=== PATIENT | male | born 1935 | race Caucasian/White ===

== ENCOUNTER → 2016-07-27 | Outpatient (CLI) | payer OTHER ==
[~2016-07-27] MED LIST: ALFU10TA30 PO; AMR2 PO; ASPEC81 PO; ASPI81TA28 PO; ATEN50TA8 PO; ATOR-24 PO; BICA50TA2 PO; BMX1 PO; BUME1TAB PO; CALC500C2 PO; CIPR-255 PO; CLCC1250 PO; CLOP1TAB15 PO; CSD50 PO; DTR5 PO; DUTA0.5C PO; GLIM2TAB PO; GLUC15002 PO; HYDC25 PO; HYDR25TA4 PO; HYDR25TA5 PO; ISOS120T5 PO; ISOS60TA25 PO; LOSA100T65 PO; LOSA1TAB38 PO; LPT40 PO; METF-384 PO; METF1000 PO; MULT-506 PO; NIAC1TAB5 PO; NITR0.4S UT; NXM/40 PO; OXYBUTYNIN PO; OXYC-652 PO; OXYC1TAB3 PO; OXYSR/10 PO; POTA-74 PO; POTA10CA28 PO; SAW450CA5 PO; SULF800T23 PO; TAMS0.4C38 PO; TNR50 PO
[2016-07-27 11:22] LABS: CHOLESTEROL/HDL RATIO 3.1
[2016-07-27 11:40] LABS: ESTIMATED AVERAGE GLUCOSE 183 mg/dl; HA1C FLAG Normal (Normal)
== END | disposition home or self-care (01) ==
LOC: C.LABBC 08:32
PROVIDERS: ATTEND Internal Medicine Cardiovascular Disease
DX: D64.9 Anemia, unspecified (principal); N50.89 Other specified disorders of the male genital organs; W19.XXXA Unspecified fall, initial encounter; E11.9 Type 2 diabetes mellitus without complications; I25.10 Atherosclerotic heart disease of native coronary artery without angina pectoris

== ENCOUNTER → 2016-08-17 | Outpatient (CLI) | payer OTHER ==
[2016-08-17 11:14] LABS: BLOOD UREA NITROGEN 30 mg/dl (7-18); BUN/CREATININE RATIO 21.6 (10-20); CALCIUM 9.1 mg/dl (8.5-10.1); CARBON DIOXIDE 28 mmol/L (21-32); CHLORIDE 101 mmol/L (98-107); GLUCOSE 258 mg/dl (70-99); MAGNESIUM 1.4 mg/dl (1.8-2.4); POTASSIUM 4.5 mmol/L (3.5-5.1); SODIUM 139 mmol/L (136-145)
== END | disposition home or self-care (01) ==
LOC: C.LABBC 08:40
PROVIDERS: ATTEND Internal Medicine
DX: I51.9 Heart disease, unspecified (principal)

== ENCOUNTER 2016-11-09 08:36 | Emergency (ER) | payer OTHER ==
[~2016-11-09] VITALS: Ht 175.3 cm; Wt 125.0 kg
[~2016-11-09 08:36] MED LIST changes: -ALFU10TA30 PO; -ASPI81TA28 PO; -BICA50TA2 PO; -BMX1 PO; -BUME1TAB PO; -CALC500C2 PO; -CIPR-255 PO; -CLOP1TAB15 PO; -CSD50 PO; -DTR5 PO; -DUTA0.5C PO; -GLIM2TAB PO; -GLUC15002 PO; -HYDR25TA4 PO; -HYDR25TA5 PO; -ISOS120T5 PO; -LOSA100T65 PO; -LPT40 PO; -METF-384 PO; -METF1000 PO; -MULT-506 PO; -NIAC1TAB5 PO; -NITR0.4S UT; -NXM/40 PO; -OXYBUTYNIN PO; -OXYC-652 PO; -OXYC1TAB3 PO; -OXYSR/10 PO; -POTA-74 PO; -SAW450CA5 PO; -SULF800T23 PO; -TAMS0.4C38 PO; -TNR50 PO
[2016-11-09 08:42] VITALS: TEMP 36.4; Ht 175.3 cm; Wt 125.0 kg
[2016-11-09] MEDS ORDERED: OXYSR/10 PO (09:27)
[2016-11-09] MEDS ORDERED: GLIM2TAB PO (09:27)
[2016-11-09] MEDS ORDERED: BUME1TAB PO (09:27)
[2016-11-09] MEDS ORDERED: HYDR25TA4 PO (09:27)
[2016-11-09 09:43] LABS: BASO % 0.4 %; BASO ABS # 0.02 K/uL (0-0.2); COMPLETE YES; EOS % 1.9 %; HEMATOCRIT 35.1 % (42-52); IG% 0.4 %; LYMPH % 24.1 %; LYMPH ABS # 1.37 K/uL (1.2-3.4); MEAN CELL VOLUME 94.9 fL (80-100); MEAN CORPUSCULAR HEMOGLOBIN 30.5 pg (25-34); MEAN CORPUSCULAR HGB CONC 32.2 g/dl (32-36); MEAN PLATELET VOLUME 10.7 fL (7.4-10.4); MONO % 7.7 %; NEUT % 65.5 %; PLATELET COUNT 241 K/uL (130-400); WHITE BLOOD COUNT 5.69 K/uL (4.8-10.8)
[2016-11-09 10:12] LABS: URINE APPEARANCE CLEAR (CLEAR); URINE BILIRUBIN NEG (NEG); URINE COLOR YELLOW; URINE NITRITE NEG (NEG); URINE SPECIFIC GRAVITY 1.018 (1.000-1.030); UROBILINOGEN NEG (NEG)
[2016-11-09 10:15] LABS: MANUAL MICROSCOPIC REQUIRED? NO; REVIEW REQ? NO
[2016-11-09 10:19] LABS: ALKALINE PHOSPHATASE 74 U/L (45-117); ALT/SGPT 25 U/L (12-78); AST/SGOT 25 U/L (15-37)
--- NOTE | 2016-11-09 11:01 | EMERGENCY ROOM VISIT NOTE ---
ED Visit Note First contact with patient: 09:06 The patient was seen and examined with Jensen Maier PA-C. I agree with the history, physical and findings. Please see the note for disposition and details.
[2016-11-09 12:13] VITALS: BP 179/73; PULSE 65; O2SAT 94
--- NOTE | 2016-11-10 12:12 | EMERGENCY ROOM VISIT NOTE ---
ED Visit Note First contact with patient: 09:06 Chief Complaint: I'm having problems urinating. History of Present Illness: Mr. Hallman is an 81-year-old white male who ambulates with a walker into the emergency department accompanied by his complaining of urinary urgency and dysuria. Historically patient reports he has a history of urinary retention after surgery and has benign prostatic hypertrophy. Patient reports for the 3-4 days he has been having sensation of urinary urgency and when he attempts to go to the bathroom he is only able to dribble and when he is done he has feelings of incomplete voiding. He reports initially these feelings were mild but has gradually increased over the last 3- 4 days. Associated with the symptoms he reports that he has a pressure-like sensation in the suprapubic area. He rates this discomfort 5/10. The pain is nonradiating. The pain worsens with palpation, sitting in a bumpy car or do her urination. He has not identified any alleviating factors related to the discomfort. He has not taken any medications for his discomfort prior to arrival at the hospital. He denies any associated fevers, chills, sweats, skin eruptions, skin color changes, upper respiratory tract symptoms, shortness of breath, chest pain, upper abdominal pain, nausea, vomiting, back/flank pain, hematuria, urinary burning. Review of Systems: As noted above in history of present illness. All body systems were reviewed and found to be negative as noted above. Past Medical History: (1) Anemia (2) Angina (3) Benign hypertension (4) Cellulitis (5) Coronary artery bypass grafting (6) Diabetes mellitus (7) Hyperlipidemia (8) Left ventricular diastolic dysfunction (9) Myocardial infarction (10) Obesity (11) Osteoarthritis (12) REFLUX ESOPHAGITIS Current Medications: Medications Dose Route/Sig Max Daily Dose Days Date Category Dose Instructions Glucophage (Metformin Hcl) 1,000 Mg Tab 500 Mg PO QDL 11/09/16 Reported [place] (Saw [place] (Serenoa Repens)) 450 Mg Cap 1 Cap PO DAILY 11/09/16 Reported Glucosamine 1500 Complex (Dzhicpteliv-Biengibbgyx-Iih C-) 1 Cap Cap 2 Cap PO DAILY 11/09/16 Reported Bumex (Bumetanide) 1 Mg Tab 2 Tab PO DAILY 11/09/16 Reported Oxycontin (Oxycodone HCl) 10 Mg Tabcr 1 Tab PO BID 11/09/16 Reported Hctz (Hydrochlorothiazide) 25 Mg Tab 25 Mg PO QAM 11/09/16 Reported Amaryl (Glimepiride) 2 Mg Tab 2 Mg PO BID 11/09/16 Reported Antacid (Calcium Carbonate (Antacid)) 500 Mg Chw 250 Mg PO BID 11/09/16 Reported Aspirin Ec (Aspirin) 81 Mg Tab 81 Mg PO DAILY 11/09/16 Reported Uroxatral (Alfuzosin HCl) 10 Mg Tab 10 Mg PO DAILY 05/04/16 Reported Plavix (Clopidogrel Bisulfate) 75 Mg Tab 75 Mg PO DAILY 05/04/16 Reported Micro-K Ext Rel (Potassium Chloride) 10 Meq Capcr 2 Tab PO DAILY 05/21/14 Reported Lipitor (Atorvastatin Calcium) 40 Mg Tab 40 Mg PO HS 02/24/14 Reported Nitrostat (Nitroglycerin) 0.4 Mg Sub 0.4 Mg UT PRN 11/24/12 Reported Niacin 500 Mg Tab 1,000 Mg PO QPM 11/24/12 Reported Avodart (Dutasteride) 0.5 Mg Cap 0.5 Mg PO QAM 11/24/12 Reported Cozaar (Losartan Potassium) 100 Mg Tab 100 Mg PO QAM 11/24/12 Reported Glucophage (Metformin Hcl) 1,000 Mg Tab 1,000 Mg PO BID 11/24/12 Reported AM AND SUPPER Multivitamin (Multivitamins) Tab 1 Tab PO QAM 11/22/07 Reported Imdur Ext Rel (Isosorbide Mononitrate) 60 Mg Ertab 120 Mg PO QAM 11/22/07 Reported Nexium (Esomeprazole Magnesium) 40 Mg Capcr 40 Mg PO QPM 03/27/06 Reported Tenormin (Atenolol) 50 Mg Tab 50 Mg PO QAM 03/27/06 Reported Allergies to Medications: Amoxicillin, celecoxib, diclofenac and naproxen. Social History: Patient is not employed; he lives with his and feels safe in his home environment; he denies tobacco use. Physical Examination: Vital Signs: Date Time Temp Pulse Resp B/P Pulse Ox O2 Delivery O2 Flow Rate FiO2 11/09/16 12:13 65 18 179/73 94 11/09/16 11:22 52 18 129/75 94 Room Air 11/09/16 08:42 36.4 66 18 116/61 93 Room Air GENERAL: 81-year-old male in mild distress due to pain, nontoxic-appearing, afebrile and hemodynamically stable. NEUROLOGICAL: Awake, alert and oriented to person, place and time. Answering questions appropriately and following commands. Good hand eye coordination. No focal motor sensory deficits. SKIN: Warm, dry and pink. No soft tissue eruptions or trauma noted. HEENT: Atraumatic and normocephalic. PERRLA. Sclera white and conjunctiva pink. Airway patent. Speech normal. No lymphadenopathy. Trachea midline. No jugular venous distention. BACK: No tenderness over the bony cervical, thoracic and lumbar spine. No CVA tenderness. THORAX: Lungs sounds are clear to auscultation and equal bilaterally with symmetrical chest wall. No wheezing, rales or rhonchi. HEART: Regular rate and rhythm. No gallops, rubs or murmurs are appreciated. ABDOMEN: Large and protuberant, soft with mild diffuse tenderness throughout the abdomen slightly more pronounced in the suprapubic area. Positive bowel sounds in all quadrants. No guarding, rigidity or organomegaly. EXTREMITIES: Moves all extremities well on command and with purpose. All distal neurovascular statuses are intact and equal bilaterally. Moderate to severe dependent lymphedema in the legs with prominence of the right leg. When questioned patient reports this was normal and has not worsened. ED Course: Patient is assessed as noted above. Laboratory Testing: Test 11/09/16 09:30 11/09/16 09:45 Range/Units White Blood Count 5.69 4.8-10.8 K/uL Red Blood Count 3.70 4.7-6.1 M/uL Hemoglobin 11.3 14.0-18.0 g/dL Hematocrit 35.1 42-52 % Mean Corpuscular Volume 94.9 80-100 fL Mean Corpuscular Hemoglobin 30.5 25-34 pg Mean Corpuscular Hemoglobin Concent 32.2 32-36 g/dl Platelet Count 241 130-400 K/uL Mean Platelet Volume 10.7 7.4-10.4 fL Neutrophils (%) (Auto) 65.5 % Lymphocytes (%) (Auto) 24.1 % Monocytes (%) (Auto) 7.7 % Eosinophils (%) (Auto) 1.9 % Basophils (%) (Auto) 0.4 % Neutrophils # (Auto) 3.73 1.4-6.5 K/uL Lymphocytes # (Auto) 1.37 1.2-3.4 K/uL Monocytes # (Auto) 0.44 0.11-0.59 K/uL Eosinophils # (Auto) 0.11 0-0.5 K/uL Basophils # (Auto) 0.02 0-0.2 K/uL RDW Standard Deviation 49.0 36.4-46.3 fL RDW Coefficient of Variation 14.2 11.5-14.5 % Immature Granulocyte % (Auto) 0.4 % Immature Granulocyte # (Auto) 0.02 0.00-0.02 K/uL Total Bilirubin 0.6 0.2-1 mg/dl Direct Bilirubin 0-0.2 mg/dl Aspartate Amino Transf (AST/SGOT) 25 15-37 U/L Alanine Aminotransferase (ALT/SGPT) 25 12-78 U/L Alkaline Phosphatase 74 45-117 U/L Total Protein 6.3 6.4-8.2 gm/dl Albumin 3.4 3.4-5.0 gm/dl Lipase 132 73-393 U/L Urine Color YELLOW Urine Appearance CLEAR CLEAR Urine pH 6.0 4.5-7.5 Urine Specific [place] 1.018 1.000-1.030 Urine Protein NEG NEG Urine Glucose (UA) TRACE NEG Urine Ketones NEG NEG Urine Occult Blood NEG NEG Urine Nitrite NEG NEG Urine Bilirubin NEG NEG Urine Urobilinogen NEG NEG Urine Leukocyte Esterase NEG NEG Urine Culture - Preliminary, NO GROWTH - LESS THAN 1,000 COLONIES/ ... Bladder Scan: 350 mL of urine. A Funk catheter was placed by nursing staff and left to drain; just prior to discharge I checked the bag and was approximately 750 mL in the bag. Patient was hydrated with normal saline; he was offered pain medications and refused. Patient was reassessed multiple times during his stay in the emergency department. Patient's case was reviewed with Dr. Delaney; he independently assessed the patient we agreed on diagnostic approach, treatment, disposition and plan. Patient sure on that her was switched to a leg bag. Patient are educated about tonight's findings and instructed on his treatment plan; they verbalized understanding and agreement with this plan. Clinical Impression: Acute urinary retention. Decision-Making: Initially my differential diagnosis I considered urinary retention, urinary tract infection, kidney stone and other causes. Disposition: Patient discharged home in stable condition accompanied by his ; prior to departure he was reassessed and subjectively reported he was pain and symptom-free. Plan: Patient was encouraged to continue his current medications as prescribed. Patient was encouraged to call his family doctor and his urologist for follow- up care and treatment and catheter removal. Patient was encouraged return the ED for any fevers, worsening abdominal discomfort, bloody urine, vomiting or any new/concerning symptoms.
[2016-11-20] MEDS ORDERED: SAW450CA5 PO (09:27)
[2016-11-20] MEDS ORDERED: CALC500C2 PO (09:27)
[2016-11-20] MEDS ORDERED: ASPI81TA28 PO (09:27)
[2016-11-20] MEDS ORDERED: GLUC15002 PO (09:27)
[2016-11-20] MEDS ORDERED: METF-384 PO (09:29)
[2016-11-20] MEDS ORDERED: MULT-506 PO (10:00)
[2016-11-20] MEDS ORDERED: CLOP1TAB15 PO (10:38)
[2016-11-20] MEDS ORDERED: ALFU10TA2 PO (10:40)
[2016-11-20] MEDS ORDERED: NXM/40 PO (15:58)
[2016-11-27] MEDS ORDERED: DTR5 PO (11:13)
[2017-03-18] MEDS ORDERED: OXYC1TAB3 PO (14:42)
== END 2016-11-09 12:14 | disposition home or self-care (01) ==
LOC: C.EDB 08:37
DX: R33.9 Retention of urine, unspecified (principal); I10 Essential (primary) hypertension; E11.9 Type 2 diabetes mellitus without complications; E78.5 Hyperlipidemia, unspecified; I25.2 Old myocardial infarction; K21.0 Gastro-esophageal reflux disease with esophagitis; M19.90 Unspecified osteoarthritis, unspecified site; Z98.61 Coronary angioplasty status; Z79.82 Long term (current) use of aspirin; Z79.899 Other long term (current) drug therapy; Z88.1 Allergy status to other antibiotic agents; Z88.8 Allergy status to other drugs, medicaments and biological substances

== ENCOUNTER 2016-11-16 20:37 | Emergency (ER) | payer OTHER ==
[~2016-11-16] VITALS: Ht 172.7 cm; Wt 127.3 kg
[~2016-11-16 20:37] MED LIST changes: -AMR2 PO; -ASPEC81 PO; +BUME1TAB PO; -CLCC1250 PO; +GLIM2TAB PO; -HYDC25 PO; +HYDR25TA4 PO; +OXYSR/10 PO
[2016-11-16 20:42] VITALS: TEMP 37; Ht 172.7 cm; Wt 127.3 kg
--- NOTE | 2016-11-16 21:22 | EMERGENCY ROOM VISIT NOTE ---
History Report prepared by Rosalinda: Sun Abraham Under the Supervision of: Dr. Julius Villanueva M.D. First contact with patient: 21:15 Chief Complaint: UNABLE TO VOID Stated Complaint: UNABLE TO URINATE,PAINFUL History of Present Illness The patient is a 81 year old male who presents to the Emergency Room with complaints of constant inability to void beginning 2 days ago. The patient states that he was seen here last week for similar symptoms and does not have an appointment with his urologist until the end of the month. He complains of dysuria. He denies any back pain. The patient reports that he did have an episode of incontinence just as he arrived to his room in the ED. Source of History: patient Onset: 2 days ago Position: other (urinary) Quality: other (inability to void) Timing: constant Associated Symptoms: + urinary symptoms, No abdominal pain Note: Pt notes incontinence. Review of Systems See HPI for pertinent positives & negatives. A total of 10 systems reviewed and were otherwise negative. Past Medical & Surgical Medical Problems: (1) Anemia (2) Angina (3) Benign hypertension (4) Cellulitis (5) Coronary artery bypass grafting (6) Diabetes mellitus (7) Hyperlipidemia (8) Left ventricular diastolic dysfunction (9) Myocardial infarction (10) Obesity (11) Osteoarthritis (12) REFLUX ESOPHAGITIS Family History Diabetes mellitus FH: prostate cancer FHx: colon cancer Hypertension Social History Smoking Status: Former Smoker Drug Use: none Marital Status: Housing Status: lives with family Occupation Status: retired Current/Historical Medications Scheduled Alfuzosin Hcl (Uroxatral), 10 MG PO DAILY Aspirin (Aspirin Ec), 81 MG PO DAILY Atenolol (Tenormin), 50 MG PO QAM Atorvastatin (Lipitor), 40 MG PO HS Bumetanide (Bumex), 2 TAB PO DAILY Calcium Carbonate (Antacid) (Antacid), 250 MG PO BID Clopidogrel (Plavix), 75 MG PO DAILY Dutasteride (Avodart), 0.5 MG PO QAM Esomeprazole Magnesium (Nexium), 40 MG PO QPM Glimepiride (Amaryl), 2 MG PO BID Kcibpeqjlsx-Gndhiunlsbh-Hyt C- (Glucosamine 1500 Complex), 2 CAP PO DAILY Hydrochlorothiazide (Hctz), 25 MG PO QAM Isosorbide Mononitrate Ext Rel (Imdur Ext Rel), 120 MG PO QAM Losartan Potassium (Cozaar), 100 MG PO QAM Metformin Hcl (Glucophage), 1,000 MG PO BID Metformin Hcl (Glucophage), 500 MG PO QDL Multivitamin (Multivitamin), 1 TAB PO QAM Niacin (Niacin), 1,000 MG PO QPM Nitroglycerin (Nitrostat), 0.4 MG UT PRN Oxycodone HCl (Oxycontin), 1 TAB PO BID Potassium Chloride (Micro-K Ext Rel), 2 TAB PO DAILY Saw [place] (Serenoa Repens) (Saw [place]), 1 CAP PO DAILY Sulfamethoxazole-Trimethoprim (Bactrim Ds 800MG/160MG), 1 TAB PO BID Allergies Coded Allergies: Adhesives (Verified Allergy, Unknown, DRAPES TORE PT'S SKIN OFF, 11/16/16) Bee Venom (Verified Allergy, Unknown, SWELLING, 11/16/16) Diclofenac (Verified Allergy, Unknown, 11/16/16) Naproxen (Verified Allergy, Unknown, 11/16/16) Amoxicillin (Verified Adverse Reaction, Unknown, CAUSES DIARRHEA, 11/16/16) Celecoxib (Verified Adverse Reaction, Unknown, gi bleed, 11/16/16) Physical Exam Vital Signs Date Time Temp Pulse Resp B/P Pulse Ox O2 Delivery O2 Flow Rate FiO2 11/16/16 20:42 37.0 66 18 179/86 90 Room Air Physical Exam GENERAL: Patient is a healthy-appearing well-nourished HEAD: Normocephalic atraumatic EYES: Ocular movements intact pupils equal and react to light OROPHARYNX mucous membranes are moist no exudates present no erythema or edema present NECK: Supple no nuchal rigidity CHEST: Good equal expansion LUNGS: Clear and equal to auscultation CARDIAC: Normal S1 and S2 ABDOMEN: Soft nontender no guarding BACK: No CVA tenderness, no evidence of tenderness to the back. EXTREMITIES: No pain upon palpation normal muscle strength in all groups no clubbing cyanosis or edema. NEURO: Patient is following commands is answering questions appropriately. Alert and oriented x3 Cranial Nerves 2-12 grossly intact. No evidence of saddle anesthesia. Medical Decision & Procedures Laboratory Results Test 11/16/16 22:18 Urine Color YELLOW Urine Appearance CLEAR (CLEAR) Urine pH 5.0 (4.5-7.5) Urine Specific [place] 1.010 (1.000-1.030) Urine Protein NEG (NEG) Urine Glucose (UA) 1+ (NEG) Urine Ketones NEG (NEG) Urine Occult Blood TRACE (NEG) Urine Nitrite NEG (NEG) Urine Bilirubin NEG (NEG) Urine Urobilinogen NEG (NEG) Urine Leukocyte Esterase TRACE (NEG) Urine WBC (Auto) 1-5 /hpf (0-5) Urine RBC (Auto) 0-4 /hpf (0-4) Urine Hyaline Casts (Auto) 1-5 /lpf (0-5) Urine Epithelial Cells (Auto) 5-10 /lpf (0-5) Urine Bacteria (Auto) NEG (NEG) Labs reviewed by ED physician. Medications Administered Medications (Trade) Dose Ordered Sig/Jez Route Start Time Stop Time Status Last Admin Dose Admin Tamsulosin HCl (Flomax Cap) 0.4 mg NOW STAT PO 11/16/16 22:16 11/16/16 22:17 DC 11/16/16 22:43 0.4 MG ED Course 2114: Past medical records reviewed. The patient was evaluated in room B11B. A complete history and physical examination was performed. Medical Decision This is an 81-year-old male who presents emergency department complaining of urinary retention. The patient on bladder scan has 480 present. However with a Funk placed the patient has more than 800 out. Based on these findings I believe the patient was having overflow incontinence. He is feeling much better with the Funk in place. I feel he can be safely discharged home for follow-up with urology. Patient was in agreement with the treatment plan. Impression Primary Impression: Urinary retention Scribe Attestation The scribe's documentation has been prepared under my direction and personally reviewed by me in its entirety. I confirm that the note above accurately reflects all work, treatment, procedures, and medical decision making performed by me. Departure Information Dispostion Home / Self-Care Referrals Kori Parmar D.O. (PCP) Patient Instructions My [facility]
[2016-11-16] MEDS ORDERED: TAMSULOSIN HCL 0.4 MG CAP PO STA (22:16)
[2016-11-16] MEDS ORDERED: TAMS0.4C38 PO (22:17)
[2016-11-16 22:40] VITALS: BP 120/58; PULSE 60; O2SAT 93
[2016-11-16 22:46] LABS: URINE APPEARANCE CLEAR (CLEAR); URINE BILIRUBIN NEG (NEG); URINE COLOR YELLOW; URINE NITRITE NEG (NEG); UROBILINOGEN NEG (NEG); ZZURINE CULT IF INDIC CATH NO
[2016-11-16 22:48] LABS: MANUAL MICROSCOPIC REQUIRED? NO; REVIEW REQ? NO
[2016-11-20] MEDS ORDERED: GLUC15002 PO (09:27)
[2016-11-20] MEDS ORDERED: CALC500C2 PO (09:27)
[2016-11-20] MEDS ORDERED: SAW450CA5 PO (09:27)
[2016-11-20] MEDS ORDERED: ASPI81TA28 PO (09:27)
[2016-11-20] MEDS ORDERED: METF-384 PO (09:29)
[2016-11-20] MEDS ORDERED: MULT-506 PO (10:00)
[2016-11-20] MEDS ORDERED: CLOP1TAB15 PO (10:38)
[2016-11-20] MEDS ORDERED: ALFU10TA2 PO (10:40)
[2016-11-20] MEDS ORDERED: NXM/40 PO (15:58)
[2016-11-27] MEDS ORDERED: DTR5 PO (11:13)
[2017-03-18] MEDS ORDERED: OXYC1TAB3 PO (14:42)
== END 2016-11-16 22:41 | disposition home or self-care (01) ==
LOC: C.EDB 20:38
DX: R33.9 Retention of urine, unspecified (principal); I10 Essential (primary) hypertension; E78.5 Hyperlipidemia, unspecified; E11.9 Type 2 diabetes mellitus without complications; I25.2 Old myocardial infarction; K21.9 Gastro-esophageal reflux disease without esophagitis; M19.90 Unspecified osteoarthritis, unspecified site; Z98.61 Coronary angioplasty status; Z87.891 Personal history of nicotine dependence; Z79.82 Long term (current) use of aspirin; Z79.4 Long term (current) use of insulin; Z79.899 Other long term (current) drug therapy; Z88.1 Allergy status to other antibiotic agents; Z88.8 Allergy status to other drugs, medicaments and biological substances; Z91.030 Bee allergy status; Z91.09 Other allergy status, other than to drugs and biological substances; Z83.3 Family history of diabetes mellitus; Z82.49 Family history of ischemic heart disease and other diseases of the circulatory system; Z80.9 Family history of malignant neoplasm, unspecified; Z80.42 Family history of malignant neoplasm of prostate

== ENCOUNTER 2016-11-20 17:25 | Inpatient (IN) | payer OTHER ==
[~2016-11-20] VITALS: Ht 175.3 cm; Wt 128.6 kg
[~2016-11-20 17:25] MED LIST changes: +ALFU10TA2 PO; +ASPI81TA28 PO; +CALC500C2 PO; +CLOP1TAB15 PO; +GLUC15002 PO; +METF-384 PO; +MULT-506 PO; +NXM/40 PO; +SAW450CA5 PO
[2016-11-20] MEDS ORDERED: LPT40 PO (18:26)
[2016-11-20] MEDS ORDERED: AMR2 PO (18:26)
[2016-11-20] MEDS ORDERED: POTA-74 PO (18:26)
[2016-11-20] MEDS ORDERED: TNR50 PO (18:26)
[2016-11-20] MEDS ORDERED: LOSA100T65 PO (18:26)
[2016-11-20] MEDS ORDERED: ISOS120T5 PO (18:26)
[2016-11-20] MEDS ORDERED: OXYC-738 PO (18:26)
[2016-11-20] MEDS ORDERED: BMX1 PO (18:35)
[2016-11-20] MEDS ORDERED: HYDR25TA5 PO (18:35)
[2016-11-20 18:47] LABS: BASO % 0.8 %; BASO ABS # 0.05 K/uL (0-0.2); COMPLETE YES; EOS % 3.2 %; HEMATOCRIT 35.5 % (42-52); IG% 0.3 %; LYMPH % 30.2 %; LYMPH ABS # 1.97 K/uL (1.2-3.4); MEAN CELL VOLUME 93.9 fL (80-100); MEAN PLATELET VOLUME 10.4 fL (7.4-10.4); MONO % 6.3 %; NEUT % 59.2 %; PLATELET COUNT 244 K/uL (130-400); RED BLOOD COUNT 3.78 M/uL (4.7-6.1); WHITE BLOOD COUNT 6.53 K/uL (4.8-10.8)
--- NOTE | 2016-11-20 18:57 | DIAGNOSTIC IMAGING REPORT ---
CT SCAN OF THE ABDOMEN AND PELVIS WITHOUT CONTRAST CLINICAL HISTORY: Hematuria. Inability to void. COMPARISON STUDY: No previous studies for comparison. TECHNIQUE: CT scan of the abdomen and pelvis was performed from the lung bases to the proximal femurs. Images are reviewed in the axial, sagittal, and coronal planes. IV contrast was not administered for this examination. CT DOSE: 1903.48 mGy.cm FINDINGS: Lower chest: There are mild basilar atelectatic changes. There is a small hiatal hernia. Liver: There is a 2 cm left lobe hypodensity, likely representing a cyst. Gallbladder: Unremarkable. Spleen: Normal in size and attenuation. Pancreas: Unremarkable. Adrenal glands: There is minor nodular thickening of the left adrenal gland. Kidneys: No renal, ureteral, or bladder calculi are visualized. There is a 3 cm upper pole right renal cyst. Bowel: There are no transition zones to indicate bowel obstruction. There is extensive colonic diverticulosis. There are no acute peridiverticular inflammatory changes present. There are no findings to indicate acute appendicitis. Peritoneum: There is no intraperitoneal free air or abdominal ascites. There is a small fat-containing umbilical hernia. There multiple additional fat-containing upper abdominal ventral hernias. Vasculature: The abdominal aorta is normal in course and caliber. Adenopathy: None. Pelvic viscera: There is indwelling Funk catheter present. The prostate is enlarged measuring 5.9 cm transversely. There is air within the bladder, likely iatrogenic. There is increased density within the bladder, likely are presenting hemorrhage. There is mild bladder wall thickening. Several small diverticula are suspected. Skeletal structures: There are postsurgical changes of a total right hip arthroplasty. There are moderately advanced multilevel degenerative changes present within the spine area there is epidural gas at the L5-S1 level, likely secondary to degenerative disc disease/disc herniation. IMPRESSION: 1. No evidence of bowel obstruction. No evidence of free air 2. Pandiverticulosis. No evidence of acute diverticulitis 3. Multiple fat-containing ventral hernias 4. Enlarged prostate 5. Presumed hemorrhage within the bladder. Mild bladder wall thickening with several small bladder diverticula. Electronically signed by: Jimmy Catalan M.D. 11/20/2016 6:55 PM Dictated Date/Time: 11/20/2016 6:48 PM
[2016-11-20 19:05] LABS: ALT/SGPT 30 U/L (12-78); AST/SGOT 20 U/L (15-37); BLOOD UREA NITROGEN 32 mg/dl (7-18); BUN/CREATININE RATIO 21.1 (10-20); CALCIUM 9.5 mg/dl (8.5-10.1); CARBON DIOXIDE 30 mmol/L (21-32); CHLORIDE 101 mmol/L (98-107); GLUCOSE 162 mg/dl (70-99); POTASSIUM 4.3 mmol/L (3.5-5.1); SODIUM 139 mmol/L (136-145)
[2016-11-20 19:07] LABS: ALKALINE PHOSPHATASE 80 U/L (45-117)
[2016-11-20] MEDS ORDERED: NIACIN 500 MG TAB IMMEDIATE RELEASE PO STA (19:24)
[2016-11-20] MEDS ORDERED: ATORVASTATIN 40 MG TAB PO STA (19:24)
[2016-11-20] MEDS ORDERED: METFORMIN HCL 500 MG TAB PO STA (19:24)
[2016-11-20] MEDS ORDERED: SULFAMETHOXAZOLE/TRIMETHOPRIM DS 800/160MG TAB PO STA (19:24)
[2016-11-20] MEDS ORDERED: OXYCODONE HCL IR 5 MG TAB (IMMEDIATE RELEASE) PO STA (19:24)
[2016-11-20] MEDS ORDERED: CALCIUM CARBONATE 500 MG CHEWABLE PO STA (19:24)
[2016-11-20] MEDS ORDERED: GLIMEPIRIDE 2 MG TAB PO STA (19:24)
--- NOTE | 2016-11-20 19:37 | EMERGENCY ROOM VISIT NOTE ---
History Report prepared by Rosalinda: Ronny Pacheco Under the Supervision of: Dr. Julius Villanueva M.D. First contact with patient: 17:39 Chief Complaint: UNABLE TO VOID Stated Complaint: UNABLE TO VOID,BLEED Nursing Triage Summary: Pt states "I think my catheter is blocked and it's bloody". last noticed it draining around noon. Was told by PCP to stop Plavix. Pt has been having urinary difficulty ongoing te last 10 days. per unable to get in to see a Urologist History of Present Illness The patient is a 81 year old male who presents to the Emergency Room with complaints of constant blocked catheter beginning 6 hours ago. He has a catheter in place chronically and states that is has not been draining. He states that there is bleeding in the area. The patient spoke with his PCP and was told to stop his Plavix. He notes that has had some difficulty urinating the past 10 days. He also complains of abdominal and groin pain. Nothing has improved his symptoms. Source of History: patient Onset: 6 hours ago Quality: other (blocked catheter) Timing: constant Modifying Factors (Relieving): other (none) Associated Symptoms: + abdominal pain Note: The patient also complains of groin pain. Review of Systems See HPI for pertinent positives & negatives. A total of 10 systems reviewed and were otherwise negative. Past Medical & Surgical Medical Problems: (1) Anemia (2) Angina (3) Benign hypertension (4) Cellulitis (5) Coronary artery bypass grafting (6) Diabetes mellitus (7) Gross hematuria (8) Hyperlipidemia (9) Left ventricular diastolic dysfunction (10) Myocardial infarction (11) Obesity (12) Osteoarthritis (13) REFLUX ESOPHAGITIS Family History Diabetes mellitus FH: prostate cancer FHx: colon cancer Hypertension Social History Smoking Status: Never Smoker Drug Use: none Marital Status: Housing Status: lives with family Occupation Status: retired Current/Historical Medications Scheduled Alfuzosin Hcl (Uroxatral), 10 MG PO DAILY Aspirin (Aspirin Ec), 81 MG PO DAILY Atenolol (Atenolol), 50 MG PO QAM Atorvastatin (Atorvastatin Calcium), 40 MG PO HS Bumetanide (Bumetanide), 2 MG PO DAILY Calcium Carbonate (Antacid) (Antacid), 250 MG PO BID Clopidogrel (Plavix), 75 MG PO UD Dutasteride (Avodart), 0.5 MG PO QAM Esomeprazole Magnesium (Nexium), 40 MG PO QPM Glimepiride (Glimepiride), 2 MG PO BID Dpgcapcodxx-Wmsmoutlsja-Zpc C- (Glucosamine 1500 Complex), 2 CAP PO DAILY Hydrochlorothiazide (Hydrochlorothiazide), 25 MG PO QAM Isosorbide Mononitrate Ext Rel (Imdur Ext Rel), 120 MG PO QPM Losartan Potassium (Cozaar), 100 MG PO QAM Metformin Hcl (Glucophage), 1,000 MG PO BID Metformin Hcl (Glucophage), 500 MG PO WITH LUNCH Multivitamin (Multivitamin), 1 TAB PO QAM Niacin (Niacin), 1,000 MG PO QPM Oxycodone HCl (Oxycodone HCl ER), 10 MG PO BID Potassium Chloride (Potassium Chloride Er), 10 MEQ PO DAILY Saw [place] (Serenoa Repens) (Saw [place]), 450 MG PO DAILY Sulfamethoxazole-Trimethoprim (Bactrim Ds 800MG/160MG), 1 TAB PO BID Scheduled PRN Nitroglycerin (Nitrostat), 0.4 MG UT UD PRN for Chest Pain Allergies Coded Allergies: Adhesives (Verified Allergy, Unknown, DRAPES TORE PT'S SKIN OFF, 11/16/16) Bee Venom (Verified Allergy, Unknown, SWELLING, 11/16/16) Diclofenac (Verified Allergy, Unknown, 11/16/16) Naproxen (Verified Allergy, Unknown, 11/16/16) Amoxicillin (Verified Adverse Reaction, Unknown, CAUSES DIARRHEA, 11/16/16) Celecoxib (Verified Adverse Reaction, Unknown, gi bleed, 11/16/16) Physical Exam Vital Signs Date Time Temp Pulse Resp B/P Pulse Ox O2 Delivery O2 Flow Rate FiO2 11/20/16 19:55 60 18 92 11/20/16 19:39 58 11/20/16 19:36 58 18 136/72 95 Room Air 11/20/16 19:34 136/72 11/20/16 17:33 36.8 66 18 160/74 95 Room Air Physical Exam GENERAL: Patient is a healthy-appearing well-nourished HEAD: Normocephalic atraumatic EYES: Ocular movements intact pupils equal and react to light OROPHARYNX mucous membranes are moist no exudates present no erythema or edema present NECK: Supple no nuchal rigidity CHEST: Good equal expansion LUNGS: Clear and equal to auscultation CARDIAC: Normal S1 and S2 ABDOMEN: Soft nontender no guarding : Funk catheter in place. Large amount of blood in the Funk. BACK: No CVA tenderness EXTREMITIES: No pain upon palpation normal muscle strength in all groups no clubbing cyanosis or edema NEURO: Patient is following commands is answering questions appropriately. Alert and oriented x3 Cranial Nerves 2-12 grossly intact Medical Decision & Procedures ER Provider Diagnostic Interpretation: CT results as stated below per my review and radiologist interpretation: CT SCAN OF THE ABDOMEN AND PELVIS WITHOUT CONTRAST FINDINGS: Lower chest: There are mild basilar atelectatic changes. There is a small hiatal hernia. Liver: There is a 2 cm left lobe hypodensity, likely representing a cyst. Gallbladder: Unremarkable. Spleen: Normal in size and attenuation. Pancreas: Unremarkable. Adrenal glands: There is minor nodular thickening of the left adrenal gland. Kidneys: No renal, ureteral, or bladder calculi are visualized. There is a 3 cm upper pole right renal cyst. Bowel: There are no transition zones to indicate bowel obstruction. There is extensive colonic diverticulosis. There are no acute peridiverticular inflammatory changes present. There are no findings to indicate acute appendicitis. Peritoneum: There is no intraperitoneal free air or abdominal ascites. There is a small fat-containing umbilical hernia. There multiple additional fat-containing upper abdominal ventral hernias. Vasculature: The abdominal aorta is normal in course and caliber. Adenopathy: None. Pelvic viscera: There is indwelling Funk catheter present. The prostate is enlarged measuring 5.9 cm transversely. There is air within the bladder, likely iatrogenic. There is increased density within the bladder, likely are presenting hemorrhage. There is mild bladder wall thickening. Several small diverticula are suspected. Skeletal structures: There are postsurgical changes of a total right hip arthroplasty. There are moderately advanced multilevel degenerative changes present within the spine area there is epidural gas at the L5-S1 level, likely secondary to degenerative disc disease/disc herniation. IMPRESSION: 1. No evidence of bowel obstruction. No evidence of free air 2. Pandiverticulosis. No evidence of acute diverticulitis 3. Multiple fat-containing ventral hernias 4. Enlarged prostate 5. Presumed hemorrhage within the bladder. Mild bladder wall thickening with several small bladder diverticula. Electronically signed by: Jimmy Catalan M.D. Laboratory Results 11/20/16 18:35 Red Blood Count 3.78, Mean Corpuscular Volume 93.9, Mean Corpuscular Hemoglobin 31.0, Mean Corpuscular Hemoglobin Concent 33.0, Mean Platelet Volume 10.4, Neutrophils (%) (Auto) 59.2, Lymphocytes (%) (Auto) 30.2, Monocytes (%) (Auto) 6.3, Eosinophils (%) (Auto) 3.2, Basophils (%) (Auto) 0.8, Neutrophils # (Auto) 3.87, Lymphocytes # (Auto) 1.97, Monocytes # (Auto) 0.41, Eosinophils # (Auto) 0.21, Basophils # (Auto) 0.05 11/20/16 18:35 Test 11/20/16 18:30 11/20/16 18:35 Activated Partial Thromboplast Time 30.1 SECONDS (21.0-31.0) Partial Thromboplastin Ratio 1.2 White Blood Count 6.53 K/uL (4.8-10.8) Red Blood Count 3.78 M/uL (4.7-6.1) Hemoglobin 11.7 g/dL (14.0-18.0) Hematocrit 35.5 % (42-52) Mean Corpuscular Volume 93.9 fL (80-100) Mean Corpuscular Hemoglobin 31.0 pg (25-34) Mean Corpuscular Hemoglobin Concent 33.0 g/dl (32-36) Platelet Count 244 K/uL (130-400) Mean Platelet Volume 10.4 fL (7.4-10.4) Neutrophils (%) (Auto) 59.2 % Lymphocytes (%) (Auto) 30.2 % Monocytes (%) (Auto) 6.3 % Eosinophils (%) (Auto) 3.2 % Basophils (%) (Auto) 0.8 % Neutrophils # (Auto) 3.87 K/uL (1.4-6.5) Lymphocytes # (Auto) 1.97 K/uL (1.2-3.4) Monocytes # (Auto) 0.41 K/uL (0.11-0.59) Eosinophils # (Auto) 0.21 K/uL (0-0.5) Basophils # (Auto) 0.05 K/uL (0-0.2) RDW Standard Deviation 47.0 fL (36.4-46.3) RDW Coefficient of Variation 13.7 % (11.5-14.5) Immature Granulocyte % (Auto) 0.3 % Immature Granulocyte # (Auto) 0.02 K/uL (0.00-0.02) Prothrombin Time 10.8 SECONDS (9.0-12.0) Prothromb Time International Ratio 1.0 (0.9-1.1) Anion Gap 8.0 mmol/L (3-11) Est Creatinine Clear Calc Drug Dose 50.3 ml/min Estimated GFR () 49.5 Estimated GFR (Non- 42.7 BUN/Creatinine Ratio 21.1 (10-20) Calcium Level 9.5 mg/dl (8.5-10.1) Total Bilirubin 0.4 mg/dl (0.2-1) Direct Bilirubin 0.1 mg/dl (0-0.2) Aspartate Amino Transf (AST/SGOT) 20 U/L (15-37) Alanine Aminotransferase (ALT/SGPT) 30 U/L (12-78) Alkaline Phosphatase 80 U/L (45-117) Troponin I < 0.015 ng/ml (0-0.045) Total Protein 7.2 gm/dl (6.4-8.2) Albumin 3.5 gm/dl (3.4-5.0) Lipase 152 U/L (73-393) Labs reviewed by ED physician. Medications Administered Medications (Trade) Dose Ordered Sig/Jez Route Start Time Stop Time Status Last Admin Dose Admin Glimepiride (Amaryl Tab) 2 mg NOW STAT PO 11/20/16 19:24 11/20/16 19:29 DC 11/20/16 20:03 2 MG Atorvastatin Calcium (Lipitor Tab) 40 mg NOW STAT PO 11/20/16 19:24 11/20/16 19:29 DC 11/20/16 20:03 40 MG Oxycodone HCl (Roxicodone Immediate Rel Tab) 10 mg NOW STAT PO 11/20/16 19:24 11/20/16 19:29 DC 11/20/16 20:02 10 MG Trimethoprim/ Sulfamethoxazole (Septra Ds 800/ 160MG Tab) 1 tab NOW STAT PO 11/20/16 19:24 11/20/16 19:29 DC 11/20/16 20:00 1 TAB Calcium Carbonate (Tums Chew Tab) 500 mg NOW STAT PO 11/20/16 19:24 11/20/16 19:29 DC 11/20/16 20:05 500 MG Niacin (Niacin Tab) 500 mg NOW STAT PO 11/20/16 19:24 11/20/16 19:29 DC 11/20/16 20:04 500 MG Metformin HCl (Glucophage Tab) 1,000 mg NOW STAT PO 11/20/16 19:24 11/20/16 19:29 DC 11/20/16 20:06 1,000 MG ED Course 1743: Past medical records reviewed. The patient was evaluated in room B7. A complete history and physical examination was performed. 1923: Ordered Glucophage Tab 1000 mg PO, Niacin Tab 500 mg PO, Tums chew Tab 500 mg PO, Septra Ds 800/160 mg 1 tab PO, Roxicodone Immediate Rel Tab 10 mg PO , Lipitor Tab 40 mg PO, Amaryl Tab 2 mg PO. 1929: Upon reexamination the patient is resting comfortably. I discussed results and treatment plan with the patient. He verbalizes agreement and understanding. I spoke with Dr. Rock from the [facility] Hospitalist Service. The patient will be evaluated for further management. Medical Decision This is an 81-year-old male who presents emergency department complaining of being unable to PE. The patient has a Funk in place and it is blocked. We tried irrigating the Funk and sucked out several large clots however we are still unable to drain the patient's bladder. For this reason a triple-lumen Funk was placed to begin continuous irrigation. I did discuss the case with urology who asked that patient be admitted to the hospitalist service. The patient was sent for CT of the abdomen and pelvis which was concerning for diverticulosis of the bladder. Patient and are in agreement with the treatment plan. Consults Time Called: 1909 Consulting Physician: Dr. Regalado -Urology Returned Call: 1912 I discussed the patient's case with Dr. Regalado. He recommends that the patient be admitted to the hospital for observation. Additional Consults: Time Called: 1919 Consulted Physician: Dr. Rock -[facility] Returned Call: 1929 Additional Comments: I discussed the patient's case with Dr. Rock, he has agreed to evaluate the patient for further management and care. Impression Primary Impression: Funk catheter problem Scribe Attestation The scribe's documentation has been prepared under my direction and personally reviewed by me in its entirety. I confirm that the note above accurately reflects all work, treatment, procedures, and medical decision making performed by me. Departure Information Dispostion Being Evaluated By Hospitalist Referrals Kori Parmar D.O. (PCP) Patient Instructions My [facility] Problem Qualifiers Primary Impression: Funk catheter problem Encounter type: initial encounter Qualified Codes: T83.9XXA - Unspecified complication of genitourinary prosthetic device, implant and graft, initial encounter
[2016-11-20 19:47] LABS: PROTHROMBIN TIME (PATIENT) 10.8 SECONDS (9.0-12.0)
[2016-11-20] MEDS ORDERED: GLUCOSE 10 TABS/TUBE PO PRN (20:15)
[2016-11-20] MEDS ORDERED: ONDANSETRON INJ 2 MG/ML 2 ML VIAL IV PRN (20:15)
[2016-11-20] MEDS ORDERED: ACETAMINOPHEN 325 MG TAB PO PRN (20:15)
[2016-11-20] MEDS ORDERED: GLUCOSE 40% GEL 15 GM TUBE PO PRN (20:15)
[2016-11-20] MEDS ORDERED: DC ALL PREVIOUSLY ORDERED DIABETES MEDS ONE (20:15)
[2016-11-20] MEDS ORDERED: GLUCAGON FOR INJ 1 MG VIAL SQ PRN (20:15)
[2016-11-20] MEDS ORDERED: NITROGLYCERIN 0.4 MG SL PER TAB CHARGE UT PRN (20:15)
[2016-11-20] MEDS ORDERED: DEXTROSE 50% 50 ML SYR IV PRN (20:15)
[2016-11-20] MEDS ORDERED: ISOSORBIDE MONONITRATE 60 MG TABCR PO STA (20:16)
[2016-11-20] MEDS ORDERED: NITR0.4S UT (20:22)
[2016-11-20] MEDS ORDERED: DUTA0.5C PO (20:22)
[2016-11-20] MEDS ORDERED: METF1000 PO (20:22)
[2016-11-20] MEDS ORDERED: NIAC1TAB5 PO (20:22)
[2016-11-20 20:23] LABS: PARTIAL THROMBOPLASTIN RATIO 1.2
--- NOTE | 2016-11-20 20:50 | History and Physical ---
History & Physical Date & Time of Service: November 20, 2016 at 20:34 Chief Complaint: Unable To Void,Bleed Primary Care Physician: Kori Parmar D.O. History of Present Illness Source: patient, clinic records, hospital records Mr Hallman is an 81 year old male with extensive smoking history and BPH presents with gross hematuria in his kyle catheter for 2 days. He has been having urinary problems over the last 2 weeks starting with being urinary urgency and dysuria. He was unable to see his urologist so came to the ER on November 09 and was noted to be in urinary retention. A kyle catheter was inserted and he was discharged with Outpatient urology follow up. UA just showed glucose and no blood at that visit, urine culture was negative. His catheter was removed at his urologist office on November 15 but he was unable to pass urine therefore came back to the ER the following day and was again in urinary retention and catheterized. He was followed up by his PCP and placed on Bactrim since 16 November. Today he felt like his bladder was filling up despite the kyle catheter, phoned his urologist and was advised to come to the ER. This is on a background of BPH for 12 years. He had a cystoscopy 12 years ago his he reports was normal. He also reports previous negative prostate biopsies but this was many years ago. In the ER his vital signs and anemia have been stable. He denies any chest pain , dizziness, shortness of breath on exertion (more so than his chronic problems related to his heart) or vision disturbance. He denies any fever, chills or acute back pain. CT A/P showed enlarged prostate and presumed hemorrhage within the bladder, mild bladder wall thickening with several small bladder diverticula. He had a triple lumen urinary catheter placed and has been passing clots. Case was discussed by the ER doctor with urology who advised for inpatient admission under medicine. Past Medical/Surgical History Medical Problems: (1) Anemia Status: Chronic (2) Angina Status: Chronic (3) Benign hypertension Status: Chronic (4) Cellulitis Status: Chronic (5) Coronary artery bypass grafting Status: Resolved (6) Diabetes mellitus Status: Chronic (7) Hyperlipidemia Status: Chronic (8) Left ventricular diastolic dysfunction Status: Chronic (9) Myocardial infarction Status: Chronic (10) Obesity Status: Chronic (11) Osteoarthritis Status: Chronic (12) REFLUX ESOPHAGITIS Status: Chronic Family History Diabetes mellitus FH: prostate cancer FHx: colon cancer Hypertension Social History Smoking Status: Former Smoker (120 pack-years, quit in ) Smokeless Tobacco Use: No Alcohol Use: none Drug Use: none Marital Status: Housing status: lives with family 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) Immunizations History of Influenza Vaccine: No History of Tetanus Vaccine?: Unknown History of Pneumococcal: Yes Pneumococcal Date: Apr 26, 2004 History of Hepatitis B Vaccine: No Multi-Drug Resistant Organisms History of MDRO: No Allergies Coded Allergies: Adhesives (Verified Allergy, Unknown, DRAPES TORE PT'S SKIN OFF, 11/16/16) Bee Venom (Verified Allergy, Unknown, SWELLING, 11/16/16) Diclofenac (Verified Allergy, Unknown, 11/16/16) Naproxen (Verified Allergy, Unknown, 11/16/16) Amoxicillin (Verified Adverse Reaction, Unknown, CAUSES DIARRHEA, 11/16/16) Celecoxib (Verified Adverse Reaction, Unknown, gi bleed, 11/16/16) Home Medications Scheduled Alfuzosin Hcl (Uroxatral), 10 MG PO DAILY Aspirin (Aspirin Ec), 81 MG PO DAILY Atenolol (Atenolol), 50 MG PO QAM Atorvastatin (Atorvastatin Calcium), 40 MG PO HS Bumetanide (Bumetanide), 2 MG PO DAILY Calcium Carbonate (Antacid) (Antacid), 250 MG PO BID Clopidogrel (Plavix), 75 MG PO UD Dutasteride (Avodart), 0.5 MG PO QAM Esomeprazole Magnesium (Nexium), 40 MG PO QPM Glimepiride (Glimepiride), 2 MG PO BID Cdzbhsdwqao-Oparnganlzb-Nef C- (Glucosamine 1500 Complex), 2 CAP PO DAILY Hydrochlorothiazide (Hydrochlorothiazide), 25 MG PO QAM Isosorbide Mononitrate Ext Rel (Imdur Ext Rel), 120 MG PO QPM Losartan Potassium (Cozaar), 100 MG PO QAM Metformin Hcl (Glucophage), 1,000 MG PO BID Metformin Hcl (Glucophage), 500 MG PO WITH LUNCH Multivitamin (Multivitamin), 1 TAB PO QAM Niacin (Niacin), 1,000 MG PO QPM Oxycodone HCl (Oxycodone HCl ER), 10 MG PO BID Potassium Chloride (Potassium Chloride Er), 10 MEQ PO DAILY Saw [place] (Serenoa [place]ens) (Saw [place]), 450 MG PO DAILY Sulfamethoxazole-Trimethoprim (Bactrim Ds 800MG/160MG), 1 TAB PO BID Scheduled PRN Nitroglycerin (Nitrostat), 0.4 MG UT UD PRN for Chest Pain Review of Systems Constitutional: No chills, No fever Physical Exam Vital Signs Date Time Temp Pulse Resp B/P Pulse Ox O2 Delivery O2 Flow Rate FiO2 11/20/16 19:39 58 11/20/16 19:36 58 18 136/72 95 Room Air 11/20/16 17:33 36.8 66 18 160/74 95 Room Air General Appearance: WD/WN, no apparent distress Head: normocephalic, atraumatic Eyes: EOMI, sclerae normal Neck: supple, no JVD, trachea midline, + pertinent finding (large neck) Respiratory/Chest: chest non-tender, lungs clear, normal breath sounds, no respiratory distress, no accessory muscle use Cardiovascular: regular rate, rhythm, no murmur, normal peripheral pulses Abdomen/GI: normal bowel sounds, non tender, soft Genitourinary - Male: + pertinent finding (gross hematuria present in kyle catheter bag) Back: no CVA tenderness Extremities/Musculoskelatal: no calf tenderness, normal capillary refill, + pedal edema (L > R chronic s/p CABG saphenous vein graft and TKA) Neurologic/Psych: no motor/sensory deficits (grossly moving all 4 limbs, RLE movement more difficult secondary to edema) Skin: normal color, warm/dry, no rash Diagnostics Laboratory Results Results Past 24 Hours Test 11/20/16 18:30 11/20/16 18:35 Range/Units Activated Partial Thromboplast Time 30.1 21.0-31.0 SECONDS Partial Thromboplastin Ratio 1.2 White Blood Count 6.53 4.8-10.8 K/uL Red Blood Count 3.78 4.7-6.1 M/uL Hemoglobin 11.7 14.0-18.0 g/dL Hematocrit 35.5 42-52 % Mean Corpuscular Volume 93.9 80-100 fL Mean Corpuscular Hemoglobin 31.0 25-34 pg Mean Corpuscular Hemoglobin Concent 33.0 32-36 g/dl Platelet Count 244 130-400 K/uL Mean Platelet Volume 10.4 7.4-10.4 fL Neutrophils (%) (Auto) 59.2 % Lymphocytes (%) (Auto) 30.2 % Monocytes (%) (Auto) 6.3 % Eosinophils (%) (Auto) 3.2 % Basophils (%) (Auto) 0.8 % Neutrophils # (Auto) 3.87 1.4-6.5 K/uL Lymphocytes # (Auto) 1.97 1.2-3.4 K/uL Monocytes # (Auto) 0.41 0.11-0.59 K/uL Eosinophils # (Auto) 0.21 0-0.5 K/uL Basophils # (Auto) 0.05 0-0.2 K/uL RDW Standard Deviation 47.0 36.4-46.3 fL RDW Coefficient of Variation 13.7 11.5-14.5 % Immature Granulocyte % (Auto) 0.3 % Immature Granulocyte # (Auto) 0.02 0.00-0.02 K/uL Prothrombin Time 10.8 9.0-12.0 SECONDS Prothromb Time International Ratio 1.0 0.9-1.1 Sodium Level 139 136-145 mmol/L Potassium Level 4.3 3.5-5.1 mmol/L Chloride Level 101 98-107 mmol/L Carbon Dioxide Level 30 21-32 mmol/L Anion Gap 8.0 3-11 mmol/L Blood Urea Nitrogen 32 7-18 mg/dl Creatinine 1.50 0.60-1.40 mg/dl Est Creatinine Clear Calc Drug Dose 50.3 ml/min Estimated GFR () 49.5 Estimated GFR (Non- 42.7 BUN/Creatinine Ratio 21.1 10-20 Random Glucose 162 70-99 mg/dl Calcium Level 9.5 8.5-10.1 mg/dl Total Bilirubin 0.4 0.2-1 mg/dl Direct Bilirubin 0.1 0-0.2 mg/dl Aspartate Amino Transf (AST/SGOT) 20 15-37 U/L Alanine Aminotransferase (ALT/SGPT) 30 12-78 U/L Alkaline Phosphatase 80 45-117 U/L Total Protein 7.2 6.4-8.2 gm/dl Albumin 3.5 3.4-5.0 gm/dl Lipase 152 73-393 U/L Diagnostic Radiology CT SCAN OF THE ABDOMEN AND PELVIS WITHOUT CONTRAST CLINICAL HISTORY: Hematuria. Inability to void. COMPARISON STUDY: No previous studies for comparison. TECHNIQUE: CT scan of the abdomen and pelvis was performed from the lung bases to the proximal femurs. Images are reviewed in the axial, sagittal, and coronal planes. IV contrast was not administered for this examination. CT DOSE: 1903.48 mGy.cm FINDINGS: Lower chest: There are mild basilar atelectatic changes. There is a small hiatal hernia. Liver: There is a 2 cm left lobe hypodensity, likely representing a cyst. Gallbladder: Unremarkable. Spleen: Normal in size and attenuation. Pancreas: Unremarkable. Adrenal glands: There is minor nodular thickening of the left adrenal gland. Kidneys: No renal, ureteral, or bladder calculi are visualized. There is a 3 cm upper pole right renal cyst. Bowel: There are no transition zones to indicate bowel obstruction. There is extensive colonic diverticulosis. There are no acute peridiverticular inflammatory changes present. There are no findings to indicate acute appendicitis. Peritoneum: There is no intraperitoneal free air or abdominal ascites. There is a small fat-containing umbilical hernia. There multiple additional fat-containing upper abdominal ventral hernias. Vasculature: The abdominal aorta is normal in course and caliber. Adenopathy: None. Pelvic viscera: There is indwelling Kyle catheter present. The prostate is enlarged measuring 5.9 cm transversely. There is air within the bladder, likely iatrogenic. There is increased density within the bladder, likely are presenting hemorrhage. There is mild bladder wall thickening. Several small diverticula are suspected. Skeletal structures: There are postsurgical changes of a total right hip arthroplasty. There are moderately advanced multilevel degenerative changes present within the spine area there is epidural gas at the L5-S1 level, likely secondary to degenerative disc disease/disc herniation. IMPRESSION: 1. No evidence of bowel obstruction. No evidence of free air 2. Pandiverticulosis. No evidence of acute diverticulitis 3. Multiple fat-containing ventral hernias 4. Enlarged prostate 5. Presumed hemorrhage within the bladder. Mild bladder wall thickening with several small bladder diverticula. Electronically signed by: Jimmy Catalan M.D. 11/20/2016 6:55 PM Dictated Date/Time: 11/20/2016 6:48 PM Impression Assessment and Plan 81 year old male with gross hematuria after having a kyle catheter inserted Gross hematuria - most likely traumatic from catheter insertion vs. hemorrhagic cystitis, vs. diverticuli bleed vs bladder ca (given smoking Hx) - currently appears hemodynamically stable and anemia at baseline but will admit to telemetry given previous heart history - hold aspirin and plavix - switch bactrim to ciprofloxacin given extent of clots therefore has a medium for infection - UA + micro + culture - continuous irrigation of triple lumen overnight - NPO after midnight with IVF in case cystoscopy needed in morning. - Consult urology to see in morning BPH - Continue alfuzosin and saw carlton Coronary artery disease - holding ASA and plavix secondary to gross hematuria, CABG in ' therefore he is far enough out from his operation at this point to stop in the short term - Continue imdur at night as gets angina otherwise - Continue atenolol and losartan - Continue atorvastatin - hold calcium supplementation Hypertension - Continue outpatient medications: atenolol, HZCT, losartan, bumex Type 2 diabetes - stop outpatient medications - ACHS BSG while eating, Q6H while not eating - Insulin sliding scale written VTE Prophylaxis - chemical contraindicated given gross hematuria - SCDs and ENID ordered Code - Discussed with patient and his and he wishes to be for full resuscitation Disposition - admit to telemetry given heart history and potential for worsening anemia given ongoing bleeding Level of Care Telemetry Resuscitation Status FULL RESUSCITATION VTE Prophylaxis VTE Risk Assessment Done? Y/N: Yes Risk Level: Moderate Given or contraindicated: SCD's, Contraindicated Resident Tracking Resident Involvement: Resident Care Provided Care Provided: Adult [facility] Medicine Assessment and Plan Attending Addendum: I have physically seen and examined this patient, have directed their medical care, have supervised the medical residents activities, and agree with the H&P as noted above, with the following changes: NONE
[2016-11-20] MEDS ORDERED: SULFAMETHOXAZOLE/TRIMETHOPRIM DS 800/160MG TAB PO SCH (21:00)
[2016-11-20] MEDS: INSULIN HUMAN REGULAR SC SCH (21:00)
[2016-11-20] MEDS ORDERED: CALCIUM CARBONATE 500 MG CHEWABLE PO SCH (21:00)
[2016-11-20] MEDS ORDERED: SULF800T23 PO (21:14)
[2016-11-20 21:34] VITALS: BP 144/68; PULSE 70; TEMP 37; O2SAT 92; Ht 175.3 cm; Wt 128.6 kg
[2016-11-20] MEDS: ATORVASTATIN 40 MG TAB PO SCH (22:02)
[2016-11-20] MEDS: CIPROFLOXACIN / D5W 400 MG in PREMIXED IN D5W 200 ML IV SCH (22:08)
[2016-11-20] MEDS: SODIUM CHLORIDE 0.9% 1000ML 1,000 ML IV SCH (22:08)
[2016-11-20] MEDS: OXYCODONE HCL 10 MG TABCR (OXYCONTIN) PO SCH (22:08)
[2016-11-20 23:04] VITALS: BP 108/62; PULSE 59; TEMP 36.7; O2SAT 92
[2016-11-20 23:59] VITALS: O2SAT 92
[2016-11-21] VITALS (9 sets, daily range): BP systolic 93–166; BP diastolic 52–88; PULSE 51–61; TEMP 36.2–36.7; O2SAT 91–96
[2016-11-21 06:42] LABS: HEMATOCRIT 32.3 % (42-52)
[2016-11-21] MEDS: INSULIN HUMAN REGULAR SC SCH ×4 (07:00→20:39)
[2016-11-21 07:17] LABS: BUN/CREATININE RATIO 21.9 (10-20); CALCIUM 8.8 mg/dl (8.5-10.1); CREATININE 1.3 mg/dl (0.60-1.40); POTASSIUM 3.9 mmol/L (3.5-5.1)
[2016-11-21] MEDS: LOSARTAN POTASSIUM 50 MG TAB PO SCH (07:49)
[2016-11-21] MEDS: OXYCODONE HCL 10 MG TABCR (OXYCONTIN) PO SCH ×2 (07:56→20:39)
[2016-11-21] MEDS ORDERED: HYDROmorphone INJ 1 MG/ML SYR ONE (08:05)
[2016-11-21] MEDS: POTASSIUM CHLORIDE 20 MEQ TABCR PO SCH (08:07)
[2016-11-21] MEDS: PANTOprazole SOD 40 MG TAB PO SCH (08:07)
[2016-11-21] MEDS: BUMETANIDE 1 MG TAB PO SCH (08:08)
[2016-11-21] MEDS: ALFUZosin TAB 10 MG TAB PO SCH (08:08)
[2016-11-21] MEDS: MULTIVITAMIN TAB PO SCH (08:08)
[2016-11-21] MEDS ORDERED: LIDOCAINE HCL 2% JELLY 30 ML TUBE EXT PRN (08:30)
--- NOTE | 2016-11-21 08:44 | Urology Consultation ---
History General Date of Service: November 21, 2016. Chief Complaint: gross hematuria Primary Care Physician: Kori Parmar D.O. Pt seen a urologist before?: Yes (Dr. Shaw) If yes, why?: BPH History of Present Illness 81 yo male with a hx of BPH and UR presents to [facility] with c/o gross hematuria that started 2 days ago. Initially developed UR on 11-09, and have kyle catheter placed by the ED. Attempted TOV in our office on 11-15, but the pt again developed retention, and returned to the ED on 11-16 to have kyle replaced. He reports developing hematuria with clot retention of the catheter yesterday, which brought him to the ED. He has a long hx of BPH for which he has been on Avodart and Uroxatral for years. Sees Dr. Shaw for this issue. H&H this morning is 10.4 and 32.3 dropped slightly from 11.7 and 35.5 on admission. Cr has improved to 1.3 from 1.[address] scan showing possible clot in the bladder. 20Fr 3-way kyle catheter has been placed, and CBI initiated. Per RN, kyle irrigated overnight for clot. Previously on ASA and Plavix, which has been stopped this admission d/t hematuria. Imaging Imaging: CT Laboratory Last 24 Hours Test 11/20/16 18:30 11/20/16 18:35 11/21/16 06:18 11/21/16 06:24 Activated Partial Thromboplast Time 30.1 SECONDS Partial Thromboplastin Ratio 1.2 White Blood Count 6.53 K/uL Red Blood Count 3.78 M/uL Hemoglobin 11.7 g/dL 10.4 g/dL Hematocrit 35.5 % 32.3 % Mean Corpuscular Volume 93.9 fL Mean Corpuscular Hemoglobin 31.0 pg Mean Corpuscular Hemoglobin Concent 33.0 g/dl Platelet Count 244 K/uL Mean Platelet Volume 10.4 fL Neutrophils (%) (Auto) 59.2 % Lymphocytes (%) (Auto) 30.2 % Monocytes (%) (Auto) 6.3 % Eosinophils (%) (Auto) 3.2 % Basophils (%) (Auto) 0.8 % Neutrophils # (Auto) 3.87 K/uL Lymphocytes # (Auto) 1.97 K/uL Monocytes # (Auto) 0.41 K/uL Eosinophils # (Auto) 0.21 K/uL Basophils # (Auto) 0.05 K/uL RDW Standard Deviation 47.0 fL RDW Coefficient of Variation 13.7 % Immature Granulocyte % (Auto) 0.3 % Immature Granulocyte # (Auto) 0.02 K/uL Prothrombin Time 10.8 SECONDS Prothromb Time International Ratio 1.0 Sodium Level 139 mmol/L 141 mmol/L Potassium Level 4.3 mmol/L 3.9 mmol/L Chloride Level 101 mmol/L 103 mmol/L Carbon Dioxide Level 30 mmol/L 31 mmol/L Anion Gap 8.0 mmol/L 7.0 mmol/L Blood Urea Nitrogen 32 mg/dl 28 mg/dl Creatinine 1.50 mg/dl 1.30 mg/dl Est Creatinine Clear Calc Drug Dose 50.3 ml/min 58.2 ml/min Estimated GFR () 49.5 58.9 Estimated GFR (Non- 42.7 50.8 BUN/Creatinine Ratio 21.1 21.9 Random Glucose 162 mg/dl 114 mg/dl Calcium Level 9.5 mg/dl 8.8 mg/dl Total Bilirubin 0.4 mg/dl Direct Bilirubin 0.1 mg/dl Aspartate Amino Transf (AST/SGOT) 20 U/L Alanine Aminotransferase (ALT/SGPT) 30 U/L Alkaline Phosphatase 80 U/L Troponin I < 0.015 ng/ml Total Protein 7.2 gm/dl Albumin 3.5 gm/dl Lipase 152 U/L Bedside Glucose 106 mg/dl Problem List Medical Problems: (1) Cellulitis of left lower leg Status: Acute (2) Kyle catheter problem Status: Acute (3) Urinary retention Status: Acute (4) Urinary retention Status: Acute (5) Wound infection Status: Acute Past History angina, BPH, coronary artery disease, diabetes, high cholesterol, myocardial infarction, other (morbid obesity, reflux esophagitis, cellulitis) Past Surgical History: angioplasty without stent (coronary artery), coronary bypass surgery, orthopedic surgery (foot surgery), THR, TKR Family History Diabetes mellitus FH: prostate cancer FHx: colon cancer Hypertension Social History Hx Tobacco Use In Past Year?: No Smoking: non-smoker, other (quit 1970s-120 pack-years) Alcohol: never Drug use: none Marital status: Housing status: lives with family 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) Immunizations History of Influenza Vaccine: No History of Tetanus Vaccine?: Unknown History of Pneumococcal: Yes Pneumococcal Date: Apr 26, 2004 History of Hepatitis B Vaccine: No History of MDRO No Allergies Coded Allergies: Adhesives (Verified Allergy, Unknown, DRAPES TORE PT'S SKIN OFF, 11/16/16) Bee Venom (Verified Allergy, Unknown, SWELLING, 11/16/16) Diclofenac (Verified Allergy, Unknown, 11/16/16) Naproxen (Verified Allergy, Unknown, 11/16/16) Amoxicillin (Verified Adverse Reaction, Unknown, CAUSES DIARRHEA, 11/16/16) Celecoxib (Verified Adverse Reaction, Unknown, gi bleed, 11/16/16) Medications Home Medications: Home Meds and Scripts Medications Dose Route/Sig Max Daily Dose Days Date Category Dose Instructions Bumetanide 1 Mg Tab 2 Mg PO DAILY 11/20/16 Reported Hydrochlorothiazide 25 Mg Tab 25 Mg PO QAM 11/20/16 Reported Imdur Ext Rel (Isosorbide Mononitrate) 120 Mg Ertab 120 Mg PO QPM 11/20/16 Reported Glimepiride 2 Mg Tab 2 Mg PO BID 11/20/16 Reported Atorvastatin Calcium (Atorvastatin) 40 Mg Tab 40 Mg PO HS 11/20/16 Reported Atenolol 50 Mg Tab 50 Mg PO QAM 11/20/16 Reported Potassium Chloride Er (Potassium Chloride) 10 Meq Tab 10 Meq PO DAILY 11/20/16 Reported Cozaar (Losartan Potassium) 100 Mg Tab 100 Mg PO QAM 11/20/16 Reported Oxycodone HCl ER (Oxycodone HCl) 10 Mg Tab 10 Mg PO BID 11/20/16 Reported Bactrim Ds 800MG/160MG (Sulfamethoxazole-Trimethoprim) 1 Tab Tab 1 Tab PO BID 10 11/16/16 Reported PRESCRIBED 11/15/16, TAKE DIRECTED FOR 10 DAYS Glucophage (Metformin Hcl) 1,000 Mg Tab 500 Mg PO WITH LUNCH 11/09/16 Reported TAKE HALF A TABLET (500 MG) DAILY WITH LUNCH Saw Sussex (Saw Sussex (Serenoa Repens)) 450 Mg Cap 450 Mg PO DAILY 11/09/16 Reported Glucosamine 1500 Complex (Ceyzqospcol-Toqryfctgcd-Hcj C-) 1 Cap Cap 2 Cap PO DAILY 11/09/16 Reported Antacid (Calcium Carbonate (Antacid)) 500 Mg Chw 250 Mg PO BID 11/09/16 Reported Aspirin Ec (Aspirin) 81 Mg Tab 81 Mg PO DAILY 11/09/16 Reported Uroxatral (Alfuzosin HCl) 10 Mg Tab 10 Mg PO DAILY 05/04/16 Reported Plavix (Clopidogrel Bisulfate) 75 Mg Tab 75 Mg PO UD 05/04/16 Reported ON 11/21/2016 HOLD THIS MEDICATION UNTIL OTHERWISE DIRECTED TO TAKE BY DOCTOR Nitrostat (Nitroglycerin) 0.4 Mg Sub 0.4 Mg UT UD PRN 11/24/12 Reported Niacin 500 Mg Tab 1,000 Mg PO QPM 11/24/12 Reported Avodart (Dutasteride) 0.5 Mg Cap 0.5 Mg PO QAM 11/24/12 Reported Glucophage (Metformin Hcl) 1,000 Mg Tab 1,000 Mg PO BID 11/24/12 Reported TAKE THIS MEDICATION WITH MORNING AND EVENING MEALS Multivitamin (Multivitamins) Tab 1 Tab PO QAM 11/22/07 Reported Nexium (Esomeprazole Magnesium) 40 Mg Capcr 40 Mg PO QPM 03/27/06 Reported Inpatient Medications: Current Inpatient Medications Medications (Trade) Dose Ordered Sig/Jez Route Start Time Stop Time Status Last Admin Dose Admin Acetaminophen (Tylenol Tab) 650 mg Q4H PRN PO 11/20/16 20:15 12/20/16 20:14 Ondansetron HCl (Zofran Inj) 4 mg Q6H PRN IV 11/20/16 20:15 12/20/16 20:14 Alfuzosin HCl (Uroxatral Tab) 10 mg DAILY PO 11/21/16 09:00 12/21/16 08:59 11/21/16 08:08 10 MG Atenolol (Tenormin Tab) 50 mg QAM PO 11/21/16 09:00 12/21/16 08:59 11/21/16 07:48 50 MG Atorvastatin Calcium (Lipitor Tab) 40 mg HS PO 11/20/16 21:00 12/20/16 20:59 Bumetanide (Bumex Tab) 2 mg DAILY PO 11/21/16 09:00 12/21/16 08:59 11/21/16 08:08 2 MG Isosorbide Mononitrate (Imdur Ext Rel Tab) 120 mg HS PO 11/21/16 21:00 12/21/16 20:59 Losartan Potassium (coZAAR TAB) 100 mg QAM PO 11/21/16 09:00 12/21/16 08:59 11/21/16 07:49 100 MG Multivitamins (Multivitamin Tab) 1 tab QAM PO 11/21/16 09:00 12/21/16 08:59 11/21/16 08:08 1 TAB Nitroglycerin (Nitrostat Tab) 0.4 mg UD PRN UT 11/20/16 20:15 12/20/16 20:14 Oxycodone HCl (Oxycontin Tab) 10 mg BID PO 11/20/16 21:00 12/04/16 20:59 11/21/16 07:56 10 MG Pantoprazole Sodium (Protonix Tab) 40 mg QAM PO 11/21/16 09:00 12/21/16 08:59 11/21/16 08:07 40 MG Potassium Chloride (Klor-Con Tab) 20 meq QAM PO 11/21/16 09:00 12/21/16 08:59 11/21/16 08:07 20 MEQ Insulin Human Regular (novoLIN-R) SLIDING SCALE IF C... ACHS SC 11/20/16 21:00 12/20/16 20:59 Glucose (Glucose 40% Gel) 15-30 GRAMS 15 GRAMS... UD PRN PO 11/20/16 20:15 12/20/16 20:14 Glucose (Glucose Chew Tab) 4-8 Tablets 4 Tabl... UD PRN PO 11/20/16 20:15 12/20/16 20:14 Dextrose (Dextrose 50% 50ML Syringe) 25-50ML OF 50% DW IV FOR... UD PRN IV 11/20/16 20:15 12/20/16 20:14 Glucagon 1 mg 1 mg UD PRN SQ 11/20/16 20:15 12/20/16 20:14 Ciprofloxacin/ Dextrose 400 mg/ Prmx 200 ml @ 100 mls/hr Q12H IV 11/20/16 22:00 11/30/16 21:59 11/20/16 22:08 100 MLS/HR Sodium Chloride (Nss 1000ml) 1,000 ml @ 80 mls/hr [id number] IV 11/20/16 21:45 12/20/16 21:44 11/20/16 22:08 80 MLS/HR Finasteride (Proscar Tab) 5 mg QAM PO 11/21/16 09:00 12/21/16 08:59 Review of Systems Review of Systems Constitutional: No chills, No fever Eyes: No double vision Neurological: No dizzy Endocrine: No excessive thirst Gastrointestinal: No abdominal pain, No nausea, No vomiting Cardiovascular: No chest pain Respiratory: No shortness of breath Skin: No rash Musculoskeletal: + arthritis, + joint pain Blood / Lymphatic: + bleed easily Male : + blood in urine, + urinary retention Physical Exam Vital Signs: Vital Signs Past 12 Hours Date Time Temp Pulse Resp B/P Pulse Ox O2 Delivery O2 Flow Rate FiO2 11/21/16 07:14 36.2 61 19 166/88 96 Room Air 11/21/16 04:00 93 Room Air 11/21/16 03:46 36.4 61 18 123/71 93 Room Air 11/20/16 23:59 92 Room Air 11/20/16 23:04 36.7 59 20 108/62 92 Room Air 11/20/16 21:34 37.0 70 18 144/68 92 Room Air 11/20/16 20:43 36.8 61 18 141/77 95 Physical Exam: General Appearance: no apparent distress, + obese Eyes: bilateral eyes normal inspection ENT: hearing grossly normal Neck: no JVD Respiratory/Chest: no respiratory distress, no accessory muscle use Cardiovascular: no JVD Extremities: normal inspection Neurologic/Psychiatric: alert, normal mood/affect, oriented x 3 Skin: normal color Assessment & Plan Assessment & Plan A/P: Gross hematuria, urinary retention, BPH Attempted to irrigate kyle catheter with 700ml sterile NSS this morning. I was able to remove some very small clot and 500ml return of instilled sterile NSS. CBI then restarted, and draining light pink urine. Continue CBI and observation for now. Will have the nursing staff hand irrigate the kyle catheter qshift with 60- 120ml sterile NSS. Remain off Plavix and ASA until hematuria resolved. Continue to monitor H&H. He will remain NPO until assessed by Dr. Martinez later this morning. Continue Uroxatral. Will start him on finasteride while inpatient as Avodart not available per hospital formulary. Thanks for the consult. Will continue to follow along with primary service at this time. Pt seen at 1230 pm and urine pink on slow cbi . Pt has been on avodart for years . Last psa was 2.34 in 2002. Ordered psa . Think pt will need to be off plavix until a cysto to r/o tumor in office bunless worse here . Will keep npo but if not worse will feed is evening . Hernandez Martinez
[2016-11-21] MEDS ORDERED: HYDROCHLOROTHIAZIDE 25 MG TAB PO SCH (09:00)
[2016-11-21] MEDS: FINASTERIDE 5 MG TAB PO SCH (09:49)
[2016-11-21] MEDS: CIPROFLOXACIN / D5W 400 MG in PREMIXED IN D5W 200 ML IV SCH ×2 (09:49→20:39)
[2016-11-21] MEDS: SODIUM CHLORIDE 0.9% 1000ML 1,000 ML IV SCH ×2 (09:50→20:45)
--- NOTE | 2016-11-21 13:20 | Family Medicine Progress Note ---
Progress Note Date of Service November 21, 2016. Subjective Pt evaluation today including: conversation w/ patient, physical exam, chart review, lab review, review of studies Pain: 0/10 PO Intake: WNL Voiding: kyle catheter in place Patient states that his lower abdominal pain has resolved and the only time the patient gets any sort of pain is if the irrigation is clogged Hematuria is improving Constitutional: No fever Eyes: No worsening of vision ENT: No hearing loss Respiratory: No cough, No dyspnea on exertion, No shortness of breath, No sputum, No wheezing Cardiovascular: No chest pain Abdomen: No constipation, No diarrhea, No nausea, No pain, No vomiting Musculoskeletal: + swelling (bilat left > right BL), No joint pain, No muscle pain Male : + hematuria, No dysuria Neurologic: No balance problems, No weakness Psychiatric: No anxiety Endo: No fatigue Skin: No rash Medications Medications Administered Medications (Trade) Dose Ordered Sig/Jez Route Start Time Stop Time Status Last Admin Dose Admin Glimepiride (Amaryl Tab) 2 mg NOW STAT PO 11/20/16 19:24 11/20/16 19:29 DC 11/20/16 20:03 2 MG Atorvastatin Calcium (Lipitor Tab) 40 mg NOW STAT PO 11/20/16 19:24 11/20/16 19:29 DC 11/20/16 20:03 40 MG Oxycodone HCl (Roxicodone Immediate Rel Tab) 10 mg NOW STAT PO 11/20/16 19:24 11/20/16 19:29 DC 11/20/16 20:02 10 MG Trimethoprim/ Sulfamethoxazole (Septra Ds 800/ 160MG Tab) 1 tab NOW STAT PO 11/20/16 19:24 11/20/16 19:29 DC 11/20/16 20:00 1 TAB Calcium Carbonate (Tums Chew Tab) 500 mg NOW STAT PO 11/20/16 19:24 11/20/16 19:29 DC 11/20/16 20:05 500 MG Niacin (Niacin Tab) 500 mg NOW STAT PO 11/20/16 19:24 11/20/16 19:29 DC 11/20/16 20:04 500 MG Metformin HCl (Glucophage Tab) 1,000 mg NOW STAT PO 11/20/16 19:24 11/20/16 19:29 DC 11/20/16 20:06 1,000 MG Ondansetron HCl (Zofran Inj) 4 mg Q6H PRN IV 11/20/16 20:15 12/20/16 20:14 11/21/16 09:53 4 MG Alfuzosin HCl (Uroxatral Tab) 10 mg DAILY PO 11/21/16 09:00 12/21/16 08:59 11/21/16 08:08 10 MG Atenolol (Tenormin Tab) 50 mg QAM PO 11/21/16 09:00 12/21/16 08:59 11/21/16 07:48 50 MG Bumetanide (Bumex Tab) 2 mg DAILY PO 11/21/16 09:00 12/21/16 08:59 11/21/16 08:08 2 MG Losartan Potassium (coZAAR TAB) 100 mg QAM PO 11/21/16 09:00 12/21/16 08:59 11/21/16 07:49 100 MG Multivitamins (Multivitamin Tab) 1 tab QAM PO 11/21/16 09:00 12/21/16 08:59 11/21/16 08:08 1 TAB Oxycodone HCl (Oxycontin Tab) 10 mg BID PO 11/20/16 21:00 12/04/16 20:59 11/21/16 07:56 10 MG Pantoprazole Sodium (Protonix Tab) 40 mg QAM PO 11/21/16 09:00 12/21/16 08:59 11/21/16 08:07 40 MG Potassium Chloride (Klor-Con Tab) 20 meq QAM PO 11/21/16 09:00 12/21/16 08:59 11/21/16 08:07 20 MEQ Insulin Human Regular (novoLIN-R) SLIDING SCALE IF C... ACHS SC 11/20/16 21:00 12/20/16 20:59 11/21/16 12:32 2 UNITS Miscellaneous Information (Dc All Previously Ordered Diabetes Meds) 1 ea ONE ONCE N/A 11/20/16 20:15 11/20/16 21:30 DC 11/20/16 23:57 1 EA Isosorbide Mononitrate 120 mg 120 mg NOW STAT PO 11/20/16 20:16 11/20/16 20:17 DC 11/20/16 20:41 120 MG Ciprofloxacin/ Dextrose 400 mg/ Prmx 200 ml @ 100 mls/hr Q12H IV 11/20/16 22:00 11/30/16 21:59 11/21/16 09:49 100 MLS/HR Sodium Chloride (Nss 1000ml) 1,000 ml @ 80 mls/hr [id number] IV 11/20/16 21:45 12/20/16 21:44 11/21/16 09:50 80 MLS/HR Finasteride (Proscar Tab) 5 mg QAM PO 11/21/16 09:00 12/21/16 08:59 11/21/16 09:49 5 MG Hydromorphone HCl (Dilaudid Inj) 1 mg STK-MED ONCE .ROUTE 11/21/16 08:05 11/21/16 08:06 DC 11/21/16 08:09 1 MG Objective Vital Signs Date Time Temp Pulse Resp B/P Pulse Ox O2 Delivery O2 Flow Rate FiO2 11/21/16 12:29 36.5 55 18 94/57 92 Room Air 11/21/16 11:27 36.7 51 19 91 11/21/16 10:32 36.7 51 19 93/58 91 Room Air 11/21/16 08:00 Room Air 11/21/16 07:14 36.2 61 19 166/88 96 Room Air 11/21/16 04:00 93 Room Air 11/21/16 03:46 36.4 61 18 123/71 93 Room Air 11/20/16 23:59 92 Room Air 11/20/16 23:04 36.7 59 20 108/62 92 Room Air 11/20/16 21:34 37.0 70 18 144/68 92 Room Air 11/20/16 20:43 36.8 61 18 141/77 95 11/20/16 20:25 61 18 141/77 95 11/20/16 19:55 60 18 92 11/20/16 19:39 58 11/20/16 19:36 58 18 136/72 95 Room Air 11/20/16 19:34 136/72 11/20/16 17:33 36.8 66 18 160/74 95 Room Air Physical Exam General Appearance: no apparent distress Eyes: normal inspection ENT: normal ENT inspection Neck: supple Respiratory/Chest: normal breath sounds, no respiratory distress, no accessory muscle use Cardiovascular: regular rate, rhythm, no murmur Abdomen: normal bowel sounds, non tender, soft Extremities: normal range of motion, non-tender, + pedal edema (+4 in right LE which is BL for the patient and very mild reythema which is also BL, the left has +1 LE edema which is also BL for the patient ) Neurologic/Psychiatric: alert, normal mood/affect, oriented x 3 Skin: normal color, warm/dry, no rash Lymphatic: no adenopathy Laboratory Results Results Past 24 Hours Test 11/20/16 18:30 11/20/16 18:35 11/21/16 06:18 11/21/16 06:24 Range/Units Activated Partial Thromboplast Time 30.1 21.0-31.0 SECONDS Partial Thromboplastin Ratio 1.2 White Blood Count 6.53 4.8-10.8 K/uL Red Blood Count 3.78 4.7-6.1 M/uL Hemoglobin 11.7 10.4 14.0-18.0 g/dL Hematocrit 35.5 32.3 42-52 % Mean Corpuscular Volume 93.9 80-100 fL Mean Corpuscular Hemoglobin 31.0 25-34 pg Mean Corpuscular Hemoglobin Concent 33.0 32-36 g/dl Platelet Count 244 130-400 K/uL Mean Platelet Volume 10.4 7.4-10.4 fL Neutrophils (%) (Auto) 59.2 % Lymphocytes (%) (Auto) 30.2 % Monocytes (%) (Auto) 6.3 % Eosinophils (%) (Auto) 3.2 % Basophils (%) (Auto) 0.8 % Neutrophils # (Auto) 3.87 1.4-6.5 K/uL Lymphocytes # (Auto) 1.97 1.2-3.4 K/uL Monocytes # (Auto) 0.41 0.11-0.59 K/uL Eosinophils # (Auto) 0.21 0-0.5 K/uL Basophils # (Auto) 0.05 0-0.2 K/uL RDW Standard Deviation 47.0 36.4-46.3 fL RDW Coefficient of Variation 13.7 11.5-14.5 % Immature Granulocyte % (Auto) 0.3 % Immature Granulocyte # (Auto) 0.02 0.00-0.02 K/uL Prothrombin Time 10.8 9.0-12.0 SECONDS Prothromb Time International Ratio 1.0 0.9-1.1 Sodium Level 139 141 136-145 mmol/L Potassium Level 4.3 3.9 3.5-5.1 mmol/L Chloride Level 101 103 98-107 mmol/L Carbon Dioxide Level 30 31 21-32 mmol/L Anion Gap 8.0 7.0 3-11 mmol/L Blood Urea Nitrogen 32 28 7-18 mg/dl Creatinine 1.50 1.30 0.60-1.40 mg/dl Est Creatinine Clear Calc Drug Dose 50.3 58.2 ml/min Estimated GFR () 49.5 58.9 Estimated GFR (Non- 42.7 50.8 BUN/Creatinine Ratio 21.1 21.9 10-20 Random Glucose 162 114 70-99 mg/dl Calcium Level 9.5 8.8 8.5-10.1 mg/dl Total Bilirubin 0.4 0.2-1 mg/dl Direct Bilirubin 0.1 0-0.2 mg/dl Aspartate Amino Transf (AST/SGOT) 20 15-37 U/L Alanine Aminotransferase (ALT/SGPT) 30 12-78 U/L Alkaline Phosphatase 80 45-117 U/L Troponin I < 0.015 0-0.045 ng/ml Total Protein 7.2 6.4-8.2 gm/dl Albumin 3.5 3.4-5.0 gm/dl Lipase 152 73-393 U/L Bedside Glucose 106 70-99 mg/dl Test 11/21/16 11:55 Range/Units Bedside Glucose 193 70-99 mg/dl Assessment and Plan 81 year old male with gross hematuria after having a kyle catheter inserted. Patient has a history of BPH and has requiring catheterizations recently and plan was for an outpt follow up with urology. Gross hematuria - most likely traumatic from catheter insertion vs. hemorrhagic cystitis, vs. diverticuli bleed vs bladder ca - monitor HH q 6 h until hematuria resolves - hold aspirin and plavix - [facility] consult to discuss holding these medications - switch bactrim to ciprofloxacin - UA + micro + culture - continuous irrigation of triple lumen until hematuria resolves - Diet as plan for outpt cystoscopy - Consult urology - appreciate input BPH - Finasteride while inpt Coronary artery disease - holding ASA and plavix secondary to gross hematuria - Continue imdur at night as gets angina otherwise - Continue atenolol and losartan - Continue atorvastatin Hypertension - Continue outpatient medications: atenolol, HZCT, losartan, bumex - slightly hypotensive and constantin, will hold atenolol tomorrow am Type 2 diabetes - hold outpatient medications - ACHS BSG - Insulin sliding scale written VTE Prophylaxis - chemical contraindicated given gross hematuria - SCDs and ENID ordered Code - Discussed with patient and his and he wishes to be for full resuscitation Disposition - transfer to med surg because hemodynamically stable Resident Physician Supervision Note: I interviewed and examined the patient. Discussed with Dr. Anderson and agree with findings and plan as documented in the note. Any exceptions or clarifications are listed here: None Documented By: Maximiliano Lee hematuria no other acute complaints at the time i see him ros otherwise negative except for as above vitals noted nad breathing unlabored urine lama red hematuria - ongoing vigilance, irrigation, urology assistance, otherwise as above Continued [facility] stay due to: other Discharge planning: uncertain
--- NOTE | 2016-11-21 14:33 | CARDIOLOGY CONSULTATION ---
DATE OF CONSULTATION: 11/21/2016 DATE OF CONSULTATION: 11/21/2016. PERTINENT HISTORY: Mr. Hallman was admitted yesterday with gross hematuria. This consultation was ordered to assist in his cardiac management. The patient's recent history began several days ago when he developed urinary retention. A Funk catheter was placed, but then, the patient started to develop a significant hematuria within the catheter. He was sent to the Emergency Room for further care on the day of admission. The patient has a longstanding history of coronary artery disease. He had angioplasty performed in 1989 at [facility]. In 1994, he underwent a 4-vessel bypass procedure which was also performed at [facility]. In approximately 2004, the patient developed an acute coronary syndrome and had a repeat cardiac catheterization performed. These films were evaluated at both [place] and [facility] and the patient was deemed inoperable. He has done well from medical management since that time. He was experiencing nocturnal angina pectoris 2-3 times each week. His long acting nitrate was then changed to at bedtime dosing and his symptoms have resolved completely. He has not requiring a sublingual nitroglycerin in many months. The patient does not exercise routinely. He is able to carry out activities of daily life with the assistance of a wheeled walker. He does not experience exertional anginal pectoris or limiting dyspnea. He further denies syncope, presyncope, PND, orthopnea, palpitations, changes of lower extremity edema, and claudication. Currently, the patient is resting comfortably in bed without complaints. PAST MEDICAL HISTORY: 1. Coronary artery disease. 2. CABG x4 -- 1994. 3. Subsequently deemed inoperative CAD -- 2004. 4. Hypertension. 5. Hypercholesterolemia. 6. Diabetes mellitus. 7. Chronic stable pectoris. 8. BPH. 9. History of polio. 10. History of left foot fusion. 11. Right hip replacement -- 1998. 12. Right TKR -- May 2014. 13. Left TKR -- November 2014. 14. Right breast cyst removal. MEDICATIONS: 1. Atenolol 50 mg daily. 2. Losartan 100 mg per day. 3. Imdur 120 mg per day. 4. Bumex 2 mg daily. 5. Potassium 20 mEq daily. 6. Proscar 5 mg daily. 7. Uroxatral 10 mg daily. 8. Lipitor 40 mg at bedtime. 9. Protonix 40 mg per day. 10. Multivitamin 1 per day. 11. Sliding scale insulin. 12. Aspirin 81 mg daily -- on hold. 13. Plavix 75 mg per day -- on hold. ALLERGIES: 1. ADHESIVES. 2. AMOXICILLIN. 3. CELEBREX. 4. NAPROXEN. 5. DICLOFENAC. 6. BEE VENOM. SOCIAL HISTORY: The patient is and lives with his . 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 Does not use tobacco or alcohol. FAMILY HISTORY: No early coronary artery disease. REVIEW OF SYSTEMS: A 10-point review of systems was negative except for that described above. PHYSICAL EXAMINATION: GENERAL: This is an obese white male lying supine in bed without complaints. VITAL SIGNS: Blood pressure is 100/60 with a regular pulse of 55. Respiratory rate is 18. The patient is afebrile at 36.7 degrees Celsius. Saturation is 91% on room air. HEAD, EYES, EARS, NOSE, AND THROAT EXAMINATION: Negative. NECK: Supple with full carotid upstrokes. There are no carotid bruits. Jugular venous pressure is flat at 90 degrees. There is no thyromegaly. CARDIOVASCULAR EXAMINATION: Reveals a nonpalpable PMI and a regular rhythm with a normal S1 and S2. No S3, S4, or murmurs are noted. LUNGS: Clear without rales, rhonchi, or wheezes. ABDOMEN: Obese without bruits. EXTREMITIES: Reveal intact radial artery pulses bilaterally. 2+ pretibial edema is seen on the left, 1+ on right. LABORATORY DATA: CBC notes hemoglobin of 10.4, hematocrit 32.3, white count 6.5, platelet count 244,000. Electrolytes note a sodium of 141, potassium 3.9, chloride 103, bicarbonate 31, BUN 28, creatinine 1.3, glucose 114. Troponin I level is undetectable at less than 0.015. INR is 1.0. 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 This is unchanged from a tracing done in October 2014. IMPRESSION: Mr. Hallman was admitted with gross hematuria. His aspirin and Plavix were appropriately placed on hold. Would remain off his antiplatelet agents until the etiology of his bleeding is identified. PLAN: 1. Agree with holding aspirin and Plavix. 2. Continue all other cardiac medications as you are. 3. Further recommendations depending on his clinical course.
[2016-11-21] MEDS: ISOSORBIDE MONONITRATE 60 MG TABCR PO SCH (20:40)
[2016-11-21] MEDS: ATORVASTATIN 40 MG TAB PO SCH (20:40)
[2016-11-21 20:41] LABS: MANUAL MICROSCOPIC REQUIRED? NO; REVIEW REQ? NO; URINE APPEARANCE CLEAR (CLEAR); URINE BILIRUBIN NEG (NEG); URINE COLOR RED; URINE EPITHELIAL CELL AUTO 0-5 /lpf (0-5); URINE NITRITE NEG (NEG); URINE PH 5.5 (4.5-7.5); URINE SPECIFIC GRAVITY 1.007 (1.000-1.030); UROBILINOGEN NEG (NEG); ZZURINE CULT IF INDIC CATH NO
[2016-11-21 20:52] LABS: HEMATOCRIT 31.5 % (42-52)
[2016-11-22] VITALS: BP 124/65; PULSE 59; TEMP 36.4; O2SAT 91; O2SAT 94
[2016-11-22] MEDS ORDERED: ZOLPIDEM TARTRATE 5 MG TAB ONE
[2016-11-22] MEDS: INSULIN HUMAN REGULAR SC SCH ×4 (06:30→21:28)
[2016-11-22 07:30] VITALS: BP 154/77; PULSE 57; TEMP 36.7; O2SAT 92
[2016-11-22] MEDS: LOSARTAN POTASSIUM 50 MG TAB PO SCH (07:38)
[2016-11-22] MEDS: MULTIVITAMIN TAB PO SCH (07:38)
[2016-11-22] MEDS: BUMETANIDE 1 MG TAB PO SCH (07:38)
[2016-11-22] MEDS: PANTOprazole SOD 40 MG TAB PO SCH (07:38)
[2016-11-22] MEDS: ALFUZosin TAB 10 MG TAB PO SCH (07:39)
[2016-11-22] MEDS: FINASTERIDE 5 MG TAB PO SCH (07:39)
[2016-11-22] MEDS: POTASSIUM CHLORIDE 20 MEQ TABCR PO SCH (07:39)
[2016-11-22] MEDS: OXYCODONE HCL 10 MG TABCR (OXYCONTIN) PO SCH ×2 (07:42→21:30)
[2016-11-22 07:44] LABS: BASO % 0.4 %; BASO ABS # 0.03 K/uL (0-0.2); COMPLETE YES; EOS % 3.3 %; HEMATOCRIT 31.5 % (42-52); IG% 0.1 %; LYMPH % 26.6 %; LYMPH ABS # 1.87 K/uL (1.2-3.4); MEAN CELL VOLUME 95.7 fL (80-100); MEAN CORPUSCULAR HGB CONC 32.4 g/dl (32-36); MEAN PLATELET VOLUME 10.3 fL (7.4-10.4); NEUT % 59.6 %; PLATELET COUNT 219 K/uL (130-400); RED BLOOD COUNT 3.29 M/uL (4.7-6.1); WHITE BLOOD COUNT 7.02 K/uL (4.8-10.8)
[2016-11-22 08:23] LABS: BUN/CREATININE RATIO 19.2 (10-20); CREATININE 1.3 mg/dl (0.60-1.40); POTASSIUM 4.1 mmol/L (3.5-5.1)
[2016-11-22 08:45] LABS: CALCIUM 8.9 mg/dl (8.5-10.1)
[2016-11-22 08:51] LABS: HEMATOCRIT 32.9 % (42-52)
[2016-11-22] MEDS: CIPROFLOXACIN / D5W 400 MG in PREMIXED IN D5W 200 ML IV SCH (10:11)
--- NOTE | 2016-11-22 11:45 | Family Medicine Progress Note ---
Progress Note Date of Service November 22, 2016. Subjective Pt evaluation today including: conversation w/ patient, physical exam, chart review, lab review Pain: 0/10 PO Intake: NPO Voiding: kyle catheter in place States that he continues to not have recurrence in the lower abdominal pain Anticipating a potential cystoscopy today Constitutional: No fever Eyes: No worsening of vision ENT: No hearing loss Respiratory: No cough, No dyspnea on exertion, No shortness of breath, No sputum, No wheezing Cardiovascular: No chest pain Abdomen: No constipation, No diarrhea, No nausea, No pain, No vomiting Musculoskeletal: + swelling (L>R but baseline), No joint pain, No muscle pain Male : + hematuria, No dysuria Neurologic: No balance problems, No weakness Endo: No fatigue Medications Medications Administered Medications (Trade) Dose Ordered Sig/Jez Route Start Time Stop Time Status Last Admin Dose Admin Glimepiride (Amaryl Tab) 2 mg NOW STAT PO 11/20/16 19:24 11/20/16 19:29 DC 11/20/16 20:03 2 MG Atorvastatin Calcium (Lipitor Tab) 40 mg NOW STAT PO 11/20/16 19:24 11/20/16 19:29 DC 11/20/16 20:03 40 MG Oxycodone HCl (Roxicodone Immediate Rel Tab) 10 mg NOW STAT PO 11/20/16 19:24 11/20/16 19:29 DC 11/20/16 20:02 10 MG Trimethoprim/ Sulfamethoxazole (Septra Ds 800/ 160MG Tab) 1 tab NOW STAT PO 11/20/16 19:24 11/20/16 19:29 DC 11/20/16 20:00 1 TAB Calcium Carbonate (Tums Chew Tab) 500 mg NOW STAT PO 11/20/16 19:24 11/20/16 19:29 DC 11/20/16 20:05 500 MG Niacin (Niacin Tab) 500 mg NOW STAT PO 11/20/16 19:24 11/20/16 19:29 DC 11/20/16 20:04 500 MG Metformin HCl (Glucophage Tab) 1,000 mg NOW STAT PO 11/20/16 19:24 11/20/16 19:29 DC 11/20/16 20:06 1,000 MG Ondansetron HCl (Zofran Inj) 4 mg Q6H PRN IV 11/20/16 20:15 6/15/17 20:14 11/21/16 09:53 4 MG Alfuzosin HCl (Uroxatral Tab) 10 mg DAILY PO 11/21/16 09:00 12/21/16 08:59 11/22/16 07:39 10 MG Atenolol (Tenormin Tab) 50 mg QAM PO 11/21/16 09:00 12/21/16 08:59 11/22/16 07:38 50 MG Atorvastatin Calcium (Lipitor Tab) 40 mg HS PO 11/20/16 21:00 12/20/16 20:59 11/21/16 20:40 40 MG Bumetanide (Bumex Tab) 2 mg DAILY PO 11/21/16 09:00 12/21/16 08:59 11/22/16 07:38 2 MG Isosorbide Mononitrate (Imdur Ext Rel Tab) 120 mg HS PO 11/21/16 21:00 12/21/16 20:59 11/21/16 20:40 120 MG Losartan Potassium (coZAAR TAB) 100 mg QAM PO 11/21/16 09:00 12/21/16 08:59 11/22/16 07:38 100 MG Multivitamins (Multivitamin Tab) 1 tab QAM PO 11/21/16 09:00 12/21/16 08:59 11/22/16 07:38 1 TAB Oxycodone HCl (Oxycontin Tab) 10 mg BID PO 11/20/16 21:00 12/04/16 20:59 11/22/16 07:42 10 MG Pantoprazole Sodium (Protonix Tab) 40 mg QAM PO 11/21/16 09:00 12/21/16 08:59 11/22/16 07:38 40 MG Potassium Chloride (Klor-Con Tab) 20 meq QAM PO 11/21/16 09:00 12/21/16 08:59 11/22/16 07:39 20 MEQ Insulin Human Regular (novoLIN-R) SLIDING SCALE IF C... ACHS SC 11/20/16 21:00 12/20/16 20:59 11/21/16 17:59 2 UNITS Miscellaneous Information (Dc All Previously Ordered Diabetes Meds) 1 ea ONE ONCE N/A 11/20/16 20:15 11/20/16 21:30 DC 11/20/16 23:57 1 EA Isosorbide Mononitrate 120 mg 120 mg NOW STAT PO 11/20/16 20:16 11/20/16 20:17 DC 11/20/16 20:41 120 MG Ciprofloxacin/ Dextrose 400 mg/ Prmx 200 ml @ 100 mls/hr Q12H IV 11/20/16 22:00 11/30/16 21:59 11/22/16 10:11 100 MLS/HR Sodium Chloride (Nss 1000ml) 1,000 ml @ 80 mls/hr [id number] IV 11/20/16 21:45 12/20/16 21:44 11/21/16 20:45 80 MLS/HR Finasteride (Proscar Tab) 5 mg QAM PO 11/21/16 09:00 12/21/16 08:59 11/22/16 07:39 5 MG Hydromorphone HCl (Dilaudid Inj) 1 mg STK-MED ONCE .ROUTE 11/21/16 08:05 11/21/16 08:06 DC 11/21/16 08:09 1 MG Zolpidem Tartrate (Ambien Tab) 5 mg STK-MED ONCE .ROUTE 11/22/16 00:00 11/22/16 00:01 DC 11/22/16 00:26 5 MG Objective Vital Signs Date Time Temp Pulse Resp B/P Pulse Ox O2 Delivery O2 Flow Rate FiO2 11/22/16 07:30 36.7 57 20 154/77 92 Room Air 11/22/16 00:00 94 Room Air 11/22/16 00:00 36.4 59 20 124/65 91 Room Air 11/21/16 20:47 57 127/71 91 Room Air 11/21/16 16:13 94 Room Air 11/21/16 15:22 36.5 54 18 104/52 94 Room Air 11/21/16 12:29 36.5 55 18 94/57 92 Room Air Physical Exam General Appearance: no apparent distress Eyes: normal inspection ENT: normal ENT inspection Neck: supple Respiratory/Chest: normal breath sounds, no respiratory distress, no accessory muscle use Cardiovascular: regular rate, rhythm, no murmur Abdomen: normal bowel sounds, non tender, soft Extremities: no calf tenderness, + pedal edema (left LE has +4 and right has + 2) Neurologic/Psychiatric: alert, normal mood/affect, oriented x 3 Skin: normal color, warm/dry, no rash Lymphatic: no adenopathy Laboratory Results Results Past 24 Hours Test 11/21/16 11:55 11/21/16 16:34 11/21/16 20:18 11/21/16 20:20 Range/Units Bedside Glucose 193 128 70-99 mg/dl Urine Color RED Urine Appearance CLEAR CLEAR Urine pH 5.5 4.5-7.5 Urine Specific [place] 1.007 1.000-1.030 Urine Protein NEG NEG Urine Glucose (UA) NEG NEG Urine Ketones NEG NEG Urine Occult Blood 3+ NEG Urine Nitrite NEG NEG Urine Bilirubin NEG NEG Urine Urobilinogen NEG NEG Urine Leukocyte Esterase TRACE NEG Urine WBC (Auto) 1-5 0-5 /hpf Urine RBC (Auto) >30 0-4 /hpf Urine Hyaline Casts (Auto) 0 0-5 /lpf Urine Epithelial Cells (Auto) 0-5 0-5 /lpf Urine Bacteria (Auto) NEG NEG Hemoglobin 10.3 14.0-18.0 g/dL Hematocrit 31.5 42-52 % Test 11/21/16 20:36 11/22/16 07:03 11/22/16 08:43 Range/Units Bedside Glucose 139 70-99 mg/dl White Blood Count 7.02 4.8-10.8 K/uL Red Blood Count 3.29 4.7-6.1 M/uL Hemoglobin 10.2 10.6 14.0-18.0 g/dL Hematocrit 31.5 32.9 42-52 % Mean Corpuscular Volume 95.7 80-100 fL Mean Corpuscular Hemoglobin 31.0 25-34 pg Mean Corpuscular Hemoglobin Concent 32.4 32-36 g/dl Platelet Count 219 130-400 K/uL Mean Platelet Volume 10.3 7.4-10.4 fL Neutrophils (%) (Auto) 59.6 % Lymphocytes (%) (Auto) 26.6 % Monocytes (%) (Auto) 10.0 % Eosinophils (%) (Auto) 3.3 % Basophils (%) (Auto) 0.4 % Neutrophils # (Auto) 4.18 1.4-6.5 K/uL Lymphocytes # (Auto) 1.87 1.2-3.4 K/uL Monocytes # (Auto) 0.70 0.11-0.59 K/uL Eosinophils # (Auto) 0.23 0-0.5 K/uL Basophils # (Auto) 0.03 0-0.2 K/uL RDW Standard Deviation 48.3 36.4-46.3 fL RDW Coefficient of Variation 13.9 11.5-14.5 % Immature Granulocyte % (Auto) 0.1 % Immature Granulocyte # (Auto) 0.01 0.00-0.02 K/uL Sodium Level 140 136-145 mmol/L Potassium Level 4.1 3.5-5.1 mmol/L Chloride Level 103 98-107 mmol/L Carbon Dioxide Level 29 21-32 mmol/L Anion Gap 8.0 3-11 mmol/L Blood Urea Nitrogen 25 7-18 mg/dl Creatinine 1.30 0.60-1.40 mg/dl Est Creatinine Clear Calc Drug Dose 58.2 ml/min Estimated GFR () 58.9 Estimated GFR (Non- 50.8 BUN/Creatinine Ratio 19.2 10-20 Random Glucose 142 70-99 mg/dl Calcium Level 8.9 8.5-10.1 mg/dl Microbiology Results 11/21/16 Urine Culture, Received Pending Assessment and Plan 81 year old male with gross hematuria after having a kyle catheter inserted. Patient has a history of BPH and has requiring catheterizations recently and plan was for an outpt follow up with urology for cystoscopy vs inpatient Gross hematuria - most likely traumatic from catheter insertion vs. hemorrhagic cystitis, vs. diverticuli bleed vs bladder ca - monitor HH q 6 h until hematuria resolves- stable - hold aspirin and plavix - [facility] consult to discuss holding these medications - switch bactrim to ciprofloxacin - UA + micro + culture - continuous irrigation of triple lumen until hematuria resolves - Diet as plan for cystoscopy - Consult urology - appreciate input BPH - Finasteride while inpt Coronary artery disease - holding ASA and plavix secondary to gross hematuria - Continue imdur at night as gets angina otherwise - Continue atenolol and losartan - Continue atorvastatin Hypertension - Continue outpatient medications: atenolol, HZCT, losartan, bumex - slightly hypotensive and constantin, will hold atenolol tomorrow am Type 2 diabetes - hold outpatient medications - ACHS BSG - Insulin sliding scale written VTE Prophylaxis - chemical contraindicated given gross hematuria - SCDs and ENID ordered Code - Discussed with patient and his and he wishes to be for full resuscitation Resident Physician Supervision Note: I interviewed and examined the patient. Discussed with Dr. Anedrson and agree with findings and plan as documented in the note. Any exceptions or clarifications are listed here: None Documented By: Maximiliano Lee feeling about the same, hoping for cysto today no new complaints. ros otherwise negative except for as above vitals noted nad breahing unlabored, urine still red hematuria - irrigation, anticipate cysto in near future Continued [facility] stay due to: other Discharge planning: uncertain
--- NOTE | 2016-11-22 12:34 | Progress Note ---
Subjective Date of Service: November 22, 2016. Subjective Pt evaluation today including: conversation w/ patient, chart review, lab review Voiding: kyle catheter in place 81 yo male with BPH, urinary retention, and gross hematuria. Kyle draining light lama colored urine in bag and clear urine in drainage tube with CBI running this afternoon. Pt reports one episode of clotting off since yesterday. Otherwise feels well, and denies pain. We have discussed the possibility of TURP in the future this morning. He reports he would like his hydrocele fixed as he feels this is affecting his urination and making it difficult to visualize his penis. Denies pain with the hydrocele. H&H stable at 10.6 and 32.9 this morning. Cr has improved to 1.3. PSA noted to be elevated at 14.1. UC&S pending. Problem List Medical Problems: (1) Cellulitis of left lower leg Status: Acute (2) Kyle catheter problem Status: Acute (3) Urinary retention Status: Acute (4) Urinary retention Status: Acute (5) Wound infection Status: Acute Review of Systems Constitutional: No chills, No fever Respiratory: No shortness of breath Cardiac: No chest pain Abdomen: No nausea, No pain, No vomiting Male : + hematuria Heme: + abnormal bleeding/bruising Objective Vital Signs Date Time Temp Pulse Resp B/P Pulse Ox O2 Delivery O2 Flow Rate FiO2 11/22/16 08:00 Room Air 11/22/16 07:30 36.7 57 20 154/77 92 Room Air 11/22/16 00:00 94 Room Air 11/22/16 00:00 36.4 59 20 124/65 91 Room Air 11/21/16 20:47 57 127/71 91 Room Air 11/21/16 16:13 94 Room Air 11/21/16 15:22 36.5 54 18 104/52 94 Room Air 11/21/16 12:29 36.5 55 18 94/57 92 Room Air Physical Exam General Appearance: no apparent distress, + obese Eyes: normal inspection ENT: hearing grossly normal Neck: no JVD Respiratory/Chest: no respiratory distress, no accessory muscle use Cardiovascular: no JVD Extremities: normal inspection Neurologic/Psychiatric: alert, normal mood/affect, oriented x 3 Skin: normal color Comments: Normal penis and scrotum on exam today. Minimal left hydrocele noted. Some right epididymal tenderness noted as well. Laboratory Results Last 24 Hours Test 11/21/16 16:34 11/21/16 20:18 11/21/16 20:20 11/21/16 20:36 Bedside Glucose 128 mg/dl 139 mg/dl Urine Color RED Urine Appearance CLEAR Urine pH 5.5 Urine Specific [place] 1.007 Urine Protein NEG Urine Glucose (UA) NEG Urine Ketones NEG Urine Occult Blood 3+ Urine Nitrite NEG Urine Bilirubin NEG Urine Urobilinogen NEG Urine Leukocyte Esterase TRACE Urine WBC (Auto) 1-5 /hpf Urine RBC (Auto) >30 /hpf Urine Hyaline Casts (Auto) 0 /lpf Urine Epithelial Cells (Auto) 0-5 /lpf Urine Bacteria (Auto) NEG Hemoglobin 10.3 g/dL Hematocrit 31.5 % Test 11/22/16 07:03 11/22/16 08:43 11/22/16 12:00 White Blood Count 7.02 K/uL Red Blood Count 3.29 M/uL Hemoglobin 10.2 g/dL 10.6 g/dL Hematocrit 31.5 % 32.9 % Mean Corpuscular Volume 95.7 fL Mean Corpuscular Hemoglobin 31.0 pg Mean Corpuscular Hemoglobin Concent 32.4 g/dl Platelet Count 219 K/uL Mean Platelet Volume 10.3 fL Neutrophils (%) (Auto) 59.6 % Lymphocytes (%) (Auto) 26.6 % Monocytes (%) (Auto) 10.0 % Eosinophils (%) (Auto) 3.3 % Basophils (%) (Auto) 0.4 % Neutrophils # (Auto) 4.18 K/uL Lymphocytes # (Auto) 1.87 K/uL Monocytes # (Auto) 0.70 K/uL Eosinophils # (Auto) 0.23 K/uL Basophils # (Auto) 0.03 K/uL RDW Standard Deviation 48.3 fL RDW Coefficient of Variation 13.9 % Immature Granulocyte % (Auto) 0.1 % Immature Granulocyte # (Auto) 0.01 K/uL Sodium Level 140 mmol/L Potassium Level 4.1 mmol/L Chloride Level 103 mmol/L Carbon Dioxide Level 29 mmol/L Anion Gap 8.0 mmol/L Blood Urea Nitrogen 25 mg/dl Creatinine 1.30 mg/dl Est Creatinine Clear Calc Drug Dose 58.2 ml/min Estimated GFR () 58.9 Estimated GFR (Non- 50.8 BUN/Creatinine Ratio 19.2 Random Glucose 142 mg/dl Calcium Level 8.9 mg/dl Assessment and Plan 1. Gross hematuria Hematuria improving. Recommend continuing CBI through today. If urine remains clear tomorrow, can try clamping CBI. Continue hand irrigation of kyle catheter by nursing staff qshift. Continue to monitor H&H. Supportive management with transfusions PRN per primary service. Remain off Plavix and ASA while actively bleeding. UC&S and cytology pending. Will need outpatient cysto for further evaluation. 2. BPH, urinary retention Continue finasteride and alfuzosin. Pt previously failed 1 TOV. Will leave kyle in place for now. Will consider a TURP as an outpatient in the future. Will need outpatient cysto for further evaluation. 3. Elevated PSA PSA of 14.1. May be elevated in the setting of urinary retention. Will likely need repeated in 4-6 weeks. May consider outpatient prostate bx if PSA remains elevated. 4. Left hydrocele Minimal hydrocele on exam today. I did discuss with the pt that his hydrocele is not a cause for his difficult urination, and a hydrocelectomy will likely only cause increased swelling and pain. Obesity is the most likely cause his penis seems buried to him. A hydrocelectomy will not improve this problem. BPH the most likely cause for his urinary retention, and hydrocele is unrelated to this as well. However, will obtain a testicular u/s while inpatient to confirm the presence of hydrocele and no other abnormal pathology. Will continue to follow along with primary service. Continued [facility] stay due to: other Discharge planning: uncertain
[2016-11-22] MEDS: SODIUM CHLORIDE 0.9% 1000ML 1,000 ML IV SCH ×2 (12:38→23:29)
[2016-11-22 12:43] LABS: HEMATOCRIT 32.8 % (42-52)
--- NOTE | 2016-11-22 14:09 | DIAGNOSTIC IMAGING REPORT ---
TESTICULAR ULTRASOUND CLINICAL HISTORY: Hydrocele COMPARISON STUDY: No previous studies for comparison. FINDINGS: The right testis measures 22 x 21 x 19 mm. The left testis measures 21 x 19 x 18 mm. No intratesticular masses are visualized. There is no evidence of testicular torsion. There is a large left-sided hydrocele and moderate right-sided hydrocele. IMPRESSION: 1. No evidence of intratesticular mass 2. No evidence of testicular torsion 3. Bilateral hydroceles Electronically signed by: Jimmy Catalan M.D. 11/22/2016 2:08 PM Dictated Date/Time: 11/22/2016 2:06 PM
[2016-11-22 16:04] LABS: HEMATOCRIT 33.4 % (42-52)
[2016-11-22 16:10] VITALS: O2SAT 94
[2016-11-22 16:28] VITALS: BP 109/67; PULSE 59; TEMP 36.9; O2SAT 93
[2016-11-22 20:29] LABS: HEMATOCRIT 32.1 % (42-52)
[2016-11-22] MEDS: ISOSORBIDE MONONITRATE 60 MG TABCR PO SCH (21:23)
[2016-11-22] MEDS: CIPROFLOXACIN 500 MG TAB PO SCH (21:24)
[2016-11-22] MEDS: ATORVASTATIN 40 MG TAB PO SCH (21:24)
[2016-11-22] MEDS: ZOLPIDEM TARTRATE 5 MG TAB PO PRN (21:29)
[2016-11-22] MEDS: LIDOCAINE HCL 2% JELLY 30 ML TUBE EXT SCH (21:30)
[2016-11-23] VITALS: BP 119/66; PULSE 55; TEMP 36.5; O2SAT 91; O2SAT 94
[2016-11-23 07:35] VITALS: PULSE 60
[2016-11-23] MEDS: OXYCODONE HCL 10 MG TABCR (OXYCONTIN) PO SCH ×2 (07:37→20:53)
[2016-11-23] MEDS: MULTIVITAMIN TAB PO SCH (07:41)
[2016-11-23] MEDS: POTASSIUM CHLORIDE 20 MEQ TABCR PO SCH (07:41)
[2016-11-23] MEDS: CIPROFLOXACIN 500 MG TAB PO SCH ×2 (07:42→20:54)
[2016-11-23] MEDS: BUMETANIDE 1 MG TAB PO SCH (07:42)
[2016-11-23] MEDS: LOSARTAN POTASSIUM 50 MG TAB PO SCH (07:43)
[2016-11-23] MEDS: PANTOprazole SOD 40 MG TAB PO SCH (07:43)
[2016-11-23] MEDS: FINASTERIDE 5 MG TAB PO SCH (07:43)
[2016-11-23] MEDS: ALFUZosin TAB 10 MG TAB PO SCH (07:43)
[2016-11-23] MEDS: LIDOCAINE HCL 2% JELLY 30 ML TUBE EXT SCH ×2 (08:00→20:00)
[2016-11-23 08:04] LABS: HEMATOCRIT 30.2 % (42-52)
[2016-11-23 08:15] VITALS: BP 161/81; PULSE 80; TEMP 36.5; O2SAT 92
[2016-11-23] MEDS: INSULIN HUMAN REGULAR SC SCH ×4 (08:36→20:58)
--- NOTE | 2016-11-23 08:47 | Family Medicine Progress Note ---
Progress Note Date of Service November 23, 2016. Subjective Pt evaluation today including: conversation w/ patient, physical exam, chart review, lab review, review of studies Pain: 0/10 PO Intake: NPO Voiding: kyle catheter in place patient is anticipating cystoscopy today, hematuria is ongoing questions addressed Constitutional: No fever Eyes: No worsening of vision ENT: No hearing loss Respiratory: No cough, No dyspnea on exertion, No shortness of breath, No sputum, No wheezing Cardiovascular: No chest pain Abdomen: No constipation, No diarrhea, No nausea, No pain, No vomiting Musculoskeletal: + swelling (L>R no change from BL), No joint pain, No muscle pain Male : + hematuria, No dysuria Neurologic: No balance problems, No weakness Psychiatric: No anxiety Endo: No fatigue Medications Medications Administered Medications (Trade) Dose Ordered Sig/Jez Route Start Time Stop Time Status Last Admin Dose Admin Glimepiride (Amaryl Tab) 2 mg NOW STAT PO 11/20/16 19:24 11/20/16 19:29 DC 11/20/16 20:03 2 MG Atorvastatin Calcium (Lipitor Tab) 40 mg NOW STAT PO 11/20/16 19:24 11/20/16 19:29 DC 11/20/16 20:03 40 MG Oxycodone HCl (Roxicodone Immediate Rel Tab) 10 mg NOW STAT PO 11/20/16 19:24 11/20/16 19:29 DC 11/20/16 20:02 10 MG Trimethoprim/ Sulfamethoxazole (Septra Ds 800/ 160MG Tab) 1 tab NOW STAT PO 11/20/16 19:24 11/20/16 19:29 DC 11/20/16 20:00 1 TAB Calcium Carbonate (Tums Chew Tab) 500 mg NOW STAT PO 11/20/16 19:24 11/20/16 19:29 DC 11/20/16 20:05 500 MG Niacin (Niacin Tab) 500 mg NOW STAT PO 11/20/16 19:24 11/20/16 19:29 DC 11/20/16 20:04 500 MG Metformin HCl (Glucophage Tab) 1,000 mg NOW STAT PO 11/20/16 19:24 11/20/16 19:29 DC 11/20/16 20:06 1,000 MG Ondansetron HCl (Zofran Inj) 4 mg Q6H PRN IV 11/20/16 20:15 12/20/16 20:14 11/21/16 09:53 4 MG Alfuzosin HCl (Uroxatral Tab) 10 mg DAILY PO 11/21/16 09:00 12/21/16 08:59 11/23/16 07:43 10 MG Atenolol (Tenormin Tab) 50 mg QAM PO 11/21/16 09:00 12/21/16 08:59 11/23/16 07:43 50 MG Atorvastatin Calcium (Lipitor Tab) 40 mg HS PO 11/20/16 21:00 12/20/16 20:59 11/22/16 21:24 40 MG Bumetanide (Bumex Tab) 2 mg DAILY PO 11/21/16 09:00 12/21/16 08:59 11/23/16 07:42 2 MG Isosorbide Mononitrate (Imdur Ext Rel Tab) 120 mg HS PO 11/21/16 21:00 12/21/16 20:59 11/22/16 21:23 120 MG Losartan Potassium (coZAAR TAB) 100 mg QAM PO 11/21/16 09:00 12/21/16 08:59 11/23/16 07:43 100 MG Multivitamins (Multivitamin Tab) 1 tab QAM PO 11/21/16 09:00 12/21/16 08:59 11/23/16 07:41 1 TAB Oxycodone HCl (Oxycontin Tab) 10 mg BID PO 11/20/16 21:00 12/04/16 20:59 11/23/16 07:37 10 MG Pantoprazole Sodium (Protonix Tab) 40 mg QAM PO 11/21/16 09:00 12/21/16 08:59 11/23/16 07:43 40 MG Potassium Chloride (Klor-Con Tab) 20 meq QAM PO 11/21/16 09:00 12/21/16 08:59 11/23/16 07:41 20 MEQ Insulin Human Regular (novoLIN-R) SLIDING SCALE IF C... ACHS SC 11/20/16 21:00 12/20/16 20:59 11/23/16 08:36 1 UNITS Miscellaneous Information (Dc All Previously Ordered Diabetes Meds) 1 ea ONE ONCE N/A 11/20/16 20:15 11/20/16 21:30 DC 11/20/16 23:57 1 EA Isosorbide Mononitrate 120 mg 120 mg NOW STAT PO 11/20/16 20:16 11/20/16 20:17 DC 11/20/16 20:41 120 MG Ciprofloxacin/ Dextrose 400 mg/ Prmx 200 ml @ 100 mls/hr Q12H IV 11/20/16 22:00 11/22/16 14:15 DC 11/22/16 10:11 100 MLS/HR Sodium Chloride (Nss 1000ml) 1,000 ml @ 80 mls/hr [id number] IV 11/20/16 21:45 12/20/16 21:44 11/22/16 23:29 80 MLS/HR Finasteride (Proscar Tab) 5 mg QAM PO 11/21/16 09:00 12/21/16 08:59 11/23/16 07:43 5 MG Hydromorphone HCl (Dilaudid Inj) 1 mg STK-MED ONCE .ROUTE 11/21/16 08:05 11/21/16 08:06 DC 11/21/16 08:09 1 MG Zolpidem Tartrate (Ambien Tab) 5 mg HS PRN PO 11/22/16 00:00 12/22/16 00:00 11/22/16 21:29 5 MG Zolpidem Tartrate (Ambien Tab) 5 mg STK-MED ONCE .ROUTE 11/22/16 00:00 11/22/16 00:01 DC 11/22/16 00:26 5 MG Lidocaine HCl (Xylocaine Jelly 2%) 1 ml BID EXT 11/22/16 20:00 12/22/16 19:59 11/22/16 21:30 1 ML Ciprofloxacin (Cipro Tab) 500 mg BID PO 11/22/16 20:00 11/30/16 21:59 11/23/16 07:42 500 MG Objective Vital Signs Date Time Temp Pulse Resp B/P Pulse Ox O2 Delivery O2 Flow Rate FiO2 11/23/16 08:15 36.5 80 20 161/81 92 Room Air 11/23/16 07:47 Room Air 11/23/16 07:35 60 11/23/16 00:00 36.5 55 20 119/66 91 Room Air 11/23/16 00:00 94 Room Air 11/22/16 16:28 36.9 59 22 109/67 93 Room Air 11/22/16 16:10 94 Room Air Physical Exam General Appearance: no apparent distress Eyes: normal inspection ENT: normal ENT inspection Neck: supple Respiratory/Chest: normal breath sounds, no respiratory distress, no accessory muscle use Cardiovascular: regular rate, rhythm, no murmur Abdomen: normal bowel sounds, non tender, soft Extremities: normal inspection, no calf tenderness, + pedal edema (L is +4 and Rt is +2) Neurologic/Psychiatric: alert, normal mood/affect, oriented x 3 Skin: normal color, warm/dry, no rash, + pertinent finding (mild erythema on the left LE is unchanged) Lymphatic: no adenopathy Laboratory Results Results Past 24 Hours Test 11/22/16 11:58 11/22/16 12:14 11/22/16 15:55 11/22/16 17:08 Range/Units Bedside Glucose 189 151 70-99 mg/dl Hemoglobin 10.5 11.1 14.0-18.0 g/dL Hematocrit 32.8 33.4 42-52 % Test 11/22/16 20:23 11/22/16 21:10 11/23/16 07:45 Range/Units Hemoglobin 10.6 10.0 14.0-18.0 g/dL Hematocrit 32.1 30.2 42-52 % Bedside Glucose 188 70-99 mg/dl Assessment and Plan 81 year old male with gross hematuria after having a kyle catheter inserted. Patient has a history of BPH and has requiring catheterizations recently and plan was for an outpt follow up with urology for cystoscopy vs inpatient. Gross hematuria - most likely traumatic from catheter insertion vs. hemorrhagic cystitis, vs. diverticuli bleed vs bladder ca - monitor HH q 6 h until hematuria resolves- stable - hold aspirin and plavix - [facility] consult to discuss holding these medications - switch bactrim to ciprofloxacin - UA + micro + culture - continuous irrigation of triple lumen until hematuria resolves - Diet as plan for cystoscopy - Consult urology - appreciate input BPH - Finasteride while inpt Coronary artery disease - holding ASA and plavix secondary to gross hematuria - Continue imdur at night as gets angina otherwise - Continue atenolol and losartan - Continue atorvastatin Hypertension - Continue outpatient medications: atenolol, HZCT, losartan, bumex Type 2 diabetes - hold outpatient medications - ACHS BSG - Insulin sliding scale written VTE Prophylaxis - chemical contraindicated given gross hematuria - SCDs and ENID ordered Code - Discussed with patient and his and he wishes to be for full resuscitation Resident Physician Supervision Note: I interviewed and examined the patient. Discussed with Dr. Anderson and agree with findings and plan as documented in the note. Any exceptions or clarifications are listed here: None Documented By: Maximiliano Lee feeling about the same, no new complaints. d/w dr almanza - waiting on cysto due to having been on plavix vitals noted nad breathing unlabored no pallor or icterus urine still red but maybe clearing some hematuria - ongoing irrigation -- then cysto at some point in future depending on ongoing bleeding / plavix / irrigation Resident Tracking Resident Involvement: Resident Care Provided Care Provided: Adult Hospital Medicine
--- NOTE | 2016-11-23 09:05 | Progress Note ---
Subjective Date of Service: November 23, 2016. (Felecia Alanis CRNP) Subjective Pt evaluation today including: conversation w/ patient, physical exam, chart review, lab review Voiding: kyle catheter in place Hematuria continues. CBI running - urine is currently lama colored without clots. Pt reports he is feeling better. Nurse reports over night was troublesome- he went through 13 bags of CBI and needed frequent hand irrigation with significant clot return. AFVSS- Hgb and Hct have dropped slightly. Creatinine stable He has been NPO after midnight for possible surgery. Preliminary urine culture is showing no growth. (Felecia Alanis CRNP) Problem List Medical Problems: (1) Cellulitis of left lower leg Status: Acute (2) Kyle catheter problem Status: Acute (3) Urinary retention Status: Acute (4) Urinary retention Status: Acute (5) Wound infection Status: Acute (Felecia Alanis CRNP) Review of Systems Constitutional: No chills, No fever Eyes: No worsening of vision ENT: No hearing loss Respiratory: No cough, No shortness of breath Cardiac: No chest pain Abdomen: No pain, No vomiting Musculoskeletal: No joint pain Male : + see HPI Psychiatric: No depression symptoms Heme: + see HPI Endo: No fatigue (Felecia Alanis CRNP) Objective Vital Signs Date Time Temp Pulse Resp B/P Pulse Ox O2 Delivery O2 Flow Rate FiO2 11/23/16 08:15 36.5 80 20 161/81 92 Room Air 11/23/16 07:47 Room Air 11/23/16 07:35 60 11/23/16 00:00 36.5 55 20 119/66 91 Room Air 11/23/16 00:00 94 Room Air 11/22/16 16:28 36.9 59 22 109/67 93 Room Air 11/22/16 16:10 94 Room Air (Felecia Alanis CRNP) Physical Exam General Appearance: WD/WN, no apparent distress ENT: hearing grossly normal Neck: no JVD Respiratory/Chest: no respiratory distress, no accessory muscle use Abdomen: soft Extremities: no calf tenderness Neurologic/Psychiatric: alert, normal mood/affect, oriented x 3 Skin: normal color, warm/dry (Felecia Alanis CRNP) Laboratory Results Last 24 Hours Test 11/22/16 08:43 11/22/16 11:58 11/22/16 12:14 11/22/16 15:55 Hemoglobin 10.6 g/dL 10.5 g/dL 11.1 g/dL Hematocrit 32.9 % 32.8 % 33.4 % Bedside Glucose 189 mg/dl Test 11/22/16 17:08 11/22/16 20:23 11/22/16 21:10 11/23/16 07:45 Bedside Glucose 151 mg/dl 188 mg/dl Hemoglobin 10.6 g/dL 10.0 g/dL Hematocrit 32.1 % 30.2 % (Felecia Alanis CRNP) Assessment and Plan Gross Hematuria. Unfortunately he had bleeding w/ clots overnight- needing 13 bags of CBI and frequent hand irrigation. Currently urine is lama and clot free. He is feeling well. Discussed case with Dr. Martinez- Keep pt NPO, will continue to monitor, he will be over this afternoon to re-evaluate pt's need for surgery. Continue CBI for now, hand irrigate qshift and prn. Will continue to follow closely. Continued [facility] stay due to: other Discharge planning: uncertain (Felecia Alanis CRNP) urine clear light lama on slow cbi . No need for irrigation today . Discussed w pharmacy and confirmed it would be best to wait 5 days for intervention off plavix from bleeding POV. Started alum bladder irrigation . Will observe npo and recheck this pm . If not worse will let him eat but make npo after midnite and reassess in am . Discussed with Dr. Greene. PSA is 14 on avodart or 28 adjusted which raises concern for prostate cancer. May be able to biopsy if can wait til Saturday . Have not metcalf maxine for fear of making bleeding worse. Will continue to follow closely Rush Martinez (Rush Martinez M.D.)
[2016-11-23] MEDS ORDERED: AMMONIUM ALUM IR PRN (12:15)
[2016-11-23] MEDS ORDERED: SODIUM CHLORIDE 0.9% IR PRN (12:15)
[2016-11-23] MEDS: SODIUM CHLORIDE 0.9% 1000ML 1,000 ML IV SCH (12:46)
[2016-11-23 15:32] VITALS: BP 133/77; PULSE 57; TEMP 36.3; O2SAT 92
[2016-11-23] MEDS: ISOSORBIDE MONONITRATE 60 MG TABCR PO SCH (20:55)
[2016-11-23] MEDS: ATORVASTATIN 40 MG TAB PO SCH (20:56)
[2016-11-23] MEDS: ZOLPIDEM TARTRATE 5 MG TAB PO PRN (22:31)
[2016-11-23 23:53] VITALS: BP 119/66; PULSE 61; TEMP 36.8; O2SAT 93
[2016-11-24] MEDS: SODIUM CHLORIDE 0.9% 1000ML 1,000 ML IV SCH ×2 (00:45→13:14)
[2016-11-24 07:38] LABS: HEMATOCRIT 31.6 % (42-52); MEAN CELL VOLUME 95.5 fL (80-100); MEAN CORPUSCULAR HEMOGLOBIN 31.1 pg (25-34); MEAN CORPUSCULAR HGB CONC 32.6 g/dl (32-36); MEAN PLATELET VOLUME 10.5 fL (7.4-10.4); PLATELET COUNT 209 K/uL (130-400); RED BLOOD COUNT 3.31 M/uL (4.7-6.1); WHITE BLOOD COUNT 7.64 K/uL (4.8-10.8)
[2016-11-24 07:55] VITALS: BP 142/71; PULSE 62; TEMP 36.6; O2SAT 93
[2016-11-24] MEDS: LIDOCAINE HCL 2% JELLY 30 ML TUBE EXT SCH ×2 (08:00→20:00)
[2016-11-24] MEDS: CIPROFLOXACIN 500 MG TAB PO SCH ×2 (08:02→20:26)
[2016-11-24] MEDS: FINASTERIDE 5 MG TAB PO SCH (08:02)
[2016-11-24] MEDS: ALFUZosin TAB 10 MG TAB PO SCH (08:02)
[2016-11-24] MEDS: PANTOprazole SOD 40 MG TAB PO SCH (08:02)
[2016-11-24] MEDS: POTASSIUM CHLORIDE 20 MEQ TABCR PO SCH (08:02)
[2016-11-24] MEDS: BUMETANIDE 1 MG TAB PO SCH (08:02)
[2016-11-24] MEDS: LOSARTAN POTASSIUM 50 MG TAB PO SCH (08:02)
[2016-11-24] MEDS: MULTIVITAMIN TAB PO SCH (08:02)
[2016-11-24] MEDS: OXYCODONE HCL 10 MG TABCR (OXYCONTIN) PO SCH ×2 (08:07→20:26)
[2016-11-24 08:08] LABS: BUN/CREATININE RATIO 22.8 (10-20); CREATININE 1.2 mg/dl (0.60-1.40); POTASSIUM 3.7 mmol/L (3.5-5.1)
[2016-11-24] MEDS: INSULIN HUMAN REGULAR SC SCH ×4 (08:11→20:44)
[2016-11-24 08:26] LABS: CALCIUM 8.5 mg/dl (8.5-10.1)
--- NOTE | 2016-11-24 12:30 | Progress Note ---
Subjective Date of Service: November 24, 2016. Subjective Pt evaluation today including: conversation w/ patient, conversation w/ family , physical exam, chart review, lab review, review of studies, conversation w/ oracle application consultant Spent 45 minutes reviewing patients past urologic history and another 30 discussing his problems and options and concerns with the patient and his by phone at the same time. The pt has a long history of bph and has had 2 prostate biopsies and a brother with prostate cancer . His biopsies were in 1999 and 2002 and they were negative for cancer . 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 His psa in 2002 was 2.34 and in 2006 the last I see it was 3.45. His current psa on avodart which was started around 2006 is 14.1 adjusted for avodart it is 28.2 or worrisome for cancer. He has a distant hx of heavy smoking and his last cysto was 12 years ago which makes bladder cancer a possibility .The pt is a long time diabetic and has a history of cardiac disease which makes anesthesia high risk . In addition being off plavix clearly increases his cardiac risk but at this point his urine is still pink on moderate cbi improved from yesterday but bloodier when irrigation is stopped. I attempted to initiate alum irrigation yesterday but the pt could not tolerate secondary to a suprapubic burning sensation. Given this history tomorrow is his fifth day off plavix which is the first day I would feel comfortable considering a cystoscopy and possible TURBT. If no tumor is seen then the question becomes should a limited turp be attempted to see if the pt who has failed two recent voiding trials could be weaned off his kyle . I have explained the size of his gland makes an aggressive resection difficult and he would have to be off plavix at least several weeks because of a risk off delayed bleeding . Given the pt overall health ,his CAD and use of aspirin and plavix , and the unknown and complex nature of his gu pathology ther are no easy or safe choices . If his urine clears it may not be unreasonable to do an outpt cysto and possibly a prostate biopsy to define his problems but this means ongoing indwelling kyle and risk of bleeding and infection and more time off plavix . We agreed to consider a cysto and possible turbt and possible limited turp in am if he requires ongoing cbi . Of note his hct is stable and slightly up to 31 today . If urine has cleared will stop cbi and wath to see if he can be discharged with a kyle to have outpt w/u off plavix Problem List Medical Problems: (1) Cellulitis of left lower leg Status: Acute (2) Kyle catheter problem Status: Acute (3) Urinary retention Status: Acute (4) Urinary retention Status: Acute (5) Wound infection Status: Acute Objective Vital Signs Date Time Temp Pulse Resp B/P Pulse Ox O2 Delivery O2 Flow Rate FiO2 11/24/16 08:00 Room Air 11/24/16 07:55 36.6 62 20 142/71 93 Room Air 11/24/16 07:09 Room Air 11/24/16 01:42 Room Air 11/23/16 23:53 36.8 61 20 119/66 93 Room Air 11/23/16 19:52 Room Air 11/23/16 16:00 Room Air 11/23/16 15:32 36.3 57 20 133/77 92 Laboratory Results Last 24 Hours Test 11/23/16 16:45 11/23/16 19:55 11/24/16 07:03 11/24/16 07:39 Bedside Glucose 174 mg/dl 179 mg/dl 176 mg/dl White Blood Count 7.64 K/uL Red Blood Count 3.31 M/uL Hemoglobin 10.3 g/dL Hematocrit 31.6 % Mean Corpuscular Volume 95.5 fL Mean Corpuscular Hemoglobin 31.1 pg Mean Corpuscular Hemoglobin Concent 32.6 g/dl RDW Standard Deviation 48.2 fL RDW Coefficient of Variation 13.9 % Platelet Count 209 K/uL Mean Platelet Volume 10.5 fL Sodium Level 141 mmol/L Potassium Level 3.7 mmol/L Chloride Level 104 mmol/L Carbon Dioxide Level 30 mmol/L Anion Gap 7.0 mmol/L Blood Urea Nitrogen 27 mg/dl Creatinine 1.20 mg/dl Est Creatinine Clear Calc Drug Dose 63.0 ml/min Estimated GFR () 64.9 Estimated GFR (Non- 56.0 BUN/Creatinine Ratio 22.8 Random Glucose 172 mg/dl Calcium Level 8.5 mg/dl Assessment and Plan Possible cysto and turbt or limited turp in am if bleeding persists Discussed risks and benefits and complexity of the situation at [facility] w pt and and answered all questions regarding consent Continued [facility] stay due to: other Discharge planning: uncertain
--- NOTE | 2016-11-24 14:34 | DIAGNOSTIC IMAGING REPORT ---
CHEST 2 VIEWS ROUTINE CLINICAL HISTORY: preop preoperative evaluation COMPARISON STUDY: 07/11/2014. FINDINGS: Mild stable cardiomegaly. Prior median sternotomy. Chronic platelike atelectasis right base. Lungs are clear. IMPRESSION: Chronic and postoperative change. No acute process. Electronically signed by: Garry Bell M.D. 11/24/2016 2:32 PM Dictated Date/Time: 11/24/2016 2:31 PM
[2016-11-24 14:58] VITALS: BP 91/55; PULSE 65; TEMP 36.5; O2SAT 94
--- NOTE | 2016-11-24 16:44 | Progress Note ---
Subjective Date of Service: November 24, 2016. Subjective Pt evaluation today including: conversation w/ patient, physical exam, chart review, lab review, review of studies, review of inpatient medication list Pain: no pain reported Voiding: kyle catheter in place Pt is seen and examined by me. pt is comfortably lying in bed, denies any complain at present.blood in the urine is improved, slightly pain in the bladder area when he urinate.waiting for cystoscopy. Problem List Medical Problems: (1) Cellulitis of left lower leg Status: Acute (2) Kyle catheter problem Status: Acute (3) Urinary retention Status: Acute (4) Urinary retention Status: Acute (5) Wound infection Status: Acute Review of Systems Constitutional: No fever Eyes: No worsening of vision ENT: No hearing loss Respiratory: No cough, No dyspnea on exertion, No shortness of breath, No sputum, No wheezing Cardiovascular: No chest pain Abdomen: No constipation, No diarrhea, No nausea, No pain, No vomiting Musculoskeletal: + swelling (L>R no change from BL), No joint pain, No muscle pain Male : + hematuria, No dysuria Neurologic: No balance problems, No weakness Psychiatric: No anxiety Endo: No fatigue Medications Last Resulted CBC 11/24/16 07:03 Last Resulted BMP 11/24/16 07:03 Objective Vital Signs Date Time Temp Pulse Resp B/P Pulse Ox O2 Delivery O2 Flow Rate FiO2 11/24/16 14:58 36.5 65 20 91/55 94 Room Air 11/24/16 08:00 Room Air 11/24/16 07:55 36.6 62 20 142/71 93 Room Air 11/24/16 07:09 Room Air 11/24/16 01:42 Room Air 11/23/16 23:53 36.8 61 20 119/66 93 Room Air 11/23/16 19:52 Room Air Physical Exam Comments: eneral Appearance: no apparent distress Eyes: normal inspection ENT: normal ENT inspection Neck: supple Respiratory/Chest: normal breath sounds, no respiratory distress, no accessory muscle use Cardiovascular: regular rate, rhythm, no murmur Abdomen: normal bowel sounds, non tender, soft Extremities: normal inspection, no calf tenderness, + pedal edema (L is +4 and Rt is +2) Neurologic/Psychiatric: alert, normal mood/affect, oriented x 3 Skin: normal color, warm/dry, no rash, + pertinent finding (mild erythema on the left LE is unchanged) Lymphatic: no adenopathy Laboratory Results Last 24 Hours Test 11/23/16 16:45 11/23/16 19:55 11/24/16 07:03 11/24/16 07:39 Bedside Glucose 174 mg/dl 179 mg/dl 176 mg/dl White Blood Count 7.64 K/uL Red Blood Count 3.31 M/uL Hemoglobin 10.3 g/dL Hematocrit 31.6 % Mean Corpuscular Volume 95.5 fL Mean Corpuscular Hemoglobin 31.1 pg Mean Corpuscular Hemoglobin Concent 32.6 g/dl RDW Standard Deviation 48.2 fL RDW Coefficient of Variation 13.9 % Platelet Count 209 K/uL Mean Platelet Volume 10.5 fL Sodium Level 141 mmol/L Potassium Level 3.7 mmol/L Chloride Level 104 mmol/L Carbon Dioxide Level 30 mmol/L Anion Gap 7.0 mmol/L Blood Urea Nitrogen 27 mg/dl Creatinine 1.20 mg/dl Est Creatinine Clear Calc Drug Dose 63.0 ml/min Estimated GFR () 64.9 Estimated GFR (Non- 56.0 BUN/Creatinine Ratio 22.8 Random Glucose 172 mg/dl Calcium Level 8.5 mg/dl Test 11/24/16 11:23 Bedside Glucose 186 mg/dl Assessment and Plan 81 year old male with gross hematuria after having a kyle catheter inserted. Patient has a history of BPH and has requiring catheterizations recently and plan was for an outpt follow up with urology for cystoscopy vs inpatient. Gross hematuria - most likely traumatic from catheter insertion vs. hemorrhagic cystitis, vs. diverticuli bleed vs bladder ca - improved - monitor HH q 6 h until hematuria resolves- stable at 10.3. - continue to hold aspirin and plavix - [facility] consult to discuss holding these medications - Continue ciprofloxacin - UA + micro + culture - continuous irrigation of triple lumen until hematuria resolves - Diet as plan for cystoscopy - Consult urology - appreciate input possible cysto and possible limited turp in am if he requires ongoing cbi. BPH - Finasteride while inpt Coronary artery disease - holding ASA and plavix secondary to gross hematuria - Continue imdur at night as gets angina otherwise - Continue atenolol and losartan - Continue atorvastatin Hypertension - Continue outpatient medications: atenolol, HZCT, losartan, bumex Type 2 diabetes - hold outpatient medications - ACHS BSG - Insulin sliding scale written VTE Prophylaxis - chemical contraindicated given gross hematuria - SCDs and ENID ordered Continued [facility] stay due to: other Discharge planning: uncertain
[2016-11-24 18:38] LABS: HEMATOCRIT 34.2 % (42-52)
[2016-11-24 20:33] VITALS: BP 144/83
[2016-11-24] MEDS: ISOSORBIDE MONONITRATE 60 MG TABCR PO SCH (20:35)
[2016-11-24] MEDS: ATORVASTATIN 40 MG TAB PO SCH (20:35)
[2016-11-24] MEDS: ZOLPIDEM TARTRATE 5 MG TAB PO PRN (21:49)
[2016-11-24 22:37] VITALS: BP 109/63; PULSE 63; TEMP 36.4; O2SAT 94
[2016-11-25] MEDS: SODIUM CHLORIDE 0.9% 1000ML 1,000 ML IV SCH ×2 (01:21→13:30)
[2016-11-25 07:12] VITALS: BP 180/89; PULSE 69; TEMP 36.5; O2SAT 93
[2016-11-25] MEDS: POTASSIUM CHLORIDE 20 MEQ TABCR PO SCH (07:19)
[2016-11-25] MEDS: FINASTERIDE 5 MG TAB PO SCH (07:19)
[2016-11-25] MEDS: ALFUZosin TAB 10 MG TAB PO SCH (07:20)
[2016-11-25] MEDS: PANTOprazole SOD 40 MG TAB PO SCH (07:20)
[2016-11-25] MEDS: LOSARTAN POTASSIUM 50 MG TAB PO SCH (07:20)
[2016-11-25] MEDS: MULTIVITAMIN TAB PO SCH (07:20)
[2016-11-25] MEDS: BUMETANIDE 1 MG TAB PO SCH (07:21)
[2016-11-25] MEDS: CIPROFLOXACIN 500 MG TAB PO SCH ×2 (07:21→20:03)
[2016-11-25] MEDS: INSULIN HUMAN REGULAR SC SCH ×4 (07:23→21:46)
[2016-11-25] MEDS: OXYCODONE HCL 10 MG TABCR (OXYCONTIN) PO SCH ×2 (07:32→20:02)
[2016-11-25] MEDS: LIDOCAINE HCL 2% JELLY 30 ML TUBE EXT SCH ×2 (07:33→20:00)
[2016-11-25 08:00] VITALS: O2SAT 93
--- NOTE | 2016-11-25 09:42 | Progress Note ---
Subjective Date of Service: November 25, 2016. Subjective Pt evaluation today including: conversation w/ patient, conversation w/ family , physical exam, chart review, lab review, conversation w/ wireless consultant Overnight the urine has cleared to a trace of pink. Discussed case with anesthesia who feel he is not a candidate for a spinal until 7 days off plavix. Because bleeding has resolved and his hct is up to 34 it no longer appears urgent to proceed today . Discussed stopping cbi and discharging the patient in the morning if he does well . Will try to arrange cysto Saturday and possibly Turp or turbt pending the schedule. Discussed the unavoidable risk of being off plavix for now and for several weeks after a turp if we proceed with this . Also discussed the possibility for a prostate biopsy but will feel prostate Saturday and Dr. Shaw did not note induration several months ago. Will empirically start casodex to help shrink prostate cancer .Primary problem is retention and cysto will help r/o bladder cancer. Pt says he has a low pain threshold for pain which would make TUNA not an option as outpt. Problem List Medical Problems: (1) Cellulitis of left lower leg Status: Acute (2) Funk catheter problem Status: Acute (3) Urinary retention Status: Acute (4) Urinary retention Status: Acute (5) Wound infection Status: Acute Objective Vital Signs Date Time Temp Pulse Resp B/P Pulse Ox O2 Delivery O2 Flow Rate FiO2 11/25/16 07:12 36.5 69 20 180/89 93 Room Air 11/24/16 22:37 36.4 63 20 109/63 94 Room Air 11/24/16 20:33 144/83 11/24/16 16:00 Room Air 11/24/16 14:58 36.5 65 20 91/55 94 Room Air Laboratory Results Last 24 Hours Test 11/24/16 11:23 11/24/16 16:47 11/24/16 17:43 11/24/16 19:47 Bedside Glucose 186 mg/dl 200 mg/dl 247 mg/dl Hemoglobin 11.1 g/dL Hematocrit 34.2 % Test 11/25/16 07:18 Bedside Glucose 174 mg/dl Assessment and Plan met with pt daughter and his and reviewed all the possible etiologies of bleeding including plavix and retention with catheter trauma, bladder tumor with distant smoking history, and also the risk of being off plavix which at this point seems unavoidable. Also explained that if turp done the cauterized surface would be at high risk to bleed for up to a month precluding plavix for at least 7 to10 days . Two risks cannot be simultaneously mitigated. Will try to expidite w/u by discharging pt in am if he does ok off cbi and doing cysto Saturday and possibly turp . Turp does not address the high likelihood of cancer of the prostate . Will start casodex empirically and will nee to consider whether a biopsy before tur would make sense Continued [facility] stay due to: other Discharge planning: home with home health, uncertain
--- NOTE | 2016-11-25 11:37 | Progress Note ---
Subjective Date of Service: November 25, 2016. Subjective Pt evaluation today including: conversation w/ patient, conversation w/ family , physical exam, chart review, lab review, review of studies, conversation w/ child development consultant, review of inpatient medication list Pain: no pain reported Voiding: kyle catheter in place Pt is seen and examining by me. Pt denies Cp, SOB, dizziness, palpitation and LOC. Pt denies abdominal pain and her kyle cath is draining urine with out blood. We discuss the case with Urology and per recommendation no inpatient procedure needed. Pt can be discharge after 24 hour observation to follow with Urology as out patient.Cont to hold for plavix, risk was discussed with pt in detail. Pt urologist Dr Martinez is well aware of holding Plavix for longer time.anesthesia want to hold Plavix at least seven day as per Dr Martinez. Problem List Medical Problems: (1) Cellulitis of left lower leg Status: Acute (2) Kyle catheter problem Status: Acute (3) Urinary retention Status: Acute (4) Urinary retention Status: Acute (5) Wound infection Status: Acute Review of Systems All Other Systems: Reviewed and Negative Objective Vital Signs Date Time Temp Pulse Resp B/P Pulse Ox O2 Delivery O2 Flow Rate FiO2 11/25/16 07:12 36.5 69 20 180/89 93 Room Air 11/24/16 22:37 36.4 63 20 109/63 94 Room Air 11/24/16 20:33 144/83 11/24/16 16:00 Room Air 11/24/16 14:58 36.5 65 20 91/55 94 Room Air Physical Exam General Appearance: no apparent distress Neck: supple Respiratory/Chest: lungs clear, normal breath sounds, no respiratory distress Cardiovascular: regular rate, rhythm, no edema, no gallop Abdomen: normal bowel sounds, soft, no organomegaly Extremities: non-tender, no pedal edema, no calf tenderness Neurologic/Psychiatric: alert, normal mood/affect, oriented x 3 Skin: no rash Lymphatic: no adenopathy Laboratory Results Last 24 Hours Test 11/24/16 16:47 11/24/16 17:43 11/24/16 19:47 11/25/16 07:18 Bedside Glucose 200 mg/dl 247 mg/dl 174 mg/dl Hemoglobin 11.1 g/dL Hematocrit 34.2 % Assessment and Plan 81 year old male with gross hematuria after having a kyle catheter inserted. Patient has a history of BPH and has requiring catheterizations recently and plan was for an outpt follow up with urology for cystoscopy vs inpatient. Gross hematuria - most likely traumatic from catheter insertion vs. hemorrhagic cystitis, vs. diverticula bleed vs bladder ca - Resolved - discharge in morning. - continue to hold aspirin and plavix - [facility] consult to discuss holding these medications - Continue ciprofloxacin - Urine culture negative no growth. - Resume Diabetic diet, - Consult urology - appreciate input no cysto and limited turp inpatient, stop ongoing cbi. BPH - Finasteride while inpt Coronary artery disease - holding ASA and plavix secondary to gross hematuria - Continue imdur at night as gets angina otherwise - Continue atenolol and losartan - Continue atorvastatin Hypertension - Continue outpatient medications: atenolol, HZCT, losartan, bumex Type 2 diabetes - hold outpatient medications - ACHS BSG - Insulin sliding scale written VTE Prophylaxis - chemical contraindicated given gross hematuria - SCDs and ENID ordered Continued [facility] stay due to: other Discharge planning: home with home health
[2016-11-25 14:39] VITALS: BP 109/66; PULSE 60; TEMP 36.5; O2SAT 93
[2016-11-25] MEDS: ATORVASTATIN 40 MG TAB PO SCH (21:45)
[2016-11-25] MEDS: ISOSORBIDE MONONITRATE 60 MG TABCR PO SCH (21:45)
[2016-11-25] MEDS: ZOLPIDEM TARTRATE 5 MG TAB PO PRN (23:01)
[2016-11-26 00:07] VITALS: BP 125/75; PULSE 61; TEMP 36.7; O2SAT 91
[2016-11-26] MEDS: SODIUM CHLORIDE 0.9% 1000ML 1,000 ML IV SCH (02:26)
[2016-11-26 07:05] VITALS: BP 159/85; PULSE 65; TEMP 36.4; O2SAT 91
--- NOTE | 2016-11-26 07:15 | Progress Note ---
Subjective Date of Service: November 26, 2016. Subjective Pt evaluation today including: conversation w/ patient, chart review Voiding: kyle catheter in place (patent draining clear, yellow urine with CBI running) 81 yo male with gross hematuria and urinary retention. Pt denies any clotting off of the catheter since yesterday afternoon. Urine is currently clear, yellow. Denies pain this morning. Problem List Medical Problems: (1) Cellulitis of left lower leg Status: Acute (2) Kyle catheter problem Status: Acute (3) Urinary retention Status: Acute (4) Urinary retention Status: Acute (5) Wound infection Status: Acute Review of Systems Constitutional: No chills, No fever Respiratory: No shortness of breath Cardiac: No chest pain Abdomen: No nausea, No pain, No vomiting Male : No hematuria Heme: No abnormal bleeding/bruising Objective Vital Signs Date Time Temp Pulse Resp B/P Pulse Ox O2 Delivery O2 Flow Rate FiO2 11/26/16 00:07 36.7 61 18 125/75 91 Room Air 11/26/16 00:00 Room Air 11/25/16 20:00 Room Air 11/25/16 16:00 Room Air 11/25/16 14:39 36.5 60 20 109/66 93 Room Air 11/25/16 08:00 93 Room Air 11/25/16 07:12 36.5 69 20 180/89 93 Room Air Physical Exam General Appearance: no apparent distress, + obese Eyes: normal inspection ENT: hearing grossly normal Neck: no JVD Respiratory/Chest: no respiratory distress, no accessory muscle use Cardiovascular: no JVD Extremities: normal inspection Neurologic/Psychiatric: alert, normal mood/affect, oriented x 3 Skin: normal color Laboratory Results Last 24 Hours Test 11/25/16 07:18 11/25/16 11:33 11/25/16 16:45 11/25/16 20:12 Bedside Glucose 174 mg/dl 292 mg/dl 194 mg/dl 244 mg/dl Assessment and Plan 1. Gross hematuria Hematuria improved. Will clamp CBI today. If urine remains clear, OK for d/c home from [facility]. Remain off Plavix and ASA while actively bleeding. UC&S negative. Cytology negative for high grade urothelial carcinoma. Will plan for outpatient cysto with Dr. Martinez tomorrow. Will arrange. 2. BPH, urinary retention Continue finasteride and alfuzosin. Pt previously failed 1 TOV. Will leave kyle in place for now. Possible TURP this 11-[address] Martinez as an outpatient. 3. Elevated PSA PSA of 14.1. The pt has been started on Casodex by Dr. Martinez. May consider outpatient prostate bx in the future. 4. 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 Obesity is the most likely cause his penis seems buried to him. A hydrocelectomy will not improve this problem. BPH the most likely cause for his urinary retention, and hydrocele is unrelated to this as well. Would not recommend an outpatient hydrocelectomy if not causing pain or significant swelling at this time. Will continue to follow along with primary service. Discharge planning: home with home health
[2016-11-26] MEDS: LIDOCAINE HCL 2% JELLY 30 ML TUBE EXT SCH ×2 (08:00→20:00)
[2016-11-26] MEDS: CIPROFLOXACIN 500 MG TAB PO SCH ×2 (08:13→20:01)
[2016-11-26] MEDS: BUMETANIDE 1 MG TAB PO SCH (08:13)
[2016-11-26] MEDS: POTASSIUM CHLORIDE 20 MEQ TABCR PO SCH (08:13)
[2016-11-26] MEDS: LOSARTAN POTASSIUM 50 MG TAB PO SCH (08:13)
[2016-11-26] MEDS: ALFUZosin TAB 10 MG TAB PO SCH (08:14)
[2016-11-26] MEDS: PANTOprazole SOD 40 MG TAB PO SCH (08:14)
[2016-11-26] MEDS: FINASTERIDE 5 MG TAB PO SCH (08:14)
[2016-11-26] MEDS: MULTIVITAMIN TAB PO SCH (08:14)
[2016-11-26] MEDS: OXYCODONE HCL 10 MG TABCR (OXYCONTIN) PO SCH ×2 (08:16→20:01)
[2016-11-26] MEDS: INSULIN HUMAN REGULAR SC SCH ×4 (08:19→21:53)
[2016-11-26] MEDS: BICALUTAMIDE 50 MG TAB PO SCH (08:20)
[2016-11-26] MEDS ORDERED: CSD50 PO (08:51)
--- NOTE | 2016-11-26 08:55 | Discharge Instructions ---
Discharge Instructions Date of Service November 26, 2016. Admission Reason for Admission: Gross Hematuria Discharge Discharge Diagnosis / Problem: hematuria, urinary retention Discharge Goals Goal(s): Therapeutic intervention Activity Recommendations Activity Limitations: resume your previous activity . Instructions / Follow-Up Instructions / Follow-Up You have been treated in the hospital for difficulty urinating and blood in your urine. A Ufnk catheter has been inserted. This will stay in place until you follow up with urology Please follow-up with urology as scheduled Please also follow up with your primary care physician within one week The following changes/additions have been made to your medication list: -Begin Casodex 50 mg once daily -PLEASE STOP ASPIRIN -PLEASE STOP PLAVIX You should have repeat blood work (CBC and BMP) in 1 week Call your doctor or return to the emergency department if you have any of the following symptoms: -Fever of 101F or greater -severe lower abdominal pain -large amount of blood in urine -Persistent vomiting - Persistent diarrhea -Lethargy -Chest pain -Shortness of breath -severe dizziness -weakness on one side of your body Current Hospital Diet Patient's current hospital diet: Diabetes Type 2 Diet Discharge Diet Recommended Diet: AHA Diet (Heart Healthy), Diabetes Type 2 Diet Pending Studies Studies pending at discharge: no Laboratory Results Test 11/26/16 07:37 Bedside Glucose 174 mg/dl (70-99) Medical Emergencies . Who to Call and When: Medical Emergencies: If at any time you feel your situation is an emergency, please call 911 immediately. . Non-Emergent Contact Non-Emergency issues call your: Primary Care Provider . . "Provider Documentation" section prepared by Tricia Lala . VTE Core Measure Inpt VTE Proph given/why not?: SCD's, Contraindicated
--- NOTE | 2016-11-26 12:30 | Hospitalist Progress Note ---
Hospitalist Progress Note Date of Service November 26, 2016. Subjective Pt evaluation today including: conversation w/ patient, conversation w/ family , physical exam, chart review, lab review, review of studies, conversation w/ automotive internet sales consultant, review of inpatient medication list Patient reports intermittent severe pain in lower abdomen. He thinks that they are blockages associated with his urine. He is very nervous about going home. The CBI was clamped this morning. Urine has remained yellow/clear Additional Comments: 6 system review performed and negative unless otherwise noted Objective Vital Signs Date Time Temp Pulse Resp B/P Pulse Ox O2 Delivery O2 Flow Rate FiO2 11/26/16 08:00 Room Air 11/26/16 07:05 36.4 65 17 159/85 91 Room Air 11/26/16 00:07 36.7 61 18 125/75 91 Room Air 11/26/16 00:00 Room Air 11/25/16 20:00 Room Air 11/25/16 16:00 Room Air 11/25/16 14:39 36.5 60 20 109/66 93 Room Air Physical Exam General Appearance: no apparent distress Eyes: EOMI Neck: no JVD Respiratory/Chest: lungs clear Cardiovascular: regular rate, rhythm Abdomen: normal bowel sounds, non tender, soft Extremities: + pertinent finding (nonpitting edema noted in the left lower extremity) Neurologic/Psychiatric: no motor/sensory deficits, oriented x 3 Skin: warm/dry Laboratory Results Test 11/26/16 07:37 Bedside Glucose 174 mg/dl (70-99) Last 24 Hours Test 11/25/16 16:45 11/25/16 20:12 11/26/16 07:37 Bedside Glucose 194 mg/dl 244 mg/dl 174 mg/dl Assessment and Plan 81 year old male with gross hematuria and severe lower abdominal pain Gross hematuria - traumatic from catheter insertion vs. diverticula bleed vs bladder or prostate ca -CBI clamped this am-->still having severe intermittent pain. Urine clear -started on Casodex empirically -will d/w urology about possible inpt cystoscopy -Will try trial of oxybutynin BPH - Finasteride while inpt Coronary artery disease - holding ASA and plavix secondary to gross hematuria - Continue imdur, atenolol, losartan and atorvastatin Hypertension-BP stable - Continue outpatient medications: atenolol, HZCT, losartan, bumex Type 2 diabetes - holding metformin and glyburide -BSG q 6 h - Tighten Insulin sliding scale today DVT prophylaxis -TEDS, SCDs CODE STATUS -LEVEL I FULL CODE
[2016-11-26] MEDS: OXYBUTYNIN CHLORIDE 5 MG TAB PO PRN ×2 (15:24→21:47)
[2016-11-26] MEDS ORDERED: NURSING VERBAL MED ORDER ONE (15:30)
[2016-11-26 15:42] VITALS: BP 101/58; PULSE 56; TEMP 36.5; O2SAT 94
[2016-11-26] MEDS ORDERED: OXYBUTYNIN CHLORIDE 5 MG TAB PO SCH (20:00)
[2016-11-26] MEDS: ATORVASTATIN 40 MG TAB PO SCH (20:02)
[2016-11-26] MEDS: ISOSORBIDE MONONITRATE 60 MG TABCR PO SCH (20:02)
[2016-11-26] MEDS: ZOLPIDEM TARTRATE 5 MG TAB PO PRN (21:47)
[2016-11-26 23:59] VITALS: BP 122/67; PULSE 63; TEMP 36.4; O2SAT 92
[2016-11-27] MEDS: OXYBUTYNIN CHLORIDE 5 MG TAB PO PRN ×2 (06:08→11:24)
[2016-11-27 07:08] LABS: BASO % 0.4 %; BASO ABS # 0.03 K/uL (0-0.2); COMPLETE YES; EOS % 4.5 %; HEMATOCRIT 29.8 % (42-52); IG% 0.1 %; LYMPH % 27.3 %; LYMPH ABS # 1.87 K/uL (1.2-3.4); MEAN CELL VOLUME 94.6 fL (80-100); MEAN CORPUSCULAR HEMOGLOBIN 30.8 pg (25-34); MEAN CORPUSCULAR HGB CONC 32.6 g/dl (32-36); MEAN PLATELET VOLUME 9.8 fL (7.4-10.4); MONO % 9.8 %; NEUT % 57.9 %; PLATELET COUNT 239 K/uL (130-400); RED BLOOD COUNT 3.15 M/uL (4.7-6.1); WHITE BLOOD COUNT 6.86 K/uL (4.8-10.8)
[2016-11-27 07:36] LABS: BUN/CREATININE RATIO 23.8 (10-20); CALCIUM 8.2 mg/dl (8.5-10.1); CREATININE 1.2 mg/dl (0.60-1.40); POTASSIUM 3.7 mmol/L (3.5-5.1)
[2016-11-27 07:38] VITALS: BP 153/87; PULSE 74; TEMP 36.4; O2SAT 94
--- NOTE | 2016-11-27 07:59 | Progress Note ---
Subjective Date of Service: November 27, 2016. Subjective Pt evaluation today including: conversation w/ patient, chart review, lab review Voiding: kyle catheter in place (patent, draining clear, yellow urine with some sediment) 81 yo male with urinary retention and gross hematuria. Continues to have bladder spasms despite oxybutynin. Otherwise feels well. No hematuria or clots overnight. Problem List Medical Problems: (1) Cellulitis of left lower leg Status: Acute (2) Kyle catheter problem Status: Acute (3) Urinary retention Status: Acute (4) Urinary retention Status: Acute (5) Wound infection Status: Acute Review of Systems Constitutional: No chills, No fever Respiratory: No shortness of breath Cardiac: No chest pain Abdomen: No nausea, No pain, No vomiting Male : No hematuria Heme: No abnormal bleeding/bruising Objective Vital Signs Date Time Temp Pulse Resp B/P Pulse Ox O2 Delivery O2 Flow Rate FiO2 11/27/16 07:38 36.4 74 18 153/87 94 Room Air 11/26/16 23:59 36.4 63 18 122/67 92 Room Air 11/26/16 23:30 Room Air 11/26/16 16:00 Room Air 11/26/16 15:42 36.5 56 18 101/58 94 Room Air 11/26/16 08:00 Room Air Physical Exam General Appearance: no apparent distress, + obese Eyes: normal inspection ENT: hearing grossly normal Neck: no JVD Respiratory/Chest: no respiratory distress, no accessory muscle use Cardiovascular: no JVD Extremities: normal inspection Neurologic/Psychiatric: alert, normal mood/affect, oriented x 3 Skin: normal color Laboratory Results Last 24 Hours Test 11/26/16 11:30 11/26/16 16:40 11/26/16 20:00 11/27/16 06:48 Bedside Glucose 272 mg/dl 237 mg/dl 239 mg/dl White Blood Count 6.86 K/uL Red Blood Count 3.15 M/uL Hemoglobin 9.7 g/dL Hematocrit 29.8 % Mean Corpuscular Volume 94.6 fL Mean Corpuscular Hemoglobin 30.8 pg Mean Corpuscular Hemoglobin Concent 32.6 g/dl Platelet Count 239 K/uL Mean Platelet Volume 9.8 fL Neutrophils (%) (Auto) 57.9 % Lymphocytes (%) (Auto) 27.3 % Monocytes (%) (Auto) 9.8 % Eosinophils (%) (Auto) 4.5 % Basophils (%) (Auto) 0.4 % Neutrophils # (Auto) 3.97 K/uL Lymphocytes # (Auto) 1.87 K/uL Monocytes # (Auto) 0.67 K/uL Eosinophils # (Auto) 0.31 K/uL Basophils # (Auto) 0.03 K/uL RDW Standard Deviation 48.0 fL RDW Coefficient of Variation 14.0 % Immature Granulocyte % (Auto) 0.1 % Immature Granulocyte # (Auto) 0.01 K/uL Sodium Level 141 mmol/L Potassium Level 3.7 mmol/L Chloride Level 104 mmol/L Carbon Dioxide Level 31 mmol/L Anion Gap 6.0 mmol/L Blood Urea Nitrogen 29 mg/dl Creatinine 1.20 mg/dl Est Creatinine Clear Calc Drug Dose 63.0 ml/min Estimated GFR () 64.9 Estimated GFR (Non- 56.0 BUN/Creatinine Ratio 23.8 Random Glucose 149 mg/dl Calcium Level 8.2 mg/dl Assessment and Plan 1. Gross hematuria Hematuria resolved. No longer needing CBI. Remain off Plavix and ASA for now. Possible TURP this with Dr. Martinez. UC&S negative. Cytology negative for high grade urothelial carcinoma. Plan for outpatient cysto today at 12:30pm with Dr. Martinez. Please d/c pt home this morning so that he may attend this appt. 2. BPH, urinary retention Continue finasteride and alfuzosin. Pt previously failed 1 TOV. Will leave kyle in place for now. Possible TURP this 11-[address] Martinez as an outpatient. 3. Elevated PSA PSA of 14.1. The pt has been started on Casodex by Dr. Martinez. May consider outpatient prostate bx in the future. 4. 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 Obesity is the most likely cause his penis seems buried to him. A hydrocelectomy will not improve this problem. BPH the most likely cause for his urinary retention, and hydrocele is unrelated to this as well. Would not recommend an outpatient hydrocelectomy if not causing pain or significant swelling at this time. Pt OK for d/c home from [facility]. Plan for outpatient cysto at 1230 today. Discharge planning: home with home health
[2016-11-27] MEDS: LIDOCAINE HCL 2% JELLY 30 ML TUBE EXT SCH (08:00)
[2016-11-27] MEDS: CIPROFLOXACIN 500 MG TAB PO SCH (08:27)
[2016-11-27] MEDS: OXYCODONE HCL 10 MG TABCR (OXYCONTIN) PO SCH (08:27)
[2016-11-27] MEDS: BUMETANIDE 1 MG TAB PO SCH (08:27)
[2016-11-27] MEDS: FINASTERIDE 5 MG TAB PO SCH (08:27)
[2016-11-27] MEDS: PANTOprazole SOD 40 MG TAB PO SCH (08:27)
[2016-11-27] MEDS: POTASSIUM CHLORIDE 20 MEQ TABCR PO SCH (08:28)
[2016-11-27] MEDS: MULTIVITAMIN TAB PO SCH (08:28)
[2016-11-27] MEDS: LOSARTAN POTASSIUM 50 MG TAB PO SCH (08:28)
[2016-11-27] MEDS: ALFUZosin TAB 10 MG TAB PO SCH (08:28)
[2016-11-27] MEDS: INSULIN HUMAN REGULAR SC SCH ×2 (08:34→11:00)
[2016-11-27] MEDS: BICALUTAMIDE 50 MG TAB PO SCH (08:35)
[2016-11-27] MEDS ORDERED: DTR5 PO (11:13)
[2016-11-27 11:34] VITALS: BP 153/87; PULSE 74; TEMP 36.4; O2SAT 94
[2016-11-27] MEDS ORDERED: OXYBUTYNIN PO (16:30)
[2016-11-27] MEDS ORDERED: BICA50TA2 PO (16:30)
[2016-11-27] MEDS ORDERED: ASPI81TA28 PO (16:32)
[2016-11-27] MEDS ORDERED: CLOP1TAB15 PO (16:32)
--- NOTE | 2016-11-27 17:51 | Discharge Summary ---
Discharge Summary Date of Service November 27, 2016. Discharge Summary Admission Date: November 20, 2016 at 20:08 Discharge Date: November 26, 2016 Discharge Disposition: Home Principal Diagnosis: Gross hematuria Problems/Secondary Diagnoses: BPH Coronary artery disease Hypertension- Type 2 diabetes Immunizations: Have You Had Influenza Vaccine: No History of Tetanus Vaccine?: Unknown History of Pneumococcal: Yes Pneumococcal Date: Apr 26, 2004 History of Hepatitis B Vaccine: No Procedures: No Consultations: Urologist Medication Reconciliation Continued Medications: Alfuzosin Hcl (Uroxatral) 10 Mg Tab 10 MG PO QAM, TAB Atenolol (Atenolol) 50 Mg Tab 50 MG PO QAM Atorvastatin (Atorvastatin Calcium) 40 Mg Tab 40 MG PO HS Bumetanide (Bumetanide) 1 Mg Tab 2 MG PO QAM Calcium Carbonate (Antacid) (Antacid) 500 Mg Chw 250 MG PO BID Dutasteride (Avodart) 0.5 Mg Cap 0.5 MG PO QAM, CAP Esomeprazole Magnesium (Nexium) 40 Mg Capcr 40 MG PO QPM Glimepiride (Glimepiride) 2 Mg Tab 2 MG PO BID Kowtlclgnow-Ljupqvuynmx-Pzw C- (Glucosamine 1500 Complex) 1 Cap Cap 2 CAP PO DAILY Hydrochlorothiazide (Hydrochlorothiazide) 25 Mg Tab 25 MG PO QAM Isosorbide Mononitrate Ext Rel (Imdur Ext Rel) 120 Mg Ertab 120 MG PO QPM Losartan Potassium (Cozaar) 100 Mg Tab 100 MG PO QAM Metformin Hcl (Glucophage) 1,000 Mg Tab 1000 MG PO BID, TAB TAKE THIS MEDICATION WITH MORNING AND EVENING MEALS Metformin Hcl (Glucophage) 1,000 Mg Tab 500 MG PO WITH LUNCH, TAB TAKE HALF A TABLET (500 MG) DAILY WITH LUNCH Multivitamin (Multivitamin) Tab 1 TAB PO QAM Niacin (Niacin) 500 Mg Tab 1000 MG PO QPM Nitroglycerin (Nitrostat) 0.4 Mg Sub 0.4 MG UT UD PRN for Chest Pain, BTL Oxycodone HCl (Oxycodone HCl ER) 10 Mg Tab 10 MG PO BID Potassium Chloride (Potassium Chloride Er) 10 Meq Tab 10 MEQ PO QAM [place] ([place]) (Saw [place]) 450 Mg Cap 450 MG PO QAM Discontinued Medications: Aspirin (Aspirin Ec) 81 Mg Tab 81 MG PO DAILY Clopidogrel (Plavix) 75 Mg Tab 75 MG PO UD, TAB ON 11/21/2016 HOLD THIS MEDICATION UNTIL OTHERWISE DIRECTED TO TAKE BY DOCTOR Sulfamethoxazole-Trimethoprim (Bactrim Ds 800MG/160MG) 1 Tab Tab 1 TAB PO BID for 10 Days, #20 TAB PRESCRIBED 11/15/16, TAKE DIRECTED FOR 10 DAYS Discharge Exam Doing okay, out off bed to chair, complaining about spasm, comes and goes Review of Systems: Constitutional: No chills, No fatigue, No fever, No problem reported, No sweats, No weakness, No weight loss Eyes: No diplopia, No discharge, No eye pain, No problem reported, No redness, No worsening of vision ENT: No dental problems, No hearing loss, No nasal symptoms, No problem reported, No sore throat, No tinnitus, No trouble swallowing, No unusual epistaxis Respiratory: No cough, No dyspnea at rest, No dyspnea on exertion, No hemoptysis, No problem reported, No shortness of breath, No sputum, No wheezing Cardiovascular: No PND, No chest pain, No claudication, No edema, No orthopnea, No palpitations, No problem reported Abdomen: + problem reported (see the above commands), No GI bleeding, No constipation, No diarrhea, No nausea, No pain, No vomiting Musculoskeletal: No calf pain, No joint pain, No muscle pain, No problem reported, No swelling Genitourinary - Male: + dysuria Neurologic: No balance problems, No memory loss, No numbness/tingling, No paralysis, No problem reported, No vertigo, No weakness Psychiatric: No anhedonism, No anxiety, No depression symptoms, No insomnia , No problem reported, No substance abuse Endocrine: No excessive thirst, No excessive urination, No fatigue, No problem reported Hematologic / Lymphatic: No abnormal bleeding/bruising, No clotting problems , No night sweats, No problem reported, No swollen lymph nodes Integumentary: No bleeding, No color change, No itch, No new/changing skin lesions, No problem reported, No rash Physical Exam: General Appearance: WD/WN, no apparent distress, + pertinent finding ( pleasant and smiling) Eyes: normal inspection, PERRL, EOMI ENT: normal ENT inspection, hearing grossly normal, TMs normal Neck: supple, no adenopathy, thyroid normal Respiratory/Chest: chest non-tender, lungs clear, normal breath sounds, no respiratory distress, no accessory muscle use Cardiovascular: regular rate, rhythm, no edema, no gallop, no JVD, no murmur Abdomen / GI: normal bowel sounds, non tender, soft, + pertinent finding ( Funk catheter in place with normal color urine) Extremities: normal inspection, no calf tenderness, normal capillary refill , no pedal edema, normal range of motion Neurologic/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 diverticula bleed vs bladder or prostate ca , totally resolved -CBI clamped this am-->still having severe intermittent pain. Urine clear -started on Casodex empirically - urology planned outpatient cystoscopy -Is getting oxybutynin for the spasm, urology increased from twice a day to 3 times a day as needed BPH Coronary artery disease - holding ASA and plavix secondary to gross hematuria Hypertension-BP stable - Continue outpatient medications: atenolol, HZCT, losartan, bumex Type 2 diabetes - holding metformin and glyburide -BSG q 6 h - Tighten Insulin sliding scale today The above condition is stable, discharge plan will be per urology recommendation Discharge instruction You have been treated in the hospital for difficulty urinating and blood in your urine. A Funk catheter has been inserted. This will stay in place until you follow up with urology Please follow-up with urology as scheduled Please also follow up with your primary care physician within one week The following changes/additions have been made to your medication list: -Begin Casodex 50 mg once daily -PLEASE STOP ASPIRIN -PLEASE STOP PLAVIX You should have repeat blood work (CBC and BMP) in 1 week Call your doctor or return to the emergency department if you have any of the following symptoms: -Fever of 101F or greater -severe lower abdominal pain -large amount of blood in urine -Persistent vomiting - Persistent diarrhea -Lethargy -Chest pain -Shortness of breath -severe dizziness -weakness on one side of your body Please follow-up with urology as instructed Total Time Spent: Less than 30 minutes This includes examination of the patient, discharge planning, medication reconciliation, and communication with other providers. Discharge Instructions Please refer to the electronic Patient Visit Report (Discharge Instructions) for additional information. Additional Copies To Rush Martinez M.D.; Kori Parmar D.O.
[2017-03-18] MEDS ORDERED: OXYC1TAB3 PO (14:42)
== END 2016-11-27 12:13 | disposition home health service (06) | DRG 699 ==
LOC: ENRESERVTM → ENRESERVDT → C.EDB 17:27 → C.2T 20:08 → C.MS4W 11-21 11:47
PROVIDERS: ADMIT Hospitalist; ATTEND Hospitalist
PROC: 0TP Urinary System, Removal (ICD-10-PCS; principal; 2016-11-20)
PROC: 0T9B70Z Drainage of Bladder with Drainage Device, Via Natural or Artificial Opening (ICD-10-PCS; principal; 2016-11-20)
DX: T83.83XA Hemorrhage due to genitourinary prosthetic devices, implants and grafts, initial encounter (principal); S37.99XA Other injury of unspecified urinary and pelvic organ, initial encounter; Z68.41 Body mass index [BMI] 40.0-44.9, adult; R31.0 Gross hematuria; T83.091A Other mechanical complication of indwelling urethral catheter, initial encounter; C61 Malignant neoplasm of prostate; I10 Essential (primary) hypertension; E78.5 Hyperlipidemia, unspecified; I25.2 Old myocardial infarction; K21.9 Gastro-esophageal reflux disease without esophagitis; N40.1 Benign prostatic hyperplasia with lower urinary tract symptoms; N32.3 Diverticulum of bladder; E66.9 Obesity, unspecified; Z83.3 Family history of diabetes mellitus; Z79.82 Long term (current) use of aspirin; I25.10 Atherosclerotic heart disease of native coronary artery without angina pectoris; Y84.6 Urinary catheterization as the cause of abnormal reaction of the patient, or of later complication, without mention of misadventure at the time of the procedure; Z95.1 Presence of aortocoronary bypass graft; Y92.009 Unspecified place in unspecified non-institutional (private) residence as the place of occurrence of the external cause; Y92.239 Unspecified place in hospital as the place of occurrence of the external cause; R86.0 Abnormal level of enzymes in specimens from male genital organs; N43.3 Hydrocele, unspecified; Z80.42 Family history of malignant neoplasm of prostate; N48.83 Acquired buried penis; E11.9 Type 2 diabetes mellitus without complications

== ENCOUNTER 2016-11-29 05:31 | Observation (INO) | payer OTHER ==
[2016-11-26 13:33] VITALS: BMI 43.0
[2016-11-29] VITALS (9 sets, daily range): BP systolic 116–152; BP diastolic 63–80; PULSE 45–64; TEMP 36.4–36.9; O2SAT 93–98; Ht 172.7 cm; Wt 127.3 kg
[~2016-11-29] VITALS: Ht 172.7 cm; Wt 127.3 kg
[~2016-11-29 05:31] MED LIST changes: +AMR2 PO; -ATEN50TA8 PO; -ATOR-24 PO; +BICA50TA2 PO; +BMX1 PO; -BUME1TAB PO; +DUTA0.5C PO; -GLIM2TAB PO; -HYDR25TA4 PO; +HYDR25TA5 PO; +ISOS120T5 PO; -ISOS60TA25 PO; +LOSA100T65 PO; -LOSA1TAB38 PO; +LPT40 PO; +METF1000 PO; +NIAC1TAB5 PO; +NITR0.4S UT; +OXYBUTYNIN PO; +OXYC-738 PO; -OXYSR/10 PO; +POTA-74 PO; -POTA10CA28 PO; +TNR50 PO
[2016-11-29] MEDS ORDERED: GENTAMICIN INJ 160 MG in DEXTROSE 5% 100ML 100 ML IV SCH (06:00)
[2016-11-29] MEDS ORDERED: LACTATED RINGER'S 1000ML 1,000 ML IV SCH (06:00)
[2016-11-29] MEDS ORDERED: CIPROFLOXACIN / D5W 400 MG IV SCH (06:00)
[2016-11-29] MEDS ORDERED: PROPOFOL IV EMULSION 10 MG/ML 20 ML VIAL IV ONE ×2 (06:23→08:13)
[2016-11-29] MEDS ORDERED: LIDOCAINE HCL 2% 2 ML VIAL (20MG/ML) ONE (06:23)
[2016-11-29] MEDS ORDERED: ONDANSETRON INJ 2 MG/ML 2 ML VIAL ONE (06:23)
[2016-11-29] MEDS ORDERED: FENTANYL CITRATE INJ 50 MCG/1 ML 2 ML VIAL ONE (06:24)
[2016-11-29] MEDS ORDERED: BUPIVACAINE 0.5 % 5 MG/1 ML PF 10ML VIAL ONE (07:06)
[2016-11-29] MEDS ORDERED: MIDAZOLAM HCL 1 MG/ML 2ML VIAL ONE ×2 (07:17→07:58)
--- NOTE | 2016-11-29 07:20 | History & Physical Bridge Note ---
H&P Re-Evaluation Bridge Note: I have examined the patient, reviewed the History & Physical and in the interval since the performance of the History & Physical I have noted the following changes of clinical significance: No changes noted
[2016-11-29] MEDS ORDERED: HYDROmorphone INJ 1 MG/ML SYR IV PRN (09:30)
[2016-11-29] MEDS ORDERED: FENTANYL CITRATE INJ 50 MCG/1 ML 2 ML VIAL IV PRN (09:30)
[2016-11-29] MEDS ORDERED: EpHEDrine SULFATE INJ 50 MG/ML AMP IV PRN (09:30)
[2016-11-29] MEDS ORDERED: MEPERIDINE HCL 25 MG/ML CARP IV PRN (09:30)
[2016-11-29] MEDS ORDERED: ATROPINE SULFATE 0.1 MG/ML 5ML SYR IV PRN (09:30)
[2016-11-29] MEDS ORDERED: ONDANSETRON INJ 2 MG/ML 2 ML VIAL IV PRN ×2 (09:30→10:15)
[2016-11-29] MEDS ORDERED: LABETALOL HCL IV 5 MG/ML 20ML IV PRN (09:30)
[2016-11-29] MEDS ORDERED: EpHEDrine SULFATE 50MG/5ML SYR ONE (09:36)
--- NOTE | 2016-11-29 10:07 | [facility] Post Operative Brief Note ---
Immediate Operative Summary Operative Date November 29, 2016. Pre-Operative Diagnosis Benign Prostatic Hyperplasia, Urinary Obstruction, Urinary Retention. Post-Operative Diagnosis Same as preoperative Procedure(s) Performed Cystoscopy, Transurethral Resection Prostate, Transrectal Prostate Biopsy. Surgeon Patient Placement Coordinator Surgeon(s) None Estimated Blood Loss 50ml Findings bladder irritation significantly better than earlier this week False passage in bulbar urethra after attempting catheter placement Specimens [place] specimens A. Right [place] Prostate Drains [address] Anesthesia spinal Complication(s) false passage placing kyle at end of turp had to replace cystoscope and place [place] tip kyle over a wire
[2016-11-29 10:56] LABS: BASO % 0.5 %; BASO ABS # 0.03 K/uL (0-0.2); COMPLETE YES; EOS % 3.3 %; HEMATOCRIT 27.9 % (42-52); IG% 0.2 %; LYMPH % 26.4 %; LYMPH ABS # 1.68 K/uL (1.2-3.4); MEAN CELL VOLUME 94.9 fL (80-100); MEAN CORPUSCULAR HGB CONC 33.7 g/dl (32-36); MEAN PLATELET VOLUME 9.7 fL (7.4-10.4); MONO % 7.5 %; NEUT % 62.1 %; PLATELET COUNT 213 K/uL (130-400); RED BLOOD COUNT 2.94 M/uL (4.7-6.1); WHITE BLOOD COUNT 6.37 K/uL (4.8-10.8)
--- NOTE | 2016-11-29 10:59 | Anesthesiology Progress Note ---
Anesthesia Post Op Note Date & Time November 29, 2016 at 10:59 Vital Signs Pain Intensity: 0 Vital Signs Past 12 Hours Date Time Temp Pulse Resp B/P Pulse Ox O2 Delivery O2 Flow Rate FiO2 11/29/16 10:50 50 16 113/54 94 Nasal Cannula 3 11/29/16 10:40 52 16 110/56 94 Nasal Cannula 3 11/29/16 10:30 36.1 48 16 112/58 95 Nasal Cannula 3 11/29/16 10:20 46 16 119/57 96 Nasal Cannula 3 11/29/16 10:10 45 16 100/53 95 Nasal Cannula 3 11/29/16 10:04 36.3 54 18 100/57 97 Nasal Cannula 3 11/29/16 06:16 36.8 49 20 125/63 93 Room Air Notes Mental Status: alert / awake / arousable, participated in evaluation Pt Amnestic to Procedure: Yes Nausea / Vomiting: adequately controlled Pain: adequately controlled Airway Patency, RR, SpO2: stable & adequate BP & HR: stable & adequate Hydration State: stable & adequate Neuraxial Anesthesia: was administered, sensory block is resolving Anesthetic Complications: no major complications apparent
[2016-11-29] MEDS ORDERED: IV FLUIDS COMPLETED PRN (11:45)
[2016-11-29] MEDS: SODIUM CHLORIDE 0.9% 1000ML 1,000 ML IV SCH ×2 (12:23→22:14)
[2016-11-29] MEDS: HYDROCODONE/ACETAMOPHEN 5/325MG TAB PO PRN ×3 (13:51→23:52)
[2016-11-29] MEDS: MoRPHine SULFATE 2 MG/ML CARP IV PRN (16:09)
[2016-11-29] MEDS ORDERED: NURSING VERBAL MED ORDER ONE (18:30)
[2016-11-29] MEDS ORDERED: OXYBUTYNIN CHLORIDE 5 MG TAB PO PRN (19:00)
[2016-11-29] MEDS ORDERED: NITROGLYCERIN 0.4 MG SL PER TAB CHARGE SL PRN (19:00)
[2016-11-29] MEDS: AVODART~ORDER AWAITING ACTION SCH ×2 (19:51→23:48)
[2016-11-29] MEDS: CIPROFLOXACIN / D5W 400 MG in PREMIXED IN D5W 200 ML IV SCH (20:35)
[2016-11-29] MEDS: OXYCODONE HCL 10 MG TABCR (OXYCONTIN) PO SCH (20:37)
[2016-11-29] MEDS: CALCIUM CARBONATE 500 MG CHEWABLE PO SCH (20:38)
[2016-11-29] MEDS: ATORVASTATIN 40 MG TAB PO SCH (20:39)
[2016-11-29] MEDS: ISOSORBIDE MONONITRATE 60 MG TABCR PO SCH (20:39)
--- NOTE | 2016-11-29 20:53 | Medical Consult ---
Consultation Date of Consultation: November 29, 2016. Attending Physician: Rush Martinez M.D. Reason for Consultation: Medical management History of Present Illness 81 y/o M who is s/p TURP with Dr. Martinez. Pt states he passed bright red blood x2 this afternoon, but doing well otherwise. Ate without issue. Pt denies fever, SOB, chest pain, abd pain, n/v/c/d, LE pain or swelling. ROS as noted above, otherwise neg. Past Medical/Surgical History Medical Problems: (1) Cellulitis of left lower leg Status: Acute (2) Funk catheter problem Status: Acute (3) Urinary retention Status: Acute (4) Urinary retention Status: Acute (5) Wound infection Status: Acute Family History Diabetes mellitus FH: prostate cancer FHx: colon cancer Hypertension Social History Smoking Status: Former Smoker Drug Use: none Marital Status: Housing Status: lives with family Occupation Status: retired Allergies Coded Allergies: Adhesives (Verified Allergy, Unknown, DRAPES TORE PT'S SKIN OFF, 11/29/16) Bee Venom (Verified Allergy, Unknown, SWELLING, 11/29/16) Diclofenac (Verified Allergy, Unknown, 11/29/16) Naproxen (Verified Allergy, Unknown, 11/29/16) Amoxicillin (Verified Adverse Reaction, Unknown, CAUSES DIARRHEA, 11/16/16) Celecoxib (Verified Adverse Reaction, Unknown, gi bleed, 11/29/16) Current Inpatient Medications Current Inpatient Medications Medications (Trade) Dose Ordered Sig/Jez Route Start Time Stop Time Status Last Admin Dose Admin Sodium Chloride (Nss 1000ml) 1,000 ml @ 80 mls/hr [id number] IV 11/29/16 10:08 12/29/16 10:07 11/29/16 12:23 80 MLS/HR Ondansetron HCl (Zofran Inj) 4 mg Q4H PRN IV 11/29/16 10:15 12/29/16 10:14 Acetaminophen/ Hydrocodone Bitart ([place] 5/325 Tab) 1 tab Q4H PRN PO 11/29/16 10:15 12/13/16 10:14 11/29/16 18:30 1 TAB Morphine Sulfate 2 mg 2 mg Q1H PRN IV 11/29/16 10:15 12/13/16 10:14 11/29/16 16:09 2 MG Ciprofloxacin/ Dextrose/Prmx (Cipro / D5W/ Premixed D5W) 200 ml @ 100 mls/hr Q12 IV 11/29/16 21:00 11/30/16 20:59 11/29/16 20:35 100 MLS/HR Miscellaneous (Iv Fluids Completed) 1 ea PRN PRN N/A 11/29/16 11:45 11/29/17 11:44 Atenolol (Tenormin Tab) 50 mg QAM PO 11/30/16 09:00 12/30/16 08:59 Atorvastatin Calcium (Lipitor Tab) 40 mg PM PO 11/29/16 21:00 12/29/16 20:59 11/29/16 20:39 40 MG Bicalutamide (Casodex Tab) 50 mg QAM PO 11/30/16 09:00 12/30/16 08:59 Pantoprazole Sodium (Protonix Tab) 40 mg QAM PO 11/30/16 09:00 12/30/16 08:59 Glimepiride (Amaryl Tab) 2 mg BIDM PO 11/30/16 08:30 12/30/16 08:29 Hydrochlorothiazide (Hydrochlorothiazide Tab) 25 mg QAM PO 11/30/16 09:00 12/30/16 08:59 Isosorbide Mononitrate (Imdur Ext Rel Tab) 120 mg PM PO 11/29/16 21:00 12/29/16 20:59 11/29/16 20:39 120 MG Losartan Potassium (coZAAR TAB) 50 mg QAM PO 11/30/16 09:00 12/30/16 08:59 Metformin HCl (Glucophage Tab) 1,000 mg BID@0830,1745 PO 11/30/16 08:30 12/30/16 08:29 Metformin HCl (Glucophage Tab) 500 mg QDL PO 11/30/16 12:30 12/30/16 12:29 Nitroglycerin (Nitrostat Tab) 0.4 mg UD PRN SL 11/29/16 19:00 12/29/16 18:59 Oxycodone HCl (Oxycontin Tab) 10 mg Q12 PO 11/29/16 21:00 12/13/16 20:59 11/29/16 20:37 10 MG Potassium Chloride (Klor-Con M10) 10 meq QAM PO 11/30/16 09:00 12/30/16 08:59 Oxybutynin Chloride (Ditropan Tab) 5 mg TID PRN PO 11/29/16 19:00 12/29/16 18:59 Bumetanide (Bumex Tab) 2 mg QAM PO 11/30/16 09:00 12/30/16 08:59 Calcium Carbonate (Tums Chew Tab) 150 mg BID PO 11/29/16 21:00 12/29/16 20:59 11/29/16 20:38 150 MG Miscellaneous Information (Order Awaiting Action) 1 ea QS N/A 11/29/16 20:00 12/29/16 19:59 Physical Exam Date Time Temp Pulse Resp B/P Pulse Ox O2 Delivery O2 Flow Rate FiO2 11/29/16 16:00 93 Room Air 11/29/16 15:40 36.9 58 16 136/80 93 Room Air 11/29/16 14:00 36.5 64 16 124/72 95 3.0 11/29/16 13:00 36.4 52 18 129/72 95 Nasal Cannula 3.0 11/29/16 12:03 36.4 49 16 120/64 97 3.0 11/29/16 11:35 45 16 119/70 98 3.0 11/29/16 11:00 Nasal Cannula 3.0 11/29/16 11:00 36.5 52 18 116/66 94 Nasal Cannula 3.0 11/29/16 11:00 94 Nasal Cannula 3.0 11/29/16 10:50 50 16 113/54 94 Nasal Cannula 3 11/29/16 10:40 52 16 110/56 94 Nasal Cannula 3 11/29/16 10:30 36.1 48 16 112/58 95 Nasal Cannula 3 11/29/16 10:20 46 16 119/57 96 Nasal Cannula 3 11/29/16 10:10 45 16 100/53 95 Nasal Cannula 3 11/29/16 10:04 36.3 54 18 100/57 97 Nasal Cannula 3 11/29/16 06:16 36.8 49 20 125/63 93 Room Air General Appearance: WD/WN, no apparent distress Respiratory/Chest: normal breath sounds, no respiratory distress Cardiovascular: regular rate, rhythm, no edema Abdomen/GI: non tender, soft Extremities/Musculoskelatal: no calf tenderness, no pedal edema Neurologic/Psych: alert, normal mood/affect, oriented x 3 Skin: normal color, warm/dry Laboratory Results Last 24 Hours Test 11/29/16 05:55 11/29/16 10:09 11/29/16 10:40 11/29/16 11:51 Bedside Glucose 180 mg/dl 218 mg/dl 198 mg/dl White Blood Count 6.37 K/uL Red Blood Count 2.94 M/uL Hemoglobin 9.4 g/dL Hematocrit 27.9 % Mean Corpuscular Volume 94.9 fL Mean Corpuscular Hemoglobin 32.0 pg Mean Corpuscular Hemoglobin Concent 33.7 g/dl Platelet Count 213 K/uL Mean Platelet Volume 9.7 fL Neutrophils (%) (Auto) 62.1 % Lymphocytes (%) (Auto) 26.4 % Monocytes (%) (Auto) 7.5 % Eosinophils (%) (Auto) 3.3 % Basophils (%) (Auto) 0.5 % Neutrophils # (Auto) 3.96 K/uL Lymphocytes # (Auto) 1.68 K/uL Monocytes # (Auto) 0.48 K/uL Eosinophils # (Auto) 0.21 K/uL Basophils # (Auto) 0.03 K/uL RDW Standard Deviation 48.4 fL RDW Coefficient of Variation 14.0 % Immature Granulocyte % (Auto) 0.2 % Immature Granulocyte # (Auto) 0.01 K/uL Test 11/29/16 17:11 Bedside Glucose 203 mg/dl Assessment & Plan 81 y/o M who was admitted earlier today s/p TURP s/p TURP: as per urology resume anticoagulation as their discretion DM: Tolerating PO without issue Resume home PO meds No current insulin use HTN/CAD: resume home meds anticoags on hold s/p procedure, these should be resumed as soon as possible given SC hx
[2016-11-29] MEDS ORDERED: METFORMIN HCL 500 MG TAB PO SCH (21:00)
[2016-11-29] MEDS ORDERED: NITROGLYCERIN 0.4 MG SL PER TAB CHARGE UT PRN (21:00)
[2016-11-29] MEDS ORDERED: GLIMEPIRIDE 2 MG TAB PO SCH (21:00)
[2016-11-29] MEDS ORDERED: OXYCODONE HCL 10 MG TABCR (OXYCONTIN) PO SCH (21:00)
[2016-11-29] MEDS ORDERED: OXYBUTYNIN 5 MG PO PRN (21:00)
[2016-11-29] MEDS ORDERED: ISOSORBIDE MONONITRATE 60 MG TABCR PO SCH (21:00)
[2016-11-29] MEDS ORDERED: CALCIUM CARBONATE 500 MG CHEWABLE PO SCH (21:00)
[2016-11-29] MEDS ORDERED: NON-FORMULARY MEDICATION (Esomeprazole Magnesium (Nexium) 40 MG) PO SCH (21:00)
[2016-11-29] MEDS ORDERED: ATORVASTATIN 40 MG TAB PO SCH (21:00)
[2016-11-29] MEDS ORDERED: INSULIN ASPART 100 UNITS/ML 3 ML PEN SC ONE (22:00)
[2016-11-29] MEDS ORDERED: GLUCAGON FOR INJ 1 MG VIAL SQ PRN (22:15)
[2016-11-29] MEDS ORDERED: DEXTROSE 50% 50 ML SYR IV PRN (22:15)
[2016-11-29] MEDS ORDERED: GLUCOSE 40% GEL 15 GM TUBE PO PRN (22:15)
[2016-11-29] MEDS ORDERED: GLUCOSE 10 TABS/TUBE PO PRN (22:15)
[2016-11-30] MEDS: MoRPHine SULFATE 2 MG/ML CARP IV PRN ×3 (01:21→11:32)
[2016-11-30 03:40] VITALS: BP 135/75; PULSE 68; TEMP 36.4; O2SAT 94
[2016-11-30] MEDS: HYDROCODONE/ACETAMOPHEN 5/325MG TAB PO PRN ×5 (04:15→23:35)
--- NOTE | 2016-11-30 07:46 | OPERATIVE REPORT ---
DATE OF OPERATION: 11/29/2016 PREOPERATIVE DIAGNOSIS: Urinary retention with history of gross hematuria and elevated PSA and history of catheter trauma. POSTOPERATIVE DIAGNOSIS: Urinary retention with history of gross hematuria and elevated PSA. PROCEDURE PERFORMED: Cystoscopy, transrectal biopsy of the prostate, transurethral resection of the prostate. SURGEON: Rush Martinez MD ANESTHESIA: Spinal with sedation. INDICATIONS: The patient is an 81-year-old male who has a long history of an elevated PSA, question of BPH, previous negative biopsies with no PSA until recently, on long-term finasteride. His PSA was 14 or 28 adjusted. He also developed retention which required catheterization. He failed a voiding trial and had to go back to the Emergency Room, and after replacement of his catheter several days later, he developed severe gross hematuria. The patient is on Plavix. This hematuria required hospitalization, and we stopped the Plavix, and eventually, the bleeding stopped. The patient was discharged to home, came to the office and had a cystoscopy and did not have any definite tumor and had what appeared to be catheter trauma. Because of his elevated PSA, we scheduled him for an attempted ultrasound and biopsy prior to a transurethral resection of the prostate. Because the patient could not tolerate the catheter with Plavix without bleeding, the catheter posed a life-threatening problem for the patient. We agreed to do the procedure, and he knows he is going to need to be off Plavix for several weeks post procedure, but there did not appear to be any choice in the matter. The patient understood the risks and agreed to proceed. DESCRIPTION OF THE PROCEDURE: The patient was taken to the operating room. He had Venodyne stockings placed and was given preoperative gentamicin and Cipro. He had a spinal anesthesia administered. He was placed in dorsal lithotomy position. Unfortunately, the sonogram that we had did not have the proper probe. It was a new probe and the machine was old and did not function properly. The other sonogram machine was then used in another room for brachytherapy, so I did several biopsies transrectally, but he was having some bleeding from this, and so I decided that this was not the primary goal and to terminate this and did proceed to the TURP. I did pass a resectoscope with a 24-Bhutanese resectoscope with an obturator. The bladder did not appear to have anywhere near the catheter trauma, so I decided not to do a biopsy as it appeared that most of the catheter trauma was resolving. I then proceeded to the transurethral resection of the prostate with bipolar button. After an hour and half of doing this procedure, the patient did have a channel from the verumontanum into the bladder. It was clear that more tissue could be taken, but I estimated his prostate to be over 120 g and it would have required more time. I felt that the spinal began to wear off, and I did have good control of the bleeding, so again I could see the good channel from the verumontanum into the bladder and terminated the procedure. I attempted to pass a 22-Bhutanese Funk catheter because the patient did not appear to have a severe bladder neck, but unfortunately, it appeared not to be placed properly and he began to have some bleeding around the catheter, so I was concerned that the catheter had undermined either the trigone or created a false passage. It did create a false passage in the bulbar urethra. I passed the scope into the bladder, passed a wire through into the bladder and then created a Councill tip catheter with a pole punch and passed the catheter into the bladder, got good flow of urine that was relatively clear and then transferred the patient to the recovery room in stable condition. Estimated blood loss initially was 50 mL, but he last another 100 mL from the false passage that was created by the attempted catheter placement without the guidewire. I attest to the content of the Intraoperative Record and any orders documented therein. Any exceptio ns are noted below.
[2016-11-30 08:12] VITALS: BP 144/75; PULSE 68; TEMP 36.6; O2SAT 93
--- NOTE | 2016-11-30 08:26 | Anesthesiology Progress Note ---
Anesthesia Post Op Note Date & Time November 30, 2016 at 08:26 Vital Signs Pain Intensity: 4.0 Vital Signs Past 12 Hours Date Time Temp Pulse Resp B/P Pulse Ox O2 Delivery O2 Flow Rate FiO2 11/30/16 08:12 36.6 68 16 144/75 93 Room Air 11/30/16 03:40 36.4 68 18 135/75 94 Room Air 11/29/16 23:45 Room Air 11/29/16 23:00 36.9 64 16 152/78 93 Room Air Notes Mental Status: alert / awake / arousable, participated in evaluation Pt Amnestic to Procedure: Yes Nausea / Vomiting: adequately controlled Pain: adequately controlled Airway Patency, RR, SpO2: stable & adequate BP & HR: stable & adequate Hydration State: stable & adequate Neuraxial Anesthesia: was administered, sensory block resolved Anesthetic Complications: no major complications apparent
[2016-11-30] MEDS ORDERED: NON-FORMULARY MEDICATION (Dutasteride (Avodart) 0.5 MG) PO SCH (09:00)
[2016-11-30] MEDS ORDERED: BUMETANIDE 1 MG TAB PO SCH (09:00)
[2016-11-30] MEDS ORDERED: BICALUTAMIDE 50 MG TAB PO SCH (09:00)
[2016-11-30] MEDS ORDERED: PANTOprazole SOD 40 MG TAB PO SCH ×2 (09:00→21:00)
[2016-11-30] MEDS ORDERED: LOSARTAN POTASSIUM 50 MG TAB PO SCH (09:00)
[2016-11-30] MEDS ORDERED: METFORMIN HCL 500 MG TAB PO SCH (09:00)
[2016-11-30] MEDS ORDERED: NON-FORMULARY MEDICATION (Potassium Chloride (Potassium Chloride Er) 10 MEQ) PO SCH (09:00)
[2016-11-30] MEDS ORDERED: HYDROCHLOROTHIAZIDE 25 MG TAB PO SCH (09:00)
[2016-11-30] MEDS: MULTIVITAMIN TAB PO SCH (09:30)
[2016-11-30] MEDS: AVODART~ORDER AWAITING ACTION SCH ×3 (09:31→23:26)
[2016-11-30] MEDS: POTASSIUM CHLORIDE 10 MEQ TABCR PO SCH (09:31)
[2016-11-30] MEDS: HYDROCHLOROTHIAZIDE 25 MG TAB PO SCH (09:32)
[2016-11-30] MEDS: METFORMIN HCL 500 MG TAB PO SCH ×3 (09:33→18:31)
[2016-11-30] MEDS: BUMETANIDE 1 MG TAB PO SCH (09:34)
[2016-11-30] MEDS: LOSARTAN POTASSIUM 50 MG TAB PO SCH (09:34)
[2016-11-30] MEDS: GLIMEPIRIDE 2 MG TAB PO SCH ×2 (09:35→18:30)
[2016-11-30] MEDS: CIPROFLOXACIN / D5W 400 MG in PREMIXED IN D5W 200 ML IV SCH (09:36)
[2016-11-30] MEDS: CALCIUM CARBONATE 500 MG CHEWABLE PO SCH ×2 (09:36→20:57)
[2016-11-30] MEDS: BICALUTAMIDE 50 MG TAB PO SCH (09:47)
[2016-11-30] MEDS: INSULIN ASPART 100 UNITS/ML 3 ML PEN SC SCH ×4 (09:47→20:55)
[2016-11-30] MEDS: OXYCODONE HCL 10 MG TABCR (OXYCONTIN) PO SCH ×2 (09:48→20:55)
[2016-11-30] MEDS: SODIUM CHLORIDE 0.9% 1000ML 1,000 ML IV SCH (09:49)
[2016-11-30] MEDS ORDERED: NURSING VERBAL MED ORDER ONE (10:00)
--- NOTE | 2016-11-30 10:27 | Progress Note ---
Subjective Date of Service: November 30, 2016. Subjective Pt evaluation today including: conversation w/ patient, physical exam, chart review, lab review Voiding: kyle catheter in place 81 year old male POD #[address] Martinez. Hx of gross hematuria d/t BPH in need of TURP. Kyle intact draining lama urine - no clots. Otherwise doing well post op. Tolerating diet. Not ambulating much- BLE edema normal for pt. AFVSS. He has been off of his plavix Problem List Medical Problems: (1) Cellulitis of left lower leg Status: Acute (2) Kyle catheter problem Status: Acute (3) Urinary retention Status: Acute (4) Urinary retention Status: Acute (5) Wound infection Status: Acute Review of Systems Constitutional: No chills, No fever Eyes: No worsening of vision ENT: No hearing loss Respiratory: No cough, No shortness of breath Cardiac: No chest pain Abdomen: No nausea, No pain Musculoskeletal: No joint pain Male : + see HPI Neurologic: No memory loss, No weakness Psychiatric: No depression symptoms Heme: + see HPI Endo: No fatigue Skin: No rash Objective Vital Signs Date Time Temp Pulse Resp B/P Pulse Ox O2 Delivery O2 Flow Rate FiO2 11/30/16 08:12 36.6 68 16 144/75 93 Room Air 11/30/16 03:40 36.4 68 18 135/75 94 Room Air 11/29/16 23:45 Room Air 11/29/16 23:00 36.9 64 16 152/78 93 Room Air 11/29/16 16:00 93 Room Air 11/29/16 15:40 36.9 58 16 136/80 93 Room Air 11/29/16 14:00 36.5 64 16 124/72 95 3.0 11/29/16 13:00 36.4 52 18 129/72 95 Nasal Cannula 3.0 11/29/16 12:03 36.4 49 16 120/64 97 3.0 11/29/16 11:35 45 16 119/70 98 3.0 11/29/16 11:00 Nasal Cannula 3.0 11/29/16 11:00 36.5 52 18 116/66 94 Nasal Cannula 3.0 11/29/16 11:00 94 Nasal Cannula 3.0 11/29/16 10:50 50 16 113/54 94 Nasal Cannula 3 11/29/16 10:40 52 16 110/56 94 Nasal Cannula 3 11/29/16 10:30 36.1 48 16 112/58 95 Nasal Cannula 3 11/29/16 10:20 46 16 119/57 96 Nasal Cannula 3 Physical Exam General Appearance: WD/WN, no apparent distress Eyes: normal inspection ENT: hearing grossly normal Neck: no JVD Respiratory/Chest: no respiratory distress, no accessory muscle use Abdomen: soft Extremities: non-tender, + pedal edema, + swelling Neurologic/Psychiatric: alert, normal mood/affect, oriented x 3 Skin: normal color, warm/dry Laboratory Results Last 24 Hours Test 11/29/16 10:40 11/29/16 11:51 11/29/16 17:11 11/29/16 21:02 White Blood Count 6.37 K/uL Red Blood Count 2.94 M/uL Hemoglobin 9.4 g/dL Hematocrit 27.9 % Mean Corpuscular Volume 94.9 fL Mean Corpuscular Hemoglobin 32.0 pg Mean Corpuscular Hemoglobin Concent 33.7 g/dl Platelet Count 213 K/uL Mean Platelet Volume 9.7 fL Neutrophils (%) (Auto) 62.1 % Lymphocytes (%) (Auto) 26.4 % Monocytes (%) (Auto) 7.5 % Eosinophils (%) (Auto) 3.3 % Basophils (%) (Auto) 0.5 % Neutrophils # (Auto) 3.96 K/uL Lymphocytes # (Auto) 1.68 K/uL Monocytes # (Auto) 0.48 K/uL Eosinophils # (Auto) 0.21 K/uL Basophils # (Auto) 0.03 K/uL RDW Standard Deviation 48.4 fL RDW Coefficient of Variation 14.0 % Immature Granulocyte % (Auto) 0.2 % Immature Granulocyte # (Auto) 0.01 K/uL Bedside Glucose 198 mg/dl 203 mg/dl 262 mg/dl Assessment and Plan S/P TURP Kyle with hematuria. No clots Per Dr. Martinez will keep to monitor blood in urine. Will be d/c home with kyle- TOV in office in 10 days- our office will call for appt Continue to stay off Plavix until seen by Dr. Martinez. Ok to restart ASA 81 mg if urine remains clear for 7 days. Will d/c home on macrodantin for 10 days. Encourage ambulation. Appreciate hospitalist input for diabetes and resume home meds care. Hopeful for discharge tomorrow.
--- NOTE | 2016-11-30 13:45 | Progress Note ---
Subjective Date of Service: November 30, 2016. Subjective Pt evaluation today including: conversation w/ patient, conversation w/ family , physical exam, chart review, lab review, review of studies, conversation w/ property consultant, review of inpatient medication list Doing well, sitting up for lunch, no complaining, Kyle in place, no blood clot , report has one time spasm in this morning when inquiry Problem List Medical Problems: (1) Cellulitis of left lower leg Status: Acute (2) Kyle catheter problem Status: Acute (3) Urinary retention Status: Acute (4) Urinary retention Status: Acute (5) Wound infection Status: Acute Review of Systems Constitutional: No chills, No fatigue, No fever, No problem reported, No sweats , No weakness, No weight loss Eyes: No diplopia, No discharge, No eye pain, No redness, No worsening of vision ENT: No dental problems, No hearing loss, No nasal symptoms, No sore throat, No tinnitus, No trouble swallowing, No unusual epistaxis Respiratory: No cough, No dyspnea at rest, No dyspnea on exertion, No hemoptysis, No shortness of breath, No sputum, No wheezing Cardiac: No PND, No chest pain, No claudication, No edema, No orthopnea, No palpitations Abdomen: No constipation, No diarrhea, No nausea, No pain, No vomiting Musculoskeletal: No calf pain, No joint pain, No muscle pain, No swelling Male : No dysuria, No hematuria, No incontinence, No nocturia more than once/ night, No slowing stream, No urinary frequency Neurologic: No balance problems, No memory loss, No numbness/tingling, No paralysis, No vertigo, No weakness Psychiatric: No anhedonism, No anxiety, No depression symptoms, No insomnia, No substance abuse Heme: No abnormal bleeding/bruising, No clotting problems, No night sweats, No swollen lymph nodes Endo: No excessive thirst, No excessive urination, No fatigue Skin: No bleeding, No color change, No itch, No new/changing skin lesions, No rash Objective Vital Signs Date Time Temp Pulse Resp B/P Pulse Ox O2 Delivery O2 Flow Rate FiO2 11/30/16 08:12 36.6 68 16 144/75 93 Room Air 11/30/16 07:21 Room Air 11/30/16 03:40 36.4 68 18 135/75 94 Room Air 11/29/16 23:45 Room Air 11/29/16 23:00 36.9 64 16 152/78 93 Room Air 11/29/16 16:00 93 Room Air 11/29/16 15:40 36.9 58 16 136/80 93 Room Air 11/29/16 14:00 36.5 64 16 124/72 95 3.0 Physical Exam General Appearance: WD/WN, no apparent distress, + obese, + pertinent finding ( mild pale) Eyes: normal inspection, PERRL, EOMI, sclerae normal ENT: normal ENT inspection, hearing grossly normal, pharynx normal Neck: supple, no adenopathy, thyroid normal, no JVD, no carotid bruits, trachea midline Respiratory/Chest: chest non-tender, lungs clear, normal breath sounds, no respiratory distress, no accessory muscle use Cardiovascular: regular rate, rhythm, no edema, no gallop, no JVD, no murmur Abdomen: normal bowel sounds, non tender, soft, no organomegaly, no pulsatile mass, + pertinent finding (Kyle in place) Extremities: normal range of motion, non-tender, normal inspection, no pedal edema, no calf tenderness, normal capillary refill, pelvis stable Neurologic/Psychiatric: 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 Martinez will keep to monitor blood in urine. Will be d/c home with kyle- TOV in office in 10 days Continue to stay off Plavix until seen by Dr. Martinez. Ok to restart ASA 81 mg if urine remains clear for 7 days. Urologist of November plan d/c home on macrodantin for 10 days. DM: Tolerating PO without issue Resume home PO meds No current insulin use HTN/CAD/hx of [place] : resume home meds Discussed with patient and , SCD for DVT prophylaxis Continued [facility] stay due to: home environment unsafe for pt Discharge planning: home
[2016-11-30 15:52] VITALS: BP 112/53; PULSE 62; TEMP 37; O2SAT 92
[2016-11-30] MEDS: ISOSORBIDE MONONITRATE 60 MG TABCR PO SCH (20:56)
[2016-11-30] MEDS: ATORVASTATIN 40 MG TAB PO SCH (20:56)
[2016-11-30 22:55] VITALS: BP 121/78; PULSE 56; TEMP 36.4; O2SAT 92
[2016-12-01 05:56] LABS: BASO % 0.6 %; BASO ABS # 0.05 K/uL (0-0.2); COMPLETE YES; EOS % 4.8 %; HEMATOCRIT 29.6 % (42-52); IG% 0.1 %; LYMPH % 24.7 %; LYMPH ABS # 1.94 K/uL (1.2-3.4); MEAN CELL VOLUME 95.8 fL (80-100); MEAN CORPUSCULAR HGB CONC 33.4 g/dl (32-36); MEAN PLATELET VOLUME 10.1 fL (7.4-10.4); MONO % 10.7 %; NEUT % 59.1 %; PLATELET COUNT 271 K/uL (130-400); RED BLOOD COUNT 3.09 M/uL (4.7-6.1); WHITE BLOOD COUNT 7.84 K/uL (4.8-10.8)
[2016-12-01 06:33] LABS: BUN/CREATININE RATIO 15.5 (10-20); CALCIUM 8.3 mg/dl (8.5-10.1); CREATININE 1.2 mg/dl (0.60-1.40); MAGNESIUM 1.7 mg/dl (1.8-2.4); POTASSIUM 3.2 mmol/L (3.5-5.1)
[2016-12-01] MEDS: METFORMIN HCL 500 MG TAB PO SCH ×2 (07:30→11:48)
[2016-12-01] MEDS: HYDROCHLOROTHIAZIDE 25 MG TAB PO SCH (07:30)
[2016-12-01] MEDS: MULTIVITAMIN TAB PO SCH (07:30)
[2016-12-01] MEDS: GLIMEPIRIDE 2 MG TAB PO SCH (07:31)
[2016-12-01] MEDS: BICALUTAMIDE 50 MG TAB PO SCH (07:33)
[2016-12-01] MEDS: LOSARTAN POTASSIUM 50 MG TAB PO SCH (07:33)
[2016-12-01] MEDS: POTASSIUM CHLORIDE 10 MEQ TABCR PO SCH (07:33)
[2016-12-01] MEDS: CALCIUM CARBONATE 500 MG CHEWABLE PO SCH (07:34)
[2016-12-01] MEDS: BUMETANIDE 1 MG TAB PO SCH (07:34)
[2016-12-01] MEDS: AVODART~ORDER AWAITING ACTION SCH (07:39)
[2016-12-01] MEDS: OXYCODONE HCL 10 MG TABCR (OXYCONTIN) PO SCH (07:39)
[2016-12-01 07:59] VITALS: BP 175/91; PULSE 68; TEMP 36.9; O2SAT 92
[2016-12-01] MEDS ORDERED: POTASSIUM CHLORIDE 10 MEQ TABCR PO STA (08:03)
[2016-12-01] MEDS ORDERED: CIPR-255 PO (08:43)
[2016-12-01] MEDS ORDERED: MAGNESIUM SULFATE 1GM / D5W 1 GM in PREMIXED IN D5W 100 ML IV ONE (08:45)
--- NOTE | 2016-12-01 08:45 | Discharge Instructions ---
Discharge Instructions Date of Service December 01, 2016. Admission Reason for Admission: Benign Prostatic Hypertrophy Discharge Discharge Diagnosis / Problem: BPH s/p TURP Discharge Goals Goal(s): Improve function, Improve disease control, Therapeutic intervention Activity Recommendations Activity Limitations: per Instructions/Follow-up section Lifting Limitations: no more than 25 pounds, gradually increase as tolerated ( over the next 5 days) Exercise/Sports Limitations: rest today, gradually increase as tolerated (over the next 5 days) May Resume Sexual Activity: after follow-up appointment Shower/Bathe: tomorrow (no tub bath) Driving or Machine Use: resume 3 days after discharge . Instructions / Follow-Up Instructions / Follow-Up Funk to gravity as instructed Current Hospital Diet Hospital Diet(s): Diabetes Type 2 Diet Discharge Diet Recommended Diet: Regular Diet (good fluid intake) Procedures Procedures Performed: Cystoscopy, Transurethral Resection Prostate, Transrectal Prostate Biopsy. Pending Studies Studies pending at discharge: yes List of pending studies: Path report Medical Emergencies . Who to Call and When: Medical Emergencies: If at any time you feel your situation is an emergency, please call 911 immediately. . Non-Emergent Contact Non-Emergency issues call your: Urologist Call Non-Emergent contact if: you have a fever, temperature is above 101, your pain is not controlled, your pain is worsening, your pain is unusual for you, your pain is concerning you, wound has increased drainage, wound has increased redness, you have any medication questions . . "Provider Documentation" section prepared by Adam Montes. . VTE Core Measure Inpt VTE Proph given/why not?: SCD's
--- NOTE | 2016-12-01 08:49 | Progress Note ---
Subjective Date of Service: December 01, 2016. Subjective Pt evaluation today including: conversation w/ patient, physical exam, chart review, lab review, review of inpatient medication list Pain: Denies PO Intake: Dani reg diet Voiding: kyle catheter in place (urine clear yellow) 81 yo male POD#2 s/p TURP and prostate biopsy. He is doing well - comfortable, dani reg diet, ambulatory and urine is completely clear. No new complaints, past records reviewed. Problem List Medical Problems: (1) Cellulitis of left lower leg Status: Acute (2) Kyle catheter problem Status: Acute (3) Urinary retention Status: Acute (4) Urinary retention Status: Acute (5) Wound infection Status: Acute Review of Systems Constitutional: No chills, No fever Eyes: No worsening of vision ENT: No hearing loss, No sore throat Respiratory: No shortness of breath, No wheezing Cardiac: No chest pain Abdomen: No nausea, No vomiting Male : + see HPI, No hematuria Neurologic: No memory loss, No weakness Psychiatric: No depression symptoms Endo: No excessive thirst Skin: No new/changing skin lesions Objective Vital Signs Date Time Temp Pulse Resp B/P Pulse Ox O2 Delivery O2 Flow Rate FiO2 12/01/16 07:59 36.9 68 18 175/91 92 Room Air 11/30/16 23:30 Room Air 11/30/16 22:55 36.4 56 18 121/78 92 Room Air 11/30/16 15:52 37.0 62 18 112/53 92 Room Air 11/30/16 15:10 Room Air Physical Exam General Appearance: no apparent distress, + obese Eyes: normal inspection ENT: normal ENT inspection, hearing grossly normal Neck: supple, no adenopathy Respiratory/Chest: no respiratory distress, no accessory muscle use Cardiovascular: no JVD Abdomen: non tender, soft Extremities: non-tender Neurologic/Psychiatric: alert, oriented x 3 Skin: normal color Laboratory Results Last 24 Hours Test 11/30/16 12:21 11/30/16 17:16 11/30/16 20:39 12/01/16 05:30 Bedside Glucose 227 mg/dl 80 mg/dl 149 mg/dl White Blood Count 7.84 K/uL Red Blood Count 3.09 M/uL Hemoglobin 9.9 g/dL Hematocrit 29.6 % Mean Corpuscular Volume 95.8 fL Mean Corpuscular Hemoglobin 32.0 pg Mean Corpuscular Hemoglobin Concent 33.4 g/dl Platelet Count 271 K/uL Mean Platelet Volume 10.1 fL Neutrophils (%) (Auto) 59.1 % Lymphocytes (%) (Auto) 24.7 % Monocytes (%) (Auto) 10.7 % Eosinophils (%) (Auto) 4.8 % Basophils (%) (Auto) 0.6 % Neutrophils # (Auto) 4.62 K/uL Lymphocytes # (Auto) 1.94 K/uL Monocytes # (Auto) 0.84 K/uL Eosinophils # (Auto) 0.38 K/uL Basophils # (Auto) 0.05 K/uL RDW Standard Deviation 49.3 fL RDW Coefficient of Variation 14.2 % Immature Granulocyte % (Auto) 0.1 % Immature Granulocyte # (Auto) 0.01 K/uL Sodium Level 140 mmol/L Potassium Level 3.2 mmol/L Chloride Level 102 mmol/L Carbon Dioxide Level 31 mmol/L Anion Gap 7.0 mmol/L Blood Urea Nitrogen 19 mg/dl Creatinine 1.20 mg/dl Est Creatinine Clear Calc Drug Dose 61.7 ml/min Estimated GFR () 64.9 Estimated GFR (Non- 56.0 BUN/Creatinine Ratio 15.5 Random Glucose 127 mg/dl Calcium Level 8.3 mg/dl Magnesium Level 1.7 mg/dl Test 12/01/16 08:18 Bedside Glucose 135 mg/dl Assessment and Plan A/P 81 yo male POD#2 s/p TURP and PBx Doing well Stable for DC home with kyle in place Outpatient TOV in place with Dr. Martinez, hold Plavix until Dr. Martinez clears him Rx for Cipro, short postop course. Has pain meds and Pyridium at home Discharge planning: home
[2016-12-01] MEDS: INSULIN ASPART 100 UNITS/ML 3 ML PEN SC SCH (08:56)
[2016-12-01] MEDS ORDERED: ALFUZosin TAB 10 MG TAB PO SCH (09:00)
[2016-12-01] MEDS ORDERED: MAGNESIUM OXIDE 400 MG TAB PO SCH (09:00)
[2016-12-01 10:44] VITALS: BP 175/91; PULSE 68; TEMP 36.9; O2SAT 92
--- NOTE | 2016-12-01 11:27 | Progress Note ---
Subjective Date of Service: December 01, 2016. Subjective Pt evaluation today including: conversation w/ patient, physical exam, chart review, lab review, review of studies, conversation w/ cycle consultant, review of inpatient medication list Doing well, out of bed to chair, eating food, no complaining Problem List Medical Problems: (1) Cellulitis of left lower leg Status: Acute (2) Kyle catheter problem Status: Acute (3) Urinary retention Status: Acute (4) Urinary retention Status: Acute (5) Wound infection Status: Acute Review of Systems Constitutional: + fatigue, No chills, No fever, No problem reported, No sweats , No weakness, No weight loss Eyes: No diplopia, No discharge, No eye pain, No redness, No worsening of vision ENT: No dental problems, No hearing loss, No nasal symptoms, No sore throat, No tinnitus, No trouble swallowing, No unusual epistaxis Respiratory: No cough, No dyspnea at rest, No dyspnea on exertion, No hemoptysis, No shortness of breath, No sputum, No wheezing Cardiac: No PND, No chest pain, No claudication, No edema, No orthopnea, No palpitations Abdomen: No constipation, No diarrhea, No nausea, No pain, No vomiting Musculoskeletal: No calf pain, No joint pain, No muscle pain, No swelling Male : No dysuria, No hematuria, No incontinence, No nocturia more than once/ night, No slowing stream, No urinary frequency Neurologic: No balance problems, No memory loss, No numbness/tingling, No paralysis, No vertigo, No weakness Psychiatric: No anhedonism, No anxiety, No depression symptoms, No insomnia, No substance abuse Heme: No abnormal bleeding/bruising, No clotting problems, No night sweats, No swollen lymph nodes Endo: No excessive thirst, No excessive urination, No fatigue Skin: No bleeding, No color change, No itch, No new/changing skin lesions, No rash Objective Vital Signs Date Time Temp Pulse Resp B/P Pulse Ox O2 Delivery O2 Flow Rate FiO2 12/01/16 10:44 36.9 68 18 92 Nasal Cannula 12/01/16 08:00 Room Air 12/01/16 07:59 36.9 68 18 175/91 92 Room Air 11/30/16 23:30 Room Air 11/30/16 22:55 36.4 56 18 121/78 92 Room Air 11/30/16 15:52 37.0 62 18 112/53 92 Room Air 11/30/16 15:10 Room Air Physical Exam General Appearance: WD/WN, no apparent distress Eyes: normal inspection, PERRL, EOMI, sclerae normal ENT: normal ENT inspection, hearing grossly normal, pharynx normal Neck: supple, no adenopathy, thyroid normal, no JVD, no carotid bruits, trachea midline Respiratory/Chest: chest non-tender, normal breath sounds, no respiratory distress, no accessory muscle use, + decreased breath sounds Cardiovascular: regular rate, rhythm, no edema, no gallop, no JVD, no murmur Abdomen: normal bowel sounds, non tender, soft, no organomegaly, no pulsatile mass, + pertinent finding (Kyle catheter in place with good urine output) Extremities: normal range of motion, non-tender, normal inspection, no pedal edema, no calf tenderness, normal capillary refill, pelvis stable Neurologic/Psychiatric: 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, no motor/sensory deficits, alert, normal mood/affect, oriented x 3 Skin: normal color, warm/dry, no rash Lymphatic: no adenopathy Laboratory Results Last 24 Hours Test 11/30/16 12:21 11/30/16 17:16 11/30/16 20:39 12/01/16 05:30 Bedside Glucose 227 mg/dl 80 mg/dl 149 mg/dl White Blood Count 7.84 K/uL Red Blood Count 3.09 M/uL Hemoglobin 9.9 g/dL Hematocrit 29.6 % Mean Corpuscular Volume 95.8 fL Mean Corpuscular Hemoglobin 32.0 pg Mean Corpuscular Hemoglobin Concent 33.4 g/dl Platelet Count 271 K/uL Mean Platelet Volume 10.1 fL Neutrophils (%) (Auto) 59.1 % Lymphocytes (%) (Auto) 24.7 % Monocytes (%) (Auto) 10.7 % Eosinophils (%) (Auto) 4.8 % Basophils (%) (Auto) 0.6 % Neutrophils # (Auto) 4.62 K/uL Lymphocytes # (Auto) 1.94 K/uL Monocytes # (Auto) 0.84 K/uL Eosinophils # (Auto) 0.38 K/uL Basophils # (Auto) 0.05 K/uL RDW Standard Deviation 49.3 fL RDW Coefficient of Variation 14.2 % Immature Granulocyte % (Auto) 0.1 % Immature Granulocyte # (Auto) 0.01 K/uL Sodium Level 140 mmol/L Potassium Level 3.2 mmol/L Chloride Level 102 mmol/L Carbon Dioxide Level 31 mmol/L Anion Gap 7.0 mmol/L Blood Urea Nitrogen 19 mg/dl Creatinine 1.20 mg/dl Est Creatinine Clear Calc Drug Dose 61.7 ml/min Estimated GFR () 64.9 Estimated GFR (Non- 56.0 BUN/Creatinine Ratio 15.5 Random Glucose 127 mg/dl Calcium Level 8.3 mg/dl Magnesium Level 1.7 mg/dl Test 12/01/16 08:18 Bedside Glucose 135 mg/dl Assessment and Plan 81 y/o M who was admitted earlier today s/p TURP s/p TURP: as per urology Per Dr. Martinez will keep to monitor blood in urine. Will be d/c home with kyle- TOV in office in 10 days Continue to stay off Plavix until seen by Dr. Martinez. Ok to restart ASA 81 mg if urine remains clear for 7 days. Urologist of November plan d/c home on macrodantin for 10 days. DM: Tolerating PO without issue Resume home PO meds No current insulin use HTN/CAD/hx of [place] : resume home meds Hypomagnesemia and hypokinemia, replaced, consult patient about magnesium and potassium rich diet, and advise to see PCP to follow up BMP regularly, next check maybe 3-4 week Discussed with patient and , SCD for DVT prophylaxis Discharge planning: home
--- NOTE | 2016-12-12 22:46 | DISCHARGE SUMMARY ---
REASON FOR THE ADMISSION: 1. Acute urinary retention and elevated PSA. 2. TURP and prostate biopsy. HISTORY OF ADMISSION AND HOSPITAL COURSE: The patient was admitted after having a long episode of gross hematuria after urinary retention and Funk catheter placement. He had been on Plavix. This was stopped for 10 days and he was scheduled for TURP, because of his urinary retention. Patient had a known large prostate and an elevated PSA. The day of the procedure, it was agreed that we would do a prostate biopsy as well as a TURP so that the patient could be free of the catheter. The patient was admitted on the day of the procedure. Please refer to the operative report for this procedure. Postoperatively, he did have some hematuria, which lasted the next day. Because of his concerns of previous urinary clot retention, we kept him for the next few days and his urine cleared. He was discharged to home with a Funk catheter and placed on antibiotics.
[2017-03-18] MEDS ORDERED: OXYC1TAB3 PO (14:42)
== END 2016-12-01 13:37 | disposition home or self-care (01) ==
LOC: ENRESERVTM → ENRESERVDT → C.ACU 05:31 → C.MSW 10:15
PROVIDERS: ADMIT Urology; ATTEND Urology
DX: C61 Malignant neoplasm of prostate (principal); N40.0 Benign prostatic hyperplasia without lower urinary tract symptoms; E87.6 Hypokalemia; E83.42 Hypomagnesemia; I10 Essential (primary) hypertension; I25.10 Atherosclerotic heart disease of native coronary artery without angina pectoris; E11.9 Type 2 diabetes mellitus without complications; I25.2 Old myocardial infarction; Z87.891 Personal history of nicotine dependence; Z83.3 Family history of diabetes mellitus; Z80.0 Family history of malignant neoplasm of digestive organs; Z82.49 Family history of ischemic heart disease and other diseases of the circulatory system

== ENCOUNTER → 2016-12-17 | Outpatient (CLI) | payer OTHER ==
[~2016-12-17] MED LIST changes: +CIPR-255 PO; +OXYC1TAB3 PO
--- NOTE | 2016-12-17 15:01 | DIAGNOSTIC IMAGING REPORT ---
BONE SCAN WHOLE BODY CLINICAL HISTORY: C61 Neoplasm of prostate, [id number] Urethral strictureNUCL6 COMPARISON STUDY: CT scan dated 11/20/2016 FINDINGS: The patient was injected with 24.9 mCi of technetium 99m MDP. Three-hour delayed whole body images were acquired. There are photopenic defects involving the left hip and both knees consistent with joint arthroplasties. There is increased activity within the left shoulder, a finding which is felt to be degenerative. There is a linear increased activity in the region of the right femoral neck. This is not the typical distribution for metastatic disease. This likely relates to postsurgical changes related to the joint placement, possibly relating to developing heterotopic ossification. Moderately intense increased activity in the left hip is felt to be arthritic. Within the lumbar spine there is increased activity at the L2-3 level. This is likely degenerative. IMPRESSION: Multifocal areas of abnormal uptake, likely related to degenerative change and joint replacements. There are no findings viewed as suspicious for metastatic disease. Electronically signed by: Jimmy Catalan M.D. 12/17/2016 3:00 PM Dictated Date/Time: 12/17/2016 2:55 PM
== END | disposition home or self-care (01) ==
LOC: C.NUCL 10:52
PROVIDERS: ATTEND Urology
DX: C61 Malignant neoplasm of prostate (principal); N35.9 Urethral stricture, unspecified

== ENCOUNTER → 2016-12-21 | Outpatient (CLI) | payer OTHER | END | disposition home or self-care (01) | LOC: C.LABSPEC 14:37 | PROVIDERS: ATTEND Urology | DX: N40.1 Benign prostatic hyperplasia with lower urinary tract symptoms (principal); C61 Malignant neoplasm of prostate ==

== ENCOUNTER → 2017-01-30 | Outpatient (CLI) | payer OTHER ==
[~2017-01-30] MED LIST changes: -ALFU10TA2 PO; +ALFU10TA30 PO; -CALC500C2 PO; -CIPR-255 PO; +OXYC-652 PO; -OXYC-738 PO
[2017-01-30 16:52] LABS: HEMATOCRIT 34.5 % (42-52); MEAN CORPUSCULAR HEMOGLOBIN 29.4 pg (25-34); MEAN CORPUSCULAR HGB CONC 31.6 g/dl (32-36); MEAN PLATELET VOLUME 10.7 fL (7.4-10.4); PLATELET COUNT 266 K/uL (130-400); RED BLOOD COUNT 3.71 M/uL (4.7-6.1); WHITE BLOOD COUNT 6.26 K/uL (4.8-10.8)
[2017-01-30 17:04] LABS: PROSTATE SPECIFIC ANTIGEN 1.44 ng/ml (0.000-4.000)
== END | disposition home or self-care (01) ==
LOC: C.LABBC 14:36
PROVIDERS: ATTEND Urology
DX: R97.20 Elevated prostate specific antigen [PSA] (principal); C61 Malignant neoplasm of prostate; N35.9 Urethral stricture, unspecified; N40.1 Benign prostatic hyperplasia with lower urinary tract symptoms

== ENCOUNTER → 2017-05-16 | Outpatient (CLI) | payer OTHER ==
[~2017-05-16] MED LIST changes: +ALFU10TA2 PO; -ALFU10TA30 PO; -BMX1 PO; -OXYC-652 PO; +OXYC-738 PO
--- NOTE | 2017-05-16 14:49 | DIAGNOSTIC IMAGING REPORT ---
LEFT KNEE 3 VIEWS CLINICAL HISTORY: Left knee pain. FINDINGS: AP, crosstable lateral, and sunrise views of left knee are compared to study dated 12/20/2014. The skeletal structures are osteopenic. A left knee arthroplasty is in near-anatomic alignment. There is been undersurface remodeling of the patella. No periprosthetic lucency is identified. No fracture is seen. There is no large joint effusion. Prepatellar soft tissue edema is noted. Advanced atherosclerotic calcification is present in the popliteal artery. Numerous surgical clips are present posterior to the knee. IMPRESSION: 1. Prepatellar soft tissue swelling with no acute bony abnormality seen in the left knee. 2. Osteopenia and left knee arthroplasty as above. Electronically signed by: Thiago Padilla M.D. 05/16/2017 2:48 PM Dictated Date/Time: 05/16/2017 2:46 PM
== END | disposition home or self-care (01) ==
LOC: C.RDSM 14:20
PROVIDERS: ATTEND Physician Assistant
DX: M25.562 Pain in left knee (principal)

== ENCOUNTER → 2017-05-28 | Outpatient (CLI) | payer OTHER | END | disposition home or self-care (01) | LOC: C.LABSPEC 10:46 | PROVIDERS: ATTEND Nurse Practitioner Adult Health | DX: R33.9 Retention of urine, unspecified (principal); R30.0 Dysuria ==

== ENCOUNTER 2017-06-05 07:03 | Inpatient (IN) | payer OTHER ==
[~2017-06-05] VITALS: Ht 172.7 cm; Wt 126.0 kg
[~2017-06-05 07:03] MED LIST changes: +NITROGLYCERIN 0.4 MG SL PER TAB CHARGE UT PRN; +PHARMACY GLYCEMIC MGMT CONSULT PRN
[2017-06-05 07:23] VITALS: BP 127/70; PULSE 65; TEMP 36.7; O2SAT 92; Ht 172.7 cm; Wt 126.0 kg
[2017-06-05 07:43] LABS: BASO % 0.7 %; BASO ABS # 0.03 K/uL (0-0.2); COMPLETE YES; EOS % 2.6 %; HEMATOCRIT 30.7 % (42-52); IG% 0.2 %; MEAN CELL VOLUME 94.5 fL (80-100); MEAN CORPUSCULAR HEMOGLOBIN 30.8 pg (25-34); MEAN CORPUSCULAR HGB CONC 32.6 g/dl (32-36); MEAN PLATELET VOLUME 9.4 fL (7.4-10.4); MONO % 8.4 %; NEUT % 76.1 %; PLATELET COUNT 181 K/uL (130-400); RED BLOOD COUNT 3.25 M/uL (4.7-6.1); WHITE BLOOD COUNT 4.16 K/uL (4.8-10.8)
[2017-06-05] MEDS: AVODART-ORDER AWAITING ACTION SCH ×2 (08:00→15:42)
[2017-06-05 08:07] LABS: BUN/CREATININE RATIO 22.2 (10-20); CREATININE 1.25 mg/dl (0.60-1.40); POTASSIUM 4.1 mmol/L (3.5-5.1)
--- NOTE | 2017-06-05 08:55 | History and Physical ---
History Date of Service: Jun 05, 2017. Chief Complaint: dysuria, UTI Primary Care Physician: Kori Parmar D.O. Pt seen a urologist before?: Yes (Dr. Martinez) If yes, why?: prostate cancer, BPH, hydrocele, nephrolithiasis History of Present Illness 82 yo male directly admitted by Dr. Martinez to [facility] for Jodi Glabrata UTI requiring amphotericin B bladder instillations. Pt c/o dysuria x 1 week. Denies gross hematuria. + urge incontinence. Denies f/c or n/v. He has a hx of prostate cancer, BPH, hydrocele, and nephrolithiasis for which he sees Dr. Martinez. He has a hx of XRT and Casodex for treatment of his prostate cancer. Advised to d/c Casodex by Dr. Martinez at his OV on 05-08. The pt also has multiple comorbid issues including diabetes, obesity, HTN, high cholesterol, and CAD with hx of MA and CABG. He reports he walks with a walker at home, and has home PT to help as he has bursitis of the hip. Laboratory Last 24 Hours Test 06/05/17 07:27 White Blood Count 4.16 K/uL Red Blood Count 3.25 M/uL Hemoglobin 10.0 g/dL Hematocrit 30.7 % Mean Corpuscular Volume 94.5 fL Mean Corpuscular Hemoglobin 30.8 pg Mean Corpuscular Hemoglobin Concent 32.6 g/dl Platelet Count 181 K/uL Mean Platelet Volume 9.4 fL Neutrophils (%) (Auto) 76.1 % Lymphocytes (%) (Auto) 12.0 % Monocytes (%) (Auto) 8.4 % Eosinophils (%) (Auto) 2.6 % Basophils (%) (Auto) 0.7 % Neutrophils # (Auto) 3.16 K/uL Lymphocytes # (Auto) 0.50 K/uL Monocytes # (Auto) 0.35 K/uL Eosinophils # (Auto) 0.11 K/uL Basophils # (Auto) 0.03 K/uL RDW Standard Deviation 52.3 fL RDW Coefficient of Variation 15.2 % Immature Granulocyte % (Auto) 0.2 % Immature Granulocyte # (Auto) 0.01 K/uL Sodium Level 137 mmol/L Potassium Level 4.1 mmol/L Chloride Level 102 mmol/L Carbon Dioxide Level 28 mmol/L Anion Gap 7.0 mmol/L Blood Urea Nitrogen 28 mg/dl Creatinine 1.25 mg/dl Est Creatinine Clear Calc Drug Dose 57.9 ml/min Estimated GFR () 61.3 Estimated GFR (Non- 52.9 BUN/Creatinine Ratio 22.2 Random Glucose 193 mg/dl Calcium Level 9.0 mg/dl Problem List Medical Problems: (1) Cellulitis of left lower leg Status: Acute (2) Kyle catheter problem Status: Acute (3) Urinary retention Status: Acute (4) Urinary retention Status: Acute (5) Wound infection Status: Acute Past History Past Medical History: angina, BPH, cancer - prostate, coronary artery disease, diabetes, high cholesterol, hypertension, kidney stones, myocardial infarction, other (anemia, chronic tension headaches, hydrocele, hypomagnesemia, diastolic dysfunction-left ventricle, hip bursitis) Past Surgical History: angioplasty without stent, coronary bypass surgery, orthopedic surgery (foot surgery), THR, TKR Family History Diabetes mellitus FH: prostate cancer FHx: colon cancer Hypertension Social History Hx Tobacco Use In Past Year?: No Smoking: non-smoker, other (former smoker) Alcohol: never Drug use: none Marital status: Housing status: lives with family Occupation status: retired Immunizations History of Influenza Vaccine: No History of Tetanus Vaccine?: Unknown History of Pneumococcal: Yes Pneumococcal Date: Apr 26, 2004 History of Hepatitis B Vaccine: No History of MDRO No Allergies Coded Allergies: Adhesives (Verified Allergy, Unknown, DRAPES TORE PT'S SKIN OFF, 11/29/16) Bee Venom (Verified Allergy, Unknown, SWELLING, 11/29/16) Diclofenac (Verified Allergy, Unknown, 11/29/16) Naproxen (Verified Allergy, Unknown, 11/29/16) Amoxicillin (Verified Adverse Reaction, Unknown, CAUSES DIARRHEA, 11/16/16) Celecoxib (Verified Adverse Reaction, Unknown, gi bleed, 11/29/16) Medications Home Medications: Home Meds and Scripts Medications Dose Route/Sig Max Daily Dose Days Date Category Dose Instructions Roxicodone Ir (Oxycodone HCl) 5 Mg Tab 5 Mg PO Q6H PRN 03/18/17 Reported Plavix (Clopidogrel Bisulfate) 75 Mg Tab 75 Mg PO DAILY 11/27/16 Reported Aspirin Ec (Aspirin) 81 Mg Tab 81 Mg PO QAM 11/27/16 Reported [Oxybutynin] 2.5 Mg PO TID PRN 11/27/16 Reported Hydrochlorothiazide 25 Mg Tab 25 Mg PO QAM 11/20/16 Reported Imdur Ext Rel (Isosorbide Mononitrate) 120 Mg Ertab 180 Mg PO QPM 11/20/16 Reported Glimepiride 2 Mg Tab 2 Mg PO BID 11/20/16 Reported Atorvastatin Calcium (Atorvastatin) 40 Mg Tab 40 Mg PO HS 11/20/16 Reported Atenolol 50 Mg Tab 50 Mg PO QAM 11/20/16 Reported Potassium Chloride Er (Potassium Chloride) 10 Meq Tab 10 Meq PO QAM 11/20/16 Reported Cozaar (Losartan Potassium) 100 Mg Tab 100 Mg PO QAM 11/20/16 Reported Oxycodone HCl ER (Oxycodone HCl) 10 Mg Tab 10 Mg PO BID 11/20/16 Reported Glucophage (Metformin Hcl) 1,000 Mg Tab 500 Mg PO WITH LUNCH 11/09/16 Reported TAKE HALF A TABLET (500 MG) DAILY WITH LUNCH [place] ([place] ([place])) 450 Mg Cap 450 Mg PO QAM 11/09/16 Reported Glucosamine 1500 Complex (Aclyrrhvzrs-Ldpoxyyidtd-Hwc C-) 1 Cap Cap 2 Cap PO DAILY 11/09/16 Reported Uroxatral (Alfuzosin HCl) 10 Mg Tab 10 Mg PO QAM 05/04/16 Reported Nitrostat (Nitroglycerin) 0.4 Mg Sub 0.4 Mg UT UD PRN 11/24/12 Reported Niacin 500 Mg Tab 1,000 Mg PO QPM 11/24/12 Reported Avodart (Dutasteride) 0.5 Mg Cap 0.5 Mg PO QAM 11/24/12 Reported Glucophage (Metformin Hcl) 1,000 Mg Tab 1,000 Mg PO BID 11/24/12 Reported TAKE THIS MEDICATION WITH MORNING AND EVENING MEALS Multivitamin (Multivitamins) Tab 1 Tab PO QAM 11/22/07 Reported Nexium (Esomeprazole Magnesium) 40 Mg Capcr 40 Mg PO QPM 03/27/06 Reported Inpatient Medications: Current Inpatient Medications Medications (Trade) Dose Ordered Sig/Jez Route Start Time Stop Time Status Last Admin Dose Admin Amphotericin B 50 mg/Sterile Water 1,000 ml @ 41.667 mls/ hr DAILY@0800 IR 06/05/17 08:00 06/10/17 07:59 Alfuzosin HCl (Uroxatral Tab) 10 mg QAM PO 06/05/17 09:00 07/05/17 08:59 Aspirin (Ecotrin Tab) 81 mg QAM PO 06/05/17 09:00 07/05/17 08:59 Atenolol (Tenormin Tab) 50 mg QAM PO 06/05/17 09:00 07/05/17 08:59 Atorvastatin Calcium (Lipitor Tab) 40 mg HS PO 06/05/17 21:00 07/05/17 20:59 Bicalutamide (Casodex Tab) 50 mg QAM PO 06/05/17 09:00 07/05/17 08:59 Hydrochlorothiazide (Hydrochlorothiazide Tab) 25 mg QAM PO 06/05/17 09:00 07/05/17 08:59 Isosorbide Mononitrate (Imdur Ext Rel Tab) 180 mg QPM PO 06/05/17 21:00 07/05/17 20:59 Losartan Potassium (coZAAR TAB) 100 mg QAM PO 06/05/17 09:00 07/05/17 08:59 Multivitamins (Multivitamin Tab) 1 tab QAM PO 06/05/17 09:00 07/05/17 08:59 Nitroglycerin (Nitrostat Tab) 0.4 mg UD PRN UT 06/05/17 07:00 07/05/17 06:59 Oxycodone HCl (Roxicodone Immediate Rel Tab) 5 mg Q6H PRN PO 06/05/17 09:00 06/19/17 08:59 Miscellaneous Information (Order Awaiting Action) 1 ea QS N/A 06/05/17 08:00 07/05/17 07:59 Pantoprazole Sodium (Protonix Tab) 40 mg QPM PO 06/05/17 21:00 07/05/17 20:59 Potassium Chloride (Klor-Con M10) 10 meq QAM PO 06/05/17 09:00 07/05/17 08:59 Miscellaneous Information (Order Awaiting Action) 1 ea QS N/A 06/05/17 00:00 07/05/17 00:00 Docusate Sodium (coLACE CAP) 100 mg BID PO 06/05/17 09:00 07/05/17 08:59 Miscellaneous Information (Consult Glycemic Management Pharmacy) 1 ea UD PRN N/A 06/04/17 20:14 07/04/17 20:13 Clopidogrel Bisulfate (plAVix TAB) 75 mg DAILY PO 06/05/17 09:00 07/05/17 08:59 Oxybutynin Chloride (Ditropan Tab) 5 mg TID PRN PO 06/05/17 08:30 07/05/17 08:29 UNV Review of Systems Review of Systems Constitutional: No fever, No chills Eyes: No double vision Neurological: No dizzy Endocrine: No excessive thirst Gastrointestinal: No abdominal pain, No nausea, No vomiting Cardiovascular: No chest pain Respiratory: No shortness of breath Skin: No rash Musculoskeletal: + arthritis, + problem reported (hip pain ) Male : + painful urination Physical Exam Vital Signs: Vital Signs Past 12 Hours Date Time Temp Pulse Resp B/P (MAP) Pulse Ox O2 Delivery O2 Flow Rate FiO2 06/05/17 07:23 36.7 65 16 127/70 92 Room Air Physical Exam: General Appearance: no apparent distress Eyes: bilateral eyes normal inspection ENT: hearing grossly normal Neck: no JVD Respiratory/Chest: lungs clear, normal breath sounds, no respiratory distress, no accessory muscle use Cardiovascular: regular rate, rhythm, no JVD Gastrointestinal: Abdomen: pertinent finding (non-tender on exam, bowel sounds present in all 4 quadrants) Extremities: + swelling (BLE ) Neurologic/Psychiatric: alert, normal mood/affect, oriented x 3 Skin: normal color Assessment & Plan Assessment & Plan A/P: Jodi Glabrata UTI AFVSS. The pt will be admitted for 5 days of amphotericin B bladder instillations q6hrs as recommended by Dr. Martinez and discussed with Dr. Miller. Will place a kyle catheter while inpatient for ease of instillation. Will also repeat a UC&S. Will order PT/OT eval to aid in ambulation while inpatient as I would like to the pt remain as active as possible. Will consult hospitalist for aid in his multiple co-morbid issues. Should hopefully not need too many adjustments from home therapy. Currently plan for d/c home on Saturday, June 10 after completing amphotericin B bladder instillations.
[2017-06-05] MEDS: DOCUSATE SODIUM 100 MG CAP PO SCH ×2 (09:00→20:55)
[2017-06-05] MEDS: MULTIVITAMIN TAB PO SCH (09:00)
[2017-06-05] MEDS: CLOPIDOGREL BISULFATE 75 MG TAB PO SCH (09:00)
[2017-06-05] MEDS ORDERED: BICALUTAMIDE 50 MG TAB PO SCH (09:00)
[2017-06-05] MEDS: OXYCODONE HCL 10 MG TABCR (OXYCONTIN) PO SCH ×2 (09:00→20:58)
[2017-06-05] MEDS: ALFUZosin TAB 10 MG TAB PO SCH (09:00)
[2017-06-05] MEDS: ASPIRIN 81 MG ECTAB PO SCH (09:00)
[2017-06-05] MEDS: POTASSIUM CHLORIDE 10 MEQ TABCR PO SCH (09:00)
[2017-06-05] MEDS: HYDROCHLOROTHIAZIDE 25 MG TAB PO SCH (09:00)
[2017-06-05] MEDS: LOSARTAN POTASSIUM 50 MG TAB PO SCH (09:00)
[2017-06-05] MEDS ORDERED: GLUCOSAMINE CHONDROITIN VIT C PO SCH (09:00)
[2017-06-05] MEDS ORDERED: INSULIN GLARGINE SOLOSTAR 100 UNITS/ML 3 ML PEN SC ONE ×2 (09:15→21:00)
[2017-06-05] MEDS ORDERED: INSULIN ASPART 100 UNITS/ML 3 ML PEN SC SCH (09:15)
--- NOTE | 2017-06-05 10:16 | Medical Consult ---
Consultation Date of Consultation: Jun 05, 2017. Attending Physician: Rush Martinez M.D. History of Present Illness Mr. Hallman was a direct admission from Dr. Martinez fungal infection. He began having symptoms of UTI a week and a half ago and was put on Cipro. He completed the course yesterday but was still symptomatic with burning, dysuria and incontinence. He has had difficulty with incontinence since receiving radiation for prostate CA. He has a past medical history of CAD, GERD, HTN, HLD , adenocarcinoma s/p TURP and radiation, BPH, DMII, lymphedema bilateral lower extremities - left persists with edema. He uses a walker and wheelchair to get around. He lives at home with his and he has caretakers who come in to help bathe and dress three times a week. He feels he has no stamina but this is chronic ROS Constitutional: no chills, aches, sweats or fever Respiratory: no sob,cough, sputum, or wheezing Cardiac: no chest pain, palpitations, edema, orthopnea or lightheadedness GI: no abdominal pain, nausea, vomiting, diarrhea or constipation : no dysuria or hesitancy Extremities: no joint pain or weakness Skin: no rash Past Medical/Surgical History Medical Problems: (1) Cellulitis of left lower leg Status: Acute (2) Funk catheter problem Status: Acute (3) Urinary retention Status: Acute (4) Urinary retention Status: Acute (5) Wound infection Status: Acute Family History Diabetes mellitus FH: prostate cancer FHx: colon cancer Hypertension Social History Smoking Status: Former Smoker Drug Use: none Marital Status: Housing Status: lives with family Occupation Status: retired Allergies Coded Allergies: Adhesives (Verified Allergy, Unknown, DRLINSEY ARCEO PT'S SKIN OFF, 11/29/16) Bee Venom (Verified Allergy, Unknown, SWELLING, 11/29/16) Diclofenac (Verified Allergy, Unknown, 11/29/16) Naproxen (Verified Allergy, Unknown, 11/29/16) Amoxicillin (Verified Adverse Reaction, Unknown, CAUSES DIARRHEA, 11/16/16) Celecoxib (Verified Adverse Reaction, Unknown, gi bleed, 11/29/16) Current Inpatient Medications Current Inpatient Medications Medications (Trade) Dose Ordered Sig/Jez Route Start Time Stop Time Status Last Admin Dose Admin Amphotericin B 50 mg/Sterile Water 1,000 ml @ 41.667 mls/ hr DAILY@0800 IR 06/05/17 08:00 06/10/17 07:59 Alfuzosin HCl (Uroxatral Tab) 10 mg QAM PO 06/05/17 09:00 07/05/17 08:59 Aspirin (Ecotrin Tab) 81 mg QAM PO 06/05/17 09:00 07/05/17 08:59 Atenolol (Tenormin Tab) 50 mg QAM PO 06/05/17 09:00 07/05/17 08:59 Atorvastatin Calcium (Lipitor Tab) 40 mg HS PO 06/05/17 21:00 07/05/17 20:59 Hydrochlorothiazide (Hydrochlorothiazide Tab) 25 mg QAM PO 06/05/17 09:00 07/05/17 08:59 Isosorbide Mononitrate (Imdur Ext Rel Tab) 180 mg QPM PO 06/05/17 21:00 07/05/17 20:59 Losartan Potassium (coZAAR TAB) 100 mg QAM PO 06/05/17 09:00 07/05/17 08:59 Multivitamins (Multivitamin Tab) 1 tab QAM PO 06/05/17 09:00 07/05/17 08:59 Nitroglycerin (Nitrostat Tab) 0.4 mg UD PRN UT 06/05/17 07:00 07/05/17 06:59 Oxycodone HCl (Roxicodone Immediate Rel Tab) 5 mg Q6H PRN PO 06/05/17 09:00 06/19/17 08:59 Miscellaneous Information (Order Awaiting Action) 1 ea QS N/A 06/05/17 08:00 07/05/17 07:59 Pantoprazole Sodium (Protonix Tab) 40 mg QPM PO 06/05/17 21:00 07/05/17 20:59 Potassium Chloride (Klor-Con M10) 10 meq QAM PO 06/05/17 09:00 07/05/17 08:59 Miscellaneous Information (Order Awaiting Action) 1 ea QS N/A 06/05/17 00:00 07/05/17 00:00 Docusate Sodium (coLACE CAP) 100 mg BID PO 06/05/17 09:00 07/05/17 08:59 Miscellaneous Information (Consult Glycemic Management Pharmacy) 1 ea UD PRN N/A 06/04/17 20:14 07/04/17 20:13 Clopidogrel Bisulfate (plAVix TAB) 75 mg DAILY PO 06/05/17 09:00 07/05/17 08:59 Oxybutynin Chloride (Ditropan Tab) 5 mg TID PRN PO 06/05/17 08:30 07/05/17 08:29 Insulin Aspart (novoLOG ASPART) SLIDING SCALE If C... ACHS SC 06/05/17 12:00 07/05/17 11:59 Oxycodone HCl (Oxycontin Tab) 10 mg BID PO 06/05/17 09:00 06/19/17 08:59 Hydromorphone HCl (Dilaudid Inj) 1 mg Q2H PRN IV 06/05/17 09:00 06/19/17 08:59 Insulin Aspart (novoLOG ASPART) SLIDING SCALE If C... 0915 [place] 06/05/17 09:15 06/05/17 10:15 Review of Systems Endocrine: + fatigue Hematologic / Lymphatic: + problem reported (chronic lymphedema left lower extremity) Allergic / Immunologic: + problem reported (multiple allergies to medications) Physical Exam Date Time Temp Pulse Resp B/P (MAP) Pulse Ox O2 Delivery O2 Flow Rate FiO2 06/05/17 07:23 36.7 65 16 127/70 92 Room Air General: no distress Eyes: normal inspection, PERLL Respiratory: chest non tender, clear to auscultation, normal breath sounds, no respiratory distress, no accessory muscle use Cardiac: regular rate and rhythm, no rub or gallop, no murmur, no edema, no jvd GI/: active bowel sounds, no abd pain or tenderness, soft, non distended Extremities: normal range of motion, normal strength, non tender, left leg non pitting edema > R (patient states this is baseline) Neuro/Psych: alert and oriented x 3, normal mood and affect Skin: normal color, dry Laboratory Results Last 24 Hours Test 06/05/17 07:27 White Blood Count 4.16 K/uL Red Blood Count 3.25 M/uL Hemoglobin 10.0 g/dL Hematocrit 30.7 % Mean Corpuscular Volume 94.5 fL Mean Corpuscular Hemoglobin 30.8 pg Mean Corpuscular Hemoglobin Concent 32.6 g/dl Platelet Count 181 K/uL Mean Platelet Volume 9.4 fL Neutrophils (%) (Auto) 76.1 % Lymphocytes (%) (Auto) 12.0 % Monocytes (%) (Auto) 8.4 % Eosinophils (%) (Auto) 2.6 % Basophils (%) (Auto) 0.7 % Neutrophils # (Auto) 3.16 K/uL Lymphocytes # (Auto) 0.50 K/uL Monocytes # (Auto) 0.35 K/uL Eosinophils # (Auto) 0.11 K/uL Basophils # (Auto) 0.03 K/uL RDW Standard Deviation 52.3 fL RDW Coefficient of Variation 15.2 % Immature Granulocyte % (Auto) 0.2 % Immature Granulocyte # (Auto) 0.01 K/uL Sodium Level 137 mmol/L Potassium Level 4.1 mmol/L Chloride Level 102 mmol/L Carbon Dioxide Level 28 mmol/L Anion Gap 7.0 mmol/L Blood Urea Nitrogen 28 mg/dl Creatinine 1.25 mg/dl Est Creatinine Clear Calc Drug Dose 57.9 ml/min Estimated GFR () 61.3 Estimated GFR (Non- 52.9 BUN/Creatinine Ratio 22.2 Random Glucose 193 mg/dl Calcium Level 9.0 mg/dl Assessment & Plan Mr. Hallman is an 82 year old man here for five days of amphotericin B bladder instillation for Jodi Glabrata UTI per urology. He has a past medical history of CAD s/p SC and CABG, GERD, HTN, HLD, adenocarcinoma s/p TURP and radiation, BPH, DMII, lymphedema bilateral lower extremities - left persists with edema. Fungal UTI - per primary care amphotericin B bladder instillations - Funk catheter in place - pain control per primary care CAD/HTN/HLD - continue atenolol, asa, losartan, isosorbide, clopidogrel, statin DMII - held home metoprolol, Actos and glimepride - SS, bsg ac&hs GERD - continue protonix Lymphedema - patient usually has his release engineer who has been trained by a lymphedema specialist wrap his left leg but he feels he will be ok without it for his time in the hospital - keep extremity elevated when resting
[2017-06-05] MEDS: AMPHOTERICIN B IRRIGATION INJ 50 MG in STERILE WATER 1000 ML 1,000 ML IR SCH ×2 (11:09→21:52)
[2017-06-05] MEDS: OXYBUTYNIN CHLORIDE 5 MG TAB PO PRN ×2 (11:13→20:53)
[2017-06-05] MEDS: OXYCODONE HCL IR 5 MG TAB (IMMEDIATE RELEASE) PO PRN ×2 (13:01→19:06)
--- NOTE | 2017-06-05 13:20 | Pharmacy Progress Note ---
Glycemic Control Intl Consult Date of Service Jun 05, 2017. Scope Glycemic Pharmacist consulted by Mukesh PAGE on 06/04/17 for glycemic control and to write orders per [facility] inpatient glycemic control protocol Objective Weight (Kilograms): 126.000 Accuchecks BSG (last 24hrs): Test 06/05/17 07:27 Random Glucose 193 mg/dl (70-99) Laboratory Data (last 24hrs) Test 06/05/17 07:27 Anion Gap 7.0 mmol/L BUN/Creatinine Ratio 22.2 Blood Urea Nitrogen 28 mg/dl Creatinine 1.25 mg/dl Potassium Level 4.1 mmol/L Sodium Level 137 mmol/L White Blood Count 4.16 K/uL Red Blood Count 3.25 M/uL Hemoglobin 10.0 g/dL Hematocrit 30.7 % Mean Corpuscular Volume 94.5 fL Mean Corpuscular Hemoglobin 30.8 pg Mean Corpuscular Hemoglobin Concent 32.6 g/dl Platelet Count 181 K/uL Mean Platelet Volume 9.4 fL Neutrophils (%) (Auto) 76.1 % Lymphocytes (%) (Auto) 12.0 % Monocytes (%) (Auto) 8.4 % Eosinophils (%) (Auto) 2.6 % Basophils (%) (Auto) 0.7 % Neutrophils # (Auto) 3.16 K/uL Lymphocytes # (Auto) 0.50 K/uL Monocytes # (Auto) 0.35 K/uL Eosinophils # (Auto) 0.11 K/uL Basophils # (Auto) 0.03 K/uL Recent Pertinent Medications Outpatient Anti-diabetic Regimen: * Glimepiride 2 mg po BID + metformin 1 gm BID and 500 mg with lunch * A1c = 8.0 % 07/27/16 Assessment & Plan ASSESSMENT: * 82 yr old T2DM male admitted for amphotericin bladder irrigation due to fungal UTI. * Pt is maintained on oral agents as an outpatient. * Will initiate weight based insulin dosing for insulin angela patient and titrate based on BSG trends. * Will give 0.2 units/kg of Lantus this am and continue to titrate to goal BSG. * Initial novolog parameters based on wt. and stress of 2. PLAN FOR INPATIENT GLYCEMIC CONTROL: * Holding outpatient oral diabetes medications * Basal insulin * Lantus 26 units SQ qam * Lantus 12 units SQ HS (if BSG is greater than 180 mg/dL) * Correctional Insulin with NOVOLOG per scale ACHS or Q6hrs while NPO * Goal Range: Low 110 mg/dL - High 140 mg/dL * Correction Factor: 20 mg/dL/unit * Nutritional / Prandial insulin per carb ratio of 1 unit per 6 grams CHO consumed * Please note that the plan above was derived based on current level of insulin resistance and hospital stress. These recommendations are appropriate for inpatient admission only. Plan of care upon discharge will need to be reassessed to avoid potential outpatient hypo/hyperglycemia. Thank you.
[2017-06-05] MEDS: INSULIN ASPART 100 UNITS/ML 3 ML PEN SC SCH ×3 (14:12→21:03)
[2017-06-05 16:05] VITALS: BP 147/73; PULSE 52; TEMP 36.8; O2SAT 96
[2017-06-05] MEDS: HYDROmorphone INJ 1 MG/ML SYR IV PRN ×2 (17:38→22:46)
[2017-06-05] MEDS: ATORVASTATIN 40 MG TAB PO SCH (20:54)
[2017-06-05] MEDS: ISOSORBIDE MONONITRATE 60 MG TABCR PO SCH (20:55)
[2017-06-05] MEDS: PANTOprazole SOD 40 MG TAB PO SCH (20:56)
[2017-06-05 23:10] VITALS: BP 126/65; PULSE 69; TEMP 37.1; O2SAT 92
[2017-06-06] MEDS: OXYCODONE HCL IR 5 MG TAB (IMMEDIATE RELEASE) PO PRN ×3 (01:05→19:42)
[2017-06-06] MEDS: HYDROmorphone INJ 1 MG/ML SYR IV PRN ×5 (01:43→22:38)
[2017-06-06] MEDS: AMPHOTERICIN B IRRIGATION INJ 50 MG in STERILE WATER 1000 ML 1,000 ML IR SCH ×2 (04:25→09:49)
[2017-06-06 07:47] VITALS: BP 122/66; PULSE 56; TEMP 37.1; O2SAT 92
[2017-06-06] MEDS ORDERED: NURSING VERBAL MED ORDER ONE ×2 (08:00→11:30)
--- NOTE | 2017-06-06 08:02 | Progress Note ---
Subjective Date of Service: Jun 06, 2017. (Rocio Tovar CRNP) Subjective Pt evaluation today including: conversation w/ patient, chart review Voiding: kyle catheter in place (patent, draining clear, yellow urine) 82 yo male with Jodi Glabrata UTI. Pt c/o pain and spasming with leaking around catheter with amphotericin B instillations. Pt otherwise denies pain, gross hematuria, or n/v. (Rocio Tovar CRNP) Problem List Medical Problems: (1) Cellulitis of left lower leg Status: Acute (2) Kyle catheter problem Status: Acute (3) Urinary retention Status: Acute (4) Urinary retention Status: Acute (5) Wound infection Status: Acute (Rocio Tovar CRNP) Review of Systems Constitutional: No fever, No chills Respiratory: No shortness of breath Cardiac: No chest pain Abdomen: No pain, No nausea, No vomiting Male : + incontinence Heme: No abnormal bleeding/bruising (Rocio Tovar CRNP) Objective Vital Signs Date Time Temp Pulse Resp B/P (MAP) Pulse Ox O2 Delivery O2 Flow Rate FiO2 06/06/17 07:47 37.1 56 16 122/66 (84) 92 Room Air 06/05/17 23:15 Room Air 06/05/17 23:10 37.1 69 18 126/65 (85) 92 Room Air 06/05/17 16:05 36.8 52 18 147/73 (97) 96 Room Air 06/05/17 15:30 Room Air 06/05/17 08:30 Room Air (Rocio Tovar CRNP) Physical Exam General Appearance: no apparent distress, + obese Eyes: normal inspection ENT: hearing grossly normal Neck: no JVD Respiratory/Chest: no respiratory distress, no accessory muscle use Cardiovascular: no JVD Extremities: normal inspection Neurologic/Psychiatric: alert, normal mood/affect, oriented x 3 Skin: normal color (Rocio Tovar CRNP) Laboratory Results Last 24 Hours Test 06/05/17 11:54 06/05/17 17:21 06/05/17 20:10 06/06/17 06:34 Bedside Glucose 99 mg/dl 105 mg/dl 160 mg/dl (Rocio Tovar CRNP) Assessment and Plan A/P: Jodi Glabrata UTI AFVSS. Discussed leaking around catheter with Dr. Martinez. Dr. Martinez recommends switching to a 3-way kyle catheter and running the amphotericin B through CBI. Per pharmacy, amphotericin to be instilled through CBI and clamped for 30 minutes q6hrs. Will attempt per pharmacy's recommendations. (Rocio Tovar CRNP) Spoke w pt and nurse and he is having bladder spasms . We placed a 3 way catheter and will convert to continous irrigation at 80 cc hr Pt doing well otherwise. Rush Martinez (Rush Martinez M.D.)
[2017-06-06 08:06] LABS: ESTIMATED AVERAGE GLUCOSE 157 mg/dl; HA1C FLAG Normal (Normal)
[2017-06-06] MEDS: PT'S OWN MED: DUTASTERIDE 0.5MG PO SCH (09:50)
[2017-06-06] MEDS: LOSARTAN POTASSIUM 50 MG TAB PO SCH (09:51)
[2017-06-06] MEDS: DOCUSATE SODIUM 100 MG CAP PO SCH ×2 (09:51→21:00)
[2017-06-06] MEDS: HYDROCHLOROTHIAZIDE 25 MG TAB PO SCH (09:52)
[2017-06-06] MEDS: ASPIRIN 81 MG ECTAB PO SCH (09:52)
[2017-06-06] MEDS: POTASSIUM CHLORIDE 10 MEQ TABCR PO SCH (09:53)
[2017-06-06] MEDS: MULTIVITAMIN TAB PO SCH (09:53)
[2017-06-06] MEDS: CLOPIDOGREL BISULFATE 75 MG TAB PO SCH (09:55)
[2017-06-06] MEDS: ALFUZosin TAB 10 MG TAB PO SCH (09:55)
[2017-06-06] MEDS: OXYCODONE HCL 10 MG TABCR (OXYCONTIN) PO SCH ×2 (09:56→21:32)
[2017-06-06] MEDS: INSULIN ASPART 100 UNITS/ML 3 ML PEN SC SCH ×4 (10:05→21:37)
--- NOTE | 2017-06-06 10:58 | Pharmacy Progress Note ---
Pharmacy Glycemic Short Note 2 Date of Service Jun 06, 2017. Test 06/05/17 11:54 06/05/17 17:21 06/05/17 20:10 Bedside Glucose 99 mg/dl (70-99) 105 mg/dl (70-99) 160 mg/dl (70-99) Test 06/06/17 06:34 Hemoglobin A1c 7.1 % (4.5-5.6) H Outpatient Anti-diabetic Regimen: * Glimepiride 2 mg po BID + metformin 1 gm BID and 500 mg with lunch ASSESSMENT: * 82 yr old T2DM male admitted for amphotericin bladder irrigation due to fungal UTI. * Pt is maintained on oral agents as an outpatient. * Blood sugars at goal on basal bolus regimen. Will change Lantus to once daily dose for now. PLAN FOR INPATIENT GLYCEMIC CONTROL: * Hold outpatient oral diabetes medications * Basal insulin * Lantus 16 units SQ DAILY * Bolus insulin * NovoLog per scale ACHS or Q6hrs while NPO * Goal Range: Low 110 mg/dL - High 140 mg/dL * Correction Factor: 20 mg/dL/unit * Nutritional / Prandial insulin per carb ratio of 1 unit per 6 grams CHO consumed PLAN FOR DISCHARGE: * A1c = 7.1% - continue current regimen
[2017-06-06] MEDS ORDERED: INSULIN GLARGINE SOLOSTAR 100 UNITS/ML 3 ML PEN SC ONE (11:00)
--- NOTE | 2017-06-06 11:56 | Hospitalist Progress Note ---
Hospitalist Progress Note Date of Service Jun 06, 2017. Subjective Pt evaluation today including: conversation w/ patient, physical exam, chart review, lab review, review of studies Pain: L hip bursitis, chronic PO Intake: Good Voiding: kyle catheter in place The patient was seen and examined this morning. Pt reports that he is overall doing well, but has major complaints about Left hip bursitis today. Pt reports he has been using oxycodone IR Q4H as outpatient as this is much more affordable compared to oxycontin ER 10 or 20 mg tablets. He has been seeing Delfino Rendon PA-C for injections for hip pain, and last had this 3 weeks ago without much relief. He uses a walker at baseline, and has a lift chair from basement/garage to the first floor of [place]. In regard to his fungal UTI - pt reports still having some lower abdominal cramping and spasms but denies pain. He has not seen any blood in kyle bag, nor prior to admission. He denies any fever, chills or sweats. ROS: 6 point ROS reviewed and otherwise negative. Objective Vital Signs Date Time Temp Pulse Resp B/P (MAP) Pulse Ox O2 Delivery O2 Flow Rate FiO2 06/06/17 07:47 37.1 56 16 122/66 (84) 92 Room Air 06/05/17 23:15 Room Air 06/05/17 23:10 37.1 69 18 126/65 (85) 92 Room Air 06/05/17 16:05 36.8 52 18 147/73 (97) 96 Room Air 06/05/17 15:30 Room Air Physical Exam General Appearance: WD/WN, no apparent distress Eyes: PERRL, EOMI ENT: hearing grossly normal, pharynx normal Neck: supple, no JVD Respiratory/Chest: chest non-tender, lungs clear, no respiratory distress, no accessory muscle use Cardiovascular: regular rate, rhythm, no murmur Abdomen: normal bowel sounds, non tender, soft Extremities: normal inspection, + pedal edema (lymphedema in LLE, nonpitting, minimal edema in the RLE. ), + pertinent finding (Left hip pain with palpation over trochanteric bursa) Neurologic/Psychiatric: alert, oriented x 3 Skin: normal color, warm/dry Laboratory Results Last 24 Hours Test 06/05/17 11:54 06/05/17 17:21 06/05/17 20:10 06/06/17 06:34 Bedside Glucose 99 mg/dl 105 mg/dl 160 mg/dl Estimated Average Glucose 157 mg/dl Hemoglobin A1c 7.1 % Test 06/06/17 07:44 Bedside Glucose 97 mg/dl Assessment and Plan Mr. Hallman is an 82 yo M here for five days of amphotericin B bladder instillation for Jodi Glabrata UTI per urology. He has a past medical history of CAD s/p DC and CABG, GERD, HTN, HLD, adenocarcinoma s/p TURP and radiation, BPH, DMII, lymphedema bilateral lower extremities - left persists with edema. Fungal UTI - per primary care amphotericin B bladder instillations - has not yet been hooked up due to unavailability of parts for 3 way bladder irrigation, nursing and urology aware and coordinating - Kyle catheter in place- draining clear yellow urine - pain control per primary care CAD/HTN/HLD - continue atenolol, asa, losartan, isosorbide, clopidogrel, statin DMII - held home metoprolol, Actos and glimepride - SS, bsg ac&hs GERD - continue protonix Lymphedema - patient usually has his occupational therapy program director who has been trained by a lymphedema specialist wrap his left leg but he feels he will be ok without it for his time in the hospital - keep extremity elevated when resting Chronic Left Hip Bursitis - If persists would recommend ortho consultation - pt follows with Aime Rendon PA-C and last recieved corticosteriod injections ~3 weeks ago. - Continue Oxy IR as scheduled. Pt can not afford oxycontin ER as an outpatient so would not recommend that here in hospital. Can use IV dilaudid as written by primary team for intermittent severe pain. Disposition: From home, lives with . Thank you for allowing us to participate in the care of Mr. Hallman, at this time medicine will sign off.
[2017-06-06] MEDS: OXYBUTYNIN CHLORIDE 5 MG TAB PO PRN ×2 (12:33→21:30)
[2017-06-06] MEDS ORDERED: [UNRECOGNIZED DRUG - OTHER] IR SCH ×2 (14:00→15:00)
[2017-06-06 15:34] VITALS: BP 99/66; PULSE 55; TEMP 37.1; O2SAT 92
[2017-06-06 21:30] VITALS: BP 139/76; PULSE 55
[2017-06-06] MEDS: PANTOprazole SOD 40 MG TAB PO SCH (21:30)
[2017-06-06] MEDS: ATORVASTATIN 40 MG TAB PO SCH (21:31)
[2017-06-06] MEDS: ISOSORBIDE MONONITRATE 60 MG TABCR PO SCH (21:31)
[2017-06-06] MEDS: AMPHOTERICIN B IRRIGATION IR SCH ×2 (22:42)
[2017-06-06] MEDS: STERILE WATER IR SCH ×2 (22:42)
[2017-06-06 23:20] VITALS: BP 113/64; PULSE 59; TEMP 37; O2SAT 95
[2017-06-07] MEDS: OXYCODONE HCL IR 5 MG TAB (IMMEDIATE RELEASE) PO PRN ×3 (05:59→22:28)
[2017-06-07 07:22] VITALS: BP 148/65; PULSE 56; TEMP 36.5; O2SAT 93
[2017-06-07] MEDS: PT'S OWN MED: DUTASTERIDE 0.5MG PO SCH (08:19)
[2017-06-07] MEDS: MULTIVITAMIN TAB PO SCH (08:20)
[2017-06-07] MEDS: CLOPIDOGREL BISULFATE 75 MG TAB PO SCH (08:20)
[2017-06-07] MEDS: ASPIRIN 81 MG ECTAB PO SCH (08:20)
[2017-06-07] MEDS: DOCUSATE SODIUM 100 MG CAP PO SCH ×3 (08:20→21:23)
[2017-06-07] MEDS: LOSARTAN POTASSIUM 50 MG TAB PO SCH (08:21)
[2017-06-07] MEDS: POTASSIUM CHLORIDE 10 MEQ TABCR PO SCH (08:22)
[2017-06-07] MEDS: OXYBUTYNIN CHLORIDE 5 MG TAB PO PRN ×2 (08:22→18:09)
[2017-06-07] MEDS: HYDROCHLOROTHIAZIDE 25 MG TAB PO SCH (08:23)
[2017-06-07] MEDS: ALFUZosin TAB 10 MG TAB PO SCH (08:23)
[2017-06-07] MEDS: OXYCODONE HCL 10 MG TABCR (OXYCONTIN) PO SCH ×2 (08:25→21:22)
--- NOTE | 2017-06-07 08:56 | Progress Note ---
Subjective Date of Service: Jun 07, 2017. Subjective Pt evaluation today including: conversation w/ patient, chart review Voiding: kyle catheter in place (patent, draining clear, yellow urine) 82 yo male with Jodi Glabrata UTI. Pt has been switched to amphotericin B CBI with a rate of 80ml per hour running. He continues to c/o some leaking around the catheter. Denies bladder pain. C/o his generalized aches and pains. He reports he refused PT/OT, and has stated to his RN that he does not want to get out of bed, and plans to get out of bed when he goes back home. Problem List Medical Problems: (1) Cellulitis of left lower leg Status: Acute (2) Kyle catheter problem Status: Acute (3) Urinary retention Status: Acute (4) Urinary retention Status: Acute (5) Wound infection Status: Acute Review of Systems Constitutional: No fever, No chills Respiratory: No shortness of breath Cardiac: No chest pain Abdomen: No pain, No nausea, No vomiting Male : No hematuria Heme: No abnormal bleeding/bruising Objective Vital Signs Date Time Temp Pulse Resp B/P (MAP) Pulse Ox O2 Delivery O2 Flow Rate FiO2 06/07/17 07:22 36.5 56 18 148/65 (92) 93 Room Air 06/07/17 00:44 Room Air 06/06/17 23:20 37.0 59 18 113/64 (80) 95 Room Air 06/06/17 21:30 55 139/76 (97) 06/06/17 15:34 37.1 55 16 99/66 (77) 92 Room Air 06/06/17 15:20 Room Air Physical Exam General Appearance: no apparent distress, + obese Eyes: normal inspection ENT: hearing grossly normal Neck: no JVD Respiratory/Chest: no respiratory distress, no accessory muscle use Cardiovascular: no JVD Extremities: normal inspection Neurologic/Psychiatric: alert, normal mood/affect, oriented x 3 Skin: normal color Laboratory Results Last 24 Hours Test 06/06/17 11:56 06/06/17 17:07 06/06/17 21:29 Bedside Glucose 153 mg/dl 137 mg/dl 156 mg/dl Assessment and Plan A/P: Jodi Glabrata UTI AFVSS. Continue amphotericin B CBI per Dr. Martinez's orders. We have discussed his risk for clot and pneumonia by refusing to get out of bed for PT. Hopeful for d/c home Saturday- as planned.
[2017-06-07] MEDS ORDERED: AMPHOTERICIN B IRRIGATION INJ 50 MG in STERILE WATER 1000 ML 1,000 ML IR SCH (09:00)
[2017-06-07] MEDS: INSULIN ASPART 100 UNITS/ML 3 ML PEN SC SCH ×4 (09:49→21:00)
[2017-06-07] MEDS: INSULIN GLARGINE SOLOSTAR 100 UNITS/ML 3 ML PEN SC SCH (13:18)
[2017-06-07 15:02] VITALS: BP 120/66; PULSE 54; TEMP 37; O2SAT 94
[2017-06-07] MEDS: HYDROmorphone INJ 1 MG/ML SYR IV PRN (15:54)
[2017-06-07] MEDS: ISOSORBIDE MONONITRATE 60 MG TABCR PO SCH (21:24)
[2017-06-07] MEDS: PANTOprazole SOD 40 MG TAB PO SCH (21:25)
[2017-06-07] MEDS: ATORVASTATIN 40 MG TAB PO SCH (21:25)
[2017-06-07 21:27] VITALS: BP 115/70
[2017-06-07] MEDS: AMPHOTERICIN B IRRIGATION IR SCH ×2 (22:28)
[2017-06-07] MEDS: STERILE WATER IR SCH ×2 (22:28)
[2017-06-07 23:04] VITALS: BP 159/76; PULSE 71; TEMP 36.8; O2SAT 93
[2017-06-08] MEDS: HYDROmorphone INJ 1 MG/ML SYR IV PRN ×2 (00:08→05:36)
[2017-06-08] MEDS: OXYCODONE HCL IR 5 MG TAB (IMMEDIATE RELEASE) PO PRN ×3 (03:48→23:10)
[2017-06-08 06:49] VITALS: BP 136/69; PULSE 52; TEMP 36.6; O2SAT 92
[2017-06-08] MEDS: DOCUSATE SODIUM 100 MG CAP PO SCH ×2 (09:00→21:00)
[2017-06-08] MEDS: CLOPIDOGREL BISULFATE 75 MG TAB PO SCH (09:18)
[2017-06-08] MEDS: MULTIVITAMIN TAB PO SCH (09:18)
[2017-06-08] MEDS: ALFUZosin TAB 10 MG TAB PO SCH (09:18)
[2017-06-08] MEDS: OXYBUTYNIN CHLORIDE 5 MG TAB PO PRN ×2 (09:18→17:57)
[2017-06-08] MEDS: ASPIRIN 81 MG ECTAB PO SCH (09:18)
[2017-06-08] MEDS: LOSARTAN POTASSIUM 50 MG TAB PO SCH (09:18)
[2017-06-08] MEDS: POTASSIUM CHLORIDE 10 MEQ TABCR PO SCH (09:18)
[2017-06-08] MEDS: HYDROCHLOROTHIAZIDE 25 MG TAB PO SCH (09:18)
[2017-06-08] MEDS: PT'S OWN MED: DUTASTERIDE 0.5MG PO SCH (09:19)
[2017-06-08] MEDS: INSULIN ASPART 100 UNITS/ML 3 ML PEN SC SCH ×4 (09:26→21:07)
[2017-06-08] MEDS: INSULIN GLARGINE SOLOSTAR 100 UNITS/ML 3 ML PEN SC SCH (09:27)
[2017-06-08] MEDS: OXYCODONE HCL 10 MG TABCR (OXYCONTIN) PO SCH ×2 (09:30→21:02)
--- NOTE | 2017-06-08 12:14 | Progress Note ---
Progress Note Date of Service Jun 08, 2017. Progress Note Patient is afebrile vital signs are stable No Complaints offered Amphotericin bladder irrigations going well Urine is clear We'll continue the amphotericin for a full 5 days
[2017-06-08 14:56] VITALS: BP 90/53; PULSE 61; TEMP 37.1; O2SAT 93
[2017-06-08 21:00] VITALS: BP 144/78
[2017-06-08] MEDS: ISOSORBIDE MONONITRATE 60 MG TABCR PO SCH (21:03)
[2017-06-08] MEDS: ATORVASTATIN 40 MG TAB PO SCH (21:03)
[2017-06-08] MEDS: PANTOprazole SOD 40 MG TAB PO SCH (21:04)
[2017-06-08 22:54] VITALS: BP 124/74; PULSE 62; TEMP 36.7; O2SAT 93
[2017-06-08] MEDS: AMPHOTERICIN B IRRIGATION IR SCH ×2 (23:05)
[2017-06-08] MEDS: STERILE WATER IR SCH ×2 (23:05)
[2017-06-09] MEDS: HYDROmorphone INJ 1 MG/ML SYR IV PRN (01:23)
[2017-06-09] MEDS: OXYCODONE HCL IR 5 MG TAB (IMMEDIATE RELEASE) PO PRN ×3 (04:58→23:30)
[2017-06-09 07:28] VITALS: BP 146/74; PULSE 66; TEMP 36.7; O2SAT 92
[2017-06-09] MEDS: DOCUSATE SODIUM 100 MG CAP PO SCH ×2 (09:00→20:38)
[2017-06-09] MEDS: PT'S OWN MED: DUTASTERIDE 0.5MG PO SCH (09:00)
[2017-06-09] MEDS: POTASSIUM CHLORIDE 10 MEQ TABCR PO SCH (09:42)
[2017-06-09] MEDS: HYDROCHLOROTHIAZIDE 25 MG TAB PO SCH (09:43)
[2017-06-09] MEDS: LOSARTAN POTASSIUM 50 MG TAB PO SCH (09:43)
[2017-06-09] MEDS: OXYBUTYNIN CHLORIDE 5 MG TAB PO PRN ×2 (09:43→19:26)
[2017-06-09] MEDS: MULTIVITAMIN TAB PO SCH (09:44)
[2017-06-09] MEDS: ALFUZosin TAB 10 MG TAB PO SCH (09:44)
[2017-06-09] MEDS: CLOPIDOGREL BISULFATE 75 MG TAB PO SCH (09:44)
[2017-06-09] MEDS: ASPIRIN 81 MG ECTAB PO SCH (09:44)
[2017-06-09] MEDS: OXYCODONE HCL 10 MG TABCR (OXYCONTIN) PO SCH ×2 (09:47→20:43)
[2017-06-09] MEDS: INSULIN ASPART 100 UNITS/ML 3 ML PEN SC SCH ×4 (09:52→20:44)
[2017-06-09] MEDS: INSULIN GLARGINE SOLOSTAR 100 UNITS/ML 3 ML PEN SC SCH (09:53)
--- NOTE | 2017-06-09 10:52 | Progress Note ---
Progress Note Date of Service Jun 09, 2017. Progress Note Day 5 of amphotericin B bladder irrigation Afebrile vital signs are stable No complaints offered Urine clear Plan is to discontinue the irrigation tomorrow
--- NOTE | 2017-06-09 13:45 | Pharmacy Progress Note ---
Pharmacy Glycemic Short Note 2 Date of Service Jun 09, 2017. Test 06/08/17 17:20 06/08/17 20:21 06/09/17 08:10 06/09/17 12:20 Bedside Glucose 152 mg/dl (70-99) 148 mg/dl (70-99) 128 mg/dl (70-99) 241 mg/dl (70-99) Test 06/06/17 06:34 Hemoglobin A1c 7.1 % (4.5-5.6) H Outpatient Anti-diabetic Regimen: * Glimepiride 2 mg po BID + metformin 1 gm BID and 500 mg with lunch ASSESSMENT: * 82 yr old T2DM male admitted for amphotericin bladder irrigation due to fungal UTI, day 5 of irrigation, pt afebrile, vitals stable, urine clear, plan to d/c irrigation tomorrow * Blood sugars at goal on basal bolus regimen except for BSG prior to lunch is elevated, no changes in regimen at this time PLAN FOR INPATIENT GLYCEMIC CONTROL: * Hold outpatient oral diabetes medications * Basal insulin * Lantus 16 units SQ DAILY * Bolus insulin * NovoLog per scale ACHS or Q6hrs while NPO * Goal Range: Low 110 mg/dL - High 140 mg/dL * Correction Factor: 20 mg/dL/unit * Nutritional / Prandial insulin per carb ratio of 1 unit per 6 grams CHO consumed PLAN FOR DISCHARGE: * A1c = 7.1% - continue current regimen
[2017-06-09 15:13] VITALS: BP 94/52; PULSE 54; TEMP 37; O2SAT 91
[2017-06-09 15:35] VITALS: O2SAT 91
[2017-06-09] MEDS: PANTOprazole SOD 40 MG TAB PO SCH (20:40)
[2017-06-09] MEDS: ATORVASTATIN 40 MG TAB PO SCH (20:40)
[2017-06-09] MEDS: ISOSORBIDE MONONITRATE 60 MG TABCR PO SCH (20:41)
[2017-06-09 22:43] VITALS: BP 132/75; PULSE 54; TEMP 36.7; O2SAT 92
[2017-06-09] MEDS: STERILE WATER IR SCH ×2 (22:54)
[2017-06-09] MEDS: AMPHOTERICIN B IRRIGATION IR SCH ×2 (22:54)
[2017-06-10 04:46] VITALS: BP 150/71; PULSE 68; TEMP 36.9; O2SAT 93
[2017-06-10] MEDS: OXYBUTYNIN CHLORIDE 5 MG TAB PO PRN (06:26)
[2017-06-10] MEDS: OXYCODONE HCL IR 5 MG TAB (IMMEDIATE RELEASE) PO PRN (06:27)
[2017-06-10 07:47] VITALS: BP 150/78; PULSE 52; TEMP 36.5; O2SAT 94
[2017-06-10] MEDS: PT'S OWN MED: DUTASTERIDE 0.5MG PO SCH (08:46)
[2017-06-10] MEDS: MULTIVITAMIN TAB PO SCH (08:47)
[2017-06-10] MEDS: LOSARTAN POTASSIUM 50 MG TAB PO SCH (08:47)
[2017-06-10] MEDS: ALFUZosin TAB 10 MG TAB PO SCH (08:47)
[2017-06-10] MEDS: HYDROCHLOROTHIAZIDE 25 MG TAB PO SCH (08:47)
[2017-06-10] MEDS: POTASSIUM CHLORIDE 10 MEQ TABCR PO SCH (08:48)
[2017-06-10] MEDS: ASPIRIN 81 MG ECTAB PO SCH (08:49)
[2017-06-10] MEDS: CLOPIDOGREL BISULFATE 75 MG TAB PO SCH (08:50)
[2017-06-10] MEDS: DOCUSATE SODIUM 100 MG CAP PO SCH (08:50)
[2017-06-10] MEDS: OXYCODONE HCL 10 MG TABCR (OXYCONTIN) PO SCH (08:52)
[2017-06-10] MEDS: INSULIN ASPART 100 UNITS/ML 3 ML PEN SC SCH (08:57)
[2017-06-10] MEDS: INSULIN GLARGINE SOLOSTAR 100 UNITS/ML 3 ML PEN SC SCH (08:58)
[2017-06-10 09:19] VITALS: O2SAT 94
--- NOTE | 2017-06-10 09:21 | Pharmacy Progress Note ---
Glycemic: Assessment & Plan Date of Service Jun 10, 2017. Assessment & Plan Outpatient Anti-diabetic Regimen: * Glimepiride 2 mg po BID + metformin 1 gm BID and 500 mg with lunch ASSESSMENT: * 82 yr old T2DM male admitted for amphotericin bladder irrigation due to fungal UTI, day 6 of irrigation, pt afebrile, vitals stable, urine clear, plan to d/c irrigation today * Blood sugars at goal on basal bolus regimen except for BSG prior to lunch is elevated, but breakfast given late most of these days, no changes in regimen at this time PLAN FOR INPATIENT GLYCEMIC CONTROL: * Hold outpatient oral diabetes medications * Basal insulin * Lantus 16 units SQ DAILY * Bolus insulin * NovoLog per scale ACHS or Q6hrs while NPO * Goal Range: Low 110 mg/dL - High 140 mg/dL * Correction Factor: 20 mg/dL/unit * Nutritional / Prandial insulin per carb ratio of 1 unit per 6 grams CHO consumed PLAN FOR DISCHARGE: * A1c = 7.1% - continue current regimen BSGs continue to improve, no changes needed to inpatient regimen at this time. Pharmacy will continue to monitor patient daily and write orders per [facility] inpatient glycemic control protocol. Thanks. * Please note that the plan above was derived based on current level of insulin resistance and hospital stress. These recommendations are appropriate for inpatient admission only. Plan of care upon discharge will need to be reassessed to avoid potential outpatient hypo/hyperglycemia.
--- NOTE | 2017-06-10 10:20 | Progress Note ---
Subjective Date of Service: Jun 10, 2017. Subjective Pt evaluation today including: conversation w/ patient, chart review, lab review Voiding: kyle catheter in place (Patent, draining clear yellow urine with small old clot. Dark old blood noted in drainage bag as well.) 82 yo male with Jodi Glabrata UTI. Pt continues to c/o bladder spasms. Denies other pain. Repeat UC&S while inpatient noted to be negative. Kyle draining clear, yellow urine with some old blood and clot noted in tubing and drainage bag this morning. CBI with amphotericin B continues to be running. Problem List Medical Problems: (1) Cellulitis of left lower leg Status: Acute (2) Kyle catheter problem Status: Acute (3) Urinary retention Status: Acute (4) Urinary retention Status: Acute (5) Wound infection Status: Acute Review of Systems Constitutional: No fever, No chills Respiratory: No shortness of breath Cardiac: No chest pain Abdomen: + pain (suprapubic bladder pain ), No nausea, No vomiting Male : + hematuria Heme: No abnormal bleeding/bruising Objective Vital Signs Date Time Temp Pulse Resp B/P (MAP) Pulse Ox O2 Delivery O2 Flow Rate FiO2 06/10/17 09:19 94 Room Air 06/10/17 07:47 36.5 52 18 150/78 (102) 94 Room Air 06/10/17 07:44 Room Air 06/10/17 04:46 36.9 68 22 150/71 (97) 93 Room Air 06/09/17 23:30 Room Air 06/09/17 22:43 36.7 54 18 132/75 (94) 92 Room Air 06/09/17 15:35 91 Room Air 06/09/17 15:13 37.0 54 18 94/52 (66) 91 Room Air 06/09/17 10:37 Room Air Physical Exam General Appearance: no apparent distress, + obese Eyes: normal inspection ENT: hearing grossly normal Neck: no JVD Respiratory/Chest: no respiratory distress, no accessory muscle use Cardiovascular: no JVD Extremities: normal inspection Neurologic/Psychiatric: alert, normal mood/affect, oriented x 3 Skin: normal color Laboratory Results Last 24 Hours Test 06/09/17 12:20 06/09/17 16:57 06/09/17 20:31 06/10/17 07:58 Bedside Glucose 241 mg/dl 141 mg/dl 108 mg/dl 124 mg/dl Assessment and Plan A/P: Jodi Glabrata UTI, gross hematuria Pt has completed course of Amphotericin B bladder irrigation. Will d/c irrigation and kyle this morning. TOV. Plan for d/c home this morning. Will send a cytology for gross hematuria. Plan for repeat cysto with Dr. Martinez as an outpatient in 2 weeks.
--- NOTE | 2017-06-10 10:22 | Discharge Instructions ---
Discharge Instructions Date of Service Jun 10, 2017. Admission Reason for Admission: Fungal Uti Discharge Discharge Diagnosis / Problem: Fungal UTI Discharge Goals Goal(s): Decrease discomfort, Increase independence, Improve disease control, Therapeutic intervention Activity Recommendations Activity Limitations: as noted below Lifting Limitations: none Exercise/Sports Limitations: as tolerated Shower/Bathe: no limitations Driving or Machine Use: no limitations . Current Hospital Diet Patient's current hospital diet: Diabetes Type 2 Diet Discharge Diet Recommended Diet: Diabetes Type 2 Diet Pending Studies Studies pending at discharge: no Laboratory Results Hemoglobin A1c Test 06/06/17 06:34 Range/Units Estimated Average Glucose 157 mg/dl Hemoglobin A1c 7.1 H 4.5-5.6 % Medical Emergencies . Who to Call and When: Medical Emergencies: If at any time you feel your situation is an emergency, please call 911 immediately. . Non-Emergent Contact Non-Emergency issues call your: Urologist Call Non-Emergent contact if: temperature is above 101.5, your pain is not controlled, your pain is worsening, your pain is unusual for you, your pain is concerning you, you have any medication questions . . "Provider Documentation" section prepared by Rocio Tovar. . VTE Core Measure Inpt VTE Proph given/why not?: Other Anticoagulation (Plavix), SCD's [place] Drug Monitoring Program Search Results: patient reviewed within database, see additional documentation (chronic standing prescriptions for oxycodone.)
--- NOTE | 2017-06-10 11:09 | Discharge Summary ---
Discharge Summary Date of Service Jun 10, 2017. Discharge Summary Admission Date: Jun 05, 2017 at 07:03 Discharge Date: Jun 10, 2017 Discharge Disposition: Home Principal Diagnosis: Jodi Glabrata UTI Immunizations: Have You Had Influenza Vaccine: No History of Tetanus Vaccine?: Unknown History of Pneumococcal: Yes Pneumococcal Date: Apr 26, 2004 History of Hepatitis B Vaccine: No Procedures: None. Consultations: Hospitalist Medication Reconciliation Continued Medications: Alfuzosin Hcl (Uroxatral) 10 Mg Tab 10 MG PO QAM, TAB Aspirin (Aspirin Ec) 81 Mg Tab 81 MG PO QAM Atenolol (Atenolol) 50 Mg Tab 50 MG PO QAM Atorvastatin (Atorvastatin Calcium) 40 Mg Tab 40 MG PO HS Clopidogrel (Plavix) 75 Mg Tab 75 MG PO DAILY, TAB Dutasteride (Avodart) 0.5 Mg Cap 0.5 MG PO QAM, CAP Esomeprazole Magnesium (Nexium) 40 Mg Capcr 40 MG PO QPM Glimepiride (Glimepiride) 2 Mg Tab 2 MG PO BID Plixymstiyr-Exnqsrahcjo-Hzk C- (Glucosamine 1500 Complex) 1 Cap Cap 2 CAP PO DAILY Hydrochlorothiazide (Hydrochlorothiazide) 25 Mg Tab 25 MG PO QAM Isosorbide Mononitrate Ext Rel (Imdur Ext Rel) 120 Mg Ertab 180 MG PO QPM Losartan Potassium (Cozaar) 100 Mg Tab 100 MG PO QAM Metformin Hcl (Glucophage) 1,000 Mg Tab 1000 MG PO BID, TAB TAKE THIS MEDICATION WITH MORNING AND EVENING MEALS Metformin Hcl (Glucophage) 1,000 Mg Tab 500 MG PO WITH LUNCH, TAB TAKE HALF A TABLET (500 MG) DAILY WITH LUNCH Multivitamin (Multivitamin) Tab 1 TAB PO QAM Niacin (Niacin) 500 Mg Tab 1000 MG PO QPM Nitroglycerin (Nitrostat) 0.4 Mg Sub 0.4 MG UT UD PRN for Chest Pain, BTL Oxycodone HCl (Oxycodone HCl ER) 10 Mg Tab 10 MG PO BID Oxycodone Ir (Roxicodone Ir) 5 Mg Tab 5 MG PO Q6H PRN for Pain, TAB Potassium Chloride (Potassium Chloride Er) 10 Meq Tab 10 MEQ PO QAM [place] ([place]) ([place]) 450 Mg Cap 450 MG PO QAM [Oxybutynin] () 2.5 MG PO TID PRN for PRN Discharge Exam Review of Systems: Constitutional: No fever, No chills Respiratory: No shortness of breath Cardiovascular: No chest pain Abdomen: No pain, No nausea, No vomiting Genitourinary - Male: + hematuria Hematologic / Lymphatic: No abnormal bleeding/bruising Physical Exam: General Appearance: no apparent distress, + obese Eyes: normal inspection ENT: hearing grossly normal Neck: no JVD Respiratory/Chest: no respiratory distress, no accessory muscle use Cardiovascular: no JVD Neurologic/Psychiatric: alert, normal mood/affect, normal reflexes Skin: normal color Hospital Course Jodi Glabrata UTI, gross hematuria Pt admitted for 5 day course of amphotericin B bladder instillations to tx Jodi Glabrata UTI. Pt initially started on instillations, but was switched to amphotericin B CBI by Dr. Martinez as the pt was experiencing bladder spasms and leaking around the catheter with instillations. Pt has completed 5 day course of Amphotericin B bladder irrigation. Will d/c irrigation and kyle this morning. Trial of void now. Repeat UC&S noted to be negative. Plan for d/c home this morning. Will send a cytology for gross hematuria. Plan for repeat cysto with Dr. Martinez as an outpatient in 2 weeks. Total Time Spent: Less than 30 minutes This includes examination of the patient, discharge planning, medication reconciliation, and communication with other providers. Discharge Instructions Please refer to the electronic Patient Visit Report (Discharge Instructions) for additional information. Follow-Up Follow-up with Dr. Martinez for cysto in 2 weeks as scheduled.
[2017-06-10 11:36] VITALS: BP 150/78; PULSE 52; TEMP 36.5; O2SAT 94
== END 2017-06-10 12:08 | disposition home or self-care (01) | DRG 728 ==
LOC: C.MSN 07:03
PROVIDERS: ADMIT Urology; ATTEND Internal Medicine Sports Medicine
PROC: 3E0K7GC Introduction of Other Therapeutic Substance into Genitourinary Tract, Via Natural or Artificial Opening (ICD-10-PCS; principal; 2017-06-06)
DX: B37.49 Other urogenital candidiasis (principal); L03.116 Cellulitis of left lower limb; N40.1 Benign prostatic hyperplasia with lower urinary tract symptoms; E11.9 Type 2 diabetes mellitus without complications; E66.9 Obesity, unspecified; I10 Essential (primary) hypertension; E78.5 Hyperlipidemia, unspecified; K21.9 Gastro-esophageal reflux disease without esophagitis; I25.10 Atherosclerotic heart disease of native coronary artery without angina pectoris; I25.2 Old myocardial infarction; Z95.1 Presence of aortocoronary bypass graft; R33.9 Retention of urine, unspecified; Z87.891 Personal history of nicotine dependence; Z79.84 Long term (current) use of oral hypoglycemic drugs

== ENCOUNTER 2017-06-12 08:11 | Inpatient (IN) | payer OTHER ==
[~2017-06-12] VITALS: Ht 175.3 cm; Wt 133.4 kg
[2017-06-12] VITALS (13 sets, daily range): BP systolic 80–169; BP diastolic 49–100; PULSE 54–70; TEMP 36.3–36.8; O2SAT 94–99; Ht 175.3 cm; Wt 133.4 kg
[~2017-06-12 08:11] MED LIST changes: -BICA50TA2 PO; -NITROGLYCERIN 0.4 MG SL PER TAB CHARGE UT PRN; -PHARMACY GLYCEMIC MGMT CONSULT PRN
[2017-06-12 08:49] LABS: BASO % 0.4 %; BASO ABS # 0.02 K/uL (0-0.2); EOS % 2.1 %; EOS ABS # 0.12 K/uL (0-0.5); HEMATOCRIT 26.6 % (42-52); HEMOGLOBIN 8.5 g/dL (14.0-18.0); IG# 0.02 K/uL (0.00-0.02); LYMPH % 11.6 %; LYMPH ABS # 0.65 K/uL (1.2-3.4); MEAN CELL VOLUME 95.3 fL (80-100); MEAN CORPUSCULAR HEMOGLOBIN 30.5 pg (25-34); MEAN PLATELET VOLUME 9.6 fL (7.4-10.4); MONO ABS # 0.45 K/uL (0.11-0.59); NEUT % 77.5 %; NEUT ABS # 4.34 K/uL (1.4-6.5); PLATELET COUNT 208 K/uL (130-400); RED CELL DISTRIBUTION WIDTH SD 52.6 fL (36.4-46.3)
[2017-06-12 08:52] LABS: INR 1.1 (0.9-1.1); PTT PATIENT 23.1 SECONDS (21.0-31.0)
[2017-06-12 09:05] LABS: ISTAT CREATININE 1.1 mg/dl (0.6-1.3); ISTAT IONIZED CALCIUM 1.12 mmol/l (1.12-1.32); ISTAT POTASSIUM 4.8 mEq/L (3.3-5.0)
[2017-06-12 09:27] LABS: ALBUMIN 2.8 gm/dl (3.4-5.0); ALKALINE PHOSPHATASE 68 U/L (45-117); ALT/SGPT 21 U/L (12-78); AST/SGOT 18 U/L (15-37); BLOOD UREA NITROGEN 38 mg/dl (7-18); CALCIUM 8.3 mg/dl (8.5-10.1); CARBON DIOXIDE 27 mmol/L (21-32); CKMB 1.6 ng/ml (0.5-3.6); CREATININE 1.25 mg/dl (0.60-1.40); GLUCOSE 183 mg/dl (70-99); LIPASE 104 U/L (73-393); POTASSIUM 4.7 mmol/L (3.5-5.1); SODIUM 139 mmol/L (136-145); TOTAL PROTEIN 6.2 gm/dl (6.4-8.2)
[2017-06-12] MEDS ORDERED: PANTOprazole INJ 80 MG in DEXTROSE 5% 100ML IV SCH (09:30)
[2017-06-12] MEDS ORDERED: ONDANSETRON INJ 2 MG/ML 2 ML VIAL IV PRN (09:45)
[2017-06-12] MEDS ORDERED: ACETAMINOPHEN 325 MG TAB PO PRN (09:45)
[2017-06-12] MEDS ORDERED: PANTOprazole INJ 40 MG in DEXTROSE 5% 100ML IV SCH (09:45)
[2017-06-12] MEDS ORDERED: OXYBUTYNIN CHLORIDE 5 MG TAB PO PRN (09:45)
--- NOTE | 2017-06-12 10:04 | History and Physical ---
History & Physical Date & Time of Service: Jun 12, 2017 at 09:54 Chief Complaint: Gi Assessment Primary Care Physician: Kori Parmar D.O. History of Present Illness Source: patient, family This is a 82 yo M who was recently discharged from urology service on 06/10 after five days of amphotericin B bladder instillation for Jodi Glabrata UTI. He has a past medical history of CAD s/p SC and CABG, GERD, HTN, HLD, adenocarcinoma of prostate s/p TURP and XRT, BPH, DMII, lymphedema bilateral lower extremities with chronic left edema. The patient presents today with acute onset of BRBPR which started at midnight last night. He has had a bowel movement every 2 hours since then, and seems to be the same in volume and continues to be bright red. He denies any nausea, vomiting, abd pain, cramping or spasm. Pt notes he also noticed nonpainful passing of clots with urination starting last night around 6 pm. He denies difficulty with urination or retention at this time. He admits to feeling dizzy with even rolling in bed for me to auscultate his lungs, and notes he looks extremely pale at this time. Pt notes he has had rectal bleeding 4x in the past and has required 3 U of PRBC but that was over 10 years ago. He had a colonoscopy with Dr. Garza within the past year and reports was able to have another in 1 year. He has also had an endoscopy which showed Barrettes esophagus. Hgb at time of admission is 8.5, and has had 1 bowel movement since that check. BP is low at 105/55 during my exam, HR=66 Will order 1 L NSS bolus stat and follow with maintenance fluids Ordered another 18 g peripheral line as only one in place currently. Past Medical/Surgical History Medical Problems: (1) Anemia Status: Chronic (2) Angina Status: Chronic (3) Benign hypertension Status: Chronic (4) Cellulitis Status: Chronic (5) Coronary artery bypass grafting Status: Resolved (6) Diabetes mellitus Status: Chronic (7) Hyperlipidemia Status: Chronic (8) Left ventricular diastolic dysfunction Status: Chronic (9) Myocardial infarction Status: Chronic (10) Obesity Status: Chronic (11) Osteoarthritis Status: Chronic (12) REFLUX ESOPHAGITIS Status: Chronic Surgical Hx CABG x 4 vessels Foot surgery L hip replacement Knee replacement Cath laser angioplasty Family History Diabetes mellitus FH: prostate cancer FHx: colon cancer Hypertension Mother: Colon cancer, arthritis, HTN Father: heart disease, HTN Brother: Heart disease, prostate Cx Maternal Grandmother: DM II Social History Smoking Status: Former Smoker Smokeless Tobacco Use: No Alcohol Use: rarely Drug Use: none Marital Status: Housing status: lives with family Occupational Status: retired Immunizations History of Influenza Vaccine: No History of Tetanus Vaccine?: Unknown History of Pneumococcal: Yes Pneumococcal Date: Apr 26, 2004 History of Hepatitis B Vaccine: No Multi-Drug Resistant Organisms History of MDRO: No Allergies Coded Allergies: Adhesives (Verified Allergy, Unknown, DRAPES TORE PT'S SKIN OFF, 06/12/17) Bee Venom (Verified Allergy, Unknown, SWELLING, 06/12/17) Diclofenac (Verified Allergy, Unknown, 06/12/17) Naproxen (Verified Allergy, Unknown, 06/12/17) Amoxicillin (Verified Adverse Reaction, Unknown, CAUSES DIARRHEA, 06/12/17) Celecoxib (Verified Adverse Reaction, Unknown, gi bleed, 06/12/17) Home Medications Scheduled Alfuzosin Hcl (Uroxatral), 10 MG PO QAM Atenolol (Atenolol), 50 MG PO QAM Atorvastatin (Atorvastatin Calcium), 40 MG PO HS Dutasteride (Avodart), 0.5 MG PO QAM Esomeprazole Magnesium (Nexium), 40 MG PO QPM Glimepiride (Glimepiride), 2 MG PO BID Yqlejvnnjpo-Vlrqsxality-Qoe C- (Glucosamine 1500 Complex), 2 CAP PO DAILY Hydrochlorothiazide (Hydrochlorothiazide), 25 MG PO QAM Isosorbide Mononitrate Ext Rel (Imdur Ext Rel), 180 MG PO QPM Losartan Potassium (Cozaar), 100 MG PO QAM Metformin Hcl (Glucophage), 1,000 MG PO BID Metformin Hcl (Glucophage), 500 MG PO WITH LUNCH Multivitamin (Multivitamin), 1 TAB PO QAM Niacin (Niacin), 1,000 MG PO QPM Oxycodone HCl (Oxycodone HCl ER), 10 MG PO BID Potassium Chloride (Potassium Chloride Er), 10 MEQ PO QAM [place] (Serenoa Repens) (S[place]), 450 MG PO QAM Scheduled PRN Nitroglycerin (Nitrostat), 0.4 MG UT UD PRN for Chest Pain Oxycodone Ir (Roxicodone Ir), 5 MG PO Q6H PRN for Pain [Oxybutynin], 2.5 MG PO TID PRN for PRN Review of Systems Constitutional: No fever, No chills, No sweats, No fatigue Eyes: No worsening of vision, No redness, No diplopia ENT: No sore throat, No tinnitus, No trouble swallowing Respiratory: No cough, No sputum, No wheezing, No shortness of breath, No dyspnea on exertion Cardiovascular: No chest pain, No orthopnea, No palpitations Abdomen: + GI bleeding (see HPI), No pain, No nausea, No vomiting Musculoskeletal: + swelling (chronic lymphadema BLE), No joint pain Genitourinary - Male: + hematuria, No dysuria, No urinary frequency, No urinary hesitancy, No urinary retention Neurologic: + weakness, No numbness/tingling, No balance problems Endocrine: No fatigue Integumentary: No rash, No itch Physical Exam Vital Signs Date Time Temp Pulse Resp B/P (MAP) Pulse Ox O2 Delivery O2 Flow Rate FiO2 06/12/17 08:38 95 Room Air 06/12/17 08:22 36.9 66 18 105/55 95 Room Air 06/12/17 08:21 65 General Appearance: WD/WN, + mild distress, + obese, + pertinent finding (pale) Head: normocephalic, atraumatic Eyes: PERRL, EOMI ENT: hearing grossly normal, pharynx normal, + pertinent finding (MMM) Neck: supple, no JVD Respiratory/Chest: lungs clear, no respiratory distress, no accessory muscle use Cardiovascular: regular rate, rhythm, no murmur, normal peripheral pulses, + bradycardia Abdomen/GI: normal bowel sounds, non tender, soft, + fecal occult blood (SHANE performed by ER physician) Back: normal inspection, no muscle spasm Extremities/Musculoskelatal: no calf tenderness, + pedal edema (2+ nonpitting edema BLE) Neurologic/Psych: alert, normal mood/affect, oriented x 3 Skin: warm/dry, + pallor Diagnostics Laboratory Results Results Past 24 Hours Test 06/12/17 08:25 06/12/17 08:52 Range/Units White Blood Count 5.60 4.8-10.8 K/uL Red Blood Count 2.79 4.7-6.1 M/uL Hemoglobin 8.5 14.0-18.0 g/dL Hematocrit 26.6 42-52 % Mean Corpuscular Volume 95.3 80-100 fL Mean Corpuscular Hemoglobin 30.5 25-34 pg Mean Corpuscular Hemoglobin Concent 32.0 32-36 g/dl Platelet Count 208 130-400 K/uL Mean Platelet Volume 9.6 7.4-10.4 fL Neutrophils (%) (Auto) 77.5 % Lymphocytes (%) (Auto) 11.6 % Monocytes (%) (Auto) 8.0 % Eosinophils (%) (Auto) 2.1 % Basophils (%) (Auto) 0.4 % Neutrophils # (Auto) 4.34 1.4-6.5 K/uL Lymphocytes # (Auto) 0.65 1.2-3.4 K/uL Monocytes # (Auto) 0.45 0.11-0.59 K/uL Eosinophils # (Auto) 0.12 0-0.5 K/uL Basophils # (Auto) 0.02 0-0.2 K/uL RDW Standard Deviation 52.6 36.4-46.3 fL RDW Coefficient of Variation 15.0 11.5-14.5 % Immature Granulocyte % (Auto) 0.4 % Immature Granulocyte # (Auto) 0.02 0.00-0.02 K/uL Red Blood Cell Morphology Unremarkable Prothrombin Time 11.1 9.0-12.0 SECONDS Prothromb Time International Ratio 1.1 0.9-1.1 Activated Partial Thromboplast Time 23.1 21.0-31.0 SECONDS Partial Thromboplastin Ratio 0.9 Sodium Level 139 136-145 mmol/L Potassium Level 4.7 3.5-5.1 mmol/L Chloride Level 104 98-107 mmol/L Carbon Dioxide Level 27 21-32 mmol/L Anion Gap 8.0 17.0 16-25 mmol/L Blood Urea Nitrogen 38 7-18 mg/dl Creatinine 1.25 0.60-1.40 mg/dl Est Creatinine Clear Calc Drug Dose 59.1 ml/min Estimated GFR () 61.3 Estimated GFR (Non- 52.9 BUN/Creatinine Ratio 30.2 10-20 Random Glucose 183 70-99 mg/dl Calcium Level 8.3 8.5-10.1 mg/dl Total Bilirubin 0.4 0.2-1 mg/dl Direct Bilirubin 0.1 0-0.2 mg/dl Aspartate Amino Transf (AST/SGOT) 18 15-37 U/L Alanine Aminotransferase (ALT/SGPT) 21 12-78 U/L Alkaline Phosphatase 68 45-117 U/L Total Creatine Kinase 114 39-308 U/L Creatine Kinase MB 1.6 0.5-3.6 ng/ml Creatine Kinase MB Ratio 1.4 0-3.0 Troponin I < 0.015 0-0.045 ng/ml Total Protein 6.2 6.4-8.2 gm/dl Albumin 2.8 3.4-5.0 gm/dl Lipase 104 73-393 U/L Bedside Hemoglobin 8.2 14.0-18.0 g/dl Bedside Hematocrit 24 42-52 % Bedside Sodium 139 135-144 mEq/L Bedside Potassium 4.8 3.3-5.0 mEq/L Bedside Chloride 100 101-112 mEq/L Bedside Total CO2 28 24-31 mEq/l Bedside Blood Urea Nitrogen 42 7-18 mg/dl Bedside Creatinine 1.1 0.6-1.3 mg/dl Bedside Glucose (other) 191 70-99 mg/dl Bedside Ionized Calcium (Sanchez) 1.12 1.12-1.32 mmol/l EKG Sinus rhythm with occasional Premature ventricular complexes Right bundle branch block Left anterior fascicular block Bifascicular block Vent. rate 67 BPM PA interval 186 ms QRS duration 156 ms QT/QTc 436/460 ms P-R-T axes 65 -80 50 Impression Assessment and Plan Mr. Hallman is an 82 yo M was recently discharged from urology service on 06/10 after five days of amphotericin B bladder instillation for Jodi Glabrata UTI. He has a past medical history of CAD s/p SC and CABG, GERD, HTN, HLD, adenocarcinoma s/p TURP and radiation, BPH, DMII, lymphedema bilateral lower extremities now presenting with a GI bleed which appears to be lower GI with BRBPR. Pt is slightly hypotensive and receiving fluid resuscitation. GI Bleed - Will admit to tele - Consulted GI, pt has seen Dr. Garza in the past, reports his last colonoscopy was 1 year ago - Hold plavix and asa - protonix IV BID, no need for gtt - Will order NSS bolus 1000ml, followed by maintenance of 150 mL/hr and follow since BP is now running lower - Hold all antihypertensives at this time - SHANE completed by attending in ER, [place] bright red blood in toilet after bowel movement Hematuria - Dark red and Passing clots since last evening around 6 pm. - Pt recently treated for fungal uti - Consult urology since he was recently discharged from their service and now with clot- possible that this is residual from bladder kyle irrigation, or residual cystitis since being on plavix. Will await formal recommendations. Fungal UTI - completed 5 days of amphotericin B bladder instillations on 06/10 - Urology consult as above Hx Prostate Cancer - s/p TURP and XRT. Recently stopped Casodex. 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 - Continue Oxy IR as scheduled. Pt can not afford oxycontin ER as an outpatient so would not recommend that here in hospital. DVT ppx: no chemical anticoagulation at this time due to GI bleed CODE STATUS: FULL CODE Disposition: From home, lives with Level of Care Telemetry Resuscitation Status FULL RESUSCITATION VTE Prophylaxis VTE Risk Assessment Done? Y/N: Yes Risk Level: Low Given or contraindicated: Contraindicated Note I agree with above note. I discussed plan of care with patient and APC. MY EXAM IS BELOW: General Appearance: WD/WN, + moderate distress, + obese, + pertinent finding ( pale) Head: normocephalic, atraumatic Eyes: PERRL, EOMI ENT: hearing grossly normal, pharynx normal Neck: supple, no JVD Respiratory/Chest: lungs clear, no respiratory distress, no accessory muscle use Cardiovascular: regular rate, rhythm, no murmur, normal peripheral pulses, + bradycardia Abdomen/GI: normal bowel sounds, non tender, soft, Back: normal inspection, no muscle spasm Extremities/Musculoskelatal: no calf tenderness, + pedal edema (2+ nonpitting edema BLE) Neurologic/Psych: alert, normal mood/affect, oriented x 3 Skin: warm/dry
[2017-06-12] MEDS ORDERED: GLUCOSE 10 TABS/TUBE PO PRN (11:15)
[2017-06-12] MEDS ORDERED: DEXTROSE 50% 50 ML SYR IV PRN (11:15)
[2017-06-12] MEDS ORDERED: GLUCAGON FOR INJ 1 MG VIAL SQ PRN (11:15)
[2017-06-12] MEDS ORDERED: GLUCOSE 40% GEL 15 GM TUBE PO PRN (11:15)
[2017-06-12] MEDS ORDERED: NURSING VERBAL MED ORDER ONE ×3 (12:15→23:00)
[2017-06-12] MEDS ORDERED: SODIUM CHLORIDE 0.9% 1000ML 1,000 ML IV SCH (12:45)
--- NOTE | 2017-06-12 12:49 | EMERGENCY ROOM VISIT NOTE ---
History First contact with patient: 08:23 Chief Complaint: RECTAL BLEEDING Stated Complaint: LOWER GI BLEED Nursing Triage Summary: Pt having intermittent bright red rectal bleeding that started at midnight last evening. Pt denies weakness, chest pain or any SOB thus far since the reported bleeding. History of Present Illness The patient is a 82 year old male who presents to the Emergency Room with complaints of rectal bleeding. The patient reports she has been having large bowel movements with a large amount of rectal bleeding every 2 hours. The patient is on Plavix. He is had episodes of rectal bleeding previously related to NSAID use which he no longer takes. He denies any abdominal pain and vomiting. The patient does have a history of Rm's esophagus. He did take his morning dose of Plavix this morning. Review of Systems See HPI for pertinent positives & negatives. A total of 10 systems reviewed and were otherwise negative. Past Medical/Surgical History Medical Problems: (1) Anemia (2) Angina (3) Benign hypertension (4) BPH w urinary obs/LUTS (5) BPH with elevated PSA (6) BPH with urinary obstruction (7) Cellulitis (8) Coronary artery bypass grafting (9) Diabetes mellitus (10) Gross hematuria (11) Hyperlipidemia (12) Left ventricular diastolic dysfunction (13) Lower GI bleed (14) Myocardial infarction (15) Obesity (16) Osteoarthritis (17) REFLUX ESOPHAGITIS (18) Urinary tract infection Family History Diabetes mellitus FH: prostate cancer FHx: colon cancer Hypertension Social History Smoking Status: Former Smoker Smokeless Tobacco Use: No Drug Use: none Marital Status: Housing Status: lives with family Occupation Status: retired Current/Historical Medications Scheduled Alfuzosin Hcl (Uroxatral), 10 MG PO QAM Aspirin (Aspirin Ec), 81 MG PO QAM Atenolol (Atenolol), 50 MG PO QAM Atorvastatin (Atorvastatin Calcium), 40 MG PO HS Clopidogrel (Plavix), 75 MG PO DAILY Dutasteride (Avodart), 0.5 MG PO QAM Esomeprazole Magnesium (Nexium), 40 MG PO QPM Glimepiride (Glimepiride), 2 MG PO BID Ikpmzwdltpd-Szqllzzuutf-Szu C- (Glucosamine 1500 Complex), 2 CAP PO DAILY Hydrochlorothiazide (Hydrochlorothiazide), 25 MG PO QAM Isosorbide Mononitrate Ext Rel (Imdur Ext Rel), 180 MG PO QPM Losartan Potassium (Cozaar), 100 MG PO QAM Metformin Hcl (Glucophage), 1,000 MG PO BID Metformin Hcl (Glucophage), 500 MG PO WITH LUNCH Multivitamin (Multivitamin), 1 TAB PO QAM Niacin (Niacin), 1,000 MG PO QPM Oxycodone HCl (Oxycodone HCl ER), 10 MG PO BID Potassium Chloride (Potassium Chloride Er), 10 MEQ PO QAM [place] (Seren[place] Repens) (Saw [place]), 450 MG PO QAM Scheduled PRN Nitroglycerin (Nitrostat), 0.4 MG UT UD PRN for Chest Pain Oxycodone Ir (Roxicodone Ir), 5 MG PO Q6H PRN for Pain [Oxybutynin], 2.5 MG PO TID PRN for PRN Physical Exam Vital Signs Date Time Temp Pulse Resp B/P (MAP) Pulse Ox O2 Delivery O2 Flow Rate FiO2 06/12/17 09:25 95 Room Air 06/12/17 08:38 95 Room Air 06/12/17 08:22 36.9 66 18 105/55 95 Room Air 06/12/17 08:21 65 Physical Exam GENERAL: Patient is a healthy-appearing well-nourished male HEAD: Normocephalic atraumatic EYES: Ocular movements intact pupils equal and react to light OROPHARYNX mucous membranes are moist no exudates present no erythema or edema present NECK: Supple no nuchal rigidity CHEST: Good equal expansion LUNGS: Clear and equal to auscultation CARDIAC: Normal S1 and S2 ABDOMEN: Soft nontender no guarding RECTAL: Gross dark red blood present. Hemmorhoid present, no other masses noted BACK: No CVA tenderness EXTREMITIES: No pain upon palpation normal muscle strength in all groups no clubbing cyanosis or edema NEURO: Patient is following commands is answering questions appropriately. Alert and oriented x3 Cranial Nerves 2-12 grossly intact Medical Decision & Procedures Laboratory Results 06/12/17 08:25 Red Blood Count 2.79, Mean Corpuscular Volume 95.3, Mean Corpuscular Hemoglobin 30.5, Mean Corpuscular Hemoglobin Concent 32.0, Mean Platelet Volume 9.6, Neutrophils (%) (Auto) 77.5, Lymphocytes (%) (Auto) 11.6, Monocytes (%) (Auto) 8.0, Eosinophils (%) (Auto) 2.1, Basophils (%) (Auto) 0.4, Neutrophils # (Auto) 4.34, Lymphocytes # (Auto) 0.65, Monocytes # (Auto) 0.45, Eosinophils # (Auto) 0.12, Basophils # (Auto) 0.02 06/12/17 08:25 Test 06/12/17 08:25 06/12/17 08:52 White Blood Count 5.60 K/uL (4.8-10.8) Red Blood Count 2.79 M/uL (4.7-6.1) Hemoglobin 8.5 g/dL (14.0-18.0) Hematocrit 26.6 % (42-52) Mean Corpuscular Volume 95.3 fL (80-100) Mean Corpuscular Hemoglobin 30.5 pg (25-34) Mean Corpuscular Hemoglobin Concent 32.0 g/dl (32-36) Platelet Count 208 K/uL (130-400) Mean Platelet Volume 9.6 fL (7.4-10.4) Neutrophils (%) (Auto) 77.5 % Lymphocytes (%) (Auto) 11.6 % Monocytes (%) (Auto) 8.0 % Eosinophils (%) (Auto) 2.1 % Basophils (%) (Auto) 0.4 % Neutrophils # (Auto) 4.34 K/uL (1.4-6.5) Lymphocytes # (Auto) 0.65 K/uL (1.2-3.4) Monocytes # (Auto) 0.45 K/uL (0.11-0.59) Eosinophils # (Auto) 0.12 K/uL (0-0.5) Basophils # (Auto) 0.02 K/uL (0-0.2) RDW Standard Deviation 52.6 fL (36.4-46.3) RDW Coefficient of Variation 15.0 % (11.5-14.5) Immature Granulocyte % (Auto) 0.4 % Immature Granulocyte # (Auto) 0.02 K/uL (0.00-0.02) Red Blood Cell Morphology Unremarkable Prothrombin Time 11.1 SECONDS (9.0-12.0) Prothromb Time International Ratio 1.1 (0.9-1.1) Activated Partial Thromboplast Time 23.1 SECONDS (21.0-31.0) Partial Thromboplastin Ratio 0.9 Est Creatinine Clear Calc Drug Dose 59.1 ml/min Estimated GFR () 61.3 Estimated GFR (Non- 52.9 BUN/Creatinine Ratio 30.2 (10-20) Calcium Level 8.3 mg/dl (8.5-10.1) Total Bilirubin 0.4 mg/dl (0.2-1) Direct Bilirubin 0.1 mg/dl (0-0.2) Aspartate Amino Transf (AST/SGOT) 18 U/L (15-37) Alanine Aminotransferase (ALT/SGPT) 21 U/L (12-78) Alkaline Phosphatase 68 U/L (45-117) Total Creatine Kinase 114 U/L (39-308) Creatine Kinase MB 1.6 ng/ml (0.5-3.6) Creatine Kinase MB Ratio 1.4 (0-3.0) Troponin I < 0.015 ng/ml (0-0.045) Total Protein 6.2 gm/dl (6.4-8.2) Albumin 2.8 gm/dl (3.4-5.0) Lipase 104 U/L (73-393) Bedside Hemoglobin 8.2 g/dl (14.0-18.0) Bedside Hematocrit 24 % (42-52) Bedside Sodium 139 mEq/L (135-144) Bedside Potassium 4.8 mEq/L (3.3-5.0) Bedside Chloride 100 mEq/L (101-112) Bedside Total CO2 28 mEq/l (24-31) Anion Gap 17.0 mmol/L (16-25) Bedside Blood Urea Nitrogen 42 mg/dl (7-18) Bedside Creatinine 1.1 mg/dl (0.6-1.3) Bedside Glucose (other) 191 mg/dl (70-99) Bedside Ionized Calcium (Sanchez) 1.12 mmol/l (1.12-1.32) Medications Administered Medications (Trade) Dose Ordered Sig/Jez Route Start Time Stop Time Status Last Admin Dose Admin Pantoprazole Sodium 80 mg/ Dextrose 120 ml @ 480 mls/hr TODAY@0930 IV 06/12/17 09:30 06/12/17 09:44 DC 06/12/17 09:54 480 MLS/HR Pantoprazole Sodium 40 mg/ Dextrose 100 ml @ 20 mls/hr Q5H IV 06/12/17 09:45 06/12/17 14:44 06/12/17 09:53 20 MLS/HR Medical Decision This is an 82-year-old male presents emergency department complaining of a large amount of rectal bleeding. The patient was typed and screened and a blood consent was placed on the chart. His hemoglobin was found to be 8.5. Based on this as well as the fact that the patient is on Plavix I recommended he be admitted to the hospitalist service. He was started on protonix bolus and drip. Patient was in agreement with the treatment plan. Medication Reconcilliation Current Medication List: was personally reviewed by me Blood Pressure Screening Patient's blood pressure: Low blood pressure Impression Primary Impression: Anemia Additional Impression: Lower GI bleed Departure Information Dispostion Still a Patient Condition FAIR Referrals Kori Parmar,D.ONalini (PCP) Forms WORK / SCHOOL INSTRUCTIONS, HOME CARE DOCUMENTATION FORM, IMPORTANT VISIT INFORMATION Patient Instructions [facility] Problem Qualifiers Primary Impression: Anemia Anemia type: unspecified type Qualified Codes: D64.9 - Anemia, unspecified
[2017-06-12 13:07] LABS: HEMATOCRIT 21.5 % (42-52); HEMOGLOBIN 7.1 g/dL (14.0-18.0)
[2017-06-12] MEDS: SODIUM CHLORIDE 0.9% 1000ML 1,000 ML IV SCH (13:11)
[2017-06-12] MEDS ORDERED: OPTIRAY 320 IV PRN (13:45)
[2017-06-12] MEDS ORDERED: NURSING DECISION MEDICATION ORDER SCH (14:45)
[2017-06-12] MEDS ORDERED: LIDOCAINE HCL 2% JELLY 30 ML TUBE EXT PRN (15:00)
--- NOTE | 2017-06-12 15:31 | Urology Consultation ---
History General Date of Service: Jun 12, 2017. Chief Complaint: gross hematuria Primary Care Physician: Kori Parmar D.O. Pt seen a urologist before?: Yes (Dr. Martinez) If yes, why?: BPH, prostate cancer, UTI History of Present Illness 82 yo male admitted to [facility] for GI bleed with anemia. consulted for gross hematuria. The pt was recently admitted and discharged 2 days ago by our service for Jodi Glabrata UTI. He received 5 days of amphotericin B bladder instillations , and repeat culture was noted to be negative while inpatient. He was noted to have some light hematuria with old clot prior to his discharge 2 days ago. He is pending a cysto with Dr. Martinez on 06-21. He reports developing gross hematuria with small clots last evening around 6pm. He then developed bloody stools around midnight, and has had bloody stools q2hrs since. He c/o some abdominal pain. H&H of 7.1 and 21.5. Currently receiving transfusion. The pt was also noted to be hypotensive upon admission. He reports he has not yet voided this afternoon, but urine this morning looked like Ajson-aid. Denies n/v. Laboratory Last 24 Hours Test 06/12/17 08:25 06/12/17 08:52 06/12/17 12:02 06/12/17 12:44 White Blood Count 5.60 K/uL Red Blood Count 2.79 M/uL Hemoglobin 8.5 g/dL 7.1 g/dL Hematocrit 26.6 % 21.5 % Mean Corpuscular Volume 95.3 fL Mean Corpuscular Hemoglobin 30.5 pg Mean Corpuscular Hemoglobin Concent 32.0 g/dl Platelet Count 208 K/uL Mean Platelet Volume 9.6 fL Neutrophils (%) (Auto) 77.5 % Lymphocytes (%) (Auto) 11.6 % Monocytes (%) (Auto) 8.0 % Eosinophils (%) (Auto) 2.1 % Basophils (%) (Auto) 0.4 % Neutrophils # (Auto) 4.34 K/uL Lymphocytes # (Auto) 0.65 K/uL Monocytes # (Auto) 0.45 K/uL Eosinophils # (Auto) 0.12 K/uL Basophils # (Auto) 0.02 K/uL RDW Standard Deviation 52.6 fL RDW Coefficient of Variation 15.0 % Immature Granulocyte % (Auto) 0.4 % Immature Granulocyte # (Auto) 0.02 K/uL Red Blood Cell Morphology Unremarkable Prothrombin Time 11.1 SECONDS Prothromb Time International Ratio 1.1 Activated Partial Thromboplast Time 23.1 SECONDS Partial Thromboplastin Ratio 0.9 Sodium Level 139 mmol/L Potassium Level 4.7 mmol/L Chloride Level 104 mmol/L Carbon Dioxide Level 27 mmol/L Anion Gap 8.0 mmol/L 17.0 mmol/L Blood Urea Nitrogen 38 mg/dl Creatinine 1.25 mg/dl Est Creatinine Clear Calc Drug Dose 59.1 ml/min Estimated GFR () 61.3 Estimated GFR (Non- 52.9 BUN/Creatinine Ratio 30.2 Random Glucose 183 mg/dl Calcium Level 8.3 mg/dl Total Bilirubin 0.4 mg/dl Direct Bilirubin 0.1 mg/dl Aspartate Amino Transf (AST/SGOT) 18 U/L Alanine Aminotransferase (ALT/SGPT) 21 U/L Alkaline Phosphatase 68 U/L Total Creatine Kinase 114 U/L Creatine Kinase MB 1.6 ng/ml Creatine Kinase MB Ratio 1.4 Troponin I < 0.015 ng/ml Total Protein 6.2 gm/dl Albumin 2.8 gm/dl Lipase 104 U/L Bedside Hemoglobin 8.2 g/dl Bedside Hematocrit 24 % Bedside Sodium 139 mEq/L Bedside Potassium 4.8 mEq/L Bedside Chloride 100 mEq/L Bedside Total CO2 28 mEq/l Bedside Blood Urea Nitrogen 42 mg/dl Bedside Creatinine 1.1 mg/dl Bedside Glucose (other) 191 mg/dl Bedside Ionized Calcium (Sanchez) 1.12 mmol/l Bedside Glucose 178 mg/dl Problem List Medical Problems: (1) Anemia Status: Chronic (2) Cellulitis of left lower leg Status: Acute (3) Funk catheter problem Status: Acute (4) Urinary retention Status: Acute (5) Urinary retention Status: Acute (6) Wound infection Status: Acute Past History angina, BPH, cancer - prostate, coronary artery disease, diabetes, high cholesterol, hypertension, kidney stones, myocardial infarction, other (anemia, chronic tension headaches, hydrocele, hypomagnesia, diastolic dysfunction-left ventricle, hip bursitis) Past Surgical History: angioplasty without stent, coronary bypass surgery, orthopedic surgery, THR, TKR Family History Diabetes mellitus FH: prostate cancer FHx: colon cancer Hypertension Social History Hx Tobacco Use In Past Year?: No Smoking: non-smoker, other Alcohol: never Drug use: none Marital status: Housing status: lives with family Occupation status: retired Immunizations History of Influenza Vaccine: No History of Tetanus Vaccine?: Unknown History of Pneumococcal: Yes Pneumococcal Date: Apr 26, 2004 History of Hepatitis B Vaccine: No History of MDRO No Allergies Coded Allergies: Adhesives (Verified Allergy, Unknown, DRAPES TORE PT'S SKIN OFF, 06/12/17) Bee Venom (Verified Allergy, Unknown, SWELLING, 06/12/17) Diclofenac (Verified Allergy, Unknown, 06/12/17) Naproxen (Verified Allergy, Unknown, 06/12/17) Amoxicillin (Verified Adverse Reaction, Unknown, CAUSES DIARRHEA, 06/12/17) Celecoxib (Verified Adverse Reaction, Unknown, gi bleed, 06/12/17) Medications Home Medications: Home Meds and Scripts Medications Dose Route/Sig Max Daily Dose Days Date Category Dose Instructions Roxicodone Ir (Oxycodone HCl) 5 Mg Tab 5 Mg PO Q6H PRN 03/18/17 Reported Plavix (Clopidogrel Bisulfate) 75 Mg Tab 75 Mg PO DAILY 11/27/16 Reported Aspirin Ec (Aspirin) 81 Mg Tab 81 Mg PO QAM 11/27/16 Reported [Oxybutynin] 2.5 Mg PO TID PRN 11/27/16 Reported Hydrochlorothiazide 25 Mg Tab 25 Mg PO QAM 11/20/16 Reported Imdur Ext Rel (Isosorbide Mononitrate) 120 Mg Ertab 180 Mg PO QPM 11/20/16 Reported Glimepiride 2 Mg Tab 2 Mg PO BID 11/20/16 Reported Atorvastatin Calcium (Atorvastatin) 40 Mg Tab 40 Mg PO HS 11/20/16 Reported Atenolol 50 Mg Tab 50 Mg PO QAM 11/20/16 Reported Potassium Chloride Er (Potassium Chloride) 10 Meq Tab 10 Meq PO QAM 11/20/16 Reported Cozaar (Losartan Potassium) 100 Mg Tab 100 Mg PO QAM 11/20/16 Reported Oxycodone HCl ER (Oxycodone HCl) 10 Mg Tab 10 Mg PO BID 11/20/16 Reported Glucophage (Metformin Hcl) 1,000 Mg Tab 500 Mg PO WITH LUNCH 11/09/16 Reported TAKE HALF A TABLET (500 MG) DAILY WITH LUNCH Saw [place] (Saw [place] (Serenoa Repens)) 450 Mg Cap 450 Mg PO QAM 11/09/16 Reported Glucosamine 1500 Complex ([place]huuw-Rdhomllyaen-Udp C-) 1 Cap Cap 2 Cap PO DAILY 11/09/16 Reported Uroxatral (Alfuzosin HCl) 10 Mg Tab 10 Mg PO QAM 05/04/16 Reported Nitrostat (Nitroglycerin) 0.4 Mg Sub 0.4 Mg UT UD PRN 11/24/12 Reported Niacin 500 Mg Tab 1,000 Mg PO QPM 11/24/12 Reported Avodart (Dutasteride) 0.5 Mg Cap 0.5 Mg PO QAM 11/24/12 Reported Glucophage (Metformin Hcl) 1,000 Mg Tab 1,000 Mg PO BID 11/24/12 Reported TAKE THIS MEDICATION WITH MORNING AND EVENING MEALS Multivitamin (Multivitamins) Tab 1 Tab PO QAM 11/22/07 Reported Nexium (Esomeprazole Magnesium) 40 Mg Capcr 40 Mg PO QPM 03/27/06 Reported Inpatient Medications: Current Inpatient Medications Medications (Trade) Dose Ordered Sig/Jez Route Start Time Stop Time Status Last Admin Dose Admin Sodium Chloride 1,000 ml @ 100 mls/hr Q10H IV 06/12/17 13:00 07/12/17 12:59 06/12/17 13:11 100 MLS/HR Acetaminophen (Tylenol Tab) 650 mg Q4H PRN PO 06/12/17 09:45 07/12/17 09:44 Ondansetron HCl (Zofran Inj) 4 mg Q6H PRN IV 06/12/17 09:45 07/12/17 09:44 Atorvastatin Calcium (Lipitor Tab) 40 mg HS PO 06/12/17 21:00 07/12/17 20:59 Oxycodone HCl (Oxycontin Tab) 10 mg BID PO 06/12/17 21:00 06/26/17 20:59 Oxycodone HCl (Roxicodone Immediate Rel Tab) 5 mg Q6H PRN PO 06/12/17 09:45 06/26/17 09:44 Miscellaneous Information (Order Awaiting Action) 1 ea QS N/A 06/12/17 16:00 07/12/17 15:59 Oxybutynin Chloride (Ditropan Tab) 2.5 mg TID PRN PO 06/12/17 09:45 07/12/17 09:44 Insulin Aspart (novoLOG ASPART) SLIDING SCALE If C... ACHS SC 06/12/17 16:30 07/12/17 16:29 Glucose (Glucose 40% Gel) 15-30 GRAMS 15 GRAMS... UD PRN PO 06/12/17 11:15 07/12/17 11:14 Glucose (Glucose Chew Tab) 4-8 Tablets 4 Tabl... UD PRN PO 06/12/17 11:15 07/12/17 11:14 Dextrose (Dextrose 50% 50ML Syringe) 25-50ML OF 50% DW IV FOR... UD PRN IV 06/12/17 11:15 07/12/17 11:14 Glucagon (Glucagon Inj) 1 mg UD PRN SQ 06/12/17 11:15 07/12/17 11:14 Pantoprazole Sodium 40 mg/ Syringe 10 ml @ 5 mls/min BID@0900,2100 IV 06/12/17 21:00 07/12/17 20:59 Ioversol (Optiray 320) 125 ml UD PRN IV 06/12/17 13:45 06/16/17 13:44 Lidocaine HCl (Xylocaine Jelly 2%) 5 ml ONE PRN EXT 06/12/17 15:00 07/12/17 14:59 Review of Systems Review of Systems Constitutional: No fever, No chills Eyes: No double vision Neurological: No dizzy Endocrine: No excessive thirst Gastrointestinal: + see HPI, + abdominal pain, No nausea, No vomiting Cardiovascular: No chest pain Respiratory: No shortness of breath Skin: No rash Musculoskeletal: + arthritis Male : + blood in urine Physical Exam Vital Signs: Vital Signs Past 12 Hours Date Time Temp Pulse Resp B/P (MAP) Pulse Ox O2 Delivery O2 Flow Rate FiO2 06/12/17 15:00 36.5 54 16 115/56 96 06/12/17 14:45 36.5 57 18 108/65 95 06/12/17 14:25 36.8 58 20 109/59 98 06/12/17 12:00 Room Air 06/12/17 11:40 36.3 62 18 80/49 (59) 96 Room Air 06/12/17 11:06 58 18 106/54 98 12/6/17 10:19 61 18 88/53 94 Room Air 06/12/17 10:11 58 06/12/17 09:55 58 18 82/44 98 Room Air 06/12/17 09:25 95 Room Air 06/12/17 08:38 95 Room Air 06/12/17 08:22 36.9 66 18 105/55 95 Room Air 06/12/17 08:21 65 Physical Exam: General Appearance: no apparent distress, + obese Eyes: bilateral eyes normal inspection ENT: hearing grossly normal Neck: no JVD Respiratory/Chest: no respiratory distress, no accessory muscle use Cardiovascular: no JVD Extremities: normal inspection Neurologic/Psychiatric: alert, normal mood/affect, oriented x 3 Skin: normal color Assessment & Plan Assessment & Plan A/P: Gross hematuria, rectal bleeding AFVSS. Recent Jodi Glabrata UTI. UC&S pending. Will check a urine cytology. Will check a CT of the abd/pelvis with and without IV contrast. Urine clear this afternoon. PVR of 63ml. Will observe for now. He is scheduled for a cysto with Dr. Martinez on 06-21. Possible colonoscopy tomorrow. Thanks for the consult. Will continue to follow along with primary service.
[2017-06-12] MEDS: INSULIN ASPART 100 UNITS/ML 3 ML PEN SC SCH ×2 (16:30→21:00)
[2017-06-12] MEDS ORDERED: LAVAGE SOLUTION 4000ML PO SCH (17:30)
[2017-06-12] MEDS ORDERED: LAVAGE SOLUTION 4000ML PO PRN (17:45)
[2017-06-12 18:22] LABS: HEMATOCRIT 24.8 % (42-52)
[2017-06-12] MEDS: OXYCODONE HCL 10 MG TABCR (OXYCONTIN) PO SCH (18:35)
[2017-06-12] MEDS ORDERED: PANTOprazole INJ 40 MG in SYRINGE 0 ML IV SCH (21:00)
[2017-06-12] MEDS ORDERED: OXYCODONE HCL 10 MG TABCR (OXYCONTIN) PO SCH (21:00)
[2017-06-12] MEDS: ATORVASTATIN 40 MG TAB PO SCH (21:21)
[2017-06-12] MEDS: OXYCODONE HCL IR 5 MG TAB (IMMEDIATE RELEASE) PO PRN (21:22)
[2017-06-12] MEDS: PANTOprazole INJ 40 MG in SYRINGE 0 ML IV SCH (21:22)
[2017-06-12] MEDS ORDERED: ISOSORBIDE MONONITRATE 60 MG TABCR PO ONE ×2 (23:00→23:15)
--- NOTE | 2017-06-12 23:32 | DIAGNOSTIC IMAGING REPORT ---
CT UROGRAM CLINICAL HISTORY: Gross hematuria COMPARISON STUDY: Abdominal CT dated 11/20/2016. TECHNIQUE: Before and following the IV administration of 119 cc of Optiray 320, CT urogram of the abdomen and pelvis is performed from the lung bases to the proximal femora. Images are reviewed in the axial, sagittal, and coronal planes. IV contrast was administered without complication. A dose lowering technique was utilized adhering to the principles of ALARA. CT DOSE: 2410.88 mGycm FINDINGS: Lung bases: The patient is status post midline sternotomy. The heart is mildly enlarged and without pericardial effusion. There is diminished attenuation of the cardiac blood pool as compared to the myocardium suggesting anemia. The coronary arteries are densely calcified. Emphysematous changes suspected. Scarring versus atelectasis is present at both lung bases. No airspace consolidation or pleural effusion is seen. There is a moderate hiatal hernia. Liver: The contrast-enhanced liver is normal in size, contour, and attenuation. There is no intrahepatic biliary ductal dilatation. The hepatic veins and portal veins are patent. A 2.2 cm cyst is noted in the left lobe. Gallbladder: Unremarkable. Spleen: Normal in size and attenuation. Pancreas: Moderately atrophic and grossly unremarkable. Adrenal glands: Unremarkable. Kidneys and ureters: The contrast enhanced kidneys are atrophic and without hydronephrosis. There are no renal calculi identified on the unenhanced images. The kidneys enhance and excrete symmetrically. A 2.7 cm cyst arises from the left upper pole. Additional subcentimeter cortical hypodensities also likely represent cysts but are too small for definitive characterization. There is no enhancing renal cortical mass lesion identified. There is no evidence of urothelial lesion within the renal pelvis bilaterally or along the course of either ureter. Abdominal vasculature: There is advanced atherosclerotic calcification mild ectasia of the abdominal aorta. Bowel: There is moderate colonic diverticulosis without CT evidence of acute diverticulitis. No bowel obstruction is identified. The appendix is well-visualized and normal. Peritoneum: There is no intraperitoneal free air or abdominal ascites. A fat-containing umbilical hernia is noted. There are least 3 fat-containing supraumbilical hernias. Lymphadenopathy: None. Pelvic viscera: Evaluation of the pelvis is degraded by streak artifact from a right hip arthroplasty. The prostate gland appears heterogeneous. There is median lobe hypertrophy. A central filling defect suggests previous TURP. The bladder wall is thickened and trabeculated consistent with chronic outlet obstruction. A diverticulum is seen arising on the left. Mild pericystic infiltration is noted. Skeletal structures: The skeletal structures are osteopenic. There is moderate to advanced lumbosacral spondylosis and scoliosis. No lytic or blastic bony lesions are seen. A right hip arthroplasty is in place. Advanced arthritic change is seen in the left hip. IMPRESSION: 1. The kidneys are atrophic and without hydronephrosis. No renal calculi are identified. 2. There is no enhancing renal cortical mass or evidence of urothelial lesion involving the renal pelvis bilaterally or along the course of the ureters. 3. The pelvis is not well evaluated due to streak artifact from a hip arthroplasty. 4. The prostate gland is enlarged and heterogeneous and there is evidence of chronic bladder obstruction including a bladder diverticulum. 5. The bladder wall is thickened and mild pericystic inflammation is suggested. Correlate clinically and with urinalysis for evidence of cystitis. If further evaluation of the bladder is desired including assessment for bladder mass then cystoscopy would be appropriate. 6. Cardiomegaly and suspect emphysema. 7. Moderate colonic diverticulosis without CT evidence of acute diverticulitis. 8. Moderate hiatal hernia. 9. Additional findings as above. Electronically signed by: Thiago Padilla M.D. 06/12/2017 11:31 PM Dictated Date/Time: 06/12/2017 11:22 PM
[2017-06-13] VITALS (19 sets, daily range): BP systolic 108–157; BP diastolic 58–89; PULSE 58–95; TEMP 36.2–36.8; O2SAT 93–99
[2017-06-13 00:23] LABS: HEMOGLOBIN 8.6 g/dL (14.0-18.0)
[2017-06-13] MEDS: SODIUM CHLORIDE 0.9% 1000ML 1,000 ML IV SCH ×4 (03:16→23:36)
[2017-06-13] MEDS: OXYCODONE HCL IR 5 MG TAB (IMMEDIATE RELEASE) PO PRN ×3 (03:17→22:43)
[2017-06-13 06:11] LABS: HEMOGLOBIN 6.7 g/dL (14.0-18.0); MEAN CELL VOLUME 92.6 fL (80-100); MEAN CORPUSCULAR HGB CONC 33.5 g/dl (32-36); MEAN PLATELET VOLUME 9.6 fL (7.4-10.4); PLATELET COUNT 159 K/uL (130-400); RED CELL DISTRIBUTION WIDTH CV 15.7 % (11.5-14.5); RED CELL DISTRIBUTION WIDTH SD 53.6 fL (36.4-46.3)
[2017-06-13 06:28] LABS: BASO % 0.7 %; BASO ABS # 0.03 K/uL (0-0.2); EOS % 2.6 %; EOS ABS # 0.11 K/uL (0-0.5); IG# 0.01 K/uL (0.00-0.02); LYMPH % 15.3 %; LYMPH ABS # 0.66 K/uL (1.2-3.4); MONO % 12.3 %; MONO ABS # 0.53 K/uL (0.11-0.59); NEUT % 68.9 %; NEUT ABS # 2.96 K/uL (1.4-6.5)
[2017-06-13 06:45] LABS: CALCIUM 7.5 mg/dl (8.5-10.1); CREATININE 0.96 mg/dl (0.60-1.40); POTASSIUM 3.7 mmol/L (3.5-5.1)
--- NOTE | 2017-06-13 06:50 | GASTROINTESTINAL CONSULTATION ---
DATE OF CONSULTATION: 06/12/2017 CHIEF COMPLAINT: Rectal bleeding. HISTORY OF PRESENT ILLNESS: Mr. Hallman is an 82-year-old white male with a recent diagnosis of prostate cancer, receiving radiation therapy, finishing a few weeks ago along with recent hospitalization for an installation of amphotericin B in the bladder for Jodi glabrata. The patient was discharged 2-3 days prior to admission when he developed overnight bright red blood per rectum that was voluminous in nature and he presented to the Emergency Room with an approximately 12-15 hours. The patient had reported frequent bright red blood per rectum in the toilet bowl without abdominal pain, nausea, vomiting, preceding diarrhea. This was painless bleeding described. There was a sense of dizziness, although he did not have a syncopal event. The patient has had recurrent rectal bleeding in the past and had a colonoscopy by Dr. Garza within the last 1-2 years for which he did not recall any abnormal findings. He also reported an upper endoscopy being performed which revealed Rm's esophagus. The patient denied any hematemesis, coffee-ground emesis, nausea, vomiting. PAST MEDICAL HISTORY: Significant for anemia, angina, hypertension, cellulitis, coronary artery disease with bypass grafting for which he takes Plavix and aspirin, but is on no chronic blood thinners. He has diabetes, hyperlipidemia, NE, obesity, reflux esophagitis, recent diagnosis of prostate cancer. PAST SURGICAL HISTORY: He had CABG, foot surgery, left hip replacement, knee replacement and angioplasty. FAMILY HISTORY: Significant for mother with colon cancer, arthritis and hypertension. There is also hypertension and prostate cancer in his brother. SOCIAL HISTORY: The patient smoked in the past but currently does not use tobacco products only rarely uses alcoholic beverages. He is and lives with his family and is retired. ALLERGIES: HE IS ALLERGIC TO CELEBREX, AMOXICILLIN, NAPROXEN, DICLOFENAC, BEE VENOM AND ADHESIVES. HOME MEDICATIONS: Include Uroxatral, aspirin, atenolol, atorvastatin, Plavix, Avodart, Nexium, glimepiride , glucosamine, HCTZ, Imdur, losartan, metformin, niacin, potassium and saw palmetto. His current medications include Ditropan, oxycodone p.r.n., Tylenol p.r.n., insulin, pantoprazole. REVIEW OF SYSTEMS: Otherwise noncontributory based on 13-point exam except for mentioned above. PHYSICAL EXAMINATION: VITAL SIGNS: At the present time shows vital signs afebrile at 36.4, blood pressure 118/69, pulse ox 97% on room air, respirations 20, heart rate 60. GENERAL: The patient is awake, alert and oriented x3, accompanied by his spouse. He is resting comfortably in bed, although has a pale appearance. The patient is awake, alert and oriented x3. HEENT: Sclerae are anicteric, conjunctiva moist. Oral mucosa moist. Normocephalic, atraumatic. Normal extremity range of motion. There is no focal neurologic defects. There is no cervical or supraclavicular adenopathy. I do not appreciate thyromegaly. HEART: Normal S1, S2. LUNGS: Clear to auscultation without rales, rhonchi or wheeze. ABDOMEN: Soft, flat, nontender, nondistended with positive bowel sounds. There is no rebound or guarding. I do not appreciate hepatosplenomegaly. EXTREMITIES: Without clubbing, cyanosis or edema. RECTAL: Deferred at this time. LABORATORY STUDIES: On admission show hemoglobin of 8.5 that fell this afternoon to 7.1 and is currently 8.0. The patient is ordered 1 unit of packed red blood cells which is running and nearly completed. Platelet count is 208,000. Serum chemistries today; BUN and creatinine are 42 and 1.1. This is up slightly from yesterday where he was 38 and 1.25. Potassium normal at 4.8. Blood glucose average 190. Liver tests on admission, ALT, AST, alkaline phosphatase, total and direct bilirubin are all within the normal limits. Troponin levels negative. Lipase 104. Urinalysis showed trace leukocyte esterase, 2+ occult blood. INR 1.1. IMPRESSION AND PLAN: The patient with acute onset of bright red blood per rectum that was voluminous in nature. This was painless rectal bleeding unaccompanied by other gastrointestinal symptoms. The source of the bleeding is varied and may reflect ischemic colitis, although there was no preceding pain or diarrhea, diverticular bleeding, radiation induced changes. The BUN is elevated and this could also reflect an upper gastrointestinal bleeding source and therefore PPI therapy is prudent. I made the following recommendations, we will plan for bidirectional endoscopy tomorrow after a bowel prep tonight and these have been ordered. We would continue PPI therapy, transfuse as needed to maintain hemoglobin per protocol. Further recommendations to follow. Thank you for allowing me to participate in this patient's care.
--- NOTE | 2017-06-13 07:58 | Progress Note ---
Subjective Date of Service: Jun 13, 2017. Subjective Pt evaluation today including: conversation w/ patient, chart review, lab review Voiding: no voiding problems Pt continues to have rectal bleeding. Feels weak. H&H of 6.7 and 20.0 this morning. He reports an episode of angina overnight. He is pending colonoscopy later today. Denies any gross hematuria or dysuria this morning. Urine is clear, yellow in urinal at bedside. Cytology pending. No UC&S performed. CT negative for stones, renal mass, or hydro. ? cystitis/inflammed bladder visualized. Problem List Medical Problems: (1) Anemia Status: Chronic (2) Cellulitis of left lower leg Status: Acute (3) Funk catheter problem Status: Acute (4) Urinary retention Status: Acute (5) Urinary retention Status: Acute (6) Wound infection Status: Acute Review of Systems Constitutional: + weakness, No fever, No chills Respiratory: No shortness of breath Cardiac: No chest pain Abdomen: No pain, No nausea, No vomiting Male : No dysuria, No hematuria Heme: No abnormal bleeding/bruising Objective Vital Signs Date Time Temp Pulse Resp B/P (MAP) Pulse Ox O2 Delivery O2 Flow Rate FiO2 06/13/17 07:40 36.4 75 20 149/83 (105) 99 Room Air 06/13/17 04:00 94 Room Air 06/13/17 03:20 36.5 67 20 120/70 (87) 95 Room Air 06/13/17 01:54 36.4 58 18 108/71 (83) 96 Room Air 06/13/17 00:00 94 Room Air 06/12/17 23:40 70 143/83 (103) 06/12/17 22:50 36.4 63 20 151/75 (100) 96 Room Air 06/12/17 22:08 151/100 (117) 99 Room Air 06/12/17 20:00 94 Room Air 06/12/17 19:47 36.6 68 22 169/74 (105) 94 Room Air 06/12/17 16:34 36.4 60 20 118/69 97 06/12/17 16:00 Room Air 06/12/17 15:56 36.7 54 22 93/57 (69) 97 Room Air 06/12/17 15:30 36.4 56 16 109/70 98 06/12/17 15:00 36.5 54 16 115/56 96 06/12/17 14:45 36.5 57 18 108/65 95 06/12/17 14:25 36.8 58 20 109/59 98 06/12/17 12:00 Room Air 06/12/17 11:40 36.3 62 18 80/49 (59) 96 Room Air 06/12/17 11:06 58 18 106/54 98 06/12/17 10:19 61 18 88/53 94 Room Air 06/12/17 10:11 58 06/12/17 09:55 58 18 82/44 98 Room Air 06/12/17 09:25 95 Room Air 06/12/17 08:38 95 Room Air 06/12/17 08:22 36.9 66 18 105/55 95 Room Air 06/12/17 08:21 65 Physical Exam General Appearance: no apparent distress, + obese Eyes: normal inspection ENT: hearing grossly normal Neck: no JVD Respiratory/Chest: no respiratory distress, no accessory muscle use Cardiovascular: no JVD Extremities: + swelling Neurologic/Psychiatric: alert, normal mood/affect, oriented x 3 Skin: normal color Laboratory Results Last 24 Hours Test 06/12/17 08:25 06/12/17 08:52 06/12/17 12:02 06/12/17 12:44 White Blood Count 5.60 K/uL Red Blood Count 2.79 M/uL Hemoglobin 8.5 g/dL 7.1 g/dL Hematocrit 26.6 % 21.5 % Mean Corpuscular Volume 95.3 fL Mean Corpuscular Hemoglobin 30.5 pg Mean Corpuscular Hemoglobin Concent 32.0 g/dl Platelet Count 208 K/uL Mean Platelet Volume 9.6 fL Neutrophils (%) (Auto) 77.5 % Lymphocytes (%) (Auto) 11.6 % Monocytes (%) (Auto) 8.0 % Eosinophils (%) (Auto) 2.1 % Basophils (%) (Auto) 0.4 % Neutrophils # (Auto) 4.34 K/uL Lymphocytes # (Auto) 0.65 K/uL Monocytes # (Auto) 0.45 K/uL Eosinophils # (Auto) 0.12 K/uL Basophils # (Auto) 0.02 K/uL RDW Standard Deviation 52.6 fL RDW Coefficient of Variation 15.0 % Immature Granulocyte % (Auto) 0.4 % Immature Granulocyte # (Auto) 0.02 K/uL Red Blood Cell Morphology Unremarkable Prothrombin Time 11.1 SECONDS Prothromb Time International Ratio 1.1 Activated Partial Thromboplast Time 23.1 SECONDS Partial Thromboplastin Ratio 0.9 Sodium Level 139 mmol/L Potassium Level 4.7 mmol/L Chloride Level 104 mmol/L Carbon Dioxide Level 27 mmol/L Anion Gap 8.0 mmol/L 17.0 mmol/L Blood Urea Nitrogen 38 mg/dl Creatinine 1.25 mg/dl Est Creatinine Clear Calc Drug Dose 59.1 ml/min Estimated GFR () 61.3 Estimated GFR (Non- 52.9 BUN/Creatinine Ratio 30.2 Random Glucose 183 mg/dl Calcium Level 8.3 mg/dl Total Bilirubin 0.4 mg/dl Direct Bilirubin 0.1 mg/dl Aspartate Amino Transf (AST/SGOT) 18 U/L Alanine Aminotransferase (ALT/SGPT) 21 U/L Alkaline Phosphatase 68 U/L Total Creatine Kinase 114 U/L Creatine Kinase MB 1.6 ng/ml Creatine Kinase MB Ratio 1.4 Troponin I < 0.015 ng/ml Total Protein 6.2 gm/dl Albumin 2.8 gm/dl Lipase 104 U/L Bedside Hemoglobin 8.2 g/dl Bedside Hematocrit 24 % Bedside Sodium 139 mEq/L Bedside Potassium 4.8 mEq/L Bedside Chloride 100 mEq/L Bedside Total CO2 28 mEq/l Bedside Blood Urea Nitrogen 42 mg/dl Bedside Creatinine 1.1 mg/dl Bedside Glucose (other) 191 mg/dl Bedside Ionized Calcium (Sanchez) 1.12 mmol/l Bedside Glucose 178 mg/dl Test 06/12/17 16:23 06/12/17 18:08 06/12/17 20:30 06/12/17 20:48 Bedside Glucose 135 mg/dl 122 mg/dl Hemoglobin 8.0 g/dL Hematocrit 24.8 % Urine Color YELLOW Urine Appearance CLEAR Urine pH 5.0 Urine Specific [place] 1.018 Urine Protein 1+ Urine Glucose (UA) NEG Urine Ketones NEG Urine Occult Blood 2+ Urine Nitrite NEG Urine Bilirubin NEG Urine Urobilinogen NEG Urine Leukocyte Esterase TRACE Urine WBC (Auto) 5-10 /hpf Urine RBC (Auto) 10-30 /hpf Urine Hyaline Casts (Auto) 1-5 /lpf Urine Epithelial Cells (Auto) >30 /lpf Urine Bacteria (Auto) NEG Test 06/13/17 00:06 06/13/17 05:17 Hemoglobin 8.6 g/dL 6.7 g/dL Hematocrit 26.0 % 20.0 % White Blood Count 4.30 K/uL Red Blood Count 2.16 M/uL Mean Corpuscular Volume 92.6 fL Mean Corpuscular Hemoglobin 31.0 pg Mean Corpuscular Hemoglobin Concent 33.5 g/dl Platelet Count 159 K/uL Mean Platelet Volume 9.6 fL Neutrophils (%) (Auto) 68.9 % Lymphocytes (%) (Auto) 15.3 % Monocytes (%) (Auto) 12.3 % Eosinophils (%) (Auto) 2.6 % Basophils (%) (Auto) 0.7 % Neutrophils # (Auto) 2.96 K/uL Lymphocytes # (Auto) 0.66 K/uL Monocytes # (Auto) 0.53 K/uL Eosinophils # (Auto) 0.11 K/uL Basophils # (Auto) 0.03 K/uL RDW Standard Deviation 53.6 fL RDW Coefficient of Variation 15.7 % Immature Granulocyte % (Auto) 0.2 % Immature Granulocyte # (Auto) 0.01 K/uL Red Blood Cell Morphology Unremarkable Sodium Level 138 mmol/L Potassium Level 3.7 mmol/L Chloride Level 106 mmol/L Carbon Dioxide Level 26 mmol/L Anion Gap 6.0 mmol/L Blood Urea Nitrogen 29 mg/dl Creatinine 0.96 mg/dl Est Creatinine Clear Calc Drug Dose 76.9 ml/min Estimated GFR () 84.4 Estimated GFR (Non- 72.8 BUN/Creatinine Ratio 29.9 Random Glucose 123 mg/dl Calcium Level 7.5 mg/dl Assessment and Plan A/P: Gross hematuria, rectal bleeding AFVSS. Gross hematuria resolved. Will order a UC&S. Cytology pending. No abnormal findings on CT to account for gross hematuria. Will complete evaluation for hematuria with an outpatient cysto next week with Dr. Martinez as scheduled. Pt's most critical issue is his GI bleeding. Dr. Andrade notified of H&H this morning. Management per primary service and GI. Will continue to follow along with primary service.
[2017-06-13] MEDS: INSULIN ASPART 100 UNITS/ML 3 ML PEN SC SCH ×4 (08:23→21:00)
[2017-06-13] MEDS: PANTOprazole INJ 40 MG in SYRINGE 0 ML IV SCH ×2 (08:26→20:31)
--- NOTE | 2017-06-13 08:26 | Clinical Documentation Query ---
CLINICAL DOCUMENTATION QUERY Dr. BEY, In your clinical opinion is this patient being managed for: ( ) Acute blood loss anemia ( ) Not Agree ( ) Other explanation of clinical findings (Please Explain) ( ) Unable to determine (Please Define) ( ) Need to Discuss The medical record reflects the following clinical findings, treatment, and risk factors. Clinical Indicators: 82 yo male presenting with GI bleed. Initial Hgb 8.5, Hct 26.6 which has dropped to Hgb 6.7, Hct 20 despite transfusion. Treatment: GI consult with endoscopies pending, IV fluids with 1L NSS bolus, IV protonix, hold plavix and ASA, 1U PRBC, q 6 hr H/H Risk Factors: GI bleed Please clarify and document your clinical opinion in the progress notes and discharge summary. Terms such as "probable", "suspected", "likely", "questionable", "possible", or "still to be ruled out" are acceptable. IF IN AGREEMENT, YOU MUST DOCUMENT ABOVE DIAGNOSTIC STATEMENT IN DAILY PROGRESS NOTES AND DISCHARGE SUMMARY. This document is not part of the patient's record. Thank You, Sarah Devine, JIM [phone]
[2017-06-13] MEDS: OXYCODONE HCL 10 MG TABCR (OXYCONTIN) PO SCH ×2 (08:27→20:30)
--- NOTE | 2017-06-13 08:56 | Hospitalist Progress Note ---
Hospitalist Progress Note Date of Service Jun 13, 2017. (Danelle Powell PA-C) Subjective Pt evaluation today including: conversation w/ patient, physical exam, chart review, lab review, review of studies Pain: none PO Intake: NPO Voiding: no voiding problems The patient was seen and examined this morning. Pt reports feeling "awful" . He reports having BM about every 30 minutes over night. Pt finished bowel prep overnight for colonoscopy and endoscopy. He denies abd pain, n/v. He denies cramping or spasm as well. His hgb has dropped again this morning to 6.7 and he feels dizzy at times. Pt denies any chest pain or shortness of breath. Pt notes hematuria has resolved since yesterday, no issues with urination. ROS: 6 point ROS reviewed and otherwise negative. (Danelle Powell PA-C) Objective Vital Signs Date Time Temp Pulse Resp B/P (MAP) Pulse Ox O2 Delivery O2 Flow Rate FiO2 06/13/17 07:40 36.4 75 20 149/83 (105) 99 Room Air 06/13/17 04:00 94 Room Air 06/13/17 03:20 36.5 67 20 120/70 (87) 95 Room Air 06/13/17 01:54 36.4 58 18 108/71 (83) 96 Room Air 06/13/17 00:00 94 Room Air 06/12/17 23:40 70 143/83 (103) 06/12/17 22:50 36.4 63 20 151/75 (100) 96 Room Air 06/12/17 22:08 151/100 (117) 99 Room Air 06/12/17 20:00 94 Room Air 06/12/17 19:47 36.6 68 22 169/74 (105) 94 Room Air 06/12/17 16:34 36.4 60 20 118/69 97 06/12/17 16:00 Room Air 06/12/17 15:56 36.7 54 22 93/57 (69) 97 Room Air 06/12/17 15:30 36.4 56 16 109/70 98 06/12/17 15:00 36.5 54 16 115/56 96 06/12/17 14:45 36.5 57 18 108/65 95 06/12/17 14:25 36.8 58 20 109/59 98 06/12/17 12:00 Room Air 06/12/17 11:40 36.3 62 18 80/49 (59) 96 Room Air 06/12/17 11:06 58 18 106/54 98 06/12/17 10:19 61 18 88/53 94 Room Air 06/12/17 10:11 58 06/12/17 09:55 58 18 82/44 98 Room Air 06/12/17 09:25 95 Room Air (Danelle Powell PA-C) Physical Exam Notes: General Appearance: WD/WN, + mild distress, + obese, + pertinent finding (pale) Head: normocephalic, atraumatic Eyes: PERRL, EOMI ENT: hearing grossly normal, pharynx normal, + pertinent finding (MMM) Neck: supple, no JVD Respiratory/Chest: lungs clear, no respiratory distress, no accessory muscle use Cardiovascular: regular rate, rhythm, no murmur, normal peripheral pulses Abdomen/GI: normal bowel sounds, +tender to palpation in the R mid abdominal region, no Murpheys sign or rebound tenderness, Back: normal inspection, no muscle spasm Extremities/Musculoskeletal: no calf tenderness, + pedal edema (2+ nonpitting edema BLE, worse in LLE ) Neurologic/Psych: alert, normal mood/affect, oriented x 3 Skin: warm/dry, + pallor (Danelle Powell, LORRIE-C) Laboratory Results Last 24 Hours Test 06/12/17 12:02 06/12/17 12:44 06/12/17 16:23 06/12/17 18:08 Bedside Glucose 178 mg/dl 135 mg/dl Hemoglobin 7.1 g/dL 8.0 g/dL Hematocrit 21.5 % 24.8 % Test 06/12/17 20:30 06/12/17 20:48 06/13/17 00:06 06/13/17 05:17 Urine Color YELLOW Urine Appearance CLEAR Urine pH 5.0 Urine Specific [place] 1.018 Urine Protein 1+ Urine Glucose (UA) NEG Urine Ketones NEG Urine Occult Blood 2+ Urine Nitrite NEG Urine Bilirubin NEG Urine Urobilinogen NEG Urine Leukocyte Esterase TRACE Urine WBC (Auto) 5-10 /hpf Urine RBC (Auto) 10-30 /hpf Urine Hyaline Casts (Auto) 1-5 /lpf Urine Epithelial Cells (Auto) >30 /lpf Urine Bacteria (Auto) NEG Bedside Glucose 122 mg/dl Hemoglobin 8.6 g/dL 6.7 g/dL Hematocrit 26.0 % 20.0 % White Blood Count 4.30 K/uL Red Blood Count 2.16 M/uL Mean Corpuscular Volume 92.6 fL Mean Corpuscular Hemoglobin 31.0 pg Mean Corpuscular Hemoglobin Concent 33.5 g/dl Platelet Count 159 K/uL Mean Platelet Volume 9.6 fL Neutrophils (%) (Auto) 68.9 % Lymphocytes (%) (Auto) 15.3 % Monocytes (%) (Auto) 12.3 % Eosinophils (%) (Auto) 2.6 % Basophils (%) (Auto) 0.7 % Neutrophils # (Auto) 2.96 K/uL Lymphocytes # (Auto) 0.66 K/uL Monocytes # (Auto) 0.53 K/uL Eosinophils # (Auto) 0.11 K/uL Basophils # (Auto) 0.03 K/uL RDW Standard Deviation 53.6 fL RDW Coefficient of Variation 15.7 % Immature Granulocyte % (Auto) 0.2 % Immature Granulocyte # (Auto) 0.01 K/uL Red Blood Cell Morphology Unremarkable Sodium Level 138 mmol/L Potassium Level 3.7 mmol/L Chloride Level 106 mmol/L Carbon Dioxide Level 26 mmol/L Anion Gap 6.0 mmol/L Blood Urea Nitrogen 29 mg/dl Creatinine 0.96 mg/dl Est Creatinine Clear Calc Drug Dose 76.9 ml/min Estimated GFR () 84.4 Estimated GFR (Non- 72.8 BUN/Creatinine Ratio 29.9 Random Glucose 123 mg/dl Calcium Level 7.5 mg/dl (Danelle Powell, TRISTIN) Assessment and Plan Mr. Hallman is an 82 yo M was recently discharged from urology service on 06/10 after five days of amphotericin B bladder instillation for Jodi Glabrata UTI. He has a past medical history of CAD s/p SC and CABG, GERD, HTN, HLD, adenocarcinoma s/p TURP and radiation, BPH, DMII, lymphedema bilateral lower extremities now presenting with a GI bleed which appears to be lower GI with BRBPR. Pt is slightly hypotensive and receiving fluid resuscitation. GI Bleed Acute blood loss anemia - Had more BRBPR overnight: BM every 30 minutes since bowel prep per nursing. - Consulted GI- Dr. Harley planning on colonoscopy and endoscopy today- bowel prep overnight may be exacerbating the bleed if in the setting of colitis? - H&H dropped to 6.7 this morning - will order another 1 U PRBCs. Keep 1 U on hold. S/p total of 2 U. - Hold plavix and asa - protonix IV BID - Continue IVFs at 100mL/hr - BP remains stable at this time despite acute bleed - Hold all antihypertensives at this time - SHANE completed by attending in ER, [place] blood in toilet after bowel movement Hematuria - Resolved at this time - Pt recently treated for fungal uti - Consult urology since he was recently discharged from their service and now with clot- possible that this is residual from bladder kyle irrigation, or residual cystitis since being on plavix. - Appreciate recommendations. - Plan for formal cystoscopy in [address] Martinez Fungal UTI - completed 5 days of amphotericin B bladder instillations on 06/10 - Urology consult as above Hx Prostate Cancer - s/p TURP and XRT. Recently stopped Casodex. 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 - Continue Oxy IR as scheduled. Pt can not afford oxycontin ER as an outpatient so would not recommend that here in hospital. DVT ppx: no chemical anticoagulation at this time due to GI bleed CODE STATUS: FULL CODE Disposition: From home, lives with , will likely be here ~2 more days pending scope reports. (Danelle Powell PA-C) After examining patient, I agree with above note. I also discussed case with APC and patient. I also answered all of the patient's questions. My exam is below: General Appearance: mild distress, pale, Neck: supple, no JVD, trachea midline Respiratory/Chest: lungs clear, normal breath sounds Cardiovascular: regular rate, rhythm, no gallop, no murmur Abdomen: normal bowel sounds, RUQ tenderness, soft, no rebound Extremities: edema x2, no calf tenderness Neurologic/Psychiatric: alert, oriented x 3 Skin: pale, warm/dry (Ney Andrade M.D.)
[2017-06-13 13:56] LABS: HEMATOCRIT 21.2 % (42-52)
--- NOTE | 2017-06-13 14:55 | History & Physical Bridge Note ---
H&P Re-Evaluation Bridge Note: I have examined the patient, reviewed the History & Physical and in the interval since the performance of the History & Physical I have noted the following changes of clinical significance EGD and colon consents obtained: No changes noted
--- NOTE | 2017-06-13 16:54 | GI REPORT ---
Procedure Date: 06/13/2017 3:49 PM Procedure: Colonoscopy Indications: Hematochezia Medicines: Propofol per Anesthesia Complications: No immediate complications. Estimated blood loss: None. Estimated Blood Loss: Estimated blood loss: none. Procedure: Pre-Anesthesia Assessment: - Prior to the procedure, a History and Physical was performed, and patient medications and allergies were reviewed. The patient's tolerance of previous anesthesia was also reviewed. The risks and benefits of the procedure and the sedation options and risks were discussed with the patient. All questions were answered, and informed consent was obtained. Prior Anticoagulants: The patient has taken no previous anticoagulant or antiplatelet agents. ASA Grade Assessment: IV - A patient with severe systemic disease that is a constant threat to life. After reviewing the risks and benefits, the patient was deemed in satisfactory condition to undergo the procedure. After I obtained informed consent, the scope was passed under direct vision. Throughout the procedure, the patient's blood pressure, pulse, and oxygen saturations were monitored continuously. The scope was introduced through the anus and advanced to the terminal ileum, with identification of the appendiceal orifice and IC valve. The colonoscopy was unusually difficult due to inadequate bowel prep. Successful completion of the procedure was aided by lavage. Findings: The perianal and digital rectal examinations were normal. Pertinent negatives include normal sphincter tone, no palpable rectal lesions and no anal lesion or abnormality was detected. Multiple small-mouthed diverticula were found in the sigmoid colon. Red blood was found from anus to transverse colon. The area from transverse colon to ileum appeared normal. Red blood was found from anus to transverse colon. Lavage of the area was performed using a large amount of sterile water, resulting in clearance with fair visualization. Impression: - Diverticulosis in the sigmoid colon. - Blood from anus to transverse colon. - The transverse colon to ileum is normal. - Blood from anus to transverse colon. - No specimens collected. Recommendation: - Return patient to [facility] for ongoing care. - Blood in lower 1/2 of colon. TI without blood. Multiple diverticula is possible source. No apparent ulcers or colitis. If bleeding continues, tagged red cell scan and either transfer to center with [facility] or surgical consult here. Follow H/H MD Evan Jung MD 06/13/2017 4:54:17 PM This report has been signed electronically. Note Initiated On: 06/13/2017 3:49 PM I attest to the content of the Intraoperative Record and orders documented therein, exceptions below
--- NOTE | 2017-06-13 16:59 | GI REPORT ---
Procedure Date: 06/13/2017 3:27 PM Procedure: Upper GI endoscopy Indications: Hematochezia Medicines: Propofol per Anesthesia Complications: No immediate complications. Estimated blood loss: None. Estimated Blood Loss: Estimated blood loss: none. Procedure: Pre-Anesthesia Assessment: - Prior to the procedure, a History and Physical was performed, and patient medications and allergies were reviewed. The patient's tolerance of previous anesthesia was also reviewed. The risks and benefits of the procedure and the sedation options and risks were discussed with the patient. All questions were answered, and informed consent was obtained. Prior Anticoagulants: The patient has taken no previous anticoagulant or antiplatelet agents. ASA Grade Assessment: IV - A patient with severe systemic disease that is a constant threat to life. After reviewing the risks and benefits, the patient was deemed in satisfactory condition to undergo the procedure. After obtaining informed consent, the endoscope was passed under direct vision. Throughout the procedure, the patient's blood pressure, pulse, and oxygen saturations were monitored continuously. The scope was introduced through the mouth, and advanced to the mid-jejunum. The upper GI endoscopy was accomplished without difficulty. The patient tolerated the procedure well. Findings: The examined esophagus was normal. Multiple 5 to 15 mm sessile polyps with no bleeding and no stigmata of recent bleeding were found in the gastric fundus and in the gastric body. One 10 mm sessile polyp with bleeding and stigmata of recent bleeding was found in the gastric fundus. For hemostasis, two hemostatic clips were successfully placed (MR conditional). There was no bleeding at the end of the procedure. The exam of the stomach was otherwise normal. The examined duodenum was normal. The examined jejunum was normal. The cardia and gastric fundus were normal on retroflexion. Impression: - Normal esophagus. - Multiple gastric polyps. - One gastric polyp. Clips (MR conditional) were placed. - Normal examined duodenum. - Normal examined jejunum. - No specimens collected. Recommendation: - Return patient to [facility] for ongoing care. - Perform a colonoscopy today. MD Evan Jung MD 06/13/2017 4:58:41 PM This report has been signed electronically. Note Initiated On: 06/13/2017 3:27 PM I attest to the content of the Intraoperative Record and orders documented therein, exceptions below
[2017-06-13] MEDS ORDERED: ETOMIDATE 2 MG/ML 20 ML VIAL IV ONE (17:02)
[2017-06-13] MEDS ORDERED: LABETALOL HCL IV 5 MG/ML 20ML IV ONE (17:02)
[2017-06-13] MEDS ORDERED: PROPOFOL IV EMULSION 10 MG/ML 20 ML VIAL IV ONE (17:02)
[2017-06-13] MEDS ORDERED: LIDOCAINE HCL 2% 2 ML VIAL (20MG/ML) ONE (17:02)
[2017-06-13 17:21] LABS: HEMATOCRIT 21.5 % (42-52); HEMOGLOBIN 7.4 g/dL (14.0-18.0); MEAN CELL VOLUME 91.5 fL (80-100); MEAN CORPUSCULAR HEMOGLOBIN 31.5 pg (25-34); MEAN PLATELET VOLUME 9.3 fL (7.4-10.4); PLATELET COUNT 164 K/uL (130-400); RED CELL DISTRIBUTION WIDTH CV 15.9 % (11.5-14.5); RED CELL DISTRIBUTION WIDTH SD 52.8 fL (36.4-46.3); WHITE BLOOD COUNT 5.18 K/uL (4.8-10.8)
[2017-06-13 17:29] LABS: MEAN CORPUSCULAR HGB CONC 34.4 g/dl (32-36)
--- NOTE | 2017-06-13 17:41 | Anesthesiology Progress Note ---
Anesthesia Post Op Note Date & Time Jun 13, 2017 at 17:29 Vital Signs Pain Intensity: 5 Vital Signs Past 12 Hours Date Time Temp Pulse Resp B/P (MAP) Pulse Ox O2 Delivery O2 Flow Rate FiO2 06/13/17 16:55 88 16 152/87 (108) 98 Mask 15 06/13/17 16:45 130 16 176/89 (118) 98 Mask 15 06/13/17 16:41 123 16 165/92 (116) 98 Mask 15 06/13/17 16:30 Room Air 06/13/17 15:01 37.4 85 16 135/68 (90) 91 Room Air 06/13/17 12:30 36.6 76 18 118/58 96 06/13/17 12:15 Room Air 06/13/17 11:30 36.6 70 18 120/69 97 06/13/17 11:00 36.6 77 20 150/63 95 06/13/17 10:30 36.6 75 18 144/74 94 06/13/17 10:15 36.4 59 18 151/78 98 06/13/17 10:00 36.4 68 20 140/68 96 06/13/17 08:45 Room Air 06/13/17 07:40 36.4 75 20 149/83 (105) 99 Room Air Notes Mental Status: alert / awake / arousable, participated in evaluation Pt Amnestic to Procedure: Yes Nausea / Vomiting: adequately controlled Pain: adequately controlled Airway Patency, RR, SpO2: stable & adequate BP & HR: stable & adequate Hydration State: stable & adequate Anesthetic Complications: no major complications apparent Pt had EGD/Colonoscopy under sedation. Had copious secretions that required suctioning and NRB O2 mask used to maintain SaO2. Was awake, conversant and VSS at conclusion. Upon arrival in PACU, pt c/o chest pain. Pt has chronic angina and stated this is similar to his usual complaint. Sublingual nitroglycerin was given with gradual improvement from 5/10 to 1/10 chest pain. Labetalol 5mg IV was given for modest tachycardia, HTN. 12-lead EKG done, no change from previous. CBC sent, showed Hgb 7.4, similar to previous. Case discussed with Dr. Andrade who agreed to resume care of pt upon his return to telemetry.
[2017-06-13] MEDS: ATORVASTATIN 40 MG TAB PO SCH (20:31)
[2017-06-13] MEDS ORDERED: ISOSORBIDE MONONITRATE 60 MG TABCR PO STA (22:26)
[2017-06-14] VITALS (19 sets, daily range): BP systolic 106–158; BP diastolic 49–75; PULSE 55–74; TEMP 36.4–37.4; O2SAT 6–99
[2017-06-14] MEDS: INSULIN ASPART 100 UNITS/ML 3 ML PEN SC SCH ×8 (00:23→21:15)
[2017-06-14 01:18] LABS: HEMATOCRIT 19.8 % (42-52); HEMOGLOBIN 6.9 g/dL (14.0-18.0)
[2017-06-14] MEDS: OXYCODONE HCL IR 5 MG TAB (IMMEDIATE RELEASE) PO PRN ×3 (04:21→23:45)
--- NOTE | 2017-06-14 07:07 | GASTROENTEROLOGY PROGRESS NOTE ---
DATE: 06/13/2017 This is an updated gastroenterology inpatient progress note. SUBJECTIVE: The patient underwent upper endoscopy/push enteroscopy and colonoscopy today for hematochezia with significantly reduced hemoglobin. The patient overnight during the prep did have copious bloody output. Upper endoscopy revealed a polyp in the proximal stomach that had some oozing on its surface. This was not a high volume bleeding lesion and therefore, 2 clips were placed at the base of the polyp to hopefully minimize future bleeding. It is unclear if this represented the case; however, there are also additional polyps. There were, however, no ulcers or other bleeding disorders of such as AVM. During colonoscopy, the lower half of the colon had fresh and recent blood with some clots. There are multiple diverticula on the left side of the colon. Beyond the mid transverse colon and up to the terminal ileum, there was no appreciable blood and specifically, the TI inspection was free of any old or recent bleeding. Therefore, a colonic source is suspected. Most likely, this represents left-sided colonic diverticulosis as copious lavage was performed and no specific mucosal lesions such as polyps, ulcers, or tumors were appreciated. In addition, careful inspection of the rectum was performed. There are a few prominent rectal veins, but there is no evidence for any acute proctitis from his recent radiation therapy. I made the following recommendations. Would follow hemoglobin serially. If bleeding continues, would obtain a tagged red cell scan to see if this is going to help better localize a bleeding source, which although presumably is in the left colon, may be elsewhere in the colon. If this bleeding continues, we would either consider a surgical evaluation or transfer to a facility with Interventional Radiology that may be able to embolize a bleeding source. We will follow with you.
--- NOTE | 2017-06-14 07:33 | Clinical Documentation Query ---
QUERY 1 OF [address] BEY, In your clinical opinion is this patient being managed for: ( ) possible type II NSTEMI ( ) Not Agree ( ) Other explanation of clinical findings (Please Explain) ( ) Unable to determine (Please Define) ( ) Need to Discuss The medical record reflects the following clinical findings, treatment, and risk factors. Clinical Indicators: 82 yo male presenting with GI bleed. Following endoscopy procedures, pt developed chest pain. Trops 0.033/3.10/ third pending. EKG suggests possible lateral infarct. Hr 123-130, Hypertensive 147-176/82-117, Hgb 7.4/21.5 dropping to 6.9/19.8 Treatment: tele, IV labetalol, EKG, serial trops, O2 support, transfuse additional PRBC, imdur stat then scheduled, atenolol x 1 Risk Factors: anemia, age, hx VT, HTN, tachycardia, DM, CAD, diastolic CHF QUERY 2 OF 2 In your clinical opinion is this patient being managed for: ( ) Bleeding gastric fundus polyp likely cause of GI bleed ( ) Multiple sigmoid diverticula likely cause of GI bleed ( ) Multiple sigmoid diverticula and gastric fundus polyp likely cause of GI bleed ( ) Not Agree ( ) Other explanation of clinical findings (Please Explain) ( ) Unable to determine (Please Define) ( ) Need to Discuss The medical record reflects the following clinical findings, treatment, and risk factors. Clinical Indicators:Colonoscopy revealed multiple diverticula in colon as possible source of GI bleeding. Endoscopy revealed sessile polyp in gastric fundus with bleeding. Treatment: Transfusion PRBCs, serial CBC/H&H, IV protonix, IV fluids, endoscopy procedures, hemostatic clip placement, GI consult Risk Factors: polyp, sigmoid diverticula Please clarify and document your clinical opinion in the progress notes and discharge summary. Terms such as "probable", "suspected", "likely", "questionable", "possible", or "still to be ruled out" are acceptable. IF IN AGREEMENT, YOU MUST DOCUMENT ABOVE DIAGNOSTIC STATEMENT IN DAILY PROGRESS NOTES AND DISCHARGE SUMMARY. This document is not part of the patient's record. Thank You, Sarah Devine RN [phone]
--- NOTE | 2017-06-14 07:37 | Clinical Documentation Query ---
QUERY 1 OF 2 CLINICAL DOCUMENTATION QUERY Please see Dr. Andrade's note for documentation. Thank you. Ms. ALEXANDRE, In your clinical opinion is this patient being managed for: ( ) possible type II NSTEMI ( ) Not Agree ( ) Other explanation of clinical findings (Please Explain) ( ) Unable to determine (Please Define) ( ) Need to Discuss The medical record reflects the following clinical findings, treatment, and risk factors. Clinical Indicators: 82 yo male presenting with GI bleed. Following endoscopy procedures, pt developed chest pain. Trops 0.033/3.10/ third pending. EKG suggests possible lateral infarct. Hr 123-130, Hypertensive 147-176/82-117, Hgb 7.4/21.5 dropping to 6.9/19.8 Treatment: tele, IV labetalol, EKG, serial trops, O2 support, transfuse additional PRBC, imdur stat then scheduled, atenolol x 1 Risk Factors: anemia, age, hx NC, HTN, tachycardia, DM, CAD, diastolic CHF QUERY 2 OF 2 In your clinical opinion is this patient being managed for: ( ) Bleeding gastric fundus polyp likely cause of GI bleed ( ) Multiple sigmoid diverticula likely cause of GI bleed ( ) Multiple sigmoid diverticula and gastric fundus polyp likely cause of GI bleed ( ) Not Agree ( ) Other explanation of clinical findings (Please Explain) ( ) Unable to determine (Please Define) ( ) Need to Discuss The medical record reflects the following clinical findings, treatment, and risk factors. Clinical Indicators:Colonoscopy revealed multiple diverticula in colon as possible source of GI bleeding. Endoscopy revealed sessile polyp in gastric fundus with bleeding. Treatment: Transfusion PRBCs, serial CBC/H&H, IV protonix, IV fluids, endoscopy procedures, hemostatic clip placement, GI consult Risk Factors: polyp, sigmoid diverticula Please clarify and document your clinical opinion in the progress notes and discharge summary. Terms such as "probable", "suspected", "likely", "questionable", "possible", or "still to be ruled out" are acceptable. IF IN AGREEMENT, YOU MUST DOCUMENT ABOVE DIAGNOSTIC STATEMENT IN DAILY PROGRESS NOTES AND DISCHARGE SUMMARY. This document is not part of the patient's record. Thank You, Sarah Devine RN [phone]
[2017-06-14] MEDS ORDERED: NURSING VERBAL MED ORDER ONE ×2 (07:45→23:15)
[2017-06-14] MEDS: OXYCODONE HCL 10 MG TABCR (OXYCONTIN) PO SCH ×2 (07:55→21:13)
[2017-06-14] MEDS: PANTOprazole INJ 40 MG in SYRINGE 0 ML IV SCH ×2 (07:56→21:13)
[2017-06-14 09:41] LABS: BASO % 0.2 %; BASO ABS # 0.02 K/uL (0-0.2); EOS % 0.7 %; EOS ABS # 0.06 K/uL (0-0.5); HEMATOCRIT 24.6 % (42-52); HEMOGLOBIN 8.2 g/dL (14.0-18.0); IG# 0.03 K/uL (0.00-0.02); LYMPH ABS # 0.55 K/uL (1.2-3.4); MEAN CELL VOLUME 89.8 fL (80-100); MEAN CORPUSCULAR HEMOGLOBIN 29.9 pg (25-34); MEAN CORPUSCULAR HGB CONC 33.3 g/dl (32-36); MEAN PLATELET VOLUME 9.3 fL (7.4-10.4); MONO % 8.3 %; MONO ABS # 0.76 K/uL (0.11-0.59); NEUT % 84.5 %; NUCLEATED RED BLOOD CELL ABS 0.02 K/uL (0-0); PLATELET COUNT 138 K/uL (130-400); RED CELL DISTRIBUTION WIDTH CV 15.4 % (11.5-14.5); RED CELL DISTRIBUTION WIDTH SD 50.1 fL (36.4-46.3); WHITE BLOOD COUNT 9.12 K/uL (4.8-10.8)
--- NOTE | 2017-06-14 09:49 | Progress Note ---
Subjective Date of Service: Jun 14, 2017. Subjective Pt evaluation today including: conversation w/ patient, chart review, lab review Voiding: no voiding problems 82 yo male with gross hematuria and rectal bleeding. No specific source for bleeding found on colonoscopy yesterday. H&H dropped again overnight, now stable after receiving transfusion. He has received 5 units this admission. He feels the rectal bleeding has improved. Gross hematuria resolved. Urine is clear, yellow in urinal this morning. UC&S has not yet been collected. Problem List Medical Problems: (1) Anemia Status: Chronic (2) Cellulitis of left lower leg Status: Acute (3) Funk catheter problem Status: Acute (4) Urinary retention Status: Acute (5) Urinary retention Status: Acute (6) Wound infection Status: Acute Review of Systems Constitutional: No fever, No chills Respiratory: No shortness of breath Cardiac: No chest pain Abdomen: No pain, No nausea, No vomiting Male : No hematuria Heme: + abnormal bleeding/bruising Objective Vital Signs Date Time Temp Pulse Resp B/P (MAP) Pulse Ox O2 Delivery O2 Flow Rate FiO2 06/14/17 07:10 37.0 74 20 135/74 99 6.0 06/14/17 06:40 36.4 68 18 108/60 97 6.0 06/14/17 06:10 37.3 61 20 129/69 96 6.0 06/14/17 05:55 36.8 65 18 128/70 94 6.0 06/14/17 05:40 36.8 64 18 132/75 96 6.0 06/14/17 05:25 36.8 65 20 125/65 6 96.0 06/14/17 04:55 37.1 65 18 106/62 97 6.0 06/14/17 04:00 98 Nasal Cannula 6.0 06/14/17 03:55 36.6 62 18 129/73 96 6.0 06/14/17 03:48 36.9 68 20 119/70 (86) 95 Nasal Cannula 6.0 06/14/17 03:25 36.9 68 20 119/70 95 6.0 06/14/17 03:10 37.0 72 18 119/64 96 6.0 06/14/17 02:55 37.2 73 21 114/57 96 6.0 06/14/17 02:41 37.2 70 20 108/57 93 6.0 06/14/17 00:04 37.4 73 20 147/54 (85) 95 Nasal Cannula 6.0 06/14/17 00:00 98 Nasal Cannula 6.0 06/13/17 22:45 76 18 142/87 (105) 97 Nasal Cannula 6.0 06/13/17 21:50 36.7 74 18 154/81 98 6.0 06/13/17 20:50 36.8 71 20 157/82 98 6.0 06/13/17 20:20 36.6 67 20 147/81 94 6.0 06/13/17 20:00 98 Nasal Cannula 6.0 06/13/17 19:50 36.2 70 18 142/75 93 6.0 06/13/17 19:35 36.7 74 20 135/77 95 6.0 06/13/17 19:15 36.5 95 18 148/89 96 6.0 06/13/17 17:38 79 18 109/64 (79) 94 Nasal Cannula 6 06/13/17 17:32 147/117 (127) 06/13/17 17:25 90 18 160/76 (104) 97 Nasal Cannula 6 06/13/17 17:10 87 16 167/82 (110) 98 Nasal Cannula 6 06/13/17 16:55 88 16 152/87 (108) 98 Mask 15 06/13/17 16:45 130 16 176/89 (118) 98 Mask 15 06/13/17 16:41 123 16 165/92 (116) 98 Mask 15 06/13/17 16:30 Room Air 06/13/17 15:01 37.4 85 16 135/68 (90) 91 Room Air 06/13/17 12:30 36.6 76 18 118/58 96 06/13/17 12:15 Room Air 06/13/17 11:30 36.6 70 18 120/69 97 06/13/17 11:00 36.6 77 20 150/63 95 06/13/17 10:30 36.6 75 18 144/74 94 06/13/17 10:15 36.4 59 18 151/78 98 06/13/17 10:00 36.4 68 20 140/68 96 Physical Exam General Appearance: no apparent distress, + obese Eyes: normal inspection ENT: hearing grossly normal Neck: no JVD Respiratory/Chest: no respiratory distress, no accessory muscle use Cardiovascular: no JVD Extremities: normal inspection Neurologic/Psychiatric: alert, normal mood/affect, oriented x 3 Skin: normal color Laboratory Results Last 24 Hours Test 06/13/17 11:36 06/13/17 13:23 06/13/17 17:03 06/13/17 18:23 Bedside Glucose 178 mg/dl 158 mg/dl Hemoglobin 7.0 g/dL 7.4 g/dL Hematocrit 21.2 % 21.5 % White Blood Count 5.18 K/uL Red Blood Count 2.35 M/uL Mean Corpuscular Volume 91.5 fL Mean Corpuscular Hemoglobin 31.5 pg Mean Corpuscular Hemoglobin Concent 34.4 g/dl RDW Standard Deviation 52.8 fL RDW Coefficient of Variation 15.9 % Platelet Count 164 K/uL Mean Platelet Volume 9.3 fL Troponin I 0.033 ng/ml Test 06/13/17 21:12 06/14/17 00:05 06/14/17 00:52 06/14/17 05:43 Bedside Glucose 151 mg/dl 169 mg/dl 184 mg/dl Hemoglobin 6.9 g/dL Hematocrit 19.8 % Troponin I 3.100 ng/ml Test 06/14/17 09:12 White Blood Count 9.12 K/uL Red Blood Count 2.74 M/uL Hemoglobin 8.2 g/dL Hematocrit 24.6 % Mean Corpuscular Volume 89.8 fL Mean Corpuscular Hemoglobin 29.9 pg Mean Corpuscular Hemoglobin Concent 33.3 g/dl Platelet Count 138 K/uL Mean Platelet Volume 9.3 fL Neutrophils (%) (Auto) 84.5 % Lymphocytes (%) (Auto) 6.0 % Monocytes (%) (Auto) 8.3 % Eosinophils (%) (Auto) 0.7 % Basophils (%) (Auto) 0.2 % Neutrophils # (Auto) 7.70 K/uL Lymphocytes # (Auto) 0.55 K/uL Monocytes # (Auto) 0.76 K/uL Eosinophils # (Auto) 0.06 K/uL Basophils # (Auto) 0.02 K/uL RDW Standard Deviation 50.1 fL RDW Coefficient of Variation 15.4 % Immature Granulocyte % (Auto) 0.3 % Immature Granulocyte # (Auto) 0.03 K/uL Nucleated RBC Absolute Count (auto) 0.02 K/uL Nucleated Red Blood Cells % 0.2 % Assessment and Plan A/P: Gross hematuria, rectal bleeding AFVSS. Gross hematuria resolved. Will order a UC&S again this morning. Cytology negative for high-grade urothelial carcinoma. No abnormal findings on CT to account for gross hematuria. Will complete evaluation for hematuria with an outpatient cysto next week with Dr. Martinez as scheduled. 06-21 at 12:30pm. Pt's most critical issue is his GI bleeding. Management per GI. No further intervention at this time. Will sign off for now. Recall PRN issues.
[2017-06-14 10:01] LABS: CALCIUM 7.7 mg/dl (8.5-10.1); CREATININE 0.91 mg/dl (0.60-1.40); POTASSIUM 3.9 mmol/L (3.5-5.1)
--- NOTE | 2017-06-14 15:49 | DIAGNOSTIC IMAGING REPORT ---
TAGGED RED BLOOD CELL GI BLEEDING SCAN CLINICAL HISTORY: Active bleeding in descending colon. COMPARISON STUDY: CT of the abdomen and pelvis June 12, 2017. TECHNIQUE: Following the IV administration of 27.2 mCi of technetium 99m UltraTag labeled red blood cells, nuclear bleeding scan was performed. Anterior flow images were obtained every 2 seconds for a total 48 seconds. Anterior static images were obtained every 5 minutes for a total of 60 minutes. FINDINGS: Expected radiotracer distribution is noted on this examination. No findings are noted to suggest active GI bleed during this 60 minute examination. Progressive uptake within the pelvis reflects uptake within the bladder. IMPRESSION: No evidence for active GI bleed during this 60 minute examination. Electronically signed by: Chris Villegas M.D. 06/14/2017 3:47 PM Dictated Date/Time: 06/14/2017 3:42 PM
[2017-06-14 16:51] LABS: HEMATOCRIT 26.3 % (42-52); HEMOGLOBIN 8.9 g/dL (14.0-18.0)
--- NOTE | 2017-06-14 17:23 | PROGRESS NOTE ---
DATE: 06/14/2017 SUBJECTIVE: The patient reports no abdominal pain. He has had no bowel movements today. OBJECTIVE: VITAL SIGNS: His blood pressure is 134/73, pulse 61, temperature is 37.3, and room air saturation is 96%. Hemoglobin is 8.2 today after 5 units of blood. White count is 9.12 and platelets 138. IMPRESSION: The patient has lower GI bleeding. The patient underwent an EGD and colonoscopy by Dr. Harley and the only thing that was found of significant was left sided diverticulosis. There was no obvious bleeding at the time of the procedure and there was no blood coming from the ileum at that time indicating that bleeding is lower GI and given his painless bleeding and large volume and his age, it is most likely that this is a diverticular bleed that appears to have stopped. Most of the time, it stopped without any major intervention. Hopefully, if he remains stable, we can advance his diet and he can be followed up as an outpatient in the next [address] Hsieh will be covering this weekend.
[2017-06-14] MEDS: SODIUM CHLORIDE 0.9% 1000ML 1,000 ML IV SCH ×2 (17:57→19:00)
--- NOTE | 2017-06-14 19:32 | CARDIOLOGY CONSULTATION ---
DATE OF CONSULTATION: 06/14/2017 TIME: 18:31 p.m. CONSULTING PHYSICIAN: Ney Andrade MD. REASON FOR CONSULTATION: Demand ischemia/GI bleed. PRIMARY SCANNING SUPERVISOR: Reji Rose MD. HISTORY OF PRESENT ILLNESS: Mr. Hallman is a very pleasant 82-year-old gentleman with a history significant for multivessel CAD status post CABG x4 in 1994 with chronic stable angina, chronic diastolic CHF, hypertension, dyslipidemia, type 2 diabetes and prostate cancer with recent XRT therapy. He was admitted to [facility] on 06/12/2017 with bright red blood per rectum. He was found to be anemic with hemoglobin levels as low as 6.7 on 06/13/2017. His highest hemoglobin thus far was today 8.9 this afternoon. He has received 5 units of packed red blood cells and has undergone colonoscopy and EGD yesterday as well as a tagged red blood cell GI bleeding scan today which demonstrated no evidence for active GI bleeding. Fortunately, he has not had any further bowel movements today and therefore no further hematochezia. Colonoscopy apparently did demonstrate fresh blood with some clots in the lower half of the colon with multiple diverticula on the left side of the colon and therefore colonic source of his bleed was suspected by GI. Yesterday he did have an episode of what he describes as angina. It was a substernal chest tightness that did not radiate. It was resolved after 2 nitroglycerin tablets in approximately 20 minutes overall. He states that this is the typical angina that he has had in the past with exertion. He also had some episodes while in bed in the past. Recently, he was seen by Alpesh Rees in the office on 03/27/2017, at which point his isosorbide was increased from 120-180 mg daily for worsening angina. Since that time he has not had any further issues until yesterday. He is currently chest pain free. He denies shortness of breath, syncope, near syncope, palpitations. He does have chronic lymphedema with the left lower extremity being worse than the right. When he presented with his GI bleeding, Dr. Andrade reports that some of his antianginals were held such as isosorbide and atenolol as he was actively bleeding and hypotensive upon presentation with systolic blood pressures in the 80s. Atenolol and isosorbide mononitrate were restarted yesterday after his chest discomfort. In regards to his coronary history, he had CABG x4 in 1994 and was evaluated at [facility] several years ago and was found to have his grafts occluded and was told that he is no longer a candidate for further revascularization. He has been maintained on aspirin and Plavix, which have been held due to his GI bleeding. REVIEW OF SYSTEMS: As above and review of systems otherwise negative/unremarkable. PAST MEDICAL HISTORY: 1. CAD status post CABG x4 in 1994 consisting of JAMES to LAD, SVG to OM, SVG to RCA and SVG to diagonal. Defibrillator described as being occluded with medical therapy recommended. 2. Chronic stable angina. 3. Diastolic CHF. 4. Hypertension. 5. Dyslipidemia. 6. Type 2 diabetes. 7. Prostate cancer status post XRT. 8. Reflux esophagitis. 9. Status post left hip replacement. 10. Status post knee replacement. CURRENT MEDICATIONS: Include atenolol 50 mg daily, atorvastatin 40 mg at bedtime, isosorbide 180 mg at bedtime, Protonix 40 mg IV b.i.d. ALLERGIES: INCLUDE AMOXICILLIN, CELECOXIB, DICLOFENAC, NAPROXEN. SOCIAL HISTORY: Lives at home with his . Quit smoking 30-40 years ago after 60 pack years. Occasional alcohol. He is currently unaccompanied in his hospital room. FAMILY HISTORY: Pertinent for positive CAD. PHYSICAL EXAMINATION: VITAL SIGNS: Temperature 36.7 degrees, heart rate 61 beats per minute, respiration rate 18, blood pressure 158/62 mmHg; however, his blood pressure has otherwise been normotensive throughout the day. Oxygen saturation 94% on room air. I's and O's negative 2.3 liters yesterday. Weight is 131 kg. GENERAL: No acute distress. He is alert and oriented. HEENT: Anicteric sclerae. NECK: Thick neck, no appreciable JVD. No bruits. Normal carotid upstrokes bilaterally. CARDIAC EXAM: PMI nondisplaced. No ventricular heave. Regular. Distant heart sounds. Normal S1, S2. No audible murmurs, rubs or gallops. LUNGS: Clear to auscultation bilaterally without wheezes, rales or rhonchi. ABDOMEN: Soft, nontender, nondistended, normoactive bowel sounds, no bruits noted. EXTREMITIES: Bilateral lower extremity lymphedema, left greater than right. 2+ radial pulses bilaterally. 2+ dorsalis pedis pulses bilaterally. PSYCHIATRIC: Affect appears appropriate. LABORATORY DATA: White blood cell count 9.12, hemoglobin 8.9 and trending upward, platelets 138. Sodium 137, potassium 3.9, BUN 18, creatinine 0.91. Peak troponin of 3.1 and has since trended downward. ECG upon presentation personally reviewed demonstrating sinus rhythm with PVCs. Right bundle branch block and left anterior fascicular block. Repeat ECG 06/13/2017 at 1650 demonstrated sinus tachycardia at 101 beats per minute. Right bundle branch block. Cannot rule out anterolateral infarct. ECG today personally reviewed. Sinus rhythm, first degree AV block, right bundle branch block. This study did have artifact which may affect the interpretation. There is nonspecific T-wave abnormality now in the anterolateral leads. Most recent echo available was 10/22/2014 where LV systolic function and wall motion were described as normal with mild LVH. Type 1 diastolic dysfunction reported. Left atrium was moderately dilated. Telemetry strips were personally reviewed. He did have a ventricular triplet throughout this hospitalization. Otherwise, sinus rhythm. ASSESSMENT AND PLAN: 1. Non-ST elevation myocardial infarction: He did have an episode of angina yesterday, but this was in the setting of profound anemia with hemoglobin less than 7 and active gastrointestinal bleeding. He has known inoperable coronary artery disease with occluded bypass grafts done several years ago. Recommend conservative medical therapy. Aspirin and Plavix have been discontinued due to active life threatening bleeding. Symptoms also occurred while isosorbide mononitrate and beta pallavi therapy was held due to presenting with active bleed and hypotension. Agree with restarting the beta pallavi and isosorbide mononitrate and he has not had any further angina. Echocardiogram will be ordered to reassess left ventricular systolic function following myocardial infarction. Medical therapy can be further titrated as necessary. Cardiac catheterization is not indicated given his what was thought to be inoperable coronary artery disease in the past but also due to the fact that he has acute life threatening gastrointestinal bleeding. 2. Coronary artery disease status post coronary artery bypass grafting x4: Reportedly has occluded bypass grafts. Medical therapy recommended as above. Continue high intensity statin therapy and beta pallavi as well as nitrate therapy. 3. Hypertension: Blood pressure has mostly been normotensive today. Continue current regimen. 4. Acute blood loss anemia from gastrointestinal bleed: As per GI and primary service. Fortunately, his hemoglobin has improved following 5 units of packed red blood cells and he reports no further bleeding today. 5. Disposition: Dr. Rose his primary licensed funeral director will resume his cardiology care tomorrow. 6. Highly complex medical issues. Thank for allowing me to participate in care of Mr. Hallman.
[2017-06-14] MEDS: ATORVASTATIN 40 MG TAB PO SCH (21:13)
[2017-06-14] MEDS: ISOSORBIDE MONONITRATE 60 MG TABCR PO SCH (21:13)
--- NOTE | 2017-06-14 22:02 | Progress Note ---
Subjective Date of Service: Jun 14, 2017. Subjective Pt evaluation today including: conversation w/ patient, physical exam, chart review 82 year old male who is in the hospital for lower GI bleed. Patient reports having more energy today. Patient denies having a bloody BM today. He in fact has not had a BM today. Patient's has noticed that he has more color to him. Patient reports that if needed he can be transferred to [facility]. Patient denies any chest pain now, or shortness of breath, or orthopnea. Problem List Medical Problems: (1) Anemia Status: Chronic (2) Cellulitis of left lower leg Status: Acute (3) Kyle catheter problem Status: Acute (4) Urinary retention Status: Acute (5) Urinary retention Status: Acute (6) Wound infection Status: Acute Review of Systems Constitutional: No fever, No chills Respiratory: No cough, No sputum Cardiac: No chest pain, No orthopnea Abdomen: No pain, No nausea Neurologic: No memory loss Psychiatric: No depression symptoms, No anhedonism Endo: + fatigue Skin: No rash, No itch All Other Systems: Reviewed and Negative Medications Current Inpatient Medications Medications (Trade) Dose Ordered Sig/Jez Route Start Time Stop Time Status Last Admin Dose Admin Sodium Chloride 1,000 ml @ 100 mls/hr Q10H IV 06/12/17 13:00 07/12/17 12:59 06/15/17 05:01 100 MLS/HR Acetaminophen (Tylenol Tab) 650 mg Q4H PRN PO 06/12/17 09:45 07/12/17 09:44 06/13/17 01:32 650 MG Ondansetron HCl (Zofran Inj) 4 mg Q6H PRN IV 06/12/17 09:45 07/12/17 09:44 Atorvastatin Calcium (Lipitor Tab) 40 mg HS PO 06/12/17 21:00 07/12/17 20:59 06/14/17 21:13 40 MG Oxycodone HCl (Roxicodone Immediate Rel Tab) 5 mg Q6H PRN PO 06/12/17 09:45 06/26/17 09:44 06/14/17 23:45 5 MG Miscellaneous Information (Order Awaiting Action) 1 ea QS N/A 06/12/17 16:00 07/12/17 15:59 Oxybutynin Chloride (Ditropan Tab) 2.5 mg TID PRN PO 06/12/17 09:45 07/12/17 09:44 Insulin Aspart (novoLOG ASPART) SLIDING SCALE If C... ACHS SC 06/12/17 16:30 06/14/18 11:59 06/14/17 21:15 2 UNITS Glucose (Glucose 40% Gel) 15-30 GRAMS 15 GRAMS... UD PRN PO 06/12/17 11:15 07/12/17 11:14 Glucose (Glucose Chew Tab) 4-8 Tablets 4 Tabl... UD PRN PO 06/12/17 11:15 07/12/17 11:14 Dextrose (Dextrose 50% 50ML Syringe) 25-50ML OF 50% DW IV FOR... UD PRN IV 06/12/17 11:15 07/12/17 11:14 Glucagon (Glucagon Inj) 1 mg UD PRN SQ 06/12/17 11:15 07/12/17 11:14 Pantoprazole Sodium 40 mg/ Syringe 10 ml @ 5 mls/min BID@0900,2100 IV 06/12/17 21:00 07/12/17 20:59 06/14/17 21:13 5 MLS/MIN Ioversol (Optiray 320) 125 ml UD PRN IV 06/12/17 13:45 06/16/17 13:44 Lidocaine HCl (Xylocaine Jelly 2%) 5 ml ONE PRN EXT 06/12/17 15:00 07/12/17 14:59 Oxycodone HCl (Oxycontin Tab) 10 mg Q12 PO 06/12/17 18:15 06/26/17 18:14 06/14/17 21:13 10 MG Isosorbide Mononitrate (Imdur Ext Rel Tab) 180 mg HS PO 06/14/17 21:00 07/14/17 20:59 06/14/17 21:13 180 MG Atenolol (Tenormin Tab) 50 mg QAM PO 06/15/17 09:00 07/15/17 08:59 Objective Vital Signs Date Time Temp Pulse Resp B/P (MAP) Pulse Ox O2 Delivery O2 Flow Rate FiO2 06/14/17 20:00 Room Air 06/14/17 19:24 36.7 55 18 107/49 (68) 90 Room Air 06/14/17 16:00 Room Air 06/14/17 15:50 36.7 61 18 158/62 (94) 94 06/14/17 12:00 Room Air 06/14/17 11:31 37.3 61 20 134/73 (93) 96 6.0 06/14/17 08:45 Room Air 06/14/17 07:10 37.0 74 20 135/74 99 6.0 06/14/17 06:40 36.4 68 18 108/60 97 6.0 06/14/17 06:10 37.3 61 20 129/69 96 6.0 06/14/17 05:55 36.8 65 18 128/70 94 6.0 06/14/17 05:40 36.8 64 18 132/75 96 6.0 06/14/17 05:25 36.8 65 20 125/65 6 96.0 06/14/17 04:55 37.1 65 18 106/62 97 6.0 06/14/17 04:00 98 Nasal Cannula 6.0 06/14/17 03:55 36.6 62 18 129/73 96 6.0 06/14/17 03:48 36.9 68 20 119/70 (86) 95 Nasal Cannula 6.0 06/14/17 03:25 36.9 68 20 119/70 95 6.0 06/14/17 03:10 37.0 72 18 119/64 96 6.0 06/14/17 02:55 37.2 73 21 114/57 96 6.0 06/14/17 02:41 37.2 70 20 108/57 93 6.0 06/14/17 00:04 37.4 73 20 147/54 (85) 95 Nasal Cannula 6.0 06/14/17 00:00 98 Nasal Cannula 6.0 06/13/17 22:45 76 18 142/87 (105) 97 Nasal Cannula 6.0 Physical Exam Comments: General Appearance: WD/WN, + mild distress, + obese, + pertinent finding more pink pallor Head: normocephalic, atraumatic Eyes: PERRL, EOMI ENT: hearing grossly normal, pharynx normal, + pertinent finding (MMM) Neck: supple, no JVD Respiratory/Chest: lungs clear, no respiratory distress, no accessory muscle use Cardiovascular: regular rate, rhythm, no murmur, normal peripheral pulses Abdomen/GI: normal bowel sounds, no tenderness, no Murpheys sign or rebound tenderness, Back: normal inspection, no muscle spasm Extremities/Musculoskeletal: no calf tenderness, + pedal edema (2+ nonpitting edema BLE, worse in LLE ) Neurologic/Psych: alert, normal mood/affect, oriented x 3 Skin: warm/dry, Laboratory Results Last 24 Hours Test 06/14/17 00:05 06/14/17 00:52 06/14/17 05:43 06/14/17 09:12 Bedside Glucose 169 mg/dl 184 mg/dl Hemoglobin 6.9 g/dL 8.2 g/dL Hematocrit 19.8 % 24.6 % Troponin I 3.100 ng/ml 2.620 ng/ml White Blood Count 9.12 K/uL Red Blood Count 2.74 M/uL Mean Corpuscular Volume 89.8 fL Mean Corpuscular Hemoglobin 29.9 pg Mean Corpuscular Hemoglobin Concent 33.3 g/dl Platelet Count 138 K/uL Mean Platelet Volume 9.3 fL Neutrophils (%) (Auto) 84.5 % Lymphocytes (%) (Auto) 6.0 % Monocytes (%) (Auto) 8.3 % Eosinophils (%) (Auto) 0.7 % Basophils (%) (Auto) 0.2 % Neutrophils # (Auto) 7.70 K/uL Lymphocytes # (Auto) 0.55 K/uL Monocytes # (Auto) 0.76 K/uL Eosinophils # (Auto) 0.06 K/uL Basophils # (Auto) 0.02 K/uL RDW Standard Deviation 50.1 fL RDW Coefficient of Variation 15.4 % Immature Granulocyte % (Auto) 0.3 % Immature Granulocyte # (Auto) 0.03 K/uL Nucleated RBC Absolute Count (auto) 0.02 K/uL Nucleated Red Blood Cells % 0.2 % Red Blood Cell Morphology Unremarkable Sodium Level 137 mmol/L Potassium Level 3.9 mmol/L Chloride Level 106 mmol/L Carbon Dioxide Level 26 mmol/L Anion Gap 5.0 mmol/L Blood Urea Nitrogen 18 mg/dl Creatinine 0.91 mg/dl Est Creatinine Clear Calc Drug Dose 82.5 ml/min Estimated GFR () 90.0 Estimated GFR (Non- 77.7 BUN/Creatinine Ratio 20.2 Random Glucose 158 mg/dl Calcium Level 7.7 mg/dl Test 06/14/17 11:48 06/14/17 16:04 06/14/17 17:18 06/14/17 20:45 Bedside Glucose 182 mg/dl 150 mg/dl 195 mg/dl Hemoglobin 8.9 g/dL Hematocrit 26.3 % Assessment and Plan Mr. Hallman is an 82 yo M was recently discharged from urology service on 06/10 after five days of amphotericin B bladder instillation for Jodi Glabrata UTI. He has a past medical history of CAD s/p [place] and CABG, GERD, HTN, HLD, adenocarcinoma s/p TURP and radiation, BPH, DMII, lymphedema bilateral lower extremities now presenting with a GI bleed which appears to be lower GI with BRBPR. Pt is slightly hypotensive and receiving fluid resuscitation. GI Bleed Acute blood loss anemia - Did not have more bloody bowel movements -despite this, patient has required 5 PRBCs in this short term, and levels have not risen appropiately in the AM. -This led me to call [facility] for possible transfer for Interventional radiology embolization -Currently in [facility], they do not have any beds available. -Colonoscopy was done yesterday and no active bleeding was shown -Red blood scan was done today and was negative. - protonix IV BID - Continue IVFs at 100mL/hr - BP remains stable at this time despite acute bleed Hematuria - Resolved at this time - Pt recently treated for fungal uti - Consult urology since he was recently discharged from their service and now with clot- possible that this is residual from bladder kyle irrigation, or residual cystitis since being on plavix. - Appreciate recommendations. - Plan for formal cystoscopy in [address] Martinez Fungal UTI - completed 5 days of amphotericin B bladder instillations on 06/10 - Urology consult as above Hx Prostate Cancer - s/p TURP and XRT. Recently stopped Casodex. CAD sp CBG x 4 vessels in 1994 Diastolic CHF HTN HLD - Restarted BB, and Imdur. DMII - HOLD Actos and glimepride - ISS, bsg ac&hs GERD - continue protonix as above Lymphedema - patient usually has his bowstring maker who has been trained by a lymphedema specialist wrap his left leg but he feels he will be ok without it for his time in the hospital - keep extremity elevated when resting - No teds or scds at this time - Consider wound consultation for leg wrapping today Chronic Left Hip Bursitis - pt follows with Aime Rendon PA-C and last received corticosteroid injections ~3 weeks ago. - Continue Oxy IR as scheduled. Pt can not afford oxycontin ER as an outpatient so would not recommend that here in hospital. DVT ppx: no chemical anticoagulation at this time due to GI bleed CODE STATUS: FULL CODE Disposition: From home, lives with , will likely be here ~2 more days pending blood levels.
[2017-06-14 22:41] LABS: CALCIUM 7.9 mg/dl (8.5-10.1); CREATININE 0.96 mg/dl (0.60-1.40); POTASSIUM 3.5 mmol/L (3.5-5.1)
[2017-06-15] VITALS: BP 125/70; PULSE 60; TEMP 36.9; O2SAT 91
[2017-06-15] MEDS: SODIUM CHLORIDE 0.9% 1000ML 1,000 ML IV SCH ×2 (05:01→15:03)
[2017-06-15 05:29] VITALS: BP 124/69; PULSE 55; TEMP 36.4; O2SAT 93
[2017-06-15 06:18] LABS: BASO % 0.3 %; BASO ABS # 0.02 K/uL (0-0.2); EOS % 3.7 %; EOS ABS # 0.22 K/uL (0-0.5); HEMATOCRIT 23.8 % (42-52); HEMOGLOBIN 7.9 g/dL (14.0-18.0); IG# 0.03 K/uL (0.00-0.02); LYMPH % 8.9 %; LYMPH ABS # 0.53 K/uL (1.2-3.4); MEAN CELL VOLUME 90.8 fL (80-100); MEAN CORPUSCULAR HEMOGLOBIN 30.2 pg (25-34); MEAN CORPUSCULAR HGB CONC 33.2 g/dl (32-36); MEAN PLATELET VOLUME 9.6 fL (7.4-10.4); MONO % 10.1 %; NEUT % 76.5 %; NEUT ABS # 4.57 K/uL (1.4-6.5); PLATELET COUNT 152 K/uL (130-400); RED CELL DISTRIBUTION WIDTH CV 15.8 % (11.5-14.5); RED CELL DISTRIBUTION WIDTH SD 51.9 fL (36.4-46.3); WHITE BLOOD COUNT 5.97 K/uL (4.8-10.8)
[2017-06-15 08:29] VITALS: BP 162/81; PULSE 59; TEMP 36.6; O2SAT 93
[2017-06-15] MEDS: PANTOprazole INJ 40 MG in SYRINGE 0 ML IV SCH ×2 (09:09→20:44)
[2017-06-15] MEDS: OXYCODONE HCL 10 MG TABCR (OXYCONTIN) PO SCH ×2 (09:09→20:43)
[2017-06-15] MEDS: INSULIN ASPART 100 UNITS/ML 3 ML PEN SC SCH ×4 (09:10→20:43)
--- NOTE | 2017-06-15 11:57 | ECHOCARDIOGRAM REPORT ---
*NOTICE TO RECEIVING CONSTITUTION PARTY AGENCY This information is strictly Confidential and protected under [place] law. [place] law prohibits you from making any further disclosure of this information unless further disclosure is expressly permitted by the written consent of the person to whom it pertains or is authorized by law. A general authorization for the release of medical or other information is not sufficient for this purpose. Hospital accepts no responsibility if the information is made available to any other person, INCLUDING THE PATIENT. Interpretation Summary * Name: ROBY DUONG Study Date: 06/15/2017 07:45 AM BP: 162/81 mmHg * Patient Location: [facility]\S\N289\S\2 HR: 53 * : 1935 (M/d/yyyy) Gender: Male Height: 69 in * Age: 82 yrs Ethnicity: [place] Weight: 288 lb * Ordering Physician: Bakari Maldonado * Referring Physician: Self, Referred * Performed By: Viji Guzman RDCS * * Reason For Study: AMI * BSA: 2.4 m2 * -- Conclusions -- * Compared with 11/25/12 study, probably no significant change. * The study was technically limited. * The left ventricle is grossly normal size. * There is normal left ventricular wall thickness. * Left ventricular systolic function is normal. * Ejection Fraction = 55-60%. * No regional wall motion abnormalities noted. * No obvious valvular lesions on technically limited Doppler. Procedure Details * A contrast injection of Definity was performed to improve assessment of LV function. * Contrast was injected into an intravenous site in the left arm. * One vial of Definity ultrasound contrast was diluted in normal saline to a total volume of 10 ml. A total of '2' ml of solution was administered during imaging. * Lot # [id number] of Definity utilized for procedure. * Expiration date 1 AUG 26. * The attending nurse who injected the contrast agent was RAMBO SANDOVAL RN. * The study was technically limited. Left Ventricle * The left ventricle is grossly normal size. * There is normal left ventricular wall thickness. * Left ventricular systolic function is normal. * Ejection Fraction = 55-60%. * No regional wall motion abnormalities noted. Right Ventricle * The right ventricle is grossly normal size. * The right ventricular systolic function is normal. Atria * The left atrium is mildly dilated. * Right atrial size is normal. * The interatrial septum is intact with no evidence for an atrial septal defect. Mitral Valve * The mitral valve is normal in structure and function. * Mild mitral regurgitation suggested by pulsed wave Doppler, not seen on color Doppler. Tricuspid Valve * The tricuspid valve is normal in structure and function. * Significant tricuspid regurgitation is absent. Aortic Valve * Aortic valve sclerosis mild, without significant aortic valvular stenosis. * There is no significant aortic regurgitation. Pulmonic Valve * The pulmonic valve is not well seen, but is grossly normal. * There is no significant pulmonary regurgitation. Great Vessels * The aortic root is normal size. * No obvious dissection could be visualized. * The pulmonary is not well visualized. Pericardium/Pleural * There is no pericardial effusion. Great Vessels * Normal inferior vena cava diameter and respiratory variation suggests normal central venous pressure. MMode 2D Measurements and Calculations Ao root diam 3.7 cm Ao root area 11.0 cm\S\2 LA dimension 3.7 cm LA/Ao 0.98 Doppler Measurements and Calculations MV E max jaqueline 80.4 cm/sec MV A max jaqueline 68.3 cm/sec MV E/A 1.2 MV dec time 0.31 sec Ao V2 max 222.5 cm/sec Ao max PG 19.8 mmHg Ao max PG (full) 16.9 mmHg Ao V2 mean 144.9 cm/sec Ao mean PG 9.7 mmHg Ao mean PG (full) 8.1 mmHg Ao V2 VTI 50.3 cm LV V1 max PG 2.9 mmHg LV V1 mean PG 1.6 mmHg LV V1 max 84.8 cm/sec LV V1 mean 60.0 cm/sec LV V1 VTI 21.4 cm SV(Ao) 553.2 ml SI(Ao) 229.4 ml/m\S\2
[2017-06-15 12:53] LABS: HEMATOCRIT 24.6 % (42-52); HEMOGLOBIN 8.3 g/dL (14.0-18.0)
--- NOTE | 2017-06-15 13:31 | CARDIOLOGY PROGRESS NOTE ---
DATE: 06/15/2017 SUBJECTIVE: Mr. Hallman is resting comfortably at the bedside without complaints of chest pain or dyspnea. He did have an episode of melena earlier today. OBJECTIVE: VITAL SIGNS: Blood pressure 160/80 with a regular pulse of 60. Respiratory rate is 18. The patient is afebrile at 36.0 degrees Celsius. Saturations 93% on room air. NECK: Supple with full carotid upstrokes. There are no obvious bruits. Jugular venous pressure is difficult to assess. CARDIOVASCULAR: Reveals a regular rhythm with a normal S1 and S2. No S3, S4, or murmurs are noted. LUNGS: Clear without rales, rhonchi, or wheezes. ABDOMEN: Soft, obese without bruits. EXTREMITIES: Reveal intact radial artery pulses bilaterally. Bilateral lower extremity lymph edema is noted. DATA: CBC notes a hemoglobin of 8.3 and hematocrit of 24. Electrolytes note a sodium of 139, potassium 3.5, chloride 107, bicarbonate 27, BUN 16, creatinine 0.96 and glucose 166. centerpuncher is benign. IMPRESSION AND PLAN: 1. Elevated troponin -- was in the setting of profound anemia with active GI bleeding and known inoperable coronary artery disease. I do not feel this represents an acute myocardial infarction per se. Continue with medical management. Echocardiogram today notes normal left ventricular systolic function without wall motion abnormalities. 2. Coronary artery disease -- status post coronary artery bypass graft x4 in 1994. He was again studied at the [facility] noted to have all grafts down and medical management recommended at that time. 3. Chronic stable angina pectoris. 4. Diastolic congestive heart failure -- compensated at this time. 5. Hypertension -- controlled. 6. Hypercholesterolemia -- continue statin. 7. Gastrointestinal bleed -- workup in progress.
--- NOTE | 2017-06-15 14:22 | Gastroenterology Progress Note ---
Progress Note Date of Service: Jun 15, 2017 Subjective Pt evaluation today including: conversation w/ patient, physical exam, chart review, lab review, review of studies, review of inpatient medication list CC f/u GI bleeding HPI Pt states since colonoscopy had one bm and was this am dark red blood. No abd pain. Tolerating liquid diet. Review of Systems Respiratory: No shortness of breath Cardiac: No chest pain Medications Current Inpatient Medications Medications (Trade) Dose Ordered Sig/Jez Route Start Time Stop Time Status Last Admin Dose Admin Sodium Chloride 1,000 ml @ 100 mls/hr Q10H IV 06/12/17 13:00 07/12/17 12:59 06/15/17 05:01 100 MLS/HR Acetaminophen (Tylenol Tab) 650 mg Q4H PRN PO 06/12/17 09:45 07/12/17 09:44 06/13/17 01:32 650 MG Ondansetron HCl (Zofran Inj) 4 mg Q6H PRN IV 06/12/17 09:45 07/12/17 09:44 Atorvastatin Calcium (Lipitor Tab) 40 mg HS PO 06/12/17 21:00 07/12/17 20:59 06/14/17 21:13 40 MG Oxycodone HCl (Roxicodone Immediate Rel Tab) 5 mg Q6H PRN PO 06/12/17 09:45 06/26/17 09:44 06/14/17 23:45 5 MG Miscellaneous Information (Order Awaiting Action) 1 ea QS N/A 06/12/17 16:00 07/12/17 15:59 Oxybutynin Chloride (Ditropan Tab) 2.5 mg TID PRN PO 06/12/17 09:45 07/12/17 09:44 Insulin Aspart (novoLOG ASPART) SLIDING SCALE If C... ACHS SC 06/12/17 16:30 06/14/18 11:59 06/15/17 12:21 6 UNITS Glucose (Glucose 40% Gel) 15-30 GRAMS 15 GRAMS... UD PRN PO 06/12/17 11:15 07/12/17 11:14 Glucose (Glucose Chew Tab) 4-8 Tablets 4 Tabl... UD PRN PO 06/12/17 11:15 07/12/17 11:14 Dextrose (Dextrose 50% 50ML Syringe) 25-50ML OF 50% DW IV FOR... UD PRN IV 06/12/17 11:15 07/12/17 11:14 Glucagon (Glucagon Inj) 1 mg UD PRN SQ 06/12/17 11:15 07/12/17 11:14 Pantoprazole Sodium 40 mg/ Syringe 10 ml @ 5 mls/min BID@0900,2100 IV 06/12/17 21:00 07/12/17 20:59 06/15/17 09:09 5 MLS/MIN Ioversol (Optiray 320) 125 ml UD PRN IV 06/12/17 13:45 06/16/17 13:44 Lidocaine HCl (Xylocaine Jelly 2%) 5 ml ONE PRN EXT 06/12/17 15:00 07/12/17 14:59 Oxycodone HCl (Oxycontin Tab) 10 mg Q12 PO 06/12/17 18:15 06/26/17 18:14 06/15/17 09:09 10 MG Isosorbide Mononitrate (Imdur Ext Rel Tab) 180 mg HS PO 06/14/17 21:00 07/14/17 20:59 06/14/17 21:13 180 MG Atenolol (Tenormin Tab) 50 mg QAM PO 06/15/17 09:00 07/15/17 08:59 06/15/17 09:08 50 MG Objective Vital Signs Date Time Temp Pulse Resp B/P (MAP) Pulse Ox O2 Delivery O2 Flow Rate FiO2 06/15/17 12:30 Room Air 06/15/17 08:45 Room Air 06/15/17 08:29 36.6 59 18 162/81 (108) 93 Room Air 06/15/17 05:29 36.4 55 16 124/69 (87) 93 Room Air 06/15/17 04:00 Room Air 06/15/17 00:00 36.9 60 16 125/70 (88) 91 06/14/17 23:50 Room Air 06/14/17 20:00 Room Air 06/14/17 19:24 36.7 55 18 107/49 (68) 90 Room Air 06/14/17 16:00 Room Air 06/14/17 15:50 36.7 61 18 158/62 (94) 94 Physical Exam General Appearance: WD/WN, no apparent distress Respiratory/Chest: lungs clear, no respiratory distress Cardiovascular: no murmur Abdomen: normal bowel sounds, non tender, soft, no organomegaly Neurologic/Psych: alert, normal mood/affect, oriented x 3 Skin: normal color Laboratory Results Last 24 Hours Test 06/14/17 16:04 06/14/17 17:18 06/14/17 20:45 06/14/17 22:12 Hemoglobin 8.9 g/dL Hematocrit 26.3 % Bedside Glucose 150 mg/dl 195 mg/dl Sodium Level 139 mmol/L Potassium Level 3.5 mmol/L Chloride Level 107 mmol/L Carbon Dioxide Level 27 mmol/L Anion Gap 6.0 mmol/L Blood Urea Nitrogen 16 mg/dl Creatinine 0.96 mg/dl Est Creatinine Clear Calc Drug Dose 78.2 ml/min Estimated GFR () 84.4 Estimated GFR (Non- 72.8 BUN/Creatinine Ratio 17.0 Random Glucose 166 mg/dl Calcium Level 7.9 mg/dl Test 06/15/17 05:29 06/15/17 07:54 06/15/17 12:12 06/15/17 12:22 White Blood Count 5.97 K/uL Red Blood Count 2.62 M/uL Hemoglobin 7.9 g/dL 8.3 g/dL Hematocrit 23.8 % 24.6 % Mean Corpuscular Volume 90.8 fL Mean Corpuscular Hemoglobin 30.2 pg Mean Corpuscular Hemoglobin Concent 33.2 g/dl Platelet Count 152 K/uL Mean Platelet Volume 9.6 fL Neutrophils (%) (Auto) 76.5 % Lymphocytes (%) (Auto) 8.9 % Monocytes (%) (Auto) 10.1 % Eosinophils (%) (Auto) 3.7 % Basophils (%) (Auto) 0.3 % Neutrophils # (Auto) 4.57 K/uL Lymphocytes # (Auto) 0.53 K/uL Monocytes # (Auto) 0.60 K/uL Eosinophils # (Auto) 0.22 K/uL Basophils # (Auto) 0.02 K/uL RDW Standard Deviation 51.9 fL RDW Coefficient of Variation 15.8 % Immature Granulocyte % (Auto) 0.5 % Immature Granulocyte # (Auto) 0.03 K/uL Red Blood Cell Morphology Unremarkable Bedside Glucose 153 mg/dl 155 mg/dl Assessment and Plan GI bleeding--hopefully this blood this am is old. However, if starts bleeding then either need to send to [place] or if stays here then supportive care with blood products. Suspect diverticula is source. Would stay on clear liquid diet until sure bleeding has stopped anemia--H and H stable at present, continue to follow. diverticulosiss--likely source of bleeding gastric polyp with stigmata of recent bleedin s/p clipping--not really adequate to explaine bleeding.
[2017-06-15 15:55] VITALS: BP 153/78; PULSE 55; TEMP 36.9; O2SAT 92
[2017-06-15 16:02] LABS: HEMATOCRIT 23.4 % (42-52); HEMOGLOBIN 7.9 g/dL (14.0-18.0); MEAN CELL VOLUME 91.4 fL (80-100); MEAN CORPUSCULAR HEMOGLOBIN 30.9 pg (25-34); MEAN CORPUSCULAR HGB CONC 33.8 g/dl (32-36); MEAN PLATELET VOLUME 9.3 fL (7.4-10.4); NUCLEATED RED BLOOD CELL ABS 0.03 K/uL (0-0); PLATELET COUNT 153 K/uL (130-400); RED CELL DISTRIBUTION WIDTH CV 15.5 % (11.5-14.5); RED CELL DISTRIBUTION WIDTH SD 51.4 fL (36.4-46.3); WHITE BLOOD COUNT 5.32 K/uL (4.8-10.8)
[2017-06-15] MEDS: OXYCODONE HCL IR 5 MG TAB (IMMEDIATE RELEASE) PO PRN ×2 (16:18→23:24)
[2017-06-15 16:25] LABS: CALCIUM 7.7 mg/dl (8.5-10.1); CREATININE 0.95 mg/dl (0.60-1.40); POTASSIUM 3.7 mmol/L (3.5-5.1)
[2017-06-15 19:58] VITALS: BP 138/72; PULSE 59; TEMP 37; O2SAT 91
[2017-06-15] MEDS: ISOSORBIDE MONONITRATE 60 MG TABCR PO SCH (20:44)
[2017-06-15] MEDS: ATORVASTATIN 40 MG TAB PO SCH (20:44)
--- NOTE | 2017-06-15 21:21 | Progress Note ---
Subjective Date of Service: Jun 15, 2017. Subjective Pt evaluation today including: conversation w/ patient, conversation w/ family , physical exam, chart review, lab review 82 yo male who is hospitalized for GI bleed. Patient reports that last evening he had one BM of blood which was small. Patient however is stating that he is feeling better. Patient is still concerned over his blood levels. Patient was questioning if he is going to be transferred to [place]. Patient denies any chest pain, nausea, vomiting. Problem List Medical Problems: (1) Anemia Status: Chronic (2) Cellulitis of left lower leg Status: Acute (3) Kyle catheter problem Status: Acute (4) Urinary retention Status: Acute (5) Urinary retention Status: Acute (6) Wound infection Status: Acute Review of Systems Constitutional: No fever, No chills Respiratory: No cough, No sputum Cardiac: No chest pain, No orthopnea Abdomen: + GI bleeding, No pain, No nausea Male : No dysuria, No urinary frequency Endo: + fatigue Skin: No rash, No itch All Other Systems: Reviewed and Negative Medications Current Inpatient Medications Medications (Trade) Dose Ordered Sig/Jez Route Start Time Stop Time Status Last Admin Dose Admin Sodium Chloride 1,000 ml @ 100 mls/hr Q10H IV 06/12/17 13:00 07/12/17 12:59 06/16/17 01:11 100 MLS/HR Acetaminophen (Tylenol Tab) 650 mg Q4H PRN PO 06/12/17 09:45 07/12/17 09:44 06/13/17 01:32 650 MG Ondansetron HCl (Zofran Inj) 4 mg Q6H PRN IV 06/12/17 09:45 07/12/17 09:44 Atorvastatin Calcium (Lipitor Tab) 40 mg HS PO 06/12/17 21:00 07/12/17 20:59 06/15/17 20:44 40 MG Oxycodone HCl (Roxicodone Immediate Rel Tab) 5 mg Q6H PRN PO 06/12/17 09:45 06/26/17 09:44 06/15/17 23:24 5 MG Miscellaneous Information (Order Awaiting Action) 1 ea QS N/A 06/12/17 16:00 07/12/17 15:59 Oxybutynin Chloride (Ditropan Tab) 2.5 mg TID PRN PO 06/12/17 09:45 07/12/17 09:44 Insulin Aspart (novoLOG ASPART) SLIDING SCALE If C... ACHS SC 06/12/17 16:30 06/14/18 11:59 06/16/17 08:20 6 UNITS Glucose (Glucose 40% Gel) 15-30 GRAMS 15 GRAMS... UD PRN PO 06/12/17 11:15 07/12/17 11:14 Glucose (Glucose Chew Tab) 4-8 Tablets 4 Tabl... UD PRN PO 06/12/17 11:15 07/12/17 11:14 Dextrose (Dextrose 50% 50ML Syringe) 25-50ML OF 50% DW IV FOR... UD PRN IV 06/12/17 11:15 07/12/17 11:14 Glucagon (Glucagon Inj) 1 mg UD PRN SQ 06/12/17 11:15 07/12/17 11:14 Pantoprazole Sodium 40 mg/ Syringe 10 ml @ 5 mls/min BID@0900,2100 IV 06/12/17 21:00 07/12/17 20:59 06/16/17 08:25 5 MLS/MIN Ioversol (Optiray 320) 125 ml UD PRN IV 06/12/17 13:45 06/16/17 13:44 Lidocaine HCl (Xylocaine Jelly 2%) 5 ml ONE PRN EXT 06/12/17 15:00 07/12/17 14:59 Oxycodone HCl (Oxycontin Tab) 10 mg Q12 PO 06/12/17 18:15 06/26/17 18:14 06/16/17 08:09 10 MG Isosorbide Mononitrate (Imdur Ext Rel Tab) 180 mg HS PO 06/14/17 21:00 07/14/17 20:59 06/15/17 20:44 180 MG Atenolol (Tenormin Tab) 50 mg QAM PO 06/15/17 09:00 07/15/17 08:59 06/16/17 08:09 50 MG Nitroglycerin (Nitrostat Tab) 0.4 mg UD PRN UT 06/16/17 09:15 07/16/17 09:14 UNV Objective Vital Signs Date Time Temp Pulse Resp B/P (MAP) Pulse Ox O2 Delivery O2 Flow Rate FiO2 06/15/17 19:58 37.0 59 14 138/72 (94) 91 Room Air 06/15/17 16:15 Room Air 06/15/17 15:55 36.9 55 18 153/78 (103) 92 Room Air 06/15/17 12:30 Room Air 06/15/17 08:45 Room Air 06/15/17 08:29 36.6 59 18 162/81 (108) 93 Room Air 06/15/17 05:29 36.4 55 16 124/69 (87) 93 Room Air 06/15/17 04:00 Room Air 06/15/17 00:00 36.9 60 16 125/70 (88) 91 06/14/17 23:50 Room Air Physical Exam General Appearance: WD/WN, no apparent distress Neck: supple, no adenopathy Respiratory/Chest: chest non-tender, lungs clear, normal breath sounds Cardiovascular: regular rate, rhythm, no edema Abdomen: normal bowel sounds, non tender, soft Extremities: normal range of motion, non-tender Skin: normal color Lymphatic: no adenopathy Laboratory Results Last 24 Hours Test 06/14/17 22:12 06/15/17 05:29 06/15/17 07:54 06/15/17 12:12 Sodium Level 139 mmol/L Potassium Level 3.5 mmol/L Chloride Level 107 mmol/L Carbon Dioxide Level 27 mmol/L Anion Gap 6.0 mmol/L Blood Urea Nitrogen 16 mg/dl Creatinine 0.96 mg/dl Est Creatinine Clear Calc Drug Dose 78.2 ml/min Estimated GFR () 84.4 Estimated GFR (Non- 72.8 BUN/Creatinine Ratio 17.0 Random Glucose 166 mg/dl Calcium Level 7.9 mg/dl White Blood Count 5.97 K/uL Red Blood Count 2.62 M/uL Hemoglobin 7.9 g/dL Hematocrit 23.8 % Mean Corpuscular Volume 90.8 fL Mean Corpuscular Hemoglobin 30.2 pg Mean Corpuscular Hemoglobin Concent 33.2 g/dl Platelet Count 152 K/uL Mean Platelet Volume 9.6 fL Neutrophils (%) (Auto) 76.5 % Lymphocytes (%) (Auto) 8.9 % Monocytes (%) (Auto) 10.1 % Eosinophils (%) (Auto) 3.7 % Basophils (%) (Auto) 0.3 % Neutrophils # (Auto) 4.57 K/uL Lymphocytes # (Auto) 0.53 K/uL Monocytes # (Auto) 0.60 K/uL Eosinophils # (Auto) 0.22 K/uL Basophils # (Auto) 0.02 K/uL RDW Standard Deviation 51.9 fL RDW Coefficient of Variation 15.8 % Immature Granulocyte % (Auto) 0.5 % Immature Granulocyte # (Auto) 0.03 K/uL Red Blood Cell Morphology Unremarkable Bedside Glucose 153 mg/dl 155 mg/dl Test 06/15/17 12:22 06/15/17 15:42 06/15/17 16:30 06/15/17 20:22 Hemoglobin 8.3 g/dL 7.9 g/dL Hematocrit 24.6 % 23.4 % White Blood Count 5.32 K/uL Red Blood Count 2.56 M/uL Mean Corpuscular Volume 91.4 fL Mean Corpuscular Hemoglobin 30.9 pg Mean Corpuscular Hemoglobin Concent 33.8 g/dl RDW Standard Deviation 51.4 fL RDW Coefficient of Variation 15.5 % Platelet Count 153 K/uL Mean Platelet Volume 9.3 fL Nucleated RBC Absolute Count (auto) 0.03 K/uL Nucleated Red Blood Cells % 0.5 % Sodium Level 140 mmol/L Potassium Level 3.7 mmol/L Chloride Level 108 mmol/L Carbon Dioxide Level 26 mmol/L Anion Gap 7.0 mmol/L Blood Urea Nitrogen 15 mg/dl Creatinine 0.95 mg/dl Est Creatinine Clear Calc Drug Dose 79.3 ml/min Estimated GFR () 85.5 Estimated GFR (Non- 73.7 BUN/Creatinine Ratio 16.1 Random Glucose 115 mg/dl Calcium Level 7.7 mg/dl Bedside Glucose 122 mg/dl 139 mg/dl Assessment and Plan Mr. Hallman is an 82 yo M was recently discharged from urology service on 06/10 after five days of amphotericin B bladder instillation for Jodi Glabrata UTI. He has a past medical history of CAD s/p [place] and CABG, GERD, HTN, HLD, adenocarcinoma s/p TURP and radiation, BPH, DMII, lymphedema bilateral lower extremities now presenting with a GI bleed which appears to be lower GI with BRBPR. Pt is slightly hypotensive and receiving fluid resuscitation. GI Bleed Acute blood loss anemia - Patient did have a small BM with blood. This may be perhaps residual blood. His hemoglobin has been stable however. -During his hospital stay his has required 5 PRBCs but has not required it today. -Tagged red cell study was complete and was negative. -Will continue to monitor his H and H -Unsure of benefit of transferring patient for Interventional radiologuy procedures as his Tag RBC was negative and does not appear to be bleeding actively. - protonix IV BID - Continue IVFs at 100mL/hr - BP remains stable at this time despite acute bleed Hematuria - Resolved at this time - Pt recently treated for fungal uti - Consult urology since he was recently discharged from their service and now with clot- possible that this is residual from bladder kyle irrigation, or residual cystitis since being on plavix. - Appreciate recommendations. - Plan for formal cystoscopy in [address] Martinez Fungal UTI - completed 5 days of amphotericin B bladder instillations on 06/10 - Urology consult as above Hx Prostate Cancer - s/p TURP and XRT. Recently stopped Casodex. CAD sp CBG x 4 vessels in 1994 Diastolic CHF HTN HLD - Restarted BB, and Imdur. DMII - HOLD Actos and glimepride - ISS, bsg ac&hs GERD - continue protonix as above Lymphedema - patient usually has his underwear trimmer who has been trained by a lymphedema specialist wrap his left leg but he feels he will be ok without it for his time in the hospital - keep extremity elevated when resting - No teds or scds at this time - Consider wound consultation for leg wrapping saturday Chronic Left Hip Bursitis - pt follows with Aime Rendon PA-C and last received corticosteroid injections ~3 weeks ago. - Continue Oxy IR as scheduled. Pt can not afford oxycontin ER as an outpatient so would not recommend that here in hospital. DVT ppx: no chemical anticoagulation at this time due to GI bleed CODE STATUS: FULL CODE Disposition: From home, lives with , unknown when discharge date as awaiting to increase diet.
[2017-06-16] VITALS (12 sets, daily range): BP systolic 130–155; BP diastolic 66–89; PULSE 55–101; TEMP 36.3–37.2; O2SAT 86–96
[2017-06-16] MEDS: SODIUM CHLORIDE 0.9% 1000ML 1,000 ML IV SCH ×2 (01:11→11:29)
[2017-06-16 06:32] LABS: BASO % 0.3 %; BASO ABS # 0.02 K/uL (0-0.2); EOS % 3.6 %; EOS ABS # 0.21 K/uL (0-0.5); HEMOGLOBIN 7.4 g/dL (14.0-18.0); IG# 0.03 K/uL (0.00-0.02); LYMPH % 9.7 %; LYMPH ABS # 0.57 K/uL (1.2-3.4); MEAN CELL VOLUME 92.7 fL (80-100); MEAN CORPUSCULAR HEMOGLOBIN 29.8 pg (25-34); MEAN CORPUSCULAR HGB CONC 32.2 g/dl (32-36); MEAN PLATELET VOLUME 9.5 fL (7.4-10.4); MONO % 8.9 %; MONO ABS # 0.52 K/uL (0.11-0.59); PLATELET COUNT 157 K/uL (130-400); RED CELL DISTRIBUTION WIDTH CV 15.4 % (11.5-14.5); RED CELL DISTRIBUTION WIDTH SD 51.9 fL (36.4-46.3); WHITE BLOOD COUNT 5.85 K/uL (4.8-10.8)
[2017-06-16 07:09] LABS: ALBUMIN 2.4 gm/dl (3.4-5.0); CALCIUM 7.9 mg/dl (8.5-10.1); CREATININE 0.84 mg/dl (0.60-1.40); POTASSIUM 3.5 mmol/L (3.5-5.1)
[2017-06-16 07:12] LABS: TOTAL PROTEIN 5.2 gm/dl (6.4-8.2)
[2017-06-16] MEDS: OXYCODONE HCL 10 MG TABCR (OXYCONTIN) PO SCH ×2 (08:09→21:27)
[2017-06-16] MEDS: INSULIN ASPART 100 UNITS/ML 3 ML PEN SC SCH ×4 (08:20→21:00)
[2017-06-16] MEDS: PANTOprazole INJ 40 MG in SYRINGE 0 ML IV SCH ×2 (08:25→21:27)
[2017-06-16] MEDS: NITROGLYCERIN 0.4 MG SL PER TAB CHARGE UT PRN (09:20)
--- NOTE | 2017-06-16 13:17 | CARDIOLOGY PROGRESS NOTE ---
DATE: 06/16/2017 SUBJECTIVE: Mr. Hallman is resting comfortably in bed. Did have an episode of angina pectoris earlier this morning. He was mostly upset over the deteriorating status of his roommate. OBJECTIVE: VITAL SIGNS: Blood pressure 136/60 with a regular pulse of 60. Respiratory rate is 18. The patient is afebrile at 36.5 degrees Celsius. Saturations 95% on 2 liters nasal cannula. NECK: Supple with full carotid upstrokes. There are no obvious bruits. Jugular venous pressure is difficult to assess. CARDIOVASCULAR: Reveals a regular rhythm with normal S1 and S2. Heart sounds are distant. No S3 or S4. LUNGS: Clear without rales, rhonchi, or wheezes. ABDOMEN: Soft without bruits. EXTREMITIES: Reveal intact radial artery pulses bilaterally. Bilateral lower extremity edema is noted. DATA: CBC notes a hemoglobin of 7.4, hematocrit 23.0, white count 5.8, platelet count 157,000. Electrolytes note a sodium of 141, potassium 3.5, chloride 108, bicarb 26, BUN 12, creatinine 0.84, and glucose 152. EKG notes sinus rhythm with a left axis deviation and a complete right bundle branch block. IMPRESSION AND PLAN: 1. Elevated troponin - likely secondary to his profound anemia and active GI bleeding in the face of his known inoperable coronary artery disease, will continue with medical management. 2. Coronary artery disease - status post coronary artery bypass graft x4 in 1994. He was again studied at the [facility] and noted to have all grafts obstructed. Medical management was recommended at that time. 3. Chronic stable angina pectoris. 4. Diastolic congestive heart failure - compensated. 5. Hypertension - controlled. 6. Hypercholesterolemia - continue statin. 7. Gastrointestinal bleed - workup in progress.
--- NOTE | 2017-06-16 13:36 | Gastroenterology Progress Note ---
Progress Note Date of Service: Jun 16, 2017 Subjective Pt evaluation today including: conversation w/ patient, conversation w/ family (), physical exam, chart review, lab review, review of studies, review of inpatient medication list CC f/u GI bleeding HPI Pts last stool was yesterday afternoon old blood but Hgb dropped this am. No abd pain. Review of Systems Respiratory: No shortness of breath Cardiac: + chest pain (angina earlier today resolved) Medications Current Inpatient Medications Medications (Trade) Dose Ordered Sig/Jez Route Start Time Stop Time Status Last Admin Dose Admin Sodium Chloride 1,000 ml @ 100 mls/hr Q10H IV 06/12/17 13:00 07/12/17 12:59 06/16/17 11:29 100 MLS/HR Acetaminophen (Tylenol Tab) 650 mg Q4H PRN PO 06/12/17 09:45 07/12/17 09:44 06/13/17 01:32 650 MG Ondansetron HCl (Zofran Inj) 4 mg Q6H PRN IV 06/12/17 09:45 07/12/17 09:44 Atorvastatin Calcium (Lipitor Tab) 40 mg HS PO 06/12/17 21:00 07/12/17 20:59 06/15/17 20:44 40 MG Oxycodone HCl (Roxicodone Immediate Rel Tab) 5 mg Q6H PRN PO 06/12/17 09:45 06/26/17 09:44 06/15/17 23:24 5 MG Miscellaneous Information (Order Awaiting Action) 1 ea QS N/A 06/12/17 16:00 07/12/17 15:59 Oxybutynin Chloride (Ditropan Tab) 2.5 mg TID PRN PO 06/12/17 09:45 07/12/17 09:44 Insulin Aspart (novoLOG ASPART) SLIDING SCALE If C... ACHS SC 06/12/17 16:30 06/14/18 11:59 06/16/17 11:57 8 UNITS Glucose (Glucose 40% Gel) 15-30 GRAMS 15 GRAMS... UD PRN PO 06/12/17 11:15 07/12/17 11:14 Glucose (Glucose Chew Tab) 4-8 Tablets 4 Tabl... UD PRN PO 06/12/17 11:15 07/12/17 11:14 Dextrose (Dextrose 50% 50ML Syringe) 25-50ML OF 50% DW IV FOR... UD PRN IV 06/12/17 11:15 07/12/17 11:14 Glucagon (Glucagon Inj) 1 mg UD PRN SQ 06/12/17 11:15 07/12/17 11:14 Pantoprazole Sodium 40 mg/ Syringe 10 ml @ 5 mls/min BID@0900,2100 IV 06/12/17 21:00 07/12/17 20:59 06/16/17 08:25 5 MLS/MIN Ioversol (Optiray 320) 125 ml UD PRN IV 06/12/17 13:45 06/16/17 13:44 Lidocaine HCl (Xylocaine Jelly 2%) 5 ml ONE PRN EXT 06/12/17 15:00 07/12/17 14:59 Oxycodone HCl (Oxycontin Tab) 10 mg Q12 PO 06/12/17 18:15 06/26/17 18:14 06/16/17 08:09 10 MG Isosorbide Mononitrate (Imdur Ext Rel Tab) 180 mg HS PO 06/14/17 21:00 07/14/17 20:59 06/15/17 20:44 180 MG Atenolol (Tenormin Tab) 50 mg QAM PO 06/15/17 09:00 07/15/17 08:59 06/16/17 08:09 50 MG Nitroglycerin (Nitrostat Tab) 0.4 mg Q5M PRN UT 06/16/17 09:15 07/16/17 09:14 06/16/17 09:20 0.4 MG Objective Vital Signs Date Time Temp Pulse Resp B/P (MAP) Pulse Ox O2 Delivery O2 Flow Rate FiO2 06/16/17 13:16 36.8 67 20 140/89 92 06/16/17 12:45 36.3 62 18 149/70 06/16/17 12:30 36.5 61 18 136/68 06/16/17 12:11 37.0 57 18 147/67 06/16/17 08:30 Room Air 06/16/17 07:31 37.2 63 20 133/75 (94) 95 Nasal Cannula 2.0 06/16/17 07:25 95 Room Air 06/16/17 05:34 37.0 101 20 155/73 (100) 96 2.0 06/16/17 04:45 86 Room Air 06/16/17 04:00 Room Air 06/16/17 00:15 36.7 61 20 130/72 (91) 92 Room Air 06/16/17 00:00 Room Air 06/15/17 20:00 Room Air 06/15/17 19:58 37.0 59 14 138/72 (94) 91 Room Air 06/15/17 16:15 Room Air 06/15/17 15:55 36.9 55 18 153/78 (103) 92 Room Air Physical Exam General Appearance: WD/WN, no apparent distress Respiratory/Chest: normal breath sounds, no respiratory distress Cardiovascular: no murmur Abdomen: normal bowel sounds, non tender, soft, no organomegaly Neurologic/Psych: normal mood/affect, oriented x 3 Skin: normal color Laboratory Results Last 24 Hours Test 06/15/17 15:42 06/15/17 16:30 06/15/17 20:22 06/16/17 05:35 White Blood Count 5.32 K/uL 5.85 K/uL Red Blood Count 2.56 M/uL 2.48 M/uL Hemoglobin 7.9 g/dL 7.4 g/dL Hematocrit 23.4 % 23.0 % Mean Corpuscular Volume 91.4 fL 92.7 fL Mean Corpuscular Hemoglobin 30.9 pg 29.8 pg Mean Corpuscular Hemoglobin Concent 33.8 g/dl 32.2 g/dl RDW Standard Deviation 51.4 fL 51.9 fL RDW Coefficient of Variation 15.5 % 15.4 % Platelet Count 153 K/uL 157 K/uL Mean Platelet Volume 9.3 fL 9.5 fL Nucleated RBC Absolute Count (auto) 0.03 K/uL Nucleated Red Blood Cells % 0.5 % Sodium Level 140 mmol/L 141 mmol/L Potassium Level 3.7 mmol/L 3.5 mmol/L Chloride Level 108 mmol/L 108 mmol/L Carbon Dioxide Level 26 mmol/L 26 mmol/L Anion Gap 7.0 mmol/L 7.0 mmol/L Blood Urea Nitrogen 15 mg/dl 12 mg/dl Creatinine 0.95 mg/dl 0.84 mg/dl Est Creatinine Clear Calc Drug Dose 79.3 ml/min 89.8 ml/min Estimated GFR () 85.5 93.8 Estimated GFR (Non- 73.7 81.0 BUN/Creatinine Ratio 16.1 13.8 Random Glucose 115 mg/dl 128 mg/dl Calcium Level 7.7 mg/dl 7.9 mg/dl Bedside Glucose 122 mg/dl 139 mg/dl Neutrophils (%) (Auto) 77.0 % Lymphocytes (%) (Auto) 9.7 % Monocytes (%) (Auto) 8.9 % Eosinophils (%) (Auto) 3.6 % Basophils (%) (Auto) 0.3 % Neutrophils # (Auto) 4.50 K/uL Lymphocytes # (Auto) 0.57 K/uL Monocytes # (Auto) 0.52 K/uL Eosinophils # (Auto) 0.21 K/uL Basophils # (Auto) 0.02 K/uL Immature Granulocyte % (Auto) 0.5 % Immature Granulocyte # (Auto) 0.03 K/uL Red Blood Cell Morphology Unremarkable Magnesium Level 1.6 mg/dl Total Bilirubin 1.1 mg/dl Aspartate Amino Transf (AST/SGOT) 24 U/L Alanine Aminotransferase (ALT/SGPT) 20 U/L Alkaline Phosphatase 58 U/L Total Protein 5.2 gm/dl Albumin 2.4 gm/dl Globulin 2.8 gm/dl Albumin/Globulin Ratio 0.9 Test 06/16/17 07:40 06/16/17 11:35 Bedside Glucose 152 mg/dl 205 mg/dl Assessment and Plan GI bleeding--no further stools but Hgb did drop. Advance to full liquid diet but hold another day. anemia--H and H drop today and transfusion in progress. diverticulosiss--likely source of bleeding gastric polyp with stigmata of recent bleedin s/p clipping--not really adequate to explaine bleeding.
--- NOTE | 2017-06-16 15:51 | Progress Note ---
Subjective Date of Service: Jun 16, 2017. Subjective Pt evaluation today including: conversation w/ patient, physical exam, lab review, review of studies Was called in AM to see patient as he had anginal pain. Patient reports he had a rough night as he roommate (other patient) was found unresponsive and had about "12 people checking on him". Patient denies any diaphoresis nausea, vomiting, bowel movements today. After nitro was given, patient reported no symptoms and symptoms did not return. Problem List Medical Problems: (1) Anemia Status: Chronic (2) Cellulitis of left lower leg Status: Acute (3) Kyle catheter problem Status: Acute (4) Urinary retention Status: Acute (5) Urinary retention Status: Acute (6) Wound infection Status: Acute Review of Systems Constitutional: No fever, No chills ENT: No unusual epistaxis Respiratory: No cough, No sputum Cardiac: No chest pain, No orthopnea Abdomen: No pain Neurologic: No memory loss, No paralysis Endo: No fatigue Skin: No rash, No itch All Other Systems: Reviewed and Negative Medications Current Inpatient Medications Medications (Trade) Dose Ordered Sig/Jez Route Start Time Stop Time Status Last Admin Dose Admin Acetaminophen (Tylenol Tab) 650 mg Q4H PRN PO 06/12/17 09:45 07/12/17 09:44 06/13/17 01:32 650 MG Ondansetron HCl (Zofran Inj) 4 mg Q6H PRN IV 06/12/17 09:45 07/12/17 09:44 Atorvastatin Calcium (Lipitor Tab) 40 mg HS PO 06/12/17 21:00 07/12/17 20:59 06/16/17 21:28 40 MG Oxycodone HCl (Roxicodone Immediate Rel Tab) 5 mg Q6H PRN PO 06/12/17 09:45 06/26/17 09:44 06/17/17 06:19 5 MG Miscellaneous Information (Order Awaiting Action) 1 ea QS N/A 06/12/17 16:00 07/12/17 15:59 Oxybutynin Chloride (Ditropan Tab) 2.5 mg TID PRN PO 06/12/17 09:45 07/12/17 09:44 Insulin Aspart (novoLOG ASPART) SLIDING SCALE If C... ACHS SC 06/12/17 16:30 06/14/18 11:59 06/16/17 17:15 9 UNITS Glucose (Glucose 40% Gel) 15-30 GRAMS 15 GRAMS... UD PRN PO 06/12/17 11:15 07/12/17 11:14 Glucose (Glucose Chew Tab) 4-8 Tablets 4 Tabl... UD PRN PO 06/12/17 11:15 07/12/17 11:14 Dextrose (Dextrose 50% 50ML Syringe) 25-50ML OF 50% DW IV FOR... UD PRN IV 06/12/17 11:15 07/12/17 11:14 Glucagon (Glucagon Inj) 1 mg UD PRN SQ 06/12/17 11:15 07/12/17 11:14 Pantoprazole Sodium 40 mg/ Syringe 10 ml @ 5 mls/min BID@0900,2100 IV 06/12/17 21:00 07/12/17 20:59 06/16/17 21:27 5 MLS/MIN Lidocaine HCl (Xylocaine Jelly 2%) 5 ml ONE PRN EXT 06/12/17 15:00 07/12/17 14:59 Oxycodone HCl (Oxycontin Tab) 10 mg Q12 PO 06/12/17 18:15 06/26/17 18:14 06/16/17 21:27 10 MG Isosorbide Mononitrate (Imdur Ext Rel Tab) 180 mg HS PO 06/14/17 21:00 07/14/17 20:59 06/16/17 21:28 180 MG Atenolol (Tenormin Tab) 50 mg QAM PO 06/15/17 09:00 07/15/17 08:59 06/16/17 08:09 50 MG Nitroglycerin (Nitrostat Tab) 0.4 mg Q5M PRN UT 06/16/17 09:15 07/16/17 09:14 06/16/17 09:20 0.4 MG Objective Vital Signs Date Time Temp Pulse Resp B/P (MAP) Pulse Ox O2 Delivery O2 Flow Rate FiO2 06/16/17 14:10 37.0 55 18 145/66 93 06/16/17 13:16 36.8 67 20 140/89 92 06/16/17 12:45 36.3 62 18 149/70 06/16/17 12:30 Room Air 06/16/17 12:30 36.5 61 18 136/68 06/16/17 12:11 37.0 57 18 147/67 06/16/17 08:30 Room Air 06/16/17 07:31 37.2 63 20 133/75 (94) 95 Nasal Cannula 2.0 06/16/17 07:25 95 Room Air 06/16/17 05:34 37.0 101 20 155/73 (100) 96 2.0 06/16/17 04:45 86 Room Air 06/16/17 04:00 Room Air 06/16/17 00:15 36.7 61 20 130/72 (91) 92 Room Air 06/16/17 00:00 Room Air 06/15/17 20:00 Room Air 06/15/17 19:58 37.0 59 14 138/72 (94) 91 Room Air 06/15/17 16:15 Room Air 06/15/17 15:55 36.9 55 18 153/78 (103) 92 Room Air Physical Exam Comments: General Appearance: WD/WN, + mild distress, + obese, + pertinent finding more pink pallor Head: normocephalic, atraumatic Eyes: PERRL, EOMI ENT: hearing grossly normal, pharynx normal, + pertinent finding (MMM) Neck: supple, no JVD Respiratory/Chest: lungs clear, no respiratory distress, no accessory muscle use Cardiovascular: regular rate, rhythm, no murmur, normal peripheral pulses Abdomen/GI: normal bowel sounds, no tenderness, no Murpheys sign or rebound tenderness, Back: normal inspection, no muscle spasm Extremities/Musculoskeletal: no calf tenderness, + pedal edema (2+ nonpitting edema BLE, worse in LLE ) Neurologic/Psych: alert, normal mood/affect, oriented x 3 Skin: warm/dry, Laboratory Results Last 24 Hours Test 06/15/17 16:30 06/15/17 20:22 06/16/17 05:35 06/16/17 07:40 Bedside Glucose 122 mg/dl 139 mg/dl 152 mg/dl White Blood Count 5.85 K/uL Red Blood Count 2.48 M/uL Hemoglobin 7.4 g/dL Hematocrit 23.0 % Mean Corpuscular Volume 92.7 fL Mean Corpuscular Hemoglobin 29.8 pg Mean Corpuscular Hemoglobin Concent 32.2 g/dl Platelet Count 157 K/uL Mean Platelet Volume 9.5 fL Neutrophils (%) (Auto) 77.0 % Lymphocytes (%) (Auto) 9.7 % Monocytes (%) (Auto) 8.9 % Eosinophils (%) (Auto) 3.6 % Basophils (%) (Auto) 0.3 % Neutrophils # (Auto) 4.50 K/uL Lymphocytes # (Auto) 0.57 K/uL Monocytes # (Auto) 0.52 K/uL Eosinophils # (Auto) 0.21 K/uL Basophils # (Auto) 0.02 K/uL RDW Standard Deviation 51.9 fL RDW Coefficient of Variation 15.4 % Immature Granulocyte % (Auto) 0.5 % Immature Granulocyte # (Auto) 0.03 K/uL Red Blood Cell Morphology Unremarkable Sodium Level 141 mmol/L Potassium Level 3.5 mmol/L Chloride Level 108 mmol/L Carbon Dioxide Level 26 mmol/L Anion Gap 7.0 mmol/L Blood Urea Nitrogen 12 mg/dl Creatinine 0.84 mg/dl Est Creatinine Clear Calc Drug Dose 89.8 ml/min Estimated GFR () 93.8 Estimated GFR (Non- 81.0 BUN/Creatinine Ratio 13.8 Random Glucose 128 mg/dl Calcium Level 7.9 mg/dl Magnesium Level 1.6 mg/dl Total Bilirubin 1.1 mg/dl Aspartate Amino Transf (AST/SGOT) 24 U/L Alanine Aminotransferase (ALT/SGPT) 20 U/L Alkaline Phosphatase 58 U/L Total Protein 5.2 gm/dl Albumin 2.4 gm/dl Globulin 2.8 gm/dl Albumin/Globulin Ratio 0.9 Test 06/16/17 11:35 Bedside Glucose 205 mg/dl Assessment and Plan Mr. Hallman is an 82 yo M was recently discharged from urology service on 06/10 after five days of amphotericin B bladder instillation for Jodi Glabrata UTI. He has a past medical history of CAD s/p [place] and CABG, GERD, HTN, HLD, adenocarcinoma s/p TURP and radiation, BPH, DMII, lymphedema bilateral lower extremities now presenting withlower GI bleed likely from diverticulosis GI Bleed Acute blood loss anemia - Patient did not have any significant BM in past 24 hourse His hemoglobin has been stable however and above 7 However, given his angina, will transfuse 1 PRBC I also stopped iVF and gave patient lasix 40 mg today due to edema and postive ( Is and Os) -During his hospital stay his has required 6 PRBCs but only 1 in past 36 hours. -Tagged red cell study was complete and was negative. -Will continue to monitor his H and H -Unsure of benefit of transferring patient for Interventional radiologuy procedures as his Tag RBC was negative and does not appear to be bleeding actively. - protonix IV BID - BP remains stable at this time despite acute bleed currently on clear liquid diet. Hematuria - Resolved at this time - Pt recently treated for fungal uti - Consult urology since he was recently discharged from their service and now with clot- possible that this is residual from bladder kyle irrigation, or residual cystitis since being on plavix. - Appreciate recommendations. - Plan for formal cystoscopy in [address] Martinez Fungal UTI - completed 5 days of amphotericin B bladder instillations on 06/10 - Urology consult as above Hx Prostate Cancer - s/p TURP and XRT. Recently stopped Casodex. CAD sp CBG x 4 vessels in 1994 Diastolic CHF HTN HLD - Restarted BB, and Imdur. DMII - HOLD Actos and glimepride - ISS, bsg ac&hs GERD - continue protonix as above Lymphedema - patient usually has his case manager specialist who has been trained by a lymphedema specialist wrap his left leg but he feels he will be ok without it for his time in the hospital - keep extremity elevated when resting - No teds or scds at this time - Consider wound consultation for leg wrapping saturday IVF stopped and Lasix given Chronic Left Hip Bursitis - pt follows with Aime Rendon PA-C and last received corticosteroid injections ~3 weeks ago. - Continue Oxy IR as scheduled. Pt can not afford oxycontin ER as an outpatient so would not recommend that here in hospital. DVT ppx: no chemical anticoagulation at this time due to GI bleed CODE STATUS: FULL CODE Disposition: From home, lives with , unknown when discharge date Awaiting h and h to stabilize. if bleeding returns, may consider transfer to [facility] or repeat colonoscopy. but at this point, no benefit to transfer as patient is no longer actively bleeding.
[2017-06-16 16:22] LABS: HEMATOCRIT 26.8 % (42-52); HEMOGLOBIN 8.9 g/dL (14.0-18.0)
[2017-06-16] MEDS ORDERED: FUROSEMIDE INJ 40 MG in SYRINGE 0 ML IV ONE (17:00)
[2017-06-16] MEDS: OXYCODONE HCL IR 5 MG TAB (IMMEDIATE RELEASE) PO PRN ×2 (17:35→23:38)
[2017-06-16] MEDS: ATORVASTATIN 40 MG TAB PO SCH (21:28)
[2017-06-16] MEDS: ISOSORBIDE MONONITRATE 60 MG TABCR PO SCH (21:28)
[2017-06-17] VITALS (9 sets, daily range): BP systolic 120–157; BP diastolic 61–95; PULSE 62–80; TEMP 36.7–37; O2SAT 91–94
[2017-06-17] MEDS: OXYCODONE HCL IR 5 MG TAB (IMMEDIATE RELEASE) PO PRN ×3 (06:19→22:45)
[2017-06-17 06:55] LABS: BASO % 0.5 %; BASO ABS # 0.03 K/uL (0-0.2); EOS % 3.8 %; EOS ABS # 0.21 K/uL (0-0.5); HEMATOCRIT 26.8 % (42-52); HEMOGLOBIN 8.8 g/dL (14.0-18.0); IG# 0.02 K/uL (0.00-0.02); LYMPH % 11.7 %; LYMPH ABS # 0.65 K/uL (1.2-3.4); MEAN CELL VOLUME 93.1 fL (80-100); MEAN CORPUSCULAR HEMOGLOBIN 30.6 pg (25-34); MEAN CORPUSCULAR HGB CONC 32.8 g/dl (32-36); MEAN PLATELET VOLUME 9.2 fL (7.4-10.4); MONO ABS # 0.61 K/uL (0.11-0.59); NEUT % 72.6 %; NEUT ABS # 4.04 K/uL (1.4-6.5); PLATELET COUNT 164 K/uL (130-400); RED CELL DISTRIBUTION WIDTH CV 15.2 % (11.5-14.5); RED CELL DISTRIBUTION WIDTH SD 50.2 fL (36.4-46.3); WHITE BLOOD COUNT 5.56 K/uL (4.8-10.8)
[2017-06-17 07:28] LABS: CALCIUM 8.1 mg/dl (8.5-10.1); CREATININE 0.95 mg/dl (0.60-1.40); POTASSIUM 3.3 mmol/L (3.5-5.1)
[2017-06-17] MEDS: PANTOprazole INJ 40 MG in SYRINGE 0 ML IV SCH ×2 (07:47→20:33)
[2017-06-17] MEDS: INSULIN ASPART 100 UNITS/ML 3 ML PEN SC SCH ×4 (07:51→20:35)
[2017-06-17] MEDS: OXYCODONE HCL 10 MG TABCR (OXYCONTIN) PO SCH ×2 (07:51→20:33)
--- NOTE | 2017-06-17 10:06 | CARDIOLOGY PROGRESS NOTE ---
DATE: 06/17/2017 SUBJECTIVE: Mr. Hallman is resting comfortably in bed without complaints of chest pain or dyspnea. He tolerated blood transfusion yesterday without difficulty. OBJECTIVE: VITAL SIGNS: Blood pressure is 157/95 with a regular pulse of 65. Respiratory rate is 20. The patient is afebrile at 36.7 degrees Celsius. Saturation is 92% on room air. NECK: Supple with full carotid upstrokes. No carotid bruits. Jugular venous pressure is flat at 90 degrees. There is no thyromegaly. CARDIOVASCULAR: Reveals a regular rhythm with normal S1 and S2. Heart sounds are distant. No obvious murmurs. LUNGS: Clear without rales, rhonchi, or wheezes. ABDOMEN: Obese without bruits. EXTREMITIES: Reveal intact radial artery pulses bilaterally. Lower extremity lymphedema again noted. LABORATORY DATA: CBC notes a hemoglobin of 8.8, hematocrit 26.8, white count 5.5, and platelet count 164,000. Electrolytes note a sodium of 142, potassium 3.3, chloride 105, bicarbonate 29, BUN 9, creatinine 0.95, and glucose 139. IMPRESSION AND PLAN: 1. Elevated troponin -- secondary to his profound anemia and active GI bleed in the face of his known inoperable coronary artery disease. Continue medical management. 2. Coronary artery disease -- status post CABG x4 in 1994. He was studied in the [facility] and noted to have all of his bypass grafts obstructed. Medical management recommended at that time. 3. Chronic stable angina pectoris -- continue medical management. 4. Diastolic congestive heart failure -- compensated at this time. 5. Hypertension -- controlled. 6. Hypercholesterolemia -- continue statin. 7. Gastrointestinal bleed -- workup in progress. Received blood transfusion yesterday.
--- NOTE | 2017-06-17 13:08 | Progress Note ---
Subjective Date of Service: Jun 17, 2017. Subjective Pt evaluation today including: conversation w/ patient, physical exam, chart review, lab review, review of inpatient medication list feeling ok no further bleeding no bm today no further cp no sob Problem List Medical Problems: (1) Anemia Status: Chronic (2) Cellulitis of left lower leg Status: Acute (3) Kyle catheter problem Status: Acute (4) Urinary retention Status: Acute (5) Urinary retention Status: Acute (6) Wound infection Status: Acute Review of Systems all other ROS otherwise negative except for as above Objective Vital Signs Date Time Temp Pulse Resp B/P (MAP) Pulse Ox O2 Delivery O2 Flow Rate FiO2 06/17/17 12:09 Room Air 06/17/17 11:53 36.9 80 20 147/73 (97) 92 Room Air 06/17/17 08:05 36.7 65 20 157/95 (115) 92 Room Air 06/17/17 08:00 Room Air 06/17/17 04:19 36.9 62 20 127/72 (90) 94 Room Air 06/17/17 04:00 Room Air 06/17/17 00:16 36.9 63 20 135/61 (85) 92 Room Air 06/17/17 00:00 Room Air 06/16/17 21:28 64 06/16/17 20:24 36.4 56 20 146/72 (96) 93 Room Air 06/16/17 20:00 Room Air 06/16/17 16:30 Room Air 06/16/17 14:10 37.0 55 18 145/66 93 06/16/17 13:16 36.8 67 20 140/89 92 Physical Exam General Appearance: no apparent distress Eyes: EOMI ENT: hearing grossly normal Neck: trachea midline Respiratory/Chest: no respiratory distress, no accessory muscle use Neurologic/Psychiatric: naturopath II-XII nml as tested, alert, normal mood/affect Skin: normal color, warm/dry Laboratory Results Last 24 Hours Test 06/16/17 16:08 06/16/17 16:45 06/16/17 20:32 06/17/17 06:30 Hemoglobin 8.9 g/dL 8.8 g/dL Hematocrit 26.8 % 26.8 % Bedside Glucose 168 mg/dl 139 mg/dl White Blood Count 5.56 K/uL Red Blood Count 2.88 M/uL Mean Corpuscular Volume 93.1 fL Mean Corpuscular Hemoglobin 30.6 pg Mean Corpuscular Hemoglobin Concent 32.8 g/dl Platelet Count 164 K/uL Mean Platelet Volume 9.2 fL Neutrophils (%) (Auto) 72.6 % Lymphocytes (%) (Auto) 11.7 % Monocytes (%) (Auto) 11.0 % Eosinophils (%) (Auto) 3.8 % Basophils (%) (Auto) 0.5 % Neutrophils # (Auto) 4.04 K/uL Lymphocytes # (Auto) 0.65 K/uL Monocytes # (Auto) 0.61 K/uL Eosinophils # (Auto) 0.21 K/uL Basophils # (Auto) 0.03 K/uL RDW Standard Deviation 50.2 fL RDW Coefficient of Variation 15.2 % Immature Granulocyte % (Auto) 0.4 % Immature Granulocyte # (Auto) 0.02 K/uL Red Blood Cell Morphology Unremarkable Sodium Level 142 mmol/L Potassium Level 3.3 mmol/L Chloride Level 105 mmol/L Carbon Dioxide Level 29 mmol/L Anion Gap 8.0 mmol/L Blood Urea Nitrogen 9 mg/dl Creatinine 0.95 mg/dl Est Creatinine Clear Calc Drug Dose 79.5 ml/min Estimated GFR () 85.5 Estimated GFR (Non- 73.7 BUN/Creatinine Ratio 9.3 Random Glucose 139 mg/dl Calcium Level 8.1 mg/dl Test 06/17/17 11:57 Bedside Glucose 191 mg/dl Assessment and Plan Mr. Hallman is an 82 yo M was recently discharged from urology service on 06/10 after five days of amphotericin B bladder instillation for Jodi Glabrata UTI. He has a past medical history of CAD s/p [place] and CABG, GERD, HTN, HLD, adenocarcinoma s/p TURP and radiation, BPH, DMII, lymphedema bilateral lower extremities now presenting with lower GI bleed likely from diverticulosis GI Bleed with Acute blood loss anemia -no further evidence of bleeding, appearing stable -During his hospital stay his has required 6 PRBCs but now has been stable -Tagged red cell study was complete and was negative. -Will continue to monitor his H and H, monitor clinically -if rebleeds will have to consider repeat tagged red cell scan vs transfer to tertiary (with heart disease would be hesitant to have surgery eval unless absolutely necessary) -continue to hold asa/plavix -increase diet, hopefully home tomorrow if still stable Hematuria - Resolved at this time - Pt recently treated for fungal uti - Consulted urology since he was recently discharged from their service and now with clot- possible that this is residual from bladder kyle irrigation, or residual cystitis since being on plavix. - Appreciate recommendations. - Plan for formal cystoscopy in [address] Martinez Fungal UTI - completed 5 days of amphotericin B bladder instillations on 06/10 - Urology consulted as above Hx Prostate Cancer - s/p TURP and XRT. Recently stopped Casodex. CAD sp CBG x 4 vessels in 1994 Diastolic CHF HTN HLD - Restarted BB, and Imdur. DMII - HOLDing Actos and glimepride - ISS, bsg ac&hs - sugars have been reasonable GERD - continue protonix as above Lymphedema -home treatment regimen Chronic Left Hip Bursitis - pt follows with Aime Rendon PA-C and last received corticosteroid injections ~3 weeks ago. - Continue Oxy IR as scheduled. Pt can not afford oxycontin ER as an outpatient so would not recommend that here in hospital. DVT ppx: no chemical anticoagulation at this time due to GI bleed CODE STATUS: FULL CODE increase activity, hopefully home tomorrow
[2017-06-17] MEDS ORDERED: POTASSIUM CHLORIDE 10 MEQ TABCR PO ONE (13:15)
--- NOTE | 2017-06-17 13:58 | GASTROENTEROLOGY PROGRESS NOTE ---
DATE: 06/17/2017 SUBJECTIVE: Chart reviewed, patient examined. Mr. Hallman is doing well today. He had passed flatus and a small amount of stool, which was nonbloody. He had a small amount of bloody stools yesterday. His transfusion requirements are stable and received a total of 6 units of packed blood cells, 1 on June 12, 2 on June 13, 2 on June 14, and 1 on June 16 yesterday. Today, hemoglobin is 8.8, which is overall stable. White count 5.5, platelet 164,000. BUN and creatinine are 9 and 0.95, potassium slightly low at 3.3. INR 1.1. REVIEW OF SYSTEMS: Otherwise noncontributory based on 13-point exam except for mentioned above. The patient is hungry and has been tolerating liquids well and soon will be having a solid meal for lunch. PHYSICAL EXAMINATION: VITAL SIGNS: The patient is afebrile at 36.9, blood pressure 147/73, respirations 20, heart rate 80, 92% on room air. GENERAL: The patient is awake, alert and oriented x3. HEENT: Sclerae are anicteric. Conjunctivae moist. Oral mucosa moist. HEART: Normal S1, S2. LUNGS: Clear to auscultation without rales, rhonchi or wheezes. ABDOMEN: Soft, nontender, nondistended with good bowel sounds. EXTREMITIES: Without clubbing, cyanosis or edema. RECTAL: Deferred. IMPRESSION AND PLAN: No clear ongoing bleeding identified, passage of stools over the weekend may have reflected old blood in the stool. The patient has had no further bleeding. At some point, an outpatient video small bowel capsule may be helpful to exclude this is a source; however, on colonoscopy late last week, there was no evidence for blood from the small bowel with intubation of the terminal ileum during colonoscopy. I suspect these are diverticular bleeding events. If, however, this persists, then evaluation by surgery and/or transfer to a referral center for interventional radiology to see if an area can be identified and embolized, would be helpful. Prior to this, a tagged red cell scan may be helpful to help locate the location of the bleeding, which is suspected in the colon. All questions answered.
[2017-06-17] MEDS: ISOSORBIDE MONONITRATE 60 MG TABCR PO SCH (20:33)
[2017-06-17] MEDS: ATORVASTATIN 40 MG TAB PO SCH (20:33)
[2017-06-18 03:29] VITALS: BP 117/69; PULSE 69; TEMP 36.9; O2SAT 90
[2017-06-18 06:54] LABS: BASO % 0.5 %; BASO ABS # 0.03 K/uL (0-0.2); EOS ABS # 0.23 K/uL (0-0.5); HEMATOCRIT 27.4 % (42-52); IG# 0.03 K/uL (0.00-0.02); LYMPH % 11.5 %; LYMPH ABS # 0.67 K/uL (1.2-3.4); MEAN CELL VOLUME 93.8 fL (80-100); MEAN CORPUSCULAR HEMOGLOBIN 30.8 pg (25-34); MEAN CORPUSCULAR HGB CONC 32.8 g/dl (32-36); MEAN PLATELET VOLUME 9.1 fL (7.4-10.4); MONO % 9.3 %; MONO ABS # 0.54 K/uL (0.11-0.59); NEUT % 74.2 %; NEUT ABS # 4.32 K/uL (1.4-6.5); NUCLEATED RED BLOOD CELL ABS 0.03 K/uL (0-0); PLATELET COUNT 174 K/uL (130-400); RED CELL DISTRIBUTION WIDTH CV 15.2 % (11.5-14.5); RED CELL DISTRIBUTION WIDTH SD 50.6 fL (36.4-46.3); WHITE BLOOD COUNT 5.82 K/uL (4.8-10.8)
[2017-06-18 07:13] VITALS: BP 148/83; PULSE 66; TEMP 36.7; O2SAT 90
[2017-06-18] MEDS: NITROGLYCERIN 0.4 MG SL PER TAB CHARGE UT PRN (08:02)
[2017-06-18] MEDS: OXYCODONE HCL 10 MG TABCR (OXYCONTIN) PO SCH (08:03)
[2017-06-18] MEDS: PANTOprazole INJ 40 MG in SYRINGE 0 ML IV SCH (08:03)
[2017-06-18] MEDS: INSULIN ASPART 100 UNITS/ML 3 ML PEN SC SCH ×2 (08:09→11:00)
--- NOTE | 2017-06-18 09:24 | Gastroenterology Progress Note ---
Progress Note Date of Service: Jun 18, 2017 Subjective Pt evaluation today including: conversation w/ patient, physical exam, chart review, lab review, review of studies cc f/u GI bleeding HPI Pt tolerated solid diet yesterday. No abd pain. No bloody stools. Review of Systems Respiratory: No shortness of breath Cardiac: + chest pain (does tell cardiology about it) Medications Current Inpatient Medications Medications (Trade) Dose Ordered Sig/Jez Route Start Time Stop Time Status Last Admin Dose Admin Acetaminophen (Tylenol Tab) 650 mg Q4H PRN PO 06/12/17 09:45 07/12/17 09:44 06/13/17 01:32 650 MG Ondansetron HCl (Zofran Inj) 4 mg Q6H PRN IV 06/12/17 09:45 07/12/17 09:44 Atorvastatin Calcium (Lipitor Tab) 40 mg HS PO 06/12/17 21:00 07/12/17 20:59 06/17/17 20:33 40 MG Oxycodone HCl (Roxicodone Immediate Rel Tab) 5 mg Q6H PRN PO 06/12/17 09:45 06/26/17 09:44 06/17/17 22:45 5 MG Miscellaneous Information (Order Awaiting Action) 1 ea QS N/A 06/12/17 16:00 07/12/17 15:59 Oxybutynin Chloride (Ditropan Tab) 2.5 mg TID PRN PO 06/12/17 09:45 07/12/17 09:44 Insulin Aspart (novoLOG ASPART) SLIDING SCALE If C... ACHS SC 06/12/17 16:30 06/14/18 11:59 06/18/17 08:09 6 UNITS Glucose (Glucose 40% Gel) 15-30 GRAMS 15 GRAMS... UD PRN PO 06/12/17 11:15 07/12/17 11:14 Glucose (Glucose Chew Tab) 4-8 Tablets 4 Tabl... UD PRN PO 06/12/17 11:15 07/12/17 11:14 Dextrose (Dextrose 50% 50ML Syringe) 25-50ML OF 50% DW IV FOR... UD PRN IV 06/12/17 11:15 07/12/17 11:14 Glucagon (Glucagon Inj) 1 mg UD PRN SQ 06/12/17 11:15 07/12/17 11:14 Pantoprazole Sodium 40 mg/ Syringe 10 ml @ 5 mls/min BID@0900,2100 IV 06/12/17 21:00 07/12/17 20:59 06/18/17 08:03 5 MLS/MIN Lidocaine HCl (Xylocaine Jelly 2%) 5 ml ONE PRN EXT 06/12/17 15:00 07/12/17 14:59 Oxycodone HCl (Oxycontin Tab) 10 mg Q12 PO 06/12/17 18:15 06/26/17 18:14 06/18/17 08:03 10 MG Isosorbide Mononitrate (Imdur Ext Rel Tab) 180 mg HS PO 06/14/17 21:00 07/14/17 20:59 06/17/17 20:33 180 MG Atenolol (Tenormin Tab) 50 mg QAM PO 06/15/17 09:00 07/15/17 08:59 06/18/17 08:03 50 MG Nitroglycerin (Nitrostat Tab) 0.4 mg Q5M PRN UT 06/16/17 09:15 07/16/17 09:14 06/18/17 08:02 0.4 MG Objective Vital Signs Date Time Temp Pulse Resp B/P (MAP) Pulse Ox O2 Delivery O2 Flow Rate FiO2 06/18/17 07:13 36.7 66 22 148/83 (104) 90 Room Air 06/18/17 04:00 Room Air 06/18/17 03:29 36.9 69 18 117/69 (85) 90 Room Air 06/18/17 00:00 Room Air 06/17/17 23:53 37.0 71 20 120/75 (90) 91 Room Air 06/17/17 20:00 91 Room Air 06/17/17 19:32 36.9 66 20 135/80 (98) 91 Room Air 06/17/17 15:35 91 Room Air 06/17/17 15:27 36.8 62 22 128/73 (91) 91 Room Air 06/17/17 12:09 Room Air 06/17/17 11:53 36.9 80 20 147/73 (97) 92 Room Air Physical Exam General Appearance: WD/WN, no apparent distress Respiratory/Chest: lungs clear, no respiratory distress Abdomen: normal bowel sounds, non tender, soft, no organomegaly Skin: warm/dry Laboratory Results Last 24 Hours Test 06/17/17 11:57 06/17/17 16:31 06/17/17 20:25 06/18/17 06:27 Bedside Glucose 191 mg/dl 216 mg/dl 189 mg/dl White Blood Count 5.82 K/uL Red Blood Count 2.92 M/uL Hemoglobin 9.0 g/dL Hematocrit 27.4 % Mean Corpuscular Volume 93.8 fL Mean Corpuscular Hemoglobin 30.8 pg Mean Corpuscular Hemoglobin Concent 32.8 g/dl Platelet Count 174 K/uL Mean Platelet Volume 9.1 fL Neutrophils (%) (Auto) 74.2 % Lymphocytes (%) (Auto) 11.5 % Monocytes (%) (Auto) 9.3 % Eosinophils (%) (Auto) 4.0 % Basophils (%) (Auto) 0.5 % Neutrophils # (Auto) 4.32 K/uL Lymphocytes # (Auto) 0.67 K/uL Monocytes # (Auto) 0.54 K/uL Eosinophils # (Auto) 0.23 K/uL Basophils # (Auto) 0.03 K/uL RDW Standard Deviation 50.6 fL RDW Coefficient of Variation 15.2 % Immature Granulocyte % (Auto) 0.5 % Immature Granulocyte # (Auto) 0.03 K/uL Nucleated RBC Absolute Count (auto) 0.03 K/uL Nucleated Red Blood Cells % 0.6 % Prostate Specific Antigen 1.030 ng/ml Test 06/18/17 07:38 Bedside Glucose 170 mg/dl Assessment and Plan GI bleeding--resolved, no further GI recommendations. likely diverticular. Will sign off. anemia--H and H stable.. diverticulosiss--likely source of bleeding gastric polyp with stigmata of recent bleedin s/p clipping--not really adequate to explaine bleeding.
[2017-06-18 09:59] VITALS: BP 148/83; PULSE 66; TEMP 36.7; O2SAT 90
--- NOTE | 2017-06-18 10:16 | Cardiology Follow-Up ---
Subjective Date of Service: Jun 18, 2017. Pt evaluation today including: conversation w/ patient, physical exam, chart review, lab review, review of studies, review of inpatient medication list, conversation w/ attending History of Present Illness Mr. Hallman is currently feeling well. He is to be discharged today. He did have one episode of angina this morning around 8 am while eating breakfast. He had his usual central chest tightness which resolved within 5 minutes of taking nitroglycerin. He has not had any further episodes of chest discomfort. Yesterday he participated in physical therapy without exertional chest pain. He denies dyspnea, orthopnea, PND, palpitations, lightheadedness, presyncope or syncope. He has stable lower extremity edema. He has not had any further evidence of GI bleeding including melena or hematochezia. The remainder of his review of systems is unremarkable. Social History Smoking Status: Unknown if Ever Smoked History of Alcohol Use: No Review of Systems Respiratory: No shortness of breath Cardiac: + chest pain Objective Vital Signs Past 12 Hours Date Time Temp Pulse Resp B/P (MAP) Pulse Ox O2 Delivery O2 Flow Rate FiO2 06/18/17 08:20 Room Air 06/18/17 07:13 36.7 66 22 148/83 (104) 90 Room Air 06/18/17 04:00 Room Air 06/18/17 03:29 36.9 69 18 117/69 (85) 90 Room Air 06/18/17 00:00 Room Air 06/17/17 23:53 37.0 71 20 120/75 (90) 91 Room Air Last Recorded Weight-Kilograms: 133.400 Physical Exam General: Alert and oriented. No acute distress. HEENT: Head is normal. PERRLA. Sclera anicteric. Ears, nose and throat unremarkable. Neck: No JVD or carotid bruit. Cardiac: Distant heart sounds. Regular rate and rhythm. S1 and S2 normal. No appreciable murmur, gallop or rub. Lungs: Clear to auscultation bilaterally without rales, rhonchi or wheezing. Abdomen: Soft and nontender. Bowel sounds present. No abdominal bruit. Extremities: Lymphedema bilaterally. No cyanosis. Neuro: No lateralizing changes. Skin: No rash. Normal turgor. Data Laboratory Results: Last 24 Hours Test 06/17/17 11:57 06/17/17 16:31 06/17/17 20:25 06/18/17 06:27 Bedside Glucose 191 mg/dl 216 mg/dl 189 mg/dl White Blood Count 5.82 K/uL Red Blood Count 2.92 M/uL Hemoglobin 9.0 g/dL Hematocrit 27.4 % Mean Corpuscular Volume 93.8 fL Mean Corpuscular Hemoglobin 30.8 pg Mean Corpuscular Hemoglobin Concent 32.8 g/dl Platelet Count 174 K/uL Mean Platelet Volume 9.1 fL Neutrophils (%) (Auto) 74.2 % Lymphocytes (%) (Auto) 11.5 % Monocytes (%) (Auto) 9.3 % Eosinophils (%) (Auto) 4.0 % Basophils (%) (Auto) 0.5 % Neutrophils # (Auto) 4.32 K/uL Lymphocytes # (Auto) 0.67 K/uL Monocytes # (Auto) 0.54 K/uL Eosinophils # (Auto) 0.23 K/uL Basophils # (Auto) 0.03 K/uL RDW Standard Deviation 50.6 fL RDW Coefficient of Variation 15.2 % Immature Granulocyte % (Auto) 0.5 % Immature Granulocyte # (Auto) 0.03 K/uL Nucleated RBC Absolute Count (auto) 0.03 K/uL Nucleated Red Blood Cells % 0.6 % Prostate Specific Antigen 1.030 ng/ml Test 06/18/17 07:38 Bedside Glucose 170 mg/dl Assessment and Plan Discussed with Dr. Rose. 1. Elevated troponin: In the setting of gastrointestinal bleed and significant anemia. He has known inoperable coronary artery disease. Recommend continued medical management. 2. Coronary artery disease: Status post CABG x4 1994. Cath at [facility] noted all bypass grafts obstructed. Continue medical management. Resume antiplatelet therapy as soon as deemed safe from GI standpoint. 3. Chronic stable angina pectoris: Continue medical management with antianginals. 4. Chronic diastolic CHF: Appears well compensated. 5. Hypertension: Blood pressure controlled on current regimen. 6. Hyperlipidemia: Continue statin therapy. 7. Gastrointestinal bleed: [place] to be diverticular in nature. He received blood transfusion and hemoglobin is improving. No further indication of bleeding. He is stable for discharge from cardiology standpoint.
--- NOTE | 2017-06-18 10:17 | Discharge Instructions ---
Discharge Instructions Date of Service Jun 18, 2017. Admission Reason for Admission: Lower Gi Bleed Discharge Discharge Diagnosis / Problem: lower GI bleed - likely diverticular (see below) Discharge Goals Goal(s): Diagnostic testing, Therapeutic intervention Activity Recommendations Activity Limitations: resume your previous activity . Instructions / Follow-Up Instructions / Follow-Up GI bleeding -your blood loss was very likely from a diverticular bleed -diverticuli are little outpouchings off the side of the colon that we frequently form as we age. while usually asymptomatic, if they "erode" into a blood vessel they can cause bleeding exactly as what happened to you - a large bleed that then self-resolves. typically, while they can be recurrent, they're not often a frequently-occurring problem. if you were to re-bleed in short order (ie if it's impossible to get you back on your aspirin and plavix without re-bleeding) then we'd need to consider if a radiologist could find the culprit blood vessel and clot it off with a wire-type procedure - but fortunately this is not likely to be a necessary thing -for now we need to have you off of your aspirin and plavix, but will want to get you back on both as quickly as is safe. because we can almost always manage bleeding without life threatening consequences, but frequently cannot fix worsening heart attack type problems (especially with the severity of your coronaries) so it's overall more important to treat the heart disease and manage the bleeding if it were to occur. we'll have blood counts checked or Saturday this week - if your numbers are stable and you've seen no recurrence of bleeding, then we'd want to get you back on your aspirin. over the next week, if there's been no recurrence of bleeding and a repeat check of your blood counts NEXT or Saturday is stable, then we'd want to get you back on your plavix. -obviously if you're seeing recurrent bleeding we'll want you to get checked out right away -because of being off your aspirin and plavix may create more angina, it would not be surprising if you need to use your nitro a little more than previously for the next week. if you have angina, stop what you're doing and rest. if the angina doesn't go away with rest, then take a nitro, if the pain doesn't go away in five minutes then take a second nitro. if the pain doesn't go away five minutes after the second nitro, take a third. if the pain doesn't resolve with a third nitro, that would be where it's time to call 911. we'll be getting you set up with Dr Parmar's office, [facility] office, and Dr Rose' s office all in short order - because of the delicate balance between bleeding problems and your coronary disease, we'll have to have make sure everyone is keeping a close eye on your status as you recover. Current Hospital Diet Patient's current hospital diet: AHA Diet (Heart Healthy) Discharge Diet Recommended Diet: AHA Diet (Heart Healthy) Procedures Procedures Performed: EGD WITH CLIP, COLONOSCOPY Pending Studies Studies pending at discharge: no Laboratory Results Hemoglobin A1c Test 06/06/17 06:34 Range/Units Estimated Average Glucose 157 mg/dl Hemoglobin A1c 7.1 H 4.5-5.6 % Medical Emergencies . Who to Call and When: Medical Emergencies: If at any time you feel your situation is an emergency, please call 911 immediately. . Non-Emergent Contact Non-Emergency issues call your: Primary Care Provider, Coil Winder, [employer] Helper . . "Provider Documentation" section prepared by Maximiliano Lee. . VTE Core Measure Inpt VTE Proph given/why not?: Contraindicated
[2017-06-18] MEDS ORDERED: NITR0.4S UT (10:19)
[2017-06-18] MEDS: OXYCODONE HCL IR 5 MG TAB (IMMEDIATE RELEASE) PO PRN (12:27)
--- NOTE | 2017-06-18 17:58 | Discharge Summary ---
Discharge Summary Date of Service Jun 18, 2017. Discharge Summary Admission Date: Jun 12, 2017 at 09:49 Discharge Date: Jun 18, 2017 Discharge Disposition: Home with services Principal Diagnosis: acute blood loss anemia from (presumed) diverticular bleed Problems/Secondary Diagnoses: (1) Anemia Status: Chronic Immunizations: Have You Had Influenza Vaccine: No History of Tetanus Vaccine?: Unknown History of Pneumococcal: Yes Pneumococcal Date: Apr 26, 2004 History of Hepatitis B Vaccine: No Procedures: colo - blood throughout transverse with diverticuli although no obvious bleeding ones EGD - gastric polyps, one clipped for suspicion of bleeding but not enough to be culprit for blood loss noted Echo: Interpretation Summary * Name: ROBY HALLMAN Study Date: 06/15/2017 07:45 AM BP: 162/81 mmHg * Patient Location: [facility]\S\89\S\2 HR: 53 * : 1935 (M/d/yyyy) Gender: Male Height: 69 in * Age: 82 yrs Ethnicity: OR Weight: 288 lb * Ordering Physician: Bakari Maldonado * Referring Physician: Self, Referred * Performed By: Viji Guzman RDCS * * Reason For Study: AMI * BSA: 2.4 m2 * -- Conclusions -- * Compared with 11/25/12 study, probably no significant change. * The study was technically limited. * The left ventricle is grossly normal size. * There is normal left ventricular wall thickness. * Left ventricular systolic function is normal. * Ejection Fraction = 55-60%. * No regional wall motion abnormalities noted. * No obvious valvular lesions on technically limited Doppler. Procedure Details * A contrast injection of Definity was performed to improve assessment of LV function. * Contrast was injected into an intravenous site in the left arm. * One vial of Definity ultrasound contrast was diluted in normal saline to a total volume of 10 ml. A total of '2' ml of solution was administered during imaging. * Lot # [id number] of Definity utilized for procedure. * Expiration date 1 AUG 26. * The attending nurse who injected the contrast agent was RAMBO SANDOVAL RN. * The study was technically limited. Left Ventricle * The left ventricle is grossly normal size. * There is normal left ventricular wall thickness. * Left ventricular systolic function is normal. * Ejection Fraction = 55-60%. * No regional wall motion abnormalities noted. Right Ventricle * The right ventricle is grossly normal size. * The right ventricular systolic function is normal. Atria * The left atrium is mildly dilated. * Right atrial size is normal. * The interatrial septum is intact with no evidence for an atrial septal defect. Mitral Valve * The mitral valve is normal in structure and function. * Mild mitral regurgitation suggested by pulsed wave Doppler, not seen on color Doppler. Tricuspid Valve * The tricuspid valve is normal in structure and function. * Significant tricuspid regurgitation is absent. Aortic Valve * Aortic valve sclerosis mild, without significant aortic valvular stenosis. * There is no significant aortic regurgitation. Pulmonic Valve * The pulmonic valve is not well seen, but is grossly normal. * There is no significant pulmonary regurgitation. Great Vessels * The aortic root is normal size. * No obvious dissection could be visualized. * The pulmonary is not well visualized. Pericardium/Pleural * There is no pericardial effusion. Great Vessels * Normal inferior vena cava diameter and respiratory variation suggests normal central venous pressure. Last Resulted CBC 06/18/17 06:27 Red Blood Count 2.92, Mean Corpuscular Volume 93.8, Mean Corpuscular Hemoglobin 30.8, Mean Corpuscular Hemoglobin Concent 32.8, Mean Platelet Volume 9.1, Neutrophils (%) (Auto) 74.2, Lymphocytes (%) (Auto) 11.5, Monocytes (%) (Auto) 9.3, Eosinophils (%) (Auto) 4.0, Basophils (%) (Auto) 0.5, Neutrophils # (Auto) 4.32, Lymphocytes # (Auto) 0.67, Monocytes # (Auto) 0.54, Eosinophils # (Auto) 0.23, Basophils # (Auto) 0.03 Last Resulted BMP 06/17/17 06:30 Consultations: GI cardiology Medication Reconciliation Continued Medications: Alfuzosin Hcl (Uroxatral) 10 Mg Tab 10 MG PO QAM, TAB Atenolol (Atenolol) 50 Mg Tab 50 MG PO QAM Atorvastatin (Atorvastatin Calcium) 40 Mg Tab 40 MG PO HS Dutasteride (Avodart) 0.5 Mg Cap 0.5 MG PO QAM, CAP Esomeprazole Magnesium (Nexium) 40 Mg Capcr 40 MG PO QPM Glimepiride (Glimepiride) 2 Mg Tab 2 MG PO BID Lprqhpifujb-Yllllelkubj-Rlx C- (Glucosamine 1500 Complex) 1 Cap Cap 2 CAP PO DAILY Hydrochlorothiazide (Hydrochlorothiazide) 25 Mg Tab 25 MG PO QAM Isosorbide Mononitrate Ext Rel (Imdur Ext Rel) 120 Mg Ertab 180 MG PO QPM Losartan Potassium (Cozaar) 100 Mg Tab 100 MG PO QAM Metformin Hcl (Glucophage) 1,000 Mg Tab 1000 MG PO BID, TAB TAKE THIS MEDICATION WITH MORNING AND EVENING MEALS Metformin Hcl (Glucophage) 1,000 Mg Tab 500 MG PO WITH LUNCH, TAB TAKE HALF A TABLET (500 MG) DAILY WITH LUNCH Multivitamin (Multivitamin) Tab 1 TAB PO QAM Niacin (Niacin) 500 Mg Tab 1000 MG PO QPM Nitroglycerin (Nitrostat) 0.4 Mg Sub 0.4 MG UT UD PRN for Chest Pain, #30 TAB (This prescription has been renewed) Oxycodone HCl (Oxycodone HCl ER) 10 Mg Tab 10 MG PO BID Oxycodone Ir (Roxicodone Ir) 5 Mg Tab 5 MG PO Q6H PRN for Pain, TAB Potassium Chloride (Potassium Chloride Er) 10 Meq Tab 10 MEQ PO QAM Saw Roosevelt (Serenoa Repens) (Saw Roosevelt) 450 Mg Cap 450 MG PO QAM [Oxybutynin] () 2.5 MG PO TID PRN for PRN Discontinued Medications: Aspirin (Aspirin Ec) 81 Mg Tab 81 MG PO QAM Clopidogrel (Plavix) 75 Mg Tab 75 MG PO DAILY, TAB Discharge Exam Physical Exam: General Appearance: no apparent distress Eyes: EOMI ENT: hearing grossly normal Neck: trachea midline Respiratory/Chest: no respiratory distress, no accessory muscle use Extremities: normal inspection Neurologic/Psychiatric: disposition clerk II-XII nml as tested, alert, normal mood/affect Skin: normal color, warm/dry Hospital Course Mr. Hallman is an 82 yo M was recently discharged from urology service on 06/10 after five days of amphotericin B bladder instillation for Jodi Glabrata UTI. He has a past medical history of CAD s/p [place] and CABG, GERD, HTN, HLD, adenocarcinoma s/p TURP and radiation, BPH, DMII, lymphedema bilateral lower extremities now presenting with lower GI bleed likely from diverticulosis GI Bleed with Acute blood loss anemia -no further evidence of bleeding, appearing stable -During his hospital stay his has required 6 PRBCs but now has been stable -Tagged red cell study was complete and was negative. -appearing most likely from diverticular bleed both based on colo as well as behavior of bleeding (large, bright red, then self resolved) Hematuria - Resolved at this time - Pt recently treated for fungal uti - Consulted urology since he was recently discharged from their service and now with clot- possible that this is residual from bladder kyle irrigation, or residual cystitis since being on plavix. - Appreciate recommendations. - Plan for formal cystoscopy in [address] Martinez Fungal UTI - completed 5 days of amphotericin B bladder instillations on 06/10 - Urology consulted as above, outpt f/u as above Hx Prostate Cancer - s/p TURP and XRT. Recently stopped Casodex. CAD sp CBG x 4 vessels in 1994 with elevated troponin likely indicative of demand ischemia related to blood loss not NSTEMI Diastolic CHF HTN HLD -home meds, except holding asa and plavix for now - given the severity of his CAD we discussed frankly risk/benefits favors getting him back on both as soon as appears safe, despite the fact that he will have a degree of risk for rebleed --> CBC, clinical f/u end of this week and then hopefully can resume asa by the end of this week; repeat CBC and ongoing clinical f/u by the end of next week and hopefully can resume plavix by then. close f/u and low threshold for evaluation if suspicion of bleeding - he expresses understanding DMII - sugars reasonable, safe to go home on home meds DVT ppx: no chemical anticoagulation at this time due to GI bleed CODE STATUS: FULL CODE stable for home Total Time Spent: Greater than 30 minutes This includes examination of the patient, discharge planning, medication reconciliation, and communication with other providers. Discharge Instructions Please refer to the electronic Patient Visit Report (Discharge Instructions) for additional information. Additional Copies To Reji Rose M.D.; Kori Parmar D.O.; Brandon Garza M.D.
== END 2017-06-18 14:50 | disposition home health service (06) | DRG 378 ==
LOC: EDBD 08:11 → C.EDA 08:12 → C.MED 09:49 → ENRESERV 10:32
PROVIDERS: ADMIT Internal Medicine Sports Medicine; ATTEND Family Medicine
PROC: 0DJD8ZZ Inspection of Lower Intestinal Tract, Via Natural or Artificial Opening Endoscopic (ICD-10-PCS; principal; 2017-06-13 14:49)
DX: K92.2 Gastrointestinal hemorrhage, unspecified (principal); Z68.41 Body mass index [BMI] 40.0-44.9, adult; I50.30 Unspecified diastolic (congestive) heart failure; N39.0 Urinary tract infection, site not specified; I24.8 Other forms of acute ischemic heart disease; I25.10 Atherosclerotic heart disease of native coronary artery without angina pectoris; I25.2 Old myocardial infarction; Z95.1 Presence of aortocoronary bypass graft; K21.9 Gastro-esophageal reflux disease without esophagitis; E78.5 Hyperlipidemia, unspecified; Z85.46 Personal history of malignant neoplasm of prostate; N40.0 Benign prostatic hyperplasia without lower urinary tract symptoms; E11.9 Type 2 diabetes mellitus without complications; Z96.642 Presence of left artificial hip joint; Z96.659 Presence of unspecified artificial knee joint; Z87.891 Personal history of nicotine dependence; Z83.3 Family history of diabetes mellitus; Z80.42 Family history of malignant neoplasm of prostate; Z80.1 Family history of malignant neoplasm of trachea, bronchus and lung; Z82.49 Family history of ischemic heart disease and other diseases of the circulatory system; Z79.82 Long term (current) use of aspirin; Z79.02 Long term (current) use of antithrombotics/antiplatelets; E66.9 Obesity, unspecified

== ENCOUNTER → 2017-06-21 | Outpatient (CLI) | payer OTHER ==
[~2017-06-21] MED LIST changes: -ASPI81TA28 PO; -CLOP1TAB15 PO
[2017-06-21 10:30] LABS: BASO % 0.4 %; BASO ABS # 0.02 K/uL (0-0.2); COMPLETE YES; EOS % 2.5 %; HEMATOCRIT 27.3 % (42-52); IG% 0.2 %; LYMPH % 6.7 %; LYMPH ABS # 0.32 K/uL (1.2-3.4); MEAN CELL VOLUME 96.5 fL (80-100); MEAN CORPUSCULAR HEMOGLOBIN 31.8 pg (25-34); MEAN PLATELET VOLUME 9.7 fL (7.4-10.4); MONO % 7.6 %; NEUT % 82.6 %; PLATELET COUNT 242 K/uL (130-400); RED BLOOD COUNT 2.83 M/uL (4.7-6.1); WHITE BLOOD COUNT 4.76 K/uL (4.8-10.8)
== END | disposition home or self-care (01) ==
LOC: C.LABSPEC 10:21
PROVIDERS: ATTEND Urology
DX: K92.2 Gastrointestinal hemorrhage, unspecified (principal)

== ENCOUNTER → 2017-06-21 | Outpatient (CLI) | payer OTHER | END | disposition home or self-care (01) | LOC: C.LABSPEC 14:37 | PROVIDERS: ATTEND Urology | DX: N39.0 Urinary tract infection, site not specified (principal) ==

== ENCOUNTER → 2017-06-27 | Outpatient (CLI) | payer OTHER ==
[2017-06-27 12:18] LABS: BASO % 0.5 %; BASO ABS # 0.02 K/uL (0-0.2); COMPLETE YES; HEMATOCRIT 28.1 % (42-52); IG% 0.2 %; LYMPH % 11.2 %; LYMPH ABS # 0.49 K/uL (1.2-3.4); MEAN CELL VOLUME 95.6 fL (80-100); MEAN CORPUSCULAR HEMOGLOBIN 31.6 pg (25-34); MEAN CORPUSCULAR HGB CONC 33.1 g/dl (32-36); MEAN PLATELET VOLUME 9.7 fL (7.4-10.4); MONO % 7.8 %; NEUT % 77.3 %; PLATELET COUNT 289 K/uL (130-400); RED BLOOD COUNT 2.94 M/uL (4.7-6.1); WHITE BLOOD COUNT 4.37 K/uL (4.8-10.8)
== END | disposition home or self-care (01) ==
LOC: C.LABSPEC 12:04
PROVIDERS: ATTEND Urology
DX: K92.2 Gastrointestinal hemorrhage, unspecified (principal)

== ENCOUNTER → 2017-08-05 | Outpatient (CLI) | payer OTHER ==
[2017-08-05 13:21] LABS: BASO % 0.2 %; BASO ABS # 0.01 K/uL (0-0.2); EOS % 1.6 %; EOS ABS # 0.08 K/uL (0-0.5); HEMATOCRIT 26.5 % (42-52); HEMOGLOBIN 8.3 g/dL (14.0-18.0); IG# 0.01 K/uL (0.00-0.02); LYMPH % 8.9 %; LYMPH ABS # 0.45 K/uL (1.2-3.4); MEAN CELL VOLUME 91.4 fL (80-100); MEAN CORPUSCULAR HEMOGLOBIN 28.6 pg (25-34); MEAN CORPUSCULAR HGB CONC 31.3 g/dl (32-36); MONO % 6.5 %; MONO ABS # 0.33 K/uL (0.11-0.59); NEUT % 82.6 %; PLATELET COUNT 267 K/uL (130-400); RED CELL DISTRIBUTION WIDTH CV 14.6 % (11.5-14.5); RED CELL DISTRIBUTION WIDTH SD 48.6 fL (36.4-46.3); WHITE BLOOD COUNT 5.08 K/uL (4.8-10.8)
== END | disposition home or self-care (01) ==
LOC: C.LABBC 10:38
PROVIDERS: ATTEND Family Medicine
DX: D64.9 Anemia, unspecified (principal)

== ENCOUNTER 2017-08-23 12:11 | Inpatient (IN) | payer OTHER ==
[~2017-08-23] VITALS: Ht 175.3 cm; Wt 125.9 kg
[~2017-08-23 12:11] MED LIST changes: -ASPI81TA28 PO; -BUME1TAB PO; -CALC-51 PO; -CLOP1TAB15 PO; -FRRS300 PO; -IPRASOL4 INH; -MGNO400 PO; -OXGN; -SYMIN INH; -VLTG EXT
--- NOTE | 2017-08-23 13:28 | DIAGNOSTIC IMAGING REPORT ---
CHEST ONE VIEW PORTABLE CLINICAL HISTORY: sob dyspnea COMPARISON STUDY: 11/24/2016 FINDINGS: Moderate cardiomegaly. Prior median sternotomy. Increased prominence of the pulmonary vasculature. IMPRESSION: Mild congestive failure. The above report was generated using voice recognition software. It may contain grammatical, syntax or spelling errors. Electronically signed by: Garry Bell M.D. 08/23/2017 1:27 PM Dictated Date/Time: 08/23/2017 1:25 PM
--- NOTE | 2017-08-23 13:32 | EMERGENCY ROOM VISIT NOTE ---
History Report prepared by Rosalinda: Ash Woodard Under the Supervision of: Norma AdlerO. First contact with patient: 13:01 Chief Complaint: WEAKNESS Stated Complaint: GENERALIZED WEAKNESS History of Present Illness The patient is an 82 year old male who presents to the Emergency Room with complaints of persistent shortness of breath for the past week. The patient states that it is worse with exertion, and he states that he is unable to walk 20 feet at a time without being winded. He additionally states that his voice has been weaker, and he not been speaking properly. The patient's states that the patient looks more pale than usual. He states that in June he had a GI bleed and a bladder infection, and since then his hemoglobin has been low around 8.2. He was put on iron a month ago, and he has been having black stools since then. The patient notes that he has been urinating more frequently, and he has become incontinent. He denies any fever, chills, chest pain, dizziness, light headedness, and abdominal pain. The patient states that he is a former smoker, and he has a history of heart failure, CABG, and prostate cancer. He denies any lung problems. The patient's hemoglobin was 8.6 this morning Source of History: patient Onset: past week Position: other (global) Quality: other (shortness of breath) Timing: other (persistent) Associated Symptoms: No fevers, No chills, No chest pain, No abdominal pain Note: Associated symptoms: black stools and urinating more frequently Review of Systems See HPI for pertinent positives & negatives. A total of 10 systems reviewed and were otherwise negative. 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 (15) Left ventricular diastolic dysfunction (16) Lower GI bleed (17) Myocardial infarction (18) Obesity (19) Osteoarthritis (20) REFLUX ESOPHAGITIS (21) Urinary tract infection Family History Diabetes mellitus FH: prostate cancer FHx: colon cancer Hypertension Social History Smoking Status: Former Smoker Drug Use: none Marital Status: Housing Status: lives with family Occupation Status: retired Current/Historical Medications Scheduled Alfuzosin Hcl (Uroxatral), 10 MG PO QAM Aspirin (Aspirin Ec), 81 MG PO DAILY Atenolol (Atenolol), 50 MG PO QAM Atorvastatin (Lipitor), 40 MG PO HS Calcium Carbonate-Vitamin D (Calcium), 2 TAB PO DAILY Clopidogrel (Plavix), 75 MG PO DAILY Dutasteride (Avodart), 0.5 MG PO QAM Esomeprazole Magnesium (Nexium), 40 MG PO QPM Glimepiride (Glimepiride), 2 MG PO BID Hydrochlorothiazide (Hydrochlorothiazide), 25 MG PO QAM Isosorbide Mononitrate Ext Rel (Imdur Ext Rel), 180 MG PO QPM Losartan Potassium (Cozaar), 100 MG PO QAM Metformin Hcl (Glucophage), 1,000 MG PO BID Metformin Hcl (Glucophage), 500 MG PO WITH LUNCH Multivitamin (Multivitamin), 1 TAB PO QAM Niacin (Niacin), 2,000 MG PO QPM Oxycodone HCl (Oxycodone HCl ER), 10 MG PO BID Potassium Chloride (Potassium Chloride Er), 20 MEQ PO QAM Scheduled PRN Bumetanide (Bumex), 2 TAB PO DAILY PRN for edema Nitroglycerin (Nitrostat), 0.4 MG UT UD PRN for Chest Pain Oxycodone Ir (Roxicodone Ir), 5 MG PO Q6H PRN for Pain Allergies Coded Allergies: Adhesives (Verified Allergy, Unknown, DRAPES TORE PT'S SKIN OFF, 08/23/17) Bee Venom (Verified Allergy, Unknown, SWELLING, 08/23/17) Diclofenac (Verified Allergy, Unknown, 08/23/17) Naproxen (Verified Allergy, Unknown, 08/23/17) Amoxicillin (Verified Adverse Reaction, Unknown, CAUSES DIARRHEA, 08/23/17) Celecoxib (Verified Adverse Reaction, Unknown, gi bleed, 08/23/17) Physical Exam Vital Signs Date Time Temp Pulse Resp B/P (MAP) Pulse Ox O2 Delivery O2 Flow Rate FiO2 08/23/17 17:00 66 28 97 Nasal Cannula 2.0 08/23/17 16:53 74 08/23/17 16:30 62 22 96 Nasal Cannula 2.0 08/23/17 16:01 152/78 08/23/17 16:00 65 22 95 Nasal Cannula 2.0 08/23/17 15:31 149/81 08/23/17 15:30 70 24 96 Nasal Cannula 2.0 08/23/17 15:11 54 17 159/78 96 Nasal Cannula 2.0 08/23/17 13:30 55 20 162/84 98 Room Air 08/23/17 13:15 58 24 138/83 96 Nasal Cannula 2.0 08/23/17 12:54 75 08/23/17 12:12 37.0 65 26 123/66 89 Room Air 08/23/17 12:12 89 Room Air 08/23/17 12:12 95 Nasal Cannula 2.0 Physical Exam GENERAL: alert, pale appearing, well nourished, no distress, non-toxic EYE EXAM: normal conjunctiva, PERRL and EOM's grossly intact OROPHARYNX: no exudate, no erythema, lips, buccal mucosa, and tongue normal and mucous membranes are moist NECK: supple, no nuchal rigidity, no adenopathy, non-tender LUNGS: No wheezes rhonchi or rales. Oxygen saturations 95% on 2L nasal cannula. Normal chest wall mechanics HEART: no murmurs, S1 normal and S2 normal ABDOMEN: abdomen soft, non-tender, normo-active bowel sounds, no masses, no rebound or guarding. BACK: Back is symmetrical on inspection and there is no deformity, no midline tenderness, no CVA tenderness. SKIN: no rashes and no bruising UPPER EXTREMITIES: upper extremities are grossly normal. LOWER EXTREMITIES:Wrapped with stacey wrap. Chronic lymphedema noted NEURO EXAM: Normal sensorium, cranial nerves II-XII grossly intact, normal speech, no gross weakness of arms, no gross weakness of legs. Medical Decision & Procedures ER Provider Diagnostic Interpretation: Radiology results have been interpreted by the radiologist and reviewed by me. CHEST ONE VIEW PORTABLE CLINICAL HISTORY: sob dyspnea COMPARISON STUDY: 11/24/2016 FINDINGS: Moderate cardiomegaly. Prior median sternotomy. Increased prominence of the pulmonary vasculature. IMPRESSION: Mild congestive failure. The above report was generated using voice recognition software. It may contain grammatical, syntax or spelling errors. Electronically signed by: Garry Bell M.D. 08/23/2017 1:27 PM Dictated Date/Time: 08/23/2017 1:25 PM HEAD WITHOUT CONTRAST (CT) CLINICAL HISTORY: 82 years-old Male with slurred speech. Acute generalized weakness with strokelike symptoms TECHNIQUE: Multiple axial CT images of the head were obtained without contrast. A dose lowering technique was utilized adhering to the principles of ALARA. CT DOSE: 1754.09 mGy.cm COMPARISON: None. FINDINGS: No acute intracranial hemorrhage, midline shift, intracranial mass, hydrocephalus, territorial ischemia or abnormal extra-axial collection. Cerebral vascular calcifications are seen at the level of the skull base. There is tortuosity of the basilar artery. Mild to moderate brain atrophy. The calvarium is intact. The mastoid air cells, and middle ear cavities are clear. 1.6 cm area of polypoid mucosal thickening involves the left maxillary sinus. Soft tissues and orbits are unremarkable. IMPRESSION: No acute intracranial abnormality. The above report was generated using voice recognition software. It may contain grammatical, syntax or spelling errors. Electronically signed by: Marc Mercedes M.D. 08/23/2017 2:41 PM Dictated Date/Time: 08/23/2017 2:38 PM Laboratory Results Test 08/23/17 12:25 08/23/17 13:00 Prothrombin Time 11.1 SECONDS (9.0-12.0) Prothromb Time International Ratio 1.1 (0.9-1.1) Phosphorus Level 3.9 mg/dl (2.5-4.9) Total Bilirubin 0.6 mg/dl (0.2-1) Aspartate Amino Transf (AST/SGOT) 27 U/L (15-37) Alanine Aminotransferase (ALT/SGPT) 25 U/L (12-78) Alkaline Phosphatase 89 U/L (45-117) Pro-B-Type Natriuretic Peptide 6077 pg/ml (0-1800) Total Protein 7.5 gm/dl (6.4-8.2) Albumin 3.5 gm/dl (3.4-5.0) Globulin 4.0 gm/dl (2.5-4.0) Albumin/Globulin Ratio 0.9 (0.9-2) Urine Color YELLOW Urine Appearance CLEAR (CLEAR) Urine pH 6.5 (4.5-7.5) Urine Specific [place] 1.007 (1.000-1.030) Urine Protein NEG (NEG) Urine Glucose (UA) NEG (NEG) Urine Ketones NEG (NEG) Urine Occult Blood NEG (NEG) Urine Nitrite NEG (NEG) Urine Bilirubin NEG (NEG) Urine Urobilinogen NEG (NEG) Urine Leukocyte Esterase NEG (NEG) Laboratory results per my review. Medications Administered Medications (Trade) Dose Ordered Sig/Jez Route Start Time Stop Time Status Last Admin Dose Admin Oxycodone HCl (Roxicodone Immediate Rel Tab) 5 mg STK-MED ONCE .ROUTE 08/23/17 14:47 08/23/17 14:48 DC 08/23/17 14:47 5 MG Aspirin (Ecotrin Tab) 325 mg NOW STAT PO 08/23/17 14:52 08/23/17 14:54 DC 08/23/17 14:52 325 MG Furosemide (Lasix Inj) 40 mg NOW STAT IV 08/23/17 16:00 08/23/17 16:02 DC 08/23/17 16:00 40 MG Oxycodone HCl (Roxicodone Immediate Rel Tab) 5 mg Q6H PRN PO 08/23/17 17:00 09/06/17 16:59 08/24/17 14:18 5 MG ECG Per My Interpretation Indication: SOB/dyspnea Rate (beats per minute): 60 Rhythm: sinus rhythm Findings: 1st degree AV block, PVC, RBBB, no acute ischemic change, left axis deviation Comparison ECG Date: 06/16/17 Change: no significant change ED Course 1301: The patient was evaluated in room C1. A complete history and physical exam was performed. 1344: I reevaluated the patient, and his states that the patient has been having some slurred speech recently as well. 1445: Review of the patient's EMR from admission in June, the patient had an echo that showed EF of 55-60%. Upon reevaluation, the patient is doing well. I discussed the findings and the treatment plan with the patient. He expresses agreement and understanding. He will be evaluated for further management. 1447: Oxycodone HCl 5mg PO 1450: I reviewed the patient's case with Dr. Corbin - [facility] [place]. He will evaluate the patient for further management. 1452: Aspirin 325mg PO Medical Decision Differential diagnosis: Etiologies such as infections, reactive airway disease, pneumonia, pneumothorax , COPD, CHF, cardiac ischemia, pulmonary embolism, musculoskeletal, gastrointestinal, as well as others were entertained. Patient well-appearing here and no symptoms while at rest. Patient's first pulse ox was ambulatory as patient does not wear oxygen at home and had obvious increased work of breathing with any exertion. Likely component of acute on chronic congestive heart failure given elevated BNP and chest x-ray findings as well as description of dyspnea on exertion. I feel a troponin more likely secondary to congestive heart failure, doubt primary ACS. No evidence of acute infectious etiology. Anemia appears stable compared to prior labs. Patient placed on nasal cannula and holding sats in the low to mid 90s while here. Discussed all results with patient, he had verbalized understanding were agreeable with plan. Discussed with hospitalist for additional evaluation and treatment. Doubt any additional occult infectious etiology, doubt acute vascular pathology. Patient's prior GI bleed was lower and felt to be diverticular and resolved spontaneously. Patient given single aspirin due to elevated troponin and history of CAD as precaution. Medication Reconcilliation Current Medication List: was personally reviewed by me Blood Pressure Screening Patient's blood pressure: Elevated blood pressure Monitored by the hospitalist. Consults Time Called: 1445 Consulting Physician: Dr. Emerald STAUFFER Hospitalist Returned Call: 1450 I reviewed the patient's case with Dr. Emerald STAUFFER Hospitalist. He will evaluate the patient for further management. Impression Primary Impression: Dyspnea on exertion Additional Impressions: Elevated troponin Anemia Elevated brain natriuretic peptide (BNP) level Acute on chronic diastolic (congestive) heart failure Scribe Attestation The scribe's documentation has been prepared under my direction and personally reviewed by me in its entirety. I confirm that the note above accurately reflects all work, treatment, procedures, and medical decision making performed by me. Departure Information Dispostion Being Evaluated By Hospitalist Referrals Kori Parmar D.O. (PCP) Patient Instructions My [facility] Problem Qualifiers Additional Impressions: Anemia Anemia type: unspecified type Qualified Codes: D64.9 - Anemia, unspecified
[2017-08-23 13:34] LABS: INR 1.1 (0.9-1.1)
[2017-08-23 13:40] LABS: ALBUMIN 3.5 gm/dl (3.4-5.0); CALCIUM 9.1 mg/dl (8.5-10.1); CREATININE 1.18 mg/dl (0.60-1.40); POTASSIUM 4.3 mmol/L (3.5-5.1)
[2017-08-23] MEDS ORDERED: ASPI81TA28 PO (13:44)
[2017-08-23 13:46] LABS: PHOSPHORUS 3.9 mg/dl (2.5-4.9); TOTAL PROTEIN 7.5 gm/dl (6.4-8.2)
[2017-08-23] MEDS ORDERED: ALFU10TA2 PO (13:47)
[2017-08-23] MEDS ORDERED: NXM/40 PO (13:47)
[2017-08-23] MEDS ORDERED: CALC-51 PO (13:47)
[2017-08-23] MEDS ORDERED: CLOP1TAB15 PO (13:48)
--- NOTE | 2017-08-23 14:42 | DIAGNOSTIC IMAGING REPORT ---
HEAD WITHOUT CONTRAST (CT) CLINICAL HISTORY: 82 years-old Male with slurred speech. Acute generalized weakness with strokelike symptoms TECHNIQUE: Multiple axial CT images of the head were obtained without contrast. A dose lowering technique was utilized adhering to the principles of ALARA. CT DOSE: 1754.09 mGy.cm COMPARISON: None. FINDINGS: No acute intracranial hemorrhage, midline shift, intracranial mass, hydrocephalus, territorial ischemia or abnormal extra-axial collection. Cerebral vascular calcifications are seen at the level of the skull base. There is tortuosity of the basilar artery. Mild to moderate brain atrophy. The calvarium is intact. The mastoid air cells, and middle ear cavities are clear. 1.6 cm area of polypoid mucosal thickening involves the left maxillary sinus. Soft tissues and orbits are unremarkable. IMPRESSION: No acute intracranial abnormality. The above report was generated using voice recognition software. It may contain grammatical, syntax or spelling errors. Electronically signed by: Marc Mercedes M.D. 08/23/2017 2:41 PM Dictated Date/Time: 08/23/2017 2:38 PM
[2017-08-23] MEDS ORDERED: OXYCODONE HCL IR 5 MG TAB (IMMEDIATE RELEASE) ONE (14:47)
[2017-08-23] MEDS ORDERED: ASPIRIN 325 MG ECTAB PO STA (14:52)
[2017-08-23] MEDS ORDERED: FUROSEMIDE 40 MG/4 ML VIAL IV STA (16:00)
[2017-08-23] MEDS ORDERED: BUME1TAB PO (16:50)
[2017-08-23] MEDS ORDERED: DEXTROSE 50% 50 ML SYR IV PRN (17:00)
[2017-08-23] MEDS ORDERED: MAGNESIUM HYDROXIDE SUSP 30 ML UDC PO PRN (17:00)
[2017-08-23] MEDS ORDERED: GLUCAGON FOR INJ 1 MG VIAL SQ PRN (17:00)
[2017-08-23] MEDS ORDERED: NITROGLYCERIN 0.4 MG SL PER TAB CHARGE UT PRN (17:00)
[2017-08-23] MEDS ORDERED: GLUCOSE 40% GEL 15 GM TUBE PO PRN (17:00)
[2017-08-23] MEDS ORDERED: ONDANSETRON INJ 2 MG/ML 2 ML VIAL IV PRN (17:00)
[2017-08-23] MEDS ORDERED: ALUMINUM/MAGNESIUM/SIMETH (MAALOX MAX) 30 ML UDC PO PRN (17:00)
[2017-08-23] MEDS ORDERED: GLUCOSE 10 TABS/TUBE PO PRN (17:00)
[2017-08-23] MEDS ORDERED: POLYETHYLENE (MIRALAX) 17 GM PACK PO PRN (17:00)
--- NOTE | 2017-08-23 17:29 | History and Physical ---
History & Physical Date & Time of Service: Aug 23, 2017 at 17:10 Chief Complaint: Generalized Weakness Primary Care Physician: Kori Parmar D.O. History of Present Illness Source: patient, spouse, clinic records, hospital records This is a 82 y/o male with a history of HTN, HLD, chronic diastolic CHF, CAD, anemia, DM II, prostate cancer, BPH, and GERD who presented to the ED on 08/23 with worsening shortness of breath, dyspnea on exertion and weakness. The patient was admitted to the hospital in Jun 2017 with GI bleed, OK, and UTI. He states that since then, he has not been slowly declining. He is currently receiving home health and home PT services. In the last few days, he has become more acutely weak. He has had worsening shortness of breath, dyspnea on exertion, and wheezing. He has a cough at times that is non-productive. He states that over the last month he has been having more urinary incontinence, urgency and nocturia. The patient denies fevers, chills, sweats, chest pain, palpitations, claudication, nausea, vomiting, abdominal pain, dysuria, hematuria , urinary retention, paralysis, focal weakness, numbness and tingling. Past Medical/Surgical History Medical Problems: (1) Anemia Status: Chronic (2) Angina Status: Chronic (3) Benign hypertension Status: Chronic (4) Cellulitis Status: Chronic (5) Coronary artery bypass grafting Status: Resolved (6) Diabetes mellitus Status: Chronic (7) Hyperlipidemia Status: Chronic (8) Left ventricular diastolic dysfunction Status: Chronic (9) Myocardial infarction Status: Chronic (10) Obesity Status: Chronic (11) Osteoarthritis Status: Chronic (12) REFLUX ESOPHAGITIS Status: Chronic Prostate cancer BPH Family History Diabetes mellitus FH: prostate cancer FHx: colon cancer Hypertension Social History Smoking Status: Former Smoker (quit 1976) Smokeless Tobacco Use: No Alcohol Use: none Drug Use: none Marital Status: Housing status: lives with significant other Occupational Status: retired Immunizations History of Influenza Vaccine: No History of Tetanus Vaccine?: Unknown History of Pneumococcal: Yes Pneumococcal Date: Apr 26, 2004 History of Hepatitis B Vaccine: No Multi-Drug Resistant Organisms History of MDRO: No Allergies Coded Allergies: Adhesives (Verified Allergy, Unknown, CATARINA ARCEO PT'S SKIN OFF, 08/23/17) Bee Venom (Verified Allergy, Unknown, SWELLING, 08/23/17) Diclofenac (Verified Allergy, Unknown, 08/23/17) Naproxen (Verified Allergy, Unknown, 08/23/17) Amoxicillin (Verified Adverse Reaction, Unknown, CAUSES DIARRHEA, 08/23/17) Celecoxib (Verified Adverse Reaction, Unknown, gi bleed, 08/23/17) Home Medications Scheduled Alfuzosin Hcl (Uroxatral), 10 MG PO QAM Aspirin (Aspirin Ec), 81 MG PO DAILY Atenolol (Atenolol), 50 MG PO QAM Atorvastatin (Lipitor), 40 MG PO HS Calcium Carbonate-Vitamin D (Calcium), 2 TAB PO DAILY Clopidogrel (Plavix), 75 MG PO DAILY Dutasteride (Avodart), 0.5 MG PO QAM Esomeprazole Magnesium (Nexium), 40 MG PO QPM Glimepiride (Glimepiride), 2 MG PO BID Hydrochlorothiazide (Hydrochlorothiazide), 25 MG PO QAM Isosorbide Mononitrate Ext Rel (Imdur Ext Rel), 180 MG PO QPM Losartan Potassium (Cozaar), 100 MG PO QAM Metformin Hcl (Glucophage), 1,000 MG PO BID Metformin Hcl (Glucophage), 500 MG PO WITH LUNCH Multivitamin (Multivitamin), 1 TAB PO QAM Niacin (Niacin), 2,000 MG PO QPM Oxycodone HCl (Oxycodone HCl ER), 10 MG PO BID Potassium Chloride (Potassium Chloride Er), 20 MEQ PO QAM Scheduled PRN Bumetanide (Bumex), 2 TAB PO DAILY PRN for edema Nitroglycerin (Nitrostat), 0.4 MG UT UD PRN for Chest Pain Oxycodone Ir (Roxicodone Ir), 5 MG PO Q6H PRN for Pain Review of Systems Constitutional: +Weak. No fever, No chills, No sweats Eyes: No worsening of vision, No eye pain, No diplopia ENT: No hearing loss, No nasal symptoms, No trouble swallowing Respiratory: +Cough, SOB, RUBIO, wheezing. Cardiovascular: No chest pain, No claudication, No palpitations Abdomen: No pain, No nausea, No vomiting Musculoskeletal: +Chronic lower extremity swelling. No joint pain, No muscle pain Genitourinary - Male: +Increased urinary incontinence, urgency, nocturia. No dysuria, No urinary retention, No hematuria Neurologic: No paralysis, No weakness, No numbness/tingling Integumentary: No rash, No itch, No color change Physical Exam Vital Signs Date Time Temp Pulse Resp B/P (MAP) Pulse Ox O2 Delivery O2 Flow Rate FiO2 08/23/17 16:53 74 08/23/17 15:11 54 17 159/78 96 Nasal Cannula 2.0 08/23/17 13:30 55 20 162/84 98 Room Air 08/23/17 13:15 58 24 138/83 96 Nasal Cannula 2.0 08/23/17 12:54 75 08/23/17 12:12 37.0 65 26 123/66 89 Room Air 08/23/17 12:12 89 Room Air 08/23/17 12:12 95 Nasal Cannula 2.0 General appearance: Well-developed, well-nourished, no apparent distress Head: Normocephalic, atraumatic Eyes: Normal inspection, PERRL, EOMI ENT: Normal ENT inspection, hearing grossly normal, pharynx normal Neck: Supple, no JVD, trachea midline Respiratory/Chest: +Decreased breath sounds. Using abdomen to assist with breathing but does not appear to be in acute distress. Lungs clear to auscultation, no respiratory distress Cardiovascular: Regular rate & rhythm, no gallop, no murmur Abdomen/GI: Normal bowel sounds, non-tender, soft Extremities/Musculoskeletal: +Nonpitting edema. Normal inspection, no calf tenderness Neurological/Psych: Alert, normal mood/affect, oriented x 3 Skin: Normal color, warm/dry, no rash Diagnostics Laboratory Results Results Past 24 Hours Test 08/23/17 12:25 08/23/17 13:00 Range/Units Prothrombin Time 11.1 9.0-12.0 SECONDS Prothromb Time International Ratio 1.1 0.9-1.1 Sodium Level 136 136-145 mmol/L Potassium Level 4.3 3.5-5.1 mmol/L Chloride Level 98 98-107 mmol/L Carbon Dioxide Level 32 21-32 mmol/L Anion Gap 6.0 3-11 mmol/L Blood Urea Nitrogen 24 7-18 mg/dl Creatinine 1.18 0.60-1.40 mg/dl Est Creatinine Clear Calc Drug Dose 65.2 ml/min Estimated GFR () 65.7 Estimated GFR (Non- 56.7 BUN/Creatinine Ratio 20.3 10-20 Random Glucose 133 70-99 mg/dl Calcium Level 9.1 8.5-10.1 mg/dl Phosphorus Level 3.9 2.5-4.9 mg/dl Magnesium Level 1.6 1.8-2.4 mg/dl Total Bilirubin 0.6 0.2-1 mg/dl Aspartate Amino Transf (AST/SGOT) 27 15-37 U/L Alanine Aminotransferase (ALT/SGPT) 25 12-78 U/L Alkaline Phosphatase 89 45-117 U/L Troponin I 0.492 0-0.045 ng/ml Pro-B-Type Natriuretic Peptide 6077 0-1800 pg/ml Total Protein 7.5 6.4-8.2 gm/dl Albumin 3.5 3.4-5.0 gm/dl Globulin 4.0 2.5-4.0 gm/dl Albumin/Globulin Ratio 0.9 0.9-2 Urine Color YELLOW Urine Appearance CLEAR CLEAR Urine pH 6.5 4.5-7.5 Urine Specific [place] 1.007 1.000-1.030 Urine Protein NEG NEG Urine Glucose (UA) NEG NEG Urine Ketones NEG NEG Urine Occult Blood NEG NEG Urine Nitrite NEG NEG Urine Bilirubin NEG NEG Urine Urobilinogen NEG NEG Urine Leukocyte Esterase NEG NEG Diagnostic Radiology Reviewed the following studies and agree with interpretation as follows: CHEST ONE VIEW PORTABLE CLINICAL HISTORY: sob dyspnea COMPARISON STUDY: 11/24/2016 FINDINGS: Moderate cardiomegaly. Prior median sternotomy. Increased prominence of the pulmonary vasculature. IMPRESSION: Mild congestive failure. HEAD WITHOUT CONTRAST (CT) CLINICAL HISTORY: 82 years-old Male with slurred speech. Acute generalized weakness with strokelike symptoms TECHNIQUE: Multiple axial CT images of the head were obtained without contrast. A dose lowering technique was utilized adhering to the principles of ALARA. CT DOSE: 1754.09 mGy.cm COMPARISON: None. FINDINGS: No acute intracranial hemorrhage, midline shift, intracranial mass, hydrocephalus, territorial ischemia or abnormal extra-axial collection. Cerebral vascular calcifications are seen at the level of the skull base. There is tortuosity of the basilar artery. Mild to moderate brain atrophy. The calvarium is intact. The mastoid air cells, and middle ear cavities are clear. 1.6 cm area of polypoid mucosal thickening involves the left maxillary sinus. Soft tissues and orbits are unremarkable. IMPRESSION: No acute intracranial abnormality. EKG Reviewed EKG and agree with interpretation as follows: 60 bpm, SR w/ occasional PVC, RBBB, left anterior fascicular block Impression Assessment and Plan 82 y/o male with a history of HTN, HLD, chronic diastolic CHF, CAD, anemia, DM II, prostate cancer, BPH, and GERD who presented to the ED on 08/23 with worsening shortness of breath, dyspnea on exertion and weakness. Pt tachypneic and hypoxic on arrival, placed on 2L NC. He does not wear oxygen at home. Otherwise, VSS. CXR with mild congestive failure. EKG no ischemic changes. Hgb 8.6, stable since recent GI bleed. Troponin elevated but coming down from OK in June. BNP elevated. Acute on chronic diastolic heart failure--could be contributing to weakness -Admit to telemetry -Daily weights, strict I's & O's -Bumex 1 mg IV qd. Reportedly only takes Bumex at home 2x/week -Low sodium diet -Repeat echocardiogram -Consult cardiology, appreciate recs Weakness -PT/OT evaluate and treat, case management consulted Slurred speech? Per some intermittent slurred speech last few days. None noted on my exam -Head CT negative in ED -Check echo w/bubble study -Carotid doppler ultrasound Hypomagnesemia -Magnesium 1.6 on admission -Mag sulfate 1 gm IV x 1 now, continue to monitor Elevated troponin--improving -Troponin 0.492 but coming down from OK in June, will trend x 3 to ensure not rising again HTN, HLD, CAD, angina, h/o OK--stable. Reports no angina for last week or two -Continue ASA, Plavix, atenolol 50 mg PO qd, Lipitor 40 mg PO hs, HCTZ 25 mg PO qd, Imdur 180 mg PO qd, losartan 100 mg PO qd Anemia--baseline Hgb 8-9 since GI bleed in Jun -Hgb 8.6 on admission -Continue ferrous sulfate daily DM II--last HgbA1c 7.1 on 06/06/17 -Hold glimepiride and metformin -Insulin sliding scale -Check BSGs q ac and qhs Prostate cancer, BPH--s/p TURP, Casodex, radiation -Continue alfuzosin 10 mg PO qd, Avodart 0.5 mg PO qd DVT prophylaxis -Enoxaparin 40 mg SC q24h -ENID Montes Code Status -Level I, FULL RESUSCITATION STATUS I personally interviewed and examined the patient. I agree with history of present illness and physical exam mentioned above, I also performed my own history taking and examination. Past medical history and review of system has been obtained by myself I reviewed all pertinent labs and studies Reviewed current medications I discussed and formulated of the assessment and plan mentioned above. Please refer to the Summary mentioned below. 82-year-old man with hypertension dyslipidemia and chronic diastolic CHF presented to the hospital with shortness of breath, generalized weakness and hypoxemia. Patient admits to being noncompliant with his diuretics, also has more weight gain recently reported history of intermittent slurred speech, could be TIA versus metabolic causes like blood sugar or hypoxemia Admit the patient for diuresis, ultrasound carotid, cardiology consult, 2D echo Acute on chronic diastolic heart failure--could be contributing to weakness General Appearance: Obese, in mild acute distress Eyes: normal Sclerae, extraocular muscle intact ENT: hearing grossly normal Neck: supple Respiratory/Chest: Decreased air entry bilateral ,no respiratory distress, no accessory muscle use, scattered rales Cardiovascular: regular rate, rhythm, +2 systolic murmur, positive gallop Abdomen: non tender, soft, no masses Extremities: no edema Neurologic/Psychiatric: Awake alert oriented times place and person moves all extremities sensation intact cranial nerves II-12 appear to be intact Skin: normal color, warm/dry, no rash Rodger Luna MD[facility] Level [facility] Care Telemetry Resuscitation Status FULL RESUSCITATION VTE Prophylaxis VTE Risk Assessment Done? Y/N: Yes Risk Level: Moderate Given or contraindicated: Enoxaparin (Lovenox)SQ, T.E.D. Stockings, SCD's
--- NOTE | 2017-08-23 19:12 | DIAGNOSTIC IMAGING REPORT ---
CAROTID ARTERY ULTRASOUND CLINICAL HISTORY: Slurred speech. COMPARISON STUDY: None. TECHNIQUE: Real-time, grayscale, and color Doppler sonography of the carotid and vertebral arteries was performed. Images were viewed in the transverse and longitudinal planes. FINDINGS: There is mild atherosclerotic plaque. Velocity measurements are listed below. COMMON CAROTID PEAK SYSTOLIC VELOCITY (CM/S): RIGHT 75 LEFT 74 ICA PEAK SYSTOLIC VELOCITY (CM/S): RIGHT 98 LEFT 151 The systolic ratio between the left internal to common carotid artery was mildly elevated at 2. Antegrade flow is seen in the vertebral arteries. The external carotid arteries are patent. Blood pressures could not be obtained in this patient due to IV. Exam was technically difficult due to suboptimal penetration. 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 Electronically signed by: Chris Villegas M.D. 08/23/2017 7:10 PM Dictated Date/Time: 08/23/2017 7:08 PM
[2017-08-23 21:10] VITALS: BP 157/77; PULSE 66; TEMP 36.8; O2SAT 95; Ht 175.3 cm; Wt 125.9 kg
[2017-08-23] MEDS ORDERED: MAGNESIUM SULFATE 1GM / D5W 1 GM in PREMIXED IN D5W 100 ML IV ONE (21:15)
[2017-08-23] MEDS: INSULIN ASPART 100 UNITS/ML 3 ML PEN SC SCH (22:48)
[2017-08-23] MEDS: ATORVASTATIN 40 MG TAB PO SCH (22:59)
[2017-08-23] MEDS: OXYCODONE HCL 10 MG TABCR (OXYCONTIN) PO SCH (22:59)
[2017-08-23] MEDS: ISOSORBIDE MONONITRATE 60 MG TABCR PO SCH (22:59)
[2017-08-23] MEDS: ENOXAPARIN 40 MG/0.4 ML SYR SC SCH (23:00)
[2017-08-24] VITALS (15 sets, daily range): BP systolic 87–150; BP diastolic 53–79; PULSE 55–69; TEMP 36.3–37.1; O2SAT 91–95
[2017-08-24] MEDS: OXYCODONE HCL IR 5 MG TAB (IMMEDIATE RELEASE) PO PRN ×4 (01:25→21:51)
[2017-08-24 04:46] LABS: HEMATOCRIT 26.1 % (42-52); HEMOGLOBIN 8.1 g/dL (14.0-18.0); MEAN CELL VOLUME 87.6 fL (80-100); MEAN CORPUSCULAR HEMOGLOBIN 27.2 pg (25-34); MEAN PLATELET VOLUME 9.2 fL (7.4-10.4); PLATELET COUNT 242 K/uL (130-400); RED CELL DISTRIBUTION WIDTH CV 15.3 % (11.5-14.5); RED CELL DISTRIBUTION WIDTH SD 48.1 fL (36.4-46.3); WHITE BLOOD COUNT 5.81 K/uL (4.8-10.8)
[2017-08-24 05:06] LABS: CALCIUM 8.8 mg/dl (8.5-10.1); CREATININE 1.23 mg/dl (0.60-1.40); POTASSIUM 3.9 mmol/L (3.5-5.1)
[2017-08-24] MEDS: OXYCODONE HCL 10 MG TABCR (OXYCONTIN) PO SCH ×2 (07:55→20:46)
[2017-08-24] MEDS: BUMETANIDE IV 1 MG in SYRINGE 0 ML IV SCH (07:56)
[2017-08-24] MEDS: MULTIVITAMIN TAB PO SCH (07:56)
[2017-08-24] MEDS: ALFUZosin TAB 10 MG TAB PO SCH (07:57)
[2017-08-24] MEDS: PANTOprazole SOD 40 MG TAB PO SCH (07:57)
[2017-08-24] MEDS: ASPIRIN 81 MG ECTAB PO SCH (07:58)
[2017-08-24] MEDS: CLOPIDOGREL BISULFATE 75 MG TAB PO SCH (07:58)
[2017-08-24] MEDS: HYDROCHLOROTHIAZIDE 25 MG TAB PO SCH (07:58)
[2017-08-24] MEDS: LOSARTAN POTASSIUM 50 MG TAB PO SCH (07:58)
[2017-08-24] MEDS: FERROUS SULFATE 325 MG TAB PO SCH (07:59)
[2017-08-24] MEDS: POTASSIUM CHLORIDE 20 MEQ TABCR PO SCH (07:59)
[2017-08-24] MEDS: INSULIN ASPART 100 UNITS/ML 3 ML PEN SC SCH ×4 (08:06→20:43)
--- NOTE | 2017-08-24 09:36 | Cardiology Consultation ---
Cardiology Consultation Date of Consultation: Aug 24, 2017. Requesting Physician: Dr. Baires Reason for Consultation: CHF, elevated troponin Pt evaluation today including: conversation w/ patient, conversation w/ family , physical exam, lab review, review of studies, review of inpatient medication list, conversation w/ attending History of Present Illness This is a 82-year-old gentleman who follows with Dr. Rose and has coronary disease including bypass surgery 4 in 1994, chronic diastolic congestive heart failure, hypertension, hyperlipidemia, diabetes mellitus and chronic stable angina. He was hospitalized in June 2017 with a GI bleed, at that time he was anemic and a colonic source of bleeding was suspected although I believe not confirmed. During this hospitalization he did have chest discomfort, he did have an elevated troponin which was felt to be due to a combination of anemia and discontinuation of aspirin and Plavix due to his GI bleed. He also add his nitrate and beta-pallavi held. Catheterization was therefore not performed. He presented to the emergency room on August 23, 2017 with symptoms of shortness of breath, weakness and dyspnea on exertion. He feels that he never regained his strength since his hospitalization in June. His symptoms worsened in the several days leading to his presentation to the emergency room. His also felt that he had some slurred speech, although that was not observed by the staff and a head CT was negative. He appeared to be in acute heart failure (based on chest x-ray and BNP), his hemoglobin was reduced at 8.6 but was stable based on recent measurements and his troponin was elevated to 0.492. He reports that he occasionally gets chest pain at night for which he takes a nitroglycerin, he also reports that he gets exertional chest tightness which he clearly differentiates from chest pain. He has not been getting exertional chest pain. The exertional chest tightness has been worse recently and occurs with minimal effort. This seems to be related to the shortness of breath and may not be anginal. He calls his chest pain angina does not call his chest tightness angina. At rest he has had none. Past Medical/Surgical History (1) Myocardial infarction (2) Angina (3) Diabetes mellitus (4) Hyperlipidemia (5) Left ventricular diastolic dysfunction (6) Obesity (7) Osteoarthritis (8) REFLUX ESOPHAGITIS (9) Left knee DJD (10) Anemia Family History Diabetes mellitus FH: prostate cancer FHx: colon cancer Hypertension Social History Smoking Status: Former Smoker History of Alcohol Use: No Review of Systems Constitutional: No fever, No weight loss, No weakness Respiratory: No cough, No wheezing, No shortness of breath, No dyspnea on exertion Cardiac: + chest pain Abdomen: No pain, No nausea, No vomiting, No diarrhea, No GI bleeding Male : No urinary frequency, No nocturia more than once/night, No slowing stream, No sexual dysfunction Neurologic: + weakness, No paralysis, No numbness/tingling, No balance problems Heme: No abnormal bleeding/bruising, No clotting problems Endo: No fatigue Skin: No problem reported All Other Systems: Reviewed and Negative Allergies Coded Allergies: Adhesives (Verified Allergy, Unknown, DRAPES TORE PT'S SKIN OFF, 08/23/17) Bee Venom (Verified Allergy, Unknown, SWELLING, 08/23/17) Diclofenac (Verified Allergy, Unknown, 08/23/17) Naproxen (Verified Allergy, Unknown, 08/23/17) Amoxicillin (Verified Adverse Reaction, Unknown, CAUSES DIARRHEA, 08/23/17) Celecoxib (Verified Adverse Reaction, Unknown, gi bleed, 08/23/17) Medications Current Inpatient Medications Medications (Trade) Dose Ordered Sig/Jez Route Start Time Stop Time Status Last Admin Dose Admin Enoxaparin Sodium (Lovenox Inj) 40 mg Q24H SC 08/23/17 21:00 09/22/17 20:59 08/23/17 23:00 40 MG Acetaminophen (Tylenol Tab) 650 mg Q4H PRN PO 08/23/17 17:00 09/22/17 16:59 Al Hydrox/Mg Hydrox/Simethicone (Maalox Max Susp) 15 ml Q4H PRN PO 08/23/17 17:00 09/22/17 16:59 Magnesium Hydroxide (Milk Of Magnesia Susp) 30 ml Q12H PRN PO 08/23/17 17:00 09/22/17 16:59 Ondansetron HCl (Zofran Inj) 4 mg Q6H PRN IV 08/23/17 17:00 09/22/17 16:59 Polyethylene (Miralax Powder Packet) 17 gm DAILY PRN PO 08/23/17 17:00 09/22/17 16:59 Glucose (Glucose 40% Gel) 15-30 GRAMS 15 GRAMS... UD PRN PO 08/23/17 17:00 09/22/17 16:59 Glucose (Glucose Chew Tab) 4-8 Tablets 4 Tabl... UD PRN PO 08/23/17 17:00 09/22/17 16:59 Dextrose (Dextrose 50% 50ML Syringe) 25-50ML OF 50% DW IV FOR... UD PRN IV 08/23/17 17:00 09/22/17 16:59 Glucagon (Glucagon Inj) 1 mg UD PRN SQ 08/23/17 17:00 09/22/17 16:59 Alfuzosin HCl (Uroxatral Tab) 10 mg QAM PO 08/24/17 09:00 09/23/17 08:59 08/24/17 07:57 10 MG Aspirin (Ecotrin Tab) 81 mg DAILY PO 08/24/17 09:00 09/23/17 08:59 08/24/17 07:58 81 MG Atenolol (Tenormin Tab) 50 mg QAM PO 08/24/17 09:00 09/23/17 08:59 08/24/17 07:59 50 MG Atorvastatin Calcium (Lipitor Tab) 40 mg HS PO 08/23/17 21:00 09/22/17 20:59 08/23/17 22:59 40 MG Clopidogrel Bisulfate (plAVix TAB) 75 mg DAILY PO 08/24/17 09:00 09/23/17 08:59 08/24/17 07:58 75 MG Hydrochlorothiazide (Hydrochlorothiazide Tab) 25 mg QAM PO 08/24/17 09:00 09/23/17 08:59 08/24/17 07:58 25 MG Isosorbide Mononitrate (Imdur Ext Rel Tab) 180 mg QPM PO 08/23/17 21:00 09/22/17 20:59 08/23/17 22:59 180 MG Losartan Potassium (coZAAR TAB) 100 mg QAM PO 08/24/17 09:00 09/23/17 08:59 08/24/17 07:58 100 MG Multivitamins (Multivitamin Tab) 1 tab QAM PO 08/24/17 09:00 09/23/17 08:59 08/24/17 07:56 1 TAB Nitroglycerin (Nitrostat Tab) 0.4 mg UD PRN UT 08/23/17 17:00 09/22/17 16:59 Oxycodone HCl (Oxycontin Tab) 10 mg BID PO 08/23/17 21:00 09/06/17 20:59 08/24/17 07:55 10 MG Oxycodone HCl (Roxicodone Immediate Rel Tab) 5 mg Q6H PRN PO 08/23/17 17:00 09/06/17 16:59 08/24/17 07:55 5 MG Pantoprazole Sodium (Protonix Tab) 40 mg QAM PO 08/24/17 09:00 09/23/17 08:59 08/24/17 07:57 40 MG Potassium Chloride (Klor-Con Tab) 20 meq QAM PO 08/24/17 09:00 09/23/17 08:59 08/24/17 07:59 20 MEQ Miscellaneous Information (Order Awaiting Action) 1 ea QS N/A 08/24/17 00:00 09/23/17 00:00 Bumetanide 1 mg/ Syringe 4 ml @ 4 mls/min DAILY IV 08/24/17 09:00 09/23/17 08:59 08/24/17 07:56 4 MLS/MIN Insulin Aspart (novoLOG ASPART) SLIDING SCALE G... ACHS SC 08/23/17 21:00 09/22/17 20:59 08/24/17 08:06 4 UNITS Ferrous Sulfate (Feosol Tab) 325 mg QAM PO 08/24/17 09:00 09/23/17 08:59 08/24/17 07:59 325 MG Physical Exam Vital Signs Past 12 Hours Date Time Temp Pulse Resp B/P (MAP) Pulse Ox O2 Delivery O2 Flow Rate FiO2 08/24/17 08:21 37.1 65 20 143/73 (96) 91 Nasal Cannula 2.0 08/24/17 04:00 Nasal Cannula 2.0 08/24/17 03:02 36.3 65 20 111/63 (79) 92 Nasal Cannula 2.0 08/24/17 00:08 36.7 64 24 118/65 (82) 93 Nasal Cannula 2.0 08/24/17 00:00 Nasal Cannula 2.0 Constitutional: General Apperance: overweight Level of Distress: NAD Psychiatric: Mental Status: active & alert Head: normocephalic Eyes: EOM: EOMI ENMT: normal ENT inspection, hearing grossly normal Neck: supple, no masses Lungs: Respiratory effort: no dyspnea, good air movement Auscultation: no wheezing, deminished air movement, rales/crackles on the left, rales/crackles on the right Cardiovascular: Heart Auscultation: RRR, no murmurs, no rubs, no gallops Peripheral Pulses: Bruits: none appreciated Abdomen: Bowel Sounds: normal Inspection & Palpation: soft, no tenderness, guarding & rebound, no masses Musculoskeletal: normal strength (5/5 throughout) Extremities: no edema Neurologic: Cranial Nerves: grossly intact Sensation: grossly intact Data Laboratory Results: Last 24 Hours Test 08/23/17 12:25 08/23/17 13:00 08/23/17 20:29 08/23/17 22:43 Prothrombin Time 11.1 SECONDS Prothromb Time International Ratio 1.1 Sodium Level 136 mmol/L Potassium Level 4.3 mmol/L Chloride Level 98 mmol/L Carbon Dioxide Level 32 mmol/L Anion Gap 6.0 mmol/L Blood Urea Nitrogen 24 mg/dl Creatinine 1.18 mg/dl Est Creatinine Clear Calc Drug Dose 65.2 ml/min Estimated GFR () 65.7 Estimated GFR (Non- 56.7 BUN/Creatinine Ratio 20.3 Random Glucose 133 mg/dl Calcium Level 9.1 mg/dl Phosphorus Level 3.9 mg/dl Magnesium Level 1.6 mg/dl Total Bilirubin 0.6 mg/dl Aspartate Amino Transf (AST/SGOT) 27 U/L Alanine Aminotransferase (ALT/SGPT) 25 U/L Alkaline Phosphatase 89 U/L Troponin I 0.492 ng/ml 0.545 ng/ml Pro-B-Type Natriuretic Peptide 6077 pg/ml Total Protein 7.5 gm/dl Albumin 3.5 gm/dl Globulin 4.0 gm/dl Albumin/Globulin Ratio 0.9 Urine Color YELLOW Urine Appearance CLEAR Urine pH 6.5 Urine Specific [place] 1.007 Urine Protein NEG Urine Glucose (UA) NEG Urine Ketones NEG Urine Occult Blood NEG Urine Nitrite NEG Urine Bilirubin NEG Urine Urobilinogen NEG Urine Leukocyte Esterase NEG Bedside Glucose 179 mg/dl Test 08/24/17 04:17 08/24/17 06:54 White Blood Count 5.81 K/uL Red Blood Count 2.98 M/uL Hemoglobin 8.1 g/dL Hematocrit 26.1 % Mean Corpuscular Volume 87.6 fL Mean Corpuscular Hemoglobin 27.2 pg Mean Corpuscular Hemoglobin Concent 31.0 g/dl RDW Standard Deviation 48.1 fL RDW Coefficient of Variation 15.3 % Platelet Count 242 K/uL Mean Platelet Volume 9.2 fL Sodium Level 139 mmol/L Potassium Level 3.9 mmol/L Chloride Level 99 mmol/L Carbon Dioxide Level 35 mmol/L Anion Gap 5.0 mmol/L Blood Urea Nitrogen 26 mg/dl Creatinine 1.23 mg/dl Est Creatinine Clear Calc Drug Dose 60.4 ml/min Estimated GFR () 62.5 Estimated GFR (Non- 54.0 BUN/Creatinine Ratio 20.8 Random Glucose 186 mg/dl Calcium Level 8.8 mg/dl Magnesium Level 1.9 mg/dl Troponin I 0.481 ng/ml Bedside Glucose 161 mg/dl Imaging: His chest x-ray is a portable film, he may have mild congestive heart failure but it is not severe. EKG: His electrocardiogram in the emergency room on August 23, 2017 shows sinus rhythm with intact AV conduction and a PVC, he has left axis deviation, consistent with left anterior fascicular block, and right bundle branch block. This is consistent with bifascicular block. No acute changes however. Another electrocardiogram done this morning is similar. These are virtually unchanged from prior electrocardiograms in June 2017. Telemetry reviewed: Sinus rhythm with intact AV conduction, no significant abnormality Echocardiography: I reviewed his echocardiogram in the room as it was being done , he does not have severe left ventricular dysfunction. This will be compared to prior echocardiograms later an official report is pending. Assessment & Plan 1. Weakness: I do not think his weakness is predominantly due to his cardiac condition, I suspect it is in large part due to his anemia and perhaps general deconditioning. It may be prudent to consider a blood transfusion and see how he feels. 2. Dyspnea on exertion and exertional chest tightness: This is likely due to congestive heart failure, his heart failure is not severe but coupled with his anemia is probably sufficient to cause these symptoms. These have been progressive over the last few days. I would recommend treating his congestive heart failure and his anemia and see whether the symptoms resolved. I am reluctant to consider repeat catheterization, although if the symptoms continue we may have to consider that. 3. Elevated troponin: He has elevation of his troponin but there is not much of a warp changer the measurements that we have this admission. This may be due to demand ischemia from his heart failure and his anemia, I think given his significant coronary artery disease that he should have a higher hemoglobin. I would not consider acute intervention currently. 4. Congestive heart failure: He seems to have some element of congestive heart failure but his chest x-ray is not very compelling, his exam does suggest mild heart failure. I would agree with gentle diuresis watching his creatinine. I do not think this is a major part of his presentation but is probably contributory, especially to his exertional symptoms. 5. Bifascicular block: He has long-standing bifascicular block but does not have symptoms to suggest higher grade AV block. I would continue to watch him on telemetry. Thank you for allowing me to participate in his care.
--- NOTE | 2017-08-24 12:30 | PROGRESS NOTE ---
DATE: 08/24/2017 HOSPITALIST PROGRESS NOTE HISTORY OF PRESENT ILLNESS: Mr. Hallman is a patient is a very pleasant 82-year-old white male with a history of multivessel inoperable CAD status post CABG x4 vessels in 1994 (JAMES to LAD, SVG to OM, SVG to RCA, and SVG to diagonal), chronic stable angina pectoris, chronic diastolic CHF, hypertension, dyslipidemia, type 2 diabetes mellitus, and prostate cancer who presented in June 2017 with hematochezia and acute GI bleed. Workup at that time revealed a bleeding gastric polyp which was clipped, and colonoscopy revealed peyton blood suspected to be diverticular in nature. The patient was anemic at that time and received 6 units of packed red blood cells. Since being discharged from the hospital in June, he has never regained his stamina, strength, or endurance. The patient presented acutely to [facility] Emergency Room yesterday complaining of generalized weakness, dyspnea on exertion and worsening shortness of breath. Briefly, he had some difficult to understand and possibly slurred speech, the CT scan of the head was negative. Thus far, we have noted an elevated ProBNP, and some pulmonary edema on chest x-ray. However, he is also anemic with a hemoglobin of 8.1 g/dL, and that has gradually trended down since June 2017 and is likely contributing to his symptoms. The patient does have home physical therapy coming in, but he does not seem to be progressing as well as he expected, this may be in some part due to recent hospitalization and has marked anemia. The patient did start on supplemental iron last week as per his PCP. The patient offers no other complaints. He denies any chest pain or angina pectoris. He has not had any shortness of breath at rest, but he has been more dyspneic with exertion. Generally, he can walk about 25 feet on a flat surface and before he has to stop to catch his breath. The patient denies any palpitations, syncope, or near syncope. MEDICATIONS: 1. Bumex 1 mg IV daily. 2. Uroxatral 10 mg daily. 3. Ecotrin 81 mg daily. 4. Tenormin 50 mg daily. 5. Plavix 75 mg a day. 6. Hydrochlorothiazide 25 mg daily. 7. Cozaar 100 mg q.a.m. 8. Multivitamin daily. 9. Protonix 40 mg daily. 10. KCl 20 mEq daily. 11. Feosol tablets 325 mg daily. 12. Lovenox 40 mg subcutaneous injection q. 24 hours. 13. Lipitor 40 mg at bedtime. 14. Imdur 180 mg each evening. 15. OxyContin 10 mg b.i.d. 16. NovoLog sliding scale insulin. 17. Tylenol p.r.n. 18. Milk of Magnesia p.r.n. 19. Maalox Max p.r.n. 20. Zofran p.r.n. 21. MiraLax 17 grams daily as needed. 22. Sublingual nitroglycerin as needed. ALLERGIES: 1. ADHESIVES. 2. AMOXICILLIN. 3. CELEBREX. 4. DICLOFENAC. 5. NAPROXEN. 6. BEE STINGS. PHYSICAL EXAMINATION: VITAL SIGNS: Temperature is 37.1 degree Celsius, pulse 65 and regular, respiratory rate is 18 and unlabored, blood pressure is 143/73, SPO2 is 91% on 2 liters oxygen via nasal cannula. I's and O's minus 675 mL overnight. Body weight today is 129.4 kilograms. GENERAL: Pale complexion, patient in no acute distress. HEENT: Head is atraumatic, normocephalic. EOMs intact. Sclerae are anicteric. Facies symmetric. No perioral cyanosis. Mucous membranes moist. NECK: Without JVD. Jugular venous pressure is just above the clavicle sitting upright. CHEST AND LUNGS: With mildly diminished breath sounds in bilateral bases, otherwise clear. CARDIOVASCULAR: S1 and S2 are regular, distant, without obvious murmur, gallop or rub. PMI is nondisplaced. No lifts, heaves, or thrills. No abdominal, aortic or renal bruits. ABDOMEN: Bowel sounds present. No masses, organomegaly or tenderness. EXTREMITIES: Nonpitting edema of the distal leg bilaterally. Calves are soft, nontender. Intact posterior tibial and radial pulses bilaterally. NEUROLOGIC: The patient is awake, alert and oriented. Pleasant and cooperative. Answers questions appropriately. Speech is clear. Normal movement in all 4 extremities. Gait pattern not assessed. LABORATORIES: White blood cell is 5.1. Hemoglobin 8.1 g/dL, hematocrit 26.1% and platelet count 242,000. Sodium is 139 mmol/L, potassium 3.9 mmol/L, BUN 26 mg/dL, creatinine 1.23 mg/dL and random glucose 161 mg/dL. Serum magnesium level was normal at 1.9 mg/dL. ProBNP elevated at 6077 pg/mL on admission. Troponin I levels are 0.481, 0.545, and 0.492 ng/mL. Urinalysis is unremarkable. IMAGING DATA: Carotid ultrasound shows 50%-69% stenosis of the proximal left internal carotid artery, although the study was technically limited. Head CT scan shows no acute intracranial abnormalities. Chest x-ray on admission shows moderate cardiomegaly with increased prominence of the pulmonary vasculature. ASSESSMENT: 1. Generalized weakness, exertional dyspnea, poor stamina, with a marked anemia of 8.1 g/dL. 2. Acute on chronic diastolic congestive heart failure to a minor degree. 3. Multivessel inoperable coronary artery disease status post coronary artery bypass grafting x4 vessels in 1994. 4. Elevated troponin I is likely secondary to myocardial O2 supply demand mismatch. 5. Hypertension 6. Dyslipidemia. 7. Type 2 diabetes mellitus. 8. Prostate cancer. PLAN: 1. Continue IV Bumex 1 mg daily. 2. Continue monitoring daily I and O's, body weights. 3. Recommend transfusion x2 units of packed red blood cells, keep 2 units in reserve in case necessary. 4. The patient is now taking oral supplemental iron, so a stool guaiac card will likely be positive. 5. Suspect that he has a slow low level bleed in his GI tract, either related to gastric polyps, or less likely a diverticular source. 6. Continue atenolol 50 mg daily. 7. Continue aspirin 81 mg daily. 8. Continue Plavix 75 mg daily. 9. Continue hydrochlorothiazide 25 mg daily. 10. Continue Cozaar 100 mg daily. 11. Continue Protonix 40 mg daily for GI prophylaxis. 12. Continue potassium chloride at current dose. 13. The patient will receive 1 extra dose of Bumex 1 mg IV between units of packed red blood cells. 14. His hypomagnesemia has been corrected. 15. Continue Lovenox for deep venous thrombosis prophylaxis. 16. Continue Lipitor 40 mg daily. 17. Continue Imdur 180 mg daily. 18. After the patient receives transfusion, will most likely consult physical therapy in order to rebuild stamina. He will also continue home physical therapy treatments. 19. We will continue to follow closely while hospitalized. MTDD
[2017-08-24] MEDS ORDERED: BUMETANIDE IV 1 MG in SYRINGE 0 ML IV ONE (13:00)
--- NOTE | 2017-08-24 18:00 | ECHOCARDIOGRAM REPORT ---
*NOTICE TO RECEIVING [employer] This information is strictly Confidential and protected under [place] law. [place] law prohibits you from making any further disclosure of this information unless further disclosure is expressly permitted by the written consent of the person to whom it pertains or is authorized by law. A general authorization for the release of medical or other information is not sufficient for this purpose. Hospital accepts no responsibility if the information is made available to any other person, INCLUDING THE PATIENT. Interpretation Summary * Name: ROBY DUONG Study Date: 08/24/2017 09:02 AM BP: 111/63 mmHg * Patient Location: C.2T\S\S244\S\1 HR: 73 * : 1935 (M/d/yyyy) Gender: Male Height: 69 in * Age: 82 yrs Ethnicity: [place] Weight: 301 lb * Ordering Physician: Cari Baires * Referring Physician: Self, Referred * Performed By: Shawn Calzada RDCS * * Reason For Study: CHF * BSA: 2.5 m2 * -- Conclusions -- * 1. LV mildly dilated, normal LV wall thickness. * 2. LVEF 50-55%. Abnormal septal motion. * 3. RV dilated. Borderline RV function. * 4. Grade II diastolic dysfunction. * 5. Moderate pulmonary hypertension. Est PASP 55-60 mmHg. Normal est CVP. * 6. Compared with prior study on 06/15/2017: RV dilation, pulmonary hypertension better appreciated. Procedure Details * A complete two-dimensional transthoracic echocardiogram was performed (2D, M-mode, Doppler and color flow Doppler). * The study was technically adequate. Left Ventricle * The left ventricle is mildly dilated. * There is normal left ventricular wall thickness. * Ejection Fraction = 50-55%. Right Ventricle * The right ventricle is moderately dilated. * The right ventricular systolic function is mildly reduced. Atria * The left atrium is severely dilated. * The right atrium is moderately dilated. Mitral Valve * The mitral valve is grossly normal. * There is no mitral valve stenosis. * There is trace mitral regurgitation. Tricuspid Valve * There is trace tricuspid regurgitation. * Right ventricular systolic pressure is elevated at 50-60mmHg. Aortic Valve * Aortic valve sclerosis moderate, without significant aortic valvular stenosis. * No hemodynamically significant valvular aortic stenosis. * There is no significant aortic regurgitation. Pulmonic Valve * The pulmonary valve is inadequately visualized, but the Doppler data is adequate for interpretation. * Pulmonic stenosis is absent. * Trace pulmonic valvular regurgitation. Great Vessels * The aortic root and proximal ascending aorta are normal sized. Pericardium/Pleural * There is no pericardial effusion. Great Vessels * Normal inferior vena cava size and collapsability with sniff indicates a normal right atrial pressure of 3 mmHg Left Ventricular Diastolic Function * Diastolic dysfunction, Grade II (pseudonormalization pattern). MMode 2D Measurements and Calculations IVSd 1.2 cm IVSs 1.8 cm LVIDd 6.1 cm LVIDs 4.2 cm LVPWd 0.93 cm LVPWs 1.4 cm IVS/LVPW 1.3 FS 32.4 % EDV(Teich) 189.9 ml ESV(Teich) 76.5 ml EF(Teich) 59.7 % EDV(cubed) 231.7 ml ESV(cubed) 71.6 ml EF(cubed) 69.1 % % IVS thick 48.7 % % LVPW thick 54.7 % LV mass(C)d 279.8 grams LV mass(C)dI 113.8 grams/m\S\2 LV mass(C)s 276.1 grams LV mass(C)sI 112.3 grams/m\S\2 SV(Teich) 113.4 ml SI(Teich) 46.1 ml/m\S\2 SV(cubed) 160.1 ml SI(cubed) 65.1 ml/m\S\2 EPSS 1.0 cm Ao root diam 3.5 cm Ao root area 9.7 cm\S\2 ACS 1.3 cm LA dimension 5.5 cm asc Aorta Diam 3.2 cm LA/Ao 1.6 LVAd ap4 43.2 cm\S\2 LVLd ap4 9.2 cm EDV(MOD-sp4) 168.6 ml EDV(sp4-el) 173.0 ml LVAs ap4 27.0 cm\S\2 LVLs ap4 8.3 cm ESV(MOD-sp4) 75.9 ml ESV(sp4-el) 74.8 ml EF(MOD-sp4) 55.0 % EF(sp4-el) 56.8 % LVAd ap2 41.5 cm\S\2 LVLd ap2 8.8 cm EDV(MOD-sp2) 161.3 ml EDV(sp2-el) 165.7 ml LVAs ap2 24.5 cm\S\2 LVLs ap2 7.1 cm ESV(MOD-sp2) 73.3 ml ESV(sp2-el) 72.2 ml EF(MOD-sp2) 54.5 % EF(sp2-el) 56.4 % LVLd %diff -4.25 % EDV(MOD-bp) 167.9 ml LVLs %diff -17.63 % ESV(MOD-bp) 81.7 ml EF(MOD-bp) 51.4 % SV(MOD-sp4) 92.8 ml SI(MOD-sp4) 37.7 ml/m\S\2 SV(MOD-sp2) 87.9 ml SI(MOD-sp2) 35.8 ml/m\S\2 SV(MOD-bp) 86.3 ml SI(MOD-bp) 35.1 ml/m\S\2 SV(sp4-el) 98.3 ml SI(sp4-el) 40.0 ml/m\S\2 SV(sp2-el) 93.5 ml SI(sp2-el) 38.0 ml/m\S\2 Doppler Measurements and Calculations MV E max jaqueline 90.7 cm/sec MV A max jaqueline 58.0 cm/sec MV E/A 1.6 MV dec time 0.24 sec Ao V2 max 202.2 cm/sec Ao max PG 16.3 mmHg Ao max PG (full) 14.1 mmHg Ao V2 mean 139.7 cm/sec Ao mean PG 9.0 mmHg Ao V2 VTI 45.3 cm LV V1 max PG 2.2 mmHg LV V1 max 74.5 cm/sec SV(Ao) 440.8 ml SI(Ao) 179.4 ml/m\S\2 PA V2 max 101.7 cm/sec PA max PG 4.1 mmHg PA acc slope 577.9 cm/sec\S\2 PA acc time 0.12 sec PI end-d jaqueline 142.3 cm/sec TR max jaqueline 327.4 cm/sec PA pr(Accel) 24.8 mmHg
[2017-08-24] MEDS: ATORVASTATIN 40 MG TAB PO SCH (20:45)
[2017-08-24] MEDS: ISOSORBIDE MONONITRATE 60 MG TABCR PO SCH (20:45)
[2017-08-24] MEDS: ENOXAPARIN 40 MG/0.4 ML SYR SC SCH (20:46)
[2017-08-25] VITALS (21 sets, daily range): BP systolic 92–151; BP diastolic 56–77; PULSE 49–82; TEMP 36.3–37.2; O2SAT 87–100
[2017-08-25] MEDS: OXYCODONE HCL IR 5 MG TAB (IMMEDIATE RELEASE) PO PRN (04:06)
[2017-08-25 05:46] LABS: HEMATOCRIT 31.2 % (42-52); HEMOGLOBIN 9.9 g/dL (14.0-18.0); MEAN CELL VOLUME 87.6 fL (80-100); MEAN CORPUSCULAR HEMOGLOBIN 27.8 pg (25-34); MEAN CORPUSCULAR HGB CONC 31.7 g/dl (32-36); MEAN PLATELET VOLUME 9.3 fL (7.4-10.4); PLATELET COUNT 236 K/uL (130-400); RED CELL DISTRIBUTION WIDTH CV 15.3 % (11.5-14.5); RED CELL DISTRIBUTION WIDTH SD 49.3 fL (36.4-46.3); WHITE BLOOD COUNT 6.19 K/uL (4.8-10.8)
[2017-08-25 06:18] LABS: CREATININE 1.24 mg/dl (0.60-1.40)
[2017-08-25 06:19] LABS: CALCIUM 8.5 mg/dl (8.5-10.1); POTASSIUM 3.6 mmol/L (3.5-5.1)
[2017-08-25] MEDS: FERROUS SULFATE 325 MG TAB PO SCH (07:50)
[2017-08-25] MEDS: CLOPIDOGREL BISULFATE 75 MG TAB PO SCH (07:50)
[2017-08-25] MEDS: BUMETANIDE IV 1 MG in SYRINGE 0 ML IV SCH (07:50)
[2017-08-25] MEDS: PANTOprazole SOD 40 MG TAB PO SCH (07:51)
[2017-08-25] MEDS: ALFUZosin TAB 10 MG TAB PO SCH (07:51)
[2017-08-25] MEDS: MULTIVITAMIN TAB PO SCH (07:51)
[2017-08-25] MEDS: ASPIRIN 81 MG ECTAB PO SCH (07:51)
[2017-08-25] MEDS: LOSARTAN POTASSIUM 50 MG TAB PO SCH (07:51)
[2017-08-25] MEDS: POTASSIUM CHLORIDE 20 MEQ TABCR PO SCH (07:52)
[2017-08-25] MEDS: HYDROCHLOROTHIAZIDE 25 MG TAB PO SCH (07:52)
[2017-08-25] MEDS: OXYCODONE HCL 10 MG TABCR (OXYCONTIN) PO SCH (08:00)
[2017-08-25] MEDS: INSULIN ASPART 100 UNITS/ML 3 ML PEN SC SCH ×4 (08:00→21:00)
--- NOTE | 2017-08-25 09:58 | Cardiology Follow-Up ---
Subjective Date of Service: Aug 25, 2017. Pt evaluation today including: conversation w/ patient, physical exam, lab review, review of studies, review of inpatient medication list History of Present Illness This is a 82-year-old gentleman who follows with Dr. Rose and has coronary disease including bypass surgery 4 in 1994, chronic diastolic congestive heart failure, hypertension, hyperlipidemia, diabetes mellitus and chronic stable angina. He was hospitalized in June 2017 with a GI bleed, at that time he was anemic and a colonic source of bleeding was suspected although I believe not confirmed. During this hospitalization he did have chest discomfort, he did have an elevated troponin which was felt to be due to a combination of anemia and discontinuation of aspirin and Plavix due to his GI bleed. He also add his nitrate and beta-pallavi held. Catheterization was therefore not performed. He presented to the emergency room on August 23, 2017 with symptoms of shortness of breath, weakness and dyspnea on exertion. He feels that he never regained his strength since his hospitalization in June. His symptoms worsened in the several days leading to his presentation to the emergency room. His also felt that he had some slurred speech, although that was not observed by the staff and a head CT was negative. He appeared to be in acute heart failure (based on chest x-ray and BNP), his hemoglobin was reduced at 8.6 but was stable based on recent measurements and his troponin was elevated to 0.492. He reports that he occasionally gets chest pain at night for which he takes a nitroglycerin, he also reports that he gets exertional chest tightness which he clearly differentiates from chest pain. He has not been getting exertional chest pain. The exertional chest tightness has been worse recently and occurs with minimal effort. This seems to be related to the shortness of breath and may not be anginal. He calls his chest pain angina does not call his chest tightness angina. At rest he has had none. He has received blood here and his hemoglobin is better, however he is still complaining of fatigue and difficulty with exertion but no chest discomfort. No lightheadedness or dizziness. Social History Smoking Status: Former Smoker History of Alcohol Use: No Review of Systems Respiratory: No cough, No wheezing, No shortness of breath, No dyspnea on exertion Cardiac: + see HPI, No chest pain Medications Cardiovascular: Item Value Date Time Aspirin 81 mg 08/24/17 0900 (Ecotrin Tab) DAILY/PO 08/25/17 0751 Atenolol 50 mg 08/24/17 0900 (Tenormin Tab) QAM/PO 08/25/17 0752 Clopidogrel 75 mg 08/24/17 0900 Bisulfate DAILY/PO 08/25/17 0750 (plAVix TAB) Hydrochlorothiazide 25 mg 08/24/17 0900 (Hydrochlorothiazide QAM/PO 08/25/17 0752 Tab) Losartan Potassium 100 mg 08/24/17 0900 (coZAAR TAB) QAM/PO 08/25/17 075 Potassium Chloride 20 meq 08/24/17 09 (Klor-Con Tab) QAM/PO 08/25/17 075 Bumetanide 1 mg/ 4 ml @ 4 mls/min 08/24/17 0900 Syringe DAILY/IV 08/25/17 075 Enoxaparin Sodium 40 mg 08/23/17 2100 (Lovenox Inj) Q24H/SC 08/24/172045 Atorvastatin 40 mg 08/23/17 2100 Calcium HS/PO 08/24/172044 (Lipitor Tab) Isosorbide 180 mg 08/23/17 2100 Mononitrate QPM/PO 08/24/172044 (Imdur Ext Rel Tab) Objective Vital Signs Past 12 Hours Date Time Temp Pulse Resp B/P (MAP) Pulse Ox O2 Delivery O2 Flow Rate FiO2 08/25/17 07:31 37.2 65 18 151/76 (101) 92 Room Air 08/25/17 04:00 Nasal Cannula 3.0 08/25/17 03:43 37.0 73 16 143/77 (99) 90 3.0 08/25/17 00:05 37.2 70 16 138/72 (94) 91 3.0 08/25/17 00:00 Nasal Cannula 3.0 Last Recorded Weight-Kilograms: 128.000 Physical Exam Constitutional: General Apperance: overweight Level of Distress: NAD Lungs: Respiratory effort: no dyspnea, good air movement Auscultation: no wheezing, deminished air movement, rales/crackles on the left, rales/crackles on the right Cardiovascular: Heart Auscultation: RRR, no murmurs, no rubs, no gallops, bradycardia Peripheral Pulses: Bruits: none appreciated Extremities: no edema Data Laboratory Results: Last 24 Hours Test 08/24/17 10:39 08/24/17 16:31 08/24/17 20:32 08/25/17 05:17 Bedside Glucose 186 mg/dl 150 mg/dl 141 mg/dl White Blood Count 6.19 K/uL Red Blood Count 3.56 M/uL Hemoglobin 9.9 g/dL Hematocrit 31.2 % Mean Corpuscular Volume 87.6 fL Mean Corpuscular Hemoglobin 27.8 pg Mean Corpuscular Hemoglobin Concent 31.7 g/dl RDW Standard Deviation 49.3 fL RDW Coefficient of Variation 15.3 % Platelet Count 236 K/uL Mean Platelet Volume 9.3 fL Sodium Level 140 mmol/L Potassium Level 3.6 mmol/L Chloride Level 97 mmol/L Carbon Dioxide Level 35 mmol/L Anion Gap 8.0 mmol/L Blood Urea Nitrogen 33 mg/dl Creatinine 1.24 mg/dl Est Creatinine Clear Calc Drug Dose 59.8 ml/min Estimated GFR () 61.9 Estimated GFR (Non- 53.4 BUN/Creatinine Ratio 26.4 Random Glucose 141 mg/dl Calcium Level 8.5 mg/dl Magnesium Level 1.9 mg/dl Telemetry reviewed: Sinus rhythm and sinus bradycardia with premature ventricular beats, his heart rate has overall trended down since admission Assessment and Plan 1. Weakness: I do not think his weakness is predominantly due to his cardiac condition, I suspect it is in large part due to his anemia and perhaps general deconditioning, possibly due to bradycardia as well. 2. Dyspnea on exertion and exertional chest tightness: This is likely due to congestive heart failure, his heart failure is not severe but coupled with his anemia is probably sufficient to cause these symptoms. These have not worsened here but he is not very active and may be too early to tell. I am reluctant to consider repeat catheterization, although if the symptoms continue we may have to consider that. 3. Elevated troponin: He has elevation of his troponin but there is not much of a change room attendant the measurements that we have this admission. This may be due to demand ischemia from his heart failure and his anemia. I would not consider acute intervention currently. 4. Congestive heart failure: He seems to have some element of congestive heart failure but his chest x-ray is not very compelling, his exam did suggest mild heart failure. I would agree with gentle diuresis watching his creatinine. I do not think this is a major part of his presentation but is probably contributory, especially to his exertional symptoms. 5. Bifascicular block: He has long-standing bifascicular block but does not have symptoms to suggest higher grade AV block. I would continue to watch him on telemetry. 6. Bradycardia: He has sinus bradycardia, that seems to have been progressive despite no change in his beta-pallavi dose. I suspect when he came in he had a high catecholamine level from his anemia and overall symptoms, now that has probably dropped and his heart rate has as well. At this point I think we should stop his beta-pallavi although it is a good drug for him to be on. If he has recurrent chest discomfort we may need to consider a pacemaker to allow use of beta blockade. I think his heart rate is too low now to continue it. Thank you for allowing me to participate in his care.
[2017-08-25] MEDS ORDERED: ACETAMINOPHEN 325 MG TAB PO SCH (11:00)
[2017-08-25] MEDS ORDERED: OXYCODONE HCL IR 5 MG TAB (IMMEDIATE RELEASE) PO PRN (11:15)
--- NOTE | 2017-08-25 12:00 | PROGRESS NOTE ---
DATE: 08/25/2017 HISTORY OF PRESENT ILLNESS: Mr. Hallman is an 82-year-old white male with a history of multivessel and inoperable CAD status post CABG x4 vessels in 1994 (JAMES to LAD, SVG to OM, SVG to RCA, and SVG to diagonal), chronic stable angina pectoris, chronic diastolic CHF, hypertension, dyslipidemia, type 2 diabetes mellitus, prostate cancer, and a history of GI bleeding in June 2017 with resultant anemia. Workup at that time revealed a bleeding gastric polyp, which was clipped, and colonoscopy revealed peyton blood suspected to be diverticular in origin. Yesterday, his hemoglobin was down to 8.1, and he received 2 units of packed red blood cells. He was also treated for hypervolemia, and has had a negative fluid balance of 1565 mL overnight. Despite these interventions, the patient still feels fatigued, dyspneic on exertion, and he has not slept well because of hip pain. He was noted to be markedly bradycardic overnight with heart rates in the 30s, so this may be playing a role in his symptoms as well. MEDICATIONS: 1. Uroxatral 10 mg q.a.m. 2. Aspirin 81 mg daily. 3. Plavix 75 mg daily. 4. Hydrochlorothiazide 25 mg daily. 5. Cozaar 100 mg daily. 6. Multivitamin daily. 7. Protonix 40 mg q.a.m. 8. Klor-Con 20 mEq q.a.m. 9. Bumex 1 mg IV daily. 10. Ferrous sulfate 325 mg q.a.m. 11. Lovenox 40 mg subcutaneous injection q.24 hours. 12. Atorvastatin 40 mg at bedtime. 13. Imdur 180 mg daily. 14. OxyContin 10 mg b.i.d. 15. NovoLog sliding scale insulin. 16. Tylenol 650 mg p.r.n. 17. Maalox Max p.r.n. 18. Milk of magnesia 30 mL q.12 hours p.r.n. 19. Zofran 4 mg IV p.r.n. 20. MiraLax 17 g daily as needed for constipation. 21. Sublingual nitroglycerin as needed. 22. OxyIR 5 mg p.o. q.6 hours p.r.n. for pain. ALLERGIES: 1. ADHESIVES. 2. AMOXICILLIN. 3. CELEBREX. 4. DICLOFENAC. 5. NAPROXEN. 6. BEE STINGS. PHYSICAL EXAMINATION: VITAL SIGNS: Temperature is 37.3 degrees Celsius, pulse is 58 and regular, respiratory rate is 16 and unlabored, blood pressure is 151/76, and SpO2 is 93% on 3 liters oxygen via nasal cannula. I's and O's -1565 mL overnight. Body weight is down 1.4 kilograms from yesterday. GENERAL: The patient is in no acute distress. HEENT: Complexion is pale. Head is atraumatic, normocephalic. EOMs intact. Sclerae are anicteric. Face is symmetric. No perioral cyanosis. Mucous membranes moist. NECK: Without obvious JVD. Jugular venous pressure is just above the clavicle sitting upright. CHEST AND LUNGS: With diminished breath sounds in bilateral bases. No obvious wheezes, rales, or crackles. CARDIOVASCULAR: S1 and S2 are regular, distant, and bradycardic without obvious murmur, gallop, or rub. PMI is nondisplaced. No lifts, heaves, or thrills. No abdominal, aortic, or renal bruits. ABDOMEN: Bowel sounds present. No masses, organomegaly, or tenderness. EXTREMITIES: With nonpitting edema to the level of the proximal pretibial surface. Calves are soft, nontender. Intact posterior tibial and radial pulses bilaterally. NEUROLOGIC: The patient is awake, alert, oriented. Pleasant and cooperative. Answers questions appropriately. Speech is clear. Normal movement of all 4 extremities. LABORATORY DATA: White blood cell count of 6.19, hemoglobin 9.9 g/dL, hematocrit 31.2%, and platelet count is 236,000. Sodium is 140 mmol/L, potassium 3.6 mmol/L, BUN is 33 mg/dL, creatinine 1.24 mg/dL. Helfp-ju-oqkd glucose 154 mg/dL. Serum magnesium level was normal at 1.9 mg/dL. Telemetry monitoring overnight shows periods of profound sinus bradycardia with heart rates as low as mid 30s. He has a right bundle branch block and left anterior fascicular block noted as well. EKG done today shows sinus rhythm at 63 beats per minute, was in RBBB pattern, and left anterior fascicular block. When compared to 08/24/2017 tracing, no significant change. Echocardiogram on 08/24/2017 shows a mildly dilated LV with normal LV wall thickness, LVEF 50% to 55% with abnormal septal motion consistent with conduction delay. RV is dilated with borderline RV systolic function. Grade 2 diastolic dysfunction. Moderate pulmonary hypertension with an estimated pulmonary artery systolic pressure of 55-60 mmHg. Normal estimated central venous pressure. The left atrium is severely dilated, right atrium was moderately dilated. Trace MR, trace TR, trace PI, and aortic valve sclerosis without stenosis. ASSESSMENT: 1. Acute on chronic diastolic congestive heart failure. 2. Elevated pulmonary pressures, borderline right ventricular systolic function. 3. Anemia, improved following 2 units of packed red blood cells. 4. Significant bradycardia in a patient with a bifascicular block. 5. Ongoing generalized weakness, exertional dyspnea, and poor stamina. 6. Multivessel inoperable coronary artery disease status post coronary artery bypass grafting x4 vessels in 1994. 7. Elevated troponin I is likely secondary to myocardial O2 supply demand mismatch. 8. Hypertension. 9. Dyslipidemia. 10. Type 2 diabetes mellitus. 11. Prostate cancer. 12. History of GI bleed, June 2017 as described above. PLAN: 1. The patient appears to be diuresing well. Continue IV Bumex daily. 2. Continue to closely monitor daily I's and O's, body weights. 3. Ideally, we would like to get his hemoglobin above 10 due to his underlying inoperable CAD. I have written for another transfusion for 1 unit of packed red blood cells. Pretreat with Tylenol and Benadryl. 4. Continue iron supplementation. 5. Discontinue atenolol as per boiler operator. 6. Continue aspirin 81 mg daily and Plavix 75 mg daily. 7. Continue HCTZ 25 mg daily. 8. Continue Cozaar 100 mg daily. 9. Protonix 40 mg daily for GI prophylaxis. 10. Continue potassium chloride at current dose. 11. Consult physical therapy for deconditioning, generalized weakness. 12. Continue to observe on telemetry over the next 24-48 hours to reevaluate heart rate responsiveness, and baseline bradycardia. 13. We will continue to follow closely. Full description of 08/25/2017 events is documented in my Cardiology progress note dated 08/26/2017 -- patient had increasing periods of confusion, increasing O2 demands to maintain O2 saturations, and progressively declined throughout the day. Abnormal ABG's documented - extra dose of IV Bumex, f/b nebulizer, f/b BiPAP did not improve his clinical appearance. Given IV Narcan 0.4 mg x 2 - did not improve although SpO2 improved. Patient transferred to ICU and Critical Care Medicine consult was obtained. Dr. Young was involved in this patient's care. [facility]
[2017-08-25] MEDS ORDERED: NURSING VERBAL MED ORDER ONE ×4 (14:00→20:15)
[2017-08-25] MEDS ORDERED: LEVALBUTEROL 1.25MG/3ML NEB INH ONE (14:15)
[2017-08-25] MEDS ORDERED: BUMETANIDE IV 1 MG in SYRINGE 0 ML IV ONE (14:15)
[2017-08-25] MEDS ORDERED: ALBUT/IPRATROP 3MG/0.5MG NEB 3 ML VIAL INH PRN (17:00)
[2017-08-25] MEDS: ALBUT/IPRATROP 3MG/0.5MG NEB 3 ML VIAL INH SCH ×2 (17:06→19:01)
[2017-08-25] MEDS: DUTASTERIDE 0.5MG PO SCH (18:02)
[2017-08-25] MEDS ORDERED: NALOXONE HCL 0.4 MG/1 ML VIAL/CARP ONE ×2 (19:46→19:59)
--- NOTE | 2017-08-25 20:17 | DIAGNOSTIC IMAGING REPORT ---
CHEST ONE VIEW PORTABLE HISTORY: respiratory failure, respiuratory acidosis COMPARISON: Chest 08/23/2017. FINDINGS: No pneumothorax. No pleural effusions. A few bibasilar linear densities suggestive of subsegmental atelectasis. The heart remains mildly enlarged. There are post sternotomy changes. Pulmonary vascular congestion has resolved. IMPRESSION: 1. Stable mild cardiomegaly. 2. The pulmonary vascular congestion has resolved in the interval. Electronically signed by: Ventura Magallon M.D. 08/25/2017 8:16 PM Dictated Date/Time: 08/25/2017 8:15 PM
[2017-08-25 21:10] LABS: BASO % 0.3 %; BASO ABS # 0.02 K/uL (0-0.2); EOS % 1.1 %; EOS ABS # 0.08 K/uL (0-0.5); HEMATOCRIT 35.2 % (42-52); HEMOGLOBIN 11.1 g/dL (14.0-18.0); IG# 0.02 K/uL (0.00-0.02); LYMPH % 8.9 %; LYMPH ABS # 0.63 K/uL (1.2-3.4); MEAN CELL VOLUME 88.9 fL (80-100); MEAN PLATELET VOLUME 9.3 fL (7.4-10.4); MONO % 8.2 %; MONO ABS # 0.58 K/uL (0.11-0.59); NEUT % 81.2 %; NEUT ABS # 5.78 K/uL (1.4-6.5); PLATELET COUNT 240 K/uL (130-400); RED CELL DISTRIBUTION WIDTH CV 15.1 % (11.5-14.5); RED CELL DISTRIBUTION WIDTH SD 48.9 fL (36.4-46.3); RETIC COUNT % 1.8 % (0.5-2.0); WHITE BLOOD COUNT 7.11 K/uL (4.8-10.8)
[2017-08-25] MEDS ORDERED: OPTIRAY 320 IV PRN (21:30)
[2017-08-25 21:48] LABS: ALBUMIN 3.2 gm/dl (3.4-5.0); CALCIUM 8.8 mg/dl (8.5-10.1); CREATININE 1.72 mg/dl (0.60-1.40); PHOSPHORUS 5.3 mg/dl (2.5-4.9); POTASSIUM 3.9 mmol/L (3.5-5.1); TOTAL PROTEIN 7.3 gm/dl (6.4-8.2)
[2017-08-25 21:54] LABS: MEAN CORPUSCULAR HGB CONC 31.5 g/dl (32-36)
[2017-08-25] MEDS ORDERED: HEPARIN IV LOW DOSE NO BOLUS SCH (22:15)
[2017-08-25] MEDS ORDERED: ICU PROTOCOL FOR HYPERGLYCEMIA PRN (22:15)
--- NOTE | 2017-08-25 22:22 | Critical Care Consultation ---
Critical Care Consultation Date of Consultation: Aug 25, 2017. Attending Physician: Rodger Ochoa MD Reason for Consultation: New oxygen requirement, altered mental status, hypercarbic respiratory failure History of Present Illness Patient is a 82-year-old gentleman who presented to [facility] emergency department complaining of worsening dyspnea. Recently in June he had a gastrointestinal bleeding and bladder infection and has had an anemia since that time. In the emergency department he was diagnosed with likely acute on chronic heart failure. He was started on diuretics and admitted to the hospital. Additional history obtained by the internal medicine team patient admitted to being noncompliant with his diuretics and recent weight gain. His reported intermittent slurred speech so TIA and metabolic causes were also considered. Today the patient has been on increasing oxygen requirements and then most recently this evening his oxygen saturation dropped into the mid 80s and he became more lethargic. He had received a mildly increased dose of oxycodone immediate release, it is noted that he does take long-acting OxyContin as well. Patient was transfused a total of 3 units of blood his hemoglobin is now increased to 10. He also received an echocardiogram. I compared these findings with an echocardiogram obtained in June 2017, most notably the patient's right ventricle is dilated with borderline RV function. He now has moderate pulmonary hypertension PASP 55-60 mmHg. The right ventricle is now moderately dilated. Echocardiogram obtained June 12, 2017 revealed a right ventricle grossly normal in size with normal systolic function. Per the patient's attending physician as well as covering physician assistant manager bilingual patient had become very somnolent and did not show significant improvement despite 2 doses of 0.4 mg Narcan for possible narcosis secondary to opiate administration. The patient's renal function is within normal limits. During my evaluation the patient was alert and oriented 3 pleasant and conversant. He was denying any chest pain or shortness of breath he did not like having the BiPAP strapped on his face. It was discontinued and the patient was placed on a 6 L oxygen mask. I performed a limited bedside thoracic ultrasound with two-point compression test as well as limited bedside echocardiogram. Past Medical/Surgical History Acute on chronic diastolic congestive heart failure Anemia Elevated troponin Lower gastrointestinal bleeding Prostate cancer History of BPH with urinary obstruction Osteoarthritis Coronary artery disease bypass grafting Hypertension History of myocardial infarction Family History Diabetes mellitus FH: prostate cancer FHx: colon cancer Hypertension Social History Smoking Status: Former Smoker (Quit 30 years ago) Smokeless Tobacco Use: No Alcohol Use: none Drug Use: none Marital Status: Housing Status: lives with family Occupation Status: retired Allergies Coded Allergies: Adhesives (Verified Allergy, Unknown, DRAPES TORE PT'S SKIN OFF, 08/23/17) Bee Venom (Verified Allergy, Unknown, SWELLING, 08/23/17) Diclofenac (Verified Allergy, Unknown, 08/23/17) Naproxen (Verified Allergy, Unknown, 08/23/17) Amoxicillin (Verified Adverse Reaction, Unknown, CAUSES DIARRHEA, 08/23/17) Celecoxib (Verified Adverse Reaction, Unknown, gi bleed, 08/23/17) Home Medications Scheduled Alfuzosin Hcl (Uroxatral), 10 MG PO QAM Aspirin (Aspirin Ec), 81 MG PO DAILY Atenolol (Atenolol), 50 MG PO QAM Atorvastatin (Lipitor), 40 MG PO HS Calcium Carbonate-Vitamin D (Calcium), 2 TAB PO DAILY Clopidogrel (Plavix), 75 MG PO DAILY Dutasteride (Avodart), 0.5 MG PO QAM Esomeprazole Magnesium (Nexium), 40 MG PO QPM Glimepiride (Glimepiride), 2 MG PO BID Hydrochlorothiazide (Hydrochlorothiazide), 25 MG PO QAM Isosorbide Mononitrate Ext Rel (Imdur Ext Rel), 180 MG PO QPM Losartan Potassium (Cozaar), 100 MG PO QAM Metformin Hcl (Glucophage), 1,000 MG PO BID Metformin Hcl (Glucophage), 500 MG PO WITH LUNCH Multivitamin (Multivitamin), 1 TAB PO QAM Niacin (Niacin), 2,000 MG PO QPM Oxycodone HCl (Oxycodone HCl ER), 10 MG PO BID Potassium Chloride (Potassium Chloride Er), 20 MEQ PO QAM Scheduled PRN Bumetanide (Bumex), 2 TAB PO DAILY PRN for edema Nitroglycerin (Nitrostat), 0.4 MG UT UD PRN for Chest Pain Oxycodone Ir (Roxicodone Ir), 5 MG PO Q6H PRN for Pain Current Inpatient Medications Current Inpatient Medications Medications (Trade) Dose Ordered Sig/Jez Route Start Time Stop Time Status Last Admin Dose Admin Enoxaparin Sodium (Lovenox Inj) 40 mg Q24H SC 08/23/17 21:00 09/22/17 20:59 08/24/17 20:46 40 MG Acetaminophen (Tylenol Tab) 650 mg Q4H PRN PO 08/23/17 17:00 09/22/17 16:59 Al Hydrox/Mg Hydrox/Simethicone (Maalox Max Susp) 15 ml Q4H PRN PO 08/23/17 17:00 09/22/17 16:59 Magnesium Hydroxide (Milk Of Magnesia Susp) 30 ml Q12H PRN PO 08/23/17 17:00 09/22/17 16:59 Ondansetron HCl (Zofran Inj) 4 mg Q6H PRN IV 08/23/17 17:00 09/22/17 16:59 Polyethylene (Miralax Powder Packet) 17 gm DAILY PRN PO 08/23/17 17:00 09/22/17 16:59 Glucose (Glucose 40% Gel) 15-30 GRAMS 15 GRAMS... UD PRN PO 08/23/17 17:00 09/22/17 16:59 Glucose (Glucose Chew Tab) 4-8 Tablets 4 Tabl... UD PRN PO 08/23/17 17:00 09/22/17 16:59 Dextrose (Dextrose 50% 50ML Syringe) 25-50ML OF 50% DW IV FOR... UD PRN IV 08/23/17 17:00 09/22/17 16:59 Glucagon (Glucagon Inj) 1 mg UD PRN SQ 08/23/17 17:00 09/22/17 16:59 Alfuzosin HCl (Uroxatral Tab) 10 mg QAM PO 08/24/17 09:00 09/23/17 08:59 08/25/17 07:51 10 MG Aspirin (Ecotrin Tab) 81 mg DAILY PO 08/24/17 09:00 09/23/17 08:59 08/25/17 07:51 81 MG Atorvastatin Calcium (Lipitor Tab) 40 mg HS PO 08/23/17 21:00 09/22/17 20:59 08/24/17 20:45 40 MG Clopidogrel Bisulfate (plAVix TAB) 75 mg DAILY PO 08/24/17 09:00 09/23/17 08:59 08/25/17 07:50 75 MG Hydrochlorothiazide (Hydrochlorothiazide Tab) 25 mg QAM PO 08/24/17 09:00 09/23/17 08:59 08/25/17 07:52 25 MG Isosorbide Mononitrate (Imdur Ext Rel Tab) 180 mg QPM PO 08/23/17 21:00 09/22/17 20:59 08/24/17 20:45 180 MG Losartan Potassium (coZAAR TAB) 100 mg QAM PO 08/24/17 09:00 09/23/17 08:59 08/25/17 07:51 100 MG Multivitamins (Multivitamin Tab) 1 tab QAM PO 08/24/17 09:00 09/23/17 08:59 08/25/17 07:51 1 TAB Nitroglycerin (Nitrostat Tab) 0.4 mg UD PRN UT 08/23/17 17:00 09/22/17 16:59 Pantoprazole Sodium (Protonix Tab) 40 mg QAM PO 08/24/17 09:00 09/23/17 08:59 08/25/17 07:51 40 MG Potassium Chloride (Klor-Con Tab) 20 meq QAM PO 08/24/17 09:00 09/23/17 08:59 08/25/17 07:52 20 MEQ Bumetanide 1 mg/ Syringe 4 ml @ 4 mls/min DAILY IV 08/24/17 09:00 09/23/17 08:59 08/25/17 07:50 4 MLS/MIN Insulin Aspart (novoLOG ASPART) SLIDING SCALE G... ACHS SC 08/23/17 21:00 09/22/17 20:59 08/25/17 12:01 11 UNITS Ferrous Sulfate (Feosol Tab) 325 mg QAM PO 08/24/17 09:00 09/23/17 08:59 08/25/17 07:50 325 MG Dutasteride (Avodart) 0.5 mg QAM PO 08/25/17 15:00 09/24/17 14:59 08/25/17 18:02 0.5 MG Albuterol/ Ipratropium (Duoneb) 3 ml Q4R INH 08/25/17 17:00 09/24/17 16:59 08/25/17 19:01 3 ML Albuterol/ Ipratropium (Duoneb) 3 ml Q2H PRN INH 08/25/17 17:00 09/24/17 16:59 Review of Systems A 10 point review of systems has been reviewed and is otherwise negative. Constitutional: + fatigue (Chronic since June), No fever, No chills, No sweats, No weight loss Eyes: No worsening of vision, No eye pain, No redness, No discharge, No diplopia, No problem reported Respiratory: + dyspnea on exertion, No cough, No sputum, No wheezing, No dyspnea at rest, No hemoptysis Cardiovascular: + edema, No chest pain, No orthopnea, No PND, No claudication Abdomen: No pain, No nausea, No vomiting Musculoskeletal: + joint pain (Chronic osteoarthritis pain), No muscle pain, No calf pain Genitourinary - Male: + urinary hesitancy Neurologic: No memory loss, No paralysis Endocrine: No fatigue, No excessive urination Hematologic / Lymphatic: No abnormal bleeding/bruising Physical Exam Date Time Temp Pulse Resp B/P (MAP) Pulse Ox O2 Delivery O2 Flow Rate FiO2 08/25/17 19:01 64 20 98 BiPAP/CPAP 6.0 08/25/17 19:01 64 98 6.0 08/25/17 18:58 37.0 65 20 128/62 (84) 97 BiPAP 6.0 08/25/17 18:38 82 90 6.0 08/25/17 17:06 76 20 89 Nasal Cannula 5.0 08/25/17 16:08 36.6 49 16 138/72 92 5.0 08/25/17 16:00 91 Nasal Cannula 5.0 08/25/17 15:07 36.3 54 18 122/65 94 5.0 08/25/17 14:21 63 18 95 Nasal Cannula 5.0 08/25/17 14:11 36.9 55 19 109/64 92 5.0 08/25/17 13:44 36.6 53 19 118/60 93 5.0 08/25/17 13:26 36.6 55 19 100/56 87 3.0 08/25/17 12:00 94 Nasal Cannula 3.0 08/25/17 11:41 36.5 55 20 122/69 (86) 94 Room Air 08/25/17 08:00 93 Nasal Cannula 3.0 08/25/17 07:31 37.2 65 18 151/76 (101) 92 Room Air 08/25/17 04:00 Nasal Cannula 3.0 08/25/17 03:43 37.0 73 16 143/77 (99) 90 3.0 08/25/17 00:05 37.2 70 16 138/72 (94) 91 3.0 08/25/17 00:00 Nasal Cannula 3.0 General Appearance: well-appearing, no apparent distress Head: normocephalic, atraumatic Eyes: PERRLA, no discharge, EOMI ENT: normal mouth exam Neck: normal range of motion, no tenderness, trachea midline, no stridor, supple, no thyromegaly, no lymphadenopathy, no meningismus Respiratory: breath sounds normal, clear to auscultation, no respiratory distress Cardiovasular: regular rate/rhythm, normal S1S2 Abdomen: non tender, normal bowel sounds, no rebound, no masses, normal rectal exam (In presence of family law paralegal Megan RN), no hemorrhoids Genitourinary - Male: other (Funk catheter present) Back: normal inspection, no midline tenderness Upper Extremities: no edema Lower Extremities: edema (+1) Edema: Bilateral LE (1+) Pulses: femoral (R) (2+), femoral (L) (2+) Neuro: alert, oriented x 3, normal motor exam, normal sensation Psychiatric: normal affect Laboratory Results Last 24 Hours Test 08/25/17 05:17 08/25/17 06:30 08/25/17 11:03 08/25/17 16:17 White Blood Count 6.19 K/uL Red Blood Count 3.56 M/uL Hemoglobin 9.9 g/dL Hematocrit 31.2 % Mean Corpuscular Volume 87.6 fL Mean Corpuscular Hemoglobin 27.8 pg Mean Corpuscular Hemoglobin Concent 31.7 g/dl RDW Standard Deviation 49.3 fL RDW Coefficient of Variation 15.3 % Platelet Count 236 K/uL Mean Platelet Volume 9.3 fL Sodium Level 140 mmol/L Potassium Level 3.6 mmol/L Chloride Level 97 mmol/L Carbon Dioxide Level 35 mmol/L Anion Gap 8.0 mmol/L Blood Urea Nitrogen 33 mg/dl Creatinine 1.24 mg/dl Est Creatinine Clear Calc Drug Dose 59.8 ml/min Estimated GFR () 61.9 Estimated GFR (Non- 53.4 BUN/Creatinine Ratio 26.4 Random Glucose 141 mg/dl Calcium Level 8.5 mg/dl Magnesium Level 1.9 mg/dl Bedside Glucose 154 mg/dl 248 mg/dl 138 mg/dl Test 08/25/17 18:31 08/25/17 20:08 08/25/17 20:53 08/25/17 20:59 Arterial Blood pH 7.32 Arterial Blood Partial Pressure CO2 72 mmHg Arterial Blood Partial Pressure O2 68 mm/Hg Arterial Blood HCO3 36 mmol/L Arterial Blood Oxygen Saturation 90.0 % Arterial Blood Base Excess 8.2 mEq/L Arterial Blood Gas Delivery 6L Mikel Test POS NA Bedside Glucose 162 mg/dl Blood Gas Sample Site R Femoral Bedside Blood Gas pH (LAB) 7.44 Bedside Blood Gas pCO2 (LAB) 53 mmHg Bedside Blood Gas pO2 (LAB) 49 mmHg Bedside Blood Gas HCO3 (LAB) 36 meq/L Bedside Blood Gas Total CO2 38 mEq/l Bedside Blood Gas Base Excess (LAB) 12.0 meq/L Bedside Blood Gas O2 Saturation 85.0 % Oxygen Delivery Device NonRb Mask Bedside FiO2 100 % White Blood Count 7.11 K/uL Red Blood Count 3.96 M/uL Hemoglobin 11.1 g/dL Hematocrit 35.2 % Mean Corpuscular Volume 88.9 fL Mean Corpuscular Hemoglobin 28.0 pg Platelet Count 240 K/uL Mean Platelet Volume 9.3 fL Neutrophils (%) (Auto) 81.2 % Lymphocytes (%) (Auto) 8.9 % Monocytes (%) (Auto) 8.2 % Eosinophils (%) (Auto) 1.1 % Basophils (%) (Auto) 0.3 % Neutrophils # (Auto) 5.78 K/uL Lymphocytes # (Auto) 0.63 K/uL Monocytes # (Auto) 0.58 K/uL Eosinophils # (Auto) 0.08 K/uL Basophils # (Auto) 0.02 K/uL RDW Standard Deviation 48.9 fL RDW Coefficient of Variation 15.1 % Immature Granulocyte % (Auto) 0.3 % Immature Granulocyte # (Auto) 0.02 K/uL Absolute Reticulocyte Count 0.07 10^6/uL Percent Reticulocyte Count 1.8 % Diagnostic Results I have reviewed the chest x-ray dated August 25, 2017 as well as the radiology report Assessment & Plan Reason Critically Ill: Patient critically ill due to acute hypoxic and hypercarbic respiratory failure PLAN: Neuro: Intermittent confusion * Limit narcotics when able * No focal deficit at this time, doubt CVA. * Suspect this also may be related to hypercarbia and probable obesity hypoventilation syndrome * Decreased narcotic dosing to 5 mg oxycodone IR every 8 hours to restart tomorrow morning Resp: Acute hypoxic and hypercarbic respiratory failure * Patient has negative two-point compression test but a type a profile on long ultrasound * History of prostate cancer underwent radiation treatment in the end of 2017 * Given the new finding of RV changes will obtain VQ scan patient cannot undergo CT scan given JORDEN * Supplemental oxygen * May require bilevel ventilation given hypercarbia CV: History of coronary artery disease History of congestive heart failure * Patient is currently 2 L diuresed since arrival, oxygen requirement has not improved * IVC shows respiratory variation less than 50%, greater than 25% Fluids/Renal: JORDEN * Patient has had 0.48 increase in creatinine * Holding additional diuretics at this time * Holding BALTAZAR inhibitor, as well as potassium * Patient at risk for increasing narcotic metabolites given renal insufficiency History prostate cancer * Funk currently in place * Continue current prostate meds ID: Afebrile Normal white count Urine unremarkable GI/Nutrition: Rectal exam grossly normal * Sent guaiac Heme: Anemia * Checking reticulocyte count * Since starting heparin infusion will check serial H&H * Holding 2 units of blood * History of recent GI bleed, if the patient starts to bleed may need to consider IVC filter * Reviewed outpatient labs normally takes swapna vincent Endocrine: Hyperglycemia Poorly controlled type 2 diabetes * ICU protocol * Currently on aspart coverage * Normally takes metformin, hold I have personally spent 90 minutes of critical care time in the direct management of this patient. This is a life/limb threatening event. This includes time spent evaluating patient, direct bedside care, chart review, placing orders, interpretation of diagnostic studies, discussion with consultants, patient, and/or family members regarding treatment decisions, as well as other required patient management activities. This time is exclusive of all separately billable procedures, and teaching time and separate from and in addition to any other critical care service time.
[2017-08-25 22:29] LABS: PTT PATIENT 27.2 SECONDS (21.0-31.0)
[2017-08-25] MEDS: HEPARIN 25,000 UNIT/500ML D5W 500 ML IV PRN (22:37)
--- NOTE | 2017-08-25 22:42 | Procedure Note ---
Procedure Note Date of Service Aug 25, 2017. Procedure Note Critical Care Medicine Point of Care Bedside Ultrasound Procedure: Limited Bedside Lung Ultrasound Procedure Date: August 25, 2017 Indication: Hypoxic hypercarbic respiratory failure, new oxygen requirement Attending: Tamika Ferguson DO Resident/Physician Veneer Slicing Machine Operator: Not applicable Organs Examined: Lung BLUE point (upper), BLUE point (lower), Phrenic Point (axillary), PLAPS point ( posterior) A lines visualized: Yes, Hemithorax: Bilateral B lines visualized: No, Hemithorax: Bilateral Lung Sliding: No, Hemithorax: Bilateral Tissue-like Sign: No, Hemithorax: Bilateral Shred Sign: No, Hemithorax: Bilateral Quad Sign: No, Hemithorax: Bilateral Sinusoid Sign: No, Hemithorax: Bilateral Type of effusions: No, Hemithorax: Bilateral Interpleural distance: Not applicable Impression: Type a profile in bilateral lung Plan: We will obtain advanced chest imaging to exclude venous thromboembolism Images obtained are saved for permanent record Critical [facility] Medicine Point of Care Bedside Ultrasound Procedure: Procedural Ultrasound Procedure Date: August 25, 2017 Indication: New oxygen requirement hypoxia rule out DVT/venous thromboembolism Attending: Tamika Ferguson DO Resident/Physician Veneer Slicing Machine Operator: Not applicable Organs Examined: Bilateral two-point compression test of the lower extremities Artery AND Vein visualized: Bilateral common femoral and bilateral popliteal arteries and veins visualized Compressible Vein: All veins are completely compressible without evidence of thrombus Impression: Normal 2 point compression test Plan: Advanced imaging given totality of clinical signs and concern for occult venous thromboembolism Images obtained are saved for permanent record Critical [facility] Medicine Point of Care Bedside Ultrasound Procedure: Limited Transthoracic Echocardiogram Indication: Hypoxia, CHF Date: August 25, 2017 Attending: Tamika Ferguson DO Fellow/Resident/Physician Veneer Slicing Machine Operator: Not applicable Organs Examined: Heart, Vascular system Pericardial fluid: Absent Right ventricle size: Difficult to visualize LV Contractility: Normal RV Contractility: Difficult to visualize IVC size: SIZE in CM 2.05 cm (<1.2 cm predicts right atrial pressure < 10 mmHg) Mechanically ventilated breaths: No Hemodynamic Status: Heart rate 65 blood pressure 95/76 IVC respiratory variation % Spontaneous breaths: Yes Intravascular volume status: Euvolemic Impression: Euvolemic IVC, difficult to visualize right ventricle, grossly normal left ventricular function Plan: Clinical concern for right ventricular failure Images obtained are saved for permanent record
[2017-08-26] VITALS (24 sets, daily range): BP systolic 95–156; BP diastolic 48–74; PULSE 48–87; TEMP 36.7–37.2; O2SAT 90–100
[2017-08-26] MEDS: ATORVASTATIN 40 MG TAB PO SCH ×2 (00:09→21:48)
[2017-08-26] MEDS: ISOSORBIDE MONONITRATE 60 MG TABCR PO SCH ×2 (00:10→21:49)
[2017-08-26 02:22] LABS: HEMATOCRIT 34.7 % (42-52); HEMOGLOBIN 10.7 g/dL (14.0-18.0)
[2017-08-26] MEDS: ALBUT/IPRATROP 3MG/0.5MG NEB 3 ML VIAL INH SCH ×6 (04:01→22:50)
[2017-08-26 04:53] LABS: HEMATOCRIT 33.6 % (42-52); HEMOGLOBIN 10.3 g/dL (14.0-18.0); MEAN CELL VOLUME 91.1 fL (80-100); MEAN CORPUSCULAR HEMOGLOBIN 27.9 pg (25-34); MEAN CORPUSCULAR HGB CONC 30.7 g/dl (32-36); MEAN PLATELET VOLUME 9.9 fL (7.4-10.4); PLATELET COUNT 229 K/uL (130-400); RED CELL DISTRIBUTION WIDTH CV 15.1 % (11.5-14.5); RED CELL DISTRIBUTION WIDTH SD 50.9 fL (36.4-46.3); WHITE BLOOD COUNT 6.18 K/uL (4.8-10.8)
[2017-08-26 05:13] LABS: CALCIUM 8.4 mg/dl (8.5-10.1); CREATININE 1.51 mg/dl (0.60-1.40); POTASSIUM 3.5 mmol/L (3.5-5.1)
[2017-08-26] MEDS ORDERED: HEPARIN IV BOLUS 4,500 UNIT in SYRINGE 0 ML IV ONE ×2 (05:30→13:15)
--- NOTE | 2017-08-26 07:05 | DIAGNOSTIC IMAGING REPORT ---
ULTRASOUND BILATERAL LOWER EXTREMITY VENOUS CLINICAL HISTORY: Hypoxia. COMPARISON STUDY: Bilateral lower extremity venous ultrasound dated 07/11/2014. TECHNIQUE: Real-time, grayscale, and color Doppler sonography of the deep veins of the right and left lower extremity was performed from the inguinal crease to the calf. Compression and augmentation were utilized. FINDINGS: There is no sonographic evidence of deep venous thrombosis identified in the right or left lower extremity. The common femoral, superficial femoral, and popliteal veins are patent and normally compressible bilaterally. The greater saphenous vein and the profunda femoris vein at the junction with the common femoral vein are clear in both legs. The visualized calf veins are patent bilaterally. IMPRESSION: There is no sonographic evidence of deep venous thrombosis identified in the right or left lower extremity. Electronically signed by: Thiago Padilla M.D. 08/26/2017 7:04 AM Dictated Date/Time: 08/26/2017 7:02 AM
--- NOTE | 2017-08-26 08:29 | Clinical Documentation Query ---
RAEGAN Johnson : CLINICAL DOCUMENTATION QUERY Patient is an 82 year old male admitted for evaluation and treatment of SOB and weakness. Subsequently transferred to ICU for acute hypoxic and hypercarbic respiratory failure. Estimated GFR on admission of 56 ml/min associated with a creatinine of 1.18 mg/dl. With diuresis, this value increased to 1.72 mg/dl associated with an estimated GFR of only 36 ml/min. Additional diuretics have been held. Monitoring ongoing with serial chemistries. As appropriate, consider documentation as suggested below in order to capture these important clinical diagnoses. Thank you. In your clinical opinion is this patient being managed for: ( x ) JORDEN on CKD stage 3 ( ) Not Agree ( ) Other explanation of clinical findings (Please Explain) ( ) Unable to determine (Please Define) ( ) Need to Discuss The medical record reflects the following clinical findings, treatment, and risk factors. Clinical Indicators: As above Treatment:Additional diuretics have been held. Monitoring ongoing with serial chemistries Risk Factors: Acute on chronic diastolic CHF, age, diuretic use, other medications Please clarify and document your clinical opinion in the progress notes and discharge summary. Terms such as "probable", "suspected", "likely", "questionable", "possible", or "still to be ruled out" are acceptable. IF IN AGREEMENT, YOU MUST DOCUMENT ABOVE DIAGNOSTIC STATEMENT IN DAILY PROGRESS NOTES AND DISCHARGE SUMMARY. This document is not part of the patient's record. Thank You, Alex Cooper, JIM [phone]
[2017-08-26] MEDS ORDERED: POTASSIUM CHLORIDE 10 MEQ TABCR PO ONE (09:00)
[2017-08-26] MEDS: DUTASTERIDE 0.5MG PO SCH (09:23)
[2017-08-26] MEDS: INSULIN ASPART 100 UNITS/ML 3 ML PEN SC SCH ×5 (09:23→21:52)
[2017-08-26] MEDS: ASPIRIN 81 MG ECTAB PO SCH (09:24)
[2017-08-26] MEDS: PANTOprazole SOD 40 MG TAB PO SCH (09:24)
[2017-08-26] MEDS: MULTIVITAMIN TAB PO SCH (09:25)
[2017-08-26] MEDS: CLOPIDOGREL BISULFATE 75 MG TAB PO SCH (09:25)
[2017-08-26] MEDS: ALFUZosin TAB 10 MG TAB PO SCH (09:25)
[2017-08-26] MEDS: FERROUS SULFATE 325 MG TAB PO SCH ×2 (09:25→16:16)
--- NOTE | 2017-08-26 10:06 | CARDIOLOGY PROGRESS NOTE ---
DATE: 08/26/2017 HISTORY OF PRESENT ILLNESS: Mr. 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 Workup at that time revealed a bleeding gastric polyp, which was clipped and colonoscopy revealed peyton blood, suspected to be diverticular in origin. I was covering on the hospitalists service and followed this patient through the weekend. He was admitted on 08/23/2017 for acute on chronic diastolic congestive heart failure, which was likely secondary to diuretic noncompliance (the patient did not take his Bumex on days that he went for radiation treatments or had doctors' appointments) and he was only getting about 3 doses per week. Nonetheless, he did not look significantly volume overloaded, but we did diurese about 2 liters of fluid off him. He was still anemic with a hemoglobin of 8.1 on 08/24/2017, so I gave him 2 units of packed red blood cells on 08/24. He did not feel any significant improvement in his fatigue and he was still having dyspnea with exertion. Therefore, on the morning of 08/25/2017, his hemoglobin was still less than 10. So, we gave him 1 additional unit of packed red blood cells. That is the last that he recalls yesterday, although I saw him thereafter on 3 separate occasions and he appeared to be lucid at least for the first 2 visits. The nurse contacted me about the patient's changes in mental status, his increasing supplemental oxygen demands, and he complained of not feeling well. He received an additional dose of IV Bumex 1 mg and then later in the afternoon , received a nebulizer treatment. Neither of these seemed to help. Ultimately, the patient went up to 6 liters oxygen via nasal cannula and his condition continued to decline. I was contacted by the nurse and the patient was placed on BiPAP with supplemental oxygen. I came back to check on him a short time later and he was very difficult to arouse, although he would open up his eyes and speak briefly. He did not appear to be coherent or oriented. There was twitching of his upper extremities as well. His SpO2 level was in the mid 80s to low 90s during that timeframe. The patient was given 2 doses of Narcan and did not have any significant improvement in his mental status in the ensuing 10-15 minutes. So, decision was made to transfer him to the ICU. Please note that he had blood gases drawn yesterday at approximately 06:30 p.m. His ABG pH was 7.32, CO2 was 72, pO2 was 68, and pHCO3 was 36 on 6 liters oxygen. After being sent to the ICU, followup ABG showed a pH of 7.44, pCO2 of 53, pO2 of 49, and an HCO3 of 36 on 100% oxygen on a nonrebreather mask. The patient apparently became more coherent shortly after arriving at the ICU and his BiPAP was ultimately discontinued. The patient is currently being seen in room 104 and he offers no complaints. He denies any shortness of breath at this time and is feeling well overall. He denies any chest pain, heaviness, tightness, or pressure. He denies any orthopnea or PND. Denies any palpitations, syncope, or near syncope. PHYSICAL EXAMINATION: VITAL SIGNS: Temperature is 36.7 degrees axillary, pulse is 68 and regular, respiratory rate is 18, and SpO2 is 117/50. He is no longer on BiPAP and his current oxygen saturation is in the low 90s (ranging between 90% and 92%). GENERAL: The patient is in no acute distress. He is sitting up in bed, awake, alert, and interactive. HEENT: Head is atraumatic and normocephalic. EOMs intact. Sclerae are anicteric. Face is symmetric. No perioral cyanosis. Mucous membranes moist. NECK: Without JVD. Carotid upstrokes +2 bilaterally. CHEST AND LUNGS: Clear to auscultation throughout all lung duque. No wheezes, rales or rhonchi. CARDIOVASCULAR: S1 and S2 are regular, distant, without obvious murmur, gallop or rub. PMI is nondisplaced. No lifts, heaves, or thrills. No abdominal, aortic or renal bruits. ABDOMEN: Bowel sounds present. No masses, organomegaly or tenderness. EXTREMITIES: Without clubbing or cyanosis. There is nonpitting edema to the level of the proximal tibia. Calves are soft and nontender. Intact posterior tibial and radial pulses bilaterally. NEUROLOGIC: The patient is awake, alert and oriented. Pleasant and cooperative. Answers questions appropriately. His speech is clear. Normal movement in all 4 extremities. LABORATORY DATA: Sodium level is 140 mmol/L, potassium is 3.5 mmol/L, BUN is 41 mg/dL, and creatinine 1.51. Random glucose 157 mg/dL. Troponin I is 0.199 ng/mL (this is much lower than what he presented with). ProBNP elevated at 1938. White blood cell count 6.18, hemoglobin 10.3 g/dL, hematocrit 33.6% and platelet count 229,000. ASSESSMENT: 1. Acute hypoxic and hypercarbic respiratory failure, suspect some underlying obesity hypoventilation syndrome along with the narcotics that he received may have caused this. 2. Intermittent confusion -- has improved. 3. Diastolic congestive heart failure, appears to be approaching a euvolemic state. 4. Coronary artery disease status post coronary artery bypass graft x4 vessels remotely. 5. Acute renal insufficiency -- improved today. 6. Hypertension. 7. Dyslipidemia. 8. Type 2 diabetes mellitus. 9. History of GI bleed in June 2017. 10. Anemia, improved following 3 units of packed red blood cells. 11. Borderline right ventricular systolic function and elevated pulmonary pressures. 12. 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 PLAN: 1. The patient appears significantly improved today. He still requires supplemental oxygen, but his mental status is at baseline. 2. Continue to closely monitor daily I's and O's and body weights. 3. Maintain hemoglobin above 10 due to his underlying inoperable multivessel CAD. 4. Continue holding Atenolol due to relative bradycardia. 5. Continue Aspirin 81 mg daily and Plavix 75 mg daily. 6. Continue DuoNeb nebulizer treatments. 7. Continue Protonix 40 mg q.a.m. for GI prophylaxis. 8. Continue Lipitor 40 mg daily. 9. Continue Imdur 180 mg daily. 10. Cozaar, Hydrochlorothiazide, and Bumex have been held. 11. Management of opiate analgesics as per Dr. Florence. He is going to discontinue OxyContin and changed his opiate medication to Percocet 5/325 one tablet every 8 hours as needed for pain. 12. The patient is stable from a cardiac standpoint for transfer to the telemetry floor. HARINI
--- NOTE | 2017-08-26 11:05 | DIAGNOSTIC IMAGING REPORT ---
NUCLEAR PULMONARY VENTILATION/PERFUSION SCAN CLINICAL HISTORY: Hypoxia. COMPARISON STUDY: Chest x-ray dated 08/25/2017. TECHNIQUE: Initially, ventilation images of both lungs are obtained following the inhalation of 32.9 mCi of aerosolized technetium 99m DTPA. Subsequently, perfusion images of both lungs were obtained following the IV administration of 5.1 mCi of technetium 99m MAA. Ventilation and perfusion images were acquired in the anterior, posterior, and oblique projections. FINDINGS: A chest x-ray performed 08/25/2017 shows marked cardiomegaly with mild pulmonary vascular congestion. No airspace consolidation or large pleural effusion is identified. The ventilation of both lungs is markedly heterogeneous. Cephalization of tracer within the central airways suggests obstructive physiology. Tracer seen within the distal esophagus. Perfusion is heterogeneous. No segmental perfusion defects are clearly identified. IMPRESSION: Findings are considered low probability for pulmonary embolus. Electronically signed by: Thiago Padilla M.D. 08/26/2017 11:04 AM Dictated Date/Time: 08/26/2017 11:02 AM
[2017-08-26] MEDS: OXYCODONE/ACETAMINOPHEN 5-325 TAB PO PRN ×2 (11:18→21:58)
[2017-08-26 11:39] LABS: PTT PATIENT 39.1 SECONDS (21.0-31.0)
[2017-08-26] MEDS: HEPARIN 25,000 UNIT/500ML D5W 500 ML IV PRN (13:20)
[2017-08-26 14:15] LABS: HEMATOCRIT 32.4 % (42-52)
--- NOTE | 2017-08-26 16:09 | Critical Care Progress Note ---
Critical Care Progress Note Date of Service Aug 26, 2017. Attending Dr. Lockhart Subjective No events overnight, the patient is fully awake now following commands and answering questions, no altered mental status was reported, the patient was place on the BiPAP for short period of time. In review of his history, the patient was recently admitted with GI bleeding last month, the patient was started again on heparin drip on this presentation due to increased shortness of breath and concerns for venal thrombo-embolic event. Workup is in progress and V/Q scan has been pending. Objective August 26 2017 physical exam revealed, O2 saturation of 94% on 4 L, no JVP, S1 -S2 regular rate and rhythm, distant breath sounds bilaterally, abdomen is benign, edema in the periphery. VQ scan was reviewed as well which revealed low probability for venous thrombolic embolic event which is nondiagnostic. Assessment & Plan #1 advanced COPD. Patient apparently is more than [id number] history of smoking 3 packs a day for 25 years. #2 history of CHF. #3 given his history of recent GI bleeding, I will stop the heparin drip and put him on heparin subcutaneous. #4 I will start the patient on long-acting beta agonist and short acting beta agonist as well for COPD. #5 the patient has been prescribed inhalers in the past but he was not really just about them. #6 I would minimize any use of oxycodone or narcotics in this patient who does have low threshold for suppressing his respiratory drive. #[address] Young, appreciate her acceptance of this case to the regular floor. Case discussed with the staff on rounds and details, CCT 35 minutes. Data Medications: Current Inpatient Medications Medications (Trade) Dose Ordered Sig/Jez Route Start Time Stop Time Status Last Admin Dose Admin Acetaminophen (Tylenol Tab) 650 mg Q4H PRN PO 08/23/17 17:00 09/22/17 16:59 Al Hydrox/Mg Hydrox/Simethicone (Maalox Max Susp) 15 ml Q4H PRN PO 08/23/17 17:00 09/22/17 16:59 Magnesium Hydroxide (Milk Of Magnesia Susp) 30 ml Q12H PRN PO 08/23/17 17:00 09/22/17 16:59 Ondansetron HCl (Zofran Inj) 4 mg Q6H PRN IV 08/23/17 17:00 3/18/18 16:59 Polyethylene (Miralax Powder Packet) 17 gm DAILY PRN PO 08/23/17 17:00 09/22/17 16:59 Glucose (Glucose 40% Gel) 15-30 GRAMS 15 GRAMS... UD PRN PO 08/23/17 17:00 09/22/17 16:59 Glucose (Glucose Chew Tab) 4-8 Tablets 4 Tabl... UD PRN PO 08/23/17 17:00 09/22/17 16:59 Dextrose (Dextrose 50% 50ML Syringe) 25-50ML OF 50% DW IV FOR... UD PRN IV 08/23/17 17:00 09/22/17 16:59 Glucagon (Glucagon Inj) 1 mg UD PRN SQ 08/23/17 17:00 09/22/17 16:59 Alfuzosin HCl (Uroxatral Tab) 10 mg QAM PO 08/24/17 09:00 09/23/17 08:59 08/26/17 09:25 10 MG Aspirin (Ecotrin Tab) 81 mg DAILY PO 08/24/17 09:00 09/23/17 08:59 08/26/17 09:24 81 MG Atorvastatin Calcium (Lipitor Tab) 40 mg HS PO 08/23/17 21:00 09/22/17 20:59 08/26/17 00:09 40 MG Clopidogrel Bisulfate (plAVix TAB) 75 mg DAILY PO 08/24/17 09:00 09/23/17 08:59 08/26/17 09:25 75 MG Hydrochlorothiazide (Hydrochlorothiazide Tab) 25 mg QAM PO 08/24/17 09:00 09/23/17 08:59 Future Hold 08/25/17 07:52 25 MG Isosorbide Mononitrate (Imdur Ext Rel Tab) 180 mg QPM PO 08/23/17 21:00 09/22/17 20:59 08/26/17 00:10 180 MG Losartan Potassium (coZAAR TAB) 100 mg QAM PO 08/24/17 09:00 09/23/17 08:59 Future Hold 08/25/17 07:51 100 MG Multivitamins (Multivitamin Tab) 1 tab QAM PO 08/24/17 09:00 09/23/17 08:59 08/26/17 09:25 1 TAB Nitroglycerin (Nitrostat Tab) 0.4 mg UD PRN UT 08/23/17 17:00 09/22/17 16:59 Pantoprazole Sodium (Protonix Tab) 40 mg QAM PO 08/24/17 09:00 09/23/17 08:59 08/26/17 09:24 40 MG Potassium Chloride (Klor-Con Tab) 20 meq QAM PO 08/24/17 09:00 09/23/17 08:59 Future Hold 08/25/17 07:52 20 MEQ Bumetanide 1 mg/ Syringe 4 ml @ 4 mls/min DAILY IV 08/24/17 09:00 09/23/17 08:59 Future Hold 08/25/17 07:50 4 MLS/MIN Insulin Aspart (novoLOG ASPART) SLIDING SCALE G... ACHS SC 08/23/17 21:00 09/22/17 20:59 08/26/17 12:31 8 UNITS Dutasteride (Avodart) 0.5 mg QAM PO 08/25/17 15:00 09/24/17 14:59 08/26/17 09:23 0.5 MG Albuterol/ Ipratropium (Duoneb) 3 ml Q4R INH 08/25/17 17:00 09/24/17 16:59 08/26/17 15:13 3 ML Albuterol/ Ipratropium (Duoneb) 3 ml Q2H PRN INH 08/25/17 17:00 09/24/17 16:59 Ioversol (Optiray 320) 100 ml UD PRN IV 08/25/17 21:30 08/29/17 21:29 Miscellaneous Information (Icu Protocol For Hyperglycemia) 1 ea PRN PRN N/A 08/25/17 22:15 08/27/17 22:14 Oxycodone/ Acetaminophen (Percocet 5-325mg Tab) 1 tab Q8H PRN PO 08/26/17 06:00 09/09/17 05:59 08/26/17 11:18 1 TAB Budesonide/ Formoterol Fumarate (Symbicort 160/ 4.5 Inh) 2 puffs BID INH 08/26/17 21:00 09/25/17 20:59 Diclofenac Sodium (Voltaren 1% Top Gel) 1 appln QID EXT 08/26/17 17:00 09/25/17 16:59 UNV Ferrous Sulfate (Feosol Tab) 325 mg BIDM PO 08/26/17 16:30 09/25/17 16:29 I & O: 24-Hour Column 08/27/17 07:59 Intake Total 479 ml Output Total 550 ml Balance -71 ml Vital Signs: Date Time Temp Pulse Resp B/P (MAP) Pulse Ox O2 Delivery O2 Flow Rate FiO2 08/26/17 15:30 Nasal Cannula 4.0 60 08/26/17 15:30 37.2 62 20 113/61 (78) 92 Nasal Cannula 4.0 08/26/17 15:13 62 20 93 Nasal Cannula 4.0 08/26/17 14:00 54 17 117/63 (81) 97 Nasal Cannula 4.0 08/26/17 12:00 Nasal Cannula 4.0 08/26/17 12:00 36.9 68 18 107/57 (74) 92 Nasal Cannula 4.0 08/26/17 11:10 65 20 91 Mask 4.0 08/26/17 11:00 74 156/58 (90) 92 Nasal Cannula 4.0 08/26/17 08:00 Nasal Cannula 4.0 08/26/17 08:00 Nasal Cannula BiPAP 08/26/17 08:00 36.9 68 19 127/66 (86) 92 Nasal Cannula 4.0 08/26/17 07:00 87 20 100 BiPAP/CPAP 60 08/26/17 06:01 48 10 117/51 (73) 100 BiPAP 60.0 08/26/17 05:01 53 16 114/48 (70) 99 BiPAP 60.0 08/26/17 04:16 97 BiPAP 70 08/26/17 04:03 56 100 60 08/26/17 04:01 56 24 100 BiPAP/CPAP 60 08/26/17 04:01 36.7 59 12 123/66 (85) 100 BiPAP 70.0 08/26/17 03:01 49 16 109/52 (71) 100 BiPAP 70.0 08/26/17 02:01 48 17 106/54 (71) 100 BiPAP 70.0 08/26/17 01:01 57 12 95/48 (64) 100 BiPAP 70.0 08/26/17 00:48 93 70 08/26/17 00:15 55 95 50 08/26/17 00:03 97 BiPAP 70 08/26/17 00:01 37.0 57 21 107/60 (76) 96 BiPAP 70.0 08/25/17 23:47 63 22 130/57 (81) 95 BiPAP 60.0 08/25/17 22:38 62 97 6.0 08/25/17 21:01 63 22 92/76 (81) 92 Oxymask 6.0 08/25/17 20:24 72 26 148/63 (91) 100 08/25/17 19:01 64 20 98 BiPAP/CPAP 6.0 08/25/17 19:01 64 98 6.0 08/25/17 18:58 37.0 65 20 128/62 (84) 97 BiPAP 6.0 08/25/17 18:38 82 90 6.0 08/25/17 17:06 76 20 89 Nasal Cannula 5.0 08/25/17 16:08 36.6 49 16 138/72 92 5.0 Laboratory Results: Last 24 Hours Test 08/25/17 16:17 08/25/17 18:31 08/25/17 20:08 08/25/17 20:53 Bedside Glucose 138 mg/dl 162 mg/dl Arterial Blood pH 7.32 Arterial Blood Partial Pressure CO2 72 mmHg Arterial Blood Partial Pressure O2 68 mm/Hg Arterial Blood HCO3 36 mmol/L Arterial Blood Oxygen Saturation 90.0 % Arterial Blood Base Excess 8.2 mEq/L Arterial Blood Gas Delivery 6L Mikel Test POS NA Blood Gas Sample Site R Femoral Bedside Blood Gas pH (LAB) 7.44 Bedside Blood Gas pCO2 (LAB) 53 mmHg Bedside Blood Gas pO2 (LAB) 49 mmHg Bedside Blood Gas HCO3 (LAB) 36 meq/L Bedside Blood Gas Total CO2 38 mEq/l Bedside Blood Gas Base Excess (LAB) 12.0 meq/L Bedside Blood Gas O2 Saturation 85.0 % Oxygen Delivery Device NonRb Mask Bedside FiO2 100 % Test 08/25/17 20:59 08/25/17 21:30 08/25/17 22:11 08/26/17 01:50 White Blood Count 7.11 K/uL Red Blood Count 3.96 M/uL Hemoglobin 11.1 g/dL 10.7 g/dL Hematocrit 35.2 % 34.7 % Mean Corpuscular Volume 88.9 fL Mean Corpuscular Hemoglobin 28.0 pg Mean Corpuscular Hemoglobin Concent 31.5 g/dl Platelet Count 240 K/uL Mean Platelet Volume 9.3 fL Neutrophils (%) (Auto) 81.2 % Lymphocytes (%) (Auto) 8.9 % Monocytes (%) (Auto) 8.2 % Eosinophils (%) (Auto) 1.1 % Basophils (%) (Auto) 0.3 % Neutrophils # (Auto) 5.78 K/uL Lymphocytes # (Auto) 0.63 K/uL Monocytes # (Auto) 0.58 K/uL Eosinophils # (Auto) 0.08 K/uL Basophils # (Auto) 0.02 K/uL RDW Standard Deviation 48.9 fL RDW Coefficient of Variation 15.1 % Immature Granulocyte % (Auto) 0.3 % Immature Granulocyte # (Auto) 0.02 K/uL Absolute Reticulocyte Count 0.07 10^6/uL Percent Reticulocyte Count 1.8 % Sodium Level 141 mmol/L Potassium Level 3.9 mmol/L Chloride Level 96 mmol/L Carbon Dioxide Level 35 mmol/L Anion Gap 9.0 mmol/L Blood Urea Nitrogen 38 mg/dl Creatinine 1.72 mg/dl Est Creatinine Clear Calc Drug Dose 43.1 ml/min Estimated GFR () 41.7 Estimated GFR (Non- 36.0 BUN/Creatinine Ratio 22.1 Random Glucose 183 mg/dl Lactic Acid Level 1.3 mmol/L Calcium Level 8.8 mg/dl Phosphorus Level 5.3 mg/dl Magnesium Level 1.8 mg/dl Total Bilirubin 0.7 mg/dl Direct Bilirubin 0.2 mg/dl Aspartate Amino Transf (AST/SGOT) 14 U/L Alanine Aminotransferase (ALT/SGPT) 21 U/L Alkaline Phosphatase 85 U/L Total Protein 7.3 gm/dl Albumin 3.2 gm/dl Stool Occult Blood NEGATIVE Prothrombin Time 10.8 SECONDS Prothromb Time International Ratio 1.0 Activated Partial Thromboplast Time 27.2 SECONDS Partial Thromboplastin Ratio 1.0 Test 08/26/17 04:28 08/26/17 11:24 08/26/17 11:25 08/26/17 14:05 White Blood Count 6.18 K/uL Red Blood Count 3.69 M/uL Hemoglobin 10.3 g/dL 10.0 g/dL Hematocrit 33.6 % 32.4 % Mean Corpuscular Volume 91.1 fL Mean Corpuscular Hemoglobin 27.9 pg Mean Corpuscular Hemoglobin Concent 30.7 g/dl RDW Standard Deviation 50.9 fL RDW Coefficient of Variation 15.1 % Platelet Count 229 K/uL Mean Platelet Volume 9.9 fL Activated Partial Thromboplast Time 31.0 SECONDS 39.1 SECONDS Partial Thromboplastin Ratio 1.2 1.5 Sodium Level 140 mmol/L Potassium Level 3.5 mmol/L Chloride Level 98 mmol/L Carbon Dioxide Level 38 mmol/L Anion Gap 4.0 mmol/L Blood Urea Nitrogen 41 mg/dl Creatinine 1.51 mg/dl Est Creatinine Clear Calc Drug Dose 49.1 ml/min Estimated GFR () 48.8 Estimated GFR (Non- 42.1 BUN/Creatinine Ratio 27.0 Random Glucose 157 mg/dl Calcium Level 8.4 mg/dl Magnesium Level 2.0 mg/dl Troponin I 0.199 ng/ml Pro-B-Type Natriuretic Peptide 1938 pg/ml Bedside Glucose 306 mg/dl
[2017-08-26] MEDS: DICLOFENAC SOD 1% GEL 100 GM TUBE EXT SCH ×2 (17:00→21:49)
[2017-08-26] MEDS: BUDESONIDE/FORMOTEROL FUMARATE 160/4.5 60 PUFFS/INHALER INH SCH (21:48)
[2017-08-26] MEDS ORDERED: NURSING VERBAL MED ORDER ONE (23:00)
[2017-08-26] MEDS ORDERED: LORAZEPAM 0.5 MG TAB PO STA (23:21)
[2017-08-27] VITALS (12 sets, daily range): BP systolic 128–159; BP diastolic 66–85; PULSE 59–79; TEMP 36.7–37.1; O2SAT 90–95
[2017-08-27] MEDS: ALBUT/IPRATROP 3MG/0.5MG NEB 3 ML VIAL INH SCH ×7 (03:06→23:13)
[2017-08-27] MEDS: ACETAMINOPHEN 325 MG TAB PO PRN ×2 (04:12→22:35)
[2017-08-27] MEDS: OXYCODONE/ACETAMINOPHEN 5-325 TAB PO PRN ×3 (06:11→20:48)
[2017-08-27 07:12] LABS: BASO % 0.2 %; BASO ABS # 0.01 K/uL (0-0.2); EOS % 3.8 %; EOS ABS # 0.22 K/uL (0-0.5); HEMATOCRIT 33.1 % (42-52); HEMOGLOBIN 10.3 g/dL (14.0-18.0); IG# 0.01 K/uL (0.00-0.02); LYMPH % 9.8 %; LYMPH ABS # 0.57 K/uL (1.2-3.4); MEAN CELL VOLUME 89.9 fL (80-100); MEAN CORPUSCULAR HGB CONC 31.1 g/dl (32-36); MEAN PLATELET VOLUME 9.7 fL (7.4-10.4); MONO % 12.4 %; MONO ABS # 0.72 K/uL (0.11-0.59); NEUT % 73.6 %; NEUT ABS # 4.27 K/uL (1.4-6.5); PLATELET COUNT 229 K/uL (130-400); RED CELL DISTRIBUTION WIDTH CV 15.2 % (11.5-14.5); RED CELL DISTRIBUTION WIDTH SD 49.7 fL (36.4-46.3)
--- NOTE | 2017-08-27 07:16 | Hospitalist Progress Note ---
Hospitalist Progress Note Date of Service Aug 26, 2017. Subjective Pt evaluation today including: conversation w/ patient, conversation w/ client insights consultant (Pulmonary critical care, cardiology PA) Patient feels fine. He is off BiPAP and is alert and awake. He denies any chest pain or shortness of breath. No cough. He does report a little bit of a chronic cough that is nonproductive. He has never been told he has COPD. He has never been on oxygen at home. He smoked 3 packs a day for many years but quit 40 years ago. His VQ scan this morning was negative. His reports he is on chronic opioids for his chronic left trochanteric bursitis and left shoulder pain for which he gets injections every 4 months. He has tried a lidocaine patch in the past as well as Tylenol. He cannot take NSAIDs for history of GI bleeding and cardiac disease. Constitutional: No fever Respiratory: No shortness of breath Cardiovascular: No chest pain Musculoskeletal: + problem reported (Chronic and severe left trochanteric bursitis and left chronic shoulder pain for which she receives injections every 4 months) All Other Systems: Reviewed and Negative Objective Vital Signs Date Time Temp Pulse Resp B/P (MAP) Pulse Ox O2 Delivery O2 Flow Rate FiO2 08/26/17 12:00 Nasal Cannula 4.0 08/26/17 12:00 36.9 68 18 107/57 (74) 92 Nasal Cannula 4.0 08/26/17 11:10 65 20 91 Mask 4.0 08/26/17 11:00 74 156/58 (90) 92 Nasal Cannula 4.0 08/26/17 08:00 Nasal Cannula 4.0 08/26/17 08:00 Nasal Cannula BiPAP 08/26/17 08:00 36.9 68 19 127/66 (86) 92 Nasal Cannula 4.0 08/26/17 07:00 87 20 100 BiPAP/CPAP 60 08/26/17 06:01 48 10 117/51 (73) 100 BiPAP 60.0 08/26/17 05:01 53 16 114/48 (70) 99 BiPAP 60.0 08/26/17 04:16 97 BiPAP 70 08/26/17 04:03 56 100 60 08/26/17 04:01 56 24 100 BiPAP/CPAP 60 08/26/17 04:01 36.7 59 12 123/66 (85) 100 BiPAP 70.0 08/26/17 03:01 49 16 109/52 (71) 100 BiPAP 70.0 08/26/17 02:01 48 17 106/54 (71) 100 BiPAP 70.0 08/26/17 01:01 57 12 95/48 (64) 100 BiPAP 70.0 08/26/17 00:48 93 70 08/26/17 00:15 55 95 50 08/26/17 00:03 97 BiPAP 70 08/26/17 00:01 37.0 57 21 107/60 (76) 96 BiPAP 70.0 08/25/17 23:47 63 22 130/57 (81) 95 BiPAP 60.0 08/25/17 22:38 62 97 6.0 08/25/17 21:01 63 22 92/76 (81) 92 Oxymask 6.0 08/25/17 20:24 72 26 148/63 (91) 100 08/25/17 19:01 64 20 98 BiPAP/CPAP 6.0 08/25/17 19:01 64 98 6.0 08/25/17 18:58 37.0 65 20 128/62 (84) 97 BiPAP 6.0 08/25/17 18:38 82 90 6.0 08/25/17 17:06 76 20 89 Nasal Cannula 5.0 08/25/17 16:08 36.6 49 16 138/72 92 5.0 08/25/17 16:00 91 Nasal Cannula 5.0 08/25/17 15:07 36.3 54 18 122/65 94 5.0 08/25/17 14:21 63 18 95 Nasal Cannula 5.0 Physical Exam General Appearance: WD/WN, no apparent distress, + obese Eyes: normal inspection, sclerae normal ENT: hearing grossly normal Neck: trachea midline Respiratory/Chest: lungs clear, normal breath sounds, no respiratory distress, no accessory muscle use Cardiovascular: regular rate, rhythm, no edema, no murmur Abdomen: normal bowel sounds, non tender, soft Extremities: normal inspection, no pedal edema, no calf tenderness, + pertinent finding (Positive tenderness to palpation left lateral hip) Neurologic/Psychiatric: alert, normal mood/affect, oriented x 3 Skin: normal color, warm/dry (Digit to talk for Gloria she), no rash Lymphatic: no adenopathy (I think she did get she was here and I left it like 9 last night and she was here and I cannot hear at 6 this she does not sound good) Laboratory Results Last 24 Hours Test 08/25/17 16:17 08/25/17 18:31 08/25/17 20:08 08/25/17 20:53 Bedside Glucose 138 mg/dl 162 mg/dl Arterial Blood pH 7.32 Arterial Blood Partial Pressure CO2 72 mmHg Arterial Blood Partial Pressure O2 68 mm/Hg Arterial Blood HCO3 36 mmol/L Arterial Blood Oxygen Saturation 90.0 % Arterial Blood Base Excess 8.2 mEq/L Arterial Blood Gas Delivery 6L Mikel Test POS NA Blood Gas Sample Site R Femoral Bedside Blood Gas pH (LAB) 7.44 Bedside Blood Gas pCO2 (LAB) 53 mmHg Bedside Blood Gas pO2 (LAB) 49 mmHg Bedside Blood Gas HCO3 (LAB) 36 meq/L Bedside Blood Gas Total CO2 38 mEq/l Bedside Blood Gas Base Excess (LAB) 12.0 meq/L Bedside Blood Gas O2 Saturation 85.0 % Oxygen Delivery Device NonRb Mask Bedside FiO2 100 % Test 08/25/17 20:59 08/25/17 21:30 08/25/17 22:11 08/26/17 01:50 White Blood Count 7.11 K/uL Red Blood Count 3.96 M/uL Hemoglobin 11.1 g/dL 10.7 g/dL Hematocrit 35.2 % 34.7 % Mean Corpuscular Volume 88.9 fL Mean Corpuscular Hemoglobin 28.0 pg Mean Corpuscular Hemoglobin Concent 31.5 g/dl Platelet Count 240 K/uL Mean Platelet Volume 9.3 fL Neutrophils (%) (Auto) 81.2 % Lymphocytes (%) (Auto) 8.9 % Monocytes (%) (Auto) 8.2 % Eosinophils (%) (Auto) 1.1 % Basophils (%) (Auto) 0.3 % Neutrophils # (Auto) 5.78 K/uL Lymphocytes # (Auto) 0.63 K/uL Monocytes # (Auto) 0.58 K/uL Eosinophils # (Auto) 0.08 K/uL Basophils # (Auto) 0.02 K/uL RDW Standard Deviation 48.9 fL RDW Coefficient of Variation 15.1 % Immature Granulocyte % (Auto) 0.3 % Immature Granulocyte # (Auto) 0.02 K/uL Absolute Reticulocyte Count 0.07 10^6/uL Percent Reticulocyte Count 1.8 % Sodium Level 141 mmol/L Potassium Level 3.9 mmol/L Chloride Level 96 mmol/L Carbon Dioxide Level 35 mmol/L Anion Gap 9.0 mmol/L Blood Urea Nitrogen 38 mg/dl Creatinine 1.72 mg/dl Est Creatinine Clear Calc Drug Dose 43.1 ml/min Estimated GFR () 41.7 Estimated GFR (Non- 36.0 BUN/Creatinine Ratio 22.1 Random Glucose 183 mg/dl Lactic Acid Level 1.3 mmol/L Calcium Level 8.8 mg/dl Phosphorus Level 5.3 mg/dl Magnesium Level 1.8 mg/dl Total Bilirubin 0.7 mg/dl Direct Bilirubin 0.2 mg/dl Aspartate Amino Transf (AST/SGOT) 14 U/L Alanine Aminotransferase (ALT/SGPT) 21 U/L Alkaline Phosphatase 85 U/L Total Protein 7.3 gm/dl Albumin 3.2 gm/dl Stool Occult Blood NEGATIVE Prothrombin Time 10.8 SECONDS Prothromb Time International Ratio 1.0 Activated Partial Thromboplast Time 27.2 SECONDS Partial Thromboplastin Ratio 1.0 Test 08/26/17 04:28 08/26/17 11:24 08/26/17 11:25 08/26/17 14:05 White Blood Count 6.18 K/uL Red Blood Count 3.69 M/uL Hemoglobin 10.3 g/dL 10.0 g/dL Hematocrit 33.6 % 32.4 % Mean Corpuscular Volume 91.1 fL Mean Corpuscular Hemoglobin 27.9 pg Mean Corpuscular Hemoglobin Concent 30.7 g/dl RDW Standard Deviation 50.9 fL RDW Coefficient of Variation 15.1 % Platelet Count 229 K/uL Mean Platelet Volume 9.9 fL Activated Partial Thromboplast Time 31.0 SECONDS 39.1 SECONDS Partial Thromboplastin Ratio 1.2 1.5 Sodium Level 140 mmol/L Potassium Level 3.5 mmol/L Chloride Level 98 mmol/L Carbon Dioxide Level 38 mmol/L Anion Gap 4.0 mmol/L Blood Urea Nitrogen 41 mg/dl Creatinine 1.51 mg/dl Est Creatinine Clear Calc Drug Dose 49.1 ml/min Estimated GFR () 48.8 Estimated GFR (Non- 42.1 BUN/Creatinine Ratio 27.0 Random Glucose 157 mg/dl Calcium Level 8.4 mg/dl Magnesium Level 2.0 mg/dl Troponin I 0.199 ng/ml Pro-B-Type Natriuretic Peptide 1938 pg/ml Bedside Glucose 306 mg/dl Assessment and Plan Patient is an 82 y/o male with a history of HTN, HLD, chronic diastolic CHF, CAD s/p CABG, suspected COPD/previous smoker, anemia and recent GI diverticular bleed, DM II, prostate cancer s/p TURP and XRT, BPH, lymphedema of LEs, and GERD who presented to the ED on 08/23 with worsening shortness of breath, dyspnea on exertion and weakness. Pt tachypneic and hypoxic on arrival, placed on 2L NC. He does not wear oxygen at home. Otherwise, VSS. CXR with mild congestive failure. EKG no ischemic changes. Hgb 8.6, stable since recent GI bleed. Troponin elevated and proBNP elevated. Acute hypercarbic and hypoxic respiratory failure-exacerbated by opioid use and possible obesity hypoventilation, as well as likely undiagnosed COPD. Had period of minimal responsiveness on the evening of 08/25 which resolved with giving Narcan x 2 doses, placed on BiPAP, and transfurred to the ICU. ABG was 7.32/72/68. Repeat abg after being on BiPAP and became more alert after Narcan showed 7.44/53/49. Pulm here thinks his baseline PaO2 is the 49 and that he was getting too much O2 previously. Thinks undiagnosed COPD based on lung appearance on CT abd/pel and h/o 3 PPD smoking. Now improved. ECHO showed: * 1. LV mildly dilated, normal LV wall thickness. * 2. LVEF 50-55%. Abnormal septal motion. * 3. RV dilated. Borderline RV function. * 4. Grade II diastolic dysfunction. * 5. Moderate pulmonary hypertension. Est PASP 55-60 mmHg. Normal est CVP. * 6. Compared with prior study on 06/15/2017: RV dilation, pulmonary hypertension better appreciated. -Because he had new finding of RV borderline function and pulm HTN, Wood Stainer questioned acute PE--> started on heparin gtt and ordered Dopplers LEs which were negative, V/Q scan this AM with low probability of PE. 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 Repeat CXR shows improved Pulm congestion and BNP has trended downward. Having some bradycardia into the 30s-40s -continue to hold Bumex and HCTZ, will likely restart po Bumex tomorrow -holding losartan for acute rise in oil furnace installer which is now improving -holding atenolol for bradycardia -Daily weights, strict I's & O's -Low sodium diet -Consult cardiology, appreciate recs Weakness -PT/OT evaluate and treat, case management consulted Slurred speech reported on admission. Per some intermittent slurred speech last few days RESIDENT ADVISOR. Could be from hypercarbia or hypoxia. Not present now -Head CT negative in ED -Carotid doppler ultrasound with moderate left ICA stenosis I do not think he had a CVA Elevated troponin/demand ischemia--improving, unclear if from acute diastolic CHF versus hypoxia, trending downward -Troponin 0.492 HTN, HLD, CAD, angina, h/o [place]--stable. Reports no angina for last week or two -Continue ASA, Plavix, Lipitor 40 mg PO hs, , Imdur 180 mg PO qd -HCTZ, losartan, atenolol all on hold for JORDEN and bradycardia Anemia--baseline Hgb 8-9 since GI bleed in Jun, only recently started on p.o. iron as an outpatient. Had upper and lower endoscopy last admission was suspected diverticular bleed and also had a bleeding gastric polyp that was clipped -Hgb 8.6 on admission, now status post PRBC transfusion and hemoglobin remained stable at 10.3 -Continue ferrous sulfate and increase to twice daily DM II--last HgbA1c 7.1 on 06/06/17, with 1 episode of hyperglycemia here -Holding glimepiride and metformin -Insulin sliding scale -Check BSGs q ac and qhs Prostate cancer, BPH--s/p TURP, Casodex, radiation -Continue alfuzosin 10 mg PO qd, Avodart 0.5 mg PO qd Hypomagnesemia -Magnesium 1.6 on admission and was replaced DVT prophylaxis -Heparin drip-to be discontinued now and start heparin SQ -ENID Montes Code Status -Level I, FULL RESUSCITATION STATUS
[2017-08-27 07:43] LABS: CALCIUM 8.8 mg/dl (8.5-10.1); CREATININE 1.05 mg/dl (0.60-1.40); POTASSIUM 3.3 mmol/L (3.5-5.1)
[2017-08-27] MEDS: FERROUS SULFATE 325 MG TAB PO SCH ×2 (07:53→17:08)
[2017-08-27] MEDS: DICLOFENAC SOD 1% GEL 100 GM TUBE EXT SCH ×4 (07:53→20:47)
[2017-08-27] MEDS: DUTASTERIDE 0.5MG PO SCH (07:54)
[2017-08-27] MEDS: BUDESONIDE/FORMOTEROL FUMARATE 160/4.5 60 PUFFS/INHALER INH SCH ×2 (07:54→20:48)
[2017-08-27] MEDS: CLOPIDOGREL BISULFATE 75 MG TAB PO SCH (07:55)
[2017-08-27] MEDS: MULTIVITAMIN TAB PO SCH (07:55)
[2017-08-27] MEDS: ALFUZosin TAB 10 MG TAB PO SCH (07:55)
[2017-08-27] MEDS: PANTOprazole SOD 40 MG TAB PO SCH (07:55)
[2017-08-27] MEDS: ASPIRIN 81 MG ECTAB PO SCH (07:55)
[2017-08-27] MEDS ORDERED: POTASSIUM CHLORIDE 10 MEQ TABCR PO STA (08:08)
[2017-08-27] MEDS: INSULIN ASPART 100 UNITS/ML 3 ML PEN SC SCH ×4 (08:18→20:55)
[2017-08-27] MEDS: HEPARIN SOD 5000 UNIT/0.5 ML CARP SQ SCH ×2 (13:47→20:54)
--- NOTE | 2017-08-27 16:10 | Hospitalist Progress Note ---
Hospitalist Progress Note Date of Service Aug 27, 2017. Subjective Pt evaluation today including: conversation w/ patient, conversation w/ family Patient feeling well. Denies shortness of breath but remains on 2 L O2. No chest pain or pressure. He did qualify for overnight O2 with his oximetry test last night. He does also qualify potentially for home BiPAP, however the patient and his tell me today that they would like SNF placement at [facility]. Patient reports he does not take Bumex that often at home because then he cannot go anywhere due to excessive urination on top of his usual urinary incontinence since his TURP surgery. He says that he would not be willing to wear a BiPAP mask at home. Telemetry with normal sinus rhythm with some PVCs, bigeminy, and couplets, rates in the 70s-80s. All Other Systems: Reviewed and Negative Objective Vital Signs Date Time Temp Pulse Resp B/P (MAP) Pulse Ox O2 Delivery O2 Flow Rate FiO2 08/27/17 15:27 59 18 93 Nasal Cannula 3.0 08/27/17 12:00 Nasal Cannula 2.0 08/27/17 11:33 62 18 94 Nasal Cannula 2.0 08/27/17 08:00 90 Nasal Cannula 2.0 08/27/17 07:29 36.7 70 20 159/85 (109) 90 2.0 08/27/17 07:02 64 20 90 Nasal Cannula 2.0 08/27/17 04:00 Nasal Cannula 2.0 08/27/17 03:44 37.1 69 20 137/71 (93) 91 Nasal Cannula 2.0 08/27/17 00:00 Nasal Cannula 2.0 08/26/17 23:54 36.9 64 20 135/57 (83) 90 Nasal Cannula 2.0 08/26/17 20:00 Nasal Cannula 4.0 08/26/17 19:13 37.1 87 16 147/74 (98) 99 Nasal Cannula 4.0 08/26/17 19:10 64 20 92 Nasal Cannula 4.0 08/26/17 16:15 36.9 63 18 122/63 (82) 92 Nasal Cannula 4.0 08/26/17 16:02 Nasal Cannula 4.0 Physical Exam General Appearance: WD/WN, no apparent distress, + obese Eyes: normal inspection, sclerae normal ENT: hearing grossly normal Neck: trachea midline Respiratory/Chest: no respiratory distress, no accessory muscle use, + decreased breath sounds (Diminished throughout, but no wheezes crackles or rhonchi) Cardiovascular: regular rate, rhythm, no murmur, + pertinent finding (Positive lymphedema left greater than right legs, 2+) Abdomen: normal bowel sounds, non tender, soft (And obese) Extremities: no calf tenderness Neurologic/Psychiatric: alert, normal mood/affect, oriented x 3 Skin: normal color, warm/dry, no rash Laboratory Results Last 24 Hours Test 08/26/17 16:20 08/26/17 20:31 08/27/17 06:31 08/27/17 06:47 Bedside Glucose 204 mg/dl 209 mg/dl 157 mg/dl White Blood Count 5.80 K/uL Red Blood Count 3.68 M/uL Hemoglobin 10.3 g/dL Hematocrit 33.1 % Mean Corpuscular Volume 89.9 fL Mean Corpuscular Hemoglobin 28.0 pg Mean Corpuscular Hemoglobin Concent 31.1 g/dl Platelet Count 229 K/uL Mean Platelet Volume 9.7 fL Neutrophils (%) (Auto) 73.6 % Lymphocytes (%) (Auto) 9.8 % Monocytes (%) (Auto) 12.4 % Eosinophils (%) (Auto) 3.8 % Basophils (%) (Auto) 0.2 % Neutrophils # (Auto) 4.27 K/uL Lymphocytes # (Auto) 0.57 K/uL Monocytes # (Auto) 0.72 K/uL Eosinophils # (Auto) 0.22 K/uL Basophils # (Auto) 0.01 K/uL RDW Standard Deviation 49.7 fL RDW Coefficient of Variation 15.2 % Immature Granulocyte % (Auto) 0.2 % Immature Granulocyte # (Auto) 0.01 K/uL Sodium Level 140 mmol/L Potassium Level 3.3 mmol/L Chloride Level 98 mmol/L Carbon Dioxide Level 36 mmol/L Anion Gap 7.0 mmol/L Blood Urea Nitrogen 31 mg/dl Creatinine 1.05 mg/dl Est Creatinine Clear Calc Drug Dose 70.0 ml/min Estimated GFR () 75.7 Estimated GFR (Non- 65.3 BUN/Creatinine Ratio 29.4 Random Glucose 151 mg/dl Calcium Level 8.8 mg/dl Magnesium Level 2.0 mg/dl Test 08/27/17 08:25 08/27/17 11:17 Arterial Blood pH 7.47 Arterial Blood Partial Pressure CO2 47 mmHg Arterial Blood Partial Pressure O2 70 mm/Hg Arterial Blood HCO3 33 mmol/L Arterial Blood Oxygen Saturation 93.5 % Arterial Blood Base Excess 8.0 mEq/L Arterial Blood Gas Delivery 2 L Mikel Test POS Bedside Glucose 273 mg/dl Assessment and Plan Patient is an 82 y/o male with a history of HTN, HLD, chronic diastolic CHF, CAD s/p CABG, suspected COPD/previous smoker, anemia and recent GI diverticular bleed, DM II, prostate cancer s/p TURP and XRT, BPH, lymphedema of LEs, and GERD who presented to the ED on 08/23 with worsening shortness of breath, dyspnea on exertion and weakness. Pt tachypneic and hypoxic on arrival, placed on 2L NC. He does not wear oxygen at home. Otherwise, VSS. CXR with mild congestive failure. EKG no ischemic changes. Hgb 8.6, stable since recent GI bleed. Troponin elevated and proBNP elevated. Acute hypercarbic and hypoxic respiratory failure/COPD-exacerbated by opioid use and possible obesity hypoventilation, as well as likely undiagnosed COPD. Had period of minimal responsiveness on the evening of 08/25 after being given an extra 5 mg of oxycodone which resolved with giving Narcan x 2 doses, placed on BiPAP, and transferred to the ICU. ABG was 7.32/72/68. Repeat abg after being on BiPAP and became more alert after Narcan showed 7.44/53/49. Pulm here thinks his baseline PaO2 is the 49 and that he was getting too much O2 previously. Thinks undiagnosed COPD based on lung appearance on CT abd/pel and h /o 3 PPD smoking. Now improved. ECHO showed: * 1. LV mildly dilated, normal LV wall thickness. * 2. LVEF 50-55%. Abnormal septal motion. * 3. RV dilated. Borderline RV function. * 4. Grade II diastolic dysfunction. * 5. Moderate pulmonary hypertension. Est PASP 55-60 mmHg. Normal est CVP. * 6. Compared with prior study on 06/15/2017: RV dilation, pulmonary hypertension better appreciated. -Because he had new finding of RV borderline function and pulm HTN, Development Disability Specialist questioned acute PE--> started on heparin gtt and ordered Dopplers LEs which were negative, V/Q scan with low probability of PE.-->-dcd heparin gtt -Overnight oximetry qualifies him for O2, however now he will be going to SNF -will need formal PFTs as outpt and f/u with Pulm -treat for COPD as per Pulm recommendations today- started Symbicort and as needed nebulizers and bronchodilators -dc'd OxyContin and will only use short acting Percocet prn pain (chronic pain in hips) and will try Voltaren gel Acute on chronic diastolic heart failure/suspected pulmonary hypertension/right- sided heart failure/bradycardia--diuresing with IV Bumex which was held after sales coach increased. Losartan and HCTZ were also placed on hold. Repeat CXR shows improved Pulm congestion and patient is now asymptomatic except still requiring 2 L nasal cannula which may be for his COPD. Was having some bradycardia into the 30s-40s, now resolved with holding atenolol -We will restart p.o. Bumex 1 mg daily and advised importance of continuing on this upon discharge -Permanently discontinue HCTZ -Restart losartan in the morning -Continue to hold atenolol for bradycardia -Daily weights, strict I's & O's -Low sodium diet -Consult cardiology, appreciate recs -Recommend outpatient sleep study Slurred speech reported on admission. 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 Could be from hypercarbia or hypoxia. Not present now -Head CT negative in ED -Carotid doppler ultrasound with moderate left ICA stenosis I do not think he had a CVA Weakness/ambulatory dysfunction -PT/OT evaluate and treat, case management consulted Elevated troponin/demand ischemia--improving, unclear if from acute diastolic CHF versus hypoxia, trending downward -Troponin peaked at 0.545 and then trended downward HTN, HLD, CAD S/P CABG, stable angina, h/o [place]--stable. Reports no angina this admission -Continue ASA, Plavix, Lipitor 40 mg PO hs, Imdur 180 mg PO qd -Discontinuing HCTZ as above -Restart losartan -holding atenolol for bradycardia Acute renal insufficiency in setting of CKD stage III-creatinine bumped with IV diuresis and is now improved -Renally dose medications Avoid nephrotoxins Follow PRP Anemia--baseline Hgb 8-9 since GI bleed in Jun, only recently started on p.o. iron as an outpatient. Had upper and lower endoscopy last admission was suspected diverticular bleed and also had a bleeding gastric polyp that was clipped -Hgb 8.6 on admission, now status post PRBC transfusion and hemoglobin remained stable at 10.3 -Continue ferrous sulfate and increased to twice daily DM II--last HgbA1c 7.1 on 06/06/17, with some hyperglycemia here -Holding glimepiride and metformin -Insulin sliding scale and will lower correction factor and increase carb ratio -Check BSGs q ac and qhs Prostate cancer, BPH--s/p TURP, Casodex, radiation -Continue alfuzosin 10 mg PO qd, Avodart 0.5 mg PO qd -Discontinue Funk catheter today Hypomagnesemia -Magnesium 1.6 on admission and was replaced DVT prophylaxis -heparin SQ -ENID willams and SCDs Code Status -Level I, FULL RESUSCITATION STATUS Dispo-hopefully to SNF at [facility] tomorrow if authorization approved -Stable for transfer to medical floor
[2017-08-27] MEDS ORDERED: BUMETANIDE 1 MG TAB PO ONE (16:21)
[2017-08-27] MEDS: ISOSORBIDE MONONITRATE 60 MG TABCR PO SCH (20:48)
[2017-08-27] MEDS: ATORVASTATIN 40 MG TAB PO SCH (20:49)
[2017-08-28] VITALS (10 sets, daily range): BP systolic 148–164; BP diastolic 63–97; PULSE 66–80; TEMP 36.9–37; O2SAT 90–96
[2017-08-28] MEDS: ALBUT/IPRATROP 3MG/0.5MG NEB 3 ML VIAL INH SCH ×6 (03:09→23:17)
[2017-08-28 04:59] LABS: HEMATOCRIT 32.7 % (42-52); HEMOGLOBIN 10.3 g/dL (14.0-18.0); MEAN CELL VOLUME 89.3 fL (80-100); MEAN CORPUSCULAR HEMOGLOBIN 28.1 pg (25-34); MEAN PLATELET VOLUME 9.5 fL (7.4-10.4); PLATELET COUNT 230 K/uL (130-400); RED CELL DISTRIBUTION WIDTH CV 15.5 % (11.5-14.5); RED CELL DISTRIBUTION WIDTH SD 49.8 fL (36.4-46.3); WHITE BLOOD COUNT 5.09 K/uL (4.8-10.8)
[2017-08-28 05:13] LABS: CALCIUM 8.6 mg/dl (8.5-10.1); CREATININE 1.2 mg/dl (0.60-1.40); POTASSIUM 3.6 mmol/L (3.5-5.1)
[2017-08-28] MEDS: HEPARIN SOD 5000 UNIT/0.5 ML CARP SQ SCH ×3 (05:20→22:02)
[2017-08-28] MEDS: OXYCODONE/ACETAMINOPHEN 5-325 TAB PO PRN ×3 (05:21→19:41)
[2017-08-28 05:26] LABS: MEAN CORPUSCULAR HGB CONC 31.5 g/dl (32-36)
[2017-08-28] MEDS: FERROUS SULFATE 325 MG TAB PO SCH ×2 (07:51→17:05)
[2017-08-28] MEDS: PANTOprazole SOD 40 MG TAB PO SCH (07:51)
[2017-08-28] MEDS: ASPIRIN 81 MG ECTAB PO SCH (07:51)
[2017-08-28] MEDS: CLOPIDOGREL BISULFATE 75 MG TAB PO SCH (07:51)
[2017-08-28] MEDS: BUMETANIDE 1 MG TAB PO SCH (07:51)
[2017-08-28] MEDS: BUDESONIDE/FORMOTEROL FUMARATE 160/4.5 60 PUFFS/INHALER INH SCH ×2 (07:51→21:57)
[2017-08-28] MEDS: MULTIVITAMIN TAB PO SCH (07:51)
[2017-08-28] MEDS: DUTASTERIDE 0.5MG PO SCH (07:51)
[2017-08-28] MEDS: DICLOFENAC SOD 1% GEL 100 GM TUBE EXT SCH ×4 (07:52→21:00)
[2017-08-28] MEDS: ALFUZosin TAB 10 MG TAB PO SCH (07:52)
[2017-08-28] MEDS: INSULIN ASPART 100 UNITS/ML 3 ML PEN SC SCH ×4 (07:58→22:02)
[2017-08-28] MEDS: LOSARTAN POTASSIUM 50 MG TAB PO SCH (08:31)
[2017-08-28] MEDS: INSULIN GLARGINE SOLOSTAR 100 UNITS/ML 3 ML PEN SC SCH (09:55)
--- NOTE | 2017-08-28 10:10 | CARDIOLOGY PROGRESS NOTE ---
DATE: 08/28/2017 SUBJECTIVE: Mr. Hallman is resting comfortably in bedside chair without complaints of chest pain or dyspnea. Complaints of persistent fatigue. OBJECTIVE: VITAL SIGNS: Blood pressure is 160/80 with a regular pulse of 70. Respiratory rate is 20. The patient is afebrile at 36.9 degrees Celsius. Saturations 96% on 2 liters nasal cannula. NECK: Supple with full carotid upstrokes. No obvious bruits. Jugular venous pressure is flat at 90 degrees. No thyromegaly. CARDIOVASCULAR: Reveals a regular rhythm with normal S1 and S2. Heart sounds are distant. No obvious murmurs. LUNGS: Note decreased breath sounds at the bases but no rales, rhonchi, or wheezes. ABDOMEN: Obese without bruits. EXTREMITIES: Reveal intact radial artery pulses bilaterally. 1+ pretibial edema is noted. LABORATORY DATA: CBC notes hemoglobin of 10.3, hematocrit 32.7, white count 5.0, platelet count 230,000. Electrolytes note a sodium of 139, potassium 3.6, chloride 98, bicarb 36, BUN 27, creatinine 1.2, glucose 212. IMPRESSION AND PLAN: 1. Acute on chronic diastolic congestive heart failure -- patient appears compensated at this time. 2. Coronary artery disease -- status post coronary artery bypass grafting x4 in 1994, inoperable by cardiac catheterization. 3. Chronic stable angina pectoris -- quiescent on current medications. 4. Hypertension -- borderline control. 5. Diabetes mellitus. 6. Hypercholesterolemia.
--- NOTE | 2017-08-28 20:49 | Progress Note ---
Subjective Date of Service: Aug 28, 2017. Subjective Pt evaluation today including: conversation w/ patient, physical exam, chart review, lab review, review of studies (V/Q scan, dopplers of legs, etc ), review of inpatient medication list Pain: chronic bursitis pain but no worse than typical PO Intake: normal Voiding: no voiding problems no issues overnight staff report Rosemary [facility] should have a bed for him tomorrow asks that his oxycodone be more frequent than q8h he also reports he wears compression stockings for his chronic lymphedema Problem List Medical Problems: (1) Anemia Status: Chronic (2) Cellulitis of left lower leg Status: Acute (3) Dyspnea on exertion Status: Acute (4) Elevated brain natriuretic peptide (BNP) level Status: Acute (5) Elevated troponin Status: Acute (6) Funk catheter problem Status: Acute (7) Urinary retention Status: Acute (8) Urinary retention Status: Acute (9) Wound infection Status: Acute Review of Systems Constitutional: No fever Respiratory: No cough Cardiac: No chest pain Abdomen: No pain Objective Vital Signs Date Time Temp Pulse Resp B/P (MAP) Pulse Ox O2 Delivery O2 Flow Rate FiO2 08/28/17 19:39 70 16 90 Room Air 08/28/17 16:00 Room Air 08/28/17 15:47 68 16 90 Room Air 08/28/17 15:46 36.9 71 18 148/97 (114) 91 Room Air 08/28/17 11:23 66 18 94 Room Air 08/28/17 09:42 92 Room Air 08/28/17 08:00 Nasal Cannula 1.0 08/28/17 07:11 66 18 95 Nasal Cannula 2.0 08/28/17 06:51 36.9 70 20 164/86 (112) 96 Nasal Cannula 2.0 08/28/17 00:00 93 Nasal Cannula 2.0 60 08/27/17 23:32 37.1 74 18 128/66 (86) 90 Physical Exam General Appearance: no apparent distress, + obese ENT: pharynx normal Neck: no JVD Respiratory/Chest: no respiratory distress, no accessory muscle use, + decreased breath sounds (bases) Cardiovascular: regular rate, rhythm, no gallop Abdomen: normal bowel sounds, non tender, soft, no organomegaly Extremities: + pedal edema, + swelling (2+ b/l ) Neurologic/Psychiatric: alert, oriented x 3 Laboratory Results Last 24 Hours Test 08/28/17 04:33 08/28/17 07:32 08/28/17 11:21 08/28/17 15:58 White Blood Count 5.09 K/uL Red Blood Count 3.66 M/uL Hemoglobin 10.3 g/dL Hematocrit 32.7 % Mean Corpuscular Volume 89.3 fL Mean Corpuscular Hemoglobin 28.1 pg Mean Corpuscular Hemoglobin Concent 31.5 g/dl RDW Standard Deviation 49.8 fL RDW Coefficient of Variation 15.5 % Platelet Count 230 K/uL Mean Platelet Volume 9.5 fL Sodium Level 139 mmol/L Potassium Level 3.6 mmol/L Chloride Level 98 mmol/L Carbon Dioxide Level 36 mmol/L Anion Gap 5.0 mmol/L Blood Urea Nitrogen 27 mg/dl Creatinine 1.20 mg/dl Est Creatinine Clear Calc Drug Dose 61.3 ml/min Estimated GFR () 64.4 Estimated GFR (Non- 55.6 BUN/Creatinine Ratio 22.2 Random Glucose 212 mg/dl Calcium Level 8.6 mg/dl Magnesium Level 1.9 mg/dl Bedside Glucose 197 mg/dl 302 mg/dl 234 mg/dl Test 08/28/17 20:17 Bedside Glucose 207 mg/dl Assessment and Plan 82yo male with: 1. acute hypercarbic and hypoxic respiratory failure - likely 2nd to COPD exacerbation, acute/chronic diastolic CHF, and accidental overuse of oxycodone. Resp failure led to BIPAP usage and transfer to ICU. Fortunately the patient did well and did not require intubation. Now resolved. His O2 has been weaned off. Work-up for VTE was negative. 2. acute/chronic diastolic CHF - resolved; compensated. Continue bumex 1mg daily. Daily weights, etc. Beta pallavi not being used due to significant bradycardia. 3. pulmonary HTN - noted. Outpatient sleep study recommended to r/o PIPPA. 4. chronic hip bursitis - heat, oxycodone prn. Voltaren gel qid. 5. positive troponin - likely type 2 MA / myocardial demand ischemia in setting of acute/chronic CHF. No symptoms/signs of ACS. 6. lymphedema - if patient's family brings compression stockings will apply such. 7. CAD with prior CABG - cont asa, plavix, lipitor, imdur. No ischemic symptoms at this time. 8. HTN - controlled. 9. acute kidney injury in setting of CKD stage 3 - former resolved. 10. acute/chronic anemia - continue ferrous sulfate supplementation. 11. uncontrolled T2DM - add lantus 15 units daily. Cont novolog w/ meals/HS. 12. h/o prostate cancer, s/p TURP, casodex, xrt. 13. DVT proph - heparin TID. [facility] tomorrow Continued [facility] stay due to: ambulation difficulties, multiple IV medications needed Discharge planning: residential facility
[2017-08-28] MEDS: ISOSORBIDE MONONITRATE 60 MG TABCR PO SCH (21:58)
[2017-08-28] MEDS: ATORVASTATIN 40 MG TAB PO SCH (21:59)
[2017-08-29] MEDS: OXYCODONE/ACETAMINOPHEN 5-325 TAB PO PRN ×2 (02:14→09:45)
[2017-08-29] MEDS: ALBUT/IPRATROP 3MG/0.5MG NEB 3 ML VIAL INH SCH ×2 (03:14→11:13)
[2017-08-29] MEDS: HEPARIN SOD 5000 UNIT/0.5 ML CARP SQ SCH ×2 (06:04→14:00)
[2017-08-29 07:05] VITALS: BP 155/79; PULSE 72; TEMP 37; O2SAT 90
[2017-08-29 07:38] LABS: CREATININE 1.1 mg/dl (0.60-1.40); POTASSIUM 3.5 mmol/L (3.5-5.1)
[2017-08-29] MEDS: BUDESONIDE/FORMOTEROL FUMARATE 160/4.5 60 PUFFS/INHALER INH SCH (07:52)
[2017-08-29] MEDS: DICLOFENAC SOD 1% GEL 100 GM TUBE EXT SCH ×2 (07:52→12:27)
[2017-08-29] MEDS: MULTIVITAMIN TAB PO SCH (07:53)
[2017-08-29] MEDS: DUTASTERIDE 0.5MG PO SCH (07:53)
[2017-08-29] MEDS: PANTOprazole SOD 40 MG TAB PO SCH (07:53)
[2017-08-29] MEDS: ASPIRIN 81 MG ECTAB PO SCH (07:54)
[2017-08-29] MEDS: FERROUS SULFATE 325 MG TAB PO SCH (07:54)
[2017-08-29] MEDS: BUMETANIDE 1 MG TAB PO SCH (07:54)
[2017-08-29] MEDS: ALFUZosin TAB 10 MG TAB PO SCH (07:54)
[2017-08-29] MEDS: LOSARTAN POTASSIUM 50 MG TAB PO SCH (07:54)
[2017-08-29] MEDS: CLOPIDOGREL BISULFATE 75 MG TAB PO SCH (07:54)
[2017-08-29] MEDS: INSULIN ASPART 100 UNITS/ML 3 ML PEN SC SCH ×2 (07:57→12:27)
[2017-08-29] MEDS: INSULIN GLARGINE SOLOSTAR 100 UNITS/ML 3 ML PEN SC SCH (07:57)
--- NOTE | 2017-08-29 10:13 | DIAGNOSTIC IMAGING REPORT ---
CHEST 2 VIEWS ROUTINE CLINICAL HISTORY: hypoxia dyspnea COMPARISON STUDY: 08/25/2017 FINDINGS: Small bibasilar parenchymal infiltrative change. Mild stable cardiomegaly. Prior median sternotomy. Mid and upper lungs are clear. IMPRESSION: Small bibasilar parenchymal infiltrates. The above report was generated using voice recognition software. It may contain grammatical, syntax or spelling errors. Electronically signed by: Garry Bell M.D. 08/29/2017 10:11 AM Dictated Date/Time: 08/29/2017 10:09 AM
[2017-08-29 11:13] VITALS: PULSE 77; O2SAT 92
[2017-08-29 13:33] VITALS: BP 155/79; PULSE 77; TEMP 37; O2SAT 92
[2017-08-29] MEDS ORDERED: FRRS300 PO (13:41)
[2017-08-29] MEDS ORDERED: SYMIN INH (13:41)
[2017-08-29] MEDS ORDERED: IPRASOL4 INH (13:41)
[2017-08-29] MEDS ORDERED: MGNO400 PO (13:41)
[2017-08-29] MEDS ORDERED: VLTG EXT (13:41)
[2017-08-29] MEDS ORDERED: BUME1TAB PO (13:41)
[2017-08-29] MEDS ORDERED: OXYC1TAB3 PO (13:41)
[2017-08-29] MEDS ORDERED: OXGN (13:42)
--- NOTE | 2017-08-29 13:48 | Discharge Instructions ---
Discharge Instructions Date of Service Aug 29, 2017. Admission Reason for Admission: Acute On Chronic Congestive Heart Failure Discharge Discharge Diagnosis / Problem: Congestive Heart Failure, Suspected COPD - both improved Discharge Goals Goal(s): Learn about illness, Diagnostic testing, Therapeutic intervention Activity Recommendations Activity Level: Assistance Required Therapies: Physical Therapy, Occupational Therapy . Additional Information Patient informed of condition: Yes Advance Directives: Yes DNR: No Level of Care: Skilled Communicable Disease: No Prognosis: Stable Oxygen at (LPM): 2 liters at night-time only Funk Catheter: No Instructions / Follow-Up Instructions / Follow-Up Follow-up appointments - 1. medical researcher of [facility] within 48 hours. 2. [facility] Pulmonary - any provider - within 2-3 weeks or first available - diagnosis - suspected PIPPA, suspected COPD. Needs sleep study and PFTs. 3. [facility] Cardiology - Dr. Tae Rose or any other provider - within 1 week if possible. Diagnosis - CHF. Patient wears compression stockings. Once brings the stockings from home please place on both legs and wear as previous. Current Hospital Diet Patient's current hospital diet: Low Sodium Diet (2gm Na), Diabetes Type 2 Diet Discharge Diet Recommended Diet: Low Sodium Diet (2gm Na), Diabetes Type 2 Diet Fluid Restriction: 1800 ml (7 cups) Procedures Procedures Performed: 1. echocardiogram showing diastolic congestive heart failure 2. V/Q scan - low probability for blood clots in the lungs 3. dopplers of both legs - negative for blood clots in the legs 4. chest x-rays 5. 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 CAT scan of the head - normal Pending Studies Studies pending at discharge: no Physician Orders On Transfer Vital Signs: per routine Weigh: every MORNING ON STANDING SCALE IF ANY WEIGHT GAIN OF MORE THAN 2-3 POUNDS IN 1-2 DAYS PLEASE CALL FRUIT OR NUT FARM WORKER RIGHT AWAY Additional Orders: 1. FINGERSTICK BLOOD SUGAR CHECKS BEFORE MEALS AND AT BEDTIME 2. CBC, BMP, MAGNESIUM - IN 5 DAYS FOR STABILITY POLST Discussion: Not Applicable Laboratory Results Hemoglobin A1c Test 06/06/17 06:34 Range/Units Estimated Average Glucose 157 mg/dl Hemoglobin A1c 7.1 H 4.5-5.6 % Medical Emergencies . Who to Call and When: Medical Emergencies: If at any time you feel your situation is an emergency, please call 911 immediately. . Non-Emergent Contact Non-Emergency issues call your: Primary Care Provider, Box Packer Call Non-Emergent contact if: temperature is above 100.5, your pain is not controlled, your pain is worsening, your pain is unusual for you, your pain is concerning you, you have any medication questions . . "Provider Documentation" section prepared by Austen Ramirez. . Core Measure Problem Core Measures: None
--- NOTE | 2017-09-02 14:30 | Progress Note ---
Progress Note Date of Service Aug 25, 2017. PA Supervision Note for DOS 08/25/17, Late Entry: I saw and examined the pt along with LORRIE Rees for acute period of unresponsiveness and acute hypercarbic and hypoxic respiratory failure. I agree with all of LORRIE Rees's documentation for DOS 08/25/17 with the following exceptions/additions: Pt very minimally responsive to sternal rub, maintained his pulse, was on BiPAP at the time I saw him. We gave Narcan x 2 with no response initially (waited approximately 15 min). He did have some histamine response to Narcan with sneezing and yawning. I discussed care with Shoe Repairer Apprentice over the phone and decision was made to transfer pt down to ICU for possible intubation. When he arrived down in ICU and attempts at repeat ABG were made, he had a dramatic awakening and then was fully alert and awake. He was not intubated at that time. Repeat abg showed PaCO2 was decreased significantly after being on BiPAP. Agree with Phys Exam findings as per PA note. Patient is an 82 y/o male with a history of HTN, HLD, chronic diastolic CHF, CAD s/p CABG, suspected COPD/previous smoker, anemia and recent GI diverticular bleed, DM II, prostate cancer s/p TURP and XRT, BPH, lymphedema of LEs, and GERD who presented to the ED on 08/23 with worsening shortness of breath, dyspnea on exertion and weakness. Pt tachypneic and hypoxic on arrival, placed on 2L NC. He does not wear oxygen at home. Otherwise, VSS. CXR with mild congestive failure. EKG no ischemic changes. Hgb 8.6, stable since recent GI bleed. Troponin elevated and proBNP elevated. Acute hypercarbic and hypoxic respiratory failure-exacerbated by opioid use and possible obesity hypoventilation, as well as likely undiagnosed COPD. Had period of minimal responsiveness on the evening of 08/25 which resolved with giving Narcan x 2 doses, placed on BiPAP, and transferred to the ICU. ABG was 7.32/72/68. Repeat abg after being on BiPAP and became more alert after Narcan showed 7.44/53/49. Now improved but will remain in ICU for observation in case of return of respiratory failure overnight. ECHO showed: * 1. LV mildly dilated, normal LV wall thickness. * 2. LVEF 50-55%. Abnormal septal motion. * 3. RV dilated. Borderline RV function. * 4. Grade II diastolic dysfunction. * 5. Moderate pulmonary hypertension. Est PASP 55-60 mmHg. Normal est CVP. * 6. Compared with prior study on 06/15/2017: RV dilation, pulmonary hypertension better appreciated. -Because he had new finding of RV borderline function and pulm HTN, Shoe Repairer Apprentice questions acute PE--> started on heparin gtt and ordered Dopplers LEs which were negative, ordered V/Q scan -may need overnight oximetry to see about qualifying for BiPAP at home or at a minimum needs home O2 -will need formal PFTs as outpt and f/u with Pulm -dc'd OxyContin and will only use short acting Percocet prn pain (chronic pain in hips) Acute on chronic diastolic heart failure/Bradycardia--diuresing with IV Bumex, now material handling supervisor increased and Bumex and HCTZ on hold. Repeat CXR shows improved Pulm congestion and BNP has trended downward. Having some bradycardia into the 30s-40s -continue to hold Bumex and HCTZ, will likely restart po Bumex prior to dc -holding atenolol for bradycardia -Daily weights, strict I's & O's -Low sodium diet -Consult cardiology, appreciate recs Weakness -PT/OT evaluate and treat, case management consulted Slurred speech reported on admission. Per some intermittent slurred speech last few days BRAID MAKER. Could be from hypercarbia or hypoxia. Not present now -Head CT negative in ED -Carotid doppler ultrasound with moderate left ICA stenosis I do not think he had a CVA Elevated troponin/demand ischemia--improving, unclear if from acute diastolic CHF versus hypoxia, trending downward -Troponin 0.492 HTN, HLD, CAD, angina, h/o OH--stable. Reports no angina for last week or two -Continue ASA, Plavix, Lipitor 40 mg PO hs, , Imdur 180 mg PO qd -HCTZ, losartan, atenolol all on hold for JORDEN and bradycardia Anemia--baseline Hgb 8-9 since GI bleed in Jun, only recently started on p.o. iron as an outpatient. Had upper and lower endoscopy last admission was suspected diverticular bleed and also had a bleeding gastric polyp that was clipped -Hgb 8.6 on admission, now status post PRBC transfusion and hemoglobin remained stable at 10.3 -Continue ferrous sulfate and increase to twice daily DM II--last HgbA1c 7.1 on 06/06/17 -Holding glimepiride and metformin -Insulin sliding scale -Check BSGs q ac and qhs Prostate cancer, BPH--s/p TURP, Casodex, radiation -Continue alfuzosin 10 mg PO qd, Avodart 0.5 mg PO qd Hypomagnesemia -Magnesium 1.6 on admission and was replaced DVT prophylaxis -Heparin drip -ENID willams and SCDs Code Status -Level I, FULL RESUSCITATION STATUS
[2017-09-04] MEDS ORDERED: NRV5 PO ×2 (16:04→16:47)
[2017-09-04] MEDS ORDERED: TPRSR25 PO ×2 (16:04→16:47)
[2017-09-04] MEDS ORDERED: OXYC1TAB3 PO (16:37)
[2017-09-04] MEDS ORDERED: ACET-1047 PO (16:37)
[2017-09-04] MEDS ORDERED: CLOTCRE EXT (16:37)
--- NOTE | 2017-09-05 23:39 | Discharge Summary ---
Discharge Summary Date of Service Sep 05, 2017. Discharge Summary Admission Date: Aug 23, 2017 at 17:08 Discharge Date: Aug 29, 2017 Discharge Disposition: [facility] facility ([facility]) Principal Diagnosis: acute/chronic diastolic CHF Problems/Secondary Diagnoses: 1. acute hypercarbic and hypoxic respiratory failure - likely 2nd to COPD exacerbation, acute/chronic diastolic CHF, and accidental overuse of oxycodone 2. pulmonary hypertension 3. chronic hip bursitis 4. positive troponin - likely type 2 [place] / myocardial demand ischemia 5. lymphedema b/l legs 6. CAD s/p CABG 7. hypertension 8. acute kidney injury in the setting of CKD stage 3 9. acute/chronic anemia 10. uncontrolled T2DM 11. h/o prostate cancer 12. suspected underlying COPD 13. suspected PIPPA 14. morbid obesity - BMI 41 15. recent GI bleed requiring hospitalization July 2017 Immunizations: Have You Had Influenza Vaccine: No History of Tetanus Vaccine?: Unknown History of Pneumococcal: Yes Pneumococcal Date: Apr 26, 2004 History of Hepatitis B Vaccine: No Procedures: 1. echocardiogram - * 1. LV mildly dilated, normal LV wall thickness. * 2. LVEF 50-55%. Abnormal septal motion. * 3. RV dilated. Borderline RV function. * 4. Grade II diastolic dysfunction. * 5. Moderate pulmonary hypertension. Est PASP 55-60 mmHg. Normal est CVP. * 6. Compared with prior study on 06/15/2017: RV dilation, pulmonary hypertension better appreciated. 2. CT head - negative for acute stroke or ICH. 3. 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 4. V/Q scan - low probability for PE. 5. b/l lower extremity venous dopplers - negative for DVT. 6. PRBCs x 3 units Consultations: 1. cardiology - Rush Mobley MD 2. critical care - Alex Ferguson DO 3. PT, OT Medication Reconciliation New Medications: Home O2 Therapy (Oxygen) Gas 2 LITERS NA HS, #1 Magnesium Oxide (Magnesium-Oxide) 400 Mg Tab 400 MG PO QAM, #30 TABS 5 Refills Budesonide/Formoterol Fumarate (Symbicort 160-4.5 Mcg/Act) 60 Puffs/Inhaler Aero 2 PUFFS INH BID, #1 INHALER 2 Refills Diclofenac Sod (Voltaren) 100 Appln/100 Gm Gel 1 APPLN EXT QID, #1 TUBE 2 Refills apply 4 grams to either shoulder, either hip, either knee q6h prn pain Ferrous Sulfate (Ferrous Sulfate) 325 Mg Tab 325 MG PO TID, #90 TAB 1 Refill Ipratropium-Albuterol (Duoneb) 3 Ml Nebu 3 ML INH Q6H, #1 BOX 2 Refills Changed Medications: Bumetanide (Bumex) 1 Mg Tab 1 MG PO QAM, #30 TAB 3 Refills (Changed from: 2 TAB; DAILY; Removed Reason; 180 ; Removed Days; Refills: 1) Continued Medications: Alfuzosin Hcl (Uroxatral) 10 Mg Tab 10 MG PO QAM, TAB Aspirin (Aspirin Ec) 81 Mg Tab 81 MG PO DAILY Atorvastatin (Lipitor) 40 Mg Tab 40 MG PO HS Calcium Carbonate-Vitamin D (Calcium) 1 Tab Tab 2 TAB PO DAILY Clopidogrel (Plavix) 75 Mg Tab 75 MG PO DAILY, TAB Dutasteride (Avodart) 0.5 Mg Cap 0.5 MG PO QAM, CAP Esomeprazole Magnesium (Nexium) 40 Mg Capcr 40 MG PO QPM Glimepiride (Glimepiride) 2 Mg Tab 2 MG PO BID Isosorbide Mononitrate Ext Rel (Imdur Ext Rel) 120 Mg Ertab 180 MG PO QPM Losartan Potassium (Cozaar) 100 Mg Tab 100 MG PO QAM Metformin Hcl (Glucophage) 1,000 Mg Tab 1000 MG PO BID, TAB TAKE THIS MEDICATION WITH MORNING AND EVENING MEALS Multivitamin (Multivitamin) Tab 1 TAB PO QAM Niacin (Niacin) 500 Mg Tab 2000 MG PO QPM Nitroglycerin (Nitrostat) 0.4 Mg Sub 0.4 MG UT UD PRN for Chest Pain, #30 TAB Potassium Chloride (Potassium Chloride Er) 10 Meq Tab 20 MEQ PO QAM Discontinued Medications: Atenolol (Atenolol) 50 Mg Tab 50 MG PO QAM Hydrochlorothiazide (Hydrochlorothiazide) 25 Mg Tab 25 MG PO QAM Oxycodone HCl (Oxycodone HCl ER) 10 Mg Tab 10 MG PO BID Discharge Exam Physical Exam: General Appearance: no apparent distress, + obese ENT: pharynx normal Neck: no JVD Respiratory/Chest: lungs clear, normal breath sounds, no respiratory distress, no accessory muscle use Cardiovascular: regular rate, rhythm, no gallop, no murmur, normal peripheral pulses Abdomen / GI: normal bowel sounds, non tender, soft, no organomegaly Extremities: + pedal edema, + swelling (2+ b/l ) Neurologic/Psychiatric: alert, oriented x 3 Hospital Course HISTORY OF PRESENT ILLNESS: This is a 82 y/o male with a history of HTN, HLD, chronic diastolic CHF, CAD, anemia, DM II, prostate cancer, BPH, and GERD who presented to the ED on with worsening shortness of breath, dyspnea on exertion and weakness. The patient was admitted to the hospital in Jun 2017 with GI bleed, [place], and UTI. He is currently receiving home health and home PT services. In the last few days, he has become more acutely weak. He has had worsening shortness of breath , dyspnea on exertion, and wheezing. He has a cough at times that is non- productive. He states that over the last month he has been having more urinary incontinence, urgency and nocturia. The patient denies fevers, chills, sweats, chest pain, palpitations, claudication, nausea, vomiting, abdominal pain, dysuria, hematuria, urinary retention, paralysis, focal weakness, numbness and tingling. HOSPITAL COURSE: 1. acute/chronic diastolic CHF - resolved with IV diuretics. He will remain on bumex 1mg daily. He had been noncompliant with such prior to admission; counseled on importance of taking it daily, salt/fluid restriction, daily weights, etc. Beta pallavi not being used due to significant bradycardia. Weight on day of discharge was 125.9kg. 2. acute hypercarbic and hypoxic respiratory failure - this occurred on 08/25/17 , about 48 hours after admission to the hospital. This event was likely 2nd to suspected COPD exacerbation, acute/chronic diastolic CHF, and accidental overuse of oxycodone. Respiratory failure led to BIPAP usage and transfer to the ICU. The patient received narcan to reverse any narcotics that may have contributed to the episode. Fortunately the patient did well, did not require intubation, and only required ICU services for about 1 day. Work-up for VTE was negative including b/l LE dopplers and V/Q scan. When the patient establishes care with pulmonary outpatient PFTs are recommended. 3. pulmonary HTN - noted. Outpatient sleep study recommended to r/o PIPPA. 4. chronic hip bursitis - heat, oxycodone prn. Voltaren gel qid. The patient had been taking long-acting oxycontin as well prior to this hospital stay. It was advised that he stay off the oxycontin moving forward if at all possible. 5. positive troponin - likely type 2 [place] / myocardial demand ischemia in setting of acute/chronic CHF. No symptoms/signs of ACS while hospitalized. 6. lymphedema - chronic issue for which he uses compression stockings. 7. CAD with prior CABG - he will continue on asa, plavix, lipitor, imdur. No ischemic symptoms during his stay. Beta pallavi was deferred due to bradycardia. 8. HTN - largely controlled during his stay. 9. acute kidney injury in setting of CKD stage 3 - former resolved with discharge creatinine of 1.1. 10. acute/chronic anemia - he should continue on ferrous sulfate supplementation. He was transfused a total of 3 units of PRBCs due to a hemoglobin of 8.1 on 09/03. Discharge hemoglobin was about 10. Hemoccult was negative for blood. 11. uncontrolled T2DM - he will resume his previous outpatient diabetes regimen. Total Time Spent: Greater than 30 minutes This includes examination of the patient, discharge planning, medication reconciliation, and communication with other providers. Discharge Instructions Please refer to the electronic Patient Visit Report (Discharge Instructions) for additional information. Follow-Up 1. hospital medical biller of [facility] within 48 hours. 2. [facility] Pulmonary - any provider - within 2-3 weeks or first available - diagnosis - suspected PIPPA, suspected COPD. Needs sleep study and PFTs. 3. [facility] Cardiology - Dr. Tae Rose or any other provider - within 1 week if possible. Additional Copies To Robinson Azar; Reji Rose M.D.; Kori Parmar D.O.
== END 2017-08-29 14:06 | DRG 280 ==
LOC: EDBD 12:11 → C.EDC 12:12 → C.2T 17:08 → ENRESERV 18:13 → C.MSICU 08-25 20:20 → C.2T 08-26 16:08 → ENRESERV 08-27 15:49 → C.MS2W 08-27 16:35
PROVIDERS: ADMIT Internal Medicine; ATTEND Internal Medicine
DX: I13.0 Hypertensive heart and chronic kidney disease with heart failure and stage 1 through stage 4 chronic kidney disease, or unspecified chronic kidney disease (principal); I50.33 Acute on chronic diastolic (congestive) heart failure; I21.A1 Myocardial infarction type 2; J96.01 Acute respiratory failure with hypoxia; J96.02 Acute respiratory failure with hypercapnia; N17.9 Acute kidney failure, unspecified; E66.2 Morbid (severe) obesity with alveolar hypoventilation; Z68.41 Body mass index [BMI] 40.0-44.9, adult; I50.814 Right heart failure due to left heart failure; I25.118 Atherosclerotic heart disease of native coronary artery with other forms of angina pectoris; R47.81 Slurred speech; N18.3 Chronic kidney disease, stage 3 (moderate); E78.5 Hyperlipidemia, unspecified; E11.22 Type 2 diabetes mellitus with diabetic chronic kidney disease; E11.65 Type 2 diabetes mellitus with hyperglycemia; K21.9 Gastro-esophageal reflux disease without esophagitis; R41.0 Disorientation, unspecified; E83.42 Hypomagnesemia; D64.9 Anemia, unspecified; C61 Malignant neoplasm of prostate; N40.0 Benign prostatic hyperplasia without lower urinary tract symptoms; Z79.02 Long term (current) use of antithrombotics/antiplatelets; Z79.82 Long term (current) use of aspirin; Z79.84 Long term (current) use of oral hypoglycemic drugs; Z79.899 Other long term (current) drug therapy; Z87.891 Personal history of nicotine dependence; Z88.1 Allergy status to other antibiotic agents; Z88.8 Allergy status to other drugs, medicaments and biological substances; Z83.3 Family history of diabetes mellitus; Z95.1 Presence of aortocoronary bypass graft; T40.2X5A Adverse effect of other opioids, initial encounter

== ENCOUNTER → 2017-08-23 | Outpatient (CLI) | payer OTHER ==
[~2017-08-23] MED LIST changes: +ASPI81TA28 PO; +BUME1TAB PO; +CALC-51 PO; +CLOP1TAB15 PO; +FRRS300 PO; +IPRASOL4 INH; +MGNO400 PO; +OXGN; +SYMIN INH; +VLTG EXT
[2017-08-23 11:07] LABS: BASO % 0.3 %; BASO ABS # 0.02 K/uL (0-0.2); EOS % 1.8 %; EOS ABS # 0.11 K/uL (0-0.5); HEMATOCRIT 28.3 % (42-52); HEMOGLOBIN 8.6 g/dL (14.0-18.0); IG# 0.01 K/uL (0.00-0.02); LYMPH % 5.8 %; LYMPH ABS # 0.35 K/uL (1.2-3.4); MEAN CELL VOLUME 90.1 fL (80-100); MEAN CORPUSCULAR HEMOGLOBIN 27.4 pg (25-34); MEAN CORPUSCULAR HGB CONC 30.4 g/dl (32-36); MEAN PLATELET VOLUME 10.1 fL (7.4-10.4); MONO ABS # 0.42 K/uL (0.11-0.59); NEUT % 84.9 %; NEUT ABS # 5.08 K/uL (1.4-6.5); PLATELET COUNT 274 K/uL (130-400); RED CELL DISTRIBUTION WIDTH CV 15.2 % (11.5-14.5); RED CELL DISTRIBUTION WIDTH SD 49.1 fL (36.4-46.3); WHITE BLOOD COUNT 5.99 K/uL (4.8-10.8)
== END | disposition home or self-care (01) ==
LOC: C.LABBC 08:59
PROVIDERS: ATTEND Family Medicine
DX: D64.9 Anemia, unspecified (principal); C61 Malignant neoplasm of prostate

== ENCOUNTER 2017-09-02 07:09 | Observation (INO) | payer OTHER ==
[~2017-09-02] VITALS: Ht 175.3 cm; Wt 127.8 kg
[2017-09-02] VITALS (7 sets, daily range): BP systolic 116–196; BP diastolic 73–119; PULSE 71–101; TEMP 36.3–36.7; O2SAT 93–96; Ht 175.3 cm; Wt 127.8 kg
[~2017-09-02 07:09] MED LIST changes: +ASPI81TA28 PO; +BUME1TAB PO; +CALC-51 PO; +CLOP1TAB15 PO; +FRRS300 PO; -GLUC15002 PO; -HYDR25TA5 PO; +IPRASOL4 INH; +MGNO400 PO; +OXGN; -OXYBUTYNIN PO; -OXYC-738 PO; -SAW450CA5 PO; +SYMIN INH; -TNR50 PO; +VLTG EXT
--- NOTE | 2017-09-02 07:38 | EMERGENCY ROOM VISIT NOTE ---
History Report prepared by Rosalinda: Kvng Monahan Under the Supervision of: Dr. Reji Arnett D.O. First contact with patient: 07:10 Chief Complaint: CHEST PAIN Stated Complaint: CHEST PAIN History of Present Illness The patient is a 82 year old male who presents to the Emergency Room with complaints of left-sided chest pain that began three hours ago. His pain has now resolved. He has a past medical history of cardiac disease and CHF. The patient woke up this morning with this pain in his chest. He then called EMS to evaluate him. He was given 3 Nitroglycerin which completely resolved his pain. Normally he only needs 1 NTG to resolve his chest pains. He notes that he has lost about 30 pounds in the past several weeks. He notes that he was recently in the hospital for increased fluid retention. 12 years ago, physicians attempted to place a cardiac stent but were unable to. He denies any abnormal associated symptoms at this time. Source of History: patient Onset: three hours ago Position: chest (left) Symptom Intensity: moderate Quality: sharp Timing: resolved Modifying Factors (Relieving): other (Nitroglycerin) Note: He notes that he has been losing weight recently. He denies any other abnormal physical symptoms at this time. Review of Systems See HPI for pertinent positives & negatives. A total of 10 systems reviewed and were otherwise negative. 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 (16) Left ventricular diastolic dysfunction (17) Lower GI bleed (18) Myocardial infarction (19) Obesity (20) Osteoarthritis (21) REFLUX ESOPHAGITIS (22) Urinary tract infection Family History Diabetes mellitus FH: prostate cancer FHx: colon cancer Hypertension Social History Smoking Status: Former Smoker Drug Use: none Marital Status: Housing Status: lives with family Occupation Status: retired Current/Historical Medications Scheduled Alfuzosin Hcl (Uroxatral), 10 MG PO QAM Aspirin (Aspirin Ec), 81 MG PO DAILY Atorvastatin (Lipitor), 40 MG PO HS Budesonide/Formoterol Fumarate (Symbicort 160-4.5 Mcg/Act), 2 PUFFS INH BID Bumetanide (Bumex), 1 MG PO QAM Calcium Carbonate-Vitamin D (Calcium), 2 TAB PO DAILY Clopidogrel (Plavix), 75 MG PO DAILY Diclofenac Sod (Voltaren), 1 APPLN EXT QID Dutasteride (Avodart), 0.5 MG PO QAM Esomeprazole Magnesium (Nexium), 40 MG PO QPM Ferrous Sulfate (Ferrous Sulfate), 325 MG PO TID Glimepiride (Glimepiride), 2 MG PO BID Home O2 Therapy (Oxygen), 2 LITERS NA HS Ipratropium-Albuterol (Duoneb), 3 ML INH Q6H Isosorbide Mononitrate Ext Rel (Imdur Ext Rel), 180 MG PO QPM Losartan Potassium (Cozaar), 100 MG PO QAM Magnesium Oxide (Magnesium-Oxide), 400 MG PO QAM Metformin Hcl (Glucophage), 1,000 MG PO BID Metformin Hcl (Glucophage), 500 MG PO WITH LUNCH Multivitamin (Multivitamin), 1 TAB PO QAM Niacin (Niacin), 2,000 MG PO QPM Potassium Chloride (Potassium Chloride Er), 20 MEQ PO QAM Scheduled PRN Nitroglycerin (Nitrostat), 0.4 MG UT UD PRN for Chest Pain Oxycodone Ir (Roxicodone Ir), 5 MG PO Q6H PRN for Pain Allergies Coded Allergies: Adhesives (Verified Allergy, Unknown, DRLINSEY TORE PT'S SKIN OFF, 09/02/17) Bee Venom (Verified Allergy, Unknown, SWELLING, 09/02/17) Naproxen (Verified Allergy, Unknown, 09/02/17) Amoxicillin (Verified Adverse Reaction, Unknown, CAUSES DIARRHEA, 09/02/17) Celecoxib (Verified Adverse Reaction, Unknown, gi bleed, 09/02/17) Diclofenac (Verified Adverse Reaction, Unknown, PT STATES GI UPSET PER DR GREEN, 09/02/17) Physical Exam Vital Signs Date Time Temp Pulse Resp B/P (MAP) Pulse Ox O2 Delivery O2 Flow Rate FiO2 09/02/17 12:09 85 09/02/17 12:07 85 09/02/17 11:30 82 20 146/70 94 Room Air 2/26/18 10:10 76 20 146/77 93 Room Air 09/02/17 09:19 85 20 160/85 95 09/02/17 08:36 87 20 174/109 95 Room Air 09/02/17 07:41 93 Room Air 09/02/17 07:19 93 Room Air 09/02/17 07:18 85 09/02/17 07:15 Room Air 09/02/17 07:11 36.6 83 20 157/90 93 Room Air Physical Exam GENERAL: Patient is awake, alert, and in no acute distress. Patient is resting comfortably and showing no signs of anxiety EYES: The conjunctivae are clear. The pupils are round and reactive. EARS, NOSE, MOUTH AND THROAT: The nose is without any evidence of any deformity. Mucous membranes are moist tongue is midline NECK: The neck is nontender and supple. RESPIRATORY: Diminished breath sounds to bilateral bases with rales as well. CARDIOVASCULAR: Regular rate and rhythm noted. There is some ectopy known to auscultation, but no definite murmurs were appreciated. normal S1 normal S2 GASTROINTESTINAL: The abdomen is soft. Bowel sounds are present in all quadrants. Abdomen is nontender MUSCULOSKELETAL/EXTREMITIES: There is no evidence of gross deformity full range of motion is noted in the hips and shoulders SKIN: There is pedal edema bilaterally. Left greater than right. Venous stasis changes to the LLE which the patient states is baseline. There is no obvious evidence of any rash. There are no petechiae, pallor or cyanosis noted. NEUROLOGIC: Patient is awake alert and oriented x3. Medical Decision & Procedures ER Provider Diagnostic Interpretation: Radiology results as stated below per my review and radiologist interpretation: CHEST ONE VIEW PORTABLE CLINICAL HISTORY: Chest pain. COMPARISON STUDY: Chest radiograph August 29, 2017. FINDINGS: Patient is rotated. There are median sternotomy wires and mediastinal surgical clips. No pneumothorax or pleural effusion is identified. There is no evidence for pulmonary edema. Mild cardiomegaly is noted. Mild left basilar opacity favors atelectasis. There is moderate to severe arthritis of the left glenohumeral joint. IMPRESSION: 1. Mild cardiomegaly without evidence for pulmonary edema. 2. Mild left basilar opacity. Atelectasis is favored. Electronically signed by: Chris Villegas M.D. 09/02/2017 8:12 AM Dictated Date/Time: 09/02/2017 8:10 AM Laboratory Results Test 09/02/17 07:40 Prothrombin Time 11.1 SECONDS (9.0-12.0) Prothromb Time International Ratio 1.1 (0.9-1.1) Activated Partial Thromboplast Time 26.4 SECONDS (21.0-31.0) Partial Thromboplastin Ratio 1.0 Direct Bilirubin 0.2 mg/dl (0-0.2) Total Creatine Kinase 72 U/L (39-308) Creatine Kinase MB 1.3 ng/ml (0.5-3.6) Creatine Kinase MB Ratio 1.8 (0-3.0) Lipase 109 U/L (73-393) Laboratory results per my review. Medications Administered Medications (Trade) Dose Ordered Sig/Jez Route Start Time Stop Time Status Last Admin Dose Admin Oxycodone HCl (Roxicodone Immediate Rel Tab) 5 mg NOW STAT PO 09/02/17 08:51 09/02/17 08:53 DC 09/02/17 09:13 5 MG Nitroglycerin (Nitrostat Tab) 0.4 mg UD PRN UT 09/02/17 13:00 10/02/17 12:59 09/02/17 17:32 0.4 MG Oxycodone HCl (Roxicodone Immediate Rel Tab) 5 mg Q6H PRN PO 09/02/17 13:00 09/16/17 12:59 09/03/17 11:47 5 MG ECG Per My Interpretation Indication: chest pain Rate (beats per minute): 80 Rhythm: sinus rhythm Findings: PAC, RBBB Comparison ECG Date: 08/25/17 Change: no significant change Change: 2nd ECG: Sinus rhythm at 91, PVCs, RBBB, no change from earlier tracing ED Course 0710: The patient was evaluated in room B6. A complete history and physical examination were performed. 0851: Ordered Oxycodone HCl 5 mg PO 1000: The patient began having more chest pain, for which he took a NTG. It then resolved. 1024: I discussed the patient's case with Dr. Metzger of Cardiology at this time. He will come evaluate the patient in the ER. 1130: Dr. Metzger recommended further inpatient treatment. 1147: Upon reevaluation, the patient is resting. I discussed results and treatment plan with him. He verbalizes agreement and understanding. I spoke with Dr. Sixto Luna of the [facility] hospitalist group. The patient will be evaluated for further management and care. Medical Decision Differential diagnosis: Etiologies such as cardiac ischemia, aortic dissection, pulmonary embolism, pneumonia, pneumothorax, musculoskeletal, infections, pericarditis, myocarditis , esophageal rupture, gastrointestinal, as well as others were entertained. Nursing notes are reviewed. The patient is an 82-year-old male who presented to the emergency department for evaluation of chest discomfort. The patient has a history of angina. He takes nitroglycerin approximately once a month but normally only takes 1 pill with resolution of his symptoms. He had chest pain last evening as well as today. He started having chest discomfort and took multiple doses of nitroglycerin for the pain abated. He was sent to the emergency department from his personal [facility] for an evaluation. He was recently admitted to our facility for congestive heart failure. Initially he was pain-free and his EKG showed no significant changes. His initial cardiac biomarkers were negative as well. I discussed his case with his primary video and sound recorder. The patient had another episode of chest discomfort which resolved spontaneously. His primary cardiology group is very concerned that this could represent a change in his angina pattern. For this reason they recommended that we observe the patient for further management. I discussed this case with the [facility] hospitalist group. They have agreed to evaluate the patient in the emergency department for further management and disposition. Medication Reconcilliation Current Medication List: was personally reviewed by me (Nitroglycerin) Blood Pressure Screening Patient's blood pressure: Elevated blood pressure Referred to the hospitalist Consults Time Called: 0930 Consulting Physician: Dr. Metzger - Cardiology Returned Call: [phone] We discussed the patient's case. He will come evaluate the patient in the ER. He then recommended further evaluation for the patient as an inpatient. Additional Consults: Time Called: 1140 Consulted Physician: Dr. Sixto Luna - [facility] Returned Call: [phone] Additional Comments: I discussed the patient's case with him. The patient will be evaluated for further management. Impression Primary Impression: Angina Additional Impression: Left sided chest pain Scribe Attestation The scribe's documentation has been prepared under my direction and personally reviewed by me in its entirety. I confirm that the note above accurately reflects all work, treatment, procedures, and medical decision making performed by me. Departure Information Dispostion Being Evaluated By Hospitalist Referrals Kori Parmar D.O. (PCP) Patient Instructions My [facility] Problem Qualifiers
[2017-09-02 07:49] LABS: BASO % 0.4 %; BASO ABS # 0.02 K/uL (0-0.2); EOS % 5.5 %; EOS ABS # 0.27 K/uL (0-0.5); HEMOGLOBIN 11.5 g/dL (14.0-18.0); LYMPH % 14.5 %; LYMPH ABS # 0.72 K/uL (1.2-3.4); MEAN CELL VOLUME 87.8 fL (80-100); MEAN CORPUSCULAR HGB CONC 31.9 g/dl (32-36); MEAN PLATELET VOLUME 9.8 fL (7.4-10.4); MONO % 10.9 %; MONO ABS # 0.54 K/uL (0.11-0.59); NEUT % 68.7 %; PLATELET COUNT 232 K/uL (130-400); RED CELL DISTRIBUTION WIDTH CV 16.3 % (11.5-14.5); RED CELL DISTRIBUTION WIDTH SD 51.2 fL (36.4-46.3); WHITE BLOOD COUNT 4.95 K/uL (4.8-10.8)
[2017-09-02 08:01] LABS: INR 1.1 (0.9-1.1); PTT PATIENT 26.4 SECONDS (21.0-31.0)
[2017-09-02 08:05] LABS: ALBUMIN 3.2 gm/dl (3.4-5.0); BLOOD UREA NITROGEN 30 mg/dl (7-18); CALCIUM 9.1 mg/dl (8.5-10.1); CARBON DIOXIDE 31 mmol/L (21-32); CREATININE 1.28 mg/dl (0.60-1.40); GLUCOSE 140 mg/dl (70-99); LIPASE 109 U/L (73-393); POTASSIUM 3.6 mmol/L (3.5-5.1); SODIUM 137 mmol/L (136-145)
[2017-09-02 08:10] LABS: ALKALINE PHOSPHATASE 77 U/L (45-117); ALT/SGPT 36 U/L (12-78); AST/SGOT 26 U/L (15-37); CKMB 1.3 ng/ml (0.5-3.6); TOTAL PROTEIN 6.7 gm/dl (6.4-8.2)
--- NOTE | 2017-09-02 08:13 | DIAGNOSTIC IMAGING REPORT ---
CHEST ONE VIEW PORTABLE CLINICAL HISTORY: Chest pain. COMPARISON STUDY: Chest radiograph August 29, 2017. FINDINGS: Patient is rotated. There are median sternotomy wires and mediastinal surgical clips. No pneumothorax or pleural effusion is identified. There is no evidence for pulmonary edema. Mild cardiomegaly is noted. Mild left basilar opacity favors atelectasis. There is moderate to severe arthritis of the left glenohumeral joint. IMPRESSION: 1. Mild cardiomegaly without evidence for pulmonary edema. 2. Mild left basilar opacity. Atelectasis is favored. Electronically signed by: Chris Villegas M.D. 09/02/2017 8:12 AM Dictated Date/Time: 09/02/2017 8:10 AM
[2017-09-02] MEDS ORDERED: OXYCODONE HCL IR 5 MG TAB (IMMEDIATE RELEASE) PO STA (08:51)
--- NOTE | 2017-09-02 12:22 | Cardiology Consultation ---
Cardiology Consultation Date of Consultation: Sep 02, 2017. Requesting Physician: Melquiades Reason for Consultation: Chest Pain Pt evaluation today including: conversation w/ patient, conversation w/ family , physical exam, chart review, lab review, review of studies, conversation w/ political consultant, review of inpatient medication list History of Present Illness Patient is an 82-year-old gentleman with a longstanding history of coronary artery disease and congestive heart failure who was recently discharged from [facility] 4 days ago. At that time the patient was admitted for symptoms of pulmonary vascular congestion. He also experienced a period respiratory distress related to narcotic administration. Based on persistent symptoms of fatigue and deconditioning he was discharged to [facility] for rehabilitation. At the time of discharge the patient was feeling well. His was present for today's interview also stated that he looked quite well. Over the course of the weekend the patient did notice some fatigue and weakness. He was able to participate in some physical therapy yesterday without specific symptoms. This morning around 3:00 a.m. the patient was woken with chest discomfort. He recognizes this chest pain and classified as angina. He took a nitroglycerin and it appeared to subside. However shortly afterwards the pain recurred and was not relieved with a single nitroglycerin. He required a 2nd administration and an ambulance was called. The patient was brought to [facility] and at the time of presentation is symptoms had resolved. He feels that his period of chest pain lasted less than 20 minutes total. This is very similar in character and nature to other episodes he has had. He reports having had a similar episode approximately 2 weeks ago. Generally speaking the symptoms are relieved with nitroglycerin. While in the emergency room the patient stated that he had this 3rd episode of chest discomfort that was relieved spontaneously after a few minutes. No medical therapy was provided for that episode. In general the patient is fairly sedentary individual. He is limited by his weight, sciatica and weakness. He is somewhat frustrated due to some increased fatigue and weakness over the past few months. He is very adamant that when he ambulates or performs physical activity he does not have symptoms of chest discomfort. He has not been reporting symptoms of breathing difficulty. He denies orthopnea or paroxysmal nocturnal dyspnea. He is not aware of any palpitations. At the time of this interview he claims to be feeling well. He is not currently have any symptoms of chest discomfort. He currently denies any breathing difficulty. Past Medical/Surgical History Coronary artery disease Myocardial infarction 1989 subsequent PTCA Coronary artery bypass grafting in 1994, talavera to LAD, saphenous vein graft to diagonal, saphenous vein graft to OM, saphenous vein graft to PDA Catheterization 2004: Occluded graft to diagonal, 100% occlusion of the left main, 100% occlusion of the right coronary artery, nonobstructive disease in the vein graft to the right coronary artery Chronic stable angina Prostate cancer Diabetes mellitus Hyperlipidemia Hypertension Nephrolithiasis Obesity Past surgical history Coronary artery bypass grafting x4 1995 Breath surgery Right thumb repair Foot, foot and hip surgery (replacement) Family History Diabetes mellitus FH: prostate cancer FHx: colon cancer Hypertension Noncontributory given his advanced age Social History Smoking Status: Former Smoker History of Alcohol Use: No Currently angina for [facility] for rehabilitation Review of Systems Per HPI. No recent constitutional symptoms such as fevers or chills. All Other Systems: Reviewed and Negative Allergies Coded Allergies: Adhesives (Verified Allergy, Unknown, DRAPES TORE PT'S SKIN OFF, 09/02/17) Bee Venom (Verified Allergy, Unknown, SWELLING, 09/02/17) Naproxen (Verified Allergy, Unknown, 09/02/17) Amoxicillin (Verified Adverse Reaction, Unknown, CAUSES DIARRHEA, 09/02/17) Celecoxib (Verified Adverse Reaction, Unknown, gi bleed, 09/02/17) Diclofenac (Verified Adverse Reaction, Unknown, PT STATES GI UPSET PER DR GREEN, 09/02/17) Physical Exam Vital Signs Past 12 Hours Date Time Temp Pulse Resp B/P (MAP) Pulse Ox O2 Delivery O2 Flow Rate FiO2 09/02/17 11:30 82 20 146/70 94 Room Air 09/02/17 10:10 76 20 146/77 93 Room Air 09/02/17 09:19 85 20 160/85 95 09/02/17 08:36 87 20 174/109 95 Room Air 09/02/17 07:41 93 Room Air 09/02/17 07:19 93 Room Air 09/02/17 07:18 85 09/02/17 07:15 Room Air 09/02/17 07:11 36.6 83 20 157/90 93 Room Air The patient is alert and oriented. Mood and affect appeared normal. He answered all questions appropriately. Obese HEENT: Pupils are equal and reactive to light and accommodation. Extraocular movements are intact. The sclerae are anicteric. Neuro: Cranial nerves intact Neck: Patient's neck is supple. He has palpable carotid pulses bilaterally without bruits on auscultation. There is no evidence of jugular venous distention. The thyroid is not enlarged. Lungs: Clear to auscultation bilaterally. He has good air movement without use of accessory muscles. No rales wheezes or rhonchi. Cardiac: Heart demonstrates a regular rate and rhythm with occasional ectopy. Normal S1 and S2. Systolic ejection murmur appreciated. Chest: Well-healed sternotomy scar Pulses: The patient has palpable radial pulses bilaterally that are equal in intensity Extremities: There was no evidence of hypoperfusion. There is no cyanosis or clubbing. There is severe bilateral lower extremity edema that is nonpitting. Skin: I did not appreciate any rashes on examination today. Scar on the right wrist. He has some erythema on the tibial aspect of both lower extremities Data Laboratory Results: Last 24 Hours Test 09/02/17 07:40 White Blood Count 4.95 K/uL Red Blood Count 4.10 M/uL Hemoglobin 11.5 g/dL Hematocrit 36.0 % Mean Corpuscular Volume 87.8 fL Mean Corpuscular Hemoglobin 28.0 pg Mean Corpuscular Hemoglobin Concent 31.9 g/dl Platelet Count 232 K/uL Mean Platelet Volume 9.8 fL Neutrophils (%) (Auto) 68.7 % Lymphocytes (%) (Auto) 14.5 % Monocytes (%) (Auto) 10.9 % Eosinophils (%) (Auto) 5.5 % Basophils (%) (Auto) 0.4 % Neutrophils # (Auto) 3.40 K/uL Lymphocytes # (Auto) 0.72 K/uL Monocytes # (Auto) 0.54 K/uL Eosinophils # (Auto) 0.27 K/uL Basophils # (Auto) 0.02 K/uL RDW Standard Deviation 51.2 fL RDW Coefficient of Variation 16.3 % Immature Granulocyte % (Auto) 0.0 % Immature Granulocyte # (Auto) 0.00 K/uL Prothrombin Time 11.1 SECONDS Prothromb Time International Ratio 1.1 Activated Partial Thromboplast Time 26.4 SECONDS Partial Thromboplastin Ratio 1.0 Sodium Level 137 mmol/L Potassium Level 3.6 mmol/L Chloride Level 99 mmol/L Carbon Dioxide Level 31 mmol/L Anion Gap 8.0 mmol/L Blood Urea Nitrogen 30 mg/dl Creatinine 1.28 mg/dl Est Creatinine Clear Calc Drug Dose 57.9 ml/min Estimated GFR () 59.6 Estimated GFR (Non- 51.4 BUN/Creatinine Ratio 23.8 Random Glucose 140 mg/dl Calcium Level 9.1 mg/dl Total Bilirubin 0.6 mg/dl Direct Bilirubin 0.2 mg/dl Aspartate Amino Transf (AST/SGOT) 26 U/L Alanine Aminotransferase (ALT/SGPT) 36 U/L Alkaline Phosphatase 77 U/L Total Creatine Kinase 72 U/L Creatine Kinase MB 1.3 ng/ml Creatine Kinase MB Ratio 1.8 Troponin I < 0.015 ng/ml Total Protein 6.7 gm/dl Albumin 3.2 gm/dl Lipase 109 U/L Imaging: Chest x-ray done demonstrate any acute cardiopulmonary disease EKG: Normal sinus rhythm with occasional PACs and right bundle branch block Echocardiogram performed 08/24/2017 with preserved LV systolic function. Some borderline right ventricular failure with elevated pulmonary pressures Assessment & Plan 1. Chest pain: Patient presents with symptoms of chest pain that he characterizes angina. He appears to have a longstanding history of similar symptoms. Curiously, he reports the symptoms occurring exclusively at rest most commonly in the morning hours like today. He reportedly does not have exertional symptoms although his medical record would suggest otherwise. There has been no elevation in his cardiac biomarkers. The episode itself was fairly brief in duration but recurrent throughout the morning. I think would be reasonable to provide him a period of observation to better characterize this symptom. Despite his extensive coronary history is very possible this is not represent angina. He was recently admitted for symptoms of congestive heart failure and at that time had markedly elevated biomarkers. It seems his beta- pallavi was also was discontinued at his last hospitalization due to some concerns over bradycardia. However, his heart rate seems normal currently and I think beta-blockade has some benefit both for his known history of AL as well as angina. Would advocate re-initiated beta-blockade to have perhaps 12.5 mg metoprolol 3 times daily and monitoring his response. Ideally he would be placed on an anticoagulant for these recurrent symptoms, but given his history of gastrointestinal hemorrhage in the absence of unknown source I think would be safe to defer anticoagulation unless he has more frequent episodes or there is evidence of myocardial damage. 2. Coronary artery disease: This is known to be chronic and severe. Prior evaluation in 2013 at the [facility] suggest that he was not a good candidate for any intervention. Certainly if he has significant coronary syndrome re-evaluation could be undertaken in order to determine if there has been compromise to 1 of his graft. However, in the absence of a compelling indication for angiography I think medical management is still the preferred treatment. As noted above reinstitution of his beta-pallavi may be beneficial in this regard. Ranolazine and amlodipine may also be options for recurrent symptoms. 3. Congestive heart failure: He has preserved LV systolic function. He is presumed to have an element of diastolic dysfunction during his last admission. He has no complaints currently of breathing difficulty although he has been noted on occasion have reduced oxygenation. This may be more related to an element of apnea rather than pulmonary vascular congestion.
[2017-09-02] MEDS ORDERED: NITROGLYCERIN 0.4 MG SL PER TAB CHARGE UT PRN (13:00)
[2017-09-02] MEDS ORDERED: GLUCOSE 10 TABS/TUBE PO PRN (13:00)
[2017-09-02] MEDS ORDERED: ZOLPIDEM TARTRATE 5 MG TAB PO PRN ×2 (13:00)
[2017-09-02] MEDS ORDERED: POLYETHYLENE (MIRALAX) 17 GM PACK PO PRN (13:00)
[2017-09-02] MEDS ORDERED: MAGNESIUM HYDROXIDE SUSP 30 ML UDC PO PRN (13:00)
[2017-09-02] MEDS ORDERED: ALUMINUM/MAGNESIUM/SIMETH (MAALOX MAX) 30 ML UDC PO PRN (13:00)
[2017-09-02] MEDS ORDERED: NITROGLYCERIN 0.4 MG SL PER TAB CHARGE SL PRN (13:00)
[2017-09-02] MEDS ORDERED: GLUCAGON FOR INJ 1 MG VIAL SQ PRN (13:00)
[2017-09-02] MEDS ORDERED: ONDANSETRON INJ 2 MG/ML 2 ML VIAL IV PRN (13:00)
[2017-09-02] MEDS ORDERED: GLUCOSE 40% GEL 15 GM TUBE PO PRN (13:00)
[2017-09-02] MEDS ORDERED: DEXTROSE 50% 50 ML SYR IV PRN (13:00)
[2017-09-02] MEDS ORDERED: ACETAMINOPHEN 325 MG TAB PO PRN (13:00)
[2017-09-02] MEDS ORDERED: IV FLUIDS COMPLETED PRN (14:45)
--- NOTE | 2017-09-02 15:02 | History and Physical ---
History & Physical Date & Time of Service: Sep 02, 2017 at 14:48 Chief Complaint: Chest Pain Primary Care Physician: Kori Parmar D.O. History of Present Illness Source: patient, hospital records 82 years old man with past medical history of CAD status post CABG in 1994 followed by cardiac catheterization in that indicated occlusion in his grafts. also has Hx of HTN, Dyslipidemia, diabetes mellitus on oral and obesity. recently he was admitted to the hospital with pulmonary congestion and was discharged to [facility] for rehab. today he walk up at 3 am with substernal chest pain that he graded it 9 out of 10, describes it as heaviness/ squeezing. Pain was localized in the substernal area and was slightly referred to his neck. Was not referred to left shoulder or arm. Not associated with any shortness of breath, dizziness, diaphoresis or presyncope. Patient asked that the staff to give him sublingual nitro which after 2 sublingual nitro pain completely subsided, total time 15 minutes. Patient went back to sleep and then woke up an hour later with the same chest pain that did not subside with one sublingual nitro. Patient had a second nitroglycerin in the ambulance and his way to the hospital and the chest pain subsided, they brought him to the hospital he was chest pain-free then but while manager china evaluating him he developed chest pain again that subsided without nitroglycerin. Family History Diabetes mellitus FH: prostate cancer FHx: colon cancer Hypertension Social History Smoking Status: Former Smoker Drug Use: none Marital Status: Housing status: lives with significant other Occupational Status: retired Immunizations History of Influenza Vaccine: No History of Tetanus Vaccine?: Unknown History of Pneumococcal: Yes Pneumococcal Date: Apr 26, 2004 History of Hepatitis B Vaccine: No Multi-Drug Resistant Organisms History of MDRO: No Allergies Coded Allergies: Adhesives (Verified Allergy, Unknown, CATARINA ARCEO PT'S SKIN OFF, 09/02/17) Bee Venom (Verified Allergy, Unknown, SWELLING, 09/02/17) Naproxen (Verified Allergy, Unknown, 09/02/17) Amoxicillin (Verified Adverse Reaction, Unknown, CAUSES DIARRHEA, 09/02/17) Celecoxib (Verified Adverse Reaction, Unknown, gi bleed, 09/02/17) Diclofenac (Verified Adverse Reaction, Unknown, PT STATES GI UPSET PER DR GREEN, 09/02/17) Home Medications Scheduled Alfuzosin Hcl (Uroxatral), 10 MG PO QAM Aspirin (Aspirin Ec), 81 MG PO DAILY Atorvastatin (Lipitor), 40 MG PO HS Budesonide/Formoterol Fumarate (Symbicort 160-4.5 Mcg/Act), 2 PUFFS INH BID Bumetanide (Bumex), 1 MG PO QAM Calcium Carbonate-Vitamin D (Calcium), 2 TAB PO DAILY Clopidogrel (Plavix), 75 MG PO DAILY Diclofenac Sod (Voltaren), 1 APPLN EXT QID Dutasteride (Avodart), 0.5 MG PO QAM Esomeprazole Magnesium (Nexium), 40 MG PO QPM Ferrous Sulfate (Ferrous Sulfate), 325 MG PO TID Glimepiride (Glimepiride), 2 MG PO BID Home O2 Therapy (Oxygen), 2 LITERS NA HS Ipratropium-Albuterol (Duoneb), 3 ML INH Q6H Isosorbide Mononitrate Ext Rel (Imdur Ext Rel), 180 MG PO QPM Losartan Potassium (Cozaar), 100 MG PO QAM Magnesium Oxide (Magnesium-Oxide), 400 MG PO QAM Metformin Hcl (Glucophage), 1,000 MG PO BID Metformin Hcl (Glucophage), 500 MG PO WITH LUNCH Multivitamin (Multivitamin), 1 TAB PO QAM Niacin (Niacin), 2,000 MG PO QPM Potassium Chloride (Potassium Chloride Er), 20 MEQ PO QAM Scheduled PRN Nitroglycerin (Nitrostat), 0.4 MG UT UD PRN for Chest Pain Oxycodone Ir (Roxicodone Ir), 5 MG PO Q6H PRN for Pain Review of Systems Review of system Constitutional: No fever / no chills / no sweats / no weakness / no fatigue Eyes: no blurring of vision / no eye pain / no discharge / no redness ENT: no hearing loss / no epistaxis /no swallowing problems Respiratory: no cough / no wheezing / no SOB / no hemoptysis Cardiovascular: As described in history of present illness, he had chest pain / no lower extremity edema / no palpitation Abdomen: no pain / no nausea / no vomiting / no constipation Musculoskeletal: no joint pain / no muscle pain / no joint swelling, bilateral lower extremity swelling Genitourinary: no dysuria / no incontinence / no urinary retention Neurologic: no focal weakness / no numbness/tingling / no ataxia Psychiatric: no depression symptoms / no anxiety / no insomnia Endocrine: no excessive thirst / no excessive urination Hematologic: no abnormal bleeding / no bruising / no LN swelling Skin: No rash / no pallor Physical Exam Vital Signs Date Time Temp Pulse Resp B/P (MAP) Pulse Ox O2 Delivery O2 Flow Rate FiO2 09/02/17 14:35 36.7 88 22 158/78 (104) 93 Room Air 09/02/17 14:00 77 20 168/84 93 Room Air 09/02/17 13:43 88 20 177/106 93 Room Air 09/02/17 13:05 93 Room Air 09/02/17 12:09 85 09/02/17 12:07 85 09/02/17 11:30 82 20 146/70 94 Room Air 09/02/17 10:10 76 20 146/77 93 Room Air 09/02/17 09:19 85 20 160/85 95 09/02/17 08:36 87 20 174/109 95 Room Air 09/02/17 07:41 93 Room Air 09/02/17 07:19 93 Room Air 09/02/17 07:18 85 09/02/17 07:15 Room Air 09/02/17 07:11 36.6 83 20 157/90 93 Room Air Physical examination General patient appears to be comfortable, not in acute distress, obese HEENT: Atraumatic , normocephalic /no jaundice /no pallor /anicteric /no dry mucous membrane /normal external ear inspection Neck: Supple /no swelling /central trach Heart: S1/S2 normal/regular rate and rhythm/no gallop /no rub /no murmur Lungs: Clear to auscultation bilaterally/normal chest with expansion/no rhonchi/ no rales/no wheezing/no use of accessory muscles of respiration Abdomen: Soft/nontender/no guarding/no rebound/no organomegaly/no pulsatile mass Musculoskeletal: No swelling/no edema/no tenderness/normal range of motion Neuro exam: Awake alert oriented 3/cranial nerves II through XII appear to be intact/sensation intact/moves all extremities/no abnormal movements Psychiatric evaluation: No depressed mood/normal affect Skin: No rash on exposed skin area/no erythema Extremity: +2 lymphedema left more than right, with some erythema on the anterior surface of the chin of the tibia,/no clubbing or cyanosis Endocrine/lymphatic: No obvious lymphadenopathy /no lymphedema Diagnostics Laboratory Results Results Past 24 Hours Test 09/02/17 07:40 09/02/17 13:47 Range/Units White Blood Count 4.95 4.8-10.8 K/uL Red Blood Count 4.10 4.7-6.1 M/uL Hemoglobin 11.5 14.0-18.0 g/dL Hematocrit 36.0 42-52 % Mean Corpuscular Volume 87.8 80-100 fL Mean Corpuscular Hemoglobin 28.0 25-34 pg Mean Corpuscular Hemoglobin Concent 31.9 32-36 g/dl Platelet Count 232 130-400 K/uL Mean Platelet Volume 9.8 7.4-10.4 fL Neutrophils (%) (Auto) 68.7 % Lymphocytes (%) (Auto) 14.5 % Monocytes (%) (Auto) 10.9 % Eosinophils (%) (Auto) 5.5 % Basophils (%) (Auto) 0.4 % Neutrophils # (Auto) 3.40 1.4-6.5 K/uL Lymphocytes # (Auto) 0.72 1.2-3.4 K/uL Monocytes # (Auto) 0.54 0.11-0.59 K/uL Eosinophils # (Auto) 0.27 0-0.5 K/uL Basophils # (Auto) 0.02 0-0.2 K/uL RDW Standard Deviation 51.2 36.4-46.3 fL RDW Coefficient of Variation 16.3 11.5-14.5 % Immature Granulocyte % (Auto) 0.0 % Immature Granulocyte # (Auto) 0.00 0.00-0.02 K/uL Prothrombin Time 11.1 9.0-12.0 SECONDS Prothromb Time International Ratio 1.1 0.9-1.1 Activated Partial Thromboplast Time 26.4 21.0-31.0 SECONDS Partial Thromboplastin Ratio 1.0 Sodium Level 137 136-145 mmol/L Potassium Level 3.6 3.5-5.1 mmol/L Chloride Level 99 98-107 mmol/L Carbon Dioxide Level 31 21-32 mmol/L Anion Gap 8.0 3-11 mmol/L Blood Urea Nitrogen 30 7-18 mg/dl Creatinine 1.28 0.60-1.40 mg/dl Est Creatinine Clear Calc Drug Dose 57.9 ml/min Estimated GFR () 59.6 Estimated GFR (Non- 51.4 BUN/Creatinine Ratio 23.8 10-20 Random Glucose 140 70-99 mg/dl Calcium Level 9.1 8.5-10.1 mg/dl Total Bilirubin 0.6 0.2-1 mg/dl Direct Bilirubin 0.2 0-0.2 mg/dl Aspartate Amino Transf (AST/SGOT) 26 15-37 U/L Alanine Aminotransferase (ALT/SGPT) 36 12-78 U/L Alkaline Phosphatase 77 45-117 U/L Total Creatine Kinase 72 39-308 U/L Creatine Kinase MB 1.3 0.5-3.6 ng/ml Creatine Kinase MB Ratio 1.8 0-3.0 Troponin I < 0.015 0.016 0-0.045 ng/ml Total Protein 6.7 6.4-8.2 gm/dl Albumin 3.2 3.4-5.0 gm/dl Lipase 109 73-393 U/L Impression Assessment and Plan Assessment Chest pain rule out ACS Coronary artery disease status post CABG 4 in 1994 status post chronic catheterization in 2003 that revealed most of the grafts are occluded Bilateral lymphedema with left lower extremity greater than right lower extremity Chronic stable angina Diabetes mellitus on oral hypoglycemic Hypertension Dyslipidemia History of prostate cancer Morbid obesity Nephrolithiasis Clinically suspected obstructive sleep apnea Plan admit to telemetry obtain serial cardiac enz NTG SL/topical prn CP consult manager china pain management Check hemoglobin A1c/lipids to stratify patient risk factors repeat EKG prn chest pain Ultrasound lower extremity rule out DVT Advanced Directives Existing Living Will: Yes Existing Power of Spring Salvage Worker: Yes Resuscitation Status FULL RESUSCITATION VTE Prophylaxis VTE Risk Assessment Done? Y/N: Yes Risk Level: Moderate
[2017-09-02] MEDS: ALBUT/IPRATROP 3MG/0.5MG NEB 3 ML VIAL INH SCH ×2 (15:38→19:42)
[2017-09-02] MEDS: AVODART~ORDER AWAITING ACTION SCH ×2 (16:00→23:49)
[2017-09-02] MEDS: METOPROLOL TARTRATE 25 MG TAB PO SCH ×2 (16:30→20:52)
[2017-09-02] MEDS: OXYCODONE HCL IR 5 MG TAB (IMMEDIATE RELEASE) PO PRN ×2 (16:32→22:38)
[2017-09-02] MEDS: FERROUS SULFATE 325 MG TAB PO SCH (16:34)
[2017-09-02] MEDS: DICLOFENAC SOD 1% GEL 100 GM TUBE EXT SCH ×2 (16:34→20:47)
[2017-09-02] MEDS: NITROGLYCERIN 2% OINTMENT 30GM TUBE EXT SCH ×2 (17:44→23:52)
[2017-09-02] MEDS: INSULIN ASPART 100 UNITS/ML 3 ML PEN SC SCH ×2 (17:48→20:57)
[2017-09-02] MEDS: BUDESONIDE/FORMOTEROL FUMARATE 160/4.5 60 PUFFS/INHALER INH SCH (20:47)
[2017-09-02] MEDS: ISOSORBIDE MONONITRATE 60 MG TABCR PO SCH (20:48)
[2017-09-02] MEDS: ATORVASTATIN 40 MG TAB PO SCH (20:51)
[2017-09-02] MEDS: PANTOprazole SOD 40 MG TAB PO SCH (20:52)
[2017-09-02] MEDS: HEPARIN SOD 5000 UNIT/0.5 ML CARP SQ SCH (20:57)
[2017-09-03] VITALS (9 sets, daily range): BP systolic 102–161; BP diastolic 60–85; PULSE 55–79; TEMP 36.5–36.8; O2SAT 88–94
[2017-09-03] MEDS: ALBUT/IPRATROP 3MG/0.5MG NEB 3 ML VIAL INH SCH ×4 (02:15→19:50)
[2017-09-03] MEDS: OXYCODONE HCL IR 5 MG TAB (IMMEDIATE RELEASE) PO PRN ×3 (05:10→17:59)
[2017-09-03] MEDS: NITROGLYCERIN 2% OINTMENT 30GM TUBE EXT SCH (05:17)
[2017-09-03] MEDS: HEPARIN SOD 5000 UNIT/0.5 ML CARP SQ SCH ×3 (05:18→21:07)
[2017-09-03 06:59] LABS: BASO % 0.6 %; BASO ABS # 0.03 K/uL (0-0.2); EOS % 4.2 %; EOS ABS # 0.22 K/uL (0-0.5); HEMATOCRIT 35.3 % (42-52); HEMOGLOBIN 11.4 g/dL (14.0-18.0); IG# 0.01 K/uL (0.00-0.02); LYMPH % 13.4 %; MEAN CELL VOLUME 87.2 fL (80-100); MEAN CORPUSCULAR HEMOGLOBIN 28.1 pg (25-34); MEAN CORPUSCULAR HGB CONC 32.3 g/dl (32-36); MEAN PLATELET VOLUME 9.5 fL (7.4-10.4); MONO % 11.1 %; MONO ABS # 0.58 K/uL (0.11-0.59); NEUT % 70.5 %; NEUT ABS # 3.69 K/uL (1.4-6.5); PLATELET COUNT 210 K/uL (130-400); RED CELL DISTRIBUTION WIDTH CV 16.6 % (11.5-14.5); RED CELL DISTRIBUTION WIDTH SD 52.3 fL (36.4-46.3); WHITE BLOOD COUNT 5.23 K/uL (4.8-10.8)
[2017-09-03 07:17] LABS: HEMOGLOBIN A1C 7.1 % (4.5-5.6)
[2017-09-03 07:30] LABS: ALBUMIN 3.1 gm/dl (3.4-5.0); CALCIUM 8.8 mg/dl (8.5-10.1); CREATININE 1.04 mg/dl (0.60-1.40); POTASSIUM 3.5 mmol/L (3.5-5.1)
[2017-09-03 07:34] LABS: TOTAL PROTEIN 6.5 gm/dl (6.4-8.2)
[2017-09-03] MEDS: AVODART~ORDER AWAITING ACTION SCH ×3 (08:00→23:33)
[2017-09-03] MEDS: INSULIN ASPART 100 UNITS/ML 3 ML PEN SC SCH ×4 (08:22→21:06)
[2017-09-03] MEDS: DICLOFENAC SOD 1% GEL 100 GM TUBE EXT SCH ×4 (08:28→20:56)
[2017-09-03] MEDS: POTASSIUM CHLORIDE 20 MEQ TABCR PO SCH (08:29)
[2017-09-03] MEDS: CLOPIDOGREL BISULFATE 75 MG TAB PO SCH (08:29)
[2017-09-03] MEDS: BUMETANIDE 1 MG TAB PO SCH (08:29)
[2017-09-03] MEDS: MULTIVITAMIN TAB PO SCH (08:29)
[2017-09-03] MEDS: BUDESONIDE/FORMOTEROL FUMARATE 160/4.5 60 PUFFS/INHALER INH SCH ×2 (08:30→20:57)
[2017-09-03] MEDS: ASPIRIN 81 MG ECTAB PO SCH (08:30)
[2017-09-03] MEDS: ALFUZosin TAB 10 MG TAB PO SCH (08:30)
[2017-09-03] MEDS: FERROUS SULFATE 325 MG TAB PO SCH ×3 (08:30→17:22)
[2017-09-03] MEDS: MAGNESIUM OXIDE 400 MG TAB PO SCH (08:30)
--- NOTE | 2017-09-03 09:45 | Cardiology Follow-Up ---
Subjective Date of Service: Sep 03, 2017. Pt evaluation today including: conversation w/ patient, physical exam, chart review, lab review, review of studies, review of inpatient medication list History of Present Illness The patient reported 1 additional episode of chest discomfort yesterday after eating dinner. He states this was unusual only in the sense of its timing. He resolved quite quickly. He has not had any discomfort since. He has not been very mobile. He is hungry for breakfast this morning. Otherwise no complaints. Social History Smoking Status: Former Smoker History of Alcohol Use: No Review of Systems Per HPI. No recent constitutional symptoms such as fevers or chills. Objective Vital Signs Past 12 Hours Date Time Temp Pulse Resp B/P (MAP) Pulse Ox O2 Delivery O2 Flow Rate FiO2 09/03/17 08:00 Room Air 09/03/17 07:32 36.5 79 20 161/85 (110) 91 Room Air 09/03/17 07:10 68 18 93 Room Air 09/03/17 04:00 Room Air 09/03/17 03:41 36.6 71 18 131/75 (93) 91 Room Air 09/03/17 00:00 Room Air 09/02/17 23:50 36.3 71 18 116/73 (87) 96 Room Air Last Recorded Weight-Kilograms: 127.900 Physical Exam The patient is alert and oriented. Mood and affect appeared normal. He answered all questions appropriately. Obese HEENT: Pupils are equal and reactive to light and accommodation. Extraocular movements are intact. The sclerae are anicteric. Neuro: Cranial nerves intact Neck: Patient's neck is supple. He has palpable carotid pulses bilaterally without bruits on auscultation. There is no evidence of jugular venous distention. The thyroid is not enlarged. Lungs: Clear to auscultation bilaterally. He has good air movement without use of accessory muscles. No rales wheezes or rhonchi. Cardiac: Heart demonstrates a regular rate and rhythm with occasional ectopy. Normal S1 and S2. Systolic ejection murmur appreciated. Chest: Well-healed sternotomy scar Pulses: The patient has palpable radial pulses bilaterally that are equal in intensity Extremities: There was no evidence of hypoperfusion. There is no cyanosis or clubbing. There is severe bilateral lower extremity edema that is nonpitting. Skin: I did not appreciate any rashes on examination today. Scar on the right wrist. He has some erythema on the tibial aspect of both lower extremities Data Laboratory Results: Last 24 Hours Test 09/02/17 13:47 09/02/17 16:06 09/02/17 19:18 09/02/17 20:20 Troponin I 0.016 ng/ml < 0.015 ng/ml Bedside Glucose 233 mg/dl 215 mg/dl Test 09/03/17 00:19 09/03/17 06:50 09/03/17 07:43 Troponin I < 0.015 ng/ml < 0.015 ng/ml White Blood Count 5.23 K/uL Red Blood Count 4.05 M/uL Hemoglobin 11.4 g/dL Hematocrit 35.3 % Mean Corpuscular Volume 87.2 fL Mean Corpuscular Hemoglobin 28.1 pg Mean Corpuscular Hemoglobin Concent 32.3 g/dl Platelet Count 210 K/uL Mean Platelet Volume 9.5 fL Neutrophils (%) (Auto) 70.5 % Lymphocytes (%) (Auto) 13.4 % Monocytes (%) (Auto) 11.1 % Eosinophils (%) (Auto) 4.2 % Basophils (%) (Auto) 0.6 % Neutrophils # (Auto) 3.69 K/uL Lymphocytes # (Auto) 0.70 K/uL Monocytes # (Auto) 0.58 K/uL Eosinophils # (Auto) 0.22 K/uL Basophils # (Auto) 0.03 K/uL RDW Standard Deviation 52.3 fL RDW Coefficient of Variation 16.6 % Immature Granulocyte % (Auto) 0.2 % Immature Granulocyte # (Auto) 0.01 K/uL Sodium Level 138 mmol/L Potassium Level 3.5 mmol/L Chloride Level 102 mmol/L Carbon Dioxide Level 30 mmol/L Anion Gap 6.0 mmol/L Blood Urea Nitrogen 23 mg/dl Creatinine 1.04 mg/dl Est Creatinine Clear Calc Drug Dose 71.3 ml/min Estimated GFR () 76.6 Estimated GFR (Non- 66.1 BUN/Creatinine Ratio 22.2 Random Glucose 167 mg/dl Estimated Average Glucose 157 mg/dl Hemoglobin A1c 7.1 % Calcium Level 8.8 mg/dl Magnesium Level 1.6 mg/dl Total Bilirubin 0.6 mg/dl Aspartate Amino Transf (AST/SGOT) 24 U/L Alanine Aminotransferase (ALT/SGPT) 37 U/L Alkaline Phosphatase 78 U/L Total Protein 6.5 gm/dl Albumin 3.1 gm/dl Globulin 3.4 gm/dl Albumin/Globulin Ratio 0.9 Triglycerides Level 107 mg/dl Cholesterol Level 102 mg/dl HDL Cholesterol 40 mg/dl LDL Cholesterol, Calculated 41 mg/dl VLDL Cholesterol, Calculated 21 mg/dl Cholesterol/HDL Ratio 2.6 Bedside Glucose 199 mg/dl Telemetry reviewed: Occasional ectopy, otherwise sinus Assessment and Plan 1. Chest pain: No evidence of myocardial ischemia. This is a distinct improvement from his last admission where he had elevated cardiac biomarkers. The episodes themselves are fairly brief and nonexertional. Unclear if this truly represents angina or some other noncardiac malady. He is noted to have severe coronary disease. I think attempting an increase in his anti anginal regimen would be worthwhile. He does appear to have an element of higher blood pressures and perhaps addition of amlodipine will help in both regards. An alternative would be ranolazine. I do not think any stress testing will be of value. The patient is known to have severe coronary disease in the past was not felt to be amenable to any intervention. He undoubtedly will have an abnormal stress test which I do not think provides any help with his management. 2. Coronary artery disease: This is known to be chronic and severe. Prior evaluation in 2013 at the [facility] suggest that he was not a good candidate for any intervention. Certainly if he has significant coronary syndrome re-evaluation could be undertaken in order to determine if there has been compromise to 1 of his graft. However, in the absence of a compelling indication for angiography I think medical management is still the preferred treatment. His beta-pallavi was reinstituted yesterday knee seems to be tolerating this well. We will continue to monitor him for evidence of bradycardia. 3. Congestive heart failure: He has preserved LV systolic function. He is presumed to have an element of diastolic dysfunction during his last admission. He has no complaints currently of breathing difficulty although he has been noted on occasion have reduced oxygenation. This may be more related to an element of apnea rather than pulmonary vascular congestion.
[2017-09-03] MEDS: METOPROLOL TARTRATE 25 MG TAB PO SCH ×3 (10:14→20:59)
[2017-09-03] MEDS: LOSARTAN POTASSIUM 50 MG TAB PO SCH (10:14)
[2017-09-03] MEDS ORDERED: MAGNESIUM SULFATE 1GM / D5W 1 GM in PREMIXED IN D5W 100 ML IV SCH (12:45)
[2017-09-03] MEDS: AMLODIPINE BESYLATE 5 MG TAB PO SCH (14:01)
[2017-09-03] MEDS ORDERED: NURSING VERBAL MED ORDER ONE (18:00)
--- NOTE | 2017-09-03 18:01 | Hospitalist Progress Note ---
Hospitalist Progress Note Date of Service Sep 03, 2017. Subjective Pt evaluation today including: conversation w/ patient, conversation w/ family ( on the phone), conversation w/ inside sales consultant (Cardiology) Patient reports having multiple episodes of what he calls angina yesterday. None so far today. He describes as substernal chest tightness and was relieved with nitroglycerin yesterday afternoon. He denies heartburn. No shortness of breath. He reports the Voltaren gel does not help so he has not been using it. And he reports to me that he declined the venous Doppler of his leg. He tells me that he refused BiPAP at [facility] and that he has not been getting oxygen either. Telemetry with sinus rhythm, sinus arrhythmia, and PVCs, no bradycardia All Other Systems: Reviewed and Negative Objective Vital Signs Date Time Temp Pulse Resp B/P (MAP) Pulse Ox O2 Delivery O2 Flow Rate FiO2 09/03/17 16:03 36.8 70 20 146/69 (94) 92 Room Air 09/03/17 16:00 Room Air 09/03/17 14:16 56 18 88 Room Air 09/03/17 12:00 Room Air 09/03/17 11:47 36.8 74 20 104/64 (77) 93 09/03/17 08:00 Room Air 09/03/17 07:32 36.5 79 20 161/85 (110) 91 Room Air 09/03/17 07:10 68 18 93 Room Air 09/03/17 04:00 Room Air 09/03/17 03:41 36.6 71 18 131/75 (93) 91 Room Air 09/03/17 00:00 Room Air 09/02/17 23:50 36.3 71 18 116/73 (87) 96 Room Air 09/02/17 20:50 36.7 83 18 155/86 (109) 93 Room Air 09/02/17 20:00 Room Air 09/02/17 19:42 71 20 93 Room Air Physical Exam General Appearance: WD/WN, no apparent distress, + obese Eyes: normal inspection, sclerae normal ENT: hearing grossly normal Neck: trachea midline Respiratory/Chest: lungs clear, normal breath sounds, no respiratory distress, no accessory muscle use Cardiovascular: regular rate, rhythm, no murmur, + pertinent finding (Chronic left lower extremity lymphedema unchanged from previous) Abdomen: normal bowel sounds, non tender, soft Extremities: no calf tenderness Neurologic/Psychiatric: no motor/sensory deficits, normal mood/affect, oriented x 3 Skin: normal color, warm/dry, no rash Laboratory Results Last 24 Hours Test 09/02/17 19:18 09/02/17 20:20 09/03/17 00:19 09/03/17 06:50 Troponin I < 0.015 ng/ml < 0.015 ng/ml < 0.015 ng/ml Bedside Glucose 215 mg/dl White Blood Count 5.23 K/uL Red Blood Count 4.05 M/uL Hemoglobin 11.4 g/dL Hematocrit 35.3 % Mean Corpuscular Volume 87.2 fL Mean Corpuscular Hemoglobin 28.1 pg Mean Corpuscular Hemoglobin Concent 32.3 g/dl Platelet Count 210 K/uL Mean Platelet Volume 9.5 fL Neutrophils (%) (Auto) 70.5 % Lymphocytes (%) (Auto) 13.4 % Monocytes (%) (Auto) 11.1 % Eosinophils (%) (Auto) 4.2 % Basophils (%) (Auto) 0.6 % Neutrophils # (Auto) 3.69 K/uL Lymphocytes # (Auto) 0.70 K/uL Monocytes # (Auto) 0.58 K/uL Eosinophils # (Auto) 0.22 K/uL Basophils # (Auto) 0.03 K/uL RDW Standard Deviation 52.3 fL RDW Coefficient of Variation 16.6 % Immature Granulocyte % (Auto) 0.2 % Immature Granulocyte # (Auto) 0.01 K/uL Sodium Level 138 mmol/L Potassium Level 3.5 mmol/L Chloride Level 102 mmol/L Carbon Dioxide Level 30 mmol/L Anion Gap 6.0 mmol/L Blood Urea Nitrogen 23 mg/dl Creatinine 1.04 mg/dl Est Creatinine Clear Calc Drug Dose 71.3 ml/min Estimated GFR () 76.6 Estimated GFR (Non- 66.1 BUN/Creatinine Ratio 22.2 Random Glucose 167 mg/dl Estimated Average Glucose 157 mg/dl Hemoglobin A1c 7.1 % Calcium Level 8.8 mg/dl Magnesium Level 1.6 mg/dl Total Bilirubin 0.6 mg/dl Aspartate Amino Transf (AST/SGOT) 24 U/L Alanine Aminotransferase (ALT/SGPT) 37 U/L Alkaline Phosphatase 78 U/L Total Protein 6.5 gm/dl Albumin 3.1 gm/dl Globulin 3.4 gm/dl Albumin/Globulin Ratio 0.9 Triglycerides Level 107 mg/dl Cholesterol Level 102 mg/dl HDL Cholesterol 40 mg/dl LDL Cholesterol, Calculated 41 mg/dl VLDL Cholesterol, Calculated 21 mg/dl Cholesterol/HDL Ratio 2.6 Test 09/03/17 07:43 09/03/17 11:34 09/03/17 12:48 09/03/17 16:36 Bedside Glucose 199 mg/dl 258 mg/dl 214 mg/dl Troponin I < 0.015 ng/ml Assessment and Plan Patient is an 82 y/o male with a history of HTN, HLD, chronic diastolic CHF, severe CAD s/p CABG, suspected COPD/previous smoker, probable PIPPA, anemia and recent GI diverticular bleed, DM II, prostate cancer s/p TURP and XRT, BPH, lymphedema of LEs, and GERD who presented with substernal chest pain that woke him from sleep. He was recently admitted and discharged to SNF several days ago after admission for acute diastolic CHF and acute hypercarbic and hypoxic respiratory failure. Chest pain/severe CAD S/P CABG/HL-seems atypical as is occurring at rest and after eating, but not with exertion. He does describe it as his typical substernal chest tightness and it was relieved with nitroglycerin. Troponins have been negative 6. ECGs with some limb lead reversal but no ischemic changes. His atenolol was stopped last admission for bradycardia in the 30s- 40s. -Appreciate cardiology consultation-will attempt medical management for angina as he was told previously at the [facility] that he had severe disease and no further intervention would be helpful if and no cardiac catheterization or stress test planned for this admission -Added amlodipine 2.5 mg daily -Restarted beta-pallavi in the form of metoprolol 12.5 mg p.o. 3 times daily and he is tolerating this well -Continue him door 180 mg daily, continue aspirin and Plavix, as well as statin Chronic diastolic heart failure/suspected pulmonary hypertension/right-sided heart failure/HTN-no evidence of fluid overload at this time Echo last admission: ECHO showed: * 1. LV mildly dilated, normal LV wall thickness. * 2. LVEF 50-55%. Abnormal septal motion. * 3. RV dilated. Borderline RV function. * 4. Grade II diastolic dysfunction. * 5. Moderate pulmonary hypertension. Est PASP 55-60 mmHg. Normal est CVP. * 6. Compared with prior study on 06/15/2017: RV dilation, pulmonary hypertension better appreciated. -Continue Bumex 1 mg daily -Continue losartan -Started metoprolol 12.5 mg p.o. 3 times daily as above -Started amlodipine 2.5 mg p.o. daily as above -Daily weights, strict I's & O's -Low sodium diet -Recommend outpatient sleep study given previous bradycardia with sleeping last admission CKD stage III-creatinine stable here -Renally dose medications Avoid nephrotoxins Follow PRP periodically Anemia--baseline Hgb 11 which is increased since last week, he had a recent GI bleed in Jun, only recently started on p.o. iron as an outpatient and this was increased to 3 times daily on discharge last time. Had upper and lower endoscopy last admission was suspected diverticular bleed and also had a bleeding gastric polyp that was clipped -Continue ferrous sulfate 325 mg p.o. 3 times daily -Follow CBC DM II- HgbA1c 7.1% here with hyperglycemia here -Holding glimepiride and metformin -Insulin sliding scale and will increase carb ratio -Check BSGs q ac and qhs -Add Lantus 8 units at bedtime Prostate cancer, BPH--s/p TURP, Casodex, radiation-no acute issues -Continue alfuzosin 10 mg PO qd, Avodart 0.5 mg PO qd Hypomagnesemia -Magnesium 1.6-replaced today Lymphedema-chronic, no change since last time -Compression stockings ordered DVT prophylaxis -heparin SQ -ENID willams Code Status -Level I, FULL RESUSCITATION STATUS Dispo-hopefully to SNF at [facility] tomorrow if authorization approved and if no further angina Continue on telemetry
[2017-09-03] MEDS: RANITIDINE HCL 150 MG TAB PO SCH (20:57)
[2017-09-03] MEDS: MICONAZOLE NITRATE 2% CR 30 GM TUBE EXT SCH ×2 (20:57→23:33)
[2017-09-03] MEDS: ISOSORBIDE MONONITRATE 60 MG TABCR PO SCH (20:58)
[2017-09-03] MEDS: PANTOprazole SOD 40 MG TAB PO SCH (20:59)
[2017-09-03] MEDS: ATORVASTATIN 40 MG TAB PO SCH (20:59)
[2017-09-03] MEDS ORDERED: INSULIN GLARGINE SOLOSTAR 100 UNITS/ML 3 ML PEN SC SCH (21:00)
[2017-09-04] VITALS (10 sets, daily range): BP systolic 99–152; BP diastolic 60–81; PULSE 57–84; TEMP 36.2–37; O2SAT 91–96
[2017-09-04] MEDS: OXYCODONE HCL IR 5 MG TAB (IMMEDIATE RELEASE) PO PRN ×4 (00:06→17:57)
[2017-09-04] MEDS: ALBUT/IPRATROP 3MG/0.5MG NEB 3 ML VIAL INH SCH ×3 (01:30→14:20)
[2017-09-04] MEDS: HEPARIN SOD 5000 UNIT/0.5 ML CARP SQ SCH ×2 (05:51→13:17)
[2017-09-04 05:55] LABS: BASO % 0.5 %; BASO ABS # 0.02 K/uL (0-0.2); EOS ABS # 0.22 K/uL (0-0.5); HEMATOCRIT 34.9 % (42-52); HEMOGLOBIN 10.8 g/dL (14.0-18.0); IG# 0.01 K/uL (0.00-0.02); LYMPH % 14.6 %; LYMPH ABS # 0.64 K/uL (1.2-3.4); MEAN CELL VOLUME 88.6 fL (80-100); MEAN CORPUSCULAR HEMOGLOBIN 27.4 pg (25-34); MEAN CORPUSCULAR HGB CONC 30.9 g/dl (32-36); MEAN PLATELET VOLUME 10.3 fL (7.4-10.4); MONO % 12.1 %; MONO ABS # 0.53 K/uL (0.11-0.59); NEUT % 67.6 %; NEUT ABS # 2.96 K/uL (1.4-6.5); PLATELET COUNT 206 K/uL (130-400); RED CELL DISTRIBUTION WIDTH CV 16.7 % (11.5-14.5); RED CELL DISTRIBUTION WIDTH SD 53.3 fL (36.4-46.3); WHITE BLOOD COUNT 4.38 K/uL (4.8-10.8)
[2017-09-04 06:39] LABS: CALCIUM 8.4 mg/dl (8.5-10.1); CREATININE 1.23 mg/dl (0.60-1.40); POTASSIUM 3.6 mmol/L (3.5-5.1)
[2017-09-04] MEDS: MICONAZOLE NITRATE 2% CR 30 GM TUBE EXT SCH ×2 (07:47→15:55)
[2017-09-04] MEDS: BUDESONIDE/FORMOTEROL FUMARATE 160/4.5 60 PUFFS/INHALER INH SCH (07:48)
[2017-09-04] MEDS: ALFUZosin TAB 10 MG TAB PO SCH (07:48)
[2017-09-04] MEDS: DICLOFENAC SOD 1% GEL 100 GM TUBE EXT SCH ×3 (07:48→17:31)
[2017-09-04] MEDS: AVODART~ORDER AWAITING ACTION SCH ×2 (07:48→15:55)
[2017-09-04] MEDS: ASPIRIN 81 MG ECTAB PO SCH (07:48)
[2017-09-04] MEDS: BUMETANIDE 1 MG TAB PO SCH (07:49)
[2017-09-04] MEDS: POTASSIUM CHLORIDE 20 MEQ TABCR PO SCH (07:49)
[2017-09-04] MEDS: AMLODIPINE BESYLATE 5 MG TAB PO SCH (07:49)
[2017-09-04] MEDS: LOSARTAN POTASSIUM 50 MG TAB PO SCH (07:52)
[2017-09-04] MEDS: CLOPIDOGREL BISULFATE 75 MG TAB PO SCH (07:53)
[2017-09-04] MEDS: FERROUS SULFATE 325 MG TAB PO SCH ×3 (07:53→17:31)
[2017-09-04] MEDS: MULTIVITAMIN TAB PO SCH (07:53)
[2017-09-04] MEDS: RANITIDINE HCL 150 MG TAB PO SCH (07:53)
[2017-09-04] MEDS: METOPROLOL TARTRATE 25 MG TAB PO SCH ×2 (07:53→13:11)
[2017-09-04] MEDS: MAGNESIUM OXIDE 400 MG TAB PO SCH (07:54)
[2017-09-04] MEDS: INSULIN ASPART 100 UNITS/ML 3 ML PEN SC SCH ×3 (08:14→17:30)
[2017-09-04] MEDS ORDERED: AMLODIPINE BESYLATE 5 MG TAB PO ONE (09:15)
[2017-09-04] MEDS ORDERED: MAGNESIUM SULFATE 1GM / D5W 1 GM in PREMIXED IN D5W 100 ML IV ONE (09:15)
--- NOTE | 2017-09-04 10:01 | CARDIOLOGY PROGRESS NOTE ---
DATE: 09/04/2017 HISTORY OF PRESENT ILLNESS: Mr. Hallman is a very pleasant 82-year-old white male with a history of Multivessel, Inoperable CAD s/p CABG x4 Vessels 1994 (JAMES to LAD, SVG to OM, SVG to RCA, and SVG to diagonal), Chronic Stable Angina Pectoris, Chronic Diastolic CHF, Hypertension, Dyslipidemia, Type 2 Diabetes Mellitus, Prostate Cancer and a history of Acute GI Bleeding 06/2017 (workup at that time revealed a bleeding gastric polyp which was clipped and colonoscopy revealed peyton blood, suspected to be diverticular in nature). He was subsequently discharged from the hospital in 06/2017 and had never regained his stamina, strength or endurance. The patient was readmitted on 08/23/2017 with an acute on chronic episode of diastolic CHF, he was markedly anemic at that time with hemoglobin of 8.1 g/dL and was having periods of hypoxemia. He was ultimately placed on BiPAP as his oxygen requirements increased and mental status declined. He did recover relatively quickly. The patient was discharged from [facility] on 08/29/2017 and transferred to [facility] for care home care and ongoing therapy. The patient was not receiving any supplemental oxygen at [facility], although he states that his oxygen levels have been within normal limits. The patient was readmitted to this facility on 09/02/2017 after an episode of Chest Pain which awakened him from sleep at approximately 0400. After 5 minutes, he took a nitroglycerin and the chest pain dissipated. It recurred about an hour later and was not responsive to sublingual nitroglycerin. He was subsequently transferred to the ER for further evaluation. The patient states that his heart rate and blood pressure were elevated when he had the chest discomfort but states that his oxygen saturation was okay. He had his atenolol discontinued during his last hospitalization due to the presence of inappropriate bradycardia and the presence of a bifascicular block on EKGs and telemetry. He may have had some component of beta pallavi withdrawal. Nonetheless, the patient is currently being seen in room 283, bed 1. He has not had any recurrent chest pain since yesterday. The patient described the discomfort as substernal and may have radiated to his neck. He had no associated nausea, vomiting, diaphoresis or dyspnea. The patient currently denies any chest pain, heaviness, tightness, pressure or angina pectoris. He denies any shortness of breath, dyspnea on exertion, orthopnea or PND. No syncope, near syncope, palpitations or tachypalpitations. The patient had Amlodipine 2.5 mg yesterday and he is now back on a beta pallavi (Lopressor 12.5 mg t.i.d.). His blood pressure has improved but is still not adequately controlled. MEDICATIONS: 1. Amlodipine 2.5 mg daily. 2. Zantac 150 mg b.i.d. 3. Lantus 8 units subcutaneous injection at bedtime. 4. Uroxatral 10 mg daily. 5. Aspirin 81 mg daily. 6. Bumex 1 mg daily. 7. Plavix 75 mg daily. 8. Cozaar 100 mg daily. 9. Mag-Ox 400 mg q.a.m. 10. Multivitamin daily. 11. Potassium chloride 20 mEq q.a.m. 12. Heparin 5000 units subcutaneous injection q. 8 hours. 13. Lipitor 40 mg at bedtime. 14. Symbicort 160/4.5 two puffs b.i.d. 15. Imdur 180 mg q. evening. 16. Protonix 40 mg daily. 17. Voltaren topical gel q.i.d. 18. Feosol 325 mg t.i.d. 19. NovoLog sliding scale insulin. 20. DuoNeb nebulizers q. 6 hours. 21. Lopressor 12.5 mg t.i.d. 22. Sublingual nitroglycerin as needed. 23. OxyIR 5 mg p.o. q. 6 hours p.r.n. for pain. 24. Tylenol p.r.n. 25. Maalox Max p.r.n. 26. Milk of magnesia p.r.n. 27. Ambien 5 mg at bedtime p.r.n. for sleep. 28. Zofran 4 mg IV q. 6 hours p.r.n. for nausea. 29. MiraLax 17 grams daily as needed for constipation. ALLERGIES: 1. AMOXICILLIN. 2. CELEBREX. 3. DICLOFENAC. 4. NAPROXEN. 5. ADHESIVES. 6. BEE VENOM. PHYSICAL EXAMINATION: VITAL SIGNS: Temperature is 36.4 degrees Celsius, pulse is 78 and regular with occasional ectopy, respiratory rate is 16 and unlabored, blood pressure is 152/81, SpO2 is 91% on room air. GENERAL: The patient is in no acute distress. HEENT: Head is atraumatic, normocephalic. EOMs intact. Sclerae anicteric. Facies symmetric. No perioral cyanosis. Mucous membranes moist. NECK: Without JVD. Carotid upstrokes +2 bilaterally without bruits. CHEST AND LUNGS: Clear to auscultation throughout all lung duque. No wheezes, rales or rhonchi. CARDIOVASCULAR: S1 and S2 are regular, distant, without obvious murmur, gallop or rub. PMI is nondisplaced. No lifts, heaves or thrills. No abdominal aortic or renal bruits. ABDOMEN: Bowel sounds present. No masses, organomegaly or tenderness. EXTREMITIES: Mostly nonpitting edema of the legs bilaterally. Calves are soft, nontender. Intact posterior tibial and radial pulses bilaterally. NEUROLOGIC: The patient is awake, alert and oriented. Pleasant and cooperative. Answers questions appropriately. Speech is clear. Normal movement in all 4 extremities. Gait pattern is not assessed. LABORATORY DATA: White blood cell count is 4.38, hemoglobin 10.8 g/dL, hematocrit 34.9%, platelet count 206,000. Sodium is 137 mmol/L, potassium 3.6 mmol/L, BUN 27 mg/dL, creatinine 1.23 mg/dL, random glucose is 195 mg/dL, serum magnesium level is 1.7 mg/dL. Troponin I's have been negative x6. Total CK on admission 72 units/liter with a CK-MB of 1.3 ng/mL. Chest x-ray on admission shows mild cardiomegaly without evidence of pulmonary edema, with probable atelectasis in the left base. EKGs thus far have shown normal sinus rhythm with right bundle-branch block and left anterior fascicular block. QRS duration is 156 milliseconds. ASSESSMENT: 1. Chest Pain in a patient with multivessel, inoperable coronary artery disease, status post coronary artery bypass graft x 4 vessels 1994 but negative cardiac enzymes. 2. History of chronic angina pectoris -- usually nocturnal. 3. Recent hospitalization for acute on chronic diastolic congestive heart failure. 4. Bifascicular block. 5. Hypertension. 6. Dyslipidemia. 7. Type 2 diabetes mellitus. 8. Prostate cancer. 9. History of gastrointestinal bleeding 06/2017 with resultant anemia. Hemoglobin currently stable. 10. 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 PLAN: 1. Despite the patient's chest pain on 3 or 4 different occasions in the past 48 hours, he has negative/immeasurable troponin I level -- which would suggest that this is not anginal chest pain. Nonetheless, he has multivessel inoperable CAD -- and agree with treating him as such. 2. Recommend titrating Amlodipine to 5 mg daily in order to better control his blood pressure and for its antianginal properties. 3. Continue beta pallavi upon discharge. Would recommend converting him to Toprol-XL 50 mg daily at the time of discharge. 4. Continue dual antiplatelet therapy long-term. 5. Continue high intensity statin therapy. 6. Continue Cozaar 100 mg daily. 7. Continue Imdur 180 mg each evening. 8. Would recommend using supplemental oxygen for low oxygen saturations when he returns to [facility]. 9. There is no need for further cardiac workup at this time and the patient is stable for transfer back to [facility] for ongoing rehabilitation services and care home services. 10. We will plan on seeing him back in the office within 1 week and will likely titrate his antianginal regimen when we see him again. Thank you for allowing us to participate in this patient's care. HARINI
[2017-09-04] MEDS ORDERED: NRV5 PO ×2 (16:04→16:47)
[2017-09-04] MEDS ORDERED: TPRSR25 PO ×2 (16:04→16:47)
[2017-09-04] MEDS ORDERED: ZNT150 PO (16:04)
--- NOTE | 2017-09-04 16:13 | Discharge Instructions ---
Discharge Instructions Date of Service Sep 04, 2017. Admission Reason for Admission: Chest Pain Discharge Discharge Diagnosis / Problem: Chest pain, angina Discharge Goals Goal(s): Decrease discomfort, Diagnostic testing, Therapeutic intervention Activity Recommendations Activity Level: Assistance Required Therapies: Physical Therapy, Occupational Therapy . Additional Information Patient informed of condition: Yes Advance Directives: Yes DNR: No Level of Care: Skilled Communicable Disease: No Prognosis: Stable Oxygen at (LPM): 2LNC qhs for suspected PIPPA Funk Catheter: No Instructions / Follow-Up Instructions / Follow-Up The patient was admitted to the hospital presenting with chest pain. He does have a known history of angina. Patient's cardiac enzymes have remained negative during stay and chest pain has resolved. He has known coronary artery disease but is not a good surgical candidate. No further testing was recommended by cardiology, who followed patient during stay. Some adjustments were made to the patient's medication to optimize anti-anginal therapy. He remains pain free and is stable to return to [facility] for rehab. Medications: *Started on metoprolol succinate 25 mg PO daily. Hold if systolic BP less than 100 or HR less than 60. *Started on amlodipine 2.5 mg PO daily. *Started on Zantac 150 mg PO BID in case chest pain was related to GERD. *Continue other home medications as prescribed. Follow up: *Follow up with primary doctor within 1 week of discharge. *Follow up with [facility] [place] [address] Metzger while inpatient. Please seek medical attention if patient experiences fevers, chills, sweats, dizziness/lightheadedness, loss of consciousness, chest pain, shortness of breath, nausea, vomiting, numbness or tingling. Current Hospital Diet Patient's current hospital diet: Low Sodium Diet (2gm Na), AHA Diet (Heart Healthy) Discharge Diet Recommended Diet: AHA Diet (Heart Healthy), Low Sodium Diet (2gm Na), Diabetes Type 2 Diet Fluid Restriction: 1800 ml (7 cups) Procedures Procedures Performed: Chest xray Pending Studies Studies pending at discharge: no Physician Orders On Transfer Vital Signs: Routine Weigh: Daily Laboratory Results Hemoglobin A1c Test 09/03/17 06:50 Range/Units Estimated Average Glucose 157 mg/dl Hemoglobin A1c 7.1 H 4.5-5.6 % Lipid Panel Test 09/03/17 06:50 Range/Units Triglycerides Level 107 0-150 mg/dl Cholesterol Level 102 0-200 mg/dl HDL Cholesterol 40 mg/dl Cholesterol/HDL Ratio 2.6 LDL Cholesterol, Calculated 41 mg/dl Medical Emergencies . Who to Call and When: Medical Emergencies: If at any time you feel your situation is an emergency, please call 911 immediately. . Non-Emergent Contact Non-Emergency issues call your: Primary Care Provider, Day Trader Call Non-Emergent contact if: you have a fever, your pain is not controlled, your pain is worsening, your pain is unusual for you, your pain is concerning you, you have any medication questions . Past History Medical & Surgical History: (1) Chest pain . "Provider Documentation" section prepared by Cari Baires. . Core Measure Problem Core Measures: None [place] Drug Monitoring Program Search Results: patient reviewed within database, no issues identified
--- NOTE | 2017-09-04 16:33 | Discharge Summary ---
Discharge Summary Date of Service Sep 04, 2017. Discharge Summary Admission Date: Sep 02, 2017 at 13:04 Discharge Date: Sep 04, 2017 Discharge Disposition: intermediate facility ([facility]) Principal Diagnosis: Chest pain Problems/Secondary Diagnoses: HTN HLD chronic diastolic CHF CAD anemia-iron deficiency DM II with hyperglycemia h/o prostate cancer BPH GERD COPD Suspected PIPPA Recent GI bleed-diverticular suspected,also bleeding gastric polyp Lymphedema of lower extremities Chronic opioid dependence Left hip trochanteric bursitis Moderate pulmonary hypertension. CKD stage III Hypomagnesemia Immunizations: Have You Had Influenza Vaccine: No History of Tetanus Vaccine?: Unknown History of Pneumococcal: Yes Pneumococcal Date: Apr 26, 2004 History of Hepatitis B Vaccine: No Procedures: Chest x-ray Consultations: Cardiology Medication Reconciliation New Medications: Acetaminophen (Mapap) 325 Mg Tab 650 MG PO Q4H PRN for Pain or Fever for 30 Days Amlodipine Besylate (Amlodipine Besylate) 5 Mg Tab 2.5 MG PO QAM for 30 Days, #15 TAB HOLD FOR SBP<100 Metoprolol Succinate (Metoprolol Succinate ER) 25 Mg Tabcr 25 MG PO QAM for 30 Days, #30 TAB HOLD FOR HR<60 or SBP<100 Miconazole Nitrate (Topical) (Tineacide) 2 % Cre 1 APPLN EXT QS for 30 Days to groin Ranitidine HCl (Ranitidine HCl) 150 Mg Tab 150 MG PO BID for 30 Days, #60 TAB Continued Medications: Alfuzosin Hcl (Uroxatral) 10 Mg Tab 10 MG PO QAM, TAB Aspirin (Aspirin Ec) 81 Mg Tab 81 MG PO DAILY Atorvastatin (Lipitor) 40 Mg Tab 40 MG PO HS Budesonide/Formoterol Fumarate (Symbicort 160-4.5 Mcg/Act) 60 Puffs/Inhaler Aero 2 PUFFS INH BID, #1 INHALER 2 Refills Bumetanide (Bumex) 1 Mg Tab 1 MG PO QAM, #30 TAB 3 Refills Calcium Carbonate-Vitamin D (Calcium) 1 Tab Tab 2 TAB PO DAILY Clopidogrel (Plavix) 75 Mg Tab 75 MG PO DAILY, TAB Diclofenac Sod (Voltaren) 100 Appln/100 Gm Gel 1 APPLN EXT QID, #1 TUBE 2 Refills apply 4 grams to either shoulder, either hip, either knee q6h prn pain Dutasteride (Avodart) 0.5 Mg Cap 0.5 MG PO QAM, CAP Esomeprazole Magnesium (Nexium) 40 Mg Capcr 40 MG PO QPM Ferrous Sulfate (Ferrous Sulfate) 325 Mg Tab 325 MG PO TID, #90 TAB 1 Refill Glimepiride (Glimepiride) 2 Mg Tab 2 MG PO BID Home O2 Therapy (Oxygen) Gas 2 LITERS NA HS, #1 Ipratropium-Albuterol (Duoneb) 3 Ml Nebu 3 ML INH Q6H, #1 BOX 2 Refills Isosorbide Mononitrate Ext Rel (Imdur Ext Rel) 120 Mg Ertab 180 MG PO QPM Losartan Potassium (Cozaar) 100 Mg Tab 100 MG PO QAM Magnesium Oxide (Magnesium-Oxide) 400 Mg Tab 400 MG PO QAM, #30 TABS 5 Refills Metformin Hcl (Glucophage) 1,000 Mg Tab 1000 MG PO BID, TAB TAKE THIS MEDICATION WITH MORNING AND EVENING MEALS Multivitamin (Multivitamin) Tab 1 TAB PO QAM Niacin (Niacin) 500 Mg Tab 2000 MG PO QPM Nitroglycerin (Nitrostat) 0.4 Mg Sub 0.4 MG UT UD PRN for Chest Pain, #30 TAB Oxycodone Ir (Roxicodone Ir) 5 Mg Tab 5 MG PO Q6H PRN for Pain for 3 Days, #12 TAB 0 Refills (This prescription has been renewed) Potassium Chloride (Potassium Chloride Er) 10 Meq Tab 20 MEQ PO QAM Discontinued Medications: Metformin Hcl (Glucophage) 1,000 Mg Tab 500 MG PO WITH LUNCH, TAB TAKE HALF A TABLET (500 MG) DAILY WITH LUNCH Discharge Exam The patient reports feeling well. He denies any chest pain today or yesterday. He denies any shortness of breath or acute complaints. He states the swelling in his legs has been ongoing for the last 2 weeks. He typically wears lymphedema wraps but has not worn them for 2 weeks. Constitutional: No fever, No chills, No sweats Eyes: No worsening of vision, No eye pain, No diplopia ENT: No hearing loss, No nasal symptoms, No trouble swallowing Respiratory: No cough, No wheezing, No shortness of breath Cardiovascular: No chest pain, No claudication, No palpitations Abdomen: No pain, No nausea, No vomiting Musculoskeletal: No joint pain, No muscle pain, No swelling Genitourinary - Male: No dysuria, No urinary retention, No hematuria Neurologic: No paralysis, No weakness, No numbness/tingling Integumentary: No rash, No itch, No color change General appearance: +Morbidly obese. Well-developed, well-nourished, no apparent distress Head: Normocephalic, atraumatic Eyes: Normal inspection, PERRL, EOMI ENT: Normal ENT inspection, hearing grossly normal, pharynx normal Neck: Supple, no JVD, trachea midline Respiratory/Chest: Lungs clear to auscultation, normal breath sounds, no respiratory distress Cardiovascular: Regular rate & rhythm, no gallop, no murmur Abdomen/GI: Normal bowel sounds, non-tender, soft Extremities/Musculoskeletal: +2-3+ pitting edema. Normal inspection, no calf tenderness Neurological/Psych: Alert, normal mood/affect, oriented x 3 Skin: Normal color, warm/dry, no rash Hospital Course 82 y/o male with a history of HTN, HLD, chronic diastolic CHF, CAD, angina, anemia, DM II, prostate cancer, BPH, lymphedema, and GERD who presented from [facility] with chest pain that resolved with nitro. Chest pain--resolved -Admit to telemetry for observation. No acute events overnight. Pt in sinus rhythm/sinus arrhythmia with HR 50s-60s -Troponin remained negative throughout stay, actually negative x 6 -Lipid panel WNL -HgbA1c 7.1 this admission -Cardiology consulted, appreciate recs: Recommend addition of amlodipine to help manage angina as well as BP. Added Lopressor and changed to Toprol XL at discharge. Continue other home meds. He had no bradycardia this admission. No further cardiac work up at this time. F/u in 1 week. HTN, HLD, CAD, angina, h/o VA--stable -Continue ASA, Plavix, Lipitor 40 mg PO hs, Imdur 180 mg PO qd, losartan 100 mg PO qd -Pt started back on beta pallavi this admission, convert to Toprol XL 25 mg PO qd at discharge -Amlodipine 2.5 mg PO qd -Cardiology recommended increasing amlodipine to 5 mg and Toprol to 50 mg, however pt developed hypotension. Will continue amlodipine 2.5 mg and Toprol XL 25 mg for now w/hold parameters Chronic diastolic heart failure--stable, no acute exacerbation -Weight stable, slightly negative fluid balance -Bumex 1 mg IV qd. Reportedly only takes Bumex at home 2x/week -Low sodium diet -Continue Bumex 1 mg PO qd, beta pallavi, ARB, Imdur as above Hypomagnesemia -Magnesium 1.7 on 09/04, given mag sulfate 1 gm IV Anemia--stable -Baseline Hgb 8-9 since GI bleed in Jun -Hgb around 11 this admission DM II--HgbA1c 7.1 09/03/17 -Hold glimepiride and metformin, resume at discharge -Lantus 8 units SC hs -Insulin sliding scale -Check BSGs q ac and qhs Prostate cancer, BPH--s/p TURP, Casodex, radiation -Continue alfuzosin 10 mg PO qd, Avodart 0.5 mg PO qd DVT prophylaxis -Heparin 5000 units SC q8h Code Status -Level I, FULL RESUSCITATION STATUS Total Time Spent: Greater than 30 minutes This includes examination of the patient, discharge planning, medication reconciliation, and communication with other providers. Discharge Instructions Please refer to the electronic Patient Visit Report (Discharge Instructions) for additional information. Follow-Up With cardiology in 1 week With PCP within 1-2 weeks after discharge from [facility] Additional Copies To Robinson Azar; Kori Parmar D.O. 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 Discussed with LORRIE Baires and agree with findings and plan as documented in the note. Any exceptions or clarifications are listed here: Patient feeling very well today. He has not had any further chest pain in the last 36 hours. He truly believes that he had angina and does not believe that this could be GERD related. Nonetheless, he feels well and is ready for discharge. Gen: AAOx3, NAD HEENT: anicteric sclerae, EOMI CV: RRR no mgr nl S1S2 Pulm: CTAB no wcr Abd: +BS soft NT ND no masses or hernias Ext: Chronic 2+ lymphedema in the left lower extremity and 1+ in the right lower extremity, 2+ DP pulses Skin: no rashes, warm/dry Patient is an 82 y/o male with a history of HTN, HLD, chronic diastolic CHF, severe CAD s/p CABG, suspected COPD/previous smoker, probable PIPPA, anemia and recent GI diverticular bleed, DM II, prostate cancer s/p TURP and XRT, BPH, lymphedema of LEs, and GERD who presented with substernal chest pain that woke him from sleep. He was recently admitted and discharged to SNF several days prior after admission for acute diastolic CHF and acute hypercarbic and hypoxic respiratory failure. Chest pain/severe CAD S/P CABG/HL-seems atypical as is occurring at rest and after eating, but not with exertion. He does describe it as his typical substernal chest tightness and it was relieved with nitroglycerin. Troponins have been negative 6. ECGs with some limb lead reversal but no ischemic changes. His atenolol was stopped last admission for bradycardia in the 30s- 40s. -Appreciate cardiology consultation-will attempt medical management for angina as he was told previously at the [facility] that he had severe disease and no further intervention would be helpful if and no cardiac catheterization or stress test planned for this admission -Added amlodipine 2.5 mg daily -Restarted beta-pallavi in the form of metoprolol 12.5 mg p.o. 3 times daily and had some hypotension-will change to Toprol-XL 25 mg once daily on discharge -Continue Imdur 180 mg daily, continue aspirin and Plavix, as well as statin Chronic diastolic heart failure/suspected pulmonary hypertension/right-sided heart failure/HTN-no evidence of fluid overload at this time Echo last admission: ECHO showed: * 1. LV mildly dilated, normal LV wall thickness. * 2. LVEF 50-55%. Abnormal septal motion. * 3. RV dilated. Borderline RV function. * 4. Grade II diastolic dysfunction. * 5. Moderate pulmonary hypertension. Est PASP 55-60 mmHg. Normal est CVP. * 6. Compared with prior study on 06/15/2017: RV dilation, pulmonary hypertension better appreciated. -Continue Bumex 1 mg daily -Continue losartan -Started metoprolol as above -Started amlodipine 2.5 mg p.o. daily as above -Daily weights, strict I's & O's -Low sodium diet -Recommend outpatient sleep study given previous bradycardia with sleeping last admission CKD stage III-creatinine stable here -Renally dose medications Avoid nephrotoxins Follow BMP periodically Anemia--baseline Hgb 11 which is increased since last week, he had a recent GI bleed in Jun, only recently started on p.o. iron as an outpatient and this was increased to 3 times daily on discharge last time. Had upper and lower endoscopy last admission was suspected diverticular bleed and also had a bleeding gastric polyp that was clipped -Continue ferrous sulfate 325 mg p.o. 3 times daily -Follow CBC DM II- HgbA1c 7.1% here with hyperglycemia here which improved with adding basal and bolus insulin -Restart home glimepiride and metformin on discharge but metformin should only be 1000 mg twice daily-he had an extra 500 mg dose in the midday but this is above the maximum recommended amount Prostate cancer, BPH--s/p TURP, Casodex, radiation-no acute issues -Continue alfuzosin 10 mg PO qd, Avodart 0.5 mg PO qd Hypomagnesemia -Magnesium replaced Lymphedema-chronic, no change since last time -Compression stockings should be worn often Chronic opioid dependence/chronic left shoulder pain and chronic left trochanteric bursitis-all stable -OxyContin was discontinued on previous admission -Continue oxycodone and Tylenol as needed Stable for discharge to [facility] today Documented By: Patrizia Young Assessment/Plan Patient is an 82 y/o male with a history of HTN, HLD, chronic diastolic CHF, severe CAD s/p CABG, suspected COPD/previous smoker, probable PIPPA, anemia and recent GI diverticular bleed, DM II, prostate cancer s/p TURP and XRT, BPH, lymphedema of LEs, and GERD who presented with substernal chest pain that woke him from sleep. He was recently admitted and discharged to SNF several days ago after admission for acute diastolic CHF and acute hypercarbic and hypoxic respiratory failure. Chest pain/severe CAD S/P CABG/HL-seems atypical as is occurring at rest and after eating, but not with exertion. He does describe it as his typical substernal chest tightness and it was relieved with nitroglycerin. Troponins have been negative 6. ECGs with some limb lead reversal but no ischemic changes. His atenolol was stopped last admission for bradycardia in the 30s- 40s. -Appreciate cardiology consultation-will attempt medical management for angina as he was told previously at the [facility] that he had severe disease and no further intervention would be helpful if and no cardiac catheterization or stress test planned for this admission -Added amlodipine 2.5 mg daily -Restarted beta-pallavi in the form of metoprolol 12.5 mg p.o. 3 times daily and he is tolerating this well -Continue him door 180 mg daily, continue aspirin and Plavix, as well as statin Chronic diastolic heart failure/suspected pulmonary hypertension/right-sided heart failure/HTN-no evidence of fluid overload at this time Echo last admission: ECHO showed: * 1. LV mildly dilated, normal LV wall thickness. * 2. LVEF 50-55%. Abnormal septal motion. * 3. RV dilated. Borderline RV function. * 4. Grade II diastolic dysfunction. * 5. Moderate pulmonary hypertension. Est PASP 55-60 mmHg. Normal est CVP. * 6. Compared with prior study on 06/15/2017: RV dilation, pulmonary hypertension better appreciated. -Continue Bumex 1 mg daily -Continue losartan -Started metoprolol 12.5 mg p.o. 3 times daily as above -Started amlodipine 2.5 mg p.o. daily as above -Daily weights, strict I's & O's -Low sodium diet -Recommend outpatient sleep study given previous bradycardia with sleeping last admission CKD stage III-creatinine stable here -Renally dose medications Avoid nephrotoxins Follow PRP periodically Anemia--baseline Hgb 11 which is increased since last week, he had a recent GI bleed in Jun, only recently started on p.o. iron as an outpatient and this was increased to 3 times daily on discharge last time. Had upper and lower endoscopy last admission was suspected diverticular bleed and also had a bleeding gastric polyp that was clipped -Continue ferrous sulfate 325 mg p.o. 3 times daily -Follow CBC DM II- HgbA1c 7.1% here with hyperglycemia here -Holding glimepiride and metformin -Insulin sliding scale and will increase carb ratio -Check BSGs q ac and qhs -Add Lantus 8 units at bedtime Prostate cancer, BPH--s/p TURP, Casodex, radiation-no acute issues -Continue alfuzosin 10 mg PO qd, Avodart 0.5 mg PO qd Hypomagnesemia -Magnesium 1.6-replaced today Lymphedema-chronic, no change since last time -Compression stockings ordered DVT prophylaxis -heparin SQ -ENID hose Code Status -Level I, FULL RESUSCITATION STATUS Dispo-hopefully to SNF at [facility] tomorrow if authorization approved and if no further angina Continue on telemetry
[2017-09-04] MEDS ORDERED: OXYC1TAB3 PO (16:37)
[2017-09-04] MEDS ORDERED: CLOTCRE EXT (16:37)
[2017-09-04] MEDS ORDERED: ACET-1047 PO (16:37)
[2017-09-04] MEDS ORDERED: METOPROLOL TARTRATE 25 MG TAB PO SCH (21:00)
[2017-09-05] MEDS ORDERED: AMLODIPINE BESYLATE 5 MG TAB PO SCH ×2 (09:00)
[2017-09-05] MEDS ORDERED: METOPROLOL SUCC 25MG EXT REL TAB PO SCH (09:00)
== END 2017-09-04 18:16 ==
LOC: EDBD 07:09 → C.EDB 07:11 → C.MED 13:04 → ENRESERV 13:38
PROVIDERS: ADMIT Internal Medicine; ATTEND Family Medicine
DX: R07.89 Other chest pain (principal); I13.0 Hypertensive heart and chronic kidney disease with heart failure and stage 1 through stage 4 chronic kidney disease, or unspecified chronic kidney disease; I11.0 Hypertensive heart disease with heart failure; I50.32 Chronic diastolic (congestive) heart failure; I89.0 Lymphedema, not elsewhere classified; E83.42 Hypomagnesemia; D50.9 Iron deficiency anemia, unspecified; I27.20 Pulmonary hypertension, unspecified; F11.20 Opioid dependence, uncomplicated; N40.1 Benign prostatic hyperplasia with lower urinary tract symptoms; E11.9 Type 2 diabetes mellitus without complications; N18.3 Chronic kidney disease, stage 3 (moderate); I25.10 Atherosclerotic heart disease of native coronary artery without angina pectoris; E78.5 Hyperlipidemia, unspecified; E66.01 Morbid (severe) obesity due to excess calories; M19.90 Unspecified osteoarthritis, unspecified site; K21.9 Gastro-esophageal reflux disease without esophagitis; Z87.891 Personal history of nicotine dependence; Z79.82 Long term (current) use of aspirin; Z79.02 Long term (current) use of antithrombotics/antiplatelets; Z79.899 Other long term (current) drug therapy; Z95.1 Presence of aortocoronary bypass graft; I25.2 Old myocardial infarction; Z79.84 Long term (current) use of oral hypoglycemic drugs; Z88.1 Allergy status to other antibiotic agents; Z88.8 Allergy status to other drugs, medicaments and biological substances; Z85.46 Personal history of malignant neoplasm of prostate

== ENCOUNTER → 2017-10-18 | Outpatient (CLI) | payer OTHER ==
[~2017-10-18] MED LIST changes: +ACET-1047 PO; +CLOTCRE EXT; -METF-384 PO; +NRV5 PO; +TPRSR25 PO; +ZNT150 PO
--- NOTE | 2017-10-18 14:28 | DIAGNOSTIC IMAGING REPORT ---
L SHOULDER MIN 2 VIEWS HISTORY: 82 years-old Male LEFT SHOULDER PAIN acute left shoulder pain COMPARISON: Chest radiograph 09/02/2017 TECHNIQUE: 3 views of the left shoulder FINDINGS: Severe joint space narrowing with marginal spurring, subchondral cystic changes and subchondral sclerosis involves the glenohumeral joint. Chronic remodeling changes are also noted. Mild degenerative changes of the AC joint. Possible loose body of the subscapularis recess, 8 mm. No acute fracture or dislocation. Prior median sternotomy with cardiomegaly. IMPRESSION: 1. No acute fracture or dislocation. 2. Severe degenerative changes about the left glenohumeral joint. The above report was generated using voice recognition software. It may contain grammatical, syntax or spelling errors. Electronically signed by: Marc Mercedes M.D. 10/18/2017 2:27 PM Dictated Date/Time: 10/18/2017 2:26 PM
== END | disposition home or self-care (01) ==
LOC: C.RDSM 14:08
PROVIDERS: ATTEND Physician Assistant
DX: M25.512 Pain in left shoulder (principal); M19.012 Primary osteoarthritis, left shoulder

== ENCOUNTER 2017-11-22 13:53 | Emergency (ER) | payer OTHER ==
[~2017-11-22] VITALS: Ht 175.3 cm; Wt 125.4 kg
[~2017-11-22 13:53] MED LIST changes: -ALFU10TA2 PO; +AMLO-114 PO; -CLOTCRE EXT; +GLC/500 PO; -IPRASOL4 INH; +METF-384 PO; +METO50TA8 PO; -NRV5 PO; +RANO1000 PO; -SYMIN INH; -TPRSR25 PO; -VLTG EXT; -ZNT150 PO
[2017-11-22 14:00] VITALS: TEMP 37; Ht 175.3 cm; Wt 125.4 kg
--- NOTE | 2017-11-22 14:03 | EMERGENCY ROOM VISIT NOTE ---
History Report prepared by Rosalinda: Geovany Abdi Under the Supervision of: Dr. Rob Goncalves M.D. First contact with patient: 13:53 Chief Complaint: FALL Stated Complaint: FALL History of Present Illness The patient is a 82 year old male who presents to the Emergency Room with complaints of constant left shoulder pain that began [employer]IME [employer] OPER[employer].The patient states he went to go to the bathroom to urinate prior to arrival. He reports he was using his walker to walk to the bathroom when he slipped and hit his left shoulder on the door. He reports that he has been experiencing left shoulder discomfort since. Per EMS, the patient has an abrasion that is swollen and raised. His blood pressure was in the 130s systolically. The patient denies any head pain, hitting his head, neck pain, back pain, and LOC. He reports he takes Plavix. 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 A total of ten systems were reviewed and were otherwise negative. 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 (16) Left ventricular diastolic dysfunction (17) Lower GI bleed (18) Myocardial infarction (19) Obesity (20) Osteoarthritis (21) Prostate cancer (22) REFLUX ESOPHAGITIS (23) Urinary tract infection Family History Diabetes mellitus FH: prostate cancer FHx: colon cancer Hypertension Social History Smoking Status: Former Smoker Drug Use: none Marital Status: Housing Status: lives with family Occupation Status: retired Current/Historical Medications Scheduled Amlodipine (Norvasc), 10 MG PO DAILY Atorvastatin (Lipitor), 40 MG PO HS Calcium Carbonate-Vitamin D (Calcium), 2 TAB PO DAILY Clopidogrel (Plavix), 75 MG PO DAILY Dutasteride (Avodart), 0.5 MG PO QAM Esomeprazole Magnesium (Nexium), 40 MG PO QPM Ferrous Sulfate (Ferrous Sulfate), 325 MG PO TID Glimepiride (Glimepiride), 2 MG PO BID Glucosamine Sulfate (Glucosamine), 1,000 MG PO DAILY Home O2 Therapy (Oxygen), 2 LITERS NA HS Isosorbide Mononitrate Ext Rel (Imdur Ext Rel), 120 MG PO QPM Losartan Potassium (Cozaar), 100 MG PO QAM Metformin Hcl (Glucophage), 1,000 MG PO BID Metformin Hcl (Glucophage), 500 MG PO DAILY Metoprolol Succ (Toprol Xl) (Toprol-Xl), 50 MG PO DAILY Multivitamin (Multivitamin), 1 TAB PO QAM Niacin (Niacin), 1,000 MG PO QPM Potassium Chloride (Potassium Chloride Er), 20 MEQ PO QAM Ranolazine (Ranexa), 1,000 MG PO BID Scheduled PRN Acetaminophen (Mapap), 650 MG PO Q4H PRN for Pain or Fever Nitroglycerin (Nitrostat), 0.4 MG UT UD PRN for Chest Pain Oxycodone Ir (Roxicodone Ir), 5 MG PO Q6H PRN for Pain Allergies Coded Allergies: Adhesives (Verified Allergy, Unknown, DRLINSEY TORE PT'S SKIN OFF, 11/22/17) Bee Venom (Verified Allergy, Unknown, SWELLING, 11/22/17) Naproxen (Verified Allergy, Unknown, 11/22/17) Amoxicillin (Verified Adverse Reaction, Unknown, CAUSES DIARRHEA, 11/22/17) Celecoxib (Verified Adverse Reaction, Unknown, gi bleed, 11/22/17) Diclofenac (Verified Adverse Reaction, Unknown, PT STATES GI UPSET PER DR GREEN, 11/22/17) Physical Exam Vital Signs Date Time Temp Pulse Resp B/P (MAP) Pulse Ox O2 Delivery O2 Flow Rate FiO2 11/22/17 16:04 63 20 143/75 93 Room Air 11/22/17 14:30 62 20 112/61 96 Room Air 11/22/17 14:00 37.0 77 20 141/87 94 Room Air Physical Exam Physical Exam GENERAL: He is oriented to person, place, and time. He appears well-developed and well-nourished. He does not appear distressed. ____ HENT: Exam performed. Head: Normocephalic and atraumatic. Right Ear: External ear normal. No mastoid tenderness. Left Ear: External ear normal. No mastoid tenderness. Mouth/Throat: The oropharynx is clear and moist. No trismus in the jaw. No dental abscesses or uvula swelling. No oropharyngeal exudate or tonsillar abscesses. ____ EYES: Conjunctivae and EOM are normal. Pupils are equal, round, and reactive to light. Right eye exhibits no discharge. Left eye exhibits no discharge. No scleral icterus. ____ NECK: Normal range of motion. Neck supple. No JVD present. No spinous process tenderness present. No carotid bruit present. No rigidity. No tracheal deviation and normal range of motion present. No Brudzinski's sign and no Kernig 's sign noted. ____ CV: Normal rate, regular rhythm, normal heart sounds and intact distal pulses. There is no peripheral edema. Palpable radial pulses bue. ____ PULM/CHEST: Effort normal and breath sounds normal. No respiratory distress. No stridor. He has no wheezes. He has no rales. Chest Wall: He exhibits no tenderness. ____ ABD: The abdomen is soft. Bowel sounds are normal. He has no distension. No mass is present. There is no tenderness. There is no rebound, no guarding, no Hanna's sign and no tenderness at McBurney's point. Rovsig negative MUSC/SKEL: There is no peripheral edema or deformity. No pain on palpation of C- spine, T-spine or L-spine.. Large hematoma over left scapula area. No pain on palpation of left or right clavicle. No pain on palpation of the bilateral ribs , no crepitus. Left upper extremity: Full range of passive motion of left shoulder. Pain with active range of motion of left shoulder. Full range of motion of left elbow.____ ____ LYMPH: No cervical adenopathy. ____ NEURO: He is alert and oriented to person, place, and time. He has normal strength. No cranial nerve deficit or sensory deficit. Coordination and gait normal. GCS eye subscore is 4. GCS verbal subscore is 5. GCS motor subscore is 6. Cerebellar tests wnl. ____ SKIN: Skin is warm and dry. He is not diaphoretic. ____ PSYCH: He has a normal mood and affect. His behavior is normal. Judgment and thought content normal. ____ Medical Decision & Procedures ER Provider Diagnostic Interpretation: Radiology results as stated below per my review and radiologist interpretation: LEFT SHOULDER 3 VIEWS HISTORY: Left shoulder pain. fall COMPARISON: Left shoulder 10/18/2017. FINDINGS: There is again noted severe osteoarthritis at the glenohumeral joint with large marginal osteophytes and [id number]-jq-[id number] articulation. No fracture or dislocation within the left shoulder. The left clavicle is intact. Soft tissues are unremarkable. No radiopaque foreign bodies. IMPRESSION: Severe osteoarthritis at the glenohumeral joint. No fracture or dislocation within the left shoulder. Electronically signed by: Ventura Magallon M.D. 11/22/2017 2:58 PM Dictated Date/Time: 11/22/2017 2:57 PM THORACIC SPINE 3 VIEWS ROUTINE CLINICAL HISTORY: 82 years-old Male presenting with fall. TECHNIQUE: 3 views of the thoracic spine were obtained. COMPARISON: None. FINDINGS: Median sternotomy wires and mediastinal surgical clips evident. Epicardial pacing wires noted. Atherosclerosis of aortic arch. Normal thoracic kyphosis. The upper thoracic spine is partially obscured due to overlapping osseous structures. Vertebral bodies maintain normal height and alignment. Significant multilevel degenerative changes though intervertebral disc heights are preserved. No radiographic evidence of a compression deformity. No gross evidence of osseous neural foraminal narrowing. Minimal dextrocurvature of the thoracic spine. IMPRESSION: 1. Multilevel degenerative changes of the thoracic spine. 2. No radiographic evidence of a compression deformity. Electronically signed by: Randy Wilkinson M.D. 11/22/2017 3:03 PM Dictated Date/Time: 11/22/2017 3:01 PM PELVIS 1 OR 2 VIEW ROUTINE CLINICAL HISTORY: fall. Pelvic pain. COMPARISON STUDY: Pelvis 10/14/2014. FINDINGS: There is a right total hip arthroplasty. The visualized hardware appears intact. Slight offset of the femoral prosthesis in relation to the acetabular cup consistent with wear of the polyethylene liner. This maintenance unchanged. Heterotopic ossification at the right hip is also unchanged. No acute fracture or dislocation within the pelvis or hips. Interval development of flattening of the left superior femoral head with subchondral lucency and sclerosis. This is consistent with avascular necrosis. There is also superimposed severe osteoarthritis. IMPRESSION: 1. No acute fracture or dislocation within the pelvis or hips. 2. 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 Electronically signed by: Ventura Magallon M.D. 11/22/2017 3:00 PM Dictated Date/Time: 11/22/2017 2:58 PM HEAD WITHOUT CONTRAST (CT) CLINICAL HISTORY: 82 years-old Male presenting with fall. TECHNIQUE: Multidetector CT imaging of the head was performed without the use of intravenous contrast. IV contrast: None. A dose lowering technique was used consistent with the principles of ALARA (as low as reasonably achievable). COMPARISON: None. CT DOSE (mGy.cm): The estimated cumulative dose is 1760.48 mGycm. FINDINGS: Street [employer] Building Decorator topogram: Unremarkable. Ventricles and sulci normal in size. Brain parenchyma normal in appearance with preserved miller-white differentiation. No mass effect or midline shift. No hemorrhage or acute territorial infarct. No extra-axial fluid collection. Polypoid mucosal thickening in the left maxillary sinus. Bilateral external auditory canals are narrowed by bony prominence consistent with external auditory canal exostoses. Calvarium intact. IMPRESSION: 1. No acute intracranial abnormality. Electronically signed by: Randy Wilkinson M.D. 11/22/2017 2:34 PM Dictated Date/Time: 11/22/2017 2:30 PM TWO VIEW CHEST CLINICAL HISTORY: Fall. FINDINGS: AP and lateral chest radiographs are compared to study dated 09/02/2017. The AP views degraded by patient rotation. The patient is status post midline sternotomy. Epicardial pacing leads are noted. The heart is enlarged and there is atherosclerotic calcification of the thoracic aorta. The pulmonary vasculature is noncongested. Bibasilar atelectasis is observed. Chronic interstitial thickening is similar to previous. No focal airspace consolidation or large pleural effusion is identified. There is no pneumothorax. The skeletal structures are osteopenic. Degenerative changes seen throughout the thoracic spine in the shoulders. Chronic posttraumatic deformity is suggested in the left humeral head.. IMPRESSION: Cardiomegaly with no acute cardiopulmonary abnormality. Electronically signed by: Thiago Padilla M.D. 11/22/2017 2:58 PM Dictated Date/Time: 11/22/2017 2:[address] SCAN OF THE CERVICAL SPINE CLINICAL HISTORY: Fall. COMPARISON STUDY: No priors. TECHNIQUE: CT scan of the cervical spine is performed from the skull base to the upper thoracic spine. Images are reviewed in the axial, sagittal, and coronal planes. IV contrast was not administered for this examination. A dose lowering technique was utilized adhering to the principles of ALARA. FINDINGS: Skeletal structures: The skeletal structures are osteopenic. There is no evidence of fracture or subluxation involving the cervical spine. Vertebral body height is maintained. There is minimal anterolisthesis at C2-C3. Alignment is otherwise preserved. There is straightening of the cervical lordosis with reversal centered at C5. The odontoid process and lateral masses are intact. The atlantoaxial articulation is preserved noting productive degenerative change. The spinous processes appear intact. There is moderate multilevel cervical spondylosis. Uncovertebral and facet arthropathy contribute to neural foraminal stenosis at several levels. This is greatest in the lower cervical spine. Intervertebral discs: There is advanced disc space narrowing at C4-C5 and C6-C7. Moderate disc space narrowing seen at C5-C6 and C7-T1. Central canal: Posterior disc osteophyte complexes at C4-C5, C5-C6, and C6-C7 likely contribute to multilevel acquired compromise of the central canal. Soft tissues: The prevertebral and paraspinous soft tissues are within normal limits. Calvarium: The visualized calvarium at the skull base appears intact. Brain parenchyma: Partially visualized brain parenchyma the skull base is within normal limits. Sinuses and mastoids: The visualized paranasal sinuses are clear. The mastoid air cells are well pneumatized. Lung apices: Clear as visualized. IMPRESSION: 1. There is no evidence of fracture or subluxation involving the cervical spine. 2. Osteopenia and spondylotic change as above. Electronically signed by: Thiago Padilla M.D. 11/22/2017 2:37 PM Dictated Date/Time: 11/22/2017 2:32 PM ED Course 1351: The patient was evaluated in room C04. A complete history and physical exam was performed. 1604: I reevaluated the patient. His vitals are stable. Imaging was negative with exception of avascular necrosis on pelvis CT. The patient and his orthopedics team are aware and elected to no do surgeries. He will be discharged in stable condition. DISCHARGE - Plan of care discussed with patient and questions answered. The patient was given both verbal and printed discharge instructions. The patient verbalized understanding and ability to comply. The patient is to seek outpatient follow up as noted in the discharge instructions. The patient verbalized understanding and ability to comply. The patient is discharged in stable condition. The patient was instructed to return for worsening symptoms. Medical Decision His vitals are stable. Imaging was negative with exception of avascular necrosis on pelvis CT. The patient and his orthopedics team are aware and elected to no do surgeries. He will be discharged in stable condition. DISCHARGE - Plan of care discussed with patient and questions answered. The patient was given both verbal and printed discharge instructions. The patient verbalized understanding and ability to comply. The patient is to seek outpatient follow up as noted in the discharge instructions. The patient verbalized understanding and ability to comply. The patient is discharged in stable condition. The patient was instructed to return for worsening symptoms. Medication Reconcilliation Current Medication List: was personally reviewed by me Blood Pressure Screening Patient's blood pressure: Normal blood pressure Impression Primary Impression: Fall Additional Impression: Hematoma Scribe Attestation The scribe's documentation has been prepared under my direction and personally reviewed by me in its entirety. I confirm that the note above accurately reflects all work, treatment, procedures, and medical decision making performed by me. The chart was completed utilizing [employer] Speech voice recognition software. Grammatical errors, random word insertions, pronoun errors, and incomplete sentences are an occasional consequence of this system due to software limitations, ambient noise, and hardware issues. Any formal questions or concerns about the content, text, or information contained within the body of this dictation should be directly addressed to the physician for clarification. Departure Information Dispostion Home / Self-Care (ERASED) Referrals Kori Parmar D.O. (PCP) Dewey Newton M.D. Patient Instructions [facility] Problem Qualifiers Primary Impression: Fall Encounter type: initial encounter Qualified Codes: W19.XXXA - Unspecified fall, initial encounter
[2017-11-22] MEDS ORDERED: GLUC-172 PO (14:22)
--- NOTE | 2017-11-22 14:35 | DIAGNOSTIC IMAGING REPORT ---
HEAD WITHOUT CONTRAST (CT) CLINICAL HISTORY: 82 years-old Male presenting with fall. TECHNIQUE: Multidetector CT imaging of the head was performed without the use of intravenous contrast. IV contrast: None. A dose lowering technique was used consistent with the principles of ALARA (as low as reasonably achievable). COMPARISON: None. CT DOSE (mGy.cm): The estimated cumulative dose is 1760.48 mGycm. FINDINGS: Court Deputy topogram: Unremarkable. Ventricles and sulci normal in size. Brain parenchyma normal in appearance with preserved miller-white differentiation. No mass effect or midline shift. No hemorrhage or acute territorial infarct. No extra-axial fluid collection. Polypoid mucosal thickening in the left maxillary sinus. Bilateral external auditory canals are narrowed by bony prominence consistent with external auditory canal exostoses. Calvarium intact. IMPRESSION: 1. No acute intracranial abnormality. Electronically signed by: Randy Wilkinson M.D. 11/22/2017 2:34 PM Dictated Date/Time: 11/22/2017 2:30 PM
--- NOTE | 2017-11-22 14:38 | DIAGNOSTIC IMAGING REPORT ---
CT SCAN OF THE CERVICAL SPINE CLINICAL HISTORY: Fall. COMPARISON STUDY: No priors. TECHNIQUE: CT scan of the cervical spine is performed from the skull base to the upper thoracic spine. Images are reviewed in the axial, sagittal, and coronal planes. IV contrast was not administered for this examination. A dose lowering technique was utilized adhering to the principles of ALARA. FINDINGS: Skeletal structures: The skeletal structures are osteopenic. There is no evidence of fracture or subluxation involving the cervical spine. Vertebral body height is maintained. There is minimal anterolisthesis at C2-C3. Alignment is otherwise preserved. There is straightening of the cervical lordosis with reversal centered at C5. The odontoid process and lateral masses are intact. The atlantoaxial articulation is preserved noting productive degenerative change. The spinous processes appear intact. There is moderate multilevel cervical spondylosis. Uncovertebral and facet arthropathy contribute to neural foraminal stenosis at several levels. This is greatest in the lower cervical spine. Intervertebral discs: There is advanced disc space narrowing at C4-C5 and C6-C7. Moderate disc space narrowing seen at C5-C6 and C7-T1. Central canal: Posterior disc osteophyte complexes at C4-C5, C5-C6, and C6-C7 likely contribute to multilevel acquired compromise of the central canal. Soft tissues: The prevertebral and paraspinous soft tissues are within normal limits. Calvarium: The visualized calvarium at the skull base appears intact. Brain parenchyma: Partially visualized brain parenchyma the skull base is within normal limits. Sinuses and mastoids: The visualized paranasal sinuses are clear. The mastoid air cells are well pneumatized. Lung apices: Clear as visualized. IMPRESSION: 1. There is no evidence of fracture or subluxation involving the cervical spine. 2. Osteopenia and spondylotic change as above. Electronically signed by: Thiago Padilla M.D. 11/22/2017 2:37 PM Dictated Date/Time: 11/22/2017 2:32 PM
--- NOTE | 2017-11-22 14:59 | DIAGNOSTIC IMAGING REPORT ---
LEFT SHOULDER 3 VIEWS HISTORY: Left shoulder pain. fall COMPARISON: Left shoulder 10/18/2017. FINDINGS: There is again noted severe osteoarthritis at the glenohumeral joint with large marginal osteophytes and isap-at-cyao articulation. No fracture or dislocation within the left shoulder. The left clavicle is intact. Soft tissues are unremarkable. No radiopaque foreign bodies. IMPRESSION: Severe osteoarthritis at the glenohumeral joint. No fracture or dislocation within the left shoulder. Electronically signed by: Ventura Magallon M.D. 11/22/2017 2:58 PM Dictated Date/Time: 11/22/2017 2:57 PM
--- NOTE | 2017-11-22 15:00 | DIAGNOSTIC IMAGING REPORT ---
TWO VIEW CHEST CLINICAL HISTORY: Fall. FINDINGS: AP and lateral chest radiographs are compared to study dated 09/02/2017. The AP views degraded by patient rotation. The patient is status post midline sternotomy. Epicardial pacing leads are noted. The heart is enlarged and there is atherosclerotic calcification of the thoracic aorta. The pulmonary vasculature is noncongested. Bibasilar atelectasis is observed. Chronic interstitial thickening is similar to previous. No focal airspace consolidation or large pleural effusion is identified. There is no pneumothorax. The skeletal structures are osteopenic. Degenerative changes seen throughout the thoracic spine in the shoulders. Chronic posttraumatic deformity is suggested in the left humeral head.. IMPRESSION: Cardiomegaly with no acute cardiopulmonary abnormality. Electronically signed by: Thiago Padilla M.D. 11/22/2017 2:58 PM Dictated Date/Time: 11/22/2017 2:56 PM
--- NOTE | 2017-11-22 15:01 | DIAGNOSTIC IMAGING REPORT ---
PELVIS 1 OR 2 VIEW ROUTINE CLINICAL HISTORY: fall. Pelvic pain. COMPARISON STUDY: Pelvis 10/14/2014. FINDINGS: There is a right total hip arthroplasty. The visualized hardware appears intact. Slight offset of the femoral prosthesis in relation to the acetabular cup consistent with wear of the polyethylene liner. This maintenance unchanged. Heterotopic ossification at the right hip is also unchanged. No acute fracture or dislocation within the pelvis or hips. Interval development of flattening of the left superior femoral head with subchondral lucency and sclerosis. This is consistent with avascular necrosis. There is also superimposed severe osteoarthritis. IMPRESSION: 1. No acute fracture or dislocation within the pelvis or hips. 2. 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 Electronically signed by: Ventura Magallon M.D. 11/22/2017 3:00 PM Dictated Date/Time: 11/22/2017 2:58 PM
--- NOTE | 2017-11-22 15:04 | DIAGNOSTIC IMAGING REPORT ---
THORACIC SPINE 3 VIEWS ROUTINE CLINICAL HISTORY: 82 years-old Male presenting with fall. TECHNIQUE: 3 views of the thoracic spine were obtained. COMPARISON: None. FINDINGS: Median sternotomy wires and mediastinal surgical clips evident. Epicardial pacing wires noted. Atherosclerosis of aortic arch. Normal thoracic kyphosis. The upper thoracic spine is partially obscured due to overlapping osseous structures. Vertebral bodies maintain normal height and alignment. Significant multilevel degenerative changes though intervertebral disc heights are preserved. No radiographic evidence of a compression deformity. No gross evidence of osseous neural foraminal narrowing. Minimal dextrocurvature of the thoracic spine. IMPRESSION: 1. Multilevel degenerative changes of the thoracic spine. 2. No radiographic evidence of a compression deformity. Electronically signed by: Randy Wilkinson M.D. 11/22/2017 3:03 PM Dictated Date/Time: 11/22/2017 3:01 PM
[2017-11-22 16:04] VITALS: BP 143/75; PULSE 63; O2SAT 93
== END 2017-11-22 16:05 | disposition home or self-care (01) ==
LOC: EDBD 13:53 → C.EDC 13:54
DX: S40.012A Contusion of left shoulder, initial encounter (principal); W01.198A Fall on same level from slipping, tripping and stumbling with subsequent striking against other object, initial encounter; I50.33 Acute on chronic diastolic (congestive) heart failure; I11.0 Hypertensive heart disease with heart failure; N40.1 Benign prostatic hyperplasia with lower urinary tract symptoms; Z95.1 Presence of aortocoronary bypass graft; E11.9 Type 2 diabetes mellitus without complications; E78.5 Hyperlipidemia, unspecified; I25.2 Old myocardial infarction; E66.9 Obesity, unspecified; Z85.46 Personal history of malignant neoplasm of prostate; K21.9 Gastro-esophageal reflux disease without esophagitis; Z87.440 Personal history of urinary (tract) infections; Z83.3 Family history of diabetes mellitus; Z82.49 Family history of ischemic heart disease and other diseases of the circulatory system; Z80.0 Family history of malignant neoplasm of digestive organs; Z80.42 Family history of malignant neoplasm of prostate; Z87.891 Personal history of nicotine dependence; Z79.84 Long term (current) use of oral hypoglycemic drugs; Z79.899 Other long term (current) drug therapy; Z79.01 Long term (current) use of anticoagulants; Z91.048 Other nonmedicinal substance allergy status; Z88.0 Allergy status to penicillin; Z88.8 Allergy status to other drugs, medicaments and biological substances; Z91.030 Bee allergy status